=== PATIENT | female | born 1955 | race Caucasian/White ===

== ENCOUNTER → 2017-04-15 | Outpatient (CLI) | payer BC ==
--- NOTE | 2017-04-11 08:23 | MH ---
cc: CARLYLE MARTÍNEZ DATE OF ADMISSION 04/15/2017 ADMISSION DIAGNOSIS Cloudy posterior capsule right eye. HISTORY OF PRESENT ILLNESS This 61-year-old white female who is coming through [facility] for the purpose of a YAG laser posterior capsulotomy on the right eye. She had noticed decreasing visual acuity interfering with her daily activities and was found to have a cloudy posterior capsule in her right eye and a cataract in her left eye. She has elected to have a YAG laser posterior capsulotomy in her right eye at this time and then later will proceed with cataract surgery. PAST MEDICAL HISTORY The patient has a history of diabetes type 1. PAST SURGICAL HISTORY Includes finger surgery in 2016. MEDICATIONS Daily medications include: 1. Irbesartan 2. Raloxifene 3. Calcium 4. Insulin 5. 325 mg of aspirin at bedtime. ALLERGIES She has no known allergies. SOCIAL HISTORY Noncontributory FAMILY HISTORY Positive for parents with glaucoma. REVIEW OF SYSTEMS Noncontributory PHYSICAL EXAM On ocular exam, the patient's best corrected visual acuity in room light is 20/40 -1 in the right eye and 20/50 -1 in the left. Visual petersen are full to confrontation testing. Extraocular muscle exam reveals full versions with orthophoria in the distance and exophoria at near. Pupils are 3 mm equal, round, reactive to light without afferent defect. Anterior segment examination reveals a posterior chamber intraocular lens in place in the right eye with a cloudy posterior capsule. There is nuclear sclerotic and central anterior cortical cataract change in the left eye. Intraocular pressure is 17 in the right eye and 18 in the left by applanation tonometry. Dilated fundus exam revealed sharp disk with cup-to-disk ratio 0.2 bilaterally. There is one microaneurysm noted parafoveally in the right eye and the macula is clear in the left. A posterior vitreous detachment is present bilaterally. There is fine background drusen present around the ends of the vessel arcades. IMPRESSION 1. Cloudy posterior capsule right eye. 2. Pseudophakia right eye. 3. Cataract left eye. 4. Posterior vitreous detachment both eyes. 5. Minimal nonproliferative diabetic retinopathy right eye. PLAN YAG laser posterior capsulotomy of the right eye through [facility]. MD CHRIS Feliciano/SANJANA /10:44 AM /8:19 AM
[~2017-04-15] MED LIST: AMIT10TA6 PO; BALANCED SALT SOLN OPHT IRRIG 15 ML BTL ONE; ESTR42.5V VAGINAL; FLUOROMETHOLONE 0.25% OPHT SUSP 5 ML BTL ONE; FLUT50SP EACH NARE; HYPROMELLOSE 0.3 % OPTH GEL 10 GM (0.34 FL OZ) TUBE ONE; IRBE150T15 PO; MULT-65 PO; NOVOLOGP2 SQ; PHENYLEPHRINE HCL 2.5% OPTH SOLN 2 ML BTL ONE; PROPARACAINE HCL 0.5% OPHT SOLN 15 ML BTL ONE; RALO1TAB PO; TROPICAMIDE 1% OPHT SOLN 15 ML BTL ONE; [UNRECOGNIZED DRUG - CODE] TOP
--- NOTE | 2017-04-16 15:22 | MP ---
cc: CARLYLE SWEET DATE OF SURGERY: 04/15/2017 PREOPERATIVE DIAGNOSIS: Cloudy posterior capsule right eye. POSTOPERATIVE DIAGNOSIS: Cloudy posterior capsule right eye. OPERATION: YAG laser posterior capsulotomy, right eye. SURGEON: Carlyle Sweet MD ANESTHESIA: Topical. COMPLICATIONS: None. INDICATIONS: See history and physical previously dictated. PROCEDURE: The patient arrived at [facility]. Blood pressure was 95/57, pulse 84, respirations 16. A drop of Alphagan P and Mydriacyl were instilled in the right eye. The patient was seated at the YAG laser. A drop of Alcaine was instilled in the right eye and a YAG laser posterior capsulotomy lens was placed on the anterior surface of the right cornea. YAG laser posterior capsulotomy was carried out utilizing 22 exposures of 1.8 millijoules. An adequate opening was seen following the procedure. A drop of Alphagan P was instilled topically. The patient was given a prescription for a topical steroid to be used four times per day and has an appointment for follow up on the first postoperative day in my office. The patient left the [facility] in satisfactory condition. Carlyle Sweet MD DIRECTOR PERIOPERATIVE/ /12:09 PM /3:12 PM
== END ==
LOC: PHSDC 10:27
PROVIDERS: ATTEND Ophthalmology
DX: H26.40 Unspecified secondary cataract (principal)

== ENCOUNTER → 2017-05-06 | Outpatient (CLI) | payer BC ==
[~2017-05-06] MED LIST changes: -BALANCED SALT SOLN OPHT IRRIG 15 ML BTL ONE; -FLUOROMETHOLONE 0.25% OPHT SUSP 5 ML BTL ONE; -HYPROMELLOSE 0.3 % OPTH GEL 10 GM (0.34 FL OZ) TUBE ONE; -PHENYLEPHRINE HCL 2.5% OPTH SOLN 2 ML BTL ONE; -PROPARACAINE HCL 0.5% OPHT SOLN 15 ML BTL ONE; -TROPICAMIDE 1% OPHT SOLN 15 ML BTL ONE
[2017-05-06 11:08] LABS: AUTOMATED NEUTROPHIL # 2.5 TH/MM3 (1.8-7.7); BASOPHIL % 0.6 % (0.0-2.0); EOSINOPHIL # 0.1 TH/MM3 (0-0.4); EOSINOPHIL % 2.9 % (0.0-4.0); HEMATOCRIT 37.8 % (35.0-46.0); HEMO FLAGS DIFF FINAL; LYMPH % 33.2 % (9.0-44.0); LYMPHOCYTE # 1.6 TH/MM3 (1.0-4.8); MEAN CELL VOLUME 95.5 FL (80.0-100.0); MEAN CORPUSCULAR HEMOGLOBIN 32.6 PG (27.0-34.0); MEAN CORPUSCULAR HGB CONC 34.2 % (32.0-36.0); MONO % 14.6 % (0.0-8.0); NEUT % 48.7 % (16.0-70.0); PLATELET COUNT 272 TH/MM3 (150-450); RED BLOOD COUNT 3.95 MIL/MM3 (4.00-5.30); RED CELL DISTRIBUTION WIDTH 12.5 % (11.6-17.2); WHITE BLOOD COUNT 4.9 TH/MM3 (4.0-11.0)
--- NOTE | 2017-05-06 11:51 | EKG ---
Date Performed: 05/06/2017 Time Performed: 11:07:30 PTAGE: 61 years EKG: Sinus rhythm WITH SHORT MS INTERVAL BORDERLINE ECG PREVIOUS TRACING : 01/21/2015 14.44 No significant change from previous tracing noted DOCTOR: Pedrito Jimenes Interpretating Date/Time 05/06/2017 11:50:44
== END ==
LOC: PHPRE 08:45
PROVIDERS: ATTEND Ophthalmology
DX: Z01.810 Encounter for preprocedural cardiovascular examination (principal); Z01.812 Encounter for preprocedural laboratory examination; H26.9 Unspecified cataract; R94.31 Abnormal electrocardiogram [ECG] [EKG]
CPT/HCPCS: 36415; 85025; 93005

== ENCOUNTER → 2017-05-20 | Day surgery (SDC) | payer BC ==
--- NOTE | 2017-05-14 13:36 | MH ---
cc: [facility], CARLYLE MARTÍNEZ DATE OF ADMISSION: 05/20/2017 ADMISSION DIAGNOSIS Cataract, left eye. HISTORY OF PRESENT ILLNESS This 61-year-old white female is coming through [facility] for the purpose of a lens extraction of the left eye with intraocular lens implant under local anesthesia. The patient has a history of cataract surgery and YAG laser posterior capsulotomy in her right eye in the past and has done well postoperatively. She now has noticed decreased acuity in that her left eye and elected to have a cataract procedure in that eye at this time. Her best-corrected visual acuity is 20/25 -3 in the right eye and 20/60 in the left eye. PAST MEDICAL HISTORY The patient has a history of type 1 diabetes. PAST SURGICAL HISTORY 1. Finger surgery in 2016. 2. The above-mentioned cataract surgery and YAG laser posterior capsulotomy on the right eye in the past. MEDICATIONS Daily medications include: 1. Irbesartan. 2. Raloxifene. 3. Calcium. 4. Insulin. 5. One regular aspirin at bedtime. ALLERGIES The patient has no known allergies. SOCIAL HISTORY The patient smoked cigarettes in the past for 20 years, just a few cigarettes a day, but now no longer smokes. She also has a history of drinking two beers daily in the evening. FAMILY HISTORY The family history is positive for mother and father with cataracts. REVIEW OF SYSTEMS HEAD: Patient denies severe headaches, dizziness or recent head injury. EARS: Patient denies hearing loss, ear pain, discharge or ringing in the ears. NOSE: Patient denies nasal discharge, obstruction or frequent colds. MOUTH AND THROAT: Patient denies soreness of the mouth or tongue, bleeding gums, trouble swallowing, changes in voice or sore throat. NECK: Patient denies neck pain or swelling, limitation of neck movement or neck injury. CARDIOPULMONARY SYSTEM: Patient denies shortness of breath, orthopnea, chronic cough, sputum production, hemoptysis, chest pain, wheezing, palpitations or light-headedness. GI SYSTEM: Patient denies poor appetite, nausea, vomiting, abdominal pain, ulcers, hemorrhoids or change in bowel habits. SYSTEM: The patient denies urinary frequency, dysuria, change in urine color. NERVOUS SYSTEM: Patient denies convulsions, vertigo, stroke, numbness or weakness. PHYSICAL EXAMINATION VITAL SIGNS: Blood pressure 100/58, pulse 88, respirations 20. HEAD: Normocephalic, atraumatic. NOSE: Without rhinorrhea. THROAT: Clear. NECK: Supple. CHEST: Clear. HEART: Regular rhythm. ABDOMEN: Without tenderness. EXTREMITIES: Without edema. NEUROLOGIC: Within normal limits. MENTAL STATUS: Within normal limits. EYE EXAM: The patient's best-corrected visual acuity is 20/25 -3 in the right eye and 20/60 in the left. Visual petersen are full to confrontation testing. Extraocular muscle exam reveals full versions with orthophoria in the distance and exophoria at near. Pupils are 3 mm, equal, round, reactive to light without afferent defect. Anterior segment examination reveals a posterior chamber intraocular lens in place in the right eye with a YAG laser posterior capsulotomy. There are nuclear sclerotic and central anterior cortical cataract changes in the left eye. Intraocular pressure is 20 in the right eye and 17 in the left eye by applanation tonometry. Dilated fundus exam reveals sharp disks with cup-to-disk ratio of 0.2 bilaterally. The macula is clear bilaterally. A posterior vitreous detachment is present bilaterally and there are fine drusen in the background, particularly in the right eye. IMPRESSION 1. Cataract, left eye. 2. Pseudophakia, right eye. 3. Posterior vitreous detachment, both eyes. PLAN The plan is lens extraction of the left eye with intraocular lens implant under local anesthesia through [facility]. The patient has been cleared medically. She has been counseled as to the risks, benefits and alternatives and elected to proceed. I feel that cataract surgery will improve the quality of life and activities of daily living in this patient. MD CHRIS Feliciano/MAXIMILIAN /1:07 PM /1:25 PM
[~2017-05-20] VITALS: Ht 154.9 cm; Wt 47.5 kg
[~2017-05-20] MED LIST changes: +ACETYLCHOLINE CHL OPHT SOLN 1:100 2 ML VIAL ONE; +CHLORHEXIDINE GLUCONATE 2 % 1 PACK (2 CLOTHS) TOPICAL PRN; +EPINEPHrine HCL (1:1000) 1 MG/ML VIAL ONE; +HYALURONIDASE/LIDOCAINE/BUPIVACAINE 4.5 ML SYR LEFT EYE ONE; +HYALURONIDASE/LIDOCAINE/BUPIVACAINE 6 ML SYR LEFT EYE ONE; +INSULIN HUMAN REGULAR 1,000 UNITS/10 ML VIAL SQ PRN; +LACTATED RINGER'S 1000 ML IV PRN; +METOPROLOL TARTRATE 25 MG TAB PO PRN; +MIDAZOLAM HCL 2 MG/2 ML VIAL ONE; +PILOCARPINE HCL 2% OPHT SOLN 15 ML BTL ONE; +POVIDONE IODINE 5% (ANTISEPSIS KIT) 4 APPLICATIONS EACH NARE PRN; +PROPARACAINE HCL 0.5% OPHT SOLN 15 ML BTL LEFT EYE ONE; +PROPOFOL 200 MG/20 ML AMP ONE; +SODIUM CHLOR 0.9% 250 ML INJ 250 ML IV ONE; +SODIUM CHLORID 0.9% 500 ML IV PRN; +TOBRAMYCIN/DEXAMETHASONE OPTH OINT 3.5 GM TUBE ONE; +VISCOAT OPHT IRRIG SOLN 0.75 ML SYRINGE ONE; -[UNRECOGNIZED DRUG - CODE] TOP
[2017-05-20] MEDS: CYCLOPENTOLATE HCL 1% OPHT SOLN 2 ML BTL LEFT EYE SCH ×4 (08:29→08:38)
[2017-05-20] MEDS: PHENYLEPHRINE HCL 2.5% OPTH SOLN 2 ML BTL LEFT EYE SCH ×4 (08:29→08:38)
[2017-05-20] MEDS: TROPICAMIDE 1% OPHT SOLN 15 ML BTL LEFT EYE SCH ×4 (08:29→08:38)
[2017-05-20] MEDS: GATIFLOXACIN 0.5% OPHT SOLN 2.5 ML BTL LEFT EYE SCH ×4 (08:29→08:38)
[2017-05-20] MEDS: DICLOFENAC SOD 0.1% OPHT SOLN 2.5 ML BTL LEFT EYE SCH ×4 (08:29→08:38)
[2017-05-20 08:30] VITALS: PULSE 80
[2017-05-20 09:07] VITALS: PULSE 76
[2017-05-20 11:10] VITALS: TEMP 98.8
--- NOTE | 2017-05-20 11:19 | MP ---
cc: CARLYLE SWEET DATE OF SURGERY: 05/20/2017 PREOPERATIVE DIAGNOSIS Cataract, left eye. POSTOPERATIVE DIAGNOSIS Cataract left eye. OPERATION Extracapsular cataract extraction with posterior chamber intraocular lens implant by phacoemulsification, left eye. SURGEON Carlyle Sweet M.D. ANESTHESIA Local. COMPLICATIONS None. INDICATIONS See history and physical previously dictated. OPERATIVE PROCEDURE The patient had adequate retrobulbar and eyelid blocks administered in the holding area and was brought to the operating room. The left eye was prepped and draped in the usual sterile ophthalmic manner. A lid speculum was inserted in the left eye. A 4-0 silk bridle suture was placed through the conjunctiva near the superior rectus muscle and it was tacked to the drape. A fornix-based conjunctival flap was prepared spanning approximately 5 mm in width. Hemostasis was obtained with wet-field cautery. A 3.5 mm groove was made 1 mm from the limbus and dissected up to the limbus in the form of a scleral pocket incision. A stab incision was then made at the 2 o'clock position. Viscoelastic was injected into the anterior chamber. The anterior chamber was entered with a 2.75 mm keratome through the scleral pocket incision. A 360 degree continuous curvilinear capsulorrhexis was then performed. Hydrodissection was utilized to divide the nucleus into inner and outer components and to separate the cortex from the capsule. Phacoemulsification was then utilized to remove the nucleus. The outer nuclear layer was removed with irrigation and aspiration and short bursts of ultrasound as necessary. The cortex was removed with the irrigation-aspiration handpiece. The posterior capsule was polished with the capsule polisher. Viscoelastic was injected into the capsular bag. The intraocular lens was inspected and found to be in good condition. The lens utilized was a Jeff, model [id number] with a power of +23.5 diopters. The lens was inserted into the capsular bag. The viscoelastic in the anterior chamber was then removed with the irrigation-aspiration handpiece. Viscoelastic was also removed from beneath the intraocular lens. The anterior chamber was filled with Miochol-E through the stab incision and pressurized. The wound was checked for leaks at this pressure and normalized pressure, and there were none. The 4-0 bridle suture was removed. The conjunctival flap was brought down over the wound and secured with cautery. Pilocarpine 2% eye drops were instilled topically. The lid speculum was removed. TobraDex ophthalmic ointment was applied. The eye was double patched and shielded. The patient tolerated the procedure well and left the Operating Room in satisfactory condition. MD CHRIS Feliciano/MAXIMILIAN /11:09 AM /11:15 AM
[2017-05-20 11:45] VITALS: BP 111/59; PULSE 84; RESP 15; O2SAT 93
== END | disposition home or self-care (01) ==
LOC: PHSDC 07:40
PROVIDERS: ATTEND Ophthalmology
DX: H26.9 Unspecified cataract (principal); H43.813 Vitreous degeneration, bilateral; E10.9 Type 1 diabetes mellitus without complications; Z87.891 Personal history of nicotine dependence
CPT/HCPCS: 00142; 66984; 82948; J0171; J2250; J7040; J7050; V2632

== ENCOUNTER 2017-11-28 14:24 | Inpatient (IN) | payer BC ==
[~2017-11-28] VITALS: Ht 162.6 cm; Wt 45.7 kg
[2017-11-28] VITALS (30 sets, daily range): BP systolic 81–176; BP diastolic 46–132; PULSE 88–124; RESP 13–41; TEMP 98.4; O2SAT 88–100
[~2017-11-28 14:24] MED LIST changes: -ACETYLCHOLINE CHL OPHT SOLN 1:100 2 ML VIAL ONE; -CHLORHEXIDINE GLUCONATE 2 % 1 PACK (2 CLOTHS) TOPICAL PRN; -EPINEPHrine HCL (1:1000) 1 MG/ML VIAL ONE; -HYALURONIDASE/LIDOCAINE/BUPIVACAINE 4.5 ML SYR LEFT EYE ONE; -HYALURONIDASE/LIDOCAINE/BUPIVACAINE 6 ML SYR LEFT EYE ONE; -INSULIN HUMAN REGULAR 1,000 UNITS/10 ML VIAL SQ PRN; -LACTATED RINGER'S 1000 ML IV PRN; -METOPROLOL TARTRATE 25 MG TAB PO PRN; -MIDAZOLAM HCL 2 MG/2 ML VIAL ONE; -PILOCARPINE HCL 2% OPHT SOLN 15 ML BTL ONE; -POVIDONE IODINE 5% (ANTISEPSIS KIT) 4 APPLICATIONS EACH NARE PRN; -PROPARACAINE HCL 0.5% OPHT SOLN 15 ML BTL LEFT EYE ONE; -PROPOFOL 200 MG/20 ML AMP ONE; -SODIUM CHLOR 0.9% 250 ML INJ 250 ML IV ONE; -SODIUM CHLORID 0.9% 500 ML IV PRN; -TOBRAMYCIN/DEXAMETHASONE OPTH OINT 3.5 GM TUBE ONE; -VISCOAT OPHT IRRIG SOLN 0.75 ML SYRINGE ONE
[2017-11-28] MEDS ORDERED: DEXT 5%-NACL 0.9% 1000 ML INJ 1,000 ML IV SCH (14:28)
[2017-11-28] MEDS ORDERED: SODIUM CHLOR 0.9% 1000 ML INJ 1,000 ML IV ONE ×2 (14:28→14:58)
[2017-11-28] MEDS ORDERED: POTASSIUM CHLOR 40 MEQ PREMIX 100 ML IV PRN ×2 (14:30)
[2017-11-28] MEDS ORDERED: SODIUM PHOSPHATE INJ 15 MMOL in SODIUM CHLORIDE 0.9% INJ 100 ML IV PRN (14:30)
[2017-11-28] MEDS ORDERED: SODIUM BICARBONATE 8.4% SOLN 50 MEQ/50 ML VIAL IV PUSH PRN ×2 (14:30)
[2017-11-28] MEDS ORDERED: INSULIN HUMAN REGULAR 1,000 UNITS/10 ML VIAL IV PUSH ONE (14:30)
[2017-11-28] MEDS ORDERED: POTASSIUM CHLOR 20 MEQ PREMIX 100 ML IV PRN ×5 (14:30)
[2017-11-28] MEDS ORDERED: INSULIN REGULAR (IV INFUSION) 100 UNITS in SODIUM CHLORIDE 0.9% INJ 99 ML IV PRN ×2 (14:30→14:45)
[2017-11-28] MEDS ORDERED: SODIUM CHLORIDE 0.9% FLUSH 10 ML FLUSH IVF PRN (14:30)
[2017-11-28] MEDS: SODIUM CHLOR 0.9% 1000 ML INJ 1,000 ML IV SCH ×3 (14:52→19:18)
[2017-11-28 15:17] LABS: AUTOMATED NEUTROPHIL # 21.8 TH/MM3 (1.8-7.7); BASOPHIL # 0.2 TH/MM3 (0-0.2); BASOPHIL % 0.7 % (0.0-2.0); HEMATOCRIT 35.1 % (35.0-46.0); HEMOGLOBIN 11.1 GM/DL (11.6-15.3); LYMPH % 6.8 % (9.0-44.0); LYMPHOCYTE # 1.7 TH/MM3 (1.0-4.8); MEAN CELL VOLUME 101.4 FL (80.0-100.0); MEAN CORPUSCULAR HEMOGLOBIN 32.1 PG (27.0-34.0); MEAN CORPUSCULAR HGB CONC 31.6 % (32.0-36.0); MONO % 5.4 % (0.0-8.0); MONOCYTE # 1.4 TH/MM3 (0-0.9); NEUT % 87.1 % (16.0-70.0); PLATELET COUNT 309 TH/MM3 (150-450); RED BLOOD COUNT 3.46 MIL/MM3 (4.00-5.30); RED CELL DISTRIBUTION WIDTH 13.1 % (11.6-17.2); WHITE BLOOD COUNT 25.1 TH/MM3 (4.0-11.0)
--- NOTE | 2017-11-28 15:17 | RADRPT ---
EXAM DATE/TIME: 11/28/2017 14:48 [facility] COMPARISON: CHEST SINGLE AP, January 21, 2015, 11:45. INDICATIONS : Short of breath MEDICAL HISTORY : Diabetes mellitus type I. SURGICAL HISTORY : None. ENCOUNTER: Initial ACUITY: 1 day PAIN SCORE: Non-responsive. LOCATION: Bilateral chest FINDINGS: Mild motion degraded AP view of the chest demonstrates a normal-sized cardiac silhouette. No effusion , consolidation, or pneumothorax is identified. There is a nodular density overlying the right lower lung zone measuring approximately 8 mm. The bones and soft tissues demonstrate no acute finding. CONCLUSION: 1. No acute finding is identified to explain the shortness of breath. 2. There is an 8mm nodule overlying the right lower lung zone. Based on location I believe this most likely represents a nipple shadow. However, consider repeat frontal and lateral chest x-ray with nipp le markers or consider chest CT for further evaluation. Uziel Troy MD on November 28, 2017 at 15:13 Board Certified Radiologist. This report was verified electronically.
[2017-11-28 15:24] LABS: CHLORIDE 102 MEQ/L (98-107); SODIUM (NA) 135 MEQ/L (136-145)
[2017-11-28 15:28] LABS: ALBUMIN 3.3 GM/DL (3.4-5.0); BICARBONATE 5.4 MEQ/L (21.0-32.0); BLOOD UREA NITROGEN 49 MG/DL (7-18); CALCIUM 8.2 MG/DL (8.5-10.1); MAGNESIUM 2.4 MG/DL (1.5-2.5)
[2017-11-28 15:32] LABS: ALT (GPT) 15 U/L (10-53); AST (GOT) 15 U/L (15-37); GLOMERULAR FILTRATION RATE 24 ML/MIN (>89); TOTAL BILIRUBIN ADULT 0.5 MG/DL (0.2-1.0)
[2017-11-28 15:36] LABS: BILIRUBIN, URINE NEG (NEG); BLOOD, URINE TRACE (NEG); GLUCOSE,URINE 1000 OR GREATER mg/dL (NEG); KETONE, URINE 80 OR GREATER mg/dL (NEG); NITRITE,URINE NEG (NEG); URINE COLOR YELLOW (YELLW/STRAW); URINE LEUKOCYTE ESTERASE NEG (NEG)
[2017-11-28] MEDS ORDERED: SODIUM BICARBONATE 8.4% SOLN 50 MEQ/50 ML VIAL SLOW IVP ONE (15:45)
[2017-11-28] MEDS ORDERED: CALCIUM GLUCONATE 10% 1 GM/10 ML VIAL SLOW IVP ONE (15:45)
[2017-11-28 15:47] LABS: RBC, URINE 0-3 /hpf (0-3); SQUAMOUS EPITHELIAL CELL URINE 0-5 /hpf (0-5)
[2017-11-28 15:52] LABS: ALKALINE PHOSPHATASE 71 U/L (45-117); TROPONIN I 0.04 NG/ML (0.02-0.05)
[2017-11-28 15:55] LABS: GLUCOSE,RANDOM 808 MG/DL (74-106)
[2017-11-28] MEDS ORDERED: SENNOSIDES 8.6 MG TAB PO PRN (16:00)
[2017-11-28] MEDS ORDERED: ACETAMINOPHEN/HYDROcodone 325 MG/5 MG TAB PO PRN (16:00)
[2017-11-28] MEDS ORDERED: MAGNESIUM HYDROXIDE SUSP 30 ML CUP PO PRN (16:00)
[2017-11-28] MEDS ORDERED: ACETAMINOPHEN 325 MG TAB PO PRN (16:00)
[2017-11-28] MEDS ORDERED: LACTULOSE SYRUP 20 GM/30 ML CUP PO PRN (16:00)
[2017-11-28] MEDS ORDERED: NURSING INFORMATION XX SCH ×2 (16:00→16:15)
[2017-11-28] MEDS: RESP: ALBUTEROL 2.5 MG/IPRATROPIUM 0.5 MG NEB (SCH) INH ×2 (16:00→22:05)
[2017-11-28] MEDS ORDERED: CHLORHEXIDINE GLUCONATE 2 % 1 PACK (2 CLOTHS) TOP PRN ×2 (16:00→16:15)
[2017-11-28] MEDS ORDERED: BISACODYL 10 MG SUPP RECTAL PRN (16:00)
[2017-11-28] MEDS ORDERED: SODIUM CHLORIDE 0.9% FLUSH 10 ML FLUSH IV FLUSH PRN (16:00)
[2017-11-28] MEDS ORDERED: ONDANSETRON HCL 4 MG/2 ML VIAL IV PUSH PRN ×2 (16:00→16:15)
[2017-11-28] MEDS ORDERED: RESP: ALBUTEROL 2.5 MG/IPRATROPIUM 0.5 MG NEB (PRN) INH (16:15)
--- NOTE | 2017-11-28 16:19 | RADRPT ---
EXAM DATE/TIME: 11/28/2017 15:46 [facility] COMPARISON: No previous studies available for comparison. INDICATIONS : Altered mental status. RADIATION DOSE: 36.07 CTDIvol (mGy) MEDICAL HISTORY : Diabetes mellitus type 2. SURGICAL HISTORY : None. ENCOUNTER: Initial ACUITY: 1 day PAIN SCALE: Non-responsive LOCATION: cranial TECHNIQUE: Multiple contiguous axial images were obtained of the head. Using automated exposure control and adj ustment of the mA and/or kV according to patient size, radiation dose was kept as low as reasonably a chievable to obtain optimal diagnostic quality images. DICOM format image data is available electro nically for review and comparison. FINDINGS: CEREBRUM: The ventricles are prominent suggesting central cerebral atrophy versus hydrocephalus. Clinical corre lation is recommended. No evidence of midline shift, mass lesion, hemorrhage or acute infarction. No extra-axial fluid collections are seen. POSTERIOR FOSSA: The cerebellum and brainstem are intact. The 4th ventricle is midline. The cerebellopontine angle i s unremarkable. EXTRACRANIAL: The visualized portion of the orbits is intact. SKULL: The calvaria is intact. No evidence of skull fracture. CONCLUSION: 1. Ventriculomegaly suggesting central cerebral atrophy versus hydrocephalus. Clinical correlation is recommended. 2. No acute infarct, acute hemorrhage, midline shift or extra-axial fluid collections. Dev Christopher MD on November 28, 2017 at 16:14 Board Certified Radiologist. This report was verified electronically.
[2017-11-28] MEDS ORDERED: MIDAZOLAM HCL 2 MG/2 ML VIAL IV PUSH ONE ×2 (16:30)
[2017-11-28] MEDS ORDERED: TERBUTALINE INJ 1 MG/ML AMP SQ PRN ×2 (16:30→17:00)
[2017-11-28] MEDS ORDERED: DOPamine 800 MG/500 ML INJ 500 ML IV PRN (16:30)
--- NOTE | 2017-11-28 17:03 | PD ---
HPI Chief Complaint: Altered Mental Status Time Seen by Provider: 14:28 Travel History International Travel<30 days: No Contact w/Intl Traveler<30days: No Traveled to known affect area: No History of Present Illness HPI 61-year-old female came to the emergency room with history of being found unresponsive and altered mental status. She was last seen normal by her boyfriend who had dropped her home after date in the evening. She recently had an insulin pump put in which she had mentioned to her boyfriend that she does not think is working. He did not hear back from her today and sent well visit check when the people found her unresponsive. EMS brought her in emergently with a GCS of 13 and blood sugar reading high on the monitor. She was tachycardic. Patient continued to be altered mental status and not responding with a GCS of 12. [facility] Past Medical History Narrative Medical List of her past medical, surgical, social and family history is reviewed from the nursing note. Cancer: No Cardiovascular Problems: No Diabetes: Yes (TYPE 1 DIABETES (INSULIN PUMP)) Patient Takes Glucophage: No Diminished Hearing: No Endocrine: Yes (TYPE 1 DIABETES (INSULIN PUMP)) Genitourinary: No Hepatitis: No Hiatal Hernia: No Hypertension: Yes Immune Disorder: No Musculoskeletal: No Neurologic: No Psychiatric: Yes (ANXIETY) Reproductive: No Respiratory: No Thyroid Disease: No Menopausal: Yes Past Surgical History Abdominal Surgery: No AICD: No Body Medical Devices: INSULIN PUMP Cardiac Surgery: No Ear Surgery: No Endocrine Surgery: No Eye Surgery: Yes (RIGHT CATARACT SURGERY) Genitourinary Surgery: No Gynecologic Surgery: No Joint Replacement: No Oral Surgery: Yes (DENTAL IMPLANTS) Pacemaker: No Thoracic Surgery: No Other Surgery: Yes Social History Alcohol Use: No Tobacco Use: No Substance Use: No Allergies-Medications (Allergen,Severity, Reaction): Coded Allergies: No Known Allergies (Unverified Allergy, Unknown, 11/28/17) Comments No known drug allergies. Reported Meds & Prescriptions Reported Meds & Active Scripts Active Fluticasone Nasal [place] 50 Mcg/Act Naspr 50 Mcg EACH NARE BID 50 mcg/spray Estrace Vaginal (Estradiol) 0.01% Cream 42.5 Gm VAGINAL HS Irbesartan 150 Mg Tab 150 Mg PO DAILY Reported Multi-Vitamin Daily (Multiple Vitamin) 1 Tab Tab 1 Tab PO DAILY Novolog Inj (Insulin Aspart) 1,000 Unit/10 Ml Vial 0 SQ DIRECTED INSULIN PUMP; SLIDING SCALE Amitriptyline (Amitriptyline HCl) 10 Mg Tab 10 Mg PO HS Raloxifene (Raloxifene HCl) 60 Mg Tab 60 Mg PO DAILY Narrative Medication List of her home medications reviewed from the nursing note. Review of Systems ROS Limitations: Altered Mental Status Except as stated in HPI: all other systems reviewed are Neg Physical Exam Narrative GENERAL: Altered mental status, not following commands, moderate distress SKIN: Focused skin assessment warm/dry. HEAD: Atraumatic. Normocephalic. EYES: Pupils equal and round. No scleral icterus. No injection or drainage. ENT: No nasal bleeding or discharge. Dry mucous membrane. NECK: Trachea midline. No JVD. CARDIOVASCULAR: Regular rate and rhythm. No murmur appreciated. RESPIRATORY: No accessory muscle use. Clear to auscultation. Breath sounds equal bilaterally. GASTROINTESTINAL: Abdomen soft, non-tender, nondistended. Hepatic and splenic margins not palpable. MUSCULOSKELETAL: No obvious deformities. No clubbing. No cyanosis. No edema. NEUROLOGICAL: GCS of 12. No obvious cranial nerve deficits. Motor grossly within normal limits. Mumbling. PSYCHIATRIC: Unable to assess. Data Data Last Documented VS Vital Signs Date Time Temp Pulse Resp B/P (MAP) Pulse Ox O2 Delivery O2 Flow Rate FiO2 11/28/17 15:41 120 16 81/64 (70) 97 Nasal Cannula 4.00 Orders Orders Electrocardiogram (11/28/17 14:28) Complete Blood Count With Diff (11/28/17 14:28) Comprehensive Metabolic Panel (11/28/17 14:28) Magnesium (Mg) (11/28/17 14:28) Beta Hydroxybutyrate (Acetone) (11/28/17 14:28) Urinalysis - C+S If Indicated (11/28/17 14:28) Chest, Single Ap (11/28/17 14:28) Arterial Blood Gas (Abg) (11/28/17 14:28) Ecg Monitoring (11/28/17 14:28) Iv Access Insert/Monitor (11/28/17 14:28) Oximetry (11/28/17 14:28) NPO (11/28/17 14:28) Sodium Chlor 0.9% 1000 Ml Inj (Ns 1000 M (11/28/17 14:28) Sodium Chlor 0.9% 1000 Ml Inj (Ns 1000 M (11/28/17 14:58) Sodium Chloride 0.9% Flush (Ns Flush) (11/28/17 14:30) Troponin I (11/28/17 14:28) Ct Brain W/O Iv Contrast(Rout) (11/28/17 ) Deep Submergence Vehicle Crewmember / Telemetry SULMA.Q8H (11/28/17 14:28) ^ Insert Iv (11/28/17 14:28) Diet Npo (11/28/17 Dinner) Sodium Chlor 0.9% 1000 Ml Inj (Ns 1000 M (11/28/17 14:28) Dext 5%-Nacl 0.9% 1000 Ml Inj (D5w-Ns 10 (11/28/17 14:28) Insulin Human Regular Inj (Novolin R Inj (11/28/17 14:30) Insulin Regular (Iv Infusion) (Novolin R (11/28/17 14:30) Potassium Chlor 40 Meq Premix (Kcl 40 Me (11/28/17 14:30) Potassium Chlor 40 Meq Premix (Kcl 40 Me (11/28/17 14:30) Potassium Chlor 20 Meq Premix (Kcl 20 Me (11/28/17 14:30) Potassium Chlor 20 Meq Premix (Kcl 20 Me (11/28/17 14:30) Potassium Chlor 20 Meq Premix (Kcl 20 Me (11/28/17 14:30) Potassium Chlor 20 Meq Premix (Kcl 20 Me (11/28/17 14:30) Potassium Chlor 20 Meq Premix (Kcl 20 Me (11/28/17 14:30) Potassium Chlor 20 Meq Premix (Kcl 20 Me (11/28/17 14:30) Sodium Bicarbonate 8.4% Inj (Sodium Bica (11/28/17 14:30) Sodium Bicarbonate 8.4% Inj (Sodium Bica (11/28/17 14:30) Sodium Phosphate Inj (Sodium Phosphate I (11/28/17 14:30) Hemoglobin (Hgb) A1c (11/28/17 14:28) Basic Metabolic Panel (Bmp) (11/28/17 19:28) Basic Metabolic Panel (Bmp) (11/29/17 01:28) Basic Metabolic Panel (Bmp) (11/29/17 07:28) Magnesium (Mg) (11/28/17 19:28) Magnesium (Mg) (11/29/17 01:28) Magnesium (Mg) (11/29/17 07:28) Phosphorus (Po4) (11/28/17 19:28) Phosphorus (Po4) (11/29/17 01:28) Phosphorus (Po4) (11/29/17 07:28) Beta Hydroxybutyrate (Acetone) (11/29/17 01:28) Insulin Regular (Iv Infusion) (Novolin R (11/28/17 14:45) Urinary Catheter Insert/Apply (11/28/17 15:32) Calcium Gluconate Inj (Calcium Gluconate (11/28/17 15:45) Sodium Bicarbonate 8.4% Inj (Sodium Bica (11/28/17 15:45) Admit Order (Ed Use Only) (11/28/17 15:48) Tylenol (Acetaminophen) (11/28/17 19:28) Troponin I (11/28/17 19:28) Thyroid Stimulating Hormone (11/28/17 19:28) Labs Laboratory Tests Test 11/28/17 14:42 11/28/17 15:07 11/28/17 15:28 Blood Gas Puncture Site LT BRACHIAL Blood Gas Patient Temperature 98.6 Blood Gas HCO3 3 mmol/L Blood Gas Base Excess -25.5 mmol/L Blood Gas Oxygen Saturation 96 % Arterial Blood pH 7.07 Arterial Blood Partial Pressure CO2 12 mmHG Arterial Blood Partial Pressure O2 157 mmHG Arterial Blood Oxygen Content 15.0 Vol % Arterial Blood Carboxyhemoglobin 1.1 % Arterial Blood Methemoglobin 1.4 % Blood Gas Hemoglobin 11.0 G/DL Oxygen Delivery Device NASAL CANNULA Blood Gas Liter Flow 4 L/M White Blood Count 25.1 TH/MM3 Red Blood Count 3.46 MIL/MM3 Hemoglobin 11.1 GM/DL Hematocrit 35.1 % Mean Corpuscular Volume 101.4 FL Mean Corpuscular Hemoglobin 32.1 PG Mean Corpuscular Hemoglobin Concent 31.6 % Red Cell Distribution Width 13.1 % Platelet Count 309 TH/MM3 Mean Platelet Volume 8.0 FL Neutrophils (%) (Auto) 87.1 % Lymphocytes (%) (Auto) 6.8 % Monocytes (%) (Auto) 5.4 % Eosinophils (%) (Auto) 0.0 % Basophils (%) (Auto) 0.7 % Neutrophils # (Auto) 21.8 TH/MM3 Lymphocytes # (Auto) 1.7 TH/MM3 Monocytes # (Auto) 1.4 TH/MM3 Eosinophils # (Auto) 0.0 TH/MM3 Basophils # (Auto) 0.2 TH/MM3 CBC Comment DIFF FINAL Differential Comment Urine Random Creatinine 25.6 MG/DL Urine Random Sodium 48 MEQ/L Blood Urea Nitrogen 49 MG/DL Creatinine 2.10 MG/DL Random Glucose 808 MG/DL Total Protein 6.0 GM/DL Albumin 3.3 GM/DL Calcium Level 8.2 MG/DL Magnesium Level 2.4 MG/DL Alkaline Phosphatase 71 U/L Aspartate Amino Transf (AST/SGOT) 15 U/L Alanine Aminotransferase (ALT/SGPT) 15 U/L Total Bilirubin 0.5 MG/DL Sodium Level 135 MEQ/L Potassium Level 6.0 MEQ/L Chloride Level 102 MEQ/L Carbon Dioxide Level 5.4 MEQ/L Anion Gap 28 MEQ/L Estimat Glomerular Filtration Rate 24 ML/MIN Total Creatine Kinase 82 U/L Troponin I 0.04 NG/ML Amylase Level 13 U/L Lipase 63 U/L Salicylates Level 4.1 MG/DL Urine Opiates Screen NEG Urine Barbiturates Screen NEG Urine Amphetamines Screen NEG Urine Benzodiazepines Screen NEG Urine Cocaine Screen NEG Urine Cannabinoids Screen NEG Ethyl Alcohol Level LESS THAN 3 MG/DL B-Hydroxybutyrate 10.53 MMOL/L Urine Collection Type CATH Urine Color YELLOW Urine Turbidity CLEAR Urine pH 5.0 Urine Specific [place] 1.020 Urine Protein NEG mg/dL Urine Glucose (UA) 1000 OR GREATER mg/dL Urine Ketones 80 OR GREATER mg/dL Urine Occult Blood TRACE Urine Nitrite NEG Urine Bilirubin NEG Urine Urobilinogen 0.2 MG/DL Urine Leukocyte Esterase NEG Urine RBC 0-3 /hpf Urine Squamous Epithelial Cells 0-5 /hpf Microscopic Urinalysis Comment CULT NOT INDICATED Urine Eosinophils NONE SEEN /HPF Urine Collection Time 15:28 MDM Medical Decision Making Medical Screen Exam Complete: Yes Emergency Medical Condition: Yes Medical Record Reviewed: Yes Interpretation(s) Twelve-lead EKG was reviewed by me. Normal sinus rhythm, normal axis, tachycardia, motion artifact. Heart rate of 112 bpm. Differential Diagnosis DKA, intracranial bleed, metabolic encephalopathy Narrative Course 4:58 PM Since patient arrived till now she has received 3 L of IV fluid bolus. Her blood sugar upon arrival again read "high" on the ER glucometer. Patient was started on DKA protocol with 10 units of insulin bolus. Labs have returned and blood sugar is more than 800. Patient is in acute renal failure with hyperkalemia. I have ordered her 3 Amps of bicarb and IV calcium gluconate 1 amp although there seems to me to be a delay in the administration of these meds from nursing standpoint in the ER. I have made the nurse aware regarding the urgency and acuity of the situation. Patient has a Méndez catheter and is making urine. Her mental status has not improved. Blood pressure in spite of the fluid boluses has remained in the 80s-90s systolic. I just finished putting a central line. Please refer to my procedure note. A chest x-ray has been done. I discussed the case with the hydro mechanic Dr. Thrasher. In my opinion patient is in a critical condition and should be transferred at the ICU in the [facility]. He is down here to see the patient. As per him and Dr. Gardner patient can stay in this ICU. Awaiting for the chest x-ray report after the line placement. The CT scan of the head is read by the radiologist as ventriculomegaly but otherwise no acute findings. Patient has significant leukocytosis as well. Critical Care Narrative Aggregate critical care time was 75 minutes. Time to perform other separately billable procedures was not included in the critical care time. My time did not include minutes spent treating any other patients simultaneously or on activities that did not directly contribute to the patient's treatment. The services I provided to this patient were to treat and/or prevent clinically significant deterioration that could result in: DKA, severe metabolic acidosis, altered mental status, shock, acute renal failure, hyperkalemia I provided critical care services requiring my management, as noted below: Chart data review, documentation time, medication orders and management, vital sign assessments/reviewing monitor data, ordering and reviewing lab tests, ordering and interpreting/reviewing x-rays and diagnostic studies, care of the patient and discussion of the patient with the admitting physicians. Procedures Procedure Narrative Emergency department US guided Internal Jugular was performed with patient consent. Linear probe was used in the transverse and sagittal views of the Internal Jugular to assist with vascular access. The deep vein was cannulated using normal Seldinger technique. A triple lumen central line was placed in the right IJ site and secured with simple interrupted suture. The site was sterilely dressed. The patient tolerated the procedure well. EKG Prior to Arrival: Yes Physician Communication Physician Communication Dr. Thrasher Diagnosis Primary Impression: DKA (diabetic ketoacidoses) Qualified Codes: E10.11 - Type 1 diabetes mellitus with ketoacidosis with coma Additional Impressions: Altered mental status Qualified Codes: R40.1 - Stupor Metabolic acidosis Shock Acute renal failure Qualified Codes: N17.9 - Acute kidney failure, unspecified Hyperkalemia Admitting Information Admitting Physician Requests: it Tarun Javier MD Nov 28, 2017 17:03
--- NOTE | 2017-11-28 17:21 | HHI.HP ---
[facility] Service Critical Care Medicine Primary Care Physician Zunilda Dwyer M.D. Admission Diagnosis DKA, altered mental status, hyperkalemia, acute renal failure Diagnosis: (1) Macrocytic anemia Diagnosis: Secondary (2) Leukocytosis Diagnosis: Principal (3) Acute kidney injury Diagnosis: Principal (4) Hyponatremia Diagnosis: Secondary (5) Hypotension Diagnosis: Principal (6) DM type 1 (diabetes mellitus, type 1) Diagnosis: Principal (7) DKA (diabetic ketoacidoses) Diagnosis: Principal (8) Acute renal failure Diagnosis: Principal (9) Hyperkalemia Diagnosis: Principal (10) Shock Diagnosis: Principal (11) Tobacco abuse Diagnosis: Secondary Chief Complaint: Patient brought in with altered mental status Travel History International Travel<30 Days: No Contact w/Intl Traveler <30 Da: No Traveled to Known Affected Are: No History of Present Illness This is a 51-year-old female. Date of admission 11/28/2017. Past medical history includes diabetes mellitus type 1 uncontrolled insulin- dependent with retinopathy on home insulin pump, hypertension, allergic rhinitis and chronic benzodiazepine use. She also has history of breast cancer on raloxifene she originally presented to [facility] ED During the workup, patient was noted to have a blood sugar of 808. Elevated acetone. Sodium 135. Potassium 6.0. Ferritin 2.1. Leukocytosis 25,000. Macrocytic anemia. UA negative for infectious etiology. She was bolused with 3 L of 0.9% NaCl IV fluid bolus. She is received 3 ampules of sodium bicarbonate and 1 g calcium gluconate. Chest x-ray post procedure revealed the CT scan of the head is read by the radiologist as ventriculomegaly but otherwise no acute findings. Review of Systems ROS Limitations: Altered Mental Status Past Family Social History Allergies: Coded Allergies: No Known Allergies (Unverified Allergy, Unknown, 11/28/17) Past Medical History Breast cancer Insulin-dependent diabetes mellitus type 1 uncontrolled Osteoporosis/arthritis Allergic rhinitis Tobaccoism Chronic benzodiazepine use Past Surgical History YAG laser right posterior capsulotomy Reported Medications Irbesartan 150 mg p.o. daily Raloxifene 60 mg p.o. daily Insulin pump with insulin aspart Fluticasone 50 mg inhalation daily Amitriptyline 10 mg p.o. daily Estradiol cream 0.01% at night Multivitamin 1 tablet daily Active Ordered Medications Reviewed in EMR Family History Father from cancer unknown type. History of myocardial infarct age 51 Both parents with glaucoma. Mother with rheumatoid arthritis Social History 1-2 beers daily per report. Positive tobaccoism. No IV drug use Physical Exam Vital Signs Vital Signs Date Time Temp Pulse Resp B/P (MAP) Pulse Ox O2 Delivery O2 Flow Rate FiO2 11/28/17 15:41 120 16 81/64 (70) 97 Nasal Cannula 4.00 11/28/17 14:53 88 16 93/55 (68) 98 Room Air 11/28/17 14:36 90 11/28/17 14:30 124 22 176/132 (147) 88 Physical Exam GENERAL: 61-year-old female currently resting in bed with end-tidal CO2 on confused SKIN: Warm and dry. No rash HEAD: Atraumatic. Normocephalic. EYES: Pupils equal and round about 2 mm bilaterally reactive. No scleral icterus. No injection or drainage. ENT: No nasal bleeding or discharge. Mucous membranes pink and dry. NECK: Trachea midline. No JVD. CARDIOVASCULAR: Tachycardic, RR. S1, S3 no S4.. No murmur RESPIRATORY: Keep to be essentially clear. No wheezing GASTROINTESTINAL: Abdomen soft, non-tender, nondistended. Hyperactive bowel sounds appreciated MUSCULOSKELETAL: Extremities without lifting peripheral edema. No obvious deformities. NEUROLOGICAL: Arousable but falls asleep quickly. No obvious cranial nerve deficits. Motor grossly within normal limits. Five out of 5 muscle strength in the arms and legs. Normal speech. Laboratory Laboratory Tests Test 11/28/17 14:42 11/28/17 15:07 11/28/17 15:28 11/28/17 16:45 Blood Gas Puncture Site LT BRACHIAL CENTRAL LINE Blood Gas Patient Temperature 98.6 98.6 Blood Gas HCO3 3 Blood Gas Base Excess -25.5 Blood Gas Oxygen Saturation 96 Arterial Blood pH 7.07 Arterial Blood Partial Pressure CO2 12 Arterial Blood Partial Pressure O2 157 Arterial Blood Oxygen Content 15.0 Arterial Blood Carboxyhemoglobin 1.1 Arterial Blood Methemoglobin 1.4 Blood Gas Hemoglobin 11.0 Oxygen Delivery Device NASAL CANNULA ROOM AIR Blood Gas Liter Flow 4 White Blood Count 25.1 Red Blood Count 3.46 Hemoglobin 11.1 Hematocrit 35.1 Mean Corpuscular Volume 101.4 Mean Corpuscular Hemoglobin 32.1 Mean Corpuscular Hemoglobin Concent 31.6 Red Cell Distribution Width 13.1 Platelet Count 309 Mean Platelet Volume 8.0 Neutrophils (%) (Auto) 87.1 Lymphocytes (%) (Auto) 6.8 Monocytes (%) (Auto) 5.4 Eosinophils (%) (Auto) 0.0 Basophils (%) (Auto) 0.7 Neutrophils # (Auto) 21.8 Lymphocytes # (Auto) 1.7 Monocytes # (Auto) 1.4 Eosinophils # (Auto) 0.0 Basophils # (Auto) 0.2 CBC Comment DIFF FINAL Differential Comment Blood Urea Nitrogen 49 Creatinine 2.10 Random Glucose 808 Total Protein 6.0 Albumin 3.3 Calcium Level 8.2 Magnesium Level 2.4 Alkaline Phosphatase 71 Aspartate Amino Transf (AST/SGOT) 15 Alanine Aminotransferase (ALT/SGPT) 15 Total Bilirubin 0.5 Sodium Level 135 Potassium Level 6.0 Chloride Level 102 Carbon Dioxide Level 5.4 Anion Gap 28 Estimat Glomerular Filtration Rate 24 Total Creatine Kinase 82 Troponin I 0.04 Amylase Level 13 Lipase 63 Urine Opiates Screen NEG Urine Barbiturates Screen NEG Urine Amphetamines Screen NEG Urine Benzodiazepines Screen NEG Urine Cocaine Screen NEG Urine Cannabinoids Screen NEG Ethyl Alcohol Level LESS THAN 3 B-Hydroxybutyrate 10.53 Urine Collection Type CATH Urine Color YELLOW Urine Turbidity CLEAR Urine pH 5.0 Urine Specific [place] 1.020 Urine Protein NEG Urine Glucose (UA) 1000 OR GREATER Urine Ketones 80 OR GREATER Urine Occult Blood TRACE Urine Nitrite NEG Urine Bilirubin NEG Urine Urobilinogen 0.2 Urine Leukocyte Esterase NEG Urine RBC 0-3 Urine Squamous Epithelial Cells 0-5 Microscopic Urinalysis Comment CULT NOT INDICATED Urine Collection Time 15:28 Venous Blood pH 7.04 Venous Blood Partial Pressure CO2 19 Venous Blood Partial Pressure O2 56 Venous Blood HCO3 5 Venous Blood Oxygen Saturation 76 Venous Blood Oxygen Content 12.0 Venous Blood Base Excess -23.9 Blood Gas Inspired Oxygen 21 Date/Time Source Procedure Growth Status 11/28/17 15:28 Urine Catheterized Urine Urine Culture Pending Received Result Diagram: 11/28/17 1507 11/28/17 1507 Imaging Last Impressions Chest X-Ray 11/28/17 1428 Signed Impressions: Service Date/Time: November 14:48 - CONCLUSION: 1. No acute finding is identified to explain the shortness of breath. 2. There is an 8mm nodule overlying the right lower lung zone. Based on location I believe this most likely represents a nipple shadow. However, consider repeat frontal and lateral chest x-ray with nipple markers or consider chest CT for further evaluation. Uziel Troy MD Head CT 11/28/17 0000 Signed Impressions: Service Date/Time: November 15:46 - CONCLUSION: 1. Ventriculomegaly suggesting central cerebral atrophy versus hydrocephalus. Clinical correlation is recommended. 2. No acute infarct, acute hemorrhage, midline shift or extra-axial fluid collections. Dev Christopher MD Septic Shock Reassessment Septic shock perfusion: reassessment completed Caprini VTE Risk Assessment Caprini VTE Risk Assessment: Mod/High Risk (score >= 2) Caprini Risk Assessment Model Point Value = 1 Point Value = 2 Point Value = 3 Point Value = 5 Age 41-60 Minor surgery BMI > 25 kg/m2 Swollen legs Varicose veins or History of unexplained or recurrent spontaneous Oral contraceptives or hormone replacement Sepsis (< 1 month) Serious lung disease, including pneumonia (< 1 month) Abnormal pulmonary function Acute myocardial infarction Congestive heart failure (< 1 month) History of inflammatory bowel disease Medical patient at bed rest Age 61-74 Arthroscopic surgery Major open surgery (> 45 min) Laparoscopic surgery (> 45 min) Malignancy Confined to bed (> 72 hours) Immobilizing plaster cast Central venous access Age >= 75 History of VTE Family history of VTE Factor V Leiden Prothrombin [id number] Lupus anticoagulant Anticardiolipin antibodies Elevated serum homocysteine Heparin-induced thrombocytopenia Other congenital or acquired thrombophilia Stroke (< 1 month) Elective arthroplasty Hip, pelvis, or leg fracture Acute spinal cord injury (< 1 month) Prophylaxis Regimen Total Risk Factor Score Risk Level Prophylaxis Regimen 0-1 Low Early ambulation 2 Moderate Order ONE of the following: *Sequential Compression Device (SCD) *Heparin 5000 units SQ BID 3-4 Higher Order ONE of the following medications: *Heparin 5000 units SQ TID *Enoxaparin/Lovenox 40 mg SQ daily (WT < 150 kg, CrCl > 30 mL/min) *Enoxaparin/Lovenox 30 mg SQ daily (WT < 150 kg, CrCl > 10-29 mL/min) *Enoxaparin/Lovenox 30 mg SQ BID (WT < 150 kg, CrCl > 30 mL/min) AND/OR *Sequential Compression Device (SCD) 5 or more Highest Order ONE of the following medications: *Heparin 5000 units SQ TID (Preferred with Epidurals) *Enoxaparin/Lovenox 40 mg SQ daily (WT < 150 kg, CrCl > 30 mL/min) *Enoxaparin/Lovenox 30 mg SQ daily (WT < 150 kg, CrCl > 10-29 mL/min) *Enoxaparin/Lovenox 30 mg SQ BID (WT < 150 kg, CrCl > 30 mL/min) AND *Sequential Compression Device (SCD) Assessment and Plan Assessment and Plan Neuro/Psych: Acute metabolic encephalopathy secondary to diabetic ketoacidosis Anxiety disorder NOS Benzodiazepine use Ofirmev 1 g IV every 8 hours as needed fever/pain 1-10 Morphine sulfate 2 mg IV every 2 hours as needed breakthrough CT brain 11/28 revealed Ventriculomegaly suggesting central cerebral atrophy versus hydrocephalus. Clinical correlation is recommended. No acute infarct, acute hemorrhage, midline shift or extra-axial fluid collections. She is on amitriptyline 10 mg daily at home. This has been held UDS pending CV: Sinus tachycardia History of hypertension D5 normal saline at 250 cc an hour Phenylephrine drip to maintain mean arterial pressure greater than equal to 65 Lactate pending Patient is on irbesartan 150 mg daily Toprol and this is been held in light of acute hypotension secondary to volume depletion Resp: Tobacco abuse/ongoing Nasal cannula to maintain saturations greater than or equal to 92% Incentive spirometry while awake Albuterol/ipratropium aerosols every 6 hours with albuterol aerosols every 2 hours as needed dyspnea Follow-up chest x-ray 0 Noted initial chest x-ray revealed calcifications and will need CT follow-up. GI: Hypoalbuminemia Patient is currently n.p.o. Pantoprazole 40 mg IV daily for GI prophylaxis Docusate sodium/senna 1 tablet twice daily for bowel regimen : Méndez catheter has been placed for accurate I's and O's in a critically ill patient Endo: Insulin-dependent diabetes mellitus type 1 uncontrolled Diabetic ketoacidosis Patient is received 3 L normal saline in the ED along with 3 refills and bicarbonate, 1 ampule of calcium gluconate. Bolused with 10 U insulin and currently on drip at 4.5 units an hour BMP, magnesium phosphorus every 6 hours Beta hydroxybutyrate every 12 hours until cleared Insulin pump is currently been disconnected Renal: Acute kidney injury with history of normal renal function likely secondary to severe dehydration Urine sodium, creatinine and eosinophils pending Renal ultrasound ordered Serial BMP Heme: Leukocytosis Macrocytic anemia Monitor CBC daily. Follow trends ID: BC x2, UA (-) inf A/B pending MSK: PT eval and tx FEN: HypoNa+ Hyper K+ Replace electrolytes as clinically indicated per protocol Access Right IJ CVL day #1 placed 11/28 ED Prophylaxis -GI -pantoprazole -DVT -SCD/heparin subcu Critical Care: The total critical care time was 35 minutes. Time to perform other separately billable procedures was not included in the critical care time. Code Status Full code Discussed Condition With Dr. Javier/ED physician. Care plan discussed. All questions answered. Problem Qualifiers (1) Leukocytosis: Qualified Codes: D72.829 - Elevated white blood cell count, unspecified (2) Hypotension: Qualified Codes: I95.9 - Hypotension, unspecified (3) DM type 1 (diabetes mellitus, type 1): Qualified Codes: E10.69 - Type 1 diabetes mellitus with other specified complication; E10.65 - Type 1 diabetes mellitus with hyperglycemia (4) DKA (diabetic ketoacidoses): Qualified Codes: E10.11 - Type 1 diabetes mellitus with ketoacidosis with coma (5) Acute renal failure: Qualified Codes: N17.9 - Acute kidney failure, unspecified Austin Thrasher MD Nov 28, 2017 17:21
--- NOTE | 2017-11-28 17:26 | RADRPT ---
EXAM DATE/TIME: 11/28/2017 17:00 [facility] COMPARISON: CHEST SINGLE AP, November 28, 2017, 14:48. INDICATIONS : Evaluate post central line placement. MEDICAL HISTORY : Diabetes mellitus type I. SURGICAL HISTORY : None. ENCOUNTER: Initial ACUITY: 1 day PAIN SCORE: Non-responsive. LOCATION: Bilateral chest FINDINGS: Right IJ central line with tip projecting in the region of the proximal SVC. Lungs are hyperexpanded. No significant pneumothorax. Cardiomediastinal contours are stable. Remainder of the exam is unchang ed. CONCLUSION: 1. Right IJ central line projecting in the region of the proximal SVC without pneumothorax. Aly Leigh MD on November 28, 2017 at 17:23 Board Certified Radiologist. This report was verified electronically.
[2017-11-28] MEDS ORDERED: SODIUM BICARBONATE 8.4% INJ 50 MEQ/50 ML SYR ONE (17:49)
[2017-11-28] MEDS ORDERED: PHENYLEPHRINE HCL 10 MG/ML VIAL ONE (17:51)
[2017-11-28] MEDS ORDERED: THIAMINE INJ 100 MG in SODIUM CHLORIDE 0.9% INJ 100 ML IV ONE (18:00)
[2017-11-28] MEDS: HEPARIN SODIUM - SQ 10,000 UNITS/ML VIAL SQ SCH (18:00)
[2017-11-28] MEDS: PHENYLEPHRINE INJ 160 MG in DEXTROSE 5% IN WATE 500 ML INJ 484 ML IV PRN ×2 (18:07)
[2017-11-28 19:30] LABS: INTERNATIONAL NORMALIZED RATIO 1.1 RATIO
--- NOTE | 2017-11-28 19:41 | RADRPT ---
EXAM DATE/TIME: 11/28/2017 18:56 [facility] COMPARISON: CHEST SINGLE AP, November 28, 2017, 14:48. CHEST SINGLE AP, November 28, 2017, 17:00. INDICATIONS : Recent central line placement. Evaluate for pneumothorax. MEDICAL HISTORY : None. SURGICAL HISTORY : None. ENCOUNTER: Initial ACUITY: 1 day PAIN SCORE: 0/10 LOCATION: Bilateral chest there are no confluent infiltrates or effusions. Tracheal calcifications are present. The heart size remains within normal limits. FINDINGS: A single AP supine portable view of the chest was obtained and demonstrates the right internal jugula r central venous line with tip projected over the superior vena cava. There is a small right apical p neumothorax measuring up to approximately 7 mm. CONCLUSION: Small right apical pneumothorax measuring up to approximately 7 mm. Shaquille Haley MD on November 28, 2017 at 19:35 Board Certified Radiologist. This report was verified electronically.
[2017-11-28 19:43] LABS: BICARBONATE 14.4 MEQ/L (21.0-32.0); BLOOD UREA NITROGEN 41 MG/DL (7-18); CALCIUM 7.7 MG/DL (8.5-10.1); CHLORIDE 116 MEQ/L (98-107); GLOMERULAR FILTRATION RATE 33 ML/MIN (>89); MAGNESIUM 2.2 MG/DL (1.5-2.5); PHOSPHORUS 1.9 MG/DL (2.5-4.9); SODIUM (NA) 148 MEQ/L (136-145); TROPONIN I 0.15 NG/ML (0.02-0.05)
[2017-11-28 19:45] LABS: GLUCOSE,RANDOM 462 MG/DL (74-106)
[2017-11-28 20:00] LABS: ACETAMINOPHEN 4.9 MCG/ML (10.0-30.0)
[2017-11-28] MEDS: POTASSIUM CHLOR 20 MEQ PREMIX 100 ML IV PRN ×2 (20:11→21:20)
[2017-11-28 20:16] LABS: CREATININE, RANDOM URINE 25.6 MG/DL
[2017-11-28] MEDS: ARTIFICIAL TEARS OPTH SOLN 15 ML BTL EACH EYE SCH (20:34)
[2017-11-28] MEDS: D5 NS IV @ 200 MLS/HR - Start after Glucose less than 250 IV SCH (20:38)
[2017-11-28] MEDS ORDERED: DEXTROSE 50% IN WATER 50 ML VIAL(D50) IV PUSH PRN (20:45)
[2017-11-28] MEDS: NS IV @ 250 MLS/HR IV SCH (20:45)
[2017-11-28] MEDS ORDERED: POTASSIUM CL 20 MEQ IV PREMIX 100 ML - PERIPHERAL - SUBSEQUENT K+ < 3.5 IV PRN (20:45)
[2017-11-28] MEDS ORDERED: POTASSIUM CL 20 MEQ IV PREMIX 100 ML - PERIPHERAL - for K+ 4.5 to 5 IV PRN (20:45)
[2017-11-28] MEDS ORDERED: POTASSIUM CL 20 MEQ IV PREMIX 100 ML - PERIPHERAL - for K+ 3.5 to 4.4 IV PRN (20:45)
[2017-11-28] MEDS ORDERED: SODIUM BICARBONATE 8.4% 100 MEQ IV PUSH PRN (20:45)
[2017-11-28] MEDS ORDERED: POTASSIUM CL 20 MEQ IV PREMIX 100 ML - CENTRAL LINE - for K+ 4.5 to 5 IV PRN (20:45)
[2017-11-28] MEDS ORDERED: POTASSIUM CL 20 MEQ IV PREMIX 100 ML - PERIPHERAL LINE - for K+ < 3.5 IV PRN (20:45)
[2017-11-28] MEDS ORDERED: POTASSIUM CL 40 MEQ IV PREMIX 100 ML - CENTRAL LINE - SUBSEQUENT K+ < 3.5 IV PRN (20:45)
[2017-11-28] MEDS ORDERED: SODIUM PHOSPHATE 15 MMOL/NS 100 ML IV PRN ×2 (20:45)
[2017-11-28] MEDS ORDERED: POTASSIUM CL 40 MEQ IV PREMIX 100 ML - CENTRAL LINE - for K+ < 3.5 IV PRN (20:45)
[2017-11-28] MEDS ORDERED: POTASSIUM CL 20 MEQ IV PREMIX 100 ML - CENTRAL LINE - for K+ 3.5 to 4.4 IV PRN (20:45)
[2017-11-28] MEDS ORDERED: SODIUM BICARBONATE 8.4% 50 MEQ IV PUSH PRN (20:45)
[2017-11-28] MEDS ORDERED: INSULIN HUMAN (NovoLIN) REGULAR Bolus IV PUSH ONE (20:45)
[2017-11-28] MEDS: DOCUSATE SODIUM 50 MG/SENNA 8.6 MG TAB PO SCH (21:00)
[2017-11-28] MEDS: SODIUM CHLORIDE 0.9% FLUSH 10 ML FLUSH IV FLUSH SCH (21:00)
[2017-11-28] MEDS: FLUTICASONE PROPIONATE 50 MCG/ACT 16 GM NASAL SPRAY EACH NARE SCH (21:00)
[2017-11-28] MEDS: MORPHINE SULFATE 4 MG/ML INJ IV PUSH PRN (21:45)
[2017-11-28 22:16] LABS: HEMOGLOBIN A1C 7.6 % (4.3-6.0)
--- NOTE | 2017-11-28 22:49 | RADRPT ---
EXAM DATE/TIME: 11/28/2017 22:28 [facility] COMPARISON: CHEST SINGLE AP, November 28, 2017, 18:56. INDICATIONS : Followup right apical pneumothorax. MEDICAL HISTORY : Diabetes mellitus type I. SURGICAL HISTORY : None. ENCOUNTER: Initial ACUITY: 1 day PAIN SCORE: Non-responsive. LOCATION: Bilateral chest FINDINGS: 2 AP portable supine views of the chest were obtained and again demonstrate a small right apical pneu mothorax without significant change. The heart and mediastinal structures are within normal limits. L ungs remain clear. The bony thorax is intact. There is a right-internal jugular central venous line a gain noted. The catheter has been withdrawn and the tip now lies at the T1 level. CONCLUSION: 1. Stable appearance of the small right apical pneumothorax. 2. The right internal jugular central venous line has been pulled back several centimeters. Shaquille Haley MD on November 28, 2017 at 22:45 Board Certified Radiologist. This report was verified electronically.
[2017-11-29] VITALS (66 sets, daily range): BP systolic 79–156; BP diastolic 46–75; PULSE 78–128; RESP 6–29; TEMP 97.2–99.1; O2SAT 94–100
[2017-11-29 01:13] LABS: HEMOGLOBIN 10.6 GM/DL (11.6-15.3); MEAN CELL VOLUME 96.4 FL (80.0-100.0); MEAN CORPUSCULAR HEMOGLOBIN 32.1 PG (27.0-34.0); MEAN CORPUSCULAR HGB CONC 33.2 % (32.0-36.0); MEAN PLATELET VOLUME 6.9 FL (7.0-11.0); PLATELET COUNT 250 TH/MM3 (150-450); RED BLOOD COUNT 3.32 MIL/MM3 (4.00-5.30); RED CELL DISTRIBUTION WIDTH 12.6 % (11.6-17.2); WHITE BLOOD COUNT 21.8 TH/MM3 (4.0-11.0)
[2017-11-29 01:24] LABS: CALCIUM 7.7 MG/DL (8.5-10.1)
[2017-11-29] MEDS: NS IV @ 250 MLS/HR IV SCH ×2 (01:28→04:45)
[2017-11-29] MEDS: POTASSIUM CHLOR 20 MEQ PREMIX 100 ML IV PRN ×2 (01:28→02:31)
[2017-11-29] MEDS: HEPARIN SODIUM - SQ 10,000 UNITS/ML VIAL SQ SCH (01:31)
[2017-11-29 01:32] LABS: BICARBONATE 22.2 MEQ/L (21.0-32.0); CREATININE 1.3 MG/DL (0.50-1.00); MAGNESIUM 2.1 MG/DL (1.5-2.5); PHOSPHORUS 0.6 MG/DL (2.5-4.9)
[2017-11-29] MEDS: D5 NS IV @ 200 MLS/HR - Start after Glucose less than 250 IV SCH ×2 (01:35→04:06)
[2017-11-29 01:39] LABS: TROPONIN I 0.81 NG/ML (0.02-0.05)
--- NOTE | 2017-11-29 03:29 | RADRPT ---
EXAM DATE/TIME: 11/29/2017 03:03 [facility] COMPARISON: CHEST SINGLE AP, November 28, 2017, 22:28. INDICATIONS : Follow-up right pneumothorax MEDICAL HISTORY : Diabetes mellitus type I. SURGICAL HISTORY : None. ENCOUNTER: Subsequent ACUITY: 1 day PAIN SCORE: Non-responsive. LOCATION: Right chest FINDINGS: A small right apical pneumothorax persists with about 8 mm separation of apical pleural layers. It ap pears to be developing infiltrate in the left lung base. Accounting for rotation, cardiomediastinal c ontours are grossly stable. Right central line descends to the SVC. CONCLUSION: Tiny right apical pneumothorax. Developing infiltrate in the left base Uziel Valentino MD on November 29, 2017 at 3:25 Board Certified Radiologist. This report was verified electronically.
[2017-11-29] MEDS ORDERED: CHLORHEXIDINE GLUCONATE 2 % 1 PACK (2 CLOTHS) TOP SCH (04:00)
[2017-11-29] MEDS: CHLORHEXIDINE GLUCONATE 2 % 1 PACK (2 CLOTHS) TOP SCH (04:00)
[2017-11-29] MEDS: RESP: ALBUTEROL 2.5 MG/IPRATROPIUM 0.5 MG NEB (SCH) INH ×3 (04:09→21:11)
[2017-11-29] MEDS: MORPHINE SULFATE 4 MG/ML INJ IV PUSH PRN (04:36)
--- NOTE | 2017-11-29 06:33 | HHI.CCPN ---
Subjective Remarks/Hospital Course This is a 51-year-old female. Date of admission 11/28/2017. Past medical history includes diabetes mellitus type 1 uncontrolled insulin- dependent with retinopathy on home insulin pump, hypertension, allergic rhinitis and chronic benzodiazepine use. She also has history of breast cancer on raloxifene she originally presented to [facility] ED During the workup, patient was noted to have a blood sugar of 808. Elevated acetone. Sodium 135. Potassium 6.0. Ferritin 2.1. Leukocytosis 25,000. Macrocytic anemia. UA negative for infectious etiology. She was bolused with 3 L of 0.9% NaCl IV fluid bolus. She is received 3 ampules of sodium bicarbonate and 1 g calcium gluconate. Chest x-ray post procedure revealed the CT scan of the head is read by the radiologist as ventriculomegaly but otherwise no acute findings. SUBJECTIVE: 11/29: Patient had nonrebreather off all night. PTX now 8 mm. Yells "Help me " "I don't know" Gap has closed, will transition back to SQ insulin if able to pass swallow. Replacing lytes. Objective Vital Signs Date Time Temp Pulse Resp B/P (MAP) Pulse Ox O2 Delivery O2 Flow Rate FiO2 11/29/17 06:04 84 9 115/60 (78) 98 11/29/17 04:12 97.2 11/29/17 04:09 21 11/28/17 22:30 Nasal Cannula 2.00 Intake and Output 11/29/17 11/29/17 11/30/17 08:00 16:00 00:00 Intake Total 0 ml Output Total 1100 ml Balance -1100 ml Result Diagram: 11/29/17 0106 11/29/17 0106 Other Results Microbiology Date/Time Source Procedure Growth Status 11/28/17 18:55 Blood Peripheral Aerobic Blood Culture Pending Received 11/28/17 18:55 Blood Peripheral Anaerobic Blood Culture Pending Received 11/28/17 15:28 Urine Catheterized Urine Urine Culture Pending Received Imaging Last Impressions Chest X-Ray 11/29/17 0300 Signed Impressions: Service Date/Time: Wednesday, November 29, 2017 03:03 - CONCLUSION: Tiny right apical pneumothorax. Developing infiltrate in the left base Uziel Valentino MD Head CT 11/28/17 0000 Signed Impressions: Service Date/Time: November 15:46 - CONCLUSION: 1. Ventriculomegaly suggesting central cerebral atrophy versus hydrocephalus. Clinical correlation is recommended. 2. No acute infarct, acute hemorrhage, midline shift or extra-axial fluid collections. Dev Christopher MD Objective Remarks GENERAL: 61-year-old female currently resting in bed yelling in emotional lability SKIN: Warm and dry. No rash HEAD: Atraumatic. Normocephalic. EYES: Pupils equal and round about 2 mm bilaterally reactive. No scleral icterus. No injection or drainage. ENT: No nasal bleeding or discharge. Mucous membranes pink and dry. NECK: Trachea midline. No JVD. CARDIOVASCULAR: Tachycardic, RR. S1, S3 no S4.. No murmur RESPIRATORY: Keep to be essentially clear. No wheezing GASTROINTESTINAL: Abdomen soft, non-tender, nondistended. Hyperactive bowel sounds appreciated MUSCULOSKELETAL: Extremities without lifting peripheral edema. No obvious deformities. NEUROLOGICAL: Arousable but falls asleep quickly. No obvious cranial nerve deficits. Motor grossly within normal limits. Five out of 5 muscle strength in the arms and legs. Normal speech. Urinary Catheter: Yes Assessment to: Continue Méndez insert reason: Prolonged Immobilization Vascular Central Line Catheter: Yes Assessment to: Continue Date of Insertion: Nov 28, 2017 Line: Central Venous Catheter Side: Right Location: Internal, Jugular A/P Assessment and Plan Neuro/Psych: Acute metabolic encephalopathy secondary to diabetic ketoacidosis Anxiety disorder NOS Benzodiazepine use Patient is written for propofol/fentanyl drips for sedation/analgesia while intubated Goal of RASS 0 Daily sedation vacation Acetaminophen 650 mg by tube every 6 hours as needed fever CT brain 11/28 revealed Ventriculomegaly suggesting central cerebral atrophy versus hydrocephalus. Clinical correlation is recommended. No acute infarct, acute hemorrhage, midline shift or extra-axial fluid collections. She is on amitriptyline 10 mg daily at home. This has been held UDS negative MRI brain ordered for today EEG ordered CV: Sinus tachycardia History of hypertension Shock Elevated troponin D5 normal saline at 250 cc an hour -transition to 1/2 NS with KCL at 100 cc/hr Check CVP Phenylephrine drip and norepinephrine drip to maintain mean arterial pressure greater than equal to 65. Currently at 30 mcg/min and 5 mcg/min respectively. Attempt to wean down the phenylephrine drip off Lactate pending 2D echocardiogram ordered. EKG pending Repeat troponin at 1328 Patient is on irbesartan 150 mg daily and this is been held in light of acute hypotension secondary to volume depletion Resp: Tobacco abuse/ongoing Iatrogenic PTX status post chest tube placement [facility] 18/450/08/23/34 Ventilator bundle Albuterol/ipratropium aerosols every 6 hours with albuterol aerosols every 2 hours as needed dyspnea Follow-up chest x-ray 0300 8 mm ptx. Resolution of pneumothorax with chest tube placement 11/29 Status post chest tube placement see documentation GI: Hypoalbuminemia Patient is currently n.p.o. Start tube feeding with Glucerna 1.5 goal 50 cc an hour Pantoprazole 40 mg IV daily for GI prophylaxis Docusate sodium/senna 1 tablet twice daily for bowel regimen : Méndez catheter has been placed for accurate I's and O's in a critically ill patient Endo: Insulin-dependent diabetes mellitus type 1 uncontrolled Diabetic ketoacidosis - resolved Patient is received 3 L normal saline in the ED along with 3 refills and bicarbonate, 1 ampule of calcium gluconate. Bolused with 10 U insulin and currently on drip at 2.1 units an hour BMP, magnesium phosphorus every 6 hours Beta hydroxybutyrate every 12 hours until cleared Insulin pump is currently been disconnected. According to sister Evelyn Gramajo, patient had received a new insulin pump within the past 48 hours. She has no history of DKA TSH 0.38 Transition off insulin gtt with Levemir 8 U BID and SSI Novulog medium protocol with accucheck every 4 hours maintain euglycemia Renal: Acute kidney injury with history of normal renal function likely secondary to severe dehydration Urine sodium, creatinine and eosinophils negative Renal ultrasound ordered. Not yet completed Serial BMP Heme: Leukocytosis Macrocytic anemia Monitor CBC daily. Follow trends ID: BC x2, UA (-) inf A/B pending Started on vancomycin and piperacillin/tazobactam day #1 Status post bronchoscopy with sample sent from left lower lobe today 11/29 MSK: PT eval and tx FEN: HyperNa+ HypoPhos- Replace electrolytes as clinically indicated per protocol 30 mmol KPhos x1 now. Recheck AM Access Right IJ CVL day #2 placed 11/28 ED. Will replace with left IJ CVL today 11/29 and discontinue right IJ CVL Right femoral arterial line day #1 placed 11/29 Prophylaxis -GI -pantoprazole -DVT -SCD/heparin subcu Critical Care: The total critical care time was 35 minutes. Time to perform other separately billable procedures was not included in the critical care time. Discussed clinical events with Evelyn Obrien/sister on phone in detail. Patient started new insulin pump 2 days ago and likely was nonfunctional prior to admission. Blood sugar on admission was greater than 808. Per sister, no history of any recent DKA. Patient is critically ill with altered mental status with MRI to further workup ventriculomegaly. EEG will be ordered as well due to acute delirium possibly not fully explained by DKA. Patient has been pancultured and started on broad-spectrum antibiotics. Care plan discussed and all questions answered. Pending EEG MRI brain and echocardiogram today. Austin Thrasher MD Nov 29, 2017 06:33
[2017-11-29] MEDS ORDERED: POTASSIUM CHLOR 40 MEQ PREMIX 100 ML IV PRN ×2 (07:15)
[2017-11-29] MEDS ORDERED: Vancomycin Consult Pharmacy 1 EA OTHER SCH (07:15)
[2017-11-29] MEDS ORDERED: POTASSIUM PHOSPHATE MONOBASIC 500 MG TAB PO PRN (07:15)
[2017-11-29] MEDS ORDERED: POTASSIUM PHOSPHATE MONOBASIC 500 MG TAB PO/TUBE PRN (07:15)
[2017-11-29] MEDS ORDERED: SODIUM PHOSPHATE INJ 30 MMOL in SODIUM CHLOR 0.9% 250 ML INJ 240 ML IV PRN (07:15)
[2017-11-29] MEDS ORDERED: MAGNESIUM OXIDE 400 MG TAB PO PRN (07:15)
[2017-11-29] MEDS ORDERED: MAGNESIUM SULFATE INJ 4 GM in SODIUM CHLORIDE 0.9% INJ 92 ML IV PRN (07:15)
[2017-11-29] MEDS ORDERED: DC previous DKA orders (HMC 1917) ONE (07:15)
[2017-11-29] MEDS ORDERED: GLUCAGON 1 MG/ML VIAL OTHER PRN (07:15)
[2017-11-29] MEDS ORDERED: MAGNESIUM SULFATE INJ 2 GM in SODIUM CHLORIDE 0.9% INJ 96 ML IV PRN (07:15)
[2017-11-29] MEDS ORDERED: DC Insulin drip 2 hrs post basal insulin dose ONE (07:15)
[2017-11-29] MEDS ORDERED: POTASSIUM CHLOR 20 MEQ PREMIX 100 ML IV PRN ×2 (07:15)
[2017-11-29] MEDS ORDERED: POTASSIUM CHLORIDE 25 MEQ EFFERVESCENT TAB PO PRN (07:15)
[2017-11-29] MEDS ORDERED: ETOMIDATE 20 MG/10 ML VIAL ONE (07:33)
[2017-11-29] MEDS ORDERED: ROCURONIUM INJ 50 MG/5 ML VIAL ONE (07:33)
[2017-11-29] MEDS ORDERED: DEXMEDETOMIDINE INJ 200 MCG in SODIUM CHLORIDE 0.9% INJ 50 ML IV PRN (08:00)
[2017-11-29] MEDS ORDERED: fentaNYL DRIP 250 ML IV PRN (08:00)
[2017-11-29] MEDS ORDERED: ROCURONIUM INJ 50 MG/5 ML VIAL IV ONE ×2 (08:00→12:00)
[2017-11-29] MEDS ORDERED: PROPOFOL 1000 MG/100 ML INJ 100 ML IV PRN (08:00)
[2017-11-29] MEDS ORDERED: ETOMIDATE 20 MG/10 ML VIAL IV PUSH ONE (08:00)
[2017-11-29] MEDS ORDERED: INSULIN ASPART SUPPLEMENTAL SCALE SQ SCH (08:00)
[2017-11-29] MEDS ORDERED: POTASSIUM PHOSPHATE INJ 30 MMOL in SODIUM CHLOR 0.9% 250 ML INJ 250 ML IV ONE (08:00)
[2017-11-29] MEDS ORDERED: EPINEPHrine HCL (1:10,000) 1 MG/10 ML SYRINGE ONE (08:16)
[2017-11-29] MEDS ORDERED: NOREPINEPHRINE-DEXTROSE DRIP 250 ML IV ONE (08:20)
[2017-11-29] MEDS: PIPERACIL-TAZO 4.5 GM PREMIX 100 ML IV SCH ×3 (09:00→22:13)
[2017-11-29] MEDS: DOCUSATE SODIUM 50 MG/SENNA 8.6 MG TAB PO SCH ×2 (09:00→21:00)
[2017-11-29] MEDS: ARTIFICIAL TEARS OPTH SOLN 15 ML BTL EACH EYE SCH ×3 (09:00→18:00)
[2017-11-29] MEDS: FLUTICASONE PROPIONATE 50 MCG/ACT 16 GM NASAL SPRAY EACH NARE SCH ×2 (09:00→21:00)
[2017-11-29] MEDS ORDERED: VANCOMYCIN 1,000 MG/NS 250 ML IV ONE ×2 (09:00)
[2017-11-29] MEDS: SODIUM CHLORIDE 0.9% FLUSH 10 ML FLUSH IV FLUSH SCH ×2 (09:00→22:12)
[2017-11-29] MEDS: THIAMINE INJ 100 MG in SODIUM CHLORIDE 0.9% INJ 100 ML IV SCH (09:00)
[2017-11-29] MEDS: MULTIVITAMIN TAB PO SCH (09:00)
[2017-11-29] MEDS ORDERED: PANTOPRAZOLE SODIUM 40 MG VIAL IV PUSH SCH (09:00)
--- NOTE | 2017-11-29 09:58 | PD.PROCEDR ---
Procedure Note Procedure DATE: 11/29/2017 PROCEDURE: Orotracheal intubation INDICATION: Acute respiratory failure secondary to acute encephalopathy/airway protection DETAILS OF PROCEDURE The patient was placed in optimal position and preoxygenated with 100% FiO2 via bag valve mask. At the start oxygen saturation was 100%. The patient was administered 20 milligrams etomidate IV and 50 milligrams rocuronium IV. I entered the oropharynx with a size 3 laryngoscope blade and obtained a grade 2 view of the airway. On single attempt a size 8.0 cuffed endotracheal tube was passed through the vocal cords. Correct tube location was confirmed with end tidal CO2 detector and by auscultating over bilateral lung petersen. The endotracheal tube was secured with adhesive tape at a depth of 23 cm at the lips. The patient was connected to the ventilator. The patient tolerated the procedure well without any apparent complications. Oxygen saturations were maintained greater than 95% all times. STAT chest x-ray revealed adequate positioning of ET tube. Austin Thrasher MD Nov 29, 2017 09:58
[2017-11-29] MEDS ORDERED: TERBUTALINE INJ 1 MG/ML AMP SQ PRN (10:00)
--- NOTE | 2017-11-29 10:02 | PD.PROCEDR ---
Procedure Note Procedure Date of procedure: 11/29/2017 Procedure: Right chest tube placement Indication: Iatrogenic pneumothorax Details of procedure: Informed consent was obtained from the sister Evelyn Obrien. The patient was laid supine. The lateral chest wall was cleaned with ChloraPrep twice. Regional sterile drapes were applied. 1% lidocaine was used for local anesthesia and injected into the subcutaneous and deep muscle tissues. Initially, insertion needle was placed parallel to the midaxillary to level of the palpable rib at nipple level. Initial insertion of needle with blood return and unable to pass guidewire. Next a 2 cm incision was made parallel to the rib in the midaxillary line at the level of the rib at the nipple level. The subcutaneous tissue was palpated above the rib. Forceps were introduced with blunt dissection and the pleura was then bluntly entered. The description in the parietal pleura was extended bluntly and the finger was inserted and swept carefully in all directions. A size 28 Swazi chest tube was inserted with a Karen clamp into the pleural cavity and directed toward the apex to a depth of 16. 0-0 silk was used to close the wound and to secure the chest tube. A sterile Vaseline gauze dressing was applied. The chest tube was connected to a Pleur-evac drainage system. There was no air leak. There was 0 output from the chest tube. Estimated blood loss: Minimal Complications: During initial attempt for pigtail catheter placement, unsuccessful placement of guidewire. Converted to a #28 Swazi chest tube. During conversion, blood from ET tube noted. Patient became hypotensive requiring norepinephrine drip added to current phenylephrine drip. Patient was Ambu bag 100% FiO2 by respiratory therapy. Chest tube was introduced as above. Stat chest x-ray revealed #28 Swazi chest tube. Reinflation of lung right chest Austin Thrasher MD Nov 29, 2017 10:02
--- NOTE | 2017-11-29 10:09 | PD.PROCEDR ---
Procedure Note Procedure DATE: 11/29/2017 Bronchoscopy/diagnostic and therapeutic INDICATION: Hemoptysis CONSENT Informed consent for procedure was obtained from sister Evelyn Obrien. DESCRIPTION OF THE PROCEDURE The patient was placed in supine position. Patient was sedated on ventilator on propofol 10 mg/kg/min. Received 10 cc propofol and 50 mg rocuronium. [facility] 16 /450/1/5/100. I enter the 8.0 ET tube with flexible bronchoscopy. The kera was sharp. Blood was noted at the right mainstem and left mainstem bronchus. I evaluated the right upper, middle and lower lobes. These were suctioned with copious amounts of saline. Mucosa was normal. No signs of masses or active bleeding. I then entered the left main bronchus. The lingula/upper lobe and lower lobes were evaluated. These were suctioned with copious amounts saline for blood. No masses. Mucosa was normal. I did send samples from from [employer] [facility] trap from left lower lobe. I withdrew the flexible bronchoscopy. Saturations remained above 100% at all times ESTIMATED BLOOD LOSS: Minimal COMPLICATIONS: No apparent complications. STAT chest x-ray pending at time of dictation Austin Thrasher MD Nov 29, 2017 10:09
--- NOTE | 2017-11-29 10:14 | RADRPT ---
EXAM DATE/TIME: 11/29/2017 08:51 [facility] COMPARISON: CHEST SINGLE AP, November 29, 2017, 3:03. INDICATIONS : Post new central line, right chest tube. MEDICAL HISTORY : Diabetes mellitus type I. SURGICAL HISTORY : None. ENCOUNTER: Subsequent ACUITY: 2 days PAIN SCORE: Non-responsive. LOCATION: chest FINDINGS: ETT at the level of the clavicles. Right IJ central line with tip in the proximal SVC. Right chest tu be in the upper hemithorax. Less prominent trace right apical pneumothorax. Right upper lung zone par enchymal opacity likely reflects pulmonary contusion. Cardiomediastinal contours are within normal li mits remainder of the exam is unchanged. CONCLUSION: 1. ETT in good position. 2. Right IJ central line in good position. 3. Right chest tube in the upper hemithorax with less prominent trace right apical pneumothorax. Aly Leigh MD on November 29, 2017 at 9:28 Board Certified Radiologist. This report was verified electronically.
--- NOTE | 2017-11-29 10:16 | RADRPT ---
EXAM DATE/TIME: 11/29/2017 09:51 [facility] COMPARISON: CHEST SINGLE AP, November 29, 2017, 3:03. CHEST SINGLE AP, November 29, 2017, 8:51. INDICATIONS : Post bronchoscopy. MEDICAL HISTORY : Diabetes mellitus type II. SURGICAL HISTORY : None. ENCOUNTER: Subsequent ACUITY: 2 days PAIN SCORE: Non-responsive. LOCATION: chest FINDINGS: Sestamibi position the right. Mild peribronchial thickening. No pneumothorax. The heart and pulmona ry vascularity are normal. CONCLUSION: Chest tube on the right without pneumothorax. Ousmane Bird MD FACR on November 29, 2017 at 10:12 Board Certified Radiologist. This report was verified electronically.
[2017-11-29] MEDS: CHLORHEXIDINE 0.12% (ORAL KIT) 15 ML CUP MT SCH ×2 (11:00→20:00)
--- NOTE | 2017-11-29 11:04 | PD.PROCEDR ---
Central Line Procedure REASON FOR PROCEDURE Central venous access PROCEDURE PERFORMED Central line placement: Left IJ CVL CONSENT Informed consent for procedure was obtained sister Evelyn Obrien. The risks and benefits of the procedure were discussed to include but limited to bleeding , clot formation, infection, and even . ANESTHESIA Local injection of 1% Lidocaine DESCRIPTION OF THE PROCEDURE The patient was placed in supine, mild Trendelenburg position. The area was exposed and cleansed with ChloraPrep, times two. Large sterile drape was used to cover the patient, with the site exposed, under sterile conditions including cap, face mask, sterile gown, and sterile gloves. On single attempt, the introducer needle was inserted with negative pressure in syringe and venous flash was obtained. The guide wire was then advanced without any restriction and the needle was removed. The dilator was used without any complications. Using Seldinger technique the triple lumen antibiotic coated catheter was advanced over the guide wire to a depth of 20 centimeters. The guide wire was removed. All ports were aspirated with dark venous blood return and flushed easily with sterile saline. All ports were capped. Antibiotic disc was placed around central line at puncture site. The central line was secured to the skin with two interrupted 2.0 silk sutures. The area was bandaged with sterile see- through central line bandage. RADIOLOGICAL DATA Ultrasound guidance was used to locate left internal jugular vein. Doppler/ color flow was used to confirm venous flow. COMPLICATIONS: No apparent complications ESTIMATED BLOOD LOSS: Less than 1 cc. Austin Thrasher MD Nov 29, 2017 11:03
[2017-11-29] MEDS ORDERED: SODIUM CHLORIDE 0.9% FLUSH 10 ML FLUSH IV FLUSH PRN (11:15)
--- NOTE | 2017-11-29 11:21 | RADRPT ---
EXAM DATE/TIME: 11/29/2017 11:03 [facility] COMPARISON: CHEST SINGLE AP, November 29, 2017, 8:51. CHEST SINGLE AP, November 29, 2017, 3:03. CHEST SINGLE AP, Apri 2017, 22:28. CHEST SINGLE AP, November 28, 2017, 18:56. CHEST SINGLE AP, November 29, 2017, 9:51. INDICATIONS : Post left central line placement MEDICAL HISTORY : Diabetes mellitus type II. SURGICAL HISTORY : None. ENCOUNTER: Subsequent ACUITY: 1 day PAIN SCORE: Non-responsive. LOCATION: Left chest FINDINGS: Right chest tube remains. The heart and pulmonary vascularity are normal. Central line entering from the left IJ approach tip in the SVC. Osseous structures are intact. CONCLUSION: Line in good position.. Ousmane Bird MD FACR on November 29, 2017 at 11:16 Board Certified Radiologist. This report was verified electronically.
[2017-11-29] MEDS ORDERED: ASPIRIN 81 MG CHEW TAB CHEW ONE (12:00)
[2017-11-29] MEDS: INSULIN DETEMIR 100 UNITS/ML VIAL SQ SCH ×2 (12:30→22:11)
[2017-11-29 13:22] LABS: CALCIUM 7.2 MG/DL (8.5-10.1)
[2017-11-29 13:23] LABS: CREATININE 0.96 MG/DL (0.50-1.00)
[2017-11-29 13:35] LABS: CALCIUM-PROTEIN CORRECTED 8.4 MG/DL (8.5-10.1); TOTAL PROTEIN 4.9 GM/DL (6.4-8.2)
[2017-11-29 13:36] LABS: PHOSPHORUS 1.3 MG/DL (2.5-4.9)
[2017-11-29 13:38] LABS: TROPONIN I 4.1 NG/ML (0.02-0.05)
[2017-11-29] MEDS: INSULIN ASPART SUPPLEMENTAL SCALE SQ SCH ×3 (14:51→22:12)
--- NOTE | 2017-11-29 14:59 | RADRPT ---
EXAM DATE/TIME: 11/29/2017 13:27 [facility] COMPARISON: CT BRAIN W/O CONTRAST, November 28, 2017, 15:46. INDICATIONS : Altered mental status. MEDICAL HISTORY : Diabetes mellitus type 1. SURGICAL HISTORY : Cataract, insulin pump. ENCOUNTER: Initial ACUITY: 1 day PAIN SCORE: 0/10 LOCATION: cranial TECHNIQUE: Multiplanar, multisequence MRI of the brain was performed without contrast. FINDINGS: CEREBRUM: Mild cerebral atrophy. The ventricles are diffusely prominent given the degree of brain atrophy. No evidence of midline shift, mass lesion, hemorrhage or acute infarction. No extraaxial fluid collecti ons are seen. The pituitary gland and suprasellar cistern are normal in configuration. WHITE MATTER: Mild/moderate periventricular and deep white matter T2 prolongation. POSTERIOR FOSSA: The cerebellum and brainstem are intact. The 4th ventricle is midline. The cerebellopontine angle is unremarkable. The cerebellar tonsils are normal in position. DIFFUSION IMAGING: No focal areas of restricted diffusion are seen. No evidence of acute infarction. EXTRACRANIAL: The visualized portions of the orbits and paranasal sinuses are unremarkable. CONCLUSION: 1. Mild diffuse ventriculomegaly. Clinical correlation for normal pressure hydrocephalus is recommend ed. 2. [id number] periventricular small vessel ischemic white matter demyelination, out of proporti on for age. Aly Leigh MD on November 29, 2017 at 14:53 Board Certified Radiologist. This report was verified electronically.
--- NOTE | 2017-11-29 15:19 | RADRPT ---
EXAM DATE/TIME: 11/29/2017 13:16 [facility] COMPARISON: No previous studies available for comparison. INDICATIONS : Increased lab values. MEDICAL HISTORY : Diabetes. Anxiety. SURGICAL HISTORY : Cataract surgery. Bunionectomy. ENCOUNTER: Initial ACUITY: 1 day PAIN SCORE: 0/10 LOCATION: Bilateral flank MEASUREMENTS: RIGHT KIDNEY: 10.5 x 4.0 x 5.1 cm LEFT KIDNEY: 10.6 x 5.5 x 5.0 cm FINDINGS: RIGHT KIDNEY: Renal cortex is normal in thickness and echotexture. No hydronephrosis, stone, or mass. LEFT KIDNEY: Renal cortex is normal in thickness and echotexture. No hydronephrosis, stone, or mass. BLADDER: Decompressed with a Méndez catheter. MISCELLANEOUS: Also noted is marked gallbladder wall thickening measuring 1.1 cm in thickness with some pericholecys tic fluid. CONCLUSION: 1. Both kidneys are sonographically normal without hydronephrosis or nephrolithiasis. 2. Very abnormal appearance of the gallbladder with mural thickening and minimal pericholecystic flui d Dani Titus MD on November 29, 2017 at 14:53 Board Certified Radiologist. This report was verified electronically.
--- NOTE | 2017-11-29 16:19 | MB ---
cc: Karla Ham MD DATE: 11/29/2017 REASON FOR CONSULTATION: Elevated troponin. HISTORY OF PRESENT ILLNESS: Ms. Davis is a 61-year-old female who was admitted to the emergency room with DKA and altered mental status. She is currently intubated and the history is essentially per the records. ALLERGIES: NO KNOWN DRUG ALLERGIES. CURRENT MEDICATIONS: Per the record. PAST MEDICAL HISTORY: Includes type 1 diabetes uncontrolled, breast cancer, smoker, chronic benzodiazepine use. FAMILY HISTORY: Positive for CAD. SOCIAL HISTORY: The patient does smoke and drinks 1-2 beers a day. REVIEW OF SYSTEMS: Unable. PHYSICAL EXAMINATION: VITAL SIGNS: 110, 122/60, 98%. GENERAL: She is a well-appearing female, who is in no apparent distress. NECK: Free from JVD. LUNGS: Clear to auscultation. CARDIOVASCULAR: She has a normal S1 and S2. No murmurs, rubs or gallops were appreciated. ABDOMEN: Soft. EXTREMITIES: Free from edema. LABORATORY DATA: Significant for a white count of 21. Her potassium is 3.2 and creatinine is 0.96, down from 2.1. Her troponin today was 4.1. Telemetry shows sinus tachycardia. EKG shows sinus tachycardia with nonspecific ST-T wave changes. IMPRESSION: 1. Elevated troponin. The patient has had a significant elevation, most consistent with a non-ST elevation MT. I suspect it is secondary to her renal insufficiency with a creatinine of 2 on arrival. She did have transient hypertension into the 170s with a heart rate in the 120s. This was during the same time when she was quite hypoxic and was being intubated. She also had difficulties with a pneumothorax. In any case, she is not a revascularization candidate at this time. RECOMMENDATIONS: I would continue with conservative medical management. I do agree with echocardiogram. She is not a beta demetra candidate secondary to her hypotension as she is on multiple pressors. I do agree also with the aspirin. I will check fasting lipids for consideration of a statin. MD JARETT Chawla/SB , 03:34 PM , 04:19 PM
--- NOTE | 2017-11-29 17:05 | ECHRPT ---
Indication: CP CONCLUSIONS Left ventricular size is upper normal or mildly increased. Wall thickness is normal. There appears to be severe septal hypokinesis. Ejection fraction is difficult to estimated, possibly 40%. Mild mitral valve regurgitation. There is mild tricuspid valve regurgitation. The estimated pulmonary arterial pressure is 43.mmHg. BP: 115 / 60 HR: 99 Rhythm: Sinus MEASUREMENTS (Male / Female) Normal Values Technical Quality:Fair 2D ECHO LV Diastolic Diameter PLAX 4.0 cm 4.2 - 5.9 / 3.9 - 5.3 cm LV Systolic Diameter PLAX 3.6 cm IVS Diastolic Thickness 0.7 cm 0.6 - 1.0 / 0.6 - 0.9 cm LVPW Diastolic Thickness 0.7 cm 0.6 - 1.0 / 0.6 - 0.9 cm LV Relative Wall Thickness 0.4 RV Internal Dim ED PLAX 2.0 cm LVOT Diameter 1.7 cm Aortic Root Diameter 2.9 cm LA Systolic Diameter LX 2.5 cm 3.0 - 4.0 / 2.7 - 3.8 cm M-MODE AV Cusp Separation MM 1.6 cm DOPPLER AV Peak Velocity 110.0 cm/s AV Peak Gradient 4.8 mmHg AV Mean Gradient 2.0 mmHg AV Velocity Time Integral 17.8 cm LVOT Peak Velocity 87.2 cm/s LVOT Peak Gradient 3.0 mmHg LVOT Velocity Time Integral 14.9 cm AV Area Cont Eq vti 1.9 cm AV Area Cont Eq pk 1.8 cm Mitral E Point Velocity 87.6 cm/s Mitral A Point Velocity 58.8 cm/s Mitral E to A Ratio 1.5 TR Peak Velocity 288.0 cm/s TR Peak Gradient 33.2 mmHg Right Atrial Pressure 10.0 mmHg Pulmonary Artery Systolic Pressu 43.2 mmHg Right Ventricular Systolic Press 43.2 mmHg PV Peak Velocity 48.9 cm/s PV Peak Gradient 1.0 mmHg FINDINGS LEFT VENTRICLE Left ventricular size is upper normal or mildly increased. Wall thickness is normal. There appears to be severe septal hypokinesis. Ejection fraction is difficult to estimated, possibly 40%. RIGHT VENTRICLE Normal right ventricular size and systolic function. LEFT ATRIUM The left atrial size is upper limits of normal. RIGHT ATRIUM The right atrial size is normal. ATRIAL SEPTUM The interatrial septum not well visualized. AORTA The aortic root and proximal ascending aorta are not well visualized. MITRAL VALVE Mild mitral valve regurgitation. AORTIC VALVE Trileaflet aortic valve. No aortic valve stenosis or regurgitation. TRICUSPID VALVE There is mild tricuspid valve regurgitation. The estimated pulmonary arterial pressure is 43.mmHg. PULMONARY VALVE The pulmonary valve is not well visualized. VESSELS The inferior vena cava is normal in size. PERICARDIUM No pericardial effusion. Pedrito Jimenes MD (Electronically Signed) Final Date:29 November 2017 17:05
[2017-11-29 17:57] LABS: CHOLESTEROL/ HDL RATIO 1.25 RATIO; HDL CHOLESTEROL 82.3 MG/DL (40.0-60.0)
[2017-11-29 17:59] LABS: BICARBONATE 21.2 MEQ/L (21.0-32.0); CREATININE 0.91 MG/DL (0.50-1.00); MAGNESIUM 1.9 MG/DL (1.5-2.5); PHOSPHORUS 1.8 MG/DL (2.5-4.9)
[2017-11-29 18:16] LABS: CALCIUM-PROTEIN CORRECTED 8.2 MG/DL (8.5-10.1); TOTAL PROTEIN 4.8 GM/DL (6.4-8.2)
[2017-11-29 18:18] LABS: TROPONIN I 6.91 NG/ML (0.02-0.05)
--- NOTE | 2017-11-29 19:58 | EKG ---
Date Performed: 11/28/2017 Time Performed: 15:09:20 PTAGE: 61 years EKG: SINUS TACHYCARDIA WITH FIRST DEGREE AV BLOCK POSSIBLE LEFT ATRIAL ENLARGEMENT MARKED RIGHT AXIS DEVIATION ABNORMAL ECG PREVIOUS TRACING : 05/06/2017 11.07 DOCTOR: Juan M Sharma Interpretating Date/Time 11/29/2017 19:57:34
--- NOTE | 2017-11-29 20:02 | EKG ---
Date Performed: 11/28/2017 Time Performed: 18:49:20 PTAGE: 61 years EKG: SINUS TACHYCARDIA ABNORMAL RHYTHM ECG Since the PREVIOUS TRACING , no significant change noted PREVIOUS TRACIN11/28/2017 15.09 DOCTOR: Juan M Sharma Interpretating Date/Time 11/29/2017 20:00:44
[2017-11-29] MEDS: ATORVASTATIN 10 MG TAB PO SCH (21:00)
[2017-11-29] MEDS: PANTOPRAZOLE SODIUM 40 MG VIAL IV PUSH SCH (22:12)
[2017-11-29] MEDS: SODIUM CHLOR 0.45% 1000 ML INJ 1,000 ML IV SCH (22:15)
[2017-11-29] MEDS: PHENYLEPHRINE INJ 160 MG in DEXTROSE 5% IN WATE 500 ML INJ 484 ML IV PRN ×2 (22:55)
[2017-11-29] MEDS: NOREPINEPHRINE INJ 4 MG in SODIUM CHLOR 0.9% 250 ML INJ 246 ML IV PRN (23:52)
[2017-11-30] VITALS (48 sets, daily range): BP systolic 85–126; BP diastolic 50–82; PULSE 82–112; RESP 13–36; TEMP 98.6–100.7; O2SAT 91–100
[2017-11-30] MEDS: RESP: ALBUTEROL 2.5 MG/IPRATROPIUM 0.5 MG NEB (SCH) INH ×4 (03:14→21:05)
[2017-11-30] MEDS: PIPERACIL-TAZO 4.5 GM PREMIX 100 ML IV SCH ×4 (03:38→20:08)
[2017-11-30] MEDS: CHLORHEXIDINE GLUCONATE 2 % 1 PACK (2 CLOTHS) TOP SCH (03:46)
[2017-11-30] MEDS: INSULIN ASPART SUPPLEMENTAL SCALE SQ SCH ×6 (04:00→20:06)
[2017-11-30 05:15] LABS: AUTOMATED NEUTROPHIL # 13.8 TH/MM3 (1.8-7.7); BASOPHIL % 0.1 % (0.0-2.0); EOSINOPHIL % 0.1 % (0.0-4.0); HEMATOCRIT 28.4 % (35.0-46.0); HEMOGLOBIN 9.5 GM/DL (11.6-15.3); LYMPHOCYTE # 1.4 TH/MM3 (1.0-4.8); MEAN CELL VOLUME 95.5 FL (80.0-100.0); MEAN CORPUSCULAR HEMOGLOBIN 31.8 PG (27.0-34.0); MEAN CORPUSCULAR HGB CONC 33.3 % (32.0-36.0); MEAN PLATELET VOLUME 6.9 FL (7.0-11.0); MONO % 2.3 % (0.0-8.0); MONOCYTE # 0.4 TH/MM3 (0-0.9); NEUT % 88.5 % (16.0-70.0); PLATELET COUNT 177 TH/MM3 (150-450); RED BLOOD COUNT 2.97 MIL/MM3 (4.00-5.30); RED CELL DISTRIBUTION WIDTH 13.2 % (11.6-17.2); WHITE BLOOD COUNT 15.6 TH/MM3 (4.0-11.0)
[2017-11-30 05:22] LABS: CHLORIDE 119 MEQ/L (98-107); SODIUM (NA) 148 MEQ/L (136-145)
[2017-11-30 05:29] LABS: ALBUMIN 2.4 GM/DL (3.4-5.0); BICARBONATE 22.5 MEQ/L (21.0-32.0); BLOOD UREA NITROGEN 14 MG/DL (7-18); CALCIUM 6.7 MG/DL (8.5-10.1); GLUCOSE,RANDOM 80 MG/DL (74-106); MAGNESIUM 1.7 MG/DL (1.5-2.5)
[2017-11-30 05:32] LABS: ALT (GPT) 47 U/L (10-53); AST (GOT) 88 U/L (15-37); CALCIUM-PROTEIN CORRECTED 7.9 MG/DL (8.5-10.1); CREATININE 0.65 MG/DL (0.50-1.00); GLOMERULAR FILTRATION RATE 92 ML/MIN (>89); PHOSPHORUS 1.1 MG/DL (2.5-4.9); TOTAL BILIRUBIN ADULT 0.6 MG/DL (0.2-1.0); TOTAL PROTEIN 4.8 GM/DL (6.4-8.2)
[2017-11-30 05:35] LABS: ALKALINE PHOSPHATASE 51 U/L (45-117)
[2017-11-30] MEDS: NOREPINEPHRINE INJ 4 MG in SODIUM CHLOR 0.9% 250 ML INJ 246 ML IV PRN ×3 (05:35→21:56)
[2017-11-30] MEDS ORDERED: levETIRAcetam INJ 100 ML IV ONE (06:30)
[2017-11-30] MEDS: POTASSIUM PHOSPHATE INJ 30 MMOL in SODIUM CHLOR 0.9% 250 ML INJ 250 ML IV PRN (06:43)
--- NOTE | 2017-11-30 06:44 | HHI.CCPN ---
Subjective Remarks/Hospital Course This is a 51-year-old female. Date of admission 11/28/2017. Past medical history includes diabetes mellitus type 1 uncontrolled insulin- dependent with retinopathy on home insulin pump, hypertension, allergic rhinitis and chronic benzodiazepine use. She also has history of breast cancer on raloxifene she originally presented to [facility] ED During the workup, patient was noted to have a blood sugar of 808. Elevated acetone. Sodium 135. Potassium 6.0. Ferritin 2.1. Leukocytosis 25,000. Macrocytic anemia. UA negative for infectious etiology. She was bolused with 3 L of 0.9% NaCl IV fluid bolus. She is received 3 ampules of sodium bicarbonate and 1 g calcium gluconate. Chest x-ray post procedure revealed the CT scan of the head is read by the radiologist as ventriculomegaly but otherwise no acute findings. 11/29: Patient had nonrebreather off all night. PTX now 8 mm. Yells "Help me " "I don't know" Gap has closed, will transition back to SQ insulin if able to pass swallow. Replacing lytes. SUBJECTIVE: 11/30: Patient opens eyes to voice. Leftward gaze. Frequent blinking. Withdraws to stimulation bilateral lower extremities. T-max 99.5. Remains on norepinephrine and phenylephrine drips. MRI brain revealed ventriculomegaly. No acute signs of CVA. Echocardiogram EF 40%. Objective Vital Signs Date Time Temp Pulse Resp B/P (MAP) Pulse Ox O2 Delivery O2 Flow Rate FiO2 11/30/17 06:22 35 11/30/17 06:15 98 16 102/52 (69) 100 11/30/17 05:30 99.5 11/30/17 00:00 Mechanical Ventilator 11/29/17 07:00 2.00 Intake and Output 11/30/17 11/30/17 12/01/17 08:00 16:00 00:00 Intake Total 41 ml Output Total 850 ml Balance -809 ml Result Diagram: 11/30/17 0455 11/30/17 0455 Other Results Microbiology Date/Time Source Procedure Growth Status 11/28/17 18:55 Blood Peripheral Aerobic Blood Culture - Preliminary NO GROWTH IN 1 DAY Resulted 11/28/17 18:55 Blood Peripheral Anaerobic Blood Culture - Preliminary NO GROWTH IN 1 DAY Resulted 11/29/17 20:00 Nasal Aspirate Influenza Types A,B Antigen (KELY) - Final NEGATIVE FOR FLU A AND B ANTIGEN.... Complete 11/28/17 15:28 Urine Catheterized Urine Urine Culture - Preliminary NO GROWTH IN 24 HOURS. Resulted Imaging Last Impressions Renal Ultrasound 11/29/17 1656 Signed Impressions: Service Date/Time: Wednesday, November 29, 2017 13:16 - CONCLUSION: 1. Both kidneys are sonographically normal without hydronephrosis or nephrolithiasis. 2. Very abnormal appearance of the gallbladder with mural thickening and minimal pericholecystic fluid Dani Titus MD Chest X-Ray 11/29/17 1102 Signed Impressions: Service Date/Time: Wednesday, November 29, 2017 11:03 - CONCLUSION: Line in good position.. Ousmane Bird MD FACR Brain MRI 11/29/17 0000 Signed Impressions: Service Date/Time: Wednesday, November 29, 2017 13:27 - CONCLUSION: 1. Mild diffuse ventriculomegaly. Clinical correlation for normal pressure hydrocephalus is recommended. 2. [id number] periventricular small vessel ischemic white matter demyelination, out of proportion for age. Aly Leigh MD Head CT 11/28/17 0000 Signed Impressions: Service Date/Time: November 15:46 - CONCLUSION: 1. Ventriculomegaly suggesting central cerebral atrophy versus hydrocephalus. Clinical correlation is recommended. 2. No acute infarct, acute hemorrhage, midline shift or extra-axial fluid collections. Dev Christopher MD Objective Remarks GENERAL: 61-year-old female critically ill currently orotracheally intubated SKIN: Warm and dry. No rash HEAD: Atraumatic. Normocephalic. EYES: Pupils equal and round about 2 mm bilaterally reactive. No scleral icterus. No injection or drainage. ENT: No nasal bleeding or discharge. Mucous membranes pink and moist NECK: Trachea midline. No JVD. Left IJ CVL is clean dry and intact CARDIOVASCULAR: RRR. S1, S2 no S4.. No murmur RESPIRATORY: Essentially clear to auscultation bilaterally without wheezes rales or rhonchi. Right chest tube with minimal sanguinous output -20 cm H2O GASTROINTESTINAL: Abdomen soft, non-tender, nondistended. Hyperactive bowel sounds appreciated MUSCULOSKELETAL: Extremities with trace upper and lower extremity edema. NEUROLOGICAL: Positive cough and gag. Opens eyes and blinks. Leftward gaze. Upward toes. Withdraws bilateral lower extremities. Urinary Catheter: Yes Assessment to: Continue Méndez insert reason: Prolonged Immobilization Vascular Central Line Catheter: Yes Assessment to: Continue Date of Insertion: Nov 28, 2017 Line: Central Venous Catheter Side: Left Location: Internal, Jugular A/P Assessment and Plan Neuro/Psych: Acute encephalopathy secondary to diabetic ketoacidosis Anxiety disorder NOS Benzodiazepine use Patient is written for propofol/fentanyl drips for sedation/analgesia while intubated. Currently on 5 mcg/kg/min and 50 mcg/min respectively Goal of RASS 0 Daily sedation vacation Acetaminophen 650 mg by tube every 6 hours as needed fever CT brain 11/28 revealed Ventriculomegaly suggesting central cerebral atrophy versus hydrocephalus. Clinical correlation is recommended. No acute infarct, acute hemorrhage, midline shift or extra-axial fluid collections. She is on amitriptyline 10 mg daily at home. This has been held UDS negative MRI brain 11/29 revealed mild to moderate ventriculomegaly. EEG ordered 11/29. Currently undergoing currently Started on levetiracetam 500 mg IV every 12 hours after 1 g bolus Neurology consultation CV: History of hypertension Shock Elevated troponin Acute systolic heart failure ejection fraction 40% Currently on 1/2 NS at 100 cc/hr CVP - 9 Phenylephrine drip and norepinephrine drip to maintain mean arterial pressure greater than equal to 65. Currently at 100 mcg/min and 9 mcg/min respectively. Attempt to wean down the phenylephrine drip off Cardiology/Dr. Ham following Started on atorvastatin 10 mg by tube daily Continue aspirin 81 mg by tube daily 2D echocardiogram revealed EF around 40%. LV increased size. Septal hypokinesis. Repeat troponin the same decreased to 2.8 Patient is on irbesartan 150 mg daily at home and this is been held in light of acute hypotension Resp: Acute respiratory failure Hemoptysis Tobacco abuse/ongoing Iatrogenic PTX status post chest tube placement [facility] 16/450/08/23/34 Ventilator bundle Albuterol/ipratropium aerosols every 6 hours with albuterol aerosols every 2 hours as needed dyspnea Chest x-ray 11/30 reveals resolved pneumothorax. Chest tube in place. Status post chest tube placement see documentation Status post bronchoscopy 11/29. No active bleeding. Small residual hemoptysis still noted some ET tube GI: Hypoalbuminemia Glucerna 1.5 goal 50 cc an hour Pantoprazole 40 mg IV daily for GI prophylaxis Docusate sodium/senna 1 tablet twice daily for bowel regimen : Méndez catheter has been placed for accurate I's and O's in a critically ill patient Endo: Insulin-dependent diabetes mellitus type 1 uncontrolled Diabetic ketoacidosis - resolved Originally, patient received 3 L normal saline in the ED along with 3 refills and bicarbonate, 1 ampule of calcium gluconate. Beta hydroxybutyrate cleared Insulin pump was disconnected 11/28. According to sister Evelyn Obrien, patient had received a new insulin pump within the past 48 hours. She has no history of DKA in the past to her knowledge TSH 0.38 Holding insulin detemir 8 U BID DUE to hypoglycemia. Continue SSI Novulog medium protocol with accucheck every 4 hours maintain euglycemia Renal: Acute kidney injury with history of normal renal function likely secondary to severe dehydration Urine eosinophils negative Renal ultrasound revealed no medical renal disease. Serial BMP Heme: Leukocytosis Macrocytic anemia Monitor CBC daily. Follow trends ID: BC x2, UA (-) inf A/B negative Started on vancomycin and piperacillin/tazobactam day #2 Status post bronchoscopy with sample sent from left lower lobe today 11/29 reveals no growth today MSK: PT eval and tx FEN: HyperNa+ HypoPhos- Replace electrolytes as clinically indicated per protocol 30 mmol KPhos x1 now. Recheck 16 Access Right IJ CVL day #2 placed 4 ED. Discontinued 4 this patient partially pulled out with StatLock in place. Will replace with left IJ CVL today 11/29 to current day #2 Right femoral arterial line day #2 placed 11/29 Prophylaxis -GI -pantoprazole -DVT -SCD/heparin subcu Critical Care: The total critical care time was 35 minutes. Time to perform other separately billable procedures was not included in the critical care time. Updated sister Evelyn Obrien at [phone]. She was concerned about the blood sugars. Stated that they were actually a little bit low at 80s. Will discontinue insulin detemir and keep on sliding scale insulin in the interim. Updated her on new findings of seizure activity on EEG with consultation neurology and new medications introduced including levetiracetam and midazolam drip. Discussed with her elevated troponin and seen by Dr. Gilliam. Patient remains and is critically ill in the ICU. She stated will call this afternoon for an update. Patient does have a mother who was involved. Austin Thrasher MD Nov 30, 2017 06:44
--- NOTE | 2017-11-30 06:45 | RADRPT ---
EXAM DATE/TIME: 11/30/2017 06:07 [place] COMPARISON: CHEST SINGLE AP, November 29, 2017, 11:03. INDICATIONS : Shortness of breath. MEDICAL HISTORY : Diabetes mellitus type I. SURGICAL HISTORY : Cataract, insulin pump ENCOUNTER: Subsequent ACUITY: 2 days PAIN SCORE: Non-responsive. LOCATION: Bilateral chest FINDINGS: The cardiac silhouette is normal in transverse diameter. There is patchy alveolar disease bilaterally compatible with edema or pneumonia. The findings have worsened when compared with the prior examinat ion. Support lines and tubes are in satisfactory position. There is left lower lobe atelectasis versu s pneumonia. CONCLUSION: 1. Worsening bilateral edema versus pneumonia. 2. Lower lobe atelectasis. Patrick Hamm MD on November 30, 2017 at 6:43 Board Certified Radiologist. This report was verified electronically.
[2017-11-30] MEDS ORDERED: MIDAZOLAM HCL 5 MG/ML VIAL (1 ML) ONE (06:54)
[2017-11-30] MEDS ORDERED: MIDAZOLAM HCL 2 MG/2 ML VIAL IV PUSH ONE (07:00)
[2017-11-30] MEDS ORDERED: MIDAZOLAM 100 MG/100 ML INJ 100 ML IV PRN ×2 (07:00→17:15)
[2017-11-30] MEDS: DEXTROSE 50% IN WATER 50 ML VIAL(D50) IV PUSH PRN (07:11)
[2017-11-30] MEDS: MAGNESIUM SULFATE 1 GM PREMIX 100 ML IV SCH ×2 (07:30→07:56)
[2017-11-30] MEDS: FLUTICASONE PROPIONATE 50 MCG/ACT 16 GM NASAL SPRAY EACH NARE SCH ×2 (09:00→16:17)
[2017-11-30] MEDS ORDERED: VANCOMYCIN INJ 750 MG in SODIUM CHLOR 0.9% 250 ML INJ 250 ML IV SCH (09:00)
[2017-11-30] MEDS: SODIUM CHLOR 0.45% 1000 ML INJ 1,000 ML IV SCH ×2 (09:20→20:11)
--- NOTE | 2017-11-30 09:28 | PD.CONS ---
History of Present Illness Service Neurology Consult Requested By [facility] Reason for Consult seizures Primary Care Physician Zunilda Dwyer M.D. History of Present Illness 51 y/o f admitted for dka. in the icu, intubated. went into shock, requiring pressor support and resp distress. noted to have gaze deviation and possible sz activity. started on keppra. on propofol. given versed with cessation in sz activity. she has had hypocalcemia with low albumin. mri brain- mild ventriculomegaly. white mater changes in bisi, subcortical region. possibly in gyral regions. no acute infarct. pt unable to give any hx. taken from chart. Review of Systems ROS Limitations: Altered Mental Status Past Family Social History Allergies: Coded Allergies: No Known Allergies (Unverified Allergy, Unknown, 11/28/17) Past Medical History Breast cancer Insulin-dependent diabetes mellitus type 1 uncontrolled Osteoporosis/arthritis Allergic rhinitis Tobaccoism Chronic benzodiazepine use Past Surgical History YAG laser right posterior capsulotomy Reported Medications Irbesartan 150 mg p.o. daily Raloxifene 60 mg p.o. daily Insulin pump with insulin aspart Fluticasone 50 mg inhalation daily Amitriptyline 10 mg p.o. daily Estradiol cream 0.01% at night Multivitamin 1 tablet daily Active Ordered Medications Reviewed in EMR Family History n/c at present Social History hx of etoh/tob use Review of Systems All other ROS: Unable to obtain Past Family Social History Allergies: Coded Allergies: No Known Allergies (Unverified Allergy, Unknown, 11/28/17) Active Ordered Medications Current Medications Medications (Trade) Dose Ordered Sig/Kenna Route Start Time Stop Time Status Last Admin (NS Flush) 2 ml UNSCH PRN IV FLUSH 11/28/17 16:00 (NS Flush) 2 ml BID IV FLUSH 11/28/17 21:00 11/29/17 22:12 (Tears Naturale Opth Soln) 1 drop TID EACH EYE 11/28/17 18:00 11/28/17 20:34 (Duoneb Neb) 1 ampule Q6HR NEB INH 11/28/17 16:00 11/30/17 03:14 (Albuterol Neb) 2.5 mg Q2HR NEB PRN INH 11/28/17 16:00 (Chlorhexidine 2% Cloth) 3 pack UNSCH PRN TOP 11/28/17 16:00 Future Hold (Marcie-Colace) 1 tab BID PO 11/28/17 21:00 (Milk Of Magnesia Liq) 30 ml Q12H PRN PO 11/28/17 16:00 (Senokot) 17.2 mg Q12H PRN PO 11/28/17 16:00 (Dulcolax Supp) 10 mg DAILY PRN RECTAL 11/28/17 16:00 (Lactulose Liq) 30 ml DAILY PRN PO 11/28/17 16:00 (Zofran Inj) 4 mg Q6H PRN IV PUSH 11/28/17 16:15 (Heparin Inj) 5,000 units Q8H SQ 11/28/17 18:00 Future Hold 11/29/17 01:31 Miscellaneous Information 1 Q361D XX 11/28/17 16:15 11/28/17 16:15 (Chlorhexidine 2% Cloth) 3 pack Taper DAILY@04 TOP 11/29/17 04:00 11/25/18 03:59 11/30/17 03:46 (Chlorhexidine 2% Cloth) 3 pack UNSCH PRN TOP 11/28/17 16:15 Phenylephrine HCl 160 mg/Dextrose 500 ml @ 7.5 mls/hr TITRATE PRN IV 11/28/17 17:00 11/29/17 22:55 (Brethine Inj) 1 mg UNSCH PRN SQ 11/28/17 17:00 (Flonase Willem Spr) 1 spray BID EACH NARE 11/28/17 21:00 (Theragran) 1 tab DAILY PO 11/29/17 09:00 Thiamine HCl 100 mg/Sodium Chloride 101 ml @ 101 mls/hr DAILY IV 11/29/17 09:00 (D50w (Vial) Inj) 50 ml UNSCH PRN IV PUSH 11/29/17 07:15 11/30/17 07:11 (Glucagon Inj) 1 mg UNSCH PRN OTHER 11/29/17 07:15 (Levemir Inj) 8 units BID SQ 11/29/17 09:00 Future Hold 11/29/17 22:11 Pharmacy Profile Note 0 ml @ 0 mls/hr UNSCH OTHER 11/29/17 07:15 Piperacillin Sod/ Tazobactam Sod 100 ml @ 200 mls/hr Q6H IV 11/29/17 09:00 11/30/17 03:38 Potassium Chloride 100 ml @ 50 mls/hr Q2H PRN IV 11/29/17 07:15 Potassium Chloride 100 ml @ 50 mls/hr Q2H PRN IV 11/29/17 07:15 (K-Lyte Cl Eff) 50 meq UNSCH PRN PO 11/29/17 07:15 Potassium Chloride 100 ml @ 25 mls/hr UNSCH PRN IV 11/29/17 07:15 Potassium Chloride 100 ml @ 50 mls/hr Q2H PRN IV 11/29/17 07:15 Magnesium Sulfate 4 gm/Sodium Chloride 100 ml @ 50 mls/hr UNSCH PRN IV 11/29/17 07:15 (Mag-Ox) 800 mg UNSCH PRN PO 11/29/17 07:15 Magnesium Sulfate 2 gm/Sodium Chloride 100 ml @ 50 mls/hr UNSCH PRN IV 11/29/17 07:15 (K-Phos) 2,000 mg Q4H PRN PO 11/29/17 07:15 Sodium Phosphate 30 mmol/Sodium Chloride 250 ml @ 42 mls/hr UNSCH PRN IV 11/29/17 07:15 11/30/17 05:30 (K-Phos) 2,000 mg UNSCH PRN PO/TUBE 11/29/17 07:15 Potassium Phosphate 30 mmol/ Sodium Chloride 260 ml @ 42 mls/hr UNSCH PRN IV 11/29/17 07:15 11/30/17 06:43 (Peridex 0.12% Liq) 15 ml BID@08,20 MT 11/29/17 08:00 11/29/17 20:00 Propofol 100 ml @ 1.425 mls/ hr TITRATE PRN IV 11/29/17 08:00 Fentanyl Citrate 250 ml @ 5 mls/hr TITRATE PRN IV 11/29/17 08:00 11/29/17 22:34 Vancomycin HCl 750 mg/Sodium Chloride 257.5 ml @ 250 mls/hr Q24H IV 11/30/17 09:00 Miscellaneous Information SPECIFIC LAB TO BE DONAVON... ONCE ONCE .XX 12/02/17 08:45 12/02/17 08:46 (Tylenol 650 Mg/ 20 ml Liq) 650 mg Q6H PRN NG 11/29/17 10:00 Norepinephrine Bitartrate 4 mg/ Sodium Chloride 250 ml @ 7.5 mls/hr TITRATE PRN IV 11/29/17 11:00 11/30/17 05:35 (Brethine Inj) 1 mg UNSCH PRN SQ 11/29/17 10:00 (NovoLOG SUPPLEMENTAL SCALE) 1 Q4HR SQ 11/29/17 12:00 11/29/17 22:12 (NS Flush) DAILY IV FLUSH 11/30/17 09:00 (NS Flush) UNSCH PRN IV FLUSH 11/29/17 11:15 (Aspirin Chew) 81 mg DAILY CHEW 11/30/17 09:00 (Lipitor) 10 mg HS PO 11/29/17 21:00 (Protonix Inj) 40 mg DAILY@2100 IV PUSH 11/29/17 21:00 11/29/17 22:12 Sodium Chloride 1,000 ml @ 100 mls/hr Q10H IV 11/29/17 23:00 11/29/17 22:15 Levetriacetam 500 mg/Sodium Chloride 105 ml @ 420 mls/hr Q12HR IV 11/30/17 09:00 Midazolam HCl 100 ml @ 2 mls/hr TITRATE PRN IV 11/30/17 07:00 Vasopressin 40 units/Dextrose 100 ml @ 6 mls/hr [id number] IV 11/30/17 07:00 Exam I&O / VS 11/30/17 11/30/17 12/01/17 15:00 23:00 07:00 Intake Total 100 ml Balance 100 ml IV Total 100 ml Vital Signs Date Time Temp Pulse Resp B/P (MAP) Pulse Ox O2 Delivery O2 Flow Rate FiO2 11/30/17 08:10 98 100/54 11/30/17 08:00 99 35 11/30/17 07:00 92 114/56 11/30/17 06:22 35 11/30/17 06:15 98 16 102/52 (69) 100 11/30/17 06:15 98 11/30/17 06:00 94 11/30/17 06:00 94 15 100/52 (68) 100 11/30/17 05:35 97 94/49 11/30/17 05:30 99.5 98 15 100/50 (67) 100 11/30/17 05:15 102 15 108/54 (72) 100 11/30/17 04:45 100 15 100/52 (68) 100 11/30/17 04:30 100 16 100/52 (68) 100 11/30/17 04:15 98 16 116/60 (78) 100 11/30/17 04:03 40 11/30/17 04:00 100 11/30/17 04:00 100 40 11/30/17 04:00 100 15 110/58 (75) 100 11/30/17 03:46 94 118/60 11/30/17 03:45 94 15 118/60 (79) 100 11/30/17 03:38 96 15 93/55 (68) 100 116/60 (78) 11/30/17 03:30 98 15 120/62 (81) 100 11/30/17 03:15 98 16 116/60 (78) 100 11/30/17 03:00 98.6 98 16 116/60 (78) 100 11/30/17 02:45 98 15 116/60 (78) 100 11/30/17 02:30 96 15 116/60 (78) 100 11/30/17 02:15 98 16 116/60 (78) 100 11/30/17 02:00 98 11/30/17 02:00 98 13 112/60 (77) 100 11/30/17 01:45 106 36 104/54 (71) 97 11/30/17 01:30 112 15 106/56 (73) 99 11/30/17 01:15 100 50 11/30/17 01:15 50 11/30/17 01:15 104 15 102/52 (69) 100 11/30/17 01:00 106 15 104/52 (69) 100 11/30/17 00:15 106 15 104/54 (71) 100 11/30/17 00:07 106 15 88/55 (66) 100 104/54 (71) 11/30/17 00:00 100 Mechanical Ventilator 11/30/17 00:00 108 11/30/17 00:00 99.6 108 16 102/54 (70) 100 11/29/17 23:52 108 100/52 11/29/17 23:45 108 15 92/50 (64) 100 11/29/17 23:44 108 92/50 11/29/17 23:30 108 15 92/50 (64) 100 11/29/17 23:29 108 15 79/50 (60) 100 90/48 (62) 11/29/17 23:15 110 17 90/48 (62) 100 11/29/17 23:02 112 89/48 11/29/17 23:00 114 24 86/46 (59) 100 11/29/17 22:55 112 88/48 11/29/17 22:38 60 11/29/17 22:38 100 60 11/29/17 22:30 110 16 110/58 (75) 100 11/29/17 22:29 110 18 95/64 (74) 100 112/58 (76) 11/29/17 22:15 110 21 110/58 (75) 100 11/29/17 22:00 112 11/29/17 22:00 112 23 108/58 (75) 100 11/29/17 21:45 110 17 110/58 (75) 100 11/29/17 21:30 108 16 106/56 (73) 100 11/29/17 21:29 108 16 91/59 (70) 100 106/56 (73) 11/29/17 21:15 110 17 110/58 (75) 100 11/29/17 21:11 100 70 11/29/17 21:00 112 17 110/58 (75) 100 11/29/17 21:00 112 110/58 11/29/17 20:45 112 17 110/60 (77) 100 11/29/17 20:30 112 18 110/58 (75) 100 11/29/17 20:29 114 18 99/58 (72) 100 110/60 (77) 11/29/17 20:15 116 18 110/60 (77) 100 11/29/17 20:00 99.1 110 16 94/54 (67) 100 110/56 (74) 11/29/17 20:00 100 Mechanical Ventilator 11/29/17 20:00 110 11/29/17 19:45 108 16 104/54 (71) 100 11/29/17 19:30 110 16 94/60 (71) 100 108/56 (73) 11/29/17 19:15 116 29 110/58 (75) 100 11/29/17 19:15 70 11/29/17 19:12 100 70 11/29/17 19:00 116 22 101/57 (72) 100 112/60 (77) 11/29/17 18:00 116 25 100/51 (67) 100 114/60 (78) 11/29/17 18:00 116 11/29/17 17:34 99 80 11/29/17 17:30 118 21 109/72 (84) 100 116/62 (80) 11/29/17 17:00 120 24 93/57 (69) 100 92/50 (64) 11/29/17 16:00 98.1 118 18 119/64 (82) 100 126/66 (86) 11/29/17 16:00 118 11/29/17 15:00 120 11/29/17 15:00 120 20 104/58 (73) 98 122/62 (82) 11/29/17 14:58 122 122/60 11/29/17 14:00 116 11/29/17 14:00 116 19 103/61 (75) 100 116/58 (77) 11/29/17 13:45 95 80 11/29/17 13:45 100 100 11/29/17 13:00 118 110/58 (75) 97 11/29/17 13:00 118 11/29/17 12:00 128 26 108/56 (73) 97 11/29/17 12:00 128 11/29/17 11:48 99 25 11/29/17 11:00 120 9 112/54 (73) 100 11/29/17 10:00 126 11/29/17 10:00 126 15 128/60 (82) 100 Exam Comments intubated. on propofol, fentanyl gtts. arousable, partially opens eyes, not following, ou 3-2.5mm, no gaze deviation, face sym, minimal localization in ue, no jerking, no le movement Review/Management Diagnosis/Plan: (1) Seizure cerebral ICD Codes: I67.89 - Other cerebrovascular disease Status: Acute Plan: likely metabolic sz's recs iv cerebryx eeg iv keppra correct calcium follow exam (2) Encephalopathy, metabolic ICD Codes: G93.41 - Metabolic encephalopathy Status: Acute Plan: 2/2 dka, renal failure, post-sz activity (3) DKA (diabetic ketoacidoses) ICD Codes: E13.10 - Other specified diabetes mellitus with ketoacidosis without coma Status: Acute Plan: per ccm (4) Acute renal failure ICD Codes: N17.9 - Acute kidney failure, unspecified Status: Acute Plan: hydration/per ccm Problem Qualifiers (1) DKA (diabetic ketoacidoses): Qualified Codes: E10.11 - Type 1 diabetes mellitus with ketoacidosis with coma (2) Acute renal failure: Qualified Codes: N17.9 - Acute kidney failure, unspecified Brijesh Neville MD Nov 30, 2017 09:28
[2017-11-30] MEDS ORDERED: FOSPHENYTOIN SODIUM 100 MG PE/2 ML VIAL IV ONE (09:30)
[2017-11-30] MEDS ORDERED: FOSPHENYTOIN INJ 1,000 MGPE in SODIUM CHLORIDE 0.9% INJ 50 ML IV ONE (09:45)
[2017-11-30] MEDS: MULTIVITAMIN TAB PO SCH (11:01)
[2017-11-30] MEDS: DOCUSATE SODIUM 50 MG/SENNA 8.6 MG TAB PO SCH ×2 (11:01→20:09)
[2017-11-30] MEDS: ASPIRIN 81 MG CHEW TAB CHEW SCH (11:01)
[2017-11-30] MEDS: THIAMINE INJ 100 MG in SODIUM CHLORIDE 0.9% INJ 100 ML IV SCH (11:02)
[2017-11-30] MEDS: SODIUM CHLORIDE 0.9% FLUSH 10 ML FLUSH IV FLUSH SCH ×3 (11:03→20:11)
[2017-11-30] MEDS: levETIRAcetam INJ 500 MG in SODIUM CHLORIDE 0.9% INJ 100 ML IV SCH ×2 (11:04→20:07)
[2017-11-30] MEDS: VASOPRESSIN INJ 40 UNITS in DEXTROSE 5% IN WATER 100ML INJ 98 ML IV SCH ×2 (11:06)
[2017-11-30] MEDS: CHLORHEXIDINE 0.12% (ORAL KIT) 15 ML CUP MT SCH ×2 (11:37→20:11)
[2017-11-30 12:15] LABS: CHOLESTEROL 95 MG/DL (120-200); TRIGLYCERIDES 50 MG/DL (42-150)
[2017-11-30 12:17] LABS: CHOLESTEROL/ HDL RATIO 1.26 RATIO; HDL CHOLESTEROL 75.3 MG/DL (40.0-60.0); LDL CHOLESTEROL 10 MG/DL (0-99)
--- NOTE | 2017-11-30 14:21 | PD.CARD.PN ---
Subjective Subjective Remarks sedated on vent Objective Medications Current Medications Medications (Trade) Dose Ordered Sig/Kenna Route Start Time Stop Time Status Last Admin (NS Flush) 2 ml UNSCH PRN IV FLUSH 11/28/17 16:00 (NS Flush) 2 ml BID IV FLUSH 11/28/17 21:00 11/30/17 11:03 (Tears Naturale Opth Soln) 1 drop TID EACH EYE 11/28/17 18:00 11/28/17 20:34 (Duoneb Neb) 1 ampule Q6HR NEB INH 11/28/17 16:00 11/30/17 11:03 (Albuterol Neb) 2.5 mg Q2HR NEB PRN INH 11/28/17 16:00 (Chlorhexidine 2% Cloth) 3 pack UNSCH PRN TOP 11/28/17 16:00 Future Hold (Marcie-Colace) 1 tab BID PO 11/28/17 21:00 11/30/17 11:01 (Milk Of Magnesia Liq) 30 ml Q12H PRN PO 11/28/17 16:00 (Senokot) 17.2 mg Q12H PRN PO 11/28/17 16:00 (Dulcolax Supp) 10 mg DAILY PRN RECTAL 11/28/17 16:00 (Lactulose Liq) 30 ml DAILY PRN PO 11/28/17 16:00 (Zofran Inj) 4 mg Q6H PRN IV PUSH 11/28/17 16:15 (Heparin Inj) 5,000 units Q8H SQ 11/28/17 18:00 Future Hold 11/29/17 01:31 Miscellaneous Information 1 Q361D XX 11/28/17 16:15 11/28/17 16:15 (Chlorhexidine 2% Cloth) 3 pack Taper DAILY@04 TOP 11/29/17 04:00 11/25/18 03:59 11/30/17 03:46 (Chlorhexidine 2% Cloth) 3 pack UNSCH PRN TOP 11/28/17 16:15 Phenylephrine HCl 160 mg/Dextrose 500 ml @ 7.5 mls/hr TITRATE PRN IV 11/28/17 17:00 11/29/17 22:55 (Brethine Inj) 1 mg UNSCH PRN SQ 11/28/17 17:00 (Flonase Willem Spr) 1 spray BID EACH NARE 11/28/17 21:00 (Theragran) 1 tab DAILY PO 11/29/17 09:00 11/30/17 11:01 Thiamine HCl 100 mg/Sodium Chloride 101 ml @ 101 mls/hr DAILY IV 11/29/17 09:00 11/30/17 11:02 (D50w (Vial) Inj) 50 ml UNSCH PRN IV PUSH 11/29/17 07:15 11/30/17 07:11 (Glucagon Inj) 1 mg UNSCH PRN OTHER 11/29/17 07:15 (Levemir Inj) 8 units BID SQ 11/29/17 09:00 Future Hold 11/29/17 22:11 Pharmacy Profile Note 0 ml @ 0 mls/hr UNSCH OTHER 11/29/17 07:15 Piperacillin Sod/ Tazobactam Sod 100 ml @ 200 mls/hr Q6H IV 11/29/17 09:00 11/30/17 09:18 Potassium Chloride 100 ml @ 50 mls/hr Q2H PRN IV 11/29/17 07:15 Potassium Chloride 100 ml @ 50 mls/hr Q2H PRN IV 11/29/17 07:15 (K-Lyte Cl Eff) 50 meq UNSCH PRN PO 11/29/17 07:15 Potassium Chloride 100 ml @ 25 mls/hr UNSCH PRN IV 11/29/17 07:15 Potassium Chloride 100 ml @ 50 mls/hr Q2H PRN IV 11/29/17 07:15 Magnesium Sulfate 4 gm/Sodium Chloride 100 ml @ 50 mls/hr UNSCH PRN IV 11/29/17 07:15 (Mag-Ox) 800 mg UNSCH PRN PO 11/29/17 07:15 Magnesium Sulfate 2 gm/Sodium Chloride 100 ml @ 50 mls/hr UNSCH PRN IV 11/29/17 07:15 (K-Phos) 2,000 mg Q4H PRN PO 11/29/17 07:15 Sodium Phosphate 30 mmol/Sodium Chloride 250 ml @ 42 mls/hr UNSCH PRN IV 11/29/17 07:15 11/30/17 05:30 (K-Phos) 2,000 mg UNSCH PRN PO/TUBE 11/29/17 07:15 Potassium Phosphate 30 mmol/ Sodium Chloride 260 ml @ 42 mls/hr UNSCH PRN IV 11/29/17 07:15 11/30/17 06:43 (Peridex 0.12% Liq) 15 ml BID@08,20 MT 11/29/17 08:00 11/30/17 11:37 Propofol 100 ml @ 1.425 mls/ hr TITRATE PRN IV 11/29/17 08:00 Fentanyl Citrate 250 ml @ 5 mls/hr TITRATE PRN IV 11/29/17 08:00 11/29/17 22:34 Miscellaneous Information SPECIFIC LAB TO BE DONAVON... ONCE ONCE .XX 12/02/17 08:45 12/02/17 08:46 (Tylenol 650 Mg/ 20 ml Liq) 650 mg Q6H PRN NG 11/29/17 10:00 Norepinephrine Bitartrate 4 mg/ Sodium Chloride 250 ml @ 7.5 mls/hr TITRATE PRN IV 11/29/17 11:00 11/30/17 13:26 (Brethine Inj) 1 mg UNSCH PRN SQ 11/29/17 10:00 (NovoLOG SUPPLEMENTAL SCALE) 1 Q4HR SQ 11/29/17 12:00 11/30/17 12:54 (NS Flush) DAILY IV FLUSH 11/30/17 09:00 11/30/17 11:03 (NS Flush) UNSCH PRN IV FLUSH 11/29/17 11:15 (Aspirin Chew) 81 mg DAILY CHEW 11/30/17 09:00 11/30/17 11:01 (Lipitor) 10 mg HS PO 11/29/17 21:00 (Protonix Inj) 40 mg DAILY@2100 IV PUSH 11/29/17 21:00 11/29/17 22:12 Sodium Chloride 1,000 ml @ 100 mls/hr Q10H IV 11/29/17 23:00 11/30/17 09:20 Levetriacetam 500 mg/Sodium Chloride 105 ml @ 420 mls/hr Q12HR IV 11/30/17 09:00 11/30/17 11:04 Midazolam HCl 100 ml @ 2 mls/hr TITRATE PRN IV 11/30/17 07:00 Vasopressin 40 units/Dextrose 100 ml @ 6 mls/hr [id number] IV 11/30/17 07:00 11/30/17 11:06 (Cerebyx Inj) 200 mgpe Q12HR IV 11/30/17 21:00 Vancomycin HCl 600 mg/Sodium Chloride 256 ml @ 250 mls/hr Q12H IV 11/30/17 21:00 Vital Signs / I&O Vital Signs Date Time Temp Pulse Resp B/P (MAP) Pulse Ox O2 Delivery O2 Flow Rate FiO2 11/30/17 13:26 96 116/64 11/30/17 13:00 99.2 96 28 118/66 (83) 94 11/30/17 12:10 92 45 11/30/17 12:00 106 11/30/17 12:00 106 15 88/52 (64) 91 11/30/17 11:06 98 108/56 11/30/17 11:00 92 16 114/58 (76) 99 11/30/17 10:55 99 35 11/30/17 10:00 98 16 106/56 (73) 99 11/30/17 10:00 98 11/30/17 09:00 90 15 126/62 (83) 100 11/30/17 08:19 99.5 98 15 85/53 (64) 100 98/52 (67) 11/30/17 08:10 98 100/54 11/30/17 08:00 99 35 11/30/17 08:00 98 11/30/17 07:00 92 16 114/56 (75) 100 11/30/17 07:00 92 114/56 11/30/17 06:22 35 11/30/17 06:15 98 16 102/52 (69) 100 11/30/17 06:15 98 11/30/17 06:00 94 11/30/17 06:00 94 15 100/52 (68) 100 11/30/17 05:35 97 94/49 11/30/17 05:30 99.5 98 15 100/50 (67) 100 11/30/17 05:15 102 15 108/54 (72) 100 11/30/17 04:45 100 15 100/52 (68) 100 11/30/17 04:30 100 16 100/52 (68) 100 11/30/17 04:15 98 16 116/60 (78) 100 11/30/17 04:03 40 11/30/17 04:00 100 11/30/17 04:00 100 40 11/30/17 04:00 100 15 110/58 (75) 100 11/30/17 03:46 94 118/60 11/30/17 03:45 94 15 118/60 (79) 100 11/30/17 03:38 96 15 93/55 (68) 100 116/60 (78) 11/30/17 03:30 98 15 120/62 (81) 100 11/30/17 03:15 98 16 116/60 (78) 100 11/30/17 03:00 98.6 98 16 116/60 (78) 100 11/30/17 02:45 98 15 116/60 (78) 100 11/30/17 02:30 96 15 116/60 (78) 100 11/30/17 02:15 98 16 116/60 (78) 100 11/30/17 02:00 98 11/30/17 02:00 98 13 112/60 (77) 100 11/30/17 01:45 106 36 104/54 (71) 97 11/30/17 01:30 112 15 106/56 (73) 99 11/30/17 01:15 100 50 11/30/17 01:15 50 11/30/17 01:15 104 15 102/52 (69) 100 11/30/17 01:00 106 15 104/52 (69) 100 11/30/17 00:15 106 15 104/54 (71) 100 11/30/17 00:07 106 15 88/55 (66) 100 104/54 (71) 11/30/17 00:00 100 Mechanical Ventilator 11/30/17 00:00 108 11/30/17 00:00 99.6 108 16 102/54 (70) 100 11/29/17 23:52 108 100/52 11/29/17 23:45 108 15 92/50 (64) 100 11/29/17 23:44 108 92/50 11/29/17 23:30 108 15 92/50 (64) 100 11/29/17 23:29 108 15 79/50 (60) 100 90/48 (62) 11/29/17 23:15 110 17 90/48 (62) 100 11/29/17 23:02 112 89/48 11/29/17 23:00 114 24 86/46 (59) 100 11/29/17 22:55 112 88/48 11/29/17 22:38 60 11/29/17 22:38 100 60 11/29/17 22:30 110 16 110/58 (75) 100 11/29/17 22:29 110 18 95/64 (74) 100 112/58 (76) 11/29/17 22:15 110 21 110/58 (75) 100 11/29/17 22:00 112 11/29/17 22:00 112 23 108/58 (75) 100 11/29/17 21:45 110 17 110/58 (75) 100 11/29/17 21:30 108 16 106/56 (73) 100 11/29/17 21:29 108 16 91/59 (70) 100 106/56 (73) 11/29/17 21:15 110 17 110/58 (75) 100 11/29/17 21:11 100 70 11/29/17 21:00 112 17 110/58 (75) 100 11/29/17 21:00 112 110/58 11/29/17 20:45 112 17 110/60 (77) 100 11/29/17 20:30 112 18 110/58 (75) 100 11/29/17 20:29 114 18 99/58 (72) 100 110/60 (77) 11/29/17 20:15 116 18 110/60 (77) 100 11/29/17 20:00 99.1 110 16 94/54 (67) 100 110/56 (74) 11/29/17 20:00 100 Mechanical Ventilator 11/29/17 20:00 110 11/29/17 19:45 108 16 104/54 (71) 100 11/29/17 19:30 110 16 94/60 (71) 100 108/56 (73) 11/29/17 19:15 116 29 110/58 (75) 100 11/29/17 19:15 70 11/29/17 19:12 100 70 11/29/17 19:00 116 22 101/57 (72) 100 112/60 (77) 11/29/17 18:00 116 25 100/51 (67) 100 114/60 (78) 11/29/17 18:00 116 11/29/17 17:34 99 80 11/29/17 17:30 118 21 109/72 (84) 100 116/62 (80) 11/29/17 17:00 120 24 93/57 (69) 100 92/50 (64) 11/29/17 16:00 98.1 118 18 119/64 (82) 100 126/66 (86) 11/29/17 16:00 118 11/29/17 15:00 120 11/29/17 15:00 120 20 104/58 (73) 98 122/62 (82) 11/29/17 14:58 122 122/60 I/O 11/29/17 11/29/17 11/29/17 11/30/17 11/30/17 11/30/17 07:00 15:00 23:00 07:00 15:00 23:00 Intake Total 564 ml 867 ml 600 ml 41 ml 1520 ml Output Total 1100 ml 550 ml 850 ml Balance -536 ml 867 ml 50 ml -809 ml 1520 ml Intake Oral 0 ml 0 ml 0 ml IV Total 564 ml 867 ml 600 ml 41 ml 1520 ml Output Urine Total 1100 ml 550 ml 850 ml # Bowel Movements 0 0 Physical Exam GENERAL: Well developed, well nourished. No acute distress on vent HEENT: Jugular venous pressure is normal. CHEST: Lungs clear to auscultation bilaterally. Unlabored respiratory effort. CARDIAC: Regular rate and rhythm without S3, S4, or murmur. ABDOMEN: Soft, nontender, no hepatosplenomegaly. Bowel sounds present. EXTREMITIES: No clubbing, cyanosis, tr edema. Laboratory Laboratory Tests Test 11/29/17 14:38 11/29/17 17:00 11/29/17 20:00 11/29/17 23:45 Blood Gas Puncture Site RT FEMORAL Blood Gas Patient Temperature 37.0 Blood Gas HCO3 18 mmol/L Blood Gas Base Excess -6.1 mmol/L Blood Gas Oxygen Saturation 95 % Arterial Blood pH 7.36 Arterial Blood Partial Pressure CO2 34 mmHg Arterial Blood Partial Pressure O2 87 mmHg Arterial Blood Oxygen Content 14.3 Vol % Arterial Blood Carboxyhemoglobin 1.2 % Arterial Blood Methemoglobin 1.1 % Blood Gas Hemoglobin 10.6 G/DL Oxygen Delivery Device VENTILATOR Blood Gas Ventilator Setting PVRC/AC/16/450/1./5P Blood Gas Inspired Oxygen 80 % Blood Urea Nitrogen 21 MG/DL Creatinine 0.91 MG/DL Random Glucose 203 MG/DL Total Protein 4.8 GM/DL Calcium Level 7.0 MG/DL Phosphorus Level 1.8 MG/DL 1.0 MG/DL Magnesium Level 1.9 MG/DL Sodium Level 152 MEQ/L Potassium Level 3.9 MEQ/L 3.7 MEQ/L Chloride Level 122 MEQ/L Carbon Dioxide Level 21.2 MEQ/L Anion Gap 9 MEQ/L Estimat Glomerular Filtration Rate 62 ML/MIN Lactic Acid Level 2.6 mmol/L 3.2 mmol/L Protein Corrected Calcium 8.2 MG/DL Troponin I 6.91 NG/ML 5.71 NG/ML B-Hydroxybutyrate 0.23 MMOL/L Test 11/30/17 04:55 11/30/17 08:15 White Blood Count 15.6 TH/MM3 Red Blood Count 2.97 MIL/MM3 Hemoglobin 9.5 GM/DL Hematocrit 28.4 % Mean Corpuscular Volume 95.5 FL Mean Corpuscular Hemoglobin 31.8 PG Mean Corpuscular Hemoglobin Concent 33.3 % Red Cell Distribution Width 13.2 % Platelet Count 177 TH/MM3 Mean Platelet Volume 6.9 FL Neutrophils (%) (Auto) 88.5 % Lymphocytes (%) (Auto) 9.0 % Monocytes (%) (Auto) 2.3 % Eosinophils (%) (Auto) 0.1 % Basophils (%) (Auto) 0.1 % Neutrophils # (Auto) 13.8 TH/MM3 Lymphocytes # (Auto) 1.4 TH/MM3 Monocytes # (Auto) 0.4 TH/MM3 Eosinophils # (Auto) 0.0 TH/MM3 Basophils # (Auto) 0.0 TH/MM3 CBC Comment DIFF FINAL Differential Comment Blood Urea Nitrogen 14 MG/DL Creatinine 0.65 MG/DL Random Glucose 80 MG/DL Total Protein 4.8 GM/DL Albumin 2.4 GM/DL Calcium Level 6.7 MG/DL Phosphorus Level 1.1 MG/DL Magnesium Level 1.7 MG/DL Alkaline Phosphatase 51 U/L Aspartate Amino Transf (AST/SGOT) 88 U/L Alanine Aminotransferase (ALT/SGPT) 47 U/L Total Bilirubin 0.6 MG/DL Sodium Level 148 MEQ/L Potassium Level 3.7 MEQ/L Chloride Level 119 MEQ/L Carbon Dioxide Level 22.5 MEQ/L Anion Gap 7 MEQ/L Estimat Glomerular Filtration Rate 92 ML/MIN Lactic Acid Level 1.5 mmol/L Protein Corrected Calcium 7.9 MG/DL Troponin I 2.80 NG/ML Triglycerides Level 50 MG/DL Cholesterol Level 95 MG/DL LDL Cholesterol 10 MG/DL HDL Cholesterol 75.3 MG/DL Cholesterol/HDL Ratio 1.26 RATIO Blood Gas Puncture Site ART LINE Blood Gas Patient Temperature 37.0 Blood Gas HCO3 19 mmol/L Blood Gas Base Excess -4.8 mmol/L Blood Gas Oxygen Saturation 97 % Arterial Blood pH 7.41 Arterial Blood Partial Pressure CO2 31 mmHg Arterial Blood Partial Pressure O2 120 mmHg Arterial Blood Oxygen Content 12.6 Vol % Arterial Blood Carboxyhemoglobin 1.3 % Arterial Blood Methemoglobin 0.8 % Blood Gas Hemoglobin 9.0 G/DL Oxygen Delivery Device VENT PRVC/AC Blood Gas Ventilator Setting RR16/VT450/+5 PEEP Blood Gas Inspired Oxygen 35 % Imaging Last 24 hours Impressions Chest X-Ray 11/30/17 0600 Signed Impressions: Service Date/Time: Thursday, November 30, 2017 06:07 - CONCLUSION: 1. Worsening bilateral edema versus pneumonia. 2. Lower lobe atelectasis. Patrick Hamm MD Renal Ultrasound 11/29/17 1656 Signed Impressions: Service Date/Time: Wednesday, November 29, 2017 13:16 - CONCLUSION: 1. Both kidneys are sonographically normal without hydronephrosis or nephrolithiasis. 2. Very abnormal appearance of the gallbladder with mural thickening and minimal pericholecystic fluid Dani Titus MD Assessment and Plan Problem List: (1) NSTEMI (non-ST elevated myocardial infarction) ICD Codes: I21.4 - Non-ST elevation (NSTEMI) myocardial infarction Plan: continue with conservative management for now (2) Cardiomyopathy ICD Codes: I42.9 - Cardiomyopathy, unspecified Plan: EF 40%, on multiple pressors so BP too low for BB or CHUYITA/ARB (3) DKA (diabetic ketoacidoses) ICD Codes: E13.10 - Other specified diabetes mellitus with ketoacidosis without coma Status: Acute (4) Altered mental status ICD Codes: R41.82 - Altered mental status, unspecified Status: Acute (5) Shock ICD Codes: R57.9 - Shock, unspecified Status: Acute (6) DM type 1 (diabetes mellitus, type 1) ICD Codes: E10.9 - DM type 1 (diabetes mellitus, type 1) Status: Acute (7) Tobacco abuse ICD Codes: Z72.0 - Tobacco abuse Status: Acute (8) Respiratory failure ICD Codes: J96.90 - Respiratory failure, unspecified, unspecified whether with hypoxia or hypercapnia (9) Anemia ICD Codes: D64.9 - Anemia, unspecified Problem Qualifiers (1) DKA (diabetic ketoacidoses): Qualified Codes: E10.11 - Type 1 diabetes mellitus with ketoacidosis with coma (2) Altered mental status: Qualified Codes: R40.1 - Stupor (3) DM type 1 (diabetes mellitus, type 1): Qualified Codes: E10.69 - Type 1 diabetes mellitus with other specified complication; E10.65 - Type 1 diabetes mellitus with hyperglycemia Karla Ham MD Nov 30, 2017 14:21
[2017-11-30] MEDS: ARTIFICIAL TEARS OPTH SOLN 15 ML BTL EACH EYE SCH ×3 (16:19→18:17)
--- NOTE | 2017-11-30 16:42 | EKG ---
Date Performed: 11/29/2017 Time Performed: 14:20:07 PTAGE: 61 years EKG: SINUS TACHYCARDIA LOW QRS VOLTAGE IN EXTREMITY LEADS NONSPECIFIC ST & T-WAVE ABNORMALITY Si nce the previous tracing, no significant change noted ABNORMAL RHYTHM ECG PREVIOUS TRACING : 11/28/2017 18.49 DOCTOR: Karla Ham Interpretating Date/Time 11/30/2017 16:41:25
[2017-11-30] MEDS: ACETAMINOPHEN 650 MG/20.3 ML UDC NG PRN (16:47)
[2017-11-30] MEDS ORDERED: FUROSEMIDE 20 MG/2 ML VIAL IV PUSH ONE (17:15)
[2017-11-30] MEDS ORDERED: RESP: RACEPINEPHRINE 2.25% 0.5 ML NEB NEB ONE (17:15)
[2017-11-30] MEDS ORDERED: fentaNYL DRIP 250 ML IV PRN (17:15)
[2017-11-30] MEDS ORDERED: PROPOFOL 1000 MG/100 ML INJ 100 ML IV PRN (17:15)
[2017-11-30] MEDS ORDERED: SODIUM BICARBONATE 8.4% INJ 50 MEQ/50 ML SYR IV PUSH ONE (17:30)
[2017-11-30] MEDS ORDERED: EPINEPHrine HCL (1:10,000) 1 MG/10 ML SYRINGE IV ONE (17:30)
[2017-11-30] MEDS ORDERED: ROCURONIUM INJ 50 MG/5 ML VIAL IV ONE (17:30)
--- NOTE | 2017-11-30 17:53 | PD.PROCEDR ---
Procedure Note Procedure DATE: 11/30/2017 Bronchoscopy/diagnostic and therapeutic INDICATION: Hemoptysis CONSENT Informed consent for procedure was obtained from sister Evelyn Obrien. DESCRIPTION OF THE PROCEDURE The patient was placed in supine position. ACV 15/500/5/100. Patient was sedated on ventilator and received 10 cc propofol and 50 mg rocuronium. I enter the 8.0 ET tube with flexible bronchoscopy. The kera was sharp. Blood was noted at the right mainstem and left mainstem bronchus. I evaluated the right upper, middle and lower lobes. These were suctioned with copious amounts of cold saline. Mucosa was normal. No signs of masses. There was what appeared to be active bleeding in the right middle lobe lower lobe received approximately 30 cc of sodium bicarbonate each. No bleeding post infusion.. I then entered the left main bronchus. The lingula/upper lobe and lower lobes were evaluated. These were suctioned with copious amounts saline for bright red blood. No masses. Mucosa was normal. There was no active bleeding visualized in the left main bronchus/lingula/lower lobe.. I withdrew the flexible bronchoscopy. Saturations remained above 98% at all times ESTIMATED BLOOD LOSS: Minimal COMPLICATIONS: No apparent complications. STAT chest x-ray pending at time of dictation Austin Thrasher MD Nov 30, 2017 17:53
[2017-11-30] MEDS ORDERED: levETIRAcetam INJ 100 ML IV SCH (18:00)
--- NOTE | 2017-11-30 18:15 | RADRPT ---
EXAM DATE/TIME: 11/30/2017 17:56 [facility] COMPARISON: No previous studies available for comparison. INDICATIONS : Post bronchoscopy. MEDICAL HISTORY : Diabetes mellitus type I. SURGICAL HISTORY : Cataract, insulin pump ENCOUNTER: Initial ACUITY: 1 day PAIN SCORE: Non-responsive. LOCATION: Bilateral chest FINDINGS: Patchy consolidation throughout the right lung and at the left base unchanged. No large effusion seen . No pneumothorax. Right chest tube remains in place. Endotracheal tube tip is 1.8 cm above the kera. There is a nasog astric tube coiled in the stomach. Left internal jugular central venous catheter present with tip in the superior vena cava. CONCLUSION: 1. No pneumothorax or other acute complication demonstrated. 2. Bilateral airspace opacities unchanged. 3. Lines and tubes as above. Uziel Murry MD on November 30, 2017 at 18:12 Board Certified Radiologist. This report was verified electronically.
[2017-11-30 18:17] LABS: BICARBONATE 23.5 MEQ/L (21.0-32.0); CALCIUM 6.5 MG/DL (8.5-10.1); CREATININE 0.59 MG/DL (0.50-1.00); MAGNESIUM 2.1 MG/DL (1.5-2.5); PHENYTOIN (DILANTIN) 13.1 MCG/ML (10.0-20.0); PHOSPHORUS 1.5 MG/DL (2.5-4.9)
[2017-11-30 18:42] LABS: CALCIUM-PROTEIN CORRECTED 7.6 MG/DL (8.5-10.1); TOTAL PROTEIN 4.8 GM/DL (6.4-8.2)
[2017-11-30] MEDS: VANCOMYCIN INJ 600 MG in SODIUM CHLOR 0.9% 250 ML INJ 250 ML IV SCH (20:07)
[2017-11-30] MEDS: FOSPHENYTOIN SODIUM 100 MG PE/2 ML VIAL IV SCH (20:09)
[2017-11-30] MEDS: PANTOPRAZOLE SODIUM 40 MG VIAL IV PUSH SCH (20:10)
[2017-11-30] MEDS: ATORVASTATIN 10 MG TAB PO SCH (20:10)
[2017-12-01] VITALS (61 sets, daily range): BP systolic 64–140; BP diastolic 46–126; PULSE 72–96; RESP 15–20; TEMP 97.8–99.7; O2SAT 91–100
[2017-12-01] MEDS: INSULIN ASPART SUPPLEMENTAL SCALE SQ SCH ×6 (00:17→19:55)
[2017-12-01] MEDS: VASOPRESSIN INJ 40 UNITS in DEXTROSE 5% IN WATER 100ML INJ 98 ML IV SCH ×4 (02:18→16:36)
[2017-12-01] MEDS: PIPERACIL-TAZO 4.5 GM PREMIX 100 ML IV SCH ×4 (02:58→19:53)
[2017-12-01] MEDS: RESP: ALBUTEROL 2.5 MG/IPRATROPIUM 0.5 MG NEB (SCH) INH ×4 (03:26→20:58)
[2017-12-01] MEDS: CHLORHEXIDINE GLUCONATE 2 % 1 PACK (2 CLOTHS) TOP SCH (04:00)
--- NOTE | 2017-12-01 04:40 | RADRPT ---
EXAM DATE/TIME: 12/01/2017 03:56 [facility] COMPARISON: CHEST SINGLE AP, November 30, 2017, 17:56. INDICATIONS : Respiratory failure. MEDICAL HISTORY : Diabetes mellitus type I. SURGICAL HISTORY : Cataract, insulin pump ENCOUNTER: Subsequent ACUITY: 4 - 6 days PAIN SCORE: Non-responsive. LOCATION: Bilateral chest FINDINGS: The cardiac silhouette is normal in transverse diameter. There is patchy alveolar disease bilaterally compatible with edema or pneumonia. There is left lower lobe atelectasis versus pneumonia. Support l karlie and tubes are in satisfactory position. There is no evidence of pneumothorax. CONCLUSION: 1. Patchy alveolar disease characteristic of edema or pneumonia. There has been no significant coker e when compared to the prior exam. Patrick Hamm MD on December 01, 2017 at 4:37 Board Certified Radiologist. This report was verified electronically.
[2017-12-01 05:42] LABS: AUTOMATED NEUTROPHIL # 14.4 TH/MM3 (1.8-7.7); BASOPHIL % 0.2 % (0.0-2.0); EOSINOPHIL % 0.1 % (0.0-4.0); HEMATOCRIT 28.2 % (35.0-46.0); HEMOGLOBIN 9.6 GM/DL (11.6-15.3); LYMPH % 7.7 % (9.0-44.0); LYMPHOCYTE # 1.2 TH/MM3 (1.0-4.8); MEAN CELL VOLUME 95.4 FL (80.0-100.0); MEAN CORPUSCULAR HEMOGLOBIN 32.6 PG (27.0-34.0); MEAN CORPUSCULAR HGB CONC 34.2 % (32.0-36.0); MEAN PLATELET VOLUME 7.6 FL (7.0-11.0); MONO % 2.2 % (0.0-8.0); MONOCYTE # 0.4 TH/MM3 (0-0.9); NEUT % 89.8 % (16.0-70.0); PLATELET COUNT 141 TH/MM3 (150-450); RED BLOOD COUNT 2.96 MIL/MM3 (4.00-5.30)
[2017-12-01 05:57] LABS: BANDS 12 % (0-6); LYMPHOCYTES 8 % (9-44); MONOCYTES 1 % (0-8); NEUTROPHIL # MANUAL DIFF 14.6 TH/MM3 (1.8-7.7); POLYS (SEG NEUTROPHILS) 79 % (16-70)
[2017-12-01 06:25] LABS: ALBUMIN 2.1 GM/DL (3.4-5.0); BICARBONATE 25.3 MEQ/L (21.0-32.0); CALCIUM 6.3 MG/DL (8.5-10.1); CREATININE 0.6 MG/DL (0.50-1.00); PHENYTOIN (DILANTIN) 12.4 MCG/ML (10.0-20.0); TOTAL BILIRUBIN ADULT 0.7 MG/DL (0.2-1.0); TOTAL PROTEIN 4.9 GM/DL (6.4-8.2)
[2017-12-01 06:28] LABS: CALCIUM-PROTEIN CORRECTED 7.4 MG/DL (8.5-10.1)
--- NOTE | 2017-12-01 08:10 | HHI.CCPN ---
Subjective Remarks/Hospital Course This is a 51-year-old female. Date of admission 11/28/2017. Past medical history includes diabetes mellitus type 1 uncontrolled insulin- dependent with retinopathy on home insulin pump, hypertension, allergic rhinitis and chronic benzodiazepine use. She also has history of breast cancer on raloxifene she originally presented to [facility] ED During the workup, patient was noted to have a blood sugar of 808. Elevated acetone. Sodium 135. Potassium 6.0. Ferritin 2.1. Leukocytosis 25,000. Macrocytic anemia. UA negative for infectious etiology. She was bolused with 3 L of 0.9% NaCl IV fluid bolus. She is received 3 ampules of sodium bicarbonate and 1 g calcium gluconate. Chest x-ray post procedure revealed the CT scan of the head is read by the radiologist as ventriculomegaly but otherwise no acute findings. 11/29: Patient had nonrebreather off all night. PTX now 8 mm. Yells "Help me " "I don't know" Gap has closed, will transition back to SQ insulin if able to pass swallow. Replacing lytes. SUBJECTIVE: 11/30: Patient opens eyes to voice. Leftward gaze. Frequent blinking. Withdraws to stimulation bilateral lower extremities. T-max 99.5. Remains on norepinephrine and phenylephrine drips. MRI brain revealed ventriculomegaly. No acute signs of CVA. Echocardiogram EF 40%. 12/01: Afebrile. Patient remains off sedation approximately 24 hours nonresponsive. EEG in process. BAL revealed gram-negative rods the patient continues on Zosyn. The patient remains on vasopressors norepinephrine, vasopressin, and phenylephrine. Versed infusion restarted secondary to seizure activity noted on repeat EEG this a.m.. Objective Vital Signs Date Time Temp Pulse Resp B/P (MAP) Pulse Ox O2 Delivery O2 Flow Rate FiO2 12/01/17 07:34 95 40 12/01/17 06:06 86 126/58 12/01/17 06:01 16 12/01/17 04:00 99.5 11/30/17 20:00 Mechanical Ventilator 11/29/17 07:00 2.00 Intake and Output 12/01/17 12/01/17 12/02/17 08:00 16:00 00:00 Intake Total 0 ml Output Total 300 ml Balance -300 ml Result Diagram: 12/01/17 0517 12/01/17 0517 Other Results Microbiology Date/Time Source Procedure Growth Status 11/29/17 20:00 Nasal Aspirate Influenza Types A,B Antigen (KELY) - Final NEGATIVE FOR FLU A AND B ANTIGEN.... Complete 11/28/17 15:28 Urine Catheterized Urine Urine Culture - Final NO GROWTH IN 48 HOURS. Complete Laboratory Tests Test 11/30/17 08:15 Blood Gas Puncture Site ART LINE Blood Gas Patient Temperature 37.0 Blood Gas HCO3 19 mmol/L (22-26) Blood Gas Base Excess -4.8 mmol/L (-2-2) Blood Gas Oxygen Saturation 97 % (90-100) Arterial Blood pH 7.41 (7.380-7.420) Arterial Blood Partial Pressure CO2 31 mmHg (38-42) Arterial Blood Partial Pressure O2 120 mmHg (61-120) Arterial Blood Oxygen Content 12.6 Vol % (12.0-20.0) Arterial Blood Carboxyhemoglobin 1.3 % (0-4) Arterial Blood Methemoglobin 0.8 % (0-2) Blood Gas Hemoglobin 9.0 G/DL (12.0-16.0) Oxygen Delivery Device VENT PRVC/AC Blood Gas Ventilator Setting RR16/VT450/+5 PEEP Blood Gas Inspired Oxygen 35 % Imaging Last Impressions Chest X-Ray 12/01/17 0600 Signed Impressions: Service Date/Time: Friday, December 01, 2017 03:56 - CONCLUSION: 1. Patchy alveolar disease characteristic of edema or pneumonia. There has been no significant change when compared to the prior exam. Patrick Hamm MD Renal Ultrasound 11/29/17 1656 Signed Impressions: Service Date/Time: Wednesday, November 29, 2017 13:16 - CONCLUSION: 1. Both kidneys are sonographically normal without hydronephrosis or nephrolithiasis. 2. Very abnormal appearance of the gallbladder with mural thickening and minimal pericholecystic fluid Dani Titus MD Brain MRI 11/29/17 0000 Signed Impressions: Service Date/Time: Wednesday, November 29, 2017 13:27 - CONCLUSION: 1. Mild diffuse ventriculomegaly. Clinical correlation for normal pressure hydrocephalus is recommended. 2. Isgk-hf-enslrech periventricular small vessel ischemic white matter demyelination, out of proportion for age. Aly Leigh MD Head CT 11/28/17 0000 Signed Impressions: Service Date/Time: November 15:46 - CONCLUSION: 1. Ventriculomegaly suggesting central cerebral atrophy versus hydrocephalus. Clinical correlation is recommended. 2. No acute infarct, acute hemorrhage, midline shift or extra-axial fluid collections. Dev Christopher MD Last Impressions Renal Ultrasound 11/29/17 1656 Signed Impressions: Service Date/Time: Wednesday, November 29, 2017 13:16 - CONCLUSION: 1. Both kidneys are sonographically normal without hydronephrosis or nephrolithiasis. 2. Very abnormal appearance of the gallbladder with mural thickening and minimal pericholecystic fluid Dani Titus MD Chest X-Ray 11/29/17 1102 Signed Impressions: Service Date/Time: Wednesday, November 29, 2017 11:03 - CONCLUSION: Line in good position.. Ousmane Bird MD FACR Brain MRI 11/29/17 0000 Signed Impressions: Service Date/Time: Wednesday, November 29, 2017 13:27 - CONCLUSION: 1. Mild diffuse ventriculomegaly. Clinical correlation for normal pressure hydrocephalus is recommended. 2. Sbwq-ki-uejoyrlg periventricular small vessel ischemic white matter demyelination, out of proportion for age. Aly Leigh MD Head CT 11/28/17 0000 Signed Impressions: Service Date/Time: November 15:46 - CONCLUSION: 1. Ventriculomegaly suggesting central cerebral atrophy versus hydrocephalus. Clinical correlation is recommended. 2. No acute infarct, acute hemorrhage, midline shift or extra-axial fluid collections. Dev Christopher MD Objective Remarks GENERAL: 61-year-old female critically ill currently orotracheally intubated SKIN: Warm and dry. No rash HEAD: Atraumatic. Normocephalic. EYES: Pupils equal and round about 2 mm bilaterally reactive. No scleral icterus. No injection or drainage. ENT: No nasal bleeding or discharge. Mucous membranes pink and moist NECK: Trachea midline. No JVD. Left IJ CVL is clean dry and intact CARDIOVASCULAR: RRR. S1, S2 no S4.. No murmur RESPIRATORY: Essentially clear to auscultation bilaterally without wheezes rales or rhonchi. Right chest tube with minimal sanguinous output -20 cm H2O GASTROINTESTINAL: Abdomen soft, non-tender, nondistended. Hyperactive bowel sounds appreciated MUSCULOSKELETAL: Extremities with trace upper and lower extremity edema. NEUROLOGICAL: Positive cough and gag. Opens eyes and blinks. Leftward gaze. Upward toes. Withdraws bilateral lower extremities. Urinary Catheter: Yes Date of Insertion: Nov 28, 2017 Line: Central Venous Catheter Side: Left Location: Internal, Jugular A/P Assessment and Plan Neuro/Psych: Acute encephalopathy secondary to diabetic ketoacidosis Anxiety disorder NOS Benzodiazepine use Patient is written for propofol/fentanyl drips for sedation/analgesia while intubated. 12/01 placed temporarily on hold for assessment of neurological status Placed on Midazolam infusion Goal of RASS 0 Daily sedation vacation Acetaminophen 650 mg by tube every 6 hours as needed fever CT brain 11/28 revealed Ventriculomegaly suggesting central cerebral atrophy versus hydrocephalus. Clinical correlation is recommended. No acute infarct, acute hemorrhage, midline shift or extra-axial fluid collections. She is on amitriptyline 10 mg daily at home. This has been held UDS negative MRI brain 11/29 revealed mild to moderate ventriculomegaly. EEG ordered 11/29. Repeat EEG 12/01-pending Started on levetiracetam 500 mg IV every 12 hours after 1 g bolus Neurology consultation CV: History of hypertension Shock Elevated troponin Acute systolic heart failure ejection fraction 40% NSTEMI cardiomyopathy 12/01 Decreased 1/2 NS at 75 cc/hr CVP - 9 Phenylephrine drip and norepinephrine drip to maintain mean arterial pressure greater than equal to 65. Currently at 100 mcg/min and 9 mcg/min respectively. Attempt to wean down the phenylephrine drip off Cardiology/Dr. Ham following Started on atorvastatin 10 mg by tube daily Continue aspirin 81 mg by tube daily 2D echocardiogram revealed EF around 40%. LV increased size. Septal hypokinesis. Repeat troponin the same decreased to 2.8 Patient is on irbesartan 150 mg daily at home and this is been held in light of acute hypotension Resp: Acute hypoxemic respiratory failure Hemoptysis Tobacco abuse/ongoing Iatrogenic PTX status post chest tube placement [facility] 16/450/08/23/39, will increase FiO2 to 50% Obtain ABG Ventilator bundle Albuterol/ipratropium aerosols every 6 hours with albuterol aerosols every 2 hours as needed dyspnea Chest x-ray 12/01 worsening pneumonia/pulmonary edema. Chest tube in place at - 20cm Status post chest tube placement see documentation Status post bronchoscopy 11/29. No active bleeding. Small residual hemoptysis still noted some ET tube GI: Hypoalbuminemia Glucerna 1.5 goal 50 cc an hour Pantoprazole 40 mg IV daily for GI prophylaxis Docusate sodium/senna 1 tablet twice daily for bowel regimen : Méndez catheter has been placed for accurate I's and O's in a critically ill patient Patient is positive 3+ L, noted peripheral edema, possible pulmonary edema- Lasix 20 mg IV 1 dose today Endo: Insulin-dependent diabetes mellitus type 1 uncontrolled Diabetic ketoacidosis - resolved Originally, patient received 3 L normal saline in the ED along with 3 refills and bicarbonate, 1 ampule of calcium gluconate. Beta hydroxybutyrate cleared 4 Insulin pump was disconnected 11/28. According to sister Evelyn Obrien, patient had received a new insulin pump within the past 48 hours. She has no history of DKA in the past to her knowledge TSH 0.38 Holding insulin detemir 8 U BID DUE to hypoglycemia. Continue SSI Novulog medium protocol with accucheck every 4 hours maintain euglycemia Renal: Acute kidney injury with history of normal renal function likely secondary to severe dehydration Urine eosinophils negative Renal ultrasound revealed no medical renal disease. Serial BMP Heme: Leukocytosis Macrocytic anemia Monitor CBC daily. Follow trends ID: Pneumonia BC x2, UA (-) inf A/B negative Started on vancomycin and piperacillin/tazobactam day #3 4 S/P bronchoscopy with sample sent from left lower lobe 4 Sputum-gram negative rods MSK: PT eval and tx 1+ dependent edema FEN: Electrolyte abnormality Replace electrolytes as clinically indicated per protocol Monitor BMP Access Right IJ CVL day #2 placed 11/28 ED. Discontinued 4 this patient partially pulled out with StatLock in place. Will replace with left IJ CVL today 11/29 to current day #3 Right femoral arterial line day #3 placed 11/29 Prophylaxis -GI -pantoprazole -DVT -SCD/heparin subcu Critical Care: my billing statement This patient remains critically ill with one or more organ systems which are or may become a threat to life. I have spent in excess of my60 minutes discontinuously in the care and management of this patient. This time is exclusive of procedures, and includes, but is not limited to, evaluation of the patient, review of the medical record, discussions with family, consultants, nursing staff, or respiratory therapy, and documentation in the medical record. 11/30 Updated sister Evelyn Obrien at [phone]. She was concerned about the blood sugars. Stated that they were actually a little bit low at 80s. Will discontinue insulin detemir and keep on sliding scale insulin in the interim. Updated her on new findings of seizure activity on EEG with consultation neurology and new medications introduced including levetiracetam and midazolam drip. Discussed with her elevated troponin and seen by Dr. Ham. Patient remains and is critically ill in the ICU. She stated will call this afternoon for an update. Patient does have a mother who was involved. Physician Janice Alegria MD Dec 01, 2017 08:10
[2017-12-01] MEDS: SODIUM CHLOR 0.45% 1000 ML INJ 1,000 ML IV SCH (08:11)
[2017-12-01] MEDS ORDERED: FUROSEMIDE 20 MG/2 ML VIAL IV PUSH ONE (08:30)
--- NOTE | 2017-12-01 08:44 | MG ---
cc: Brijesh Neville MD EEG RECORD #[id number] Frontal sharp waves occurring. Facial twitching noted. Background theta and delta frequencies 20-50 microvolts. 0.5-2 Hz. The patient was given Versed followed by cessation of frontal dominant spike activity going into a burst suppression pattern. Some bursts of low-amplitude beta activity. Single lead EKG showing sinus rhythm. INTERPRETATION: Frontal dominant seizure activity, the first part of the recording with cessation after the administration of Versed. Clinical correlation. Brijesh Neville MD MG/TL , 08:32 AM , 08:43 AM
[2017-12-01] MEDS: ARTIFICIAL TEARS OPTH SOLN 15 ML BTL EACH EYE SCH ×3 (09:00→18:27)
[2017-12-01] MEDS: MULTIVITAMIN TAB PO SCH (09:22)
[2017-12-01] MEDS: ASPIRIN 81 MG CHEW TAB CHEW SCH (09:22)
[2017-12-01] MEDS: DOCUSATE SODIUM 50 MG/SENNA 8.6 MG TAB PO SCH ×2 (09:22→19:54)
[2017-12-01] MEDS: FOSPHENYTOIN SODIUM 100 MG PE/2 ML VIAL IV SCH ×2 (09:32→19:50)
[2017-12-01] MEDS: levETIRAcetam INJ 500 MG in SODIUM CHLORIDE 0.9% INJ 100 ML IV SCH ×2 (09:33→19:52)
[2017-12-01] MEDS: THIAMINE INJ 100 MG in SODIUM CHLORIDE 0.9% INJ 100 ML IV SCH (09:33)
[2017-12-01] MEDS: CHLORHEXIDINE 0.12% (ORAL KIT) 15 ML CUP MT SCH ×2 (09:33→19:55)
[2017-12-01] MEDS: SODIUM CHLORIDE 0.9% FLUSH 10 ML FLUSH IV FLUSH SCH ×3 (09:34→19:54)
[2017-12-01] MEDS: MIDAZOLAM 100 MG/100 ML INJ 100 ML IV PRN (09:44)
[2017-12-01] MEDS ORDERED: CALCIUM GLUCONATE INJ 2 GM in SODIUM CHLORIDE 0.9% INJ 100 ML IV ONE (10:00)
[2017-12-01] MEDS ORDERED: NOREPINEPHRINE INJ 8 MG in SODIUM CHLOR 0.9% 250 ML INJ 242 ML IV PRN (10:00)
[2017-12-01] MEDS: fentaNYL DRIP 250 ML IV PRN (10:12)
[2017-12-01] MEDS: POTASSIUM PHOSPHATE INJ 30 MMOL in SODIUM CHLOR 0.9% 250 ML INJ 250 ML IV PRN (12:05)
--- NOTE | 2017-12-01 12:30 | HHI.PR ---
Review/Management Diagnosis/Plan: (1) Seizure cerebral ICD Codes: I67.89 - Other cerebrovascular disease Status: Acute Plan: likely metabolic sz's eeg- frontal sharps recs iv cerebryx/keppra. phb added on pressors correct calcium f/u eeg check csf prognosis guarded (2) Encephalopathy, metabolic ICD Codes: G93.41 - Metabolic encephalopathy Status: Acute Plan: 2/2 dka, renal failure, post-sz activity (3) DKA (diabetic ketoacidoses) ICD Codes: E13.10 - Other specified diabetes mellitus with ketoacidosis without coma Status: Acute Plan: per ccm (4) Acute renal failure ICD Codes: N17.9 - Acute kidney failure, unspecified Status: Acute Plan: hydration/per ccm Subjective Subjective Comments No acute events reported Active Medications Current Medications Medications (Trade) Dose Ordered Sig/Kenna Route Start Time Stop Time Status Last Admin (NS Flush) 2 ml UNSCH PRN IV FLUSH 11/28/17 16:00 (NS Flush) 2 ml BID IV FLUSH 11/28/17 21:00 12/01/17 09:34 (Tears Naturale Opth Soln) 1 drop TID EACH EYE 11/28/17 18:00 12/01/17 09:00 (Duoneb Neb) 1 ampule Q6HR NEB INH 11/28/17 16:00 12/01/17 10:14 (Albuterol Neb) 2.5 mg Q2HR NEB PRN INH 11/28/17 16:00 (Chlorhexidine 2% Cloth) 3 pack UNSCH PRN TOP 11/28/17 16:00 Future Hold (Marcie-Colace) 1 tab BID PO 11/28/17 21:00 12/01/17 09:22 (Milk Of Magnesia Liq) 30 ml Q12H PRN PO 11/28/17 16:00 (Senokot) 17.2 mg Q12H PRN PO 11/28/17 16:00 (Dulcolax Supp) 10 mg DAILY PRN RECTAL 11/28/17 16:00 (Lactulose Liq) 30 ml DAILY PRN PO 11/28/17 16:00 (Zofran Inj) 4 mg Q6H PRN IV PUSH 11/28/17 16:15 (Heparin Inj) 5,000 units Q8H SQ 11/28/17 18:00 Future Hold 4/13/18 01:31 Miscellaneous Information 1 Q361D XX 11/28/17 16:15 11/28/17 16:15 (Chlorhexidine 2% Cloth) 3 pack Taper DAILY@04 TOP 11/29/17 04:00 11/25/18 03:59 12/01/17 04:00 (Chlorhexidine 2% Cloth) 3 pack UNSCH PRN TOP 11/28/17 16:15 Phenylephrine HCl 160 mg/Dextrose 500 ml @ 7.5 mls/hr TITRATE PRN IV 11/28/17 17:00 11/29/17 22:55 (Brethine Inj) 1 mg UNSCH PRN SQ 11/28/17 17:00 (Flonase Willem Spr) 1 spray BID EACH NARE 11/28/17 21:00 Future Hold (Theragran) 1 tab DAILY PO 11/29/17 09:00 12/01/17 09:22 Thiamine HCl 100 mg/Sodium Chloride 101 ml @ 101 mls/hr DAILY IV 11/29/17 09:00 12/01/17 09:33 (D50w (Vial) Inj) 50 ml UNSCH PRN IV PUSH 11/29/17 07:15 11/30/17 07:11 (Glucagon Inj) 1 mg UNSCH PRN OTHER 11/29/17 07:15 (Levemir Inj) 8 units BID SQ 11/29/17 09:00 Future Hold 11/29/17 22:11 Pharmacy Profile Note 0 ml @ 0 mls/hr UNSCH OTHER 11/29/17 07:15 Piperacillin Sod/ Tazobactam Sod 100 ml @ 200 mls/hr Q6H IV 11/29/17 09:00 12/01/17 11:00 Potassium Chloride 100 ml @ 50 mls/hr Q2H PRN IV 11/29/17 07:15 Potassium Chloride 100 ml @ 50 mls/hr Q2H PRN IV 11/29/17 07:15 (K-Lyte Cl Eff) 50 meq UNSCH PRN PO 11/29/17 07:15 Potassium Chloride 100 ml @ 25 mls/hr UNSCH PRN IV 11/29/17 07:15 Potassium Chloride 100 ml @ 50 mls/hr Q2H PRN IV 11/29/17 07:15 Magnesium Sulfate 4 gm/Sodium Chloride 100 ml @ 50 mls/hr UNSCH PRN IV 11/29/17 07:15 (Mag-Ox) 800 mg UNSCH PRN PO 11/29/17 07:15 Magnesium Sulfate 2 gm/Sodium Chloride 100 ml @ 50 mls/hr UNSCH PRN IV 11/29/17 07:15 (K-Phos) 2,000 mg Q4H PRN PO 11/29/17 07:15 Sodium Phosphate 30 mmol/Sodium Chloride 250 ml @ 42 mls/hr UNSCH PRN IV 11/29/17 07:15 11/30/17 05:30 (K-Phos) 2,000 mg UNSCH PRN PO/TUBE 11/29/17 07:15 Potassium Phosphate 30 mmol/ Sodium Chloride 260 ml @ 42 mls/hr UNSCH PRN IV 11/29/17 07:15 12/01/17 12:05 (Peridex 0.12% Liq) 15 ml BID@08,20 MT 11/29/17 08:00 12/01/17 09:33 Miscellaneous Information SPECIFIC LAB TO BE ... ONCE ONCE .XX 12/02/17 08:45 12/02/17 08:46 (Tylenol 650 Mg/ 20 ml Liq) 650 mg Q6H PRN NG 11/29/17 10:00 11/30/17 16:47 (Brethine Inj) 1 mg UNSCH PRN SQ 11/29/17 10:00 (NovoLOG SUPPLEMENTAL SCALE) 1 Q4HR SQ 11/29/17 12:00 12/01/17 12:04 (NS Flush) DAILY IV FLUSH 11/30/17 09:00 12/01/17 09:34 (NS Flush) UNSCH PRN IV FLUSH 11/29/17 11:15 (Aspirin Chew) 81 mg DAILY CHEW 11/30/17 09:00 12/01/17 09:22 (Lipitor) 10 mg HS PO 11/29/17 21:00 11/30/17 20:10 (Protonix Inj) 40 mg DAILY@2100 IV PUSH 11/29/17 21:00 11/30/17 20:10 Sodium Chloride 1,000 ml @ 30 mls/hr Q24H IV 11/29/17 23:00 Future Hold 12/01/17 08:11 Levetriacetam 500 mg/Sodium Chloride 105 ml @ 420 mls/hr Q12HR IV 11/30/17 09:00 12/01/17 09:33 Vasopressin 40 units/Dextrose 100 ml @ 6 mls/hr [id number] IV 11/30/17 07:00 12/01/17 02:18 (Cerebyx Inj) 200 mgpe Q12HR IV 11/30/17 21:00 12/01/17 09:32 Vancomycin HCl 600 mg/Sodium Chloride 256 ml @ 250 mls/hr Q12H IV 11/30/17 21:00 11/30/17 20:07 Fentanyl Citrate 250 ml @ 5 mls/hr TITRATE PRN IV 12/01/17 08:15 12/01/17 10:12 Midazolam HCl 100 ml @ 2 mls/hr TITRATE PRN IV 12/01/17 08:15 12/01/17 09:44 Norepinephrine Bitartrate 8 mg/ Sodium Chloride 250 ml @ 5.62 mls/hr TITRATE PRN IV 12/01/17 10:00 12/01/17 10:30 (Luminal Inj) 65 mg Q8HR IM 12/01/17 14:00 Allergies Allergies Coded Allergies No Known Allergies (Unverified Allergy, Unknown, 11/28/17) Review of Systems All other ROS: Unable to obtain Exam I&O / VS Vital Signs Date Time Temp Pulse Resp B/P (MAP) Pulse Ox O2 Delivery O2 Flow Rate FiO2 12/01/17 10:33 98 50 12/01/17 10:30 82 98/66 12/01/17 08:52 94 50 12/01/17 08:21 98.0 12/01/17 07:34 95 40 12/01/17 06:06 86 126/58 12/01/17 06:06 86 126/58 12/01/17 06:06 86 126/58 12/01/17 06:01 82 12/01/17 06:01 82 16 119/71 (87) 97 132/60 (84) 12/01/17 05:46 84 12/01/17 05:46 84 17 125/70 (88) 97 132/60 (84) 12/01/17 05:31 78 12/01/17 05:31 78 15 130/56 (80) 96 12/01/17 05:01 86 16 121/72 (88) 99 132/60 (84) 12/01/17 04:45 86 17 125/70 (88) 97 134/60 (84) 12/01/17 04:30 80 16 115/65 (82) 95 126/56 (79) 12/01/17 04:15 84 16 120/71 (87) 97 130/58 (82) 12/01/17 04:06 96 40 12/01/17 04:00 82 12/01/17 04:00 40 12/01/17 04:00 99.5 82 15 118/71 (87) 96 130/58 (82) 12/01/17 03:45 96 20 123/73 (90) 99 122/58 (79) 12/01/17 03:30 88 17 114/66 (82) 96 124/58 (80) 12/01/17 03:15 82 17 114/70 (85) 99 116/52 (73) 12/01/17 02:45 84 16 98/64 (75) 96 64/58 (60) 12/01/17 02:18 74 102/68 12/01/17 02:00 88 16 112/54 (73) 95 12/01/17 02:00 88 12/01/17 01:45 84 16 106/50 (68) 94 12/01/17 01:30 88 17 108/54 (72) 99 12/01/17 01:21 96 40 12/01/17 01:15 86 15 110/52 (71) 91 12/01/17 01:00 82 15 88/76 (80) 92 12/01/17 00:45 84 15 92/76 (81) 93 12/01/17 00:30 88 16 94/76 (82) 97 12/01/17 00:15 88 16 106/76 (86) 96 12/01/17 00:00 40 12/01/17 00:00 99.7 84 16 104/80 (88) 93 12/01/17 00:00 84 11/30/17 23:24 90 118/58 11/30/17 23:00 84 16 110/54 (72) 94 11/30/17 22:23 100 40 11/30/17 22:00 86 11/30/17 22:00 86 16 110/56 (74) 98 11/30/17 21:56 88 102/52 11/30/17 21:56 88 102/52 11/30/17 21:15 86 18 97/58 (71) 91 108/56 (73) 11/30/17 21:00 82 16 112/56 (74) 95 11/30/17 20:00 99.0 84 16 118/60 (79) 100 11/30/17 20:00 100 Mechanical Ventilator 11/30/17 20:00 40 11/30/17 20:00 100 40 11/30/17 20:00 84 11/30/17 19:00 84 17 120/58 (78) 97 11/30/17 18:00 102 11/30/17 18:00 99.8 102 16 116/56 (76) 99 11/30/17 17:30 99 100 11/30/17 17:00 86 16 112/62 (79) 95 11/30/17 16:45 96 40 11/30/17 16:00 88 11/30/17 16:00 40 11/30/17 16:00 100.7 88 16 116/82 (93) 100 11/30/17 15:00 92 16 108/66 (80) 100 11/30/17 14:00 99 40 11/30/17 14:00 92 15 106/58 (74) 99 11/30/17 14:00 40 11/30/17 14:00 92 11/30/17 13:26 96 116/64 11/30/17 13:00 99.2 96 28 118/66 (83) 94 Exam Comments intubated. on propofol, fentanyl, versed gtts. coma state, partially opens eyes , not following, ou 3-2.5mm, no gaze deviation, face sym, no jerking, no ext movements Objective Micro and Labs Laboratory Tests Test 11/30/17 16:25 11/30/17 19:30 12/01/17 05:17 12/01/17 10:15 Blood Urea Nitrogen 11 13 Creatinine 0.59 0.60 Random Glucose 236 219 Total Protein 4.8 4.9 Calcium Level 6.5 6.3 Phosphorus Level 1.5 1.0 Magnesium Level 2.1 2.0 Sodium Level 143 138 Potassium Level 4.0 3.5 Chloride Level 112 105 Carbon Dioxide Level 23.5 25.3 Anion Gap 8 8 Estimat Glomerular Filtration Rate 103 101 Protein Corrected Calcium 7.6 7.4 Phenytoin (Dilantin) Level 13.1 12.4 Lactic Acid Level 2.1 1.9 White Blood Count 16.0 Red Blood Count 2.96 Hemoglobin 9.6 Hematocrit 28.2 Mean Corpuscular Volume 95.4 Mean Corpuscular Hemoglobin 32.6 Mean Corpuscular Hemoglobin Concent 34.2 Red Cell Distribution Width 13.0 Platelet Count 141 Mean Platelet Volume 7.6 Neutrophils (%) (Auto) 89.8 Lymphocytes (%) (Auto) 7.7 Monocytes (%) (Auto) 2.2 Eosinophils (%) (Auto) 0.1 Basophils (%) (Auto) 0.2 Neutrophils # (Auto) 14.4 Lymphocytes # (Auto) 1.2 Monocytes # (Auto) 0.4 Eosinophils # (Auto) 0.0 Basophils # (Auto) 0.0 CBC Comment AUTO DIFF Differential Total Cells Counted 100 Neutrophils % (Manual) 79 Band Neutrophils % 12 Lymphocytes % 8 Monocytes % 1 Neutrophils # (Manual) 14.6 Differential Comment FINAL DIFF MANUAL Platelet Estimate LOW Platelet Morphology Comment NORMAL Red Cell Morphology Comment NORMAL Albumin 2.1 Alkaline Phosphatase 77 Aspartate Amino Transf (AST/SGOT) 74 Alanine Aminotransferase (ALT/SGPT) 48 Total Bilirubin 0.7 Blood Gas Puncture Site ART LINE Blood Gas Patient Temperature 37.0 Blood Gas HCO3 25 Blood Gas Base Excess 2.4 Blood Gas Oxygen Saturation 98 Arterial Blood pH 7.53 Arterial Blood Partial Pressure CO2 30 Arterial Blood Partial Pressure O2 162 Arterial Blood Oxygen Content 12.3 Arterial Blood Carboxyhemoglobin 1.2 Arterial Blood Methemoglobin 0.9 Blood Gas Hemoglobin 8.7 Oxygen Delivery Device VENT PRVC/AC Blood Gas Ventilator Setting RR16/VT450/PEEP5 Blood Gas Inspired Oxygen 50 Date/Time Source Procedure Growth Status 11/28/17 18:55 Blood Peripheral Aerobic Blood Culture - Preliminary NO GROWTH IN 3 DAYS Resulted 11/28/17 18:55 Blood Peripheral Anaerobic Blood Culture - Preliminary NO GROWTH IN 3 DAYS Resulted 11/29/17 20:00 Nasal Aspirate Influenza Types A,B Antigen (KELY) - Final NEGATIVE FOR FLU A AND B ANTIGEN.... Complete 11/28/17 15:28 Urine Catheterized Urine Urine Culture - Final NO GROWTH IN 48 HOURS. Complete Problem Qualifiers (1) DKA (diabetic ketoacidoses): Qualified Codes: E10.11 - Type 1 diabetes mellitus with ketoacidosis with coma (2) Acute renal failure: Qualified Codes: N17.9 - Acute kidney failure, unspecified Brijesh Neville MD Dec 01, 2017 12:30
[2017-12-01] MEDS: VANCOMYCIN INJ 600 MG in SODIUM CHLOR 0.9% 250 ML INJ 250 ML IV SCH ×2 (12:42→19:53)
[2017-12-01 13:45] LABS: HEMOGLOBIN A1C 7.9 % (4.3-6.0)
[2017-12-01] MEDS: SODIUM CHLORIDE 0.9% IV SCH ×2 (13:58→22:07)
[2017-12-01] MEDS: ACYCLOVIR IV SCH ×2 (13:58→22:07)
--- NOTE | 2017-12-01 19:36 | MG ---
cc: Brijesh Neville MD EEG RECORD NUMBER: [id number] Frontal sharp waves, more prominent on the left side compared to the right, pseudoperiodic, 27 microvolts with underlying theta and delta frequencies. drive with photic stimulation. INTERPRETATION: Bursts of pseudoperiodic frontal sharps, more prominent on the left side. Good electroencephalogram variability and reactivity. Clinical correlation. MD LIGIA Rueda/LILLIAN , 07:08 PM , 07:34 PM [facility]ITALJane
[2017-12-01] MEDS: ATORVASTATIN 10 MG TAB PO SCH (19:52)
[2017-12-01] MEDS: PANTOPRAZOLE SODIUM 40 MG VIAL IV PUSH SCH (19:54)
[2017-12-02] VITALS (70 sets, daily range): BP systolic 80–156; BP diastolic 45–90; PULSE 78–98; RESP 15–29; TEMP 97.9–99.5; O2SAT 89–100
[2017-12-02] MEDS: INSULIN ASPART SUPPLEMENTAL SCALE SQ SCH ×6 (00:16→20:00)
[2017-12-02] MEDS: PIPERACIL-TAZO 4.5 GM PREMIX 100 ML IV SCH ×2 (02:33→09:00)
[2017-12-02] MEDS: CHLORHEXIDINE GLUCONATE 2 % 1 PACK (2 CLOTHS) TOP SCH (03:28)
[2017-12-02] MEDS: RESP: ALBUTEROL 2.5 MG/IPRATROPIUM 0.5 MG NEB (SCH) INH ×2 (04:00→08:47)
--- NOTE | 2017-12-02 04:53 | RADRPT ---
EXAM DATE/TIME: 12/02/2017 04:17 [facility] COMPARISON: CHEST SINGLE AP, December 01, 2017, 3:56. INDICATIONS : Respiratory status. MEDICAL HISTORY : Diabetes mellitus type I. SURGICAL HISTORY : None. ENCOUNTER: Initial ACUITY: 1 day PAIN SCORE: Non-responsive. LOCATION: Bilateral upper chest FINDINGS: Basilar consolidation and small moderate pleural effusions again noted, not significantly changed. Ri ght chest tube remains in place. Endotracheal tube tip is approximately 3 cm above the kera. There is a nasogastric tube coiled in t he stomach. There is a left internal jugular central venous catheter with tip in the superior vena ca va. CONCLUSION: No significant change. Uziel Murry MD on December 02, 2017 at 4:51 Board Certified Radiologist. This report was verified electronically.
[2017-12-02 05:05] LABS: AUTOMATED NEUTROPHIL # 11.4 TH/MM3 (1.8-7.7); BASOPHIL # 0.3 TH/MM3 (0-0.2); BASOPHIL % 2.3 % (0.0-2.0); EOSINOPHIL # 0.1 TH/MM3 (0-0.4); EOSINOPHIL % 0.7 % (0.0-4.0); HEMATOCRIT 27.9 % (35.0-46.0); HEMOGLOBIN 9.2 GM/DL (11.6-15.3); LYMPH % 13.2 % (9.0-44.0); LYMPHOCYTE # 1.9 TH/MM3 (1.0-4.8); MEAN CORPUSCULAR HEMOGLOBIN 31.8 PG (27.0-34.0); MEAN CORPUSCULAR HGB CONC 33.1 % (32.0-36.0); MEAN PLATELET VOLUME 7.8 FL (7.0-11.0); MONO % 5.4 % (0.0-8.0); MONOCYTE # 0.8 TH/MM3 (0-0.9); NEUT % 78.4 % (16.0-70.0); PLATELET COUNT 143 TH/MM3 (150-450); RED CELL DISTRIBUTION WIDTH 13.1 % (11.6-17.2); WHITE BLOOD COUNT 14.5 TH/MM3 (4.0-11.0)
[2017-12-02 05:12] LABS: PROTHROMBIN TIME - PATIENT 9.8 SEC (9.8-11.6)
[2017-12-02] MEDS: ACYCLOVIR IV SCH ×3 (05:28→22:15)
[2017-12-02] MEDS: SODIUM CHLORIDE 0.9% IV SCH ×3 (05:28→22:15)
[2017-12-02 05:58] LABS: ALBUMIN 1.9 GM/DL (3.4-5.0); BICARBONATE 24.6 MEQ/L (21.0-32.0); CALCIUM 6.9 MG/DL (8.5-10.1); CREATININE 0.46 MG/DL (0.50-1.00); DIRECT BILIRUBIN ADULT 0.2 MG/DL (0.0-0.2); PHENYTOIN (DILANTIN) 15.7 MCG/ML (10.0-20.0); TOTAL BILIRUBIN ADULT 0.6 MG/DL (0.2-1.0)
[2017-12-02 06:10] LABS: BANDS 5 % (0-6); LYMPHOCYTES 13 % (9-44); MONOCYTES 3 % (0-8); POLYS (SEG NEUTROPHILS) 78 % (16-70)
--- NOTE | 2017-12-02 07:02 | HHI.CCPN ---
Subjective Remarks/Hospital Course This is a 51-year-old female. Date of admission 11/28/2017. Past medical history includes diabetes mellitus type 1 uncontrolled insulin- dependent with retinopathy on home insulin pump, hypertension, allergic rhinitis and chronic benzodiazepine use. She also has history of breast cancer on raloxifene she originally presented to [facility] ED During the workup, patient was noted to have a blood sugar of 808. Elevated acetone. Sodium 135. Potassium 6.0. Ferritin 2.1. Leukocytosis 25,000. Macrocytic anemia. UA negative for infectious etiology. She was bolused with 3 L of 0.9% NaCl IV fluid bolus. She is received 3 ampules of sodium bicarbonate and 1 g calcium gluconate. Chest x-ray post procedure revealed the CT scan of the head is read by the radiologist as ventriculomegaly but otherwise no acute findings. 11/29: Patient had nonrebreather off all night. PTX now 8 mm. Yells "Help me " "I don't know" Gap has closed, will transition back to SQ insulin if able to pass swallow. Replacing lytes. SUBJECTIVE: 11/30: Patient opens eyes to voice. Leftward gaze. Frequent blinking. Withdraws to stimulation bilateral lower extremities. T-max 99.5. Remains on norepinephrine and phenylephrine drips. MRI brain revealed ventriculomegaly. No acute signs of CVA. Echocardiogram EF 40%. 12/01: Afebrile. Patient remains off sedation approximately 24 hours nonresponsive. EEG in process. BAL revealed gram-negative rods the patient continues on Zosyn. The patient remains on vasopressors norepinephrine, vasopressin, and phenylephrine. Versed infusion restarted secondary to seizure activity noted on repeat EEG this a.m.. 12/02: Afebrile. The patient is scheduled for lumbar puncture this a.m., INR 1.0 patient has been off subcu heparin approximately 3 days. The patient continues on Versed and fentanyl infusions to maintain ventilator synchrony and avoidance of subclinical seizures which were noted on the EEG yesterday. The patient continues on multiple vasopressors to include norepinephrine and phenylephrine and vasopressin. Vasopressin currently being weaned off. The patient continues to have persistent leukocytosis though it is slightly downtrending plan for ID consult today appreciate recommendations. Bronchial washings resulted E. coli, currently patient continues on Zosyn. Patient was noted to have a positive fluid balance yesterday the patient received 20 mg of Lasix with adequate diuresis the patient noted to have a sodium level slightly decreased at 135 IV fluids mixed in 0.9 normal saline. Objective Vital Signs Date Time Temp Pulse Resp B/P (MAP) Pulse Ox O2 Delivery O2 Flow Rate FiO2 12/02/17 06:21 84 136/64 12/02/17 06:00 16 100 12/02/17 04:15 50 12/02/17 04:00 98.2 12/01/17 20:02 Mechanical Ventilator 11/29/17 07:00 2.00 Intake and Output 12/02/17 12/02/17 12/03/17 08:00 16:00 00:00 Intake Total 100 ml Balance 100 ml Result Diagram: 12/02/17 0410 12/02/17 0410 Other Results Microbiology Date/Time Source Procedure Growth Status 11/29/17 20:00 Nasal Aspirate Influenza Types A,B Antigen (KELY) - Final NEGATIVE FOR FLU A AND B ANTIGEN.... Complete 11/29/17 10:30 Bronchial Washings Left Lower Lobe Gram Stain - Final Complete 11/29/17 10:30 Bronchial Culture - Final Escherichia Coli Complete Laboratory Tests Test 12/01/17 10:15 Blood Gas Puncture Site ART LINE Blood Gas Patient Temperature 37.0 Blood Gas HCO3 25 mmol/L (22-26) Blood Gas Base Excess 2.4 mmol/L (-2-2) Blood Gas Oxygen Saturation 98 % (90-100) Arterial Blood pH 7.53 (7.380-7.420) Arterial Blood Partial Pressure CO2 30 mmHg (38-42) Arterial Blood Partial Pressure O2 162 mmHg (61-120) Arterial Blood Oxygen Content 12.3 Vol % (12.0-20.0) Arterial Blood Carboxyhemoglobin 1.2 % (0-4) Arterial Blood Methemoglobin 0.9 % (0-2) Blood Gas Hemoglobin 8.7 G/DL (12.0-16.0) Oxygen Delivery Device VENT PRVC/AC Blood Gas Ventilator Setting RR16/VT450/PEEP5 Blood Gas Inspired Oxygen 50 % Imaging Last Impressions Chest X-Ray 12/02/17 0400 Signed Impressions: Service Date/Time: Saturday, December 02, 2017 04:17 - CONCLUSION: No significant change. Uziel Murry MD Renal Ultrasound [id number] Signed Impressions: Service Date/Time: Wednesday, November 29, 2017 13:16 - CONCLUSION: 1. Both kidneys are sonographically normal without hydronephrosis or nephrolithiasis. 2. Very abnormal appearance of the gallbladder with mural thickening and minimal pericholecystic fluid Dani Titus MD Brain MRI 11/29/17 0000 Signed Impressions: Service Date/Time: Wednesday, November 29, 2017 13:27 - CONCLUSION: 1. Mild diffuse ventriculomegaly. Clinical correlation for normal pressure hydrocephalus is recommended. 2. Repa-pb-btjryrbf periventricular small vessel ischemic white matter demyelination, out of proportion for age. Aly Leigh MD Head CT 11/28/17 0000 Signed Impressions: Service Date/Time: November 15:46 - CONCLUSION: 1. Ventriculomegaly suggesting central cerebral atrophy versus hydrocephalus. Clinical correlation is recommended. 2. No acute infarct, acute hemorrhage, midline shift or extra-axial fluid collections. Dev Christpoher MD Last Impressions Chest X-Ray 12/01/17 0600 Signed Impressions: Service Date/Time: Friday, December 01, 2017 03:56 - CONCLUSION: 1. Patchy alveolar disease characteristic of edema or pneumonia. There has been no significant change when compared to the prior exam. Patrick Hamm MD Renal Ultrasound [id number] Signed Impressions: Service Date/Time: Wednesday, November 29, 2017 13:16 - CONCLUSION: 1. Both kidneys are sonographically normal without hydronephrosis or nephrolithiasis. 2. Very abnormal appearance of the gallbladder with mural thickening and minimal pericholecystic fluid Dani Titus MD Brain MRI 11/29/17 0000 Signed Impressions: Service Date/Time: Wednesday, November 29, 2017 13:27 - CONCLUSION: 1. Mild diffuse ventriculomegaly. Clinical correlation for normal pressure hydrocephalus is recommended. 2. Jvme-bk-didaimut periventricular small vessel ischemic white matter demyelination, out of proportion for age. Aly Leigh MD Head CT 11/28/17 0000 Signed Impressions: Service Date/Time: November 15:46 - CONCLUSION: 1. Ventriculomegaly suggesting central cerebral atrophy versus hydrocephalus. Clinical correlation is recommended. 2. No acute infarct, acute hemorrhage, midline shift or extra-axial fluid collections. Dev Christopher MD Last Impressions Renal Ultrasound 11/29/17 1656 Signed Impressions: Service Date/Time: Wednesday, November 29, 2017 13:16 - CONCLUSION: 1. Both kidneys are sonographically normal without hydronephrosis or nephrolithiasis. 2. Very abnormal appearance of the gallbladder with mural thickening and minimal pericholecystic fluid Dani Titus MD Chest X-Ray 11/29/17 1102 Signed Impressions: Service Date/Time: Wednesday, November 29, 2017 11:03 - CONCLUSION: Line in good position.. Ousmane Bird MD FACR Brain MRI 11/29/17 0000 Signed Impressions: Service Date/Time: Wednesday, November 29, 2017 13:27 - CONCLUSION: 1. Mild diffuse ventriculomegaly. Clinical correlation for normal pressure hydrocephalus is recommended. 2. Fvob-xu-oerijljv periventricular small vessel ischemic white matter demyelination, out of proportion for age. Aly Leigh MD Head CT 11/28/17 0000 Signed Impressions: Service Date/Time: November 15:46 - CONCLUSION: 1. Ventriculomegaly suggesting central cerebral atrophy versus hydrocephalus. Clinical correlation is recommended. 2. No acute infarct, acute hemorrhage, midline shift or extra-axial fluid collections. Dev Christopher MD Procedures 12/02-planned lumbar puncture Objective Remarks GENERAL: 61-year-old female critically ill currently orotracheally intubated SKIN: Warm and dry. No rash HEAD: Atraumatic. Normocephalic. EYES: Pupils equal and round about 2 mm bilaterally reactive. No scleral icterus. No injection, some yellowish drainage noted left eye. Bilateral scleral edema ENT: No nasal bleeding or discharge. Mucous membranes pink and moist NECK: Trachea midline. No JVD. Left IJ CVL is clean dry and intact CARDIOVASCULAR: RRR. S1, S2 no S4.. No murmur RESPIRATORY: Essentially clear to auscultation bilaterally without wheezes rales or rhonchi. Right chest tube with minimal sanguinous output -20 cm H2O GASTROINTESTINAL: Abdomen soft, non-tender, nondistended. Hyperactive bowel sounds appreciated MUSCULOSKELETAL: Extremities with trace upper and lower extremity edema. NEUROLOGICAL: On Versed and fentanyl infusion positive cough and gag. Upward toes. Withdraws bilateral lower extremities. Date of Insertion: Nov 28, 2017 Line: Central Venous Catheter Side: Left Location: Internal, Jugular A/P Assessment and Plan Neuro/Psych: Acute encephalopathy secondary to diabetic ketoacidosis Anxiety disorder NOS Benzodiazepine use Possible eye infection Patient is written for propofol/fentanyl drips for sedation/analgesia while intubated. Continued on Midazolam infusion Goal of RASS 0 Daily sedation vacation-when cleared by neurology Dr. Neville Acetaminophen 650 mg by tube every 6 hours as needed fever CT brain 11/28 revealed Ventriculomegaly suggesting central cerebral atrophy versus hydrocephalus. Clinical correlation is recommended. No acute infarct, acute hemorrhage, midline shift or extra-axial fluid collections. She is on amitriptyline 10 mg daily at home. This has been held UDS negative MRI brain 11/29 revealed mild to moderate ventriculomegaly. EEG ordered 11/29. Repeat EEG 12/01- active seizures 11/30 levetiracetam 500 mg IV every 12 hours after 1 g bolus Neurology following 12/02 Small amount yellowish serous drainage OU, right greater than left- ophthalmology consulted 12/02-plan for lumbar puncture today CV: History of hypertension Shock Elevated troponin Acute systolic heart failure ejection fraction 40% NSTEMI cardiomyopathy 12/01 Decreased 1/2 NS at 75 cc/hr CVP - 9 Phenylephrine drip and norepinephrine drip to maintain mean arterial pressure greater than equal to 65. Currently at 100 mcg/min and 9 mcg/min respectively. Attempt to wean down the phenylephrine drip off 12/02-vasopressin 0.04 units/hour weaned off Cardiology/Dr. Ham following Started on atorvastatin 10 mg by tube daily Continue aspirin 81 mg by tube daily 2D echocardiogram revealed EF around 40%. LV increased size. Septal hypokinesis. Repeat troponin the same decreased to 2.8 Patient is on irbesartan 150 mg daily at home and this is been held in light of acute hypotension Resp: Acute hypoxemic respiratory failure Hemoptysis-resolved Tobacco abuse/ongoing Iatrogenic PTX status post chest tube placement [facility] 16/450/08/23/39, will increase FiO2 to 50% 11/22 CXR-basilar consolidation small- moderate pleural effusion Ventilator bundle Albuterol/ipratropium aerosols every 6 hours with albuterol aerosols every 2 hours as needed dyspnea Right chest tube in place at -20cm, no air leak 11/29 Status post chest tube placement see documentation Status post bronchoscopy 11/29. GI: Hypoalbuminemia Glucerna 1.5 goal 50 cc an hour-minimal residual Pantoprazole 40 mg IV daily for GI prophylaxis Docusate sodium/senna 1 tablet twice daily for bowel regimen : Méndez catheter has been placed for accurate I's and O's in a critically ill patient 12/01 Lasix 20 mg IV 1 dose Endo: Insulin-dependent diabetes mellitus type 1 uncontrolled Diabetic ketoacidosis - resolved Originally, patient received 3 L normal saline in the ED along with 3 refills and bicarbonate, 1 ampule of calcium gluconate. Beta hydroxybutyrate cleared 11/29 Insulin pump was disconnected 11/28. According to sister Evelyn Obrien, patient had received a new insulin pump within the past 48 hours. She has no history of DKA in the past to her knowledge TSH 0.38 Holding insulin detemir 8 U BID DUE to hypoglycemia. Continue SSI Novulog medium protocol with accucheck every 4 hours maintain euglycemia Renal: Acute kidney injury with history of normal renal function likely secondary to severe dehydration Urine eosinophils negative Renal ultrasound revealed no medical renal disease. Serial BMP Heme: Leukocytosis Macrocytic anemia Monitor CBC daily. Follow trends ID: Pneumonia Persistent leukocytosis BC x2, UA (-) inf A/B negative Started on vancomycin and piperacillin/tazobactam day #4 11/29 S/P bronchoscopy with sample sent from left lower lobe 11/29 Sputum (BAL)-gram negative rods Noted yellowish drainage bilateral eyes right greater than left-ophthalmology consulted ID consulted [id number] lumbar puncture MSK: PT eval and tx 1+ dependent edema FEN: Electrolyte abnormality Replace electrolytes as clinically indicated per protocol Monitor BMP Sodium level 135-all IV fluids mixed with 0.9 NS Access Right IJ CVL day #2 placed 11/28 ED. Discontinued 11/29 this patient partially pulled out with StatLock in place. Will replace with left IJ CVL today 11/29 to current day #4 Right femoral arterial line day #3 placed 11/29 Prophylaxis -GI -pantoprazole -DVT -SCD/ ( heparin SQ Critical Care: my billing statement This patient remains critically ill with one or more organ systems which are or may become a threat to life. I have spent in excess of my 30 minutes discontinuously in the care and management of this patient. This time is exclusive of procedures, and includes, but is not limited to, evaluation of the patient, review of the medical record, discussions with family, consultants, nursing staff, or respiratory therapy, and documentation in the medical record. 11/30 Updated sister Evelyn Obrien at [phone]. She was concerned about the blood sugars. Stated that they were actually a little bit low at 80s. Will discontinue insulin detemir and keep on sliding scale insulin in the interim. Updated her on new findings of seizure activity on EEG with consultation neurology and new medications introduced including levetiracetam and midazolam drip. Discussed with her elevated troponin and seen by Dr. Ham. Patient remains and is critically ill in the ICU. She stated will call this afternoon for an update. Patient does have a mother who was involved. 12/02 Telephoned Ms. Obrien [phone] and provided an update. All questions answered. Discussed with TREE TRIMMER HELPER (Harjinder) at bedside Physician Janice Alegria MD Dec 02, 2017 07:02
--- NOTE | 2017-12-02 07:51 | PD.CARD.PN ---
Subjective Subjective Remarks Per CCM, pt w/ sub-clinical sz by EEG; still intubated, on pressors but off vaso ; Objective Medications Current Medications Medications (Trade) Dose Ordered Sig/Kenna Route Start Time Stop Time Status Last Admin (NS Flush) 2 ml UNSCH PRN IV FLUSH 11/28/17 16:00 (NS Flush) 2 ml BID IV FLUSH 11/28/17 21:00 12/01/17 19:54 (Tears Naturale Opth Soln) 1 drop TID EACH EYE 11/28/17 18:00 12/01/17 18:27 (Duoneb Neb) 1 ampule Q6HR NEB INH 11/28/17 16:00 12/02/17 04:00 (Albuterol Neb) 2.5 mg Q2HR NEB PRN INH 11/28/17 16:00 (Chlorhexidine 2% Cloth) 3 pack UNSCH PRN TOP 11/28/17 16:00 Future Hold (Marcie-Colace) 1 tab BID PO 11/28/17 21:00 12/01/17 19:54 (Milk Of Magnesia Liq) 30 ml Q12H PRN PO 11/28/17 16:00 (Senokot) 17.2 mg Q12H PRN PO 11/28/17 16:00 (Dulcolax Supp) 10 mg DAILY PRN RECTAL 11/28/17 16:00 (Lactulose Liq) 30 ml DAILY PRN PO 11/28/17 16:00 (Zofran Inj) 4 mg Q6H PRN IV PUSH 11/28/17 16:15 (Heparin Inj) 5,000 units Q8H SQ 11/28/17 18:00 Future Hold 11/29/17 01:31 Miscellaneous Information 1 Q361D XX 11/28/17 16:15 11/28/17 16:15 (Chlorhexidine 2% Cloth) 3 pack Taper DAILY@04 TOP 11/29/17 04:00 11/25/18 03:59 12/02/17 03:28 (Chlorhexidine 2% Cloth) 3 pack UNSCH PRN TOP 11/28/17 16:15 (Brethine Inj) 1 mg UNSCH PRN SQ 11/28/17 17:00 (Flonase Willem Spr) 1 spray BID EACH NARE 11/28/17 21:00 Future Hold (Theragran) 1 tab DAILY PO 11/29/17 09:00 12/01/17 09:22 Thiamine HCl 100 mg/Sodium Chloride 101 ml @ 101 mls/hr DAILY IV 11/29/17 09:00 12/01/17 09:33 (D50w (Vial) Inj) 50 ml UNSCH PRN IV PUSH 11/29/17 07:15 11/30/17 07:11 (Glucagon Inj) 1 mg UNSCH PRN OTHER 11/29/17 07:15 (Levemir Inj) 8 units BID SQ 11/29/17 09:00 Future Hold 11/29/17 22:11 Pharmacy Profile Note 0 ml @ 0 mls/hr UNSCH OTHER 11/29/17 07:15 Piperacillin Sod/ Tazobactam Sod 100 ml @ 200 mls/hr Q6H IV 11/29/17 09:00 12/02/17 02:33 Potassium Chloride 100 ml @ 50 mls/hr Q2H PRN IV 11/29/17 07:15 Potassium Chloride 100 ml @ 50 mls/hr Q2H PRN IV 11/29/17 07:15 (K-Lyte Cl Eff) 50 meq UNSCH PRN PO 11/29/17 07:15 Potassium Chloride 100 ml @ 25 mls/hr UNSCH PRN IV 11/29/17 07:15 Potassium Chloride 100 ml @ 50 mls/hr Q2H PRN IV 11/29/17 07:15 Magnesium Sulfate 4 gm/Sodium Chloride 100 ml @ 50 mls/hr UNSCH PRN IV 11/29/17 07:15 (Mag-Ox) 800 mg UNSCH PRN PO 11/29/17 07:15 Magnesium Sulfate 2 gm/Sodium Chloride 100 ml @ 50 mls/hr UNSCH PRN IV 11/29/17 07:15 (K-Phos) 2,000 mg Q4H PRN PO 11/29/17 07:15 Sodium Phosphate 30 mmol/Sodium Chloride 250 ml @ 42 mls/hr UNSCH PRN IV 11/29/17 07:15 11/30/17 05:30 (K-Phos) 2,000 mg UNSCH PRN PO/TUBE 11/29/17 07:15 Potassium Phosphate 30 mmol/ Sodium Chloride 260 ml @ 42 mls/hr UNSCH PRN IV 11/29/17 07:15 12/01/17 12:05 (Peridex 0.12% Liq) 15 ml BID@08,20 MT 11/29/17 08:00 12/01/17 19:55 Miscellaneous Information SPECIFIC LAB TO BE ... ONCE ONCE .XX 12/02/17 08:45 12/02/17 08:46 (Tylenol 650 Mg/ 20 ml Liq) 650 mg Q6H PRN NG 11/29/17 10:00 11/30/17 16:47 (Brethine Inj) 1 mg UNSCH PRN SQ 11/29/17 10:00 (NovoLOG SUPPLEMENTAL SCALE) 1 Q4HR SQ 11/29/17 12:00 12/02/17 05:30 (NS Flush) DAILY IV FLUSH 11/30/17 09:00 12/01/17 09:34 (NS Flush) UNSCH PRN IV FLUSH 11/29/17 11:15 (Aspirin Chew) 81 mg DAILY CHEW 11/30/17 09:00 12/01/17 09:22 (Lipitor) 10 mg HS PO 11/29/17 21:00 12/01/17 19:52 (Protonix Inj) 40 mg DAILY@2100 IV PUSH 11/29/17 21:00 12/01/17 19:54 Sodium Chloride 1,000 ml @ 30 mls/hr Q24H IV 11/29/17 23:00 Future Hold 12/01/17 08:11 Levetriacetam 500 mg/Sodium Chloride 105 ml @ 420 mls/hr Q12HR IV 11/30/17 09:00 12/01/17 19:52 Vasopressin 40 units/Dextrose 100 ml @ 6 mls/hr [id number] IV 11/30/17 07:00 12/01/17 16:36 (Cerebyx Inj) 200 mgpe Q12HR IV 11/30/17 21:00 12/01/17 19:50 Vancomycin HCl 600 mg/Sodium Chloride 256 ml @ 250 mls/hr Q12H IV 11/30/17 21:00 12/01/17 19:53 Fentanyl Citrate 250 ml @ 5 mls/hr TITRATE PRN IV 12/01/17 08:15 12/01/17 10:12 Midazolam HCl 100 ml @ 2 mls/hr TITRATE PRN IV 12/01/17 08:15 12/01/17 09:44 Norepinephrine Bitartrate 8 mg/ Sodium Chloride 250 ml @ 5.62 mls/hr TITRATE PRN IV 12/01/17 10:00 12/01/17 10:30 (Luminal Inj) 65 mg Q8HR IM 12/01/17 14:00 12/02/17 05:29 Acyclovir Sodium 475 mg/Sodium Chloride 100 ml @ 100 mls/hr Q8H IV 12/01/17 14:00 12/02/17 05:28 Phenylephrine HCl 160 mg/Sodium Chloride 500 ml @ 7.5 mls/hr TITRATE PRN IV 12/02/17 08:00 Vital Signs / I&O Vital Signs Date Time Temp Pulse Resp B/P (MAP) Pulse Ox O2 Delivery O2 Flow Rate FiO2 12/02/17 07:15 100 50 12/02/17 06:21 84 136/64 12/02/17 06:00 84 140/64 (89) 12/02/17 06:00 84 12/02/17 06:00 84 16 117/67 (84) 100 140/64 (89) 12/02/17 06:00 84 140/64 12/02/17 05:45 84 16 109/61 (77) 100 130/60 (83) 12/02/17 05:30 84 16 96/72 (80) 100 126/60 (82) 12/02/17 05:28 86 124/58 12/02/17 05:15 92 29 109/57 (74) 89 112/50 (70) 12/02/17 05:00 82 15 106/65 (79) 100 124/56 (78) 12/02/17 05:00 82 124/56 12/02/17 04:45 84 16 112/68 (83) 100 12/02/17 04:30 84 15 108/65 (79) 100 106/90 (95) 12/02/17 04:15 100 50 12/02/17 04:15 82 15 116/70 (85) 100 12/02/17 04:00 98.2 84 16 102/63 (76) 99 118/70 (86) 12/02/17 04:00 50 12/02/17 04:00 84 118/70 (86) 12/02/17 04:00 84 12/02/17 03:45 82 15 101/62 (75) 99 118/62 (80) 12/02/17 03:20 82 16 116/62 (80) 97 12/02/17 03:15 82 15 99/63 (75) 96 118/62 (80) 12/02/17 03:01 80 15 89/55 (66) 97 90/60 (70) 12/02/17 03:00 84 12/02/17 02:59 84 88/62 12/02/17 02:45 84 16 104/60 (75) 97 12/02/17 02:33 84 102/58 12/02/17 02:30 84 15 100/58 (72) 100 12/02/17 02:15 84 16 104/58 (73) 100 12/02/17 02:01 86 17 90/59 (69) 100 92/54 (67) 12/02/17 02:00 84 12/02/17 02:00 84 16 96/60 (72) 98 12/02/17 02:00 84 16 96/60 (72) 98 12/02/17 01:45 86 15 104/56 (72) 100 12/02/17 01:30 100 50 12/02/17 01:30 86 16 110/56 (74) 100 12/02/17 01:15 84 16 114/56 (75) 98 12/02/17 01:00 84 16 106/64 (78) 97 122/60 (80) 12/02/17 00:15 82 15 114/62 (79) 100 12/02/17 00:01 80 15 98/60 (73) 99 98/56 (70) 12/02/17 00:00 50 12/02/17 00:00 80 12/02/17 00:00 97.9 80 15 100/58 (72) 99 12/01/17 23:45 80 16 94/62 (73) 100 12/01/17 23:30 80 15 110/58 (75) 100 12/01/17 23:15 80 15 118/60 (79) 100 12/01/17 23:00 80 15 96/60 (72) 100 112/60 (77) 12/01/17 22:45 100 50 12/01/17 22:44 82 16 107/63 (78) 100 124/62 (82) 12/01/17 22:00 80 12/01/17 22:00 80 16 124/62 (82) 100 12/01/17 21:44 80 16 101/65 (77) 100 122/60 (80) 12/01/17 21:00 82 15 89/56 (67) 98 110/56 (74) 12/01/17 20:22 80 16 97/63 (74) 95 120/58 (78) 12/01/17 20:17 78 15 109/67 (81) 94 128/62 (84) 12/01/17 20:02 98 Mechanical Ventilator 12/01/17 20:02 98.0 78 16 109/70 (83) 98 132/64 (86) 12/01/17 20:00 78 12/01/17 20:00 78 132/64 (86) 12/01/17 20:00 50 12/01/17 20:00 78 130/64 12/01/17 20:00 78 130/64 12/01/17 20:00 78 130/64 12/01/17 19:47 78 15 107/68 (81) 97 130/68 (88) 12/01/17 19:32 80 15 110/70 (83) 96 112/70 (84) 12/01/17 19:30 97 50 12/01/17 19:17 82 15 111/69 (83) 95 98/84 (89) 12/01/17 19:00 82 15 140/126 (131) 98 12/01/17 18:00 80 12/01/17 18:00 80 16 96/62 (73) 100 108/72 (84) 12/01/17 17:00 80 15 93/62 (72) 100 106/68 (81) 12/01/17 16:36 80 106/66 12/01/17 16:30 100 50 12/01/17 16:00 98.9 82 16 96/63 (74) 100 118/78 (91) 12/01/17 16:00 82 12/01/17 16:00 50 12/01/17 15:01 82 15 91/62 (72) 100 114/68 (83) 12/01/17 14:01 80 16 100/66 (77) 100 100/60 (73) 12/01/17 14:00 80 12/01/17 13:30 100 50 12/01/17 13:01 74 15 109/73 (85) 100 116/68 (84) 12/01/17 12:16 72 16 115/74 (88) 100 98/78 (85) 12/01/17 12:00 74 12/01/17 12:00 97.8 74 15 111/69 (83) 99 104/74 (84) 12/01/17 12:00 50 12/01/17 11:00 78 15 101/64 (76) 99 92/66 (75) 12/01/17 10:33 98 50 12/01/17 10:30 82 98/66 12/01/17 10:00 92 19 91/58 (69) 96 92/50 (64) 12/01/17 10:00 92 12/01/17 09:00 88 19 98/62 (74) 99 106/60 (75) 12/01/17 08:52 94 50 12/01/17 08:21 98.0 12/01/17 08:00 82 15 95/60 (72) 91 110/58 (75) 12/01/17 08:00 50 12/01/17 08:00 82 I/O 12/01/17 12/01/17 12/01/17 12/02/17 12/02/17 12/02/17 07:00 15:00 23:00 07:00 15:00 23:00 Intake Total 0 ml 50 ml 812 ml Output Total 300 ml 2600 ml 525 ml Balance -300 ml -2550 ml 287 ml Intake Oral 0 ml 0 ml 0 ml IV Total 50 ml 200 ml Tube Feeding 562 ml Tube Irrigant 50 ml Output Urine Total 300 ml 2600 ml 525 ml # Bowel Movements 0 1 1 Physical Exam GENERAL: Intubated, sedated CARDIOVASCULAR: Regular rate and rhythm without murmurs, gallops, or rubs. RESPIRATORY: Clear to auscultation. Breath sounds equal bilaterally. No wheezes , rales, or rhonchi. GASTROINTESTINAL: Abdomen soft, non-tender, nondistended. Normal active bowel sounds MUSCULOSKELETAL: Extremities without clubbing, cyanosis, or edema. NEURO: Intubated, sedated. Laboratory Laboratory Tests Test 12/01/17 10:15 12/02/17 04:10 Blood Gas Puncture Site ART LINE Blood Gas Patient Temperature 37.0 Blood Gas HCO3 25 mmol/L Blood Gas Base Excess 2.4 mmol/L Blood Gas Oxygen Saturation 98 % Arterial Blood pH 7.53 Arterial Blood Partial Pressure CO2 30 mmHg Arterial Blood Partial Pressure O2 162 mmHg Arterial Blood Oxygen Content 12.3 Vol % Arterial Blood Carboxyhemoglobin 1.2 % Arterial Blood Methemoglobin 0.9 % Blood Gas Hemoglobin 8.7 G/DL Oxygen Delivery Device VENT PRVC/AC Blood Gas Ventilator Setting RR16/VT450/PEEP5 Blood Gas Inspired Oxygen 50 % White Blood Count 14.5 TH/MM3 Red Blood Count 2.90 MIL/MM3 Hemoglobin 9.2 GM/DL Hematocrit 27.9 % Mean Corpuscular Volume 96.0 FL Mean Corpuscular Hemoglobin 31.8 PG Mean Corpuscular Hemoglobin Concent 33.1 % Red Cell Distribution Width 13.1 % Platelet Count 143 TH/MM3 Mean Platelet Volume 7.8 FL Neutrophils (%) (Auto) 78.4 % Lymphocytes (%) (Auto) 13.2 % Monocytes (%) (Auto) 5.4 % Eosinophils (%) (Auto) 0.7 % Basophils (%) (Auto) 2.3 % Neutrophils # (Auto) 11.4 TH/MM3 Lymphocytes # (Auto) 1.9 TH/MM3 Monocytes # (Auto) 0.8 TH/MM3 Eosinophils # (Auto) 0.1 TH/MM3 Basophils # (Auto) 0.3 TH/MM3 CBC Comment AUTO DIFF Differential Total Cells Counted 100 Neutrophils % (Manual) 78 % Band Neutrophils % 5 % Lymphocytes % 13 % Monocytes % 3 % Eosinophils % 1 % Neutrophils # (Manual) 12.0 TH/MM3 Differential Comment FINAL DIFF MANUAL Platelet Estimate LOW Platelet Morphology Comment NORMAL Red Cell Morphology Comment NORMAL Prothrombin Time 9.8 SEC Prothromb Time International Ratio 1.0 RATIO Activated Partial Thromboplast Time 27.7 SEC Blood Urea Nitrogen 15 MG/DL Creatinine 0.46 MG/DL Random Glucose 188 MG/DL Total Protein 5.0 GM/DL Albumin 1.9 GM/DL Calcium Level 6.9 MG/DL Alkaline Phosphatase 87 U/L Aspartate Amino Transf (AST/SGOT) 54 U/L Alanine Aminotransferase (ALT/SGPT) 39 U/L Total Bilirubin 0.6 MG/DL Direct Bilirubin 0.2 MG/DL Sodium Level 135 MEQ/L Potassium Level 4.2 MEQ/L Chloride Level 103 MEQ/L Carbon Dioxide Level 24.6 MEQ/L Anion Gap 7 MEQ/L Estimat Glomerular Filtration Rate 137 ML/MIN Protein Corrected Calcium 8.0 MG/DL Phenytoin (Dilantin) Level 15.7 MCG/ML Imaging Last 24 hours Impressions Chest X-Ray 12/02/17 0400 Signed Impressions: Service Date/Time: Saturday, December 02, 2017 04:17 - CONCLUSION: No significant change. Uziel Murry MD Assessment and Plan Problem List: (1) NSTEMI (non-ST elevated myocardial infarction) ICD Codes: I21.4 - Non-ST elevation (NSTEMI) myocardial infarction Plan: continue with conservative management for now; ischemic w/u once metabolic issues resolved. (2) Cardiomyopathy ICD Codes: I42.9 - Cardiomyopathy, unspecified Plan: EF 40%, on multiple pressors so BP too low for BB or CHUYITA/ARB (3) DKA (diabetic ketoacidoses) ICD Codes: E13.10 - Other specified diabetes mellitus with ketoacidosis without coma Status: Acute (4) Altered mental status ICD Codes: R41.82 - Altered mental status, unspecified Status: Acute Plan: would be ok w/ gentle hydration while intubated in an attempt to get of pressors (at least cramine) (5) Shock ICD Codes: R57.9 - Shock, unspecified Status: Acute (6) DM type 1 (diabetes mellitus, type 1) ICD Codes: E10.9 - DM type 1 (diabetes mellitus, type 1) Status: Acute (7) Tobacco abuse ICD Codes: Z72.0 - Tobacco abuse Status: Acute (8) Respiratory failure ICD Codes: J96.90 - Respiratory failure, unspecified, unspecified whether with hypoxia or hypercapnia (9) Anemia ICD Codes: D64.9 - Anemia, unspecified Problem Qualifiers (1) DKA (diabetic ketoacidoses): Qualified Codes: E10.11 - Type 1 diabetes mellitus with ketoacidosis with coma (2) Altered mental status: Qualified Codes: R40.1 - Stupor (3) DM type 1 (diabetes mellitus, type 1): Qualified Codes: E10.69 - Type 1 diabetes mellitus with other specified complication; E10.65 - Type 1 diabetes mellitus with hyperglycemia Joshua Cornell MD Dec 02, 2017 07:51
[2017-12-02] MEDS ORDERED: PHENYLEPHRINE INJ 160 MG in SODIUM CHLORID 0.9% 500 ML INJ 484 ML IV PRN (08:00)
[2017-12-02] MEDS: CHLORHEXIDINE 0.12% (ORAL KIT) 15 ML CUP MT SCH ×2 (08:00→20:02)
[2017-12-02] MEDS: VANCOMYCIN INJ 600 MG in SODIUM CHLOR 0.9% 250 ML INJ 250 ML IV SCH (08:32)
[2017-12-02] MEDS: levETIRAcetam INJ 500 MG in SODIUM CHLORIDE 0.9% INJ 100 ML IV SCH ×2 (08:33→20:06)
[2017-12-02] MEDS: FOSPHENYTOIN SODIUM 100 MG PE/2 ML VIAL IV SCH ×2 (08:34→20:09)
[2017-12-02] MEDS: MULTIVITAMIN TAB PO SCH (08:34)
[2017-12-02] MEDS: ASPIRIN 81 MG CHEW TAB CHEW SCH (08:34)
[2017-12-02] MEDS: DOCUSATE SODIUM 50 MG/SENNA 8.6 MG TAB PO SCH ×2 (08:34→20:11)
[2017-12-02] MEDS ORDERED: PHARMACY ORDERED LAB ONE (08:45)
[2017-12-02] MEDS: ARTIFICIAL TEARS OPTH SOLN 15 ML BTL EACH EYE SCH ×3 (08:55→18:00)
[2017-12-02] MEDS: SODIUM CHLOR 0.9% 1000 ML INJ 1,000 ML IV SCH (08:55)
[2017-12-02] MEDS: VASOPRESSIN INJ 40 UNITS in DEXTROSE 5% IN WATER 100ML INJ 98 ML IV SCH ×2 (09:00)
[2017-12-02] MEDS: THIAMINE INJ 100 MG in SODIUM CHLORIDE 0.9% INJ 100 ML IV SCH (09:00)
[2017-12-02] MEDS: SODIUM CHLORIDE 0.9% FLUSH 10 ML FLUSH IV FLUSH SCH ×3 (09:00→20:10)
--- NOTE | 2017-12-02 12:54 | PD.ID.CON ---
History of Present Illness Service ID Consult Requested By Dr Marinelli Reason for Consult sepsis Primary Care Physician Zunilda Dwyer M.D. Diagnoses: History of Present Illness 61 o female with DM, on insuline pump, ? failed presented after found unresponsive on well check SHe presented in DKA with BS of 800 UA was unremarkable from ID [place] urine and blood clx x 2 negative CXR BAL with low numbers of WBC, BAL clx + for E.coli along with nl skin demario She is intubated, no secretions making urine tolerates tube feeds and having BMs On pressors, low doses of levaphed and neosynephrine Mild diffuse ventriculomegaly on CT head, nothing remarkable on CXR and abnormal gallbladder incidently seen on renal US Pt sustained R sided pneumothorax and now has CT placed On presentation BRIELLE, creatinine now back to normal Review of Systems ROS Limitations: Clinical Condition, Intubated, Altered Mental Status, Unresponsive Past Family Social History Allergies: Coded Allergies: No Known Allergies (Unverified Allergy, Unknown, 11/28/17) Past Medical History Breast cancer Insulin-dependent diabetes mellitus type 1 uncontrolled Osteoporosis/arthritis Allergic rhinitis Tobaccoism Chronic benzodiazepine use Past Surgical History YAG laser right posterior capsulotomy Active Ordered Medications Medications where reviewed in EMR Antibiotics Include: acyclovir zosyn vanco Family History Father from cancer unknown type. History of myocardial infarct age 51 Both parents with glaucoma. Mother with rheumatoid arthritis Social History 1-2 beers daily per report. Positive tobaccoism. No IV drug use Physical Exam Vital Signs Vital Signs Date Time Temp Pulse Resp B/P (MAP) Pulse Ox O2 Delivery O2 Flow Rate FiO2 12/02/17 11:15 100 50 12/02/17 09:00 90 16 85/51 (62) 100 100/48 (65) 12/02/17 08:58 93 100/49 12/02/17 08:30 90 15 92/54 (67) 100 104/52 (69) 12/02/17 08:00 92 16 80/47 (58) 100 92/46 (61) 12/02/17 07:30 98.3 92 15 84/48 (60) 100 96/50 (65) 12/02/17 07:15 100 50 12/02/17 06:21 84 136/64 12/02/17 06:00 84 140/64 (89) 12/02/17 06:00 84 12/02/17 06:00 84 16 117/67 (84) 100 140/64 (89) 12/02/17 06:00 84 140/64 12/02/17 05:45 84 16 109/61 (77) 100 130/60 (83) 12/02/17 05:30 84 16 96/72 (80) 100 126/60 (82) 12/02/17 05:28 86 124/58 12/02/17 05:15 92 29 109/57 (74) 89 112/50 (70) 12/02/17 05:00 82 15 106/65 (79) 100 124/56 (78) 12/02/17 05:00 82 124/56 12/02/17 04:45 84 16 112/68 (83) 100 12/02/17 04:30 84 15 108/65 (79) 100 106/90 (95) 12/02/17 04:15 100 50 12/02/17 04:15 82 15 116/70 (85) 100 12/02/17 04:00 98.2 84 16 102/63 (76) 99 118/70 (86) 12/02/17 04:00 50 12/02/17 04:00 84 118/70 (86) 12/02/17 04:00 84 12/02/17 03:45 82 15 101/62 (75) 99 118/62 (80) 12/02/17 03:20 82 16 116/62 (80) 97 12/02/17 03:15 82 15 99/63 (75) 96 118/62 (80) 12/02/17 03:01 80 15 89/55 (66) 97 90/60 (70) 12/02/17 03:00 84 12/02/17 02:59 84 88/62 12/02/17 02:45 84 16 104/60 (75) 97 12/02/17 02:33 84 102/58 12/02/17 02:30 84 15 100/58 (72) 100 12/02/17 02:15 84 16 104/58 (73) 100 12/02/17 02:01 86 17 90/59 (69) 100 92/54 (67) 12/02/17 02:00 84 12/02/17 02:00 84 16 96/60 (72) 98 12/02/17 02:00 84 16 96/60 (72) 98 12/02/17 01:45 86 15 104/56 (72) 100 12/02/17 01:30 100 50 12/02/17 01:30 86 16 110/56 (74) 100 12/02/17 01:15 84 16 114/56 (75) 98 12/02/17 01:00 84 16 106/64 (78) 97 122/60 (80) 12/02/17 00:15 82 15 114/62 (79) 100 12/02/17 00:01 80 15 98/60 (73) 99 98/56 (70) 12/02/17 00:00 50 12/02/17 00:00 80 12/02/17 00:00 97.9 80 15 100/58 (72) 99 12/01/17 23:45 80 16 94/62 (73) 100 12/01/17 23:30 80 15 110/58 (75) 100 12/01/17 23:15 80 15 118/60 (79) 100 12/01/17 23:00 80 15 96/60 (72) 100 112/60 (77) 12/01/17 22:45 100 50 12/01/17 22:44 82 16 107/63 (78) 100 124/62 (82) 12/01/17 22:00 80 12/01/17 22:00 80 16 124/62 (82) 100 12/01/17 21:44 80 16 101/65 (77) 100 122/60 (80) 12/01/17 21:00 82 15 89/56 (67) 98 110/56 (74) 12/01/17 20:22 80 16 97/63 (74) 95 120/58 (78) 12/01/17 20:17 78 15 109/67 (81) 94 128/62 (84) 12/01/17 20:02 98 Mechanical Ventilator 12/01/17 20:02 98.0 78 16 109/70 (83) 98 132/64 (86) 12/01/17 20:00 78 12/01/17 20:00 78 132/64 (86) 12/01/17 20:00 50 12/01/17 20:00 78 130/64 12/01/17 20:00 78 130/64 12/01/17 20:00 78 130/64 12/01/17 19:47 78 15 107/68 (81) 97 130/68 (88) 12/01/17 19:32 80 15 110/70 (83) 96 112/70 (84) 12/01/17 19:30 97 50 12/01/17 19:17 82 15 111/69 (83) 95 98/84 (89) 12/01/17 19:00 82 15 140/126 (131) 98 12/01/17 18:00 80 12/01/17 18:00 80 16 96/62 (73) 100 108/72 (84) 12/01/17 17:00 80 15 93/62 (72) 100 106/68 (81) 12/01/17 16:36 80 106/66 12/01/17 16:30 100 50 12/01/17 16:00 98.9 82 16 96/63 (74) 100 118/78 (91) 12/01/17 16:00 82 12/01/17 16:00 50 12/01/17 15:01 82 15 91/62 (72) 100 114/68 (83) 12/01/17 14:01 80 16 100/66 (77) 100 100/60 (73) 12/01/17 14:00 80 12/01/17 13:30 100 50 12/01/17 13:01 74 15 109/73 (85) 100 116/68 (84) Physical Exam CONSTITUTIONAL/GENERAL: This is an adequately nourished patient, in no apparent distress. TUBES/LINES/DRAINS: SKIN: No jaundice, rashes, or lesions. Ecchymoses on upper extremities. No wounds seen anteriorly. Skin temperature appropriate. Not diaphoretic. HEAD: Atraumatic. Normocephalic. EYES: Pupils small and sluggish. Extraocular motions intact. No scleral icterus. No injection or drainage. Fundi not examined. ENT: Hearing not tested. Nose without bleeding or purulent drainage. Throat without visible erythema, exudates, masses, or lesions. NECK: Trachea midline. Supple, nontender. No palpable thyroid enlargement or nodularity. CARDIOVASCULAR: Regular rate and rhythm without murmurs, gallops, or rubs. No JVD. Peripheral pulses symmetric. RESPIRATORY/CHEST: Symmetric, unlabored respirations. Clear to auscultation. Breath sounds equal bilaterally. No wheezes, rales, or rhonchi. R seded CT with serosang d/c GASTROINTESTINAL: Abdomen soft, moderartly distended, no reaction to palpation. No hepato-splenomegaly, or palpable masses. No guarding. Bowel sounds present. GENITOURINARY: Without palpable bladder distension. Méndez catheter in place with clear yellow urine MUSCULOSKELETAL: Extremities without clubbing, cyanosis, or edema. No joint tenderness or effusion noted. No calf tenderness. No mottling or clubbing. LYMPHATICS: No palpable cervical or supraclavicular adenopathy. NEUROLOGICAL: Unresponsive. No spontaneous or to commnads movements PSYCHIATRIC: unable to assess Laboratory Laboratory Tests Test 12/02/17 04:10 12/02/17 10:00 White Blood Count 14.5 Red Blood Count 2.90 Hemoglobin 9.2 Hematocrit 27.9 Mean Corpuscular Volume 96.0 Mean Corpuscular Hemoglobin 31.8 Mean Corpuscular Hemoglobin Concent 33.1 Red Cell Distribution Width 13.1 Platelet Count 143 Mean Platelet Volume 7.8 Neutrophils (%) (Auto) 78.4 Lymphocytes (%) (Auto) 13.2 Monocytes (%) (Auto) 5.4 Eosinophils (%) (Auto) 0.7 Basophils (%) (Auto) 2.3 Neutrophils # (Auto) 11.4 Lymphocytes # (Auto) 1.9 Monocytes # (Auto) 0.8 Eosinophils # (Auto) 0.1 Basophils # (Auto) 0.3 CBC Comment AUTO DIFF Differential Total Cells Counted 100 Neutrophils % (Manual) 78 Band Neutrophils % 5 Lymphocytes % 13 Monocytes % 3 Eosinophils % 1 Neutrophils # (Manual) 12.0 Differential Comment FINAL DIFF MANUAL Platelet Estimate LOW Platelet Morphology Comment NORMAL Red Cell Morphology Comment NORMAL Prothrombin Time 9.8 Prothromb Time International Ratio 1.0 Activated Partial Thromboplast Time 27.7 Blood Urea Nitrogen 15 Creatinine 0.46 Random Glucose 188 Total Protein 5.0 Albumin 1.9 Calcium Level 6.9 Alkaline Phosphatase 87 Aspartate Amino Transf (AST/SGOT) 54 Alanine Aminotransferase (ALT/SGPT) 39 Total Bilirubin 0.6 Direct Bilirubin 0.2 Sodium Level 135 Potassium Level 4.2 Chloride Level 103 Carbon Dioxide Level 24.6 Anion Gap 7 Estimat Glomerular Filtration Rate 137 Protein Corrected Calcium 8.0 Phenytoin (Dilantin) Level 15.7 Phenobarbital Level 2.7 Date/Time Source Procedure Growth Status 11/28/17 18:55 Blood Peripheral Aerobic Blood Culture - Preliminary NO GROWTH IN 4 DAYS Resulted 11/28/17 18:55 Blood Peripheral Anaerobic Blood Culture - Preliminary NO GROWTH IN 4 DAYS Resulted 11/29/17 20:00 Nasal Aspirate Influenza Types A,B Antigen (KELY) - Final NEGATIVE FOR FLU A AND B ANTIGEN.... Complete 11/28/17 15:28 Urine Catheterized Urine Urine Culture - Final NO GROWTH IN 48 HOURS. Complete Result Diagram: 12/02/17 0410 12/02/17 0410 Imaging Last Impressions Chest X-Ray 12/02/17 0400 Signed Impressions: Service Date/Time: Saturday, December 02, 2017 04:17 - CONCLUSION: No significant change. Uziel Murry MD Renal Ultrasound 11/29/17 1656 Signed Impressions: Service Date/Time: Wednesday, November 29, 2017 13:16 - CONCLUSION: 1. Both kidneys are sonographically normal without hydronephrosis or nephrolithiasis. 2. Very abnormal appearance of the gallbladder with mural thickening and minimal pericholecystic fluid Dani Titus MD Brain MRI 11/29/17 0000 Signed Impressions: Service Date/Time: Wednesday, November 29, 2017 13:27 - CONCLUSION: 1. Mild diffuse ventriculomegaly. Clinical correlation for normal pressure hydrocephalus is recommended. 2. [id number] periventricular small vessel ischemic white matter demyelination, out of proportion for age. Aly Leigh MD Head CT 11/28/17 0000 Signed Impressions: Service Date/Time: November 15:46 - CONCLUSION: 1. Ventriculomegaly suggesting central cerebral atrophy versus hydrocephalus. Clinical correlation is recommended. 2. No acute infarct, acute hemorrhage, midline shift or extra-axial fluid collections. Dev Christopher MD Assessment and Plan Assessment and Plan sepsis: on [resentation fever up to 100.7, leukocytopsis with WBC of 25 K and lactic acidosis DKA - probably 2/2 sepiss Acute VDRF, BAL, CXR not cw PNA ? Meningitis ? cholecytitis - UA findings were dw Dr Titus - further w/u with RUQ US was recom'd Crititical, unstable - agree with LP plan - RUQ U/S to exam - change abx to from zosyn to CFTX/Flagyl will add ampuicillin P LP resilts - cont vanco - cont acyclovir - further rec's to follow per w/u resuilts Discussed Condition With Anh Ramirez MD Dec 02, 2017 12:54
--- NOTE | 2017-12-02 15:35 | PD.RAD ---
Post Procedure Progress Note Pre Procedure Diagnosis: (1) Seizure cerebral (2) Encephalopathy, metabolic Post Procedure Diagnosis: (1) Seizure cerebral (2) Encephalopathy, metabolic Procedure Date: Dec 02, 2017 Supervising Radiologist: Aly Leigh Proceduralist/Assist: Leon Bernard, RT(R), Adelina Maloney RT(R) Anesthesia: Local Plan of Activity Patient to Unit: Critical Care Patient Condition: Good See PACS Report for procedural detail/treatment Aly Leigh MD Dec 02, 2017 15:35
--- NOTE | 2017-12-02 16:21 | RADRPT ---
EXAM DATE/TIME: 12/02/2017 15:28 [facility] COMPARISON: No previous studies available for comparison. INDICATIONS : Patient presents with altered mental status in need of lumbar puncture for further evaluation. MEDICAL HISTORY : Breast cancer Insulin-dependent diabetes mellitus type 1 uncontrolled Osteoporosis/arthritis Allergic rhinitis Tobaccoism Chronic benzodiazepine use SURGICAL HISTORY : YAG laser right posterior capsulotomy ENCOUNTER: Initial ACUITY: 4 -6 days PAIN SCORE: Nonresponsive. LOCATION: N/A LUMBAR PUNCTURE TIME: 15:29 hours FLUORO TIME: 0.3 minutes IMAGE SERIES: 0 ACCESS LEVEL: L3-4 FLUID: 11 cc of clear CSF was collected and sent to the laboratory for analysis. PROCEDURE : 1. Fluoroscopic guided lumbar puncture. The risks, benefits and alternatives to the procedure were explained and verbal and written consent w as obtained. The site was prepped in sterile fashion. Full sterile technique was used, including ca p, mask, sterile gloves and gown and a large sterile sheet. Hand hygiene and 2% chlorhexidine and/or betadine/alcohol prep was utilized per protocol for cutaneous antisepsis. The skin and subcutaneous tissues were infiltrated with local anesthetic solution. With fluoroscopic guidance the lumbar thecal sac was punctured at the level above. The fluid describ ed above was removed without difficulty. The patient tolerated the procedure well and there were no complications. CONCLUSION: Uncomplicated fluoroscopically guided lumbar puncture. Aly Leigh MD on December 02, 2017 at 16:18 Board Certified Radiologist. This report was verified electronically.
[2017-12-02] MEDS: AMPICILLIN INJ 2,000 MG in SODIUM CHLORIDE 0.9% INJ 100 ML IV SCH ×3 (16:46→22:15)
[2017-12-02] MEDS: cefTRIAXone INJ 2,000 MG in SODIUM CHLORIDE 0.9% INJ 100 ML IV SCH (16:47)
[2017-12-02] MEDS: metroNIDAZOLE 500 MG INJ 100 ML IV SCH (16:47)
[2017-12-02 16:54] LABS: SUPERNATE COLOR TUBE #1 CLEAR (CLEAR); VOLUME TUBE # 1 2.5 ML
[2017-12-02 16:55] LABS: CSF LYMPHOCYTES 96 %; CSF MONOCYTES 2 %; CSF NEUTROPHILS 2 %; RBC TUBE #4 28 /MM3; WBC TUBE #4 6 /MM3 (0-10)
[2017-12-02 17:39] LABS: TOTAL PROTEIN,CSF 32.1 MG/DL (15.0-45.0)
[2017-12-02] MEDS: VANCOMYCIN 1,000 MG/NS 250 ML IV SCH ×2 (20:07)
[2017-12-02] MEDS: PANTOPRAZOLE SODIUM 40 MG VIAL IV PUSH SCH (20:10)
[2017-12-02] MEDS: ATORVASTATIN 10 MG TAB PO SCH (20:11)
--- NOTE | 2017-12-02 20:45 | MG ---
cc: Chelly Moody MD REFERRING PHYSICIAN: Brijesh Neville MD An EEG was obtained on this 61-year-old patient, intubated, on Versed and Fentanyl. MEDICATIONS: Include Cerebyx, phenobarbital and Keppra. The EEG shows a generalized slowing and attenuation. There are a lot of theta and delta rhythms. The slowing, at times, appeared to be more prominent on the left than the right, but this may be a technical asymmetry. There are no paroxysmal or epileptiform discharges like what apparently was present on a previous EEG. The EEG eventually shows a lot of muscle artifact and that is when the patient was stimulated and withdrew the limbs. The patient "falls back to sleep quickly." Photic stimulation was unremarkable. INTERPRETATION: Abnormal electroencephalogram because of bihemispheric slowing, questionably left more than right, suggesting bilateral abnormalities. This could be a moderate to severe diffuse disturbance of cerebral function or bilateral structural abnormalities, left more than right. No epileptiform features present. Chelly Moody MD OFC/SB , 08:26 PM , 08:44 PM
[2017-12-02] MEDS: MIDAZOLAM 100 MG/100 ML INJ 100 ML IV PRN (22:40)
[2017-12-03] VITALS (66 sets, daily range): BP systolic 60–148; BP diastolic 43–106; PULSE 72–108; RESP 15–21; TEMP 97.5–99.1; O2SAT 100
[2017-12-03] MEDS: metroNIDAZOLE 500 MG INJ 100 ML IV SCH (00:09)
[2017-12-03] MEDS: INSULIN ASPART SUPPLEMENTAL SCALE SQ SCH ×6 (00:10→20:25)
[2017-12-03] MEDS: CHLORHEXIDINE GLUCONATE 2 % 1 PACK (2 CLOTHS) TOP SCH (00:17)
[2017-12-03] MEDS: SODIUM CHLOR 0.9% 1000 ML INJ 1,000 ML IV SCH ×3 (02:30→19:35)
[2017-12-03] MEDS: AMPICILLIN INJ 2,000 MG in SODIUM CHLORIDE 0.9% INJ 100 ML IV SCH ×2 (02:31→06:21)
[2017-12-03] MEDS: cefTRIAXone INJ 2,000 MG in SODIUM CHLORIDE 0.9% INJ 100 ML IV SCH (02:31)
[2017-12-03 05:30] LABS: BASOPHIL % 0.5 % (0.0-2.0); EOSINOPHIL # 0.3 TH/MM3 (0-0.4); EOSINOPHIL % 2.9 % (0.0-4.0); HEMATOCRIT 25.8 % (35.0-46.0); HEMOGLOBIN 8.6 GM/DL (11.6-15.3); LYMPH % 16.1 % (9.0-44.0); LYMPHOCYTE # 1.6 TH/MM3 (1.0-4.8); MEAN CELL VOLUME 96.6 FL (80.0-100.0); MEAN CORPUSCULAR HEMOGLOBIN 32.3 PG (27.0-34.0); MEAN CORPUSCULAR HGB CONC 33.4 % (32.0-36.0); MEAN PLATELET VOLUME 8.2 FL (7.0-11.0); NEUT % 70.5 % (16.0-70.0); PLATELET COUNT 162 TH/MM3 (150-450); RED BLOOD COUNT 2.67 MIL/MM3 (4.00-5.30); RED CELL DISTRIBUTION WIDTH 13.1 % (11.6-17.2); WHITE BLOOD COUNT 9.9 TH/MM3 (4.0-11.0)
--- NOTE | 2017-12-03 06:13 | RADRPT ---
EXAM DATE/TIME: 12/03/2017 05:33 [facility] COMPARISON: CHEST SINGLE AP, December 02, 2017, 4:17. INDICATIONS : Shortness of breath. MEDICAL HISTORY : Diabetes mellitus type I. SURGICAL HISTORY : None. ENCOUNTER: Subsequent ACUITY: 1 week PAIN SCORE: Non-responsive. LOCATION: Bilateral chest FINDINGS: Basilar consolidation and small moderate pleural effusions again noted, not significantly changed. Ri ght chest tube remains in place. Endotracheal tube tip is approximately 1.5 cm above the kera. There is a nasogastric tube coiled in the stomach. There is a left internal jugular central venous catheter with tip in the superior vena cava. CONCLUSION: Endotracheal tube tip close to the kera. No other significant change. Uziel Murry MD on December 03, 2017 at 6:11 Board Certified Radiologist. This report was verified electronically.
[2017-12-03 06:21] LABS: ALBUMIN 1.8 GM/DL (3.4-5.0); BICARBONATE 29.6 MEQ/L (21.0-32.0); CALCIUM 6.9 MG/DL (8.5-10.1); CALCIUM-PROTEIN CORRECTED 7.9 MG/DL (8.5-10.1); CREATININE 0.42 MG/DL (0.50-1.00); MAGNESIUM 2.3 MG/DL (1.5-2.5); PHENYTOIN (DILANTIN) 12.2 MCG/ML (10.0-20.0); TOTAL BILIRUBIN ADULT 0.3 MG/DL (0.2-1.0); TOTAL PROTEIN 5.1 GM/DL (6.4-8.2)
--- NOTE | 2017-12-03 06:26 | PD.CARD.PN ---
Subjective Subjective Remarks The chart was reviewed. The patient is intubated and sedated. She is on Levophed and Chetan-Synephrine. Telemetry reveals sinus rhythm. Echocardiogram reveals mild left ventricular dysfunction. Chest tube is in place. Objective Medications Current Medications Medications (Trade) Dose Ordered Sig/Kenna Route Start Time Stop Time Status Last Admin (NS Flush) 2 ml UNSCH PRN IV FLUSH 11/28/17 16:00 (NS Flush) 2 ml BID IV FLUSH 11/28/17 21:00 12/02/17 20:10 (Tears Naturale Opth Soln) 1 drop TID EACH EYE 11/28/17 18:00 12/02/17 18:00 (Albuterol Neb) 2.5 mg Q2HR NEB PRN INH 11/28/17 16:00 (Chlorhexidine 2% Cloth) 3 pack UNSCH PRN TOP 11/28/17 16:00 Future Hold (Marcie-Colace) 1 tab BID PO 11/28/17 21:00 12/02/17 08:34 (Milk Of Magnesia Liq) 30 ml Q12H PRN PO 11/28/17 16:00 (Senokot) 17.2 mg Q12H PRN PO 11/28/17 16:00 (Dulcolax Supp) 10 mg DAILY PRN RECTAL 11/28/17 16:00 (Lactulose Liq) 30 ml DAILY PRN PO 11/28/17 16:00 (Zofran Inj) 4 mg Q6H PRN IV PUSH 11/28/17 16:15 (Heparin Inj) 5,000 units Q8H SQ 11/28/17 18:00 Future Hold 11/29/17 01:31 Miscellaneous Information 1 Q361D XX 11/28/17 16:15 11/28/17 16:15 (Chlorhexidine 2% Cloth) 3 pack Taper DAILY@04 TOP 11/29/17 04:00 11/25/18 03:59 12/03/17 00:17 (Chlorhexidine 2% Cloth) 3 pack UNSCH PRN TOP 11/28/17 16:15 (Brethine Inj) 1 mg UNSCH PRN SQ 11/28/17 17:00 (Flonase Willem Spr) 1 spray BID EACH NARE 11/28/17 21:00 Future Hold (Theragran) 1 tab DAILY PO 11/29/17 09:00 12/02/17 08:34 Thiamine HCl 100 mg/Sodium Chloride 101 ml @ 101 mls/hr DAILY IV 11/29/17 09:00 12/02/17 09:00 (D50w (Vial) Inj) 50 ml UNSCH PRN IV PUSH 11/29/17 07:15 11/30/17 07:11 (Glucagon Inj) 1 mg UNSCH PRN OTHER 11/29/17 07:15 (Levemir Inj) 8 units BID SQ 11/29/17 09:00 Future Hold 11/29/17 22:11 Pharmacy Profile Note 0 ml @ 0 mls/hr UNSCH OTHER 11/29/17 07:15 Potassium Chloride 100 ml @ 50 mls/hr Q2H PRN IV 11/29/17 07:15 Potassium Chloride 100 ml @ 50 mls/hr Q2H PRN IV 11/29/17 07:15 (K-Lyte Cl Eff) 50 meq UNSCH PRN PO 11/29/17 07:15 Potassium Chloride 100 ml @ 25 mls/hr UNSCH PRN IV 11/29/17 07:15 Potassium Chloride 100 ml @ 50 mls/hr Q2H PRN IV 11/29/17 07:15 Magnesium Sulfate 4 gm/Sodium Chloride 100 ml @ 50 mls/hr UNSCH PRN IV 11/29/17 07:15 (Mag-Ox) 800 mg UNSCH PRN PO 11/29/17 07:15 Magnesium Sulfate 2 gm/Sodium Chloride 100 ml @ 50 mls/hr UNSCH PRN IV 11/29/17 07:15 (K-Phos) 2,000 mg Q4H PRN PO 11/29/17 07:15 Sodium Phosphate 30 mmol/Sodium Chloride 250 ml @ 42 mls/hr UNSCH PRN IV 11/29/17 07:15 11/30/17 05:30 (K-Phos) 2,000 mg UNSCH PRN PO/TUBE 11/29/17 07:15 Potassium Phosphate 30 mmol/ Sodium Chloride 260 ml @ 42 mls/hr UNSCH PRN IV 11/29/17 07:15 12/01/17 12:05 (Peridex 0.12% Liq) 15 ml BID@08,20 MT 11/29/17 08:00 12/02/17 20:02 (Tylenol 650 Mg/ 20 ml Liq) 650 mg Q6H PRN NG 11/29/17 10:00 11/30/17 16:47 (Brethine Inj) 1 mg UNSCH PRN SQ 11/29/17 10:00 (NovoLOG SUPPLEMENTAL SCALE) 1 Q4HR SQ 11/29/17 12:00 12/03/17 00:10 (NS Flush) DAILY IV FLUSH 11/30/17 09:00 12/01/17 09:34 (NS Flush) UNSCH PRN IV FLUSH 11/29/17 11:15 (Aspirin Chew) 81 mg DAILY CHEW 11/30/17 09:00 12/02/17 08:34 (Lipitor) 10 mg HS PO 11/29/17 21:00 12/02/17 20:11 (Protonix Inj) 40 mg DAILY@2100 IV PUSH 11/29/17 21:00 12/02/17 20:10 Levetriacetam 500 mg/Sodium Chloride 105 ml @ 420 mls/hr Q12HR IV 11/30/17 09:00 12/02/17 20:06 Vasopressin 40 units/Dextrose 100 ml @ 6 mls/hr [id number] IV 11/30/17 07:00 12/01/17 16:36 (Cerebyx Inj) 200 mgpe Q12HR IV 11/30/17 21:00 12/02/17 20:09 Fentanyl Citrate 250 ml @ 5 mls/hr TITRATE PRN IV 12/01/17 08:15 12/01/17 10:12 Midazolam HCl 100 ml @ 2 mls/hr TITRATE PRN IV 12/01/17 08:15 12/02/17 22:40 Norepinephrine Bitartrate 8 mg/ Sodium Chloride 250 ml @ 5.62 mls/hr TITRATE PRN IV 12/01/17 10:00 12/01/17 10:30 (Luminal Inj) 65 mg Q8HR IM 12/01/17 14:00 12/03/17 06:20 Acyclovir Sodium 475 mg/Sodium Chloride 100 ml @ 100 mls/hr Q8H IV 12/01/17 14:00 12/02/17 22:15 Phenylephrine HCl 160 mg/Sodium Chloride 500 ml @ 7.5 mls/hr TITRATE PRN IV 12/02/17 08:00 12/02/17 08:58 Sodium Chloride 1,000 ml @ 100 mls/hr Q10H IV 12/02/17 09:00 12/03/17 02:30 Ceftriaxone Sodium 2000 mg/ Sodium Chloride 100 ml @ 200 mls/hr Q12H IV 12/02/17 15:00 12/03/17 02:31 Metronidazole 100 ml @ 100 mls/hr Q8H IV 12/02/17 16:00 12/03/17 00:09 Ampicillin Sodium 2000 mg/Sodium Chloride 100 ml @ 400 mls/hr Q4H IV 12/02/17 14:00 12/03/17 06:21 Vancomycin HCl 1000 mg/Sodium Chloride 250 ml @ 250 mls/hr Q12H IV 12/02/17 21:00 12/02/17 20:07 Miscellaneous Information SPECIFIC LAB TO BE DRAWN:VANCOMY... ONCE ONCE .XX 12/04/17 08:45 12/04/17 08:46 Vital Signs / I&O Vital Signs Date Time Temp Pulse Resp B/P (MAP) Pulse Ox O2 Delivery O2 Flow Rate FiO2 12/03/17 05:45 94 17 98/92 (94) 100 12/03/17 05:00 84 15 103/55 (71) 100 118/68 (85) 12/03/17 04:45 84 15 114/64 (81) 100 12/03/17 04:30 84 16 108/62 (77) 100 12/03/17 04:15 84 16 108/62 (77) 100 12/03/17 04:00 100 50 12/03/17 04:00 84 15 91/53 (66) 100 106/60 (75) 12/03/17 04:00 50 12/03/17 04:00 84 12/03/17 03:45 86 15 106/60 (75) 100 12/03/17 03:30 86 15 110/62 (78) 100 12/03/17 03:15 86 15 108/60 (76) 100 12/03/17 03:00 88 16 93/54 (67) 100 98/62 (74) 12/03/17 02:45 88 16 92/58 (69) 100 12/03/17 02:30 88 16 104/60 (75) 100 12/03/17 02:15 88 15 106/62 (77) 100 12/03/17 02:00 90 15 89/52 (64) 100 94/62 (73) 12/03/17 02:00 90 12/03/17 01:45 90 16 106/62 (77) 100 12/03/17 01:30 88 16 112/64 (80) 100 12/03/17 01:19 100 50 12/03/17 01:15 88 16 92/58 (69) 100 12/03/17 01:00 90 15 96/50 (65) 100 98/60 (73) 12/03/17 00:45 88 15 124/66 (85) 100 12/03/17 00:30 90 15 130/68 (88) 100 12/03/17 00:15 90 15 122/66 (84) 100 12/03/17 00:00 50 12/03/17 00:00 99.1 92 15 107/55 (72) 100 116/62 (80) 12/03/17 00:00 92 12/02/17 23:45 92 15 110/58 (75) 100 12/02/17 23:30 92 16 112/60 (77) 100 12/02/17 23:15 92 15 106/56 (73) 100 12/02/17 23:00 92 16 102/55 (71) 100 112/60 (77) 12/02/17 22:45 92 16 112/60 (77) 100 12/02/17 22:30 92 16 114/62 (79) 100 12/02/17 22:15 92 15 118/60 (79) 97 12/02/17 22:00 90 16 98/54 (69) 100 106/60 (75) 12/02/17 22:00 100 50 12/02/17 22:00 90 12/02/17 21:45 92 16 110/60 (77) 100 12/02/17 21:30 90 15 106/60 (75) 100 12/02/17 21:15 94 15 88/54 (65) 100 12/02/17 21:15 94 88/54 12/02/17 21:00 96 16 81/45 (57) 100 90/54 (66) 12/02/17 20:45 92 16 114/60 (78) 100 12/02/17 20:41 92 15 138/71 (93) 100 156/84 (108) 18 20:30 92 15 96/60 (72) 100 18 20:15 92 15 102/60 (74) 100 18 20:10 100 50 1618 20:07 94 138/72 18 20:00 94 41618 20:00 50 18 20:00 100 Mechanical Ventilator 50 12/02/17 20:00 99.5 94 15 90/50 (63) 100 90/60 (70) 18 19:45 94 20 100/66 (77) 100 18 19:39 100 40 12/02/17 19:30 92 98/64 12/02/17 19:30 92 98/64 12/02/17 19:30 92 16 98/64 (75) 100 12/02/17 19:15 94 15 98/64 (75) 100 12/02/17 19:00 92 16 101/55 (70) 100 104/68 (80) 12/02/17 18:00 86 96/61 (73) 12/02/17 18:00 94 15 89/60 (70) 100 18 18:00 86 18 17:50 100 50 18 16:07 90 15 95/56 (69) 100 101/59 (73) 18 16:00 79 12/02/17 16:00 50 18 16:00 100 50 18 14:45 100 50 18 14:00 78 18 13:30 92 16 101/56 (71) 100 104/52 (69) 18 13:00 92 16 97/47 (64) 100 108/52 (70) 18 12:00 50 18 12:00 92 16 97/52 (67) 100 106/50 (68) 18 12:00 89 18 11:30 92 19 87/52 (64) 100 100/48 (65) 18 11:15 100 50 18 11:00 90 15 91/51 (64) 100 104/50 (68) 12/02/17 10:30 90 15 83/47 (59) 100 94/46 (62) 12/02/17 10:15 92 16 85/49 (61) 100 96/48 (64) 12/02/17 10:00 88 12/02/17 10:00 94 15 85/49 (61) 100 94/52 (66) 12/02/17 09:30 96 16 87/49 (62) 100 98/52 (67) 12/02/17 09:00 90 16 85/51 (62) 100 100/48 (65) 12/02/17 09:00 90 16 100/48 (65) 100 12/02/17 08:58 93 100/49 12/02/17 08:30 90 15 92/54 (67) 100 104/52 (69) 12/02/17 08:00 50 12/02/17 08:00 98 12/02/17 08:00 92 16 80/47 (58) 100 92/46 (61) 12/02/17 07:30 98.3 92 15 84/48 (60) 100 96/50 (65) 12/02/17 07:15 100 50 12/02/17 07:00 Mechanical Ventilator 50 I/O 12/02/17 12/02/17 12/02/17 12/03/17 12/03/17 12/03/17 07:00 15:00 23:00 07:00 15:00 23:00 Intake Total 812 ml 1780 ml 1000 ml Output Total 525 ml 875 ml Balance 287 ml 905 ml 1000 ml Intake Oral 0 ml IV Total 200 ml 1780 ml 1000 ml Tube Feeding 562 ml Tube Irrigant 50 ml Output Urine Total 525 ml 875 ml # Bowel Movements 1 Physical Exam GENERAL: Well-nourished, well-developed patient in no apparent distress. She is intubated and sedated. SKIN: Warm and dry. NECK: JVD normal - less than or equal to 5 cm H20. CARDIOVASCULAR: Regular rate and rhythm without murmurs, gallops, or rubs. RESPIRATORY: Normal breath sounds - equal bilaterally. No accessory muscle use. No wheezes, rales or rubs. PERIPHERY: No cyanosis. At most trace edema. Laboratory Laboratory Tests Test 12/02/17 10:00 12/02/17 15:29 12/03/17 05:15 Vancomycin Level Trough 3.7 MCG/ML CSF Volume (Tube 1) 2.5 ML CSF Supernatant Color (tube 1) CLEAR CSF Gross Blood (Tube 1) 0 CSF Volume (Tube 2) 2.8 ML CSF Supernatant Color (tube 2) CLEAR CSF Gross Blood (Tube 2) 0 CSF Volume (Tube 3) 3.0 ML CSF Supernatant Color (tube 3) CLEAR CSF Gross Blood (Tube 3) 0 CSF Volume (Tube 4) 2.5 ML CSF Supernatant Color (tube 4) CLEAR CSF Gross Blood (Tube 4) 0 CSF WBC (Tube 4) 6 /MM3 CSF RBC (Tube 4) 28 /MM3 CSF Neutrophils 2 % CSF Lymphocytes 96 % CSF Monocytes 2 % CSF Glucose 124 MG/DL CSF Total Protein 32.1 MG/DL White Blood Count 9.9 TH/MM3 Red Blood Count 2.67 MIL/MM3 Hemoglobin 8.6 GM/DL Hematocrit 25.8 % Mean Corpuscular Volume 96.6 FL Mean Corpuscular Hemoglobin 32.3 PG Mean Corpuscular Hemoglobin Concent 33.4 % Red Cell Distribution Width 13.1 % Platelet Count 162 TH/MM3 Mean Platelet Volume 8.2 FL Neutrophils (%) (Auto) 70.5 % Lymphocytes (%) (Auto) 16.1 % Monocytes (%) (Auto) 10.0 % Eosinophils (%) (Auto) 2.9 % Basophils (%) (Auto) 0.5 % Neutrophils # (Auto) 7.0 TH/MM3 Lymphocytes # (Auto) 1.6 TH/MM3 Monocytes # (Auto) 1.0 TH/MM3 Eosinophils # (Auto) 0.3 TH/MM3 Basophils # (Auto) 0.0 TH/MM3 CBC Comment DIFF FINAL Differential Comment Blood Urea Nitrogen 10 MG/DL Random Glucose 101 MG/DL Sodium Level 145 MEQ/L Potassium Level 3.9 MEQ/L Chloride Level 110 MEQ/L Imaging Last 24 hours Impressions Chest X-Ray 12/03/17 0400 Signed Impressions: Service Date/Time: Sunday, December 03, 2017 05:33 - CONCLUSION: Endotracheal tube tip close to the kera. No other significant change. Uziel Murry MD Assessment and Plan Assessment and Plan Problems: Probable non-ST elevation SD-unclear if type I or type II Mild left ventricular dysfunction DKA Shock with possible sepsis Change in mental status Seizures Iatrogenic pneumothorax with chest tube Worsening anemia Tobacco abuse Recommendations: DVT prophylaxis Continue supportive care with management dictated by critical care and infectious disease. At this point in time we have nothing more to add. We will sign off and be available should the patient stabilized and need further cardiac workup. The case was discussed with the nursing staff. Lee Taveras MD Dec 03, 2017 06:26
[2017-12-03] MEDS: SODIUM CHLORIDE 0.9% IV SCH ×3 (06:35→20:25)
[2017-12-03] MEDS: ACYCLOVIR IV SCH ×3 (06:35→20:25)
[2017-12-03] MEDS ORDERED: CALCIUM GLUCONATE INJ 2 GM in SODIUM CHLORIDE 0.9% INJ 100 ML IV ONE (08:00)
--- NOTE | 2017-12-03 08:18 | HHI.CCPN ---
Subjective Remarks/Hospital Course This is a 51-year-old female. Date of admission 11/28/2017. Past medical history includes diabetes mellitus type 1 uncontrolled insulin- dependent with retinopathy on home insulin pump, hypertension, allergic rhinitis and chronic benzodiazepine use. She also has history of breast cancer on raloxifene she originally presented to [facility] ED During the workup, patient was noted to have a blood sugar of 808. Elevated acetone. Sodium 135. Potassium 6.0. Ferritin 2.1. Leukocytosis 25,000. Macrocytic anemia. UA negative for infectious etiology. She was bolused with 3 L of 0.9% NaCl IV fluid bolus. She is received 3 ampules of sodium bicarbonate and 1 g calcium gluconate. Chest x-ray post procedure revealed the CT scan of the head is read by the radiologist as ventriculomegaly but otherwise no acute findings. 11/29: Patient had nonrebreather off all night. PTX now 8 mm. Yells "Help me " "I don't know" Gap has closed, will transition back to SQ insulin if able to pass swallow. Replacing lytes. SUBJECTIVE: 11/30: Patient opens eyes to voice. Leftward gaze. Frequent blinking. Withdraws to stimulation bilateral lower extremities. T-max 99.5. Remains on norepinephrine and phenylephrine drips. MRI brain revealed ventriculomegaly. No acute signs of CVA. Echocardiogram EF 40%. 12/01: Afebrile. Patient remains off sedation approximately 24 hours nonresponsive. EEG in process. BAL revealed gram-negative rods the patient continues on Zosyn. The patient remains on vasopressors norepinephrine, vasopressin, and phenylephrine. Versed infusion restarted secondary to seizure activity noted on repeat EEG this a.m.. 12/02: Afebrile. The patient is scheduled for lumbar puncture this a.m., INR 1.0 patient has been off subcu heparin approximately 3 days. The patient continues on Versed and fentanyl infusions to maintain ventilator synchrony and avoidance of subclinical seizures which were noted on the EEG yesterday. The patient continues on multiple vasopressors to include norepinephrine and phenylephrine and vasopressin. Vasopressin currently being weaned off. The patient continues to have persistent leukocytosis though it is slightly downtrending plan for ID consult today appreciate recommendations. Bronchial washings resulted E. coli, currently patient continues on Zosyn. Patient was noted to have a positive fluid balance yesterday the patient received 20 mg of Lasix with adequate diuresis the patient noted to have a sodium level slightly decreased at 135 IV fluids mixed in 0.9 normal saline. 12/03: No acute events overnight lumbar puncture performed yesterday results pending. Dilantin level therapeutic. Phenobarbital level pending. Patient off vasopressin 24 hours. Phenylephrine currently being weaned off. Patient noted to be anemic 1 unit packed cells will be transfused today no pneumothorax chest tube now placed to waterseal today. Objective Vital Signs Date Time Temp Pulse Resp B/P (MAP) Pulse Ox O2 Delivery O2 Flow Rate FiO2 12/03/17 07:50 100 50 12/03/17 06:00 94 107/58 (74) 112/70 (84) 12/03/17 06:00 16 12/03/17 00:01 99.1 12/02/17 20:00 Mechanical Ventilator 11/29/17 07:00 2.00 Intake and Output 12/03/17 12/03/17 12/04/17 08:00 16:00 00:00 Intake Total 1400 ml Output Total 950 ml Balance 450 ml Result Diagram: 12/03/17 0515 12/03/17 0515 Imaging Last Impressions Chest X-Ray 12/02/17 0400 Signed Impressions: Service Date/Time: Saturday, December 02, 2017 04:17 - CONCLUSION: No significant change. Uziel Murry MD Renal Ultrasound 11/29/17 1656 Signed Impressions: Service Date/Time: Wednesday, November 29, 2017 13:16 - CONCLUSION: 1. Both kidneys are sonographically normal without hydronephrosis or nephrolithiasis. 2. Very abnormal appearance of the gallbladder with mural thickening and minimal pericholecystic fluid Dani Titus MD Brain MRI 11/29/17 0000 Signed Impressions: Service Date/Time: Wednesday, November 29, 2017 13:27 - CONCLUSION: 1. Mild diffuse ventriculomegaly. Clinical correlation for normal pressure hydrocephalus is recommended. 2. [id number]-[id number] periventricular small vessel ischemic white matter demyelination, out of proportion for age. Aly Leigh MD Head CT 11/28/17 0000 Signed Impressions: Service Date/Time: November 15:46 - CONCLUSION: 1. Ventriculomegaly suggesting central cerebral atrophy versus hydrocephalus. Clinical correlation is recommended. 2. No acute infarct, acute hemorrhage, midline shift or extra-axial fluid collections. Dev Christopher MD Last Impressions Chest X-Ray 12/01/17 0600 Signed Impressions: Service Date/Time: Friday, December 01, 2017 03:56 - CONCLUSION: 1. Patchy alveolar disease characteristic of edema or pneumonia. There has been no significant change when compared to the prior exam. Patrick Hamm MD Renal Ultrasound 11/29/17 1656 Signed Impressions: Service Date/Time: Wednesday, November 29, 2017 13:16 - CONCLUSION: 1. Both kidneys are sonographically normal without hydronephrosis or nephrolithiasis. 2. Very abnormal appearance of the gallbladder with mural thickening and minimal pericholecystic fluid Dani Titus MD Brain MRI 11/29/17 0000 Signed Impressions: Service Date/Time: Wednesday, November 29, 2017 13:27 - CONCLUSION: 1. Mild diffuse ventriculomegaly. Clinical correlation for normal pressure hydrocephalus is recommended. 2. [id number] periventricular small vessel ischemic white matter demyelination, out of proportion for age. Aly Leigh MD Head CT 11/28/17 0000 Signed Impressions: Service Date/Time: November 15:46 - CONCLUSION: 1. Ventriculomegaly suggesting central cerebral atrophy versus hydrocephalus. Clinical correlation is recommended. 2. No acute infarct, acute hemorrhage, midline shift or extra-axial fluid collections. Dev Christopher MD Last Impressions Renal Ultrasound 11/29/17 1656 Signed Impressions: Service Date/Time: Wednesday, November 29, 2017 13:16 - CONCLUSION: 1. Both kidneys are sonographically normal without hydronephrosis or nephrolithiasis. 2. Very abnormal appearance of the gallbladder with mural thickening and minimal pericholecystic fluid Dani Titus MD Chest X-Ray 11/29/17 1102 Signed Impressions: Service Date/Time: Wednesday, November 29, 2017 11:03 - CONCLUSION: Line in good position.. Ousmane Bird MD FACR Brain MRI 11/29/17 0000 Signed Impressions: Service Date/Time: Wednesday, November 29, 2017 13:27 - CONCLUSION: 1. Mild diffuse ventriculomegaly. Clinical correlation for normal pressure hydrocephalus is recommended. 2. [id number]-ya-[id number] periventricular small vessel ischemic white matter demyelination, out of proportion for age. Aly Leigh MD Head CT 11/28/17 0000 Signed Impressions: Service Date/Time: November 15:46 - CONCLUSION: 1. Ventriculomegaly suggesting central cerebral atrophy versus hydrocephalus. Clinical correlation is recommended. 2. No acute infarct, acute hemorrhage, midline shift or extra-axial fluid collections. Dev Christopher MD Procedures 12/02-planned lumbar puncture Objective Remarks GENERAL: 61-year-old female critically ill currently orotracheally intubated SKIN: Warm and dry. No rash HEAD: Atraumatic. Normocephalic. EYES: Pupils equal and round about 2 mm bilaterally reactive. No scleral icterus. No injection, some yellowish drainage noted left eye. Bilateral scleral edema ENT: No nasal bleeding or discharge. Mucous membranes pink and moist NECK: Trachea midline. No JVD. Left IJ CVL is clean dry and intact CARDIOVASCULAR: RRR. S1, S2 no S4.. No murmur RESPIRATORY: Essentially clear to auscultation bilaterally without wheezes rales or rhonchi. Right chest tube with minimal sanguinous output -20 cm H2O GASTROINTESTINAL: Abdomen soft, non-tender, nondistended. Hyperactive bowel sounds appreciated MUSCULOSKELETAL: Extremities with trace upper and lower extremity edema. NEUROLOGICAL: On Versed and fentanyl infusion positive cough and gag. Upward toes. Withdraws bilateral lower extremities. Date of Insertion: Nov 28, 2017 Line: Central Venous Catheter Side: Left Location: Internal, Jugular A/P Assessment and Plan Neuro/Psych: Acute encephalopathy secondary to diabetic ketoacidosis Anxiety disorder NOS Benzodiazepine use Possible eye infection Patient is written for propofol/fentanyl drips for sedation/analgesia while intubated. Continued on Midazolam infusion Goal of RASS 0 Daily sedation vacation-when cleared by neurology Dr. Neville Acetaminophen 650 mg by tube every 6 hours as needed fever CT brain 11/28 revealed Ventriculomegaly suggesting central cerebral atrophy versus hydrocephalus. Clinical correlation is recommended. No acute infarct, acute hemorrhage, midline shift or extra-axial fluid collections. She is on amitriptyline 10 mg daily at home. This has been held UDS negative MRI brain 11/29 revealed mild to moderate ventriculomegaly. EEG ordered 11/29. Repeat EEG 12/01- active seizures 11/30 levetiracetam 500 mg IV every 12 hours after 1 g bolus Neurology -Dr. Neville 12/02 Small amount yellowish serous drainage OU, right greater than left- ophthalmology consulted 12/02-lumbar puncture-Follow up results CV: History of hypertension Shock Elevated troponin Acute systolic heart failure ejection fraction 40% NSTEMI cardiomyopathy 12/01 Decreased 1/2 NS at 75 cc/hr CVP - 9 Phenylephrine drip and norepinephrine drip to maintain mean arterial pressure greater than equal to 65. Currently at 100 mcg/min and 9 mcg/min respectively. Attempt to wean down the phenylephrine drip off 12/02-vasopressin 0.04 units/hour weaned off Cardiology/Dr. Ham following Started on atorvastatin 10 mg by tube daily Continue aspirin 81 mg by tube daily 2D echocardiogram revealed EF around 40%. LV increased size. Septal hypokinesis. Repeat troponin the same decreased to 2.8 Patient is on irbesartan 150 mg daily at home and this is been held in light of acute hypotension 12/03-Phenylephrine currently being weaned off the patient continues on norepinephrine. Cardiology has signed off 12/03 obtain cortisol level. Obtain ammonia level in a.m. Follow-up ophthalmology recommendation Resp: Acute hypoxemic respiratory failure Hemoptysis-resolved Tobacco abuse/ongoing Iatrogenic PTX status post chest tube placement PRVC 16/450/08/23/39, will increase FiO2 to 50% 11/22 CXR-basilar consolidation small- moderate pleural effusion Ventilator bundle Albuterol/ipratropium aerosols every 6 hours with albuterol aerosols every 2 hours as needed dyspnea 12/03 Right chest tube in placed to waterseal 11/29 Status post chest tube placement see documentation Status post bronchoscopy 11/29. GI: Hypoalbuminemia Glucerna 1.5 goal 50 cc an hour-minimal residual Pantoprazole 40 mg IV daily for GI prophylaxis Docusate sodium/senna 1 tablet twice daily for bowel regimen 12/03 gallbladder ultrasound follow-up results : Méndez catheter has been placed for accurate I's and O's in a critically ill patient 12/01 Lasix 20 mg IV 1 dose Endo: Insulin-dependent diabetes mellitus type 1 uncontrolled Diabetic ketoacidosis - resolved Originally, patient received 3 L normal saline in the ED along with 3 refills and bicarbonate, 1 ampule of calcium gluconate. Beta hydroxybutyrate cleared 11/29 Insulin pump was disconnected 11/28. According to sister Evelyn Obrien, patient had received a new insulin pump within the past 48 hours. She has no history of DKA in the past to her knowledge TSH 0.38 Holding insulin detemir 8 U BID DUE to hypoglycemia. Continue SSI Novulog medium protocol with accucheck every 4 hours maintain euglycemia Renal: Acute kidney injury with history of normal renal function likely secondary to severe dehydration Urine eosinophils negative Renal ultrasound revealed no medical renal disease. Serial BMP Heme: Leukocytosis Macrocytic anemia Monitor CBC daily. Follow trends 12/03transfuse 1 unit of packed red blood cells Obtain posttransfusion CBC ID: Pneumonia Persistent leukocytosis BC x2, UA (-) inf A/B negative Started on vancomycin and piperacillin/tazobactam day #4 11/29 S/P bronchoscopy with sample sent from left lower lobe 11/29 Sputum (BAL)-gram negative rods Noted yellowish drainage bilateral eyes right greater than left-ophthalmology consulted ID consulted [id number] lumbar puncture MSK: PT eval and tx 1+ dependent edema FEN: Electrolyte abnormality Replace electrolytes as clinically indicated per protocol Monitor BMP Sodium level 135-all IV fluids mixed with 0.9 NS Access Right IJ CVL day #2 placed 11/28 ED. Discontinued 11/29 this patient partially pulled out with StatLock in place. Will replace with left IJ CVL today 11/29 to current day #4 Right femoral arterial line day #3 placed 11/29 12/03 hypocalcemia -calcium gluconate 2 g IV now Prophylaxis -GI -pantoprazole -DVT -SCD/ ( heparin SQ Critical Care: my billing statement This patient remains critically ill with one or more organ systems which are or may become a threat to life. I have spent in excess of my 30 minutes discontinuously in the care and management of this patient. This time is exclusive of procedures, and includes, but is not limited to, evaluation of the patient, review of the medical record, discussions with family, consultants, nursing staff, or respiratory therapy, and documentation in the medical record. 12/03 Discussed with [employer]Y STARCH SUPERVISOR (Yu) at bedside Physician Janice Alegria MD Dec 03, 2017 08:18
[2017-12-03 08:58] LABS: HEMATOCRIT 25.1 % (35.0-46.0); HEMOGLOBIN 8.5 GM/DL (11.6-15.3); MEAN CELL VOLUME 96.2 FL (80.0-100.0); MEAN CORPUSCULAR HEMOGLOBIN 32.5 PG (27.0-34.0); MEAN CORPUSCULAR HGB CONC 33.8 % (32.0-36.0); MEAN PLATELET VOLUME 8.2 FL (7.0-11.0); PLATELET COUNT 157 TH/MM3 (150-450); RED BLOOD COUNT 2.61 MIL/MM3 (4.00-5.30); RED CELL DISTRIBUTION WIDTH 13.3 % (11.6-17.2); WHITE BLOOD COUNT 11.7 TH/MM3 (4.0-11.0)
--- NOTE | 2017-12-03 09:29 | RADRPT ---
EXAM DATE/TIME: 12/03/2017 07:59 [facility] COMPARISON: No previous studies available for comparison. INDICATIONS : Cholecystitis. MEDICAL HISTORY : Diabetes. Anxiety. SURGICAL HISTORY : Cataract surgery. Bunionectomy. ENCOUNTER: Initial ACUITY: 1 day PAIN SCORE: Nonresponsive. LOCATION: Right upper quadrant MEASUREMENTS: LIVER: 14.7 cm length COMMON DUCT: 7 mm RIGHT KIDNEY: 10.2 x 5.8 x 5.1 cm FINDINGS: LIVER: Normal echotexture without focal lesion or ductal dilatation. Free fluid is identified adjacent to li victorino consistent with a small to moderate amount of ascites. COMMON DUCT: No intraluminal mass or stone visualized. GALLBLADDER: Contains no stones, demonstrates no wall thickening or pericholecystic fluid. Gallbladder is mildly distended measuring 9.4 cm in length. PANCREAS: The visualized portions are within normal limits. RIGHT KIDNEY: No evidence of hydronephrosis, stone, or mass. Bilateral pleural effusions are noted. CONCLUSION: 1. Ascites and bilateral pleural effusions. 2. Mildly distended gallbladder without evidence of wall thickening or cholelithiasis. 3. Otherwise unremarkable exam. Boo Cartwright MD on December 03, 2017 at 9:10 Board Certified Radiologist. This report was verified electronically.
--- NOTE | 2017-12-03 10:07 | HHI.PR ---
Addendum to Inpatient Note Addendum Reason: Additional Documentation Additional Information CSF not cw bact meningitis - dc ampicillin - change flagyl, CFTX to zosyn -cont vanco - cont acyuclovir untill PCR is back, d/c negative Gall Bladder Ultrasound 12/03/17 0000 Signed Impressions: Service Date/Time: Sunday, December 03, 2017 07:59 - CONCLUSION: 1. Ascites and bilateral pleural effusions. 2. Mildly distended gallbladder without evidence of wall thickening or cholelithiasis. 3. Otherwise unremarkable exam. Dr Emilio Driscoll to follow starting today Anh Childs MD Dec 03, 2017 10:07
[2017-12-03] MEDS: levETIRAcetam INJ 500 MG in SODIUM CHLORIDE 0.9% INJ 100 ML IV SCH ×2 (10:57→20:26)
[2017-12-03] MEDS: FOSPHENYTOIN SODIUM 100 MG PE/2 ML VIAL IV SCH ×2 (10:59→20:24)
[2017-12-03] MEDS: MULTIVITAMIN TAB PO SCH (11:08)
[2017-12-03] MEDS: SODIUM CHLORIDE 0.9% FLUSH 10 ML FLUSH IV FLUSH SCH ×3 (11:08→20:34)
[2017-12-03] MEDS: VANCOMYCIN 1,000 MG/NS 250 ML IV SCH ×4 (11:08→20:26)
[2017-12-03] MEDS: ASPIRIN 81 MG CHEW TAB CHEW SCH (11:08)
[2017-12-03] MEDS: DOCUSATE SODIUM 50 MG/SENNA 8.6 MG TAB PO SCH ×2 (11:09→20:27)
[2017-12-03] MEDS: CHLORHEXIDINE 0.12% (ORAL KIT) 15 ML CUP MT SCH ×2 (11:29→19:36)
[2017-12-03] MEDS: ARTIFICIAL TEARS OPTH SOLN 15 ML BTL EACH EYE SCH ×2 (11:31→13:08)
[2017-12-03] MEDS: PIPERACIL-TAZO 4.5 GM PREMIX 100 ML IV SCH ×3 (11:41→21:04)
[2017-12-03] MEDS: THIAMINE INJ 100 MG in SODIUM CHLORIDE 0.9% INJ 100 ML IV SCH (13:08)
--- NOTE | 2017-12-03 13:20 | PD.CONS ---
History of Present Illness Service Ophthalmology Consult Requested By Reason for Consult eye drainage Primary Care Physician Zunilda Dwyer M.D. Diagnoses: History of Present Illness 61 yo F with h/o DM type 1 uncontrolled insulin-dependent with retinopathy, hypertension, breast cancer was found unresponsive with altered mental status. During the workup, patient was noted to have a blood sugar of 808. She is currently not responding to any questions. Ophthalmology consulted to rule out eye infection. Past Family Social History Allergies: Coded Allergies: No Known Allergies (Unverified Allergy, Unknown, 11/28/17) Physical Exam Vital Signs Vital Signs Date Time Temp Pulse Resp B/P (MAP) Pulse Ox O2 Delivery O2 Flow Rate FiO2 12/03/17 11:14 96 100/66 12/03/17 11:00 100 50 12/03/17 10:15 88 110/68 12/03/17 09:10 96 106/72 12/03/17 08:00 100 19 104/54 (71) 100 114/58 (76) 12/03/17 07:50 100 50 12/03/17 07:00 88 16 101/57 (72) 100 122/58 (79) 12/03/17 07:00 100 Mechanical Ventilator 50 12/03/17 07:00 88 122/58 12/03/17 06:00 94 107/58 (74) 112/70 (84) 12/03/17 06:00 94 16 107/58 (74) 100 112/70 (84) 12/03/17 06:00 94 12/03/17 05:45 94 17 98/92 (94) 100 12/03/17 05:00 84 15 103/55 (71) 100 118/68 (85) 12/03/17 04:45 84 15 114/64 (81) 100 12/03/17 04:30 84 16 108/62 (77) 100 12/03/17 04:15 84 16 108/62 (77) 100 12/03/17 04:00 100 50 12/03/17 04:00 84 15 91/53 (66) 100 106/60 (75) 12/03/17 04:00 50 12/03/17 04:00 84 12/03/17 03:45 86 15 106/60 (75) 100 12/03/17 03:30 86 15 110/62 (78) 100 12/03/17 03:15 86 15 108/60 (76) 100 12/03/17 03:00 88 16 93/54 (67) 100 98/62 (74) 12/03/17 02:45 88 16 92/58 (69) 100 12/03/17 02:30 88 16 104/60 (75) 100 12/03/17 02:15 88 15 106/62 (77) 100 12/03/17 02:00 90 15 89/52 (64) 100 94/62 (73) 12/03/17 02:00 90 12/03/17 01:45 90 16 106/62 (77) 100 12/03/17 01:30 88 16 112/64 (80) 100 12/03/17 01:19 100 50 12/03/17 01:15 88 16 92/58 (69) 100 12/03/17 01:00 90 15 96/50 (65) 100 98/60 (73) 12/03/17 00:45 88 15 124/66 (85) 100 12/03/17 00:30 90 15 130/68 (88) 100 12/03/17 00:15 90 15 122/66 (84) 100 12/03/17 00:01 99.1 12/03/17 00:00 50 12/03/17 00:00 99.1 92 15 107/55 (72) 100 116/62 (80) 12/03/17 00:00 92 12/02/17 23:45 92 15 110/58 (75) 100 12/02/17 23:30 92 16 112/60 (77) 100 12/02/17 23:15 92 15 106/56 (73) 100 12/02/17 23:00 92 16 102/55 (71) 100 112/60 (77) 12/02/17 22:45 92 16 112/60 (77) 100 12/02/17 22:30 92 16 114/62 (79) 100 18 22:15 92 15 118/60 (79) 97 18 22:00 90 16 98/54 (69) 100 106/60 (75) 12/02/17 22:00 100 50 12/02/17 22:00 90 12/02/17 21:45 92 16 110/60 (77) 100 4/16/18 21:30 90 15 106/60 (75) 100 1618 21:15 94 15 88/54 (65) 100 41618 21:15 94 88/54 1618 21:00 96 16 81/45 (57) 100 90/54 (66) 1618 20:45 92 16 114/60 (78) 100 18 20:41 92 15 138/71 (93) 100 156/84 (108) 18 20:30 92 15 96/60 (72) 100 18 20:15 92 15 102/60 (74) 100 12/02/17 20:10 100 50 18 20:07 94 138/72 12/02/17 20:00 94 12/02/17 20:00 50 12/02/17 20:00 100 Mechanical Ventilator 50 12/02/17 20:00 99.5 94 15 90/50 (63) 100 90/60 (70) 12/02/17 19:45 94 20 100/66 (77) 100 12/02/17 19:39 100 40 18 19:30 92 98/64 18 19:30 92 98/64 16/18 19:30 92 16 98/64 (75) 100 18 19:15 94 15 98/64 (75) 100 18 19:00 92 16 101/55 (70) 100 104/68 (80) 1618 18:00 86 96/61 (73) 18 18:00 94 15 89/60 (70) 100 18 18:00 86 18 17:50 100 50 18 16:07 90 15 95/56 (69) 100 101/59 (73) 1618 16:00 79 18 16:00 50 16/18 16:00 100 50 16/18 14:45 100 50 16/18 14:00 78 41618 13:30 92 16 101/56 (71) 100 104/52 (69) Physical Exam Va unable EOM unable CVF unable Pupils 2-1 no APD OU IOP normal to palpation OU Anterior exam OD - normal eyelid, conj chemosis, K clear, AC deep, pupil round, lens clear OS - normal eyelid, conj chemosis, K clear, AC deep, pupil round, lens clear Laboratory Laboratory Tests Test 12/02/17 15:29 12/03/17 05:15 12/03/17 08:30 CSF Volume (Tube 1) 2.5 CSF Supernatant Color (tube 1) CLEAR CSF Gross Blood (Tube 1) 0 CSF Volume (Tube 2) 2.8 CSF Supernatant Color (tube 2) CLEAR CSF Gross Blood (Tube 2) 0 CSF Volume (Tube 3) 3.0 CSF Supernatant Color (tube 3) CLEAR CSF Gross Blood (Tube 3) 0 CSF Volume (Tube 4) 2.5 CSF Supernatant Color (tube 4) CLEAR CSF Gross Blood (Tube 4) 0 CSF WBC (Tube 4) 6 CSF RBC (Tube 4) 28 CSF Neutrophils 2 CSF Lymphocytes 96 CSF Monocytes 2 CSF Glucose 124 CSF Total Protein 32.1 White Blood Count 9.9 11.7 Red Blood Count 2.67 2.61 Hemoglobin 8.6 8.5 Hematocrit 25.8 25.1 Mean Corpuscular Volume 96.6 96.2 Mean Corpuscular Hemoglobin 32.3 32.5 Mean Corpuscular Hemoglobin Concent 33.4 33.8 Red Cell Distribution Width 13.1 13.3 Platelet Count 162 157 Mean Platelet Volume 8.2 8.2 Neutrophils (%) (Auto) 70.5 Lymphocytes (%) (Auto) 16.1 Monocytes (%) (Auto) 10.0 Eosinophils (%) (Auto) 2.9 Basophils (%) (Auto) 0.5 Neutrophils # (Auto) 7.0 Lymphocytes # (Auto) 1.6 Monocytes # (Auto) 1.0 Eosinophils # (Auto) 0.3 Basophils # (Auto) 0.0 CBC Comment DIFF FINAL Differential Comment Blood Urea Nitrogen 10 Creatinine 0.42 Random Glucose 101 Total Protein 5.1 Albumin 1.8 Calcium Level 6.9 Magnesium Level 2.3 Alkaline Phosphatase 92 Aspartate Amino Transf (AST/SGOT) 38 Alanine Aminotransferase (ALT/SGPT) 31 Total Bilirubin 0.3 Sodium Level 145 Potassium Level 3.9 Chloride Level 110 Carbon Dioxide Level 29.6 Anion Gap 5 Estimat Glomerular Filtration Rate 152 Protein Corrected Calcium 7.9 Phenytoin (Dilantin) Level 12.2 Phenobarbital Level 6.9 Random Cortisol 17.5 Date/Time Source Procedure Growth Status 11/28/17 18:55 Blood Peripheral Aerobic Blood Culture - Final NO GROWTH IN 5 DAYS Complete 11/28/17 18:55 Blood Peripheral Anaerobic Blood Culture - Final NO GROWTH IN 5 DAYS Complete 12/02/17 15:29 Cerebral Spinal Fluid Lumbar Puncture Gram Stain - Final Resulted 12/02/17 15:29 Cerebral Spinal Fluid Lumbar Puncture CSF Culture - Preliminary NO GROWTH IN 24 HOURS. Resulted 11/29/17 20:00 Nasal Aspirate Influenza Types A,B Antigen (KELY) - Final NEGATIVE FOR FLU A AND B ANTIGEN.... Complete 11/28/17 15:28 Urine Catheterized Urine Urine Culture - Final NO GROWTH IN 48 HOURS. Complete Result Diagram: 12/03/17 0830 12/03/17 0515 Assessment and Plan Problem List: (1) Chemosis of conjunctiva of both eyes ICD Codes: H11.423 - Conjunctival edema, bilateral Plan: No infection present on exam. Swollen conjunctival tissue is from exposure of eyes to the air while the patient's eyes remain open and dry out. Generous Lacri-Lube ointment QID OU. Jennifer Hobson MD Dec 03, 2017 13:20
[2017-12-03] MEDS: fentaNYL DRIP 250 ML IV PRN (13:58)
[2017-12-03] MEDS: VASOPRESSIN INJ 40 UNITS in DEXTROSE 5% IN WATER 100ML INJ 98 ML IV SCH ×6 (16:36→19:29)
[2017-12-03] MEDS: ARTIFICIAL TEARS OPTH OINT 3.5 APPLIC/3.5 GM TUBO EACH EYE SCH ×2 (18:32→20:25)
[2017-12-03] MEDS: RESP: ALBUTEROL 2.5 MG/3 ML NEB (PRN) INH (19:51)
[2017-12-03] MEDS: PANTOPRAZOLE SODIUM 40 MG VIAL IV PUSH SCH (20:24)
[2017-12-03] MEDS: ATORVASTATIN 10 MG TAB PO SCH (20:27)
[2017-12-04] VITALS (61 sets, daily range): BP systolic 92–158; BP diastolic 47–92; PULSE 90–126; RESP 15–27; TEMP 98.3–99.4; O2SAT 98–100
[2017-12-04] MEDS: INSULIN ASPART SUPPLEMENTAL SCALE SQ SCH ×7 (00:51→23:39)
[2017-12-04] MEDS: CHLORHEXIDINE GLUCONATE 2 % 1 PACK (2 CLOTHS) TOP SCH (03:05)
[2017-12-04] MEDS: PIPERACIL-TAZO 4.5 GM PREMIX 100 ML IV SCH ×4 (04:57→23:07)
[2017-12-04] MEDS: SODIUM CHLOR 0.9% 1000 ML INJ 1,000 ML IV SCH (04:57)
[2017-12-04] MEDS: ACYCLOVIR IV SCH ×3 (05:03→22:15)
[2017-12-04] MEDS: SODIUM CHLORIDE 0.9% IV SCH ×3 (05:03→22:15)
[2017-12-04 05:23] LABS: AUTOMATED NEUTROPHIL # 7.7 TH/MM3 (1.8-7.7); BASOPHIL # 0.1 TH/MM3 (0-0.2); BASOPHIL % 0.6 % (0.0-2.0); EOSINOPHIL # 0.2 TH/MM3 (0-0.4); EOSINOPHIL % 2.2 % (0.0-4.0); HEMATOCRIT 30.8 % (35.0-46.0); HEMOGLOBIN 10.1 GM/DL (11.6-15.3); LYMPH % 9.2 % (9.0-44.0); LYMPHOCYTE # 0.9 TH/MM3 (1.0-4.8); MEAN CELL VOLUME 95.2 FL (80.0-100.0); MEAN CORPUSCULAR HEMOGLOBIN 31.1 PG (27.0-34.0); MEAN CORPUSCULAR HGB CONC 32.7 % (32.0-36.0); MEAN PLATELET VOLUME 8.9 FL (7.0-11.0); MONO % 13.1 % (0.0-8.0); MONOCYTE # 1.3 TH/MM3 (0-0.9); NEUT % 74.9 % (16.0-70.0); PLATELET COUNT 203 TH/MM3 (150-450); RED BLOOD COUNT 3.23 MIL/MM3 (4.00-5.30); RED CELL DISTRIBUTION WIDTH 14.1 % (11.6-17.2); WHITE BLOOD COUNT 10.2 TH/MM3 (4.0-11.0)
[2017-12-04 06:27] LABS: BICARBONATE 27.3 MEQ/L (21.0-32.0); CALCIUM 7.4 MG/DL (8.5-10.1); CREATININE 0.45 MG/DL (0.50-1.00); MAGNESIUM 2.2 MG/DL (1.5-2.5); PHENYTOIN (DILANTIN) 11.1 MCG/ML (10.0-20.0); PHOSPHORUS 2.6 MG/DL (2.5-4.9)
--- NOTE | 2017-12-04 07:02 | RADRPT ---
EXAM DATE/TIME: 12/04/2017 06:30 [facility] COMPARISON: CHEST SINGLE AP, December 03, 2017, 5:33. INDICATIONS : Respiratory distress. MEDICAL HISTORY : Diabetes mellitus type I. SURGICAL HISTORY : None. ENCOUNTER: Subsequent ACUITY: 1 week PAIN SCORE: Non-responsive. LOCATION: Bilateral chest FINDINGS: AP semi-erect portable view of the chest demonstrates interval retraction of the endotracheal tube wi th the tip now positioned at the level of the clavicles. Central line with the tip overlying the mid SVC. Stable appearance of bilateral hazy opacity of the lungs, right greater than left. Obscuration o f the left hemidiaphragm consistent with atelectasis/consolidation. There is a chest tube overlying t he right hemithorax. NG tube overlying the stomach. CONCLUSION: Interval retraction of the endotracheal tube with the tip now at the level of the clavicles. Stable l giovanna exam. Tatyana Zhang MD on December 04, 2017 at 6:57 Board Certified Radiologist. This report was verified electronically.
[2017-12-04 07:30] LABS: CALCIUM-PROTEIN CORRECTED 8.5 MG/DL (8.5-10.1); TOTAL PROTEIN 5.2 GM/DL (6.4-8.2)
[2017-12-04] MEDS: RESP: ALBUTEROL 2.5 MG/3 ML NEB (PRN) INH ×3 (07:30→21:54)
[2017-12-04] MEDS: levETIRAcetam INJ 500 MG in SODIUM CHLORIDE 0.9% INJ 100 ML IV SCH ×2 (08:30→20:34)
[2017-12-04] MEDS: DOCUSATE SODIUM 50 MG/SENNA 8.6 MG TAB PO SCH ×2 (08:30→20:36)
[2017-12-04] MEDS: THIAMINE INJ 100 MG in SODIUM CHLORIDE 0.9% INJ 100 ML IV SCH (08:30)
[2017-12-04] MEDS: MULTIVITAMIN TAB PO SCH (08:30)
[2017-12-04] MEDS: ARTIFICIAL TEARS OPTH OINT 3.5 APPLIC/3.5 GM TUBO EACH EYE SCH ×4 (08:31→20:33)
[2017-12-04] MEDS: ASPIRIN 81 MG CHEW TAB CHEW SCH (08:31)
[2017-12-04] MEDS: FOSPHENYTOIN SODIUM 100 MG PE/2 ML VIAL IV SCH ×2 (08:35→20:33)
[2017-12-04] MEDS: CHLORHEXIDINE 0.12% (ORAL KIT) 15 ML CUP MT SCH ×2 (08:36→20:33)
[2017-12-04] MEDS ORDERED: VANCOMYCIN TROUGH ONE (08:45)
[2017-12-04] MEDS: SODIUM CHLORIDE 0.9% FLUSH 10 ML FLUSH IV FLUSH SCH ×3 (10:08→20:34)
[2017-12-04 10:37] LABS: HSV 1,PCR Negative (Negative)
[2017-12-04] MEDS ORDERED: PHARMACY ORDERED LAB ONE (11:30)
[2017-12-04] MEDS: VANCOMYCIN 1,000 MG/NS 250 ML IV SCH ×2 (11:47)
[2017-12-04] MEDS ORDERED: ACETAMINOPHEN 1000 MG/100 ML 100 ML IV ONE (13:15)
--- NOTE | 2017-12-04 17:38 | HHI.IDPN ---
Subjective Subjective Remarks ID FU DR FERRELL LOW GRADE FEVER SEDATED ON VENT + EEG TODAY Antibiotics ACYCLOVIR VANCOMYCIN ZOSYN Lines LEFT IJ 11/29 CVL Allergies: Coded Allergies: No Known Allergies (Unverified Allergy, Unknown, 11/28/17) Objective . Vital Signs Date Time Temp Pulse Resp B/P (MAP) Pulse Ox O2 Delivery O2 Flow Rate FiO2 12/04/17 17:01 100 50 12/04/17 17:00 99.3 94 15 104/54 (71) 100 112/62 (79) 12/04/17 16:00 90 12/04/17 15:00 92 16 93/50 (64) 100 100/82 (88) 12/04/17 15:00 92 12/04/17 14:01 100 16 92/48 (63) 100 96/60 (72) 12/04/17 14:00 100 12/04/17 13:56 100 50 12/04/17 13:01 114 20 107/52 (70) 100 104/50 (68) 12/04/17 13:00 114 12/04/17 12:01 124 20 112/54 (73) 100 106/54 (71) 12/04/17 12:00 50 12/04/17 12:00 126 12/04/17 11:56 125 112/56 12/04/17 11:01 122 21 111/52 (71) 100 112/58 (76) 12/04/17 11:00 122 12/04/17 11:00 122 112/58 12/04/17 10:30 100 50 12/04/17 10:01 120 21 119/56 (77) 100 114/64 (81) 12/04/17 10:00 120 12/04/17 10:00 120 112/62 12/04/17 09:01 114 27 107/50 (69) 99 116/52 (73) 12/04/17 08:01 99.4 106 16 110/50 (70) 100 112/52 (72) 12/04/17 08:00 50 12/04/17 08:00 104 12/04/17 07:24 100 50 12/04/17 07:01 106 16 106/51 (69) 100 96/92 (93) 12/04/17 07:00 100 Mechanical Ventilator 50 12/04/17 06:40 108 108/52 12/04/17 06:30 50 12/04/17 06:30 114 23 158/74 (102) 99 12/04/17 06:25 98 50 12/04/17 06:16 106 15 106/50 (68) 100 108/50 (69) 18 06:01 104 16 109/51 (70) 100 112/52 (72) 12/04/17 06:01 104 109/51 (70) 112/52 (72) 12/04/17 06:00 104 12/04/17 05:46 102 15 107/50 (69) 100 112/52 (72) 12/04/17 05:31 102 15 105/49 (67) 100 112/52 (72) 12/04/17 05:16 100 15 107/51 (69) 100 118/54 (75) 12/04/17 05:01 92 16 114/55 (74) 100 126/56 (79) 12/04/17 04:46 96 16 114/55 (74) 100 126/56 (79) 12/04/17 04:31 96 15 112/52 (72) 100 120/54 (76) 12/04/17 04:16 94 15 112/53 (72) 100 124/56 (78) 12/04/17 04:01 98.3 92 16 112/53 (72) 100 128/56 (80) 12/04/17 04:00 100 50 12/04/17 04:00 92 12/04/17 04:00 50 12/04/17 03:46 92 16 105/53 (70) 100 120/54 (76) 12/04/17 03:31 98 16 126/54 (78) 100 18 03:16 102 15 100/47 (64) 100 100/48 (65) 12/04/17 03:01 102 15 101/50 (67) 100 102/48 (66) 12/04/17 02:46 100 16 102/53 (69) 100 102/50 (67) 18 02:31 102 15 102/53 (69) 100 106/52 (70) 12/04/17 02:16 98 16 100/52 (68) 100 100/50 (67) 12/04/17 02:01 100 16 96/48 (64) 100 96/48 (64) 12/04/17 02:00 100 12/04/17 01:46 102 15 99/47 (64) 100 96/48 (64) 12/04/17 01:31 100 16 102/48 (66) 100 102/50 (67) 12/04/17 01:18 100 50 12/04/17 01:16 96 15 106/47 (66) 100 110/54 (72) 12/04/17 01:01 94 15 112/50 (70) 100 116/56 (76) 12/04/17 00:46 94 15 106/51 (69) 100 110/54 (72) 12/04/17 00:31 100 15 100 106/52 (70) 12/04/17 00:16 98 15 106/48 (67) 100 104/52 (69) 12/04/17 00:01 98.8 102 15 107/48 (67) 100 104/52 (69) 12/04/17 00:00 50 12/04/17 00:00 102 12/03/17 23:46 100 15 102/49 (66) 100 104/52 (69) 12/03/17 23:31 102 15 103/52 (69) 100 106/54 (71) 12/03/17 23:16 102 16 104/48 (66) 100 104/54 (71) 12/03/17 23:01 100 15 98/46 (63) 100 96/52 (67) 12/03/17 22:46 98 15 95/44 (61) 100 60/52 (55) 12/03/17 22:31 96 15 88/64 (72) 100 18 22:22 98 82/56 18 22:16 100 15 91/44 (60) 100 88/72 (77) 18 22:08 100 50 12/03/17 22:01 102 15 94/44 (61) 100 62/54 (57) 18 22:00 102 18 21:54 102 16 90/45 (60) 100 76/56 (63) 18 21:46 106 17 98/52 (67) 100 104/58 (73) 12/03/17 21:31 108 16 98/46 (63) 100 100/50 (67) 12/03/17 21:16 106 16 98/43 (61) 100 98/48 (65) 18 21:04 104 110/54 18 21:01 104 16 102/45 (64) 100 104/52 (69) 18 20:46 100 15 102/46 (64) 100 106/52 (70) 18 20:31 98 16 105/48 (67) 100 112/54 (73) 18 20:26 98 112/54 18 20:16 98 16 103/50 (67) 100 110/52 (71) 12/03/17 20:01 97.5 96 21 100/48 (65) 100 116/54 (74) 18 20:00 50 12/03/17 20:00 96 12/03/17 19:48 100 50 12/03/17 19:46 88 16 101/45 (63) 100 116/56 (76) 12/03/17 19:35 86 112/54 12/03/17 19:31 88 15 101/47 (65) 100 120/56 (77) 12/03/17 19:16 84 15 99/53 (68) 100 126/58 (80) 12/03/17 19:01 84 15 122/58 (79) 100 12/03/17 19:00 100 Mechanical Ventilator 50 12/03/17 18:00 96 17 123/58 (79) 100 148/74 (98) 12/03/17 18:00 96 12/03/17 18:00 96 123/58 (79) 120/58 (78) 12/04/1718 12/05/17 15:00 23:00 07:00 Intake Total 801 ml Balance 801 ml IV Total 801 ml . Laboratory Tests Test 12/03/17 05:15 12/03/17 08:30 12/04/17 04:55 White Blood Count 9.9 TH/MM3 11.7 TH/MM3 10.2 TH/MM3 Red Blood Count 2.67 MIL/MM3 2.61 MIL/MM3 3.23 MIL/MM3 Hemoglobin 8.6 GM/DL 8.5 GM/DL 10.1 GM/DL Hematocrit 25.8 % 25.1 % 30.8 % Mean Corpuscular Volume 96.6 FL 96.2 FL 95.2 FL Mean Corpuscular Hemoglobin 32.3 PG 32.5 PG 31.1 PG Mean Corpuscular Hemoglobin Concent 33.4 % 33.8 % 32.7 % Red Cell Distribution Width 13.1 % 13.3 % 14.1 % Platelet Count 162 TH/MM3 157 TH/MM3 203 TH/MM3 Mean Platelet Volume 8.2 FL 8.2 FL 8.9 FL Neutrophils (%) (Auto) 70.5 % 74.9 % Lymphocytes (%) (Auto) 16.1 % 9.2 % Monocytes (%) (Auto) 10.0 % 13.1 % Eosinophils (%) (Auto) 2.9 % 2.2 % Basophils (%) (Auto) 0.5 % 0.6 % Neutrophils # (Auto) 7.0 TH/MM3 7.7 TH/MM3 Lymphocytes # (Auto) 1.6 TH/MM3 0.9 TH/MM3 Monocytes # (Auto) 1.0 TH/MM3 1.3 TH/MM3 Eosinophils # (Auto) 0.3 TH/MM3 0.2 TH/MM3 Basophils # (Auto) 0.0 TH/MM3 0.1 TH/MM3 CBC Comment DIFF FINAL DIFF FINAL Differential Comment Laboratory Tests Test 12/03/17 05:15 12/03/17 08:30 12/04/17 04:55 Blood Urea Nitrogen 10 MG/DL 14 MG/DL Creatinine 0.42 MG/DL 0.45 MG/DL Random Glucose 101 MG/DL 237 MG/DL Total Protein 5.1 GM/DL 5.2 GM/DL Albumin 1.8 GM/DL Calcium Level 6.9 MG/DL 7.4 MG/DL Magnesium Level 2.3 MG/DL 2.2 MG/DL Alkaline Phosphatase 92 U/L Aspartate Amino Transf (AST/SGOT) 38 U/L Alanine Aminotransferase (ALT/SGPT) 31 U/L Total Bilirubin 0.3 MG/DL Sodium Level 145 MEQ/L 145 MEQ/L Potassium Level 3.9 MEQ/L 3.9 MEQ/L Chloride Level 110 MEQ/L 112 MEQ/L Carbon Dioxide Level 29.6 MEQ/L 27.3 MEQ/L Anion Gap 5 MEQ/L 6 MEQ/L Estimat Glomerular Filtration Rate 152 ML/MIN 141 ML/MIN Protein Corrected Calcium 7.9 MG/DL 8.5 MG/DL Random Cortisol 17.5 MCG/DL Phosphorus Level 2.6 MG/DL Ammonia 22 MCMOL/L Microbiology Date/Time Source Procedure Growth Status 12/02/17 15:29 Cerebral Spinal Fluid Lumbar Puncture Gram Stain - Final Resulted 12/02/17 15:29 Cerebral Spinal Fluid Lumbar Puncture CSF Culture - Preliminary NO GROWTH IN 48 HOURS. Resulted Physical Exam SEDATED ON VENT ORALLY INTUBATED +LEFT IJ CHEST : LUNGS ARE COARSE EQUAL CARDIAC: RRR ABD: SOFT ACTIVE EXT + EDEMA Assessment & Plan Diagnosis: (1) DKA (diabetic ketoacidoses) ICD Codes: E13.10 - Other specified diabetes mellitus with ketoacidosis without coma Status: Acute (2) Type 1 diabetes ICD Codes: E10.9 - Type 1 diabetes mellitus without complications Status: Acute (3) UTI (urinary tract infection) ICD Codes: N39.0 - Urinary tract infection, site not specified Status: Acute (4) Respiratory failure ICD Codes: J96.90 - Respiratory failure, unspecified, unspecified whether with hypoxia or hypercapnia (5) Seizure cerebral ICD Codes: I67.89 - Other cerebrovascular disease Status: Acute (6) Encephalopathy, metabolic ICD Codes: G93.41 - Metabolic encephalopathy Status: Acute Plan: ON ACYCLOVIR/ ZOSYN / VANCOMYCIN CULTURES NEGATIVE CSF FAIRLY BENIGN MAY BE ABLE TO WEAN ABX SOON Problem Qualifiers (1) DKA (diabetic ketoacidoses): Qualified Codes: E10.11 - Type 1 diabetes mellitus with ketoacidosis with coma Sveta Duran Dec 04, 2017 17:38
--- NOTE | 2017-12-04 18:24 | HHI.CCPN ---
Subjective Remarks/Hospital Course This is a 51-year-old female. Date of admission 11/28/2017. Past medical history includes diabetes mellitus type 1 uncontrolled insulin- dependent with retinopathy on home insulin pump, hypertension, allergic rhinitis and chronic benzodiazepine use. She also has history of breast cancer on raloxifene she originally presented to [facility] ED During the workup, patient was noted to have a blood sugar of 808. Elevated acetone. Sodium 135. Potassium 6.0. Ferritin 2.1. Leukocytosis 25,000. Macrocytic anemia. UA negative for infectious etiology. She was bolused with 3 L of 0.9% NaCl IV fluid bolus. She is received 3 ampules of sodium bicarbonate and 1 g calcium gluconate. Chest x-ray post procedure revealed the CT scan of the head is read by the radiologist as ventriculomegaly but otherwise no acute findings. 11/29: Patient had nonrebreather off all night. PTX now 8 mm. Yells "Help me " "I don't know" Gap has closed, will transition back to SQ insulin if able to pass swallow. Replacing lytes. SUBJECTIVE: 11/30: Patient opens eyes to voice. Leftward gaze. Frequent blinking. Withdraws to stimulation bilateral lower extremities. T-max 99.5. Remains on norepinephrine and phenylephrine drips. MRI brain revealed ventriculomegaly. No acute signs of CVA. Echocardiogram EF 40%. 12/01: Afebrile. Patient remains off sedation approximately 24 hours nonresponsive. EEG in process. BAL revealed gram-negative rods the patient continues on Zosyn. The patient remains on vasopressors norepinephrine, vasopressin, and phenylephrine. Versed infusion restarted secondary to seizure activity noted on repeat EEG this a.m.. 12/02: Afebrile. The patient is scheduled for lumbar puncture this a.m., INR 1.0 patient has been off subcu heparin approximately 3 days. The patient continues on Versed and fentanyl infusions to maintain ventilator synchrony and avoidance of subclinical seizures which were noted on the EEG yesterday. The patient continues on multiple vasopressors to include norepinephrine and phenylephrine and vasopressin. Vasopressin currently being weaned off. The patient continues to have persistent leukocytosis though it is slightly downtrending plan for ID consult today appreciate recommendations. Bronchial washings resulted E. coli, currently patient continues on Zosyn. Patient was noted to have a positive fluid balance yesterday the patient received 20 mg of Lasix with adequate diuresis the patient noted to have a sodium level slightly decreased at 135 IV fluids mixed in 0.9 normal saline. 12/03: No acute events overnight lumbar puncture performed yesterday results pending. Dilantin level therapeutic. Phenobarbital level pending. Patient off vasopressin 24 hours. Phenylephrine currently being weaned off. Patient noted to be anemic 1 unit packed cells will be transfused today no pneumothorax chest tube now placed to waterseal today. 12/04: T-max 99.4. Repeat EEG performed today. Patient now withdrawing to pain 4 extremities, and open eyes to painful stimulus. Patient noted to move bilateral lower extremities 1 this shift. Patient tolerating tube feeds, overbreathing vent will begin CPAP trials in the a.m. if clinically stable. Phenylephrine completely discontinued overnight. Norepinephrine has been decreased to 3 mics/min. hemoglobin stable. Objective Vital Signs Date Time Temp Pulse Resp B/P (MAP) Pulse Ox O2 Delivery O2 Flow Rate FiO2 12/04/17 17:01 100 50 12/04/17 17:00 99.3 94 15 104/54 (71) 112/62 (79) 12/04/17 07:00 Mechanical Ventilator Intake and Output 12/04/17 12/04/17 12/05/17 08:00 16:00 00:00 Intake Total 1750 ml 551 ml 200 ml Output Total 500 ml Balance 1250 ml 551 ml 200 ml Result Diagram: 12/04/17 0455 12/04/17 0455 Imaging Last Impressions Chest X-Ray 12/02/17 0400 Signed Impressions: Service Date/Time: Saturday, December 02, 2017 04:17 - CONCLUSION: No significant change. Uziel Murry MD Renal Ultrasound 11/29/17 1656 Signed Impressions: Service Date/Time: Wednesday, November 29, 2017 13:16 - CONCLUSION: 1. Both kidneys are sonographically normal without hydronephrosis or nephrolithiasis. 2. Very abnormal appearance of the gallbladder with mural thickening and minimal pericholecystic fluid Dani Titus MD Brain MRI 11/29/17 0000 Signed Impressions: Service Date/Time: Wednesday, November 29, 2017 13:27 - CONCLUSION: 1. Mild diffuse ventriculomegaly. Clinical correlation for normal pressure hydrocephalus is recommended. 2. Qzlz-ah-weoqczwm periventricular small vessel ischemic white matter demyelination, out of proportion for age. Aly Leigh MD Head CT 11/28/17 0000 Signed Impressions: Service Date/Time: November 15:46 - CONCLUSION: 1. Ventriculomegaly suggesting central cerebral atrophy versus hydrocephalus. Clinical correlation is recommended. 2. No acute infarct, acute hemorrhage, midline shift or extra-axial fluid collections. Dev Christopher MD Last Impressions Chest X-Ray 12/01/17 0600 Signed Impressions: Service Date/Time: Friday, December 01, 2017 03:56 - CONCLUSION: 1. Patchy alveolar disease characteristic of edema or pneumonia. There has been no significant change when compared to the prior exam. Patrick Hamm MD Renal Ultrasound 11/29/17 1656 Signed Impressions: Service Date/Time: Wednesday, November 29, 2017 13:16 - CONCLUSION: 1. Both kidneys are sonographically normal without hydronephrosis or nephrolithiasis. 2. Very abnormal appearance of the gallbladder with mural thickening and minimal pericholecystic fluid Dani Titus MD Brain MRI 11/29/17 0000 Signed Impressions: Service Date/Time: Wednesday, November 29, 2017 13:27 - CONCLUSION: 1. Mild diffuse ventriculomegaly. Clinical correlation for normal pressure hydrocephalus is recommended. 2. Bsym-nh-uihupkpr periventricular small vessel ischemic white matter demyelination, out of proportion for age. Aly Leigh MD Head CT 11/28/17 0000 Signed Impressions: Service Date/Time: November 15:46 - CONCLUSION: 1. Ventriculomegaly suggesting central cerebral atrophy versus hydrocephalus. Clinical correlation is recommended. 2. No acute infarct, acute hemorrhage, midline shift or extra-axial fluid collections. Dev Christopher MD Last Impressions Renal Ultrasound 11/29/17 1656 Signed Impressions: Service Date/Time: Wednesday, November 29, 2017 13:16 - CONCLUSION: 1. Both kidneys are sonographically normal without hydronephrosis or nephrolithiasis. 2. Very abnormal appearance of the gallbladder with mural thickening and minimal pericholecystic fluid Dani Titus MD Chest X-Ray 11/29/17 1102 Signed Impressions: Service Date/Time: Wednesday, November 29, 2017 11:03 - CONCLUSION: Line in good position.. Ousmane Bird MD FACR Brain MRI 11/29/17 0000 Signed Impressions: Service Date/Time: Wednesday, November 29, 2017 13:27 - CONCLUSION: 1. Mild diffuse ventriculomegaly. Clinical correlation for normal pressure hydrocephalus is recommended. 2. Uxuf-gy-[id number] periventricular small vessel ischemic white matter demyelination, out of proportion for age. Aly Leigh MD Head CT 11/28/17 0000 Signed Impressions: Service Date/Time: November 15:46 - CONCLUSION: 1. Ventriculomegaly suggesting central cerebral atrophy versus hydrocephalus. Clinical correlation is recommended. 2. No acute infarct, acute hemorrhage, midline shift or extra-axial fluid collections. Dev Christopher MD Procedures 12/02-planned lumbar puncture Objective Remarks GENERAL: 61-year-old female critically ill currently orotracheally intubated SKIN: Warm and dry. No rash HEAD: Atraumatic. Normocephalic. EYES: Pupils equal and round about 2 mm bilaterally reactive. No scleral icterus. No injection, some yellowish drainage noted left eye. Bilateral scleral edema ENT: No nasal bleeding or discharge. Mucous membranes pink and moist NECK: Trachea midline. No JVD. Left IJ CVL is clean dry and intact CARDIOVASCULAR: RRR. S1, S2 no S4.. No murmur RESPIRATORY: Essentially clear to auscultation bilaterally without wheezes rales or rhonchi. Right chest tube to waterseal GASTROINTESTINAL: Abdomen soft, non-tender, nondistended. Hyperactive bowel sounds appreciated MUSCULOSKELETAL: Extremities with trace upper and lower extremity edema. NEUROLOGICAL: Low-dose fentanyl 30 mics/hour, patient overbreathing the vent positive cough and gag. Upward toes. Withdraws extremities 4 to painful stimuli, and eye opening to painful stimuli. Date of Insertion: Nov 28, 2017 Line: Central Venous Catheter Side: Left Location: Internal, Jugular A/P Assessment and Plan Neuro/Psych: Acute encephalopathy secondary to diabetic ketoacidosis Anxiety disorder NOS Benzodiazepine use Possible eye infection Low-dose fentanyl 30 mics/hour to maintain ventilator synchrony, pain control Goal of RASS 0 Daily sedation vacation-when cleared by neurology Dr. Neville Acetaminophen 650 mg by tube every 6 hours as needed fever CT brain 11/28 revealed Ventriculomegaly suggesting central cerebral atrophy versus hydrocephalus. Clinical correlation is recommended. No acute infarct, acute hemorrhage, midline shift or extra-axial fluid collections. She is on amitriptyline 10 mg daily at home. This has been held UDS negative MRI brain 11/29 revealed mild to moderate ventriculomegaly. EEG ordered 11/29. Repeat EEG 12/01- active seizures 11/30 levetiracetam 500 mg IV every 12 hours after 1 g bolus Neurology -Dr. Neville 12/02 Ophthalmology consulted 12/02-lumbar puncture 12/03-cortisol level 17 ammonia level 22 CV: History of hypertension Shock Elevated troponin Acute systolic heart failure ejection fraction 40% NSTEMI cardiomyopathy CVP - 9 Norepinephrine drip @ 3 mcg/min to maintain mean arterial pressure greater than equal to 65. 12/02-vasopressin 0.04 units/hour weaned off Cardiology/Dr. Ham following Started on atorvastatin 10 mg by tube daily Continue aspirin 81 mg by tube daily 2D echocardiogram revealed EF around 40%. LV increased size. Septal hypokinesis. Repeat troponin the same decreased to 2.8 Patient is on irbesartan 150 mg daily at home and this is been held in light of acute hypotension 12/03- Cardiology has signed off 12/03 IV fluids NS discontinued Resp: Acute hypoxemic respiratory failure Hemoptysis-resolved Tobacco abuse/ongoing Iatrogenic PTX status [facility], will increase FiO2 to 50% 11/22 CXR-basilar consolidation small- moderate pleural effusion Ventilator bundle Albuterol/ipratropium aerosols every 6 hours with albuterol aerosols every 2 hours as needed dyspnea 12/03 Right chest tube in placed to waterseal 11/29 Status post chest tube placement see documentation Status post bronchoscopy 11/29. GI: Hypoalbuminemia Glucerna 1.5 goal 50 cc an hour-minimal residual Pantoprazole 40 mg IV daily for GI prophylaxis Docusate sodium/senna 1 tablet twice daily for bowel regimen 12/03 gallbladder ultrasound follow-up results : Méndez catheter has been placed for accurate I's and O's in a critically ill patient 12/01 Lasix 20 mg IV 1 dose Endo: Insulin-dependent diabetes mellitus type 1 uncontrolled Diabetic ketoacidosis - resolved Originally, patient received 3 L normal saline in the ED along with 3 refills and bicarbonate, 1 ampule of calcium gluconate. Beta hydroxybutyrate cleared 11/29 Insulin pump was disconnected 11/28. According to sister Evelyn Obrien, patient had received a new insulin pump within the past 48 hours. She has no history of DKA in the past to her knowledge TSH 0.38 Holding insulin detemir 8 U BID DUE to hypoglycemia. Continue SSI Novulog medium protocol with accucheck every 4 hours maintain euglycemia Renal: Acute kidney injury with history of normal renal function likely secondary to severe dehydration Urine eosinophils negative Renal ultrasound revealed no medical renal disease. Serial BMP Heme: Leukocytosis Macrocytic anemia Monitor CBC daily. Follow trends 12/03 transfused 1 unit of packed red blood cells Obtain posttransfusion CBC ID: Pneumonia Persistent leukocytosis BC x2, UA (-) inf A/B negative Started on vancomycin and piperacillin/tazobactam day #4 11/29 S/P bronchoscopy with sample sent from left lower lobe 11/29 Sputum (BAL)-gram negative rods Noted yellowish drainage bilateral eyes right greater than left-ophthalmology consulted ID consulted [id number] lumbar puncture MSK: PT eval and tx 2+ dependent edema FEN: Electrolyte abnormality Replace electrolytes as clinically indicated per protocol Monitor BMP Sodium level 135-all IV fluids mixed with 0.9 NS Access Right IJ CVL day #2 placed 11/28 ED. Discontinued 11/29 this patient partially pulled out with StatLock in place. Will replace with left IJ CVL today 11/29 to current day #4 Right femoral arterial line day #4 placed 11/29 12/03 hypocalcemia -calcium gluconate 2 g IV now Prophylaxis -GI -pantoprazole -DVT -SCD/ heparin SQ Critical Care: my billing statement This patient remains critically ill with one or more organ systems which are or may become a threat to life. I have spent in excess of my 33 minutes discontinuously in the care and management of this patient. This time is exclusive of procedures, and includes, but is not limited to, evaluation of the patient, review of the medical record, discussions with family, consultants, nursing staff, or respiratory therapy, and documentation in the medical record. 12/03 Discussed with SAP ARCHITECT Grant) at bedside Janice Marinelli MD Dec 04, 2017 18:24
--- NOTE | 2017-12-04 18:51 | MG ---
cc: Chelly Moody MD DATE OF STUDY: 11/28/2017 REQUESTING PHYSICIAN: Dr. Marinelli. INDICATION FOR STUDY: A stat EEG was obtained on this patient who is intubated and unresponsive. No sedation apparently since last night. MEDICATIONS: Cerebyx, phenobarbital and levetiracetam. DESCRIPTION OF STUDY: This EEG shows a lot of muscle artifact. There are essentially no alpha rhythms. There are some theta and delta rhythms bilaterally. There is some sharp waves with some phase reversal left central head region. Photic stimulation disclosed no change. INTERPRETATION: Abnormal electroencephalogram because of bihemispheric slowing with some left frontocentral sharp waves and phase reversal suggesting an epileptiform abnormality and possible structural lesion in this region. No ictal pattern present. Chelly Moody MD OFC/KD , 06:28 PM , 06:49 PM
[2017-12-04] MEDS: PANTOPRAZOLE SODIUM 40 MG VIAL IV PUSH SCH (20:34)
[2017-12-04] MEDS: ATORVASTATIN 10 MG TAB PO SCH (20:36)
[2017-12-04] MEDS: VANCOMYCIN INJ 1,250 MG in SODIUM CHLOR 0.9% 250 ML INJ 250 ML IV SCH (20:36)
[2017-12-05] VITALS (36 sets, daily range): BP systolic 82–140; BP diastolic 41–72; PULSE 90–112; RESP 0–24; TEMP 98–99.2; O2SAT 97–100
[2017-12-05] MEDS: CHLORHEXIDINE GLUCONATE 2 % 1 PACK (2 CLOTHS) TOP SCH (04:00)
[2017-12-05] MEDS: INSULIN ASPART SUPPLEMENTAL SCALE SQ SCH ×5 (04:04→20:33)
[2017-12-05] MEDS: RESP: ALBUTEROL 2.5 MG/3 ML NEB (PRN) INH ×4 (04:18→22:30)
[2017-12-05] MEDS: PIPERACIL-TAZO 4.5 GM PREMIX 100 ML IV SCH ×4 (04:42→22:25)
[2017-12-05] MEDS: SODIUM CHLORIDE 0.9% IV SCH (05:38)
[2017-12-05] MEDS: ACYCLOVIR IV SCH (05:38)
--- NOTE | 2017-12-05 06:11 | RADRPT ---
EXAM DATE/TIME: 12/05/2017 05:42 [facility] COMPARISON: CHEST SINGLE AP, December 04, 2017, 6:30. INDICATIONS : Respiratory distress. MEDICAL HISTORY : Diabetes mellitus type I. SURGICAL HISTORY : None. ENCOUNTER: Subsequent ACUITY: 1 week PAIN SCORE: Non-responsive. LOCATION: Bilateral chest FINDINGS: Left greater than right basilar consolidation again noted and with a small left pleural effusion. No pneumothorax. Right chest tube remains in place. Heart size stable, normal. Endotracheal tube tip is approximately 3 cm above the kera. Nasogastric tube courses into the stoma ch. There is a left internal jugular central venous catheter with tip at the atriocaval junction. CONCLUSION: No significant change left greater than right basilar consolidation and small left pleural effusion. No pneumothorax. Right chest tube remains in place. Uziel Murry MD on December 05, 2017 at 6:09 Board Certified Radiologist. This report was verified electronically.
[2017-12-05 06:18] LABS: BASOPHIL % 0.3 % (0.0-2.0); EOSINOPHIL # 0.2 TH/MM3 (0-0.4); EOSINOPHIL % 2.2 % (0.0-4.0); HEMATOCRIT 28.1 % (35.0-46.0); HEMOGLOBIN 9.3 GM/DL (11.6-15.3); LYMPH % 13.7 % (9.0-44.0); LYMPHOCYTE # 1.2 TH/MM3 (1.0-4.8); MEAN CELL VOLUME 95.5 FL (80.0-100.0); MEAN CORPUSCULAR HEMOGLOBIN 31.7 PG (27.0-34.0); MEAN CORPUSCULAR HGB CONC 33.2 % (32.0-36.0); MEAN PLATELET VOLUME 8.2 FL (7.0-11.0); MONO % 15.4 % (0.0-8.0); MONOCYTE # 1.3 TH/MM3 (0-0.9); NEUT % 68.4 % (16.0-70.0); PLATELET COUNT 257 TH/MM3 (150-450); RED BLOOD COUNT 2.94 MIL/MM3 (4.00-5.30); RED CELL DISTRIBUTION WIDTH 13.9 % (11.6-17.2); WHITE BLOOD COUNT 8.7 TH/MM3 (4.0-11.0)
[2017-12-05 06:32] LABS: BICARBONATE 29.1 MEQ/L (21.0-32.0); CALCIUM 7.7 MG/DL (8.5-10.1); MAGNESIUM 2.4 MG/DL (1.5-2.5)
[2017-12-05 06:36] LABS: CREATININE 0.54 MG/DL (0.50-1.00); PHOSPHORUS 2.7 MG/DL (2.5-4.9)
[2017-12-05] MEDS: DOCUSATE SODIUM 50 MG/SENNA 8.6 MG TAB PO SCH ×2 (09:00→20:31)
[2017-12-05] MEDS: VANCOMYCIN INJ 1,250 MG in SODIUM CHLOR 0.9% 250 ML INJ 250 ML IV SCH ×2 (09:00→20:32)
--- NOTE | 2017-12-05 09:12 | HHI.PR ---
Review/Management Diagnosis/Plan: (1) Seizure cerebral ICD Codes: I67.89 - Other cerebrovascular disease Status: Acute Plan: likely metabolic sz's severe metabolic encephalopathy 12/04 eeg reviewed csf negative. hsv pcr negative wbc 6, protein 32 recs d/c acyclovir d/c keppra continue dilantin/phb hopefully will start waking up; was on versed for some time d/w rn prognosis guarded (2) Encephalopathy, metabolic ICD Codes: G93.41 - Metabolic encephalopathy Status: Acute Plan: 2/2 dka, renal failure, post-sz activity (3) DKA (diabetic ketoacidoses) ICD Codes: E13.10 - Other specified diabetes mellitus with ketoacidosis without coma Status: Acute Plan: per ccm (4) Acute renal failure ICD Codes: N17.9 - Acute kidney failure, unspecified Status: Acute Plan: hydration/per ccm Subjective Subjective Comments No acute events reported Active Medications Current Medications Medications (Trade) Dose Ordered Sig/Kenna Route Start Time Stop Time Status Last Admin (NS Flush) 2 ml UNSCH PRN IV FLUSH 11/28/17 16:00 (NS Flush) 2 ml BID IV FLUSH 11/28/17 21:00 12/04/17 20:34 (Albuterol Neb) 2.5 mg Q2HR NEB PRN INH 11/28/17 16:00 12/05/17 07:37 (Chlorhexidine 2% Cloth) 3 pack UNSCH PRN TOP 11/28/17 16:00 Future Hold (Marcie-Colace) 1 tab BID PO 11/28/17 21:00 12/04/17 08:30 (Milk Of Magnesia Liq) 30 ml Q12H PRN PO 11/28/17 16:00 (Senokot) 17.2 mg Q12H PRN PO 11/28/17 16:00 (Dulcolax Supp) 10 mg DAILY PRN RECTAL 11/28/17 16:00 (Lactulose Liq) 30 ml DAILY PRN PO 11/28/17 16:00 (Zofran Inj) 4 mg Q6H PRN IV PUSH 11/28/17 16:15 (Heparin Inj) 5,000 units Q8H SQ 11/28/17 18:00 Future Hold 11/29/17 01:31 Miscellaneous Information 1 Q361D XX 11/28/17 16:15 4/12/18 16:15 (Chlorhexidine 2% Cloth) Taper DAILY@04 TOP 11/29/17 04:00 11/25/18 03:59 12/05/17 04:00 (Chlorhexidine 2% Cloth) 3 pack UNSCH PRN TOP 11/28/17 16:15 (Brethine Inj) 1 mg UNSCH PRN SQ 11/28/17 17:00 (Flonase Willem Spr) 1 spray BID EACH NARE 11/28/17 21:00 Future Hold (Theragran) 1 tab DAILY PO 11/29/17 09:00 12/04/17 08:30 Thiamine HCl 100 mg/Sodium Chloride 101 ml @ 101 mls/hr DAILY IV 11/29/17 09:00 12/04/17 08:30 (D50w (Vial) Inj) 50 ml UNSCH PRN IV PUSH 11/29/17 07:15 11/30/17 07:11 (Glucagon Inj) 1 mg UNSCH PRN OTHER 11/29/17 07:15 (Levemir Inj) 8 units BID SQ 11/29/17 09:00 Future Hold 11/29/17 22:11 Pharmacy Profile Note 0 ml @ 0 mls/hr UNSCH OTHER 11/29/17 07:15 Potassium Chloride 100 ml @ 50 mls/hr Q2H PRN IV 11/29/17 07:15 Potassium Chloride 100 ml @ 50 mls/hr Q2H PRN IV 11/29/17 07:15 (K-Lyte Cl Eff) 50 meq UNSCH PRN PO 11/29/17 07:15 Potassium Chloride 100 ml @ 25 mls/hr UNSCH PRN IV 11/29/17 07:15 Potassium Chloride 100 ml @ 50 mls/hr Q2H PRN IV 11/29/17 07:15 Magnesium Sulfate 4 gm/Sodium Chloride 100 ml @ 50 mls/hr UNSCH PRN IV 11/29/17 07:15 (Mag-Ox) 800 mg UNSCH PRN PO 11/29/17 07:15 Magnesium Sulfate 2 gm/Sodium Chloride 100 ml @ 50 mls/hr UNSCH PRN IV 11/29/17 07:15 (K-Phos) 2,000 mg Q4H PRN PO 11/29/17 07:15 Sodium Phosphate 30 mmol/Sodium Chloride 250 ml @ 42 mls/hr UNSCH PRN IV 11/29/17 07:15 11/30/17 05:30 (K-Phos) 2,000 mg UNSCH PRN PO/TUBE 11/29/17 07:15 Potassium Phosphate 30 mmol/ Sodium Chloride 260 ml @ 42 mls/hr UNSCH PRN IV 11/29/17 07:15 12/01/17 12:05 (Peridex 0.12% Liq) 15 ml BID@08,20 MT 11/29/17 08:00 12/04/17 20:33 (Tylenol 650 Mg/ 20 ml Liq) 650 mg Q6H PRN NG 11/29/17 10:00 11/30/17 16:47 (Brethine Inj) 1 mg UNSCH PRN SQ 11/29/17 10:00 (NovoLOG SUPPLEMENTAL SCALE) 1 Q4HR SQ 11/29/17 12:00 12/05/17 04:04 (NS Flush) DAILY IV FLUSH 11/30/17 09:00 12/04/17 10:08 (NS Flush) UNSCH PRN IV FLUSH 11/29/17 11:15 (Aspirin Chew) 81 mg DAILY CHEW 11/30/17 09:00 12/04/17 08:31 (Lipitor) 10 mg HS PO 11/29/17 21:00 12/04/17 20:36 (Protonix Inj) 40 mg DAILY@2100 IV PUSH 11/29/17 21:00 12/04/17 20:34 Levetriacetam 500 mg/Sodium Chloride 105 ml @ 420 mls/hr Q12HR IV 11/30/17 09:00 12/04/17 20:34 Vasopressin 40 units/Dextrose 100 ml @ 6 mls/hr [id number] IV 11/30/17 07:00 Future Hold 12/01/17 16:36 (Cerebyx Inj) 200 mgpe Q12HR IV 11/30/17 21:00 12/04/17 20:33 Fentanyl Citrate 250 ml @ 5 mls/hr TITRATE PRN IV 12/01/17 08:15 12/03/17 13:58 Midazolam HCl 100 ml @ 2 mls/hr TITRATE PRN IV 12/01/17 08:15 12/02/17 22:40 Norepinephrine Bitartrate 8 mg/ Sodium Chloride 250 ml @ 5.62 mls/hr TITRATE PRN IV 12/01/17 10:00 12/01/17 10:30 (Luminal Inj) 65 mg Q8HR IM 12/01/17 14:00 12/05/17 05:38 Acyclovir Sodium 475 mg/Sodium Chloride 100 ml @ 100 mls/hr Q8H IV 12/01/17 14:00 12/05/17 05:38 Phenylephrine HCl 160 mg/Sodium Chloride 500 ml @ 7.5 mls/hr TITRATE PRN IV 12/02/17 08:00 12/02/17 08:58 Piperacillin Sod/ Tazobactam Sod 100 ml @ 200 mls/hr Q6H IV 12/03/17 11:00 12/05/17 04:42 (Lacrilube Opht Oint) 1 applic QID EACH EYE 12/03/17 18:00 12/04/17 20:33 Vancomycin HCl 1250 mg/Sodium Chloride 262.5 ml @ 250 mls/hr Q12H IV 12/04/17 21:00 12/04/17 20:36 Miscellaneous Information SPECIFIC LAB TO BE DONAVON... ONCE ONCE .XX 12/06/17 08:45 12/06/17 08:46 Allergies Allergies Coded Allergies No Known Allergies (Unverified Allergy, Unknown, 11/28/17) Review of Systems All other ROS: Unable to obtain Exam I&O / VS Vital Signs Date Time Temp Pulse Resp B/P (MAP) Pulse Ox O2 Delivery O2 Flow Rate FiO2 12/05/17 08:45 100 12/05/17 08:45 100 50 12/05/17 07:41 100 50 12/05/17 07:40 50 50 12/05/17 07:32 100 50 12/05/17 06:00 90 108/61 (77) 12/05/17 06:00 92 18 108/61 (77) 100 128/72 (90) 12/05/17 06:00 96 12/05/17 05:00 92 16 116/72 (87) 100 98/52 (67) 12/05/17 04:25 98 50 12/05/17 04:00 97 12/05/17 04:00 50 12/05/17 04:00 99.0 98 15 90/59 (69) 100 100/54 (69) 18 03:00 90 16 85/41 (56) 100 86/50 (62) 18 02:10 110 18 108/56 (73) 100 118/60 (79) 18 02:00 104 418 02:00 96 15 82/43 (56) 100 88/50 (63) 18 01:50 100 50 18 01:00 108 16 102/58 (73) 100 18 00:00 98.0 102 15 107/52 (70) 100 108/58 (75) 12/05/17 00:00 110 18 00:00 50 18 23:00 102 15 104/56 (72) 100 12/04/17 22:55 100 50 12/04/18 22:00 102 17 108/55 (72) 100 118/64 (82) 12/04/17 22:00 96 18 21:13 94 15 106/53 (70) 100 112/60 (77) 18 20:36 96 105/62 18 20:34 98 116/72 18/18 20:00 100 50 12/04/18 20:00 93 18 20:00 50 18 19:30 106 110/62 18/18 19:00 100 Mechanical Ventilator 50 18 19:00 98.8 96 16 105/57 (73) 100 112/60 (77) 18 18:00 104 109/51 (70) 112/52 (72) 1818 18:00 96 418/18 18:00 96 15 95/54 (68) 100 108/58 (75) 18/18 17:01 100 50 18/18 17:00 99.3 94 15 104/54 (71) 100 112/62 (79) 18 16:00 90 418/18 16:00 50 418/18 15:00 92 16 93/50 (64) 100 100/82 (88) 1818 15:00 92 41818 14:01 100 16 92/48 (63) 100 96/60 (72) 418 14:00 100 12/04/17 13:56 100 50 12/04/17 13:01 114 20 107/52 (70) 100 104/50 (68) 12/04/17 13:00 114 12/04/17 12:01 124 20 112/54 (73) 100 106/54 (71) 12/04/17 12:00 50 12/04/17 12:00 126 12/04/17 11:56 125 112/56 12/04/17 11:01 122 21 111/52 (71) 100 112/58 (76) 12/04/17 11:00 122 12/04/17 11:00 122 112/58 12/04/17 10:30 100 50 12/04/17 10:01 120 21 119/56 (77) 100 114/64 (81) 12/04/17 10:00 120 12/04/17 10:00 120 112/62 Exam Comments intubated. stupor, partially opens eyes to tactile, not following, ou 2.5mm sluggishly reactive, no gaze deviation, face sym, no jerking, no ext movements Objective Micro and Labs Laboratory Tests Test 12/05/17 06:00 White Blood Count 8.7 Red Blood Count 2.94 Hemoglobin 9.3 Hematocrit 28.1 Mean Corpuscular Volume 95.5 Mean Corpuscular Hemoglobin 31.7 Mean Corpuscular Hemoglobin Concent 33.2 Red Cell Distribution Width 13.9 Platelet Count 257 Mean Platelet Volume 8.2 Neutrophils (%) (Auto) 68.4 Lymphocytes (%) (Auto) 13.7 Monocytes (%) (Auto) 15.4 Eosinophils (%) (Auto) 2.2 Basophils (%) (Auto) 0.3 Neutrophils # (Auto) 6.0 Lymphocytes # (Auto) 1.2 Monocytes # (Auto) 1.3 Eosinophils # (Auto) 0.2 Basophils # (Auto) 0.0 CBC Comment DIFF FINAL Differential Comment Blood Urea Nitrogen 16 Creatinine 0.54 Random Glucose 181 Calcium Level 7.7 Phosphorus Level 2.7 Magnesium Level 2.4 Sodium Level 148 Potassium Level 3.6 Chloride Level 115 Carbon Dioxide Level 29.1 Anion Gap 4 Estimat Glomerular Filtration Rate 114 Date/Time Source Procedure Growth Status 11/28/17 18:55 Blood Peripheral Aerobic Blood Culture - Final NO GROWTH IN 5 DAYS Complete 11/28/17 18:55 Blood Peripheral Anaerobic Blood Culture - Final NO GROWTH IN 5 DAYS Complete 12/02/17 15:29 Cerebral Spinal Fluid Lumbar Puncture Gram Stain - Final Resulted 12/02/17 15:29 Cerebral Spinal Fluid Lumbar Puncture CSF Culture - Preliminary NO GROWTH IN 48 HOURS. Resulted 11/29/17 20:00 Nasal Aspirate Influenza Types A,B Antigen (KELY) - Final NEGATIVE FOR FLU A AND B ANTIGEN.... Complete 11/28/17 15:28 Urine Catheterized Urine Urine Culture - Final NO GROWTH IN 48 HOURS. Complete Problem Qualifiers (1) DKA (diabetic ketoacidoses): Qualified Codes: E10.11 - Type 1 diabetes mellitus with ketoacidosis with coma (2) Acute renal failure: Qualified Codes: N17.9 - Acute kidney failure, unspecified Brijesh Neville MD Dec 05, 2017 09:12
[2017-12-05] MEDS: CHLORHEXIDINE 0.12% (ORAL KIT) 15 ML CUP MT SCH ×2 (09:30→20:29)
[2017-12-05] MEDS: FOSPHENYTOIN SODIUM 100 MG PE/2 ML VIAL IV SCH ×2 (09:31→20:37)
[2017-12-05] MEDS: ARTIFICIAL TEARS OPTH OINT 3.5 APPLIC/3.5 GM TUBO EACH EYE SCH ×4 (09:31→20:29)
[2017-12-05] MEDS: ASPIRIN 81 MG CHEW TAB CHEW SCH (09:31)
[2017-12-05] MEDS: THIAMINE INJ 100 MG in SODIUM CHLORIDE 0.9% INJ 100 ML IV SCH (09:32)
[2017-12-05] MEDS: SODIUM CHLORIDE 0.9% FLUSH 10 ML FLUSH IV FLUSH SCH ×3 (09:36→20:32)
[2017-12-05] MEDS: MULTIVITAMIN TAB PO SCH (09:36)
[2017-12-05 15:55] LABS: CSF CRYPTOCOCCUS AG CONF ND (NOT DETECTD)
--- NOTE | 2017-12-05 18:47 | HHI.CCPN ---
Subjective Remarks/Hospital Course This is a 51-year-old female. Date of admission 11/28/2017. Past medical history includes diabetes mellitus type 1 uncontrolled insulin- dependent with retinopathy on home insulin pump, hypertension, allergic rhinitis and chronic benzodiazepine use. She also has history of breast cancer on raloxifene she originally presented to [facility] ED During the workup, patient was noted to have a blood sugar of 808. Elevated acetone. Sodium 135. Potassium 6.0. Ferritin 2.1. Leukocytosis 25,000. Macrocytic anemia. UA negative for infectious etiology. She was bolused with 3 L of 0.9% NaCl IV fluid bolus. She is received 3 ampules of sodium bicarbonate and 1 g calcium gluconate. Chest x-ray post procedure revealed the CT scan of the head is read by the radiologist as ventriculomegaly but otherwise no acute findings. 11/29: Patient had nonrebreather off all night. PTX now 8 mm. Yells "Help me " "I don't know" Gap has closed, will transition back to SQ insulin if able to pass swallow. Replacing lytes. SUBJECTIVE: 11/30: Patient opens eyes to voice. Leftward gaze. Frequent blinking. Withdraws to stimulation bilateral lower extremities. T-max 99.5. Remains on norepinephrine and phenylephrine drips. MRI brain revealed ventriculomegaly. No acute signs of CVA. Echocardiogram EF 40%. 12/01: Afebrile. Patient remains off sedation approximately 24 hours nonresponsive. EEG in process. BAL revealed gram-negative rods the patient continues on Zosyn. The patient remains on vasopressors norepinephrine, vasopressin, and phenylephrine. Versed infusion restarted secondary to seizure activity noted on repeat EEG this a.m.. 12/02: Afebrile. The patient is scheduled for lumbar puncture this a.m., INR 1.0 patient has been off subcu heparin approximately 3 days. The patient continues on Versed and fentanyl infusions to maintain ventilator synchrony and avoidance of subclinical seizures which were noted on the EEG yesterday. The patient continues on multiple vasopressors to include norepinephrine and phenylephrine and vasopressin. Vasopressin currently being weaned off. The patient continues to have persistent leukocytosis though it is slightly downtrending plan for ID consult today appreciate recommendations. Bronchial washings resulted E. coli, currently patient continues on Zosyn. Patient was noted to have a positive fluid balance yesterday the patient received 20 mg of Lasix with adequate diuresis the patient noted to have a sodium level slightly decreased at 135 IV fluids mixed in 0.9 normal saline. 12/03: No acute events overnight lumbar puncture performed yesterday results pending. Dilantin level therapeutic. Phenobarbital level pending. Patient off vasopressin 24 hours. Phenylephrine currently being weaned off. Patient noted to be anemic 1 unit packed cells will be transfused today no pneumothorax chest tube now placed to waterseal today. 12/04: T-max 99.4. Repeat EEG performed today. Patient now withdrawing to pain 4 extremities, and open eyes to painful stimulus. Patient noted to move bilateral lower extremities 1 this shift. Patient tolerating tube feeds, overbreathing vent will begin CPAP trials in the a.m. if clinically stable. Phenylephrine completely discontinued overnight. Norepinephrine has been decreased to 3 mics/min. hemoglobin stable. 12/05: Afebrile. Patient was weaned off of norepinephrine last p.m.. The patient has been off sedation for greater than 48 hours, no change in neurological status opens eyes to deep stimulation, moves extremities 4 withdrawing to painful stimuli. CPAP trials initiated this a.m. the patient tolerated CPAP for approximately 6.5 hours. Chest x-ray remains unchanged no pneumo thorax, plan for removal of chest tube this evening. Objective Vital Signs Date Time Temp Pulse Resp B/P (MAP) Pulse Ox O2 Delivery O2 Flow Rate FiO2 12/05/17 18:00 104 12/05/17 18:00 117/61 (79) 118/54 (75) 12/05/17 18:00 16 100 12/05/17 16:00 50 12/05/17 16:00 99.2 12/05/17 07:00 Mechanical Ventilator Intake and Output 12/05/17 12/05/17 12/06/17 08:00 16:00 00:00 Intake Total 428 ml 467 ml 548 ml Output Total 450 ml 700 ml Balance -22 ml 467 ml -152 ml Result Diagram: 12/05/17 0600 12/05/17 0600 Imaging Last Impressions Chest X-Ray 12/02/17 0400 Signed Impressions: Service Date/Time: Saturday, December 02, 2017 04:17 - CONCLUSION: No significant change. Uziel Murry MD Renal Ultrasound 4/13/18 1656 Signed Impressions: Service Date/Time: Wednesday, November 29, 2017 13:16 - CONCLUSION: 1. Both kidneys are sonographically normal without hydronephrosis or nephrolithiasis. 2. Very abnormal appearance of the gallbladder with mural thickening and minimal pericholecystic fluid Dani Titus MD Brain MRI 11/29/17 0000 Signed Impressions: Service Date/Time: Wednesday, November 29, 2017 13:27 - CONCLUSION: 1. Mild diffuse ventriculomegaly. Clinical correlation for normal pressure hydrocephalus is recommended. 2. Byfe-hn-vzlyeqin periventricular small vessel ischemic white matter demyelination, out of proportion for age. Ayl Leigh MD Head CT 11/28/17 0000 Signed Impressions: Service Date/Time: November 15:46 - CONCLUSION: 1. Ventriculomegaly suggesting central cerebral atrophy versus hydrocephalus. Clinical correlation is recommended. 2. No acute infarct, acute hemorrhage, midline shift or extra-axial fluid collections. Dev Christopher MD Last Impressions Chest X-Ray 12/01/17 0600 Signed Impressions: Service Date/Time: Friday, December 01, 2017 03:56 - CONCLUSION: 1. Patchy alveolar disease characteristic of edema or pneumonia. There has been no significant change when compared to the prior exam. Patrick Hamm MD Renal Ultrasound 11/29/171655 Signed Impressions: Service Date/Time: Wednesday, November 29, 2017 13:16 - CONCLUSION: 1. Both kidneys are sonographically normal without hydronephrosis or nephrolithiasis. 2. Very abnormal appearance of the gallbladder with mural thickening and minimal pericholecystic fluid Dani Titus MD Brain MRI 11/29/17 0000 Signed Impressions: Service Date/Time: Wednesday, November 29, 2017 13:27 - CONCLUSION: 1. Mild diffuse ventriculomegaly. Clinical correlation for normal pressure hydrocephalus is recommended. 2. Qmqm-cq-aciyjdnu periventricular small vessel ischemic white matter demyelination, out of proportion for age. Aly Leigh MD Head CT 11/28/17 0000 Signed Impressions: Service Date/Time: November 15:46 - CONCLUSION: 1. Ventriculomegaly suggesting central cerebral atrophy versus hydrocephalus. Clinical correlation is recommended. 2. No acute infarct, acute hemorrhage, midline shift or extra-axial fluid collections. Dev Christopher MD Last Impressions Renal Ultrasound 11/29/17 1656 Signed Impressions: Service Date/Time: Wednesday, November 29, 2017 13:16 - CONCLUSION: 1. Both kidneys are sonographically normal without hydronephrosis or nephrolithiasis. 2. Very abnormal appearance of the gallbladder with mural thickening and minimal pericholecystic fluid Dani Titus MD Chest X-Ray 11/29/17 1102 Signed Impressions: Service Date/Time: Wednesday, November 29, 2017 11:03 - CONCLUSION: Line in good position.. Ousmane Bird MD FACR Brain MRI 11/29/17 0000 Signed Impressions: Service Date/Time: Wednesday, November 29, 2017 13:27 - CONCLUSION: 1. Mild diffuse ventriculomegaly. Clinical correlation for normal pressure hydrocephalus is recommended. 2. Ktfe-hn-aadusjpi periventricular small vessel ischemic white matter demyelination, out of proportion for age. Aly Leigh MD Head CT 11/28/17 0000 Signed Impressions: Service Date/Time: November 15:46 - CONCLUSION: 1. Ventriculomegaly suggesting central cerebral atrophy versus hydrocephalus. Clinical correlation is recommended. 2. No acute infarct, acute hemorrhage, midline shift or extra-axial fluid collections. Dev Christopher MD Procedures 12/02-planned lumbar puncture Objective Remarks GENERAL: 61-year-old female critically ill currently orotracheally intubated SKIN: Warm and dry. No rash HEAD: Atraumatic. Normocephalic. EYES: Pupils equal and round about 2 mm bilaterally reactive. No scleral icterus. No injection, some yellowish drainage noted left eye. Bilateral scleral edema ENT: No nasal bleeding or discharge. Mucous membranes pink and moist NECK: Trachea midline. No JVD. Left IJ CVL is clean dry and intact CARDIOVASCULAR: RRR. S1, S2 no S4.. No murmur RESPIRATORY: Essentially clear to auscultation bilaterally without wheezes rales or rhonchi. Right chest tube to waterseal GASTROINTESTINAL: Abdomen soft, non-tender, nondistended. Hyperactive bowel sounds appreciated MUSCULOSKELETAL: Extremities with trace upper and lower extremity edema. NEUROLOGICAL: Low-dose fentanyl 30 mics/hour, patient overbreathing the vent positive cough and gag. Upward toes. Withdraws extremities 4 to painful stimuli, and eye opening to painful stimuli. Date of Insertion: Nov 28, 2017 Line: Central Venous Catheter Side: Left Location: Internal, Jugular A/P Assessment and Plan Neuro/Psych: Acute encephalopathy secondary to diabetic ketoacidosis Anxiety disorder NOS Benzodiazepine use Possible eye infection Low-dose fentanyl 30 mics/hour to maintain ventilator synchrony, pain control Goal of RASS 0 Daily sedation vacation-when cleared by neurology Dr. Neville Acetaminophen 650 mg by tube every 6 hours as needed fever CT brain 11/28 revealed Ventriculomegaly suggesting central cerebral atrophy versus hydrocephalus. Clinical correlation is recommended. No acute infarct, acute hemorrhage, midline shift or extra-axial fluid collections. She is on amitriptyline 10 mg daily at home. This has been held UDS negative MRI brain 11/29 revealed mild to moderate ventriculomegaly. EEG ordered 11/29. Repeat EEG 12/01- active seizures 11/30 levetiracetam 500 mg IV every 12 hours after 1 g bolus Neurology -Dr. Neville 12/02 Ophthalmology -no eye infection Lacri-Lube applied for scleral edema 12/02-lumbar puncture-negative 12/03-cortisol level 17 ammonia level 22 CV: History of hypertension Shock Elevated troponin Acute systolic heart failure ejection fraction 40% NSTEMI cardiomyopathy CVP - 9 Norepinephrine drip @ 3 mcg/min, discontinue 12/04 Maintain mean arterial pressure greater than equal to 65. 12/02-vasopressin 0.04 units/hour weaned off Started on atorvastatin 10 mg by tube daily Continue aspirin 81 mg by tube daily 2D echocardiogram revealed EF around 40%. LV increased size. Septal hypokinesis. Repeat troponin the same decreased to 2.8 Patient is on irbesartan 150 mg daily at home and this is been held in light of acute hypotension 12/03- Cardiology has signed off 12/03 IV fluids NS discontinued Resp: Acute hypoxemic respiratory failure Hemoptysis-resolved Tobacco abuse/ongoing Iatrogenic PTX status [facility], will increase FiO2 to 50% 11/22 CXR-basilar consolidation small- moderate pleural effusion Ventilator bundle Albuterol/ipratropium aerosols every 6 hours with albuterol aerosols every 2 hours as needed dyspnea 12/03 Right chest tube in placed to waterseal 11/29 Status post chest tube placement see documentation, removed 12/05 Status post bronchoscopy 11/29. GI: Hypoalbuminemia Glucerna 1.5 goal 50 cc an hour-minimal residual Pantoprazole 40 mg IV daily for GI prophylaxis Docusate sodium/senna 1 tablet twice daily for bowel regimen 12/03 gallbladder ultrasound : Méndez catheter has been placed for accurate I's and O's in a critically ill patient 12/01 Lasix 20 mg IV 1 dose Endo: Insulin-dependent diabetes mellitus type 1 uncontrolled Diabetic ketoacidosis - resolved Originally, patient received 3 L normal saline in the ED along with 3 refills and bicarbonate, 1 ampule of calcium gluconate. Beta hydroxybutyrate cleared 11/29 Insulin pump was disconnected 11/28. According to sister Evelyn Obrien, patient had received a new insulin pump within the past 48 hours. She has no history of DKA in the past to her knowledge TSH 0.38 Holding insulin detemir 8 U BID DUE to hypoglycemia. Continue SSI Novulog medium protocol with accucheck every 4 hours maintain euglycemia Renal: Acute kidney injury with history of normal renal function likely secondary to severe dehydration Urine eosinophils negative Renal ultrasound revealed no medical renal disease. Serial BMP Heme: Leukocytosis Macrocytic anemia Monitor CBC daily. Follow trends 12/03 transfused 1 unit of packed red blood cells Obtain posttransfusion CBC ID: Pneumonia Persistent leukocytosis BC x2, UA (-) inf A/B negative Started on vancomycin and piperacillin/tazobactam day #4 4 S/P bronchoscopy with sample sent from left lower lobe 11/29 Sputum (BAL)-gram negative rods Noted yellowish drainage bilateral eyes right greater than left-ophthalmology consulted ID consulted 12/02-lumbar puncture-negative MSK: PT eval and tx 2+ dependent edema FEN: Electrolyte abnormality Replace electrolytes as clinically indicated per protocol Monitor BMP Access Right IJ CVL day #2 placed 11/28 ED. Discontinued 11/29 this patient partially pulled out with StatLock in place. Will replace with left IJ CVL today 11/29 to current day #5 Right femoral arterial line day #4 placed 11/29 Prophylaxis -GI -pantoprazole -DVT -SCD/ heparin SQ Critical Care: my billing statement Level 3 follow-up 12/03 Discussed with [employer] Physician Janice Alegria MD Dec 05, 2017 18:47
[2017-12-05 19:52] LABS: CSF CRYPTOCOCCUS ANTIGEN NOT DETECTED (NEGATIVE)
[2017-12-05] MEDS: ATORVASTATIN 10 MG TAB PO SCH (20:31)
[2017-12-05] MEDS: PANTOPRAZOLE SODIUM 40 MG VIAL IV PUSH SCH (20:31)
[2017-12-06] VITALS (31 sets, daily range): BP systolic 95–135; BP diastolic 49–78; PULSE 82–104; RESP 14–25; TEMP 98.1–99.3; O2SAT 90–100
[2017-12-06] MEDS: CHLORHEXIDINE GLUCONATE 2 % 1 PACK (2 CLOTHS) TOP SCH (03:25)
[2017-12-06] MEDS: INSULIN ASPART SUPPLEMENTAL SCALE SQ SCH ×6 (03:25→20:00)
[2017-12-06] MEDS: RESP: ALBUTEROL 2.5 MG/3 ML NEB (PRN) INH (04:42)
[2017-12-06 04:55] LABS: HEMATOCRIT 28.8 % (35.0-46.0); HEMOGLOBIN 9.4 GM/DL (11.6-15.3); MEAN CELL VOLUME 95.6 FL (80.0-100.0); MEAN CORPUSCULAR HEMOGLOBIN 31.3 PG (27.0-34.0); MEAN CORPUSCULAR HGB CONC 32.7 % (32.0-36.0); MEAN PLATELET VOLUME 8.2 FL (7.0-11.0); PLATELET COUNT 294 TH/MM3 (150-450); RED BLOOD COUNT 3.02 MIL/MM3 (4.00-5.30); RED CELL DISTRIBUTION WIDTH 13.9 % (11.6-17.2); WHITE BLOOD COUNT 9.3 TH/MM3 (4.0-11.0)
[2017-12-06] MEDS: PIPERACIL-TAZO 4.5 GM PREMIX 100 ML IV SCH ×4 (05:03→23:05)
[2017-12-06 05:05] LABS: CALCIUM 7.9 MG/DL (8.5-10.1)
[2017-12-06 05:06] LABS: BICARBONATE 30.1 MEQ/L (21.0-32.0)
[2017-12-06 05:09] LABS: CREATININE 0.45 MG/DL (0.50-1.00)
[2017-12-06 05:21] LABS: PHENYTOIN (DILANTIN) 12.4 MCG/ML (10.0-20.0)
--- NOTE | 2017-12-06 05:43 | RADRPT ---
EXAM DATE/TIME: 12/06/2017 04:52 [facility] COMPARISON: CHEST SINGLE AP, December 05, 2017, 5:42. INDICATIONS : Respiratory failure MEDICAL HISTORY : Diabetes mellitus type I. SURGICAL HISTORY : None. ENCOUNTER: Subsequent ACUITY: 1 week PAIN SCORE: Non-responsive. LOCATION: Bilateral chest FINDINGS: Tip of endotracheal tube 3 cm from the kera. Nasogastric tube coiled in the fundus. Left-sided cent ral line. Improvement in right basilar consolidation. No change in left basilar consolidation and lef t effusion. Heart is normal in size. No pneumothorax. CONCLUSION: Improvement in the right consolidation. No change in left effusion and left consolidation. Charlie Gardner Jr., MD on December 06, 2017 at 5:40 Board Certified Radiologist. This report was verified electronically.
--- NOTE | 2017-12-06 06:36 | HHI.CCPN ---
Subjective Remarks/Hospital Course This is a 51-year-old female. Date of admission 11/28/2017. Past medical history includes diabetes mellitus type 1 uncontrolled insulin- dependent with retinopathy on home insulin pump, hypertension, allergic rhinitis and chronic benzodiazepine use. She also has history of breast cancer on raloxifene she originally presented to [facility] ED During the workup, patient was noted to have a blood sugar of 808. Elevated acetone. Sodium 135. Potassium 6.0. Ferritin 2.1. Leukocytosis 25,000. Macrocytic anemia. UA negative for infectious etiology. She was bolused with 3 L of 0.9% NaCl IV fluid bolus. She is received 3 ampules of sodium bicarbonate and 1 g calcium gluconate. Chest x-ray post procedure revealed the CT scan of the head is read by the radiologist as ventriculomegaly but otherwise no acute findings. 11/29: Patient had nonrebreather off all night. PTX now 8 mm. Yells "Help me " "I don't know" Gap has closed, will transition back to SQ insulin if able to pass swallow. Replacing lytes. SUBJECTIVE: 11/30: Patient opens eyes to voice. Leftward gaze. Frequent blinking. Withdraws to stimulation bilateral lower extremities. T-max 99.5. Remains on norepinephrine and phenylephrine drips. MRI brain revealed ventriculomegaly. No acute signs of CVA. Echocardiogram EF 40%. 12/01: Afebrile. Patient remains off sedation approximately 24 hours nonresponsive. EEG in process. BAL revealed gram-negative rods the patient continues on Zosyn. The patient remains on vasopressors norepinephrine, vasopressin, and phenylephrine. Versed infusion restarted secondary to seizure activity noted on repeat EEG this a.m.. 12/02: Afebrile. The patient is scheduled for lumbar puncture this a.m., INR 1.0 patient has been off subcu heparin approximately 3 days. The patient continues on Versed and fentanyl infusions to maintain ventilator synchrony and avoidance of subclinical seizures which were noted on the EEG yesterday. The patient continues on multiple vasopressors to include norepinephrine and phenylephrine and vasopressin. Vasopressin currently being weaned off. The patient continues to have persistent leukocytosis though it is slightly downtrending plan for ID consult today appreciate recommendations. Bronchial washings resulted E. coli, currently patient continues on Zosyn. Patient was noted to have a positive fluid balance yesterday the patient received 20 mg of Lasix with adequate diuresis the patient noted to have a sodium level slightly decreased at 135 IV fluids mixed in 0.9 normal saline. 12/03: No acute events overnight lumbar puncture performed yesterday results pending. Dilantin level therapeutic. Phenobarbital level pending. Patient off vasopressin 24 hours. Phenylephrine currently being weaned off. Patient noted to be anemic 1 unit packed cells will be transfused today no pneumothorax chest tube now placed to waterseal today. 12/04: T-max 99.4. Repeat EEG performed today. Patient now withdrawing to pain 4 extremities, and open eyes to painful stimulus. Patient noted to move bilateral lower extremities 1 this shift. Patient tolerating tube feeds, overbreathing vent will begin CPAP trials in the a.m. if clinically stable. Phenylephrine completely discontinued overnight. Norepinephrine has been decreased to 3 mics/min. hemoglobin stable. 12/05: Afebrile. Patient was weaned off of norepinephrine last p.m.. The patient has been off sedation for greater than 48 hours, no change in neurological status opens eyes to deep stimulation, moves extremities 4 withdrawing to painful stimuli. CPAP trials initiated this a.m. the patient tolerated CPAP for approximately 6.5 hours. Chest x-ray remains unchanged no pneumo thorax, plan for removal of chest tube this evening. 12/06 No events overnight. On no sedation. Afebrile. unresponsive s/p removal chest tube yesterday.. Objective Vital Signs Date Time Temp Pulse Resp B/P (MAP) Pulse Ox O2 Delivery O2 Flow Rate FiO2 12/06/17 06:00 96 16 109/59 (76) 100 12/06/17 04:40 50 12/06/17 04:00 98.4 12/05/17 19:00 Mechanical Ventilator Intake and Output 12/06/17 12/06/17 12/07/17 08:00 16:00 00:00 Intake Total 487 ml Output Total 750 ml Balance -263 ml Result Diagram: 12/06/17 0418 12/06/17 0418 Other Results Laboratory Tests Test 12/06/17 04:18 White Blood Count 9.3 TH/MM3 Red Blood Count 3.02 MIL/MM3 Hemoglobin 9.4 GM/DL Hematocrit 28.8 % Mean Corpuscular Volume 95.6 FL Mean Corpuscular Hemoglobin 31.3 PG Mean Corpuscular Hemoglobin Concent 32.7 % Red Cell Distribution Width 13.9 % Platelet Count 294 TH/MM3 Mean Platelet Volume 8.2 FL Blood Urea Nitrogen 14 MG/DL Creatinine 0.45 MG/DL Random Glucose 259 MG/DL Calcium Level 7.9 MG/DL Sodium Level 148 MEQ/L Potassium Level 4.2 MEQ/L Chloride Level 114 MEQ/L Carbon Dioxide Level 30.1 MEQ/L Anion Gap 4 MEQ/L Estimat Glomerular Filtration Rate 141 ML/MIN Phenytoin (Dilantin) Level 12.4 MCG/ML Imaging Last Impressions Chest X-Ray 12/06/17 0600 Signed Impressions: Service Date/Time: Wednesday, December 06, 2017 04:52 - CONCLUSION: Improvement in the right consolidation. No change in left effusion and left consolidation. Charlie Gardner Jr., MD Gall Bladder Ultrasound 12/03/17 0000 Signed Impressions: Service Date/Time: Sunday, December 03, 2017 07:59 - CONCLUSION: 1. Ascites and bilateral pleural effusions. 2. Mildly distended gallbladder without evidence of wall thickening or cholelithiasis. 3. Otherwise unremarkable exam. Boo Cartwright MD Lumbar Puncture Fluoroscopy 12/02/17 0000 Signed Impressions: Service Date/Time: Saturday, December 02, 2017 15:28 - CONCLUSION: Uncomplicated fluoroscopically guided lumbar puncture. Aly Leigh MD Renal Ultrasound 11/29/17 1656 Signed Impressions: Service Date/Time: Wednesday, November 29, 2017 13:16 - CONCLUSION: 1. Both kidneys are sonographically normal without hydronephrosis or nephrolithiasis. 2. Very abnormal appearance of the gallbladder with mural thickening and minimal pericholecystic fluid Dnai Titus MD Brain MRI 11/29/17 0000 Signed Impressions: Service Date/Time: Wednesday, November 29, 2017 13:27 - CONCLUSION: 1. Mild diffuse ventriculomegaly. Clinical correlation for normal pressure hydrocephalus is recommended. 2. [id number] periventricular small vessel ischemic white matter demyelination, out of proportion for age. Aly Leigh MD Head CT 11/28/17 0000 Signed Impressions: Service Date/Time: November 15:46 - CONCLUSION: 1. Ventriculomegaly suggesting central cerebral atrophy versus hydrocephalus. Clinical correlation is recommended. 2. No acute infarct, acute hemorrhage, midline shift or extra-axial fluid collections. Dev Christopher MD Procedures 12/02-planned lumbar puncture Objective Remarks GENERAL: 61-year-old female critically ill currently orotracheally intubated SKIN: Warm and dry. No rash HEAD: Atraumatic. Normocephalic. EYES: Pupils equal and round about 2 mm bilaterally reactive. No scleral icterus. No injection, some yellowish drainage noted left eye. Bilateral scleral edema ENT: No nasal bleeding or discharge. Mucous membranes pink and moist NECK: Trachea midline. No JVD. Left IJ CVL is clean dry and intact CARDIOVASCULAR: RRR. S1, S2 no S4.. No murmur RESPIRATORY: Essentially clear to auscultation bilaterally without wheezes rales or rhonchi. Right chest tube to waterseal GASTROINTESTINAL: Abdomen soft, non-tender, nondistended. Hyperactive bowel sounds appreciated MUSCULOSKELETAL: Extremities with trace upper and lower extremity edema. NEUROLOGICAL: Low-dose fentanyl 30 mics/hour, patient overbreathing the vent positive cough and gag. Upward toes. Withdraws extremities 4 to painful stimuli, and eye opening to painful stimuli. Date of Insertion: Nov 28, 2017 Line: Central Venous Catheter Side: Left Location: Internal, Jugular A/P Assessment and Plan Neuro/Psych: Acute encephalopathy secondary to diabetic ketoacidosis Anxiety disorder NOS Benzodiazepine use Possible eye infection Off sedation. Monitor neruo status. Neurology Dr. Neville Acetaminophen 650 mg by tube every 6 hours as needed fever CT brain 11/28 revealed Ventriculomegaly suggesting central cerebral atrophy versus hydrocephalus. Clinical correlation is recommended. No acute infarct, acute hemorrhage, midline shift or extra-axial fluid collections. She is on amitriptyline 10 mg daily at home. This has been held UDS negative MRI brain 11/29 revealed mild to moderate ventriculomegaly. EEG 11/28- bihemispheric slowing with some left frontocentral sharp waves and phase reversal suggesting an epileptiform abnormality and possible structural lesion in this region. No ictal pattern present. 11/30 levetiracetam 500 mg IV every 12 hours after 1 g bolus Neurology -Dr. Neville, on Phenobarb 65mg Q8, Cerebyx 200mg Q12 12/02 Ophthalmology -no eye infection Lacri-Lube applied for scleral edema 12/02-lumbar puncture-negative 12/03-cortisol level 17 ammonia level 22 Will repeat EEG today CV: History of hypertension s/p Shock Elevated troponin Acute systolic heart failure ejection fraction 40% NSTEMI cardiomyopathy Monitor HR and BP keep MAP>65mmHg on atorvastatin 10 mg by tube daily Continue aspirin 81 mg by tube daily 2D echocardiogram revealed EF around 40%. LV increased size. Septal hypokinesis. 12/03- Cardiology has signed off Resp: Acute hypoxemic respiratory failure Hemoptysis-resolved Tobacco abuse/ongoing Iatrogenic PTX status post chest tube placement PRVC 16/450/08/23/39, Ventilator bundle Albuterol/ipratropium aerosols every 6 hours with albuterol aerosols every 2 hours as needed dyspnea 12/03 Right chest tube in placed to waterseal 11/29 Status post chest tube placement see documentation, removed 12/05 Status post bronchoscopy 11/29. CXR today-Improvement in the right consolidation. No change in left effusion and left consolidation. GI: Hypoalbuminemia Glucerna 1.5 goal 50 cc an hour-minimal residual Pantoprazole 40 mg IV daily for GI prophylaxis Docusate sodium/senna 1 tablet twice daily for bowel regimen 12/03 gallbladder ultrasound : BRIELLE- resolved Hypernatremia Monitor renal function, I/O's, electrolytes replacement per protocol. Place on Free water 250ml Q12 Renal ultrasound revealed no medical renal disease. Endo: Insulin-dependent diabetes mellitus type 1 uncontrolled Diabetic ketoacidosis - resolved Originally, patient received 3 L normal saline in the ED along with 3 refills and bicarbonate, 1 ampule of calcium gluconate. Beta hydroxybutyrate cleared 11/29 Insulin pump was disconnected 11/28. According to sister Evelyn Obrien, patient had received a new insulin pump within the past 48 hours. She has no history of DKA in the past to her knowledge TSH 0.38 Continue SSI Novulog medium protocol with accucheck every 4 hours maintain euglycemia Add Levemir 5u Q12 Heme: Leukocytosis- Resolved Macrocytic anemia Monitor CBC daily. Follow trends 12/03 transfused 1 unit of packed red blood cells ID: Pneumonia Persistent leukocytosis BC x2, UA (-) inf A/B negative on vancomycin and piperacillin/tazobactam. Monitor for signs of infections ( Fever, WBC) 11/29 S/P bronchoscopy with sample sent from left lower lobe 11/29 Sputum (BAL)-E.coli ID is following 12/02-lumbar puncture-negative MSK: PT eval and tx 2+ dependent edema Access Left IJ CVL placed 11/29 Prophylaxis -GI -pantoprazole -DVT -SCD/ resume heparin SQ Critical Care: my billing statement Level 3 follow-up Edouard Mayo MD Dec 06, 2017 06:36
[2017-12-06] MEDS: RESP: ALBUTEROL 2.5 MG/IPRATROPIUM 0.5 MG NEB (SCH) NEB ×4 (07:00→22:19)
[2017-12-06] MEDS: CHLORHEXIDINE 0.12% (ORAL KIT) 15 ML CUP MT SCH ×2 (08:10→20:00)
[2017-12-06] MEDS: ASPIRIN 81 MG CHEW TAB CHEW SCH (08:13)
[2017-12-06] MEDS: MULTIVITAMIN TAB PO SCH (08:13)
[2017-12-06] MEDS: ARTIFICIAL TEARS OPTH OINT 3.5 APPLIC/3.5 GM TUBO EACH EYE SCH ×4 (08:14→21:00)
[2017-12-06] MEDS: INSULIN DETEMIR 100 UNITS/ML VIAL SQ SCH ×2 (08:15→21:00)
[2017-12-06] MEDS: FREE WATER G-TUBE SCH ×2 (08:15→21:00)
[2017-12-06] MEDS: THIAMINE INJ 100 MG in SODIUM CHLORIDE 0.9% INJ 100 ML IV SCH (08:16)
[2017-12-06] MEDS: SODIUM CHLORIDE 0.9% FLUSH 10 ML FLUSH IV FLUSH SCH ×3 (08:18→21:00)
[2017-12-06] MEDS ORDERED: PHARMACY ORDERED LAB ONE (08:45)
[2017-12-06] MEDS: VANCOMYCIN INJ 1,250 MG in SODIUM CHLOR 0.9% 250 ML INJ 250 ML IV SCH (09:04)
[2017-12-06] MEDS: FOSPHENYTOIN SODIUM 100 MG PE/2 ML VIAL IV SCH ×2 (12:47→21:00)
--- NOTE | 2017-12-06 16:20 | HHI.IDPN ---
Subjective Subjective Remarks Unresponsive on ventilator No fevers Antibiotics VANCOMYCIN ZOSYN Lines LEFT IJ 11/29 CVL Allergies: Coded Allergies: No Known Allergies (Unverified Allergy, Unknown, 11/28/17) Objective . Vital Signs Date Time Temp Pulse Resp B/P (MAP) Pulse Ox O2 Delivery O2 Flow Rate FiO2 12/06/17 15:00 96 16 117/62 (80) 100 12/06/17 15:00 96 12/06/17 14:00 94 16 105/75 (85) 100 12/06/17 14:00 94 12/06/17 13:00 98 16 117/72 (87) 100 12/06/17 13:00 98 12/06/17 12:40 40 12/06/17 12:00 92 12/06/17 12:00 40 12/06/17 12:00 98.4 92 25 109/55 (73) 99 12/06/17 11:00 94 14 104/59 (74) 100 12/06/17 11:00 94 12/06/17 10:59 100 40 12/06/17 10:00 94 12/06/17 10:00 94 19 100 12/06/17 09:00 96 14 109/65 (80) 100 12/06/17 09:00 96 14 100 12/06/17 09:00 96 12/06/17 08:10 100 40 12/06/17 08:00 82 12/06/17 08:00 82 15 95/49 (64) 100 12/06/17 08:00 98.4 12/06/17 08:00 40 12/06/17 07:00 100 Mechanical Ventilator 50 12/06/17 07:00 98 15 100 12/06/17 07:00 98 12/06/17 06:00 96 16 109/59 (76) 100 12/06/17 06:00 96 12/06/17 05:00 96 16 103/61 (75) 100 12/06/17 04:40 100 50 12/06/17 04:00 98.4 92 104/58 (73) 100 18 04:00 92 12/06/17 04:00 50 12/06/17 03:00 94 109/59 (76) 100 12/06/17 02:00 96 12/06/17 02:00 96 16 109/78 (88) 96 12/06/17 01:40 99 50 12/06/17 01:00 90 16 102/52 (69) 90 12/06/17 00:00 98.1 98 15 113/59 (77) 100 12/06/17 00:00 50 12/06/17 00:00 104 12/05/17 23:00 101 0 103/57 (72) 100 Arterial Line 12/05/17 22:30 100 50 12/05/17 22:00 106 16 109/57 (74) 100 12/05/17 22:00 104 12/05/17 21:00 96 15 109/61 (77) 100 12/05/17 20:00 50 12/05/17 20:00 96 12/05/17 20:00 99.1 94 16 104/53 (70) 100 12/05/17 19:30 108 24 140/72 (94) 12/05/17 19:20 99 50 12/05/17 19:00 102 16 122/56 (78) 97 12/05/17 19:00 Mechanical Ventilator 50 12/05/17 18:00 104 12/05/17 18:00 103 117/61 (79) 118/54 (75) 12/05/17 18:00 104 16 118/54 (75) 100 12/05/17 17:00 104 12/05/17 17:00 104 16 110/57 (74) 100 118/54 (75) 12/06/17 12/06/17 12/07/17 15:00 23:00 07:00 Intake Total 463.5 ml Balance 463.5 ml IV Total 463.5 ml . Laboratory Tests Test 12/05/17 06:00 12/06/17 04:18 White Blood Count 8.7 TH/MM3 9.3 TH/MM3 Red Blood Count 2.94 MIL/MM3 3.02 MIL/MM3 Hemoglobin 9.3 GM/DL 9.4 GM/DL Hematocrit 28.1 % 28.8 % Mean Corpuscular Volume 95.5 FL 95.6 FL Mean Corpuscular Hemoglobin 31.7 PG 31.3 PG Mean Corpuscular Hemoglobin Concent 33.2 % 32.7 % Red Cell Distribution Width 13.9 % 13.9 % Platelet Count 257 TH/MM3 294 TH/MM3 Mean Platelet Volume 8.2 FL 8.2 FL Neutrophils (%) (Auto) 68.4 % Lymphocytes (%) (Auto) 13.7 % Monocytes (%) (Auto) 15.4 % Eosinophils (%) (Auto) 2.2 % Basophils (%) (Auto) 0.3 % Neutrophils # (Auto) 6.0 TH/MM3 Lymphocytes # (Auto) 1.2 TH/MM3 Monocytes # (Auto) 1.3 TH/MM3 Eosinophils # (Auto) 0.2 TH/MM3 Basophils # (Auto) 0.0 TH/MM3 CBC Comment DIFF FINAL Differential Comment Laboratory Tests Test 12/05/17 06:00 12/06/17 04:18 Blood Urea Nitrogen 16 MG/DL 14 MG/DL Creatinine 0.54 MG/DL 0.45 MG/DL Random Glucose 181 MG/DL 259 MG/DL Calcium Level 7.7 MG/DL 7.9 MG/DL Phosphorus Level 2.7 MG/DL Magnesium Level 2.4 MG/DL Sodium Level 148 MEQ/L 148 MEQ/L Potassium Level 3.6 MEQ/L 4.2 MEQ/L Chloride Level 115 MEQ/L 114 MEQ/L Carbon Dioxide Level 29.1 MEQ/L 30.1 MEQ/L Anion Gap 4 MEQ/L 4 MEQ/L Estimat Glomerular Filtration Rate 114 ML/MIN 141 ML/MIN Physical Exam SEDATED ON VENT ORALLY INTUBATED +LEFT IJ. Orogastric tube CHEST : LUNGS ARE COARSE EQUAL CARDIAC: RRR ABD: SOFT ACTIVE, bowel sounds heard EXT + EDEMA Assessment & Plan Diagnosis: (1) Respiratory failure ICD Codes: J96.90 - Respiratory failure, unspecified, unspecified whether with hypoxia or hypercapnia Status: Acute (2) Encephalopathy, metabolic ICD Codes: G93.41 - Metabolic encephalopathy Status: Acute (3) Leukocytosis ICD Codes: D72.829 - Elevated white blood cell count, unspecified Status: Resolved Plan: CSF is normal Will continue IV Zosyn. CXR with a consolidation. Stop the IV Vancomycin Problem Qualifiers (1) Leukocytosis: Qualified Codes: D72.829 - Elevated white blood cell count, unspecified Stacey Ventura MD Dec 06, 2017 16:20
[2017-12-06] MEDS: HEPARIN SODIUM - SQ 10,000 UNITS/ML VIAL SQ SCH (18:00)
[2017-12-06] MEDS: PANTOPRAZOLE SODIUM 40 MG VIAL IV PUSH SCH (21:00)
[2017-12-06] MEDS: ATORVASTATIN 10 MG TAB PO SCH (21:00)
[2017-12-07] VITALS (35 sets, daily range): BP systolic 89–133; BP diastolic 47–71; PULSE 76–112; RESP 12–26; TEMP 98.7–100.3; O2SAT 98–100
--- NOTE | 2017-12-07 01:06 | RADRPT ---
EXAM DATE/TIME: 12/07/2017 00:48 [facility] COMPARISON: CHEST SINGLE AP, December 06, 2017, 4:52. INDICATIONS : Post NG tube placement. MEDICAL HISTORY : Diabetes mellitus type I. SURGICAL HISTORY : None. ENCOUNTER: Subsequent ACUITY: 1 day PAIN SCORE: Non-responsive. LOCATION: Bilateral chest FINDINGS: 2 portable frontal views of the chest show diffuse bilateral pulmonary infiltrates which have progres sed from the prior study. Small bilateral pleural effusions. Heart is normal in size. The endotrachea l tube 3 cm proximal to kera. Nasogastric tube tip in the region of the body of the stomach. Left c entral line. CONCLUSION: 1. 2 the NG tube in the region of the body the stomach. 2. Worsening pulmonary infiltrates with stable small effusions. Charlie Gardner Jr., MD on December 07, 2017 at 1:03 Board Certified Radiologist. This report was verified electronically.
[2017-12-07] MEDS: INSULIN ASPART SUPPLEMENTAL SCALE SQ SCH ×6 (01:13→20:35)
[2017-12-07] MEDS: HEPARIN SODIUM - SQ 10,000 UNITS/ML VIAL SQ SCH ×3 (02:35→18:11)
[2017-12-07] MEDS: CHLORHEXIDINE GLUCONATE 2 % 1 PACK (2 CLOTHS) TOP SCH (04:00)
[2017-12-07] MEDS: RESP: ALBUTEROL 2.5 MG/IPRATROPIUM 0.5 MG NEB (SCH) NEB ×4 (04:10→22:10)
[2017-12-07] MEDS: PIPERACIL-TAZO 4.5 GM PREMIX 100 ML IV SCH ×4 (04:50→22:52)
[2017-12-07 05:34] LABS: AUTOMATED NEUTROPHIL # 8.3 TH/MM3 (1.8-7.7); BASOPHIL % 0.4 % (0.0-2.0); EOSINOPHIL # 0.1 TH/MM3 (0-0.4); EOSINOPHIL % 1.2 % (0.0-4.0); HEMATOCRIT 31.2 % (35.0-46.0); HEMOGLOBIN 10.1 GM/DL (11.6-15.3); LYMPH % 13.4 % (9.0-44.0); LYMPHOCYTE # 1.5 TH/MM3 (1.0-4.8); MEAN CELL VOLUME 94.6 FL (80.0-100.0); MEAN CORPUSCULAR HEMOGLOBIN 30.8 PG (27.0-34.0); MEAN CORPUSCULAR HGB CONC 32.5 % (32.0-36.0); MEAN PLATELET VOLUME 7.3 FL (7.0-11.0); MONO % 11.9 % (0.0-8.0); MONOCYTE # 1.3 TH/MM3 (0-0.9); NEUT % 73.1 % (16.0-70.0); PLATELET COUNT 386 TH/MM3 (150-450); RED CELL DISTRIBUTION WIDTH 13.9 % (11.6-17.2); WHITE BLOOD COUNT 11.2 TH/MM3 (4.0-11.0)
[2017-12-07 05:42] LABS: CHLORIDE 114 MEQ/L (98-107); SODIUM (NA) 150 MEQ/L (136-145)
[2017-12-07 05:45] LABS: CALCIUM 7.9 MG/DL (8.5-10.1)
[2017-12-07 05:46] LABS: ALBUMIN 1.7 GM/DL (3.4-5.0); BLOOD UREA NITROGEN 16 MG/DL (7-18); GLUCOSE,RANDOM 164 MG/DL (74-106); MAGNESIUM 2.4 MG/DL (1.5-2.5)
[2017-12-07 05:49] LABS: ALT (GPT) 36 U/L (10-53); AST (GOT) 70 U/L (15-37); CREATININE 0.84 MG/DL (0.50-1.00); GLOMERULAR FILTRATION RATE 68 ML/MIN (>89); PHOSPHORUS 3.4 MG/DL (2.5-4.9)
[2017-12-07 05:50] LABS: TOTAL BILIRUBIN ADULT 0.1 MG/DL (0.2-1.0); TOTAL PROTEIN 5.2 GM/DL (6.4-8.2)
[2017-12-07 05:51] LABS: ALKALINE PHOSPHATASE 143 U/L (45-117)
[2017-12-07 06:00] LABS: PHENYTOIN (DILANTIN) 9.3 MCG/ML (10.0-20.0)
--- NOTE | 2017-12-07 08:20 | HHI.CCPN ---
Subjective Remarks/Hospital Course This is a 51-year-old female. Date of admission 11/28/2017. Past medical history includes diabetes mellitus type 1 uncontrolled insulin- dependent with retinopathy on home insulin pump, hypertension, allergic rhinitis and chronic benzodiazepine use. She also has history of breast cancer on raloxifene she originally presented to [facility] ED During the workup, patient was noted to have a blood sugar of 808. Elevated acetone. Sodium 135. Potassium 6.0. Ferritin 2.1. Leukocytosis 25,000. Macrocytic anemia. UA negative for infectious etiology. She was bolused with 3 L of 0.9% NaCl IV fluid bolus. She is received 3 ampules of sodium bicarbonate and 1 g calcium gluconate. Chest x-ray post procedure revealed the CT scan of the head is read by the radiologist as ventriculomegaly but otherwise no acute findings. 11/29: Patient had nonrebreather off all night. PTX now 8 mm. Yells "Help me " "I don't know" Gap has closed, will transition back to SQ insulin if able to pass swallow. Replacing lytes. SUBJECTIVE: 11/30: Patient opens eyes to voice. Leftward gaze. Frequent blinking. Withdraws to stimulation bilateral lower extremities. T-max 99.5. Remains on norepinephrine and phenylephrine drips. MRI brain revealed ventriculomegaly. No acute signs of CVA. Echocardiogram EF 40%. 12/01: Afebrile. Patient remains off sedation approximately 24 hours nonresponsive. EEG in process. BAL revealed gram-negative rods the patient continues on Zosyn. The patient remains on vasopressors norepinephrine, vasopressin, and phenylephrine. Versed infusion restarted secondary to seizure activity noted on repeat EEG this a.m.. 12/02: Afebrile. The patient is scheduled for lumbar puncture this a.m., INR 1.0 patient has been off subcu heparin approximately 3 days. The patient continues on Versed and fentanyl infusions to maintain ventilator synchrony and avoidance of subclinical seizures which were noted on the EEG yesterday. The patient continues on multiple vasopressors to include norepinephrine and phenylephrine and vasopressin. Vasopressin currently being weaned off. The patient continues to have persistent leukocytosis though it is slightly downtrending plan for ID consult today appreciate recommendations. Bronchial washings resulted E. coli, currently patient continues on Zosyn. Patient was noted to have a positive fluid balance yesterday the patient received 20 mg of Lasix with adequate diuresis the patient noted to have a sodium level slightly decreased at 135 IV fluids mixed in 0.9 normal saline. 12/03: No acute events overnight lumbar puncture performed yesterday results pending. Dilantin level therapeutic. Phenobarbital level pending. Patient off vasopressin 24 hours. Phenylephrine currently being weaned off. Patient noted to be anemic 1 unit packed cells will be transfused today no pneumothorax chest tube now placed to waterseal today. 12/04: T-max 99.4. Repeat EEG performed today. Patient now withdrawing to pain 4 extremities, and open eyes to painful stimulus. Patient noted to move bilateral lower extremities 1 this shift. Patient tolerating tube feeds, overbreathing vent will begin CPAP trials in the a.m. if clinically stable. Phenylephrine completely discontinued overnight. Norepinephrine has been decreased to 3 mics/min. hemoglobin stable. 12/05: Afebrile. Patient was weaned off of norepinephrine last p.m.. The patient has been off sedation for greater than 48 hours, no change in neurological status opens eyes to deep stimulation, moves extremities 4 withdrawing to painful stimuli. CPAP trials initiated this a.m. the patient tolerated CPAP for approximately 6.5 hours. Chest x-ray remains unchanged no pneumo thorax, plan for removal of chest tube this evening. 12/06 No events overnight. On no sedation. Afebrile. unresponsive s/p removal chest tube yesterday.. Subjective: 12/07 versed drip off since 12/04.. Eyes open to noxious stimuli, spontaneously moved R hand, withdraws x4. Temp max 99.3. WBC 11.2 today. Remains off pressors. On CPAP 05/23 and tolerating Objective Vital Signs Date Time Temp Pulse Resp B/P (MAP) Pulse Ox O2 Delivery O2 Flow Rate FiO2 12/07/17 08:00 82 12/07/17 08:00 16 119/66 (83) 100 12/07/17 08:00 40 12/07/17 07:00 Mechanical Ventilator 12/07/17 04:00 99.2 12/06/17 19:12 2.00 Intake and Output 12/07/17 12/07/17 12/08/17 08:00 16:00 00:00 Output Total 1600 ml Balance -1600 ml Result Diagram: 12/07/17 0515 12/07/17 0515 Imaging Last Impressions Chest X-Ray 12/06/17 0600 Signed Impressions: Service Date/Time: Wednesday, December 06, 2017 04:52 - CONCLUSION: Improvement in the right consolidation. No change in left effusion and left consolidation. Charlie Gardner Jr., MD Gall Bladder Ultrasound 12/03/17 0000 Signed Impressions: Service Date/Time: Sunday, December 03, 2017 07:59 - CONCLUSION: 1. Ascites and bilateral pleural effusions. 2. Mildly distended gallbladder without evidence of wall thickening or cholelithiasis. 3. Otherwise unremarkable exam. Boo Cartwright MD Lumbar Puncture Fluoroscopy 12/02/17 0000 Signed Impressions: Service Date/Time: Saturday, December 02, 2017 15:28 - CONCLUSION: Uncomplicated fluoroscopically guided lumbar puncture. Aly Leigh MD Renal Ultrasound 11/29/17 1656 Signed Impressions: Service Date/Time: Wednesday, November 29, 2017 13:16 - CONCLUSION: 1. Both kidneys are sonographically normal without hydronephrosis or nephrolithiasis. 2. Very abnormal appearance of the gallbladder with mural thickening and minimal pericholecystic fluid Dani Titus MD Brain MRI 11/29/17 0000 Signed Impressions: Service Date/Time: Wednesday, November 29, 2017 13:27 - CONCLUSION: 1. Mild diffuse ventriculomegaly. Clinical correlation for normal pressure hydrocephalus is recommended. 2. Laix-vu-[id number] periventricular small vessel ischemic white matter demyelination, out of proportion for age. Aly Leigh MD Head CT 11/28/17 0000 Signed Impressions: Service Date/Time: November 15:46 - CONCLUSION: 1. Ventriculomegaly suggesting central cerebral atrophy versus hydrocephalus. Clinical correlation is recommended. 2. No acute infarct, acute hemorrhage, midline shift or extra-axial fluid collections. Dev Christopher MD Procedures 12/02-planned lumbar puncture Objective Remarks GENERAL: 61-year-old female critically ill currently orotracheally intubated SKIN: Warm and dry. No rash HEAD: Atraumatic. Normocephalic. EYES: Pupils equal and round about 4 mm and reactive to 2 mm bilaterally. No scleral icterus. No injection. Bilateral scleral edema ENT: No nasal bleeding or discharge. Mucous membranes pink and moist NECK: Trachea midline. No JVD. Left IJ CVL is clean dry and intact CARDIOVASCULAR: RRR. . No murmur RESPIRATORY: 8.[address] On CPAP 05/23. CTAB GASTROINTESTINAL: NGT L nare with tube feeds running. Abdomen soft, non-tender, nondistended. Hyperactive bowel sounds appreciated MUSCULOSKELETAL: Extremities with 1+ edema bilateral hands and of bilateral lower extremities NEUROLOGICAL: Pupils reactive as per above + cough + gag. Eyes open to deep central noxious stimuli. Withdraws with all extremities. Some spontaneous movement was noted of her right hand. Date of Insertion: Nov 28, 2017 Line: Central Venous Catheter Side: Left Location: Internal, Jugular A/P Assessment and Plan Neuro/Psych: Acute encephalopathy secondary to diabetic ketoacidosis Anxiety disorder NOS Benzodiazepine use Off sedation. Monitor neruo status. Neurology Dr. Neville Acetaminophen 650 mg by tube every 6 hours as needed fever CT brain 11/28 revealed Ventriculomegaly suggesting central cerebral atrophy versus hydrocephalus. Clinical correlation is recommended. No acute infarct, acute hemorrhage, midline shift or extra-axial fluid collections. She is on amitriptyline 10 mg daily at home. This has been held UDS negative MRI brain 11/29 revealed mild to moderate ventriculomegaly. EEG 11/28- bihemispheric slowing with some left frontocentral sharp waves and phase reversal suggesting an epileptiform abnormality and possible structural lesion in this region. No ictal pattern present. 11/30 levetiracetam 500 mg IV every 12 hours after 1 g bolus, Keppra discontinued 12/05 per neurology Neurology -Dr. Neville, on Phenobarb 65mg Q8, Cerebyx 200mg/PE Q12 12/02 Ophthalmology -no eye infection Lacri-Lube applied for scleral edema 12/02-lumbar puncture-negative 12/03-cortisol level 17 ammonia level 22 Will repeat EEG today Continue to hold sedation. CV: History of hypertension Shock, resolved Elevated troponin Acute systolic heart failure ejection fraction 40% NSTEMI cardiomyopathy Monitor HR and BP keep MAP>65mmHg on atorvastatin 10 mg by tube daily Continue aspirin 81 mg by tube daily 2D echocardiogram revealed EF around 40%. LV increased size. Septal hypokinesis. 12/03- Cardiology has signed off Resp: Acute hypoxemic respiratory failure Hemoptysis-resolved Tobacco abuse/ongoing Iatrogenic PTX status post chest tube placement [facility] 16/450/08/23/39, Daily SBT. Tolerating CPAP, mental status prevents extubation at this time. Continue daily CPAP and neuro assessments off sedation. Intubated 11/29 Mechanical ventilation day #9. Hold off on trach at this time; may improve for trial extubation. Ventilator bundle Albuterol/ipratropium aerosols every 6 hours with albuterol aerosols every 2 hours as needed dyspnea 12/03 Right chest tube in placed to waterseal 11/29 Status post chest tube placement see documentation, removed 12/05. Status post bronchoscopy 11/29. CXR today-bilateral pleural effusion, RLL opacity may be worse. GI: Hypoalbuminemia Glucerna 1.5, change goal rate to 40 mL/h per nutrition recommendations. Change to famotidine for GI prophylaxis Docusate sodium/senna 1 tablet twice daily for bowel regimen 12/03 gallbladder ultrasound -gallbladder mildly distended without evidence of wall thickening or cholelithiasis. There is ascites and pleural effusions. Continue multivitamin/thiamine. FEN/RENAL: BRIELLE- resolved Hypernatremia Monitor renal function, I/O's, electrolytes replacement per protocol. Increase Free water 250ml Qq6 hours. Lasix 40 mg IV q12H x2 . KCL 540 MEQ per tube x2 doses. Renal ultrasound revealed no medical renal disease. Endo: Insulin-dependent diabetes mellitus type 1 uncontrolled Diabetic ketoacidosis - resolved Originally, patient received 3 L normal saline in the ED along with 3 refills and bicarbonate, 1 ampule of calcium gluconate. Beta hydroxybutyrate cleared 11/29 Insulin pump was disconnected 11/28. According to sister Evelyn Obrien, patient had received a new insulin pump within the past 48 hours. She has no history of DKA in the past to her knowledge TSH 0.38 Continue SSI Novulog medium protocol with accucheck every 4 hours maintain euglycemia Glucose now at target, continue Levemir 5 q12 Heme: Leukocytosis- Resolved Macrocytic anemia Monitor CBC daily. Follow trends 12/03 transfused 1 unit of packed red blood cells ID: Community-acquired versus aspiration Persistent leukocytosis BC x2, UA (-) inf A/B negative 11/29 S/P bronchoscopy with sample sent from left lower lobe 11/29 Sputum (BAL)-E.coli, pansensitive ID is following, Dr. Mukesh On zosyn 12/03 #5. Vancomycin has been discontinued 12/06 per ID 12/02-lumbar puncture-negative Access Left IJ CVL placed 11/29 #9. No longer indicated. Will placement peripheral IV and discontinue central venous line Prophylaxis -GI -famotidine for stress ulcer prophylaxis ( shortage pantoprazole)nursing -DVT -SCD/continue heparin SQ Critical Care: Level 3 follow-up Nayeli Munoz MD Dec 07, 2017 08:20
[2017-12-07] MEDS: SODIUM CHLORIDE 0.9% FLUSH 10 ML FLUSH IV FLUSH SCH ×3 (09:00→20:36)
[2017-12-07] MEDS: FREE WATER G-TUBE SCH ×3 (09:00→20:35)
[2017-12-07] MEDS: FUROSEMIDE 40 MG/4 ML VIAL IV PUSH SCH ×2 (10:31→20:37)
[2017-12-07] MEDS: MULTIVITAMIN TAB PO SCH (10:32)
[2017-12-07] MEDS: FAMOTIDINE 20 MG TAB NG SCH ×2 (10:32→20:37)
[2017-12-07] MEDS: FOSPHENYTOIN SODIUM 100 MG PE/2 ML VIAL IV SCH ×2 (10:32→20:36)
[2017-12-07] MEDS: ASPIRIN 81 MG CHEW TAB CHEW SCH (10:32)
[2017-12-07] MEDS: INSULIN DETEMIR 100 UNITS/ML VIAL SQ SCH ×2 (10:33→20:37)
[2017-12-07] MEDS: ARTIFICIAL TEARS OPTH OINT 3.5 APPLIC/3.5 GM TUBO EACH EYE SCH ×4 (10:33→20:35)
[2017-12-07] MEDS: CHLORHEXIDINE 0.12% (ORAL KIT) 15 ML CUP MT SCH ×2 (10:34→20:00)
[2017-12-07] MEDS: THIAMINE INJ 100 MG in SODIUM CHLORIDE 0.9% INJ 100 ML IV SCH (10:37)
[2017-12-07] MEDS: POTASSIUM CHLORIDE 25 MEQ EFFERVESCENT TAB PO SCH ×2 (10:42→20:37)
--- NOTE | 2017-12-07 13:31 | MG ---
cc: Chelly Moody MD DATE OF STUDY: 12/07/2017 REQUESTING PHYSICIAN: Dr. Munoz. INDICATION: An EEG was obtained on this 61-year-old patient with a history of decreased responsiveness. DESCRIPTION: This EEG shows bilateral slowing. The slowing appears to be probably more severe on the left. There is a higher amplitude on the left, but this might be the more significant abnormality. There are no paroxysmal/ictal/epileptiform discharges. There is some generalized muscle activity as the patient apparently had some head movement. Background seems to be reactive. INTERPRETATION: Abnormal electroencephalogram because of bilateral slowing. There is apparent slower rhythms on the left and more attenuation on the right. The findings suggest bihemispheric abnormalities and it is difficult to differentiate the worst hemisphere on the base of the EEG. No epileptiform features present on this study. Chelly Moody MD OFC/KD , 01:05 PM , 01:30 PM
--- NOTE | 2017-12-07 15:55 | HHI.IDPN ---
Subjective Subjective Remarks ID FU DR FERRELL Unresponsive on ventilator No fevers Antibiotics ZOSYN Lines cvl discontinued piv in each arm Allergies: Coded Allergies: No Known Allergies (Unverified Allergy, Unknown, 11/28/17) Review of Systems Constitutional Constitutional Remarks NO FEVERS SEDATED ON VENT SUPPORT Objective . Vital Signs Date Time Temp Pulse Resp B/P (MAP) Pulse Ox O2 Delivery O2 Flow Rate FiO2 12/07/17 15:00 100 18 115/65 (82) 100 12/07/17 14:52 92 16 98/53 (68) 100 12/07/17 14:00 94 12 89/50 (63) 100 12/07/17 14:00 93 12/07/17 13:00 106 22 110/59 (76) 100 12/07/17 12:00 101 12/07/17 12:00 100 22 104/57 (73) 100 12/07/17 12:00 40 12/07/17 11:00 112 26 110/62 (78) 100 12/07/17 10:55 100 40 12/07/17 10:00 98 16 115/63 (80) 100 12/07/17 10:00 101 12/07/17 09:00 98 18 126/67 (86) 100 12/07/17 08:05 40 12/07/17 08:05 100 40 12/07/17 08:00 82 12/07/17 08:00 96 16 119/66 (83) 100 12/07/17 08:00 40 12/07/17 08:00 98.9 96 16 119/66 (83) 100 12/07/17 07:00 Mechanical Ventilator 40 12/07/17 07:00 94 16 124/66 (85) 100 12/07/17 07:00 94 16 124/66 (85) 100 12/07/17 06:14 12/07/17 06:11 90 12/07/17 06:00 92 15 115/65 (82) 100 12/07/17 05:00 90 17 131/71 (91) 100 12/07/17 04:35 99 40 12/07/17 04:00 40 12/07/17 04:00 99.2 88 16 121/64 (83) 100 12/07/17 04:00 93 12/07/17 03:00 92 15 118/64 (82) 100 12/07/17 02:08 77 12/07/17 02:00 76 16 97/50 (66) 100 12/07/17 01:00 84 15 117/59 (78) 100 12/07/17 00:47 100 40 12/07/17 00:00 99.1 86 15 114/56 (75) 100 12/07/17 00:00 40 12/07/17 00:00 88 12/06/17 23:00 84 15 109/57 (74) 100 12/06/17 22:18 100 40 12/06/17 22:00 91 12/06/17 22:00 90 16 119/61 (80) 100 12/06/17 21:00 99.1 94 16 131/76 (94) 100 12/06/17 20:00 90 12/06/17 20:00 40 12/06/17 19:25 100 40 12/06/17 19:12 100 Mechanical Ventilator 2.00 40 12/06/17 19:00 96 15 132/69 (90) 100 12/06/17 18:00 95 135/69 (91) 12/06/17 18:00 94 16 135/69 (91) 98 12/06/17 18:00 94 12/06/17 17:00 99.3 12/06/17 17:00 88 12/06/17 17:00 88 23 129/74 (92) 100 12/06/17 16:55 100 40 12/06/17 16:00 84 12/06/17 16:00 84 15 99/57 (71) 100 12/06/17 16:00 40 12/07/17 12/07/17 12/08/17 15:00 23:00 07:00 Output Total 1 ml Balance -1 ml Stool Total 1 ml . Laboratory Tests Test 12/06/17 04:18 12/07/17 05:15 White Blood Count 9.3 TH/MM3 11.2 TH/MM3 Red Blood Count 3.02 MIL/MM3 3.30 MIL/MM3 Hemoglobin 9.4 GM/DL 10.1 GM/DL Hematocrit 28.8 % 31.2 % Mean Corpuscular Volume 95.6 FL 94.6 FL Mean Corpuscular Hemoglobin 31.3 PG 30.8 PG Mean Corpuscular Hemoglobin Concent 32.7 % 32.5 % Red Cell Distribution Width 13.9 % 13.9 % Platelet Count 294 TH/MM3 386 TH/MM3 Mean Platelet Volume 8.2 FL 7.3 FL Neutrophils (%) (Auto) 73.1 % Lymphocytes (%) (Auto) 13.4 % Monocytes (%) (Auto) 11.9 % Eosinophils (%) (Auto) 1.2 % Basophils (%) (Auto) 0.4 % Neutrophils # (Auto) 8.3 TH/MM3 Lymphocytes # (Auto) 1.5 TH/MM3 Monocytes # (Auto) 1.3 TH/MM3 Eosinophils # (Auto) 0.1 TH/MM3 Basophils # (Auto) 0.0 TH/MM3 CBC Comment DIFF FINAL Differential Comment Laboratory Tests Test 12/06/17 04:18 12/07/17 05:15 Blood Urea Nitrogen 14 MG/DL 16 MG/DL Creatinine 0.45 MG/DL 0.84 MG/DL Random Glucose 259 MG/DL 164 MG/DL Calcium Level 7.9 MG/DL 7.9 MG/DL Sodium Level 148 MEQ/L 150 MEQ/L Potassium Level 4.2 MEQ/L 3.6 MEQ/L Chloride Level 114 MEQ/L 114 MEQ/L Carbon Dioxide Level 30.1 MEQ/L 31.0 MEQ/L Anion Gap 4 MEQ/L 5 MEQ/L Estimat Glomerular Filtration Rate 141 ML/MIN 68 ML/MIN Total Protein 5.2 GM/DL Albumin 1.7 GM/DL Phosphorus Level 3.4 MG/DL Magnesium Level 2.4 MG/DL Alkaline Phosphatase 143 U/L Aspartate Amino Transf (AST/SGOT) 70 U/L Alanine Aminotransferase (ALT/SGPT) 36 U/L Total Bilirubin 0.1 MG/DL Physical Exam SEDATED ON VENT ORALLY INTUBATED +LEFT IJ removed. Orogastric tube CHEST : LUNGS ARE COARSE DIMINISHED IN BASES CARDIAC: RRR ABD: SOFT ACTIVE, bowel sounds heard EXT + EDEMA Assessment & Plan Diagnosis: (1) DKA (diabetic ketoacidoses) ICD Codes: E13.10 - Other specified diabetes mellitus with ketoacidosis without coma Status: Acute (2) Type 1 diabetes ICD Codes: E10.9 - Type 1 diabetes mellitus without complications Status: Acute (3) UTI (urinary tract infection) ICD Codes: N39.0 - Urinary tract infection, site not specified Status: Acute (4) Respiratory failure ICD Codes: J96.90 - Respiratory failure, unspecified, unspecified whether with hypoxia or hypercapnia Status: Acute (5) Seizure cerebral ICD Codes: I67.89 - Other cerebrovascular disease Status: Acute (6) Encephalopathy, metabolic ICD Codes: G93.41 - Metabolic encephalopathy Status: Acute Plan: ON / ZOSYN CULTURES NEGATIVE WILL FU Problem Qualifiers (1) DKA (diabetic ketoacidoses): Qualified Codes: E10.11 - Type 1 diabetes mellitus with ketoacidosis with coma Sveta Duran [facility] Dec 07, 2017 15:55
[2017-12-07] MEDS: ATORVASTATIN 10 MG TAB PO SCH (20:42)
[2017-12-08] VITALS (41 sets, daily range): BP systolic 84–123; BP diastolic 46–66; PULSE 89–110; RESP 8–20; TEMP 99.3–101; O2SAT 98–100
[2017-12-08] MEDS: INSULIN ASPART SUPPLEMENTAL SCALE SQ SCH ×7 (00:17→23:55)
[2017-12-08] MEDS: HEPARIN SODIUM - SQ 10,000 UNITS/ML VIAL SQ SCH ×3 (02:24→18:13)
[2017-12-08] MEDS: FREE WATER G-TUBE SCH ×4 (03:00→20:46)
[2017-12-08] MEDS: RESP: ALBUTEROL 2.5 MG/IPRATROPIUM 0.5 MG NEB (SCH) NEB ×4 (03:30→21:35)
[2017-12-08] MEDS: CHLORHEXIDINE GLUCONATE 2 % 1 PACK (2 CLOTHS) TOP SCH (04:00)
[2017-12-08] MEDS: PIPERACIL-TAZO 4.5 GM PREMIX 100 ML IV SCH (05:00)
[2017-12-08 06:47] LABS: AUTOMATED NEUTROPHIL # 9.5 TH/MM3 (1.8-7.7); BASOPHIL # 0.1 TH/MM3 (0-0.2); BASOPHIL % 0.7 % (0.0-2.0); EOSINOPHIL # 0.2 TH/MM3 (0-0.4); EOSINOPHIL % 1.3 % (0.0-4.0); HEMATOCRIT 27.8 % (35.0-46.0); HEMOGLOBIN 9.1 GM/DL (11.6-15.3); LYMPH % 17.2 % (9.0-44.0); LYMPHOCYTE # 2.2 TH/MM3 (1.0-4.8); MEAN CELL VOLUME 96.2 FL (80.0-100.0); MEAN CORPUSCULAR HEMOGLOBIN 31.4 PG (27.0-34.0); MEAN CORPUSCULAR HGB CONC 32.6 % (32.0-36.0); MEAN PLATELET VOLUME 8.2 FL (7.0-11.0); NEUT % 72.8 % (16.0-70.0); PLATELET COUNT 446 TH/MM3 (150-450); RED BLOOD COUNT 2.88 MIL/MM3 (4.00-5.30); RED CELL DISTRIBUTION WIDTH 13.9 % (11.6-17.2)
[2017-12-08 06:57] LABS: CHLORIDE 114 MEQ/L (98-107); SODIUM (NA) 150 MEQ/L (136-145)
[2017-12-08 07:01] LABS: ALBUMIN 1.7 GM/DL (3.4-5.0); BICARBONATE 30.4 MEQ/L (21.0-32.0); BLOOD UREA NITROGEN 21 MG/DL (7-18); GLUCOSE,RANDOM 158 MG/DL (74-106)
[2017-12-08 07:04] LABS: ALT (GPT) 44 U/L (10-53); AST (GOT) 73 U/L (15-37)
[2017-12-08 07:05] LABS: GLOMERULAR FILTRATION RATE 45 ML/MIN (>89)
[2017-12-08 07:06] LABS: TOTAL BILIRUBIN ADULT 0.1 MG/DL (0.2-1.0); TOTAL PROTEIN 5.2 GM/DL (6.4-8.2)
[2017-12-08 07:07] LABS: ALKALINE PHOSPHATASE 161 U/L (45-117)
[2017-12-08 07:16] LABS: PHENYTOIN (DILANTIN) 9.7 MCG/ML (10.0-20.0)
--- NOTE | 2017-12-08 08:05 | HHI.CCPN ---
Subjective Remarks/Hospital Course This is a 51-year-old female. Date of admission 11/28/2017. Past medical history includes diabetes mellitus type 1 uncontrolled insulin- dependent with retinopathy on home insulin pump, hypertension, allergic rhinitis and chronic benzodiazepine use. She also has history of breast cancer on raloxifene she originally presented to [facility] ED During the workup, patient was noted to have a blood sugar of 808. Elevated acetone. Sodium 135. Potassium 6.0. Ferritin 2.1. Leukocytosis 25,000. Macrocytic anemia. UA negative for infectious etiology. She was bolused with 3 L of 0.9% NaCl IV fluid bolus. She is received 3 ampules of sodium bicarbonate and 1 g calcium gluconate. Chest x-ray post procedure revealed the CT scan of the head is read by the radiologist as ventriculomegaly but otherwise no acute findings. 11/29: Patient had nonrebreather off all night. PTX now 8 mm. Yells "Help me " "I don't know" Gap has closed, will transition back to SQ insulin if able to pass swallow. Replacing lytes. 11/30: Patient opens eyes to voice. Leftward gaze. Frequent blinking. Withdraws to stimulation bilateral lower extremities. T-max 99.5. Remains on norepinephrine and phenylephrine drips. MRI brain revealed ventriculomegaly. No acute signs of CVA. Echocardiogram EF 40%. 12/01: Afebrile. Patient remains off sedation approximately 24 hours nonresponsive. EEG in process. BAL revealed gram-negative rods the patient continues on Zosyn. The patient remains on vasopressors norepinephrine, vasopressin, and phenylephrine. Versed infusion restarted secondary to seizure activity noted on repeat EEG this a.m.. 12/02: Afebrile. The patient is scheduled for lumbar puncture this a.m., INR 1.0 patient has been off subcu heparin approximately 3 days. The patient continues on Versed and fentanyl infusions to maintain ventilator synchrony and avoidance of subclinical seizures which were noted on the EEG yesterday. The patient continues on multiple vasopressors to include norepinephrine and phenylephrine and vasopressin. Vasopressin currently being weaned off. The patient continues to have persistent leukocytosis though it is slightly downtrending plan for ID consult today appreciate recommendations. Bronchial washings resulted E. coli, currently patient continues on Zosyn. Patient was noted to have a positive fluid balance yesterday the patient received 20 mg of Lasix with adequate diuresis the patient noted to have a sodium level slightly decreased at 135 IV fluids mixed in 0.9 normal saline. 12/03: No acute events overnight lumbar puncture performed yesterday results pending. Dilantin level therapeutic. Phenobarbital level pending. Patient off vasopressin 24 hours. Phenylephrine currently being weaned off. Patient noted to be anemic 1 unit packed cells will be transfused today no pneumothorax chest tube now placed to waterseal today. 12/04: T-max 99.4. Repeat EEG performed today. Patient now withdrawing to pain 4 extremities, and open eyes to painful stimulus. Patient noted to move bilateral lower extremities 1 this shift. Patient tolerating tube feeds, overbreathing vent will begin CPAP trials in the a.m. if clinically stable. Phenylephrine completely discontinued overnight. Norepinephrine has been decreased to 3 mics/min. hemoglobin stable. 12/05: Afebrile. Patient was weaned off of norepinephrine last p.m.. The patient has been off sedation for greater than 48 hours, no change in neurological status opens eyes to deep stimulation, moves extremities 4 withdrawing to painful stimuli. CPAP trials initiated this a.m. the patient tolerated CPAP for approximately 6.5 hours. Chest x-ray remains unchanged no pneumo thorax, plan for removal of chest tube this evening. 12/06 No events overnight. On no sedation. Afebrile. unresponsive s/p removal chest tube yesterday.. 12/07 versed drip off since 12/04.. Eyes open to noxious stimuli, spontaneously moved R hand, withdraws x4. Temp max 99.3. WBC 11.2 today. Remains off pressors. On CPAP 05/23 and tolerating Subjective: 12/08. Temp max 100.4 overnight. Blood, urine, sputum cultures were sent. White blood cell count 13 this morning. Blood pressure was down to 84/46 with map of 56 this morning. Diuresed nearly 4 L yesterday with Lasix 40 IV q12, creatinine increased today. Tolerating tube feeds. Liquid stool x3 overnight. Apneic during multiple attempts at CPAP this morning. No neuro change. EEG bilateral slowing. Bihemispheric abnormalities. No epileptiform features Objective Vital Signs Date Time Temp Pulse Resp B/P (MAP) Pulse Ox O2 Delivery O2 Flow Rate FiO2 12/08/17 07:16 100 40 12/08/17 06:06 98 12/08/17 06:00 15 103/57 (72) 12/08/17 04:00 100.4 12/07/17 19:10 Mechanical Ventilator 12/06/17 19:12 2.00 Intake and Output 12/08/17 12/08/17 12/09/17 08:00 16:00 00:00 Output Total 2000 ml Balance -2000 ml Result Diagram: 12/08/1713 12/08/17612 Imaging Last Impressions Chest X-Ray 12/06/17 0600 Signed Impressions: Service Date/Time: Wednesday, December 06, 2017 04:52 - CONCLUSION: Improvement in the right consolidation. No change in left effusion and left consolidation. Charlie Gardner Jr., MD Gall Bladder Ultrasound 12/03/17 0000 Signed Impressions: Service Date/Time: Sunday, December 03, 2017 07:59 - CONCLUSION: 1. Ascites and bilateral pleural effusions. 2. Mildly distended gallbladder without evidence of wall thickening or cholelithiasis. 3. Otherwise unremarkable exam. Boo Cartwright MD Lumbar Puncture Fluoroscopy 12/02/17 0000 Signed Impressions: Service Date/Time: Saturday, December 02, 2017 15:28 - CONCLUSION: Uncomplicated fluoroscopically guided lumbar puncture. Aly Leigh MD Renal Ultrasound 11/29/17 1656 Signed Impressions: Service Date/Time: Wednesday, November 29, 2017 13:16 - CONCLUSION: 1. Both kidneys are sonographically normal without hydronephrosis or nephrolithiasis. 2. Very abnormal appearance of the gallbladder with mural thickening and minimal pericholecystic fluid Dani Titus MD Brain MRI 11/29/17 0000 Signed Impressions: Service Date/Time: Wednesday, November 29, 2017 13:27 - CONCLUSION: 1. Mild diffuse ventriculomegaly. Clinical correlation for normal pressure hydrocephalus is recommended. 2. [id number] periventricular small vessel ischemic white matter demyelination, out of proportion for age. Aly Leigh MD Head CT 11/28/17 0000 Signed Impressions: Service Date/Time: November 15:46 - CONCLUSION: 1. Ventriculomegaly suggesting central cerebral atrophy versus hydrocephalus. Clinical correlation is recommended. 2. No acute infarct, acute hemorrhage, midline shift or extra-axial fluid collections. Dev Christopher MD Procedures 12/02-planned lumbar puncture Objective Remarks GENERAL: 61-year-old female critically ill currently orotracheally intubated SKIN: Warm and dry. No rash HEAD: Atraumatic. Normocephalic. EYES: Gaze conjugate. Pupils equal and round about 4 mm and reactive to 2 mm bilaterally. No scleral icterus. No injection. Scleral edema improved. ENT: No nasal bleeding or discharge. Mucous membranes pink and moist NECK: Trachea midline. No JVD. CARDIOVASCULAR: RRR. . No murmur RESPIRATORY: 8.[address] CTAB Apneic when placed on CPAP 5. GASTROINTESTINAL: NGT L nare with tube feeds running. Abdomen soft, non-tender, nondistended. Bowel sounds present. MUSCULOSKELETAL: Edema improved, ~ 1+ of hands and ble. NEUROLOGICAL: Pupils reactive as per above + cough + gag. Eyes open to deep central noxious stimuli. Withdraws with all extremities. Some spontaneous movement was noted of her right hand 12/07 but none this morning. Date of Insertion: Nov 28, 2017 Line: Central Venous Catheter Side: Left Location: Internal, Jugular A/P Assessment and Plan Neuro/Psych: Acute encephalopathy secondary to diabetic ketoacidosis Anxiety disorder NOS Benzodiazepine use Off sedation since 12/04. Neurology Dr. Neville Acetaminophen 650 mg by tube every 6 hours as needed fever CT brain 11/28 revealed Ventriculomegaly suggesting central cerebral atrophy versus hydrocephalus. Clinical correlation is recommended. No acute infarct, acute hemorrhage, midline shift or extra-axial fluid collections. She is on amitriptyline 10 mg daily at home. This has been held UDS negative MRI brain 11/29 revealed mild to moderate ventriculomegaly. EEG - 12/07 bihemispheric slowing. No epileptiform features. EEG 11/28- bihemispheric slowing with some left frontocentral sharp waves and phase reversal suggesting an epileptiform abnormality and possible structural lesion in this region. No ictal pattern present. 11/30 levetiracetam 500 mg IV every 12 hours after 1 g bolus, Keppra discontinued 12/05 per neurology Neurology -Dr. Neville, on Phenobarb 65mg Q8 (level was 15 on 12/06), Cerebyx 200mg/PE Q12. Phenytoin level 9.7, Albumin corrected 22. Check phenobarb level 12/02 Ophthalmology -no eye infection Lacri-Lube applied for scleral edema 12/02-lumbar puncture-negative. CSF HSV negative 12/03-cortisol level 17 ammonia level 22 Continue to hold sedation. Consider repeat MRI. CV: History of hypertension Shock, resolved Elevated troponin Acute systolic heart failure ejection fraction 40% NSTEMI cardiomyopathy Monitor HR and BP keep MAP>65mmHg on atorvastatin 10 mg by tube daily Continue aspirin 81 mg by tube daily 2D echocardiogram revealed EF around 40%. LV increased size. Septal hypokinesis. 12/03- Cardiology has signed off Resp: Acute hypoxemic respiratory failure Hemoptysis-resolved Tobacco abuse/ongoing Iatrogenic PTX status post chest tube placement [facility] 16--> //08/23/39, Daily SBT. Tolerating CPAP 12/07, mental status prevents extubation at this time. Today, apneic during CPAP trials. Decreased resp rate to 12. Intubated 11/29 Mechanical ventilation day #10. Hold off a couple more days to see if she awakes off sedation, may need trach later this week. Called patients sister, Evelyn, to update her about this but there was no answer. Ventilator bundle Albuterol/ipratropium aerosols every 6 hours with albuterol aerosols every 2 hours as needed dyspnea 12/03 Right chest tube in placed to waterseal 11/29 Status post chest tube placement see documentation, removed 12/05. Status post bronchoscopy 11/29. CXR 12/07-bilateral pleural effusion, RLL opacity may be worse. F/u CXR GI: Moderate protein energy malnutrition Glucerna 1.5, change goal rate to 40 mL/h per nutrition recommendations. Change to famotidine for GI prophylaxis Docusate sodium/senna 1 tablet twice daily for bowel regimen 12/03 gallbladder ultrasound -gallbladder mildly distended without evidence of wall thickening or cholelithiasis. There is ascites and pleural effusions. Continue multivitamin/thiamine. change thiamine to via og FEN/RENAL: BRIELLE- resolved Hypernatremia Monitor renal function, I/O's, electrolytes replacement per protocol. Increase Free water 250ml Qq6 hours. Creatinine increased, edema down, hold lasix. Renal ultrasound revealed no medical renal disease. Endo: Insulin-dependent diabetes mellitus type 1 uncontrolled Diabetic ketoacidosis - resolved Originally, patient received 3 L normal saline in the ED along with 3 refills and bicarbonate, 1 ampule of calcium gluconate. Beta hydroxybutyrate cleared 11/29 Insulin pump was disconnected 11/28. According to sister Evelyn Obrien, patient had received a new insulin pump within the past 48 hours. She has no history of DKA in the past to her knowledge TSH 0.38 Continue SSI Novulog medium protocol with accucheck every 4 hours maintain euglycemia Glucose above, increase Levemir 7 q12 Heme: Leukocytosis- Resolved Macrocytic anemia Monitor CBC daily. Follow trends 12/03 transfused 1 unit of packed red blood cells ID: Community-acquired versus aspiration Persistent leukocytosis BC x2, UA (-) inf A/B negative 11/29 S/P bronchoscopy with sample sent from left lower lobe 11/29 Sputum (BAL)-E.coli, pansensitive ID is following, Dr. Mayorga On zosyn 12/03 #6. Vancomycin has been discontinued 12/06 per ID 12/02-lumbar puncture-negative Access PIV in place Left IJ CVL placed 11/29-12/07. Prophylaxis -GI -famotidine for stress ulcer prophylaxis ( shortage pantoprazole)nursing -DVT -SCD/continue heparin SQ Called patient's sister, Evelyn Gramajo, to update 12/08. No answer. RN states she hasn't visited in several days. Critical Care: Level 3 follow-up Nayeli Munoz MD Dec 08, 2017 08:05
[2017-12-08] MEDS: FAMOTIDINE 20 MG TAB NG SCH ×2 (08:37→20:46)
[2017-12-08] MEDS: FOSPHENYTOIN SODIUM 100 MG PE/2 ML VIAL IV SCH ×2 (08:37→21:37)
[2017-12-08] MEDS: ASPIRIN 81 MG CHEW TAB CHEW SCH (08:37)
[2017-12-08] MEDS: MULTIVITAMIN TAB PO SCH (08:38)
[2017-12-08] MEDS: CHLORHEXIDINE 0.12% (ORAL KIT) 15 ML CUP MT SCH ×2 (08:38→20:46)
[2017-12-08] MEDS: ARTIFICIAL TEARS OPTH OINT 3.5 APPLIC/3.5 GM TUBO EACH EYE SCH ×4 (08:38→20:46)
--- NOTE | 2017-12-08 08:38 | RADRPT ---
EXAM DATE/TIME: 12/08/2017 08:09 [place] COMPARISON: CHEST SINGLE AP, December 07, 2017, 0:48. INDICATIONS : Pneumonia, DKA. altered mental status MEDICAL HISTORY : Diabetes mellitus type I. SURGICAL HISTORY : None. ENCOUNTER: Subsequent ACUITY: 1 week PAIN SCORE: Non-responsive. LOCATION: Bilateral chest FINDINGS: A single AP erect portable view of the chest was obtained and again demonstrates endotracheal tube in place with tip approximately 3 cm above the kera. The nasogastric tube remains in place with the t ip in the stomach. hazy opacity remains in greatest both lung bases left greater than right. This is improved from the prior study. The left costophrenic angle appears blunted. The heart size remains wi thin normal notes. Tracheal calcifications are present. The bony thorax remains intact. Multiple over lying retrocardiac leads are present. The previous noted left internal jugular central venous line eduardo s been removed. CONCLUSION: 1. Interval removal of left internal jugular central venous line. 2. Mild improvement in pulmonary opacities. Shaquille Haley MD on December 08, 2017 at 8:33 Board Certified Radiologist. This report was verified electronically.
[2017-12-08] MEDS: INSULIN DETEMIR 100 UNITS/ML VIAL SQ SCH ×2 (08:45→20:47)
[2017-12-08] MEDS: THIAMINE HCL 100 MG TAB OG-TUBE SCH (08:47)
[2017-12-08] MEDS: SODIUM CHLORIDE 0.9% FLUSH 10 ML FLUSH IV FLUSH SCH ×3 (08:48→20:46)
[2017-12-08] MEDS: PIPERACIL-TAZO 3.375 GM PREMIX 50 ML IV SCH ×3 (11:36→23:52)
--- NOTE | 2017-12-08 14:24 | HHI.IDPN ---
Subjective Subjective Remarks ID FU DR FERRELL Unresponsive on ventilator Low grade fevers cxr clear +diarrhea stool sent Antibiotics ZOSYN Lines cvl discontinued piv in each arm Allergies: Coded Allergies: No Known Allergies (Unverified Allergy, Unknown, 11/28/17) Review of Systems Constitutional Constitutional Remarks NO FEVERS SEDATED ON VENT SUPPORT Objective . Vital Signs Date Time Temp Pulse Resp B/P (MAP) Pulse Ox O2 Delivery O2 Flow Rate FiO2 12/08/17 13:42 100 40 12/08/17 13:01 98 11 91/47 (62) 100 12/08/17 12:00 40 12/08/17 12:00 106 8 113/54 (73) 100 12/08/17 12:00 110 12/08/17 11:05 100 40 12/08/17 11:00 100 9 118/66 (83) 100 12/08/17 10:24 108 13 117/54 (75) 100 12/08/17 10:00 89 12/08/17 09:00 98 12 105/49 (67) 98 12/08/17 08:00 100.2 99 12 99/51 (67) 99 12/08/17 08:00 40 12/08/17 08:00 99 12/08/17 07:45 100 40 12/08/17 07:31 92 15 93/46 (62) 100 12/08/17 07:16 100 40 12/08/17 07:00 Mechanical Ventilator 40 12/08/17 06:06 98 12/08/17 06:00 98 15 103/57 (72) 100 12/08/17 06:00 98 15 103/57 (72) 100 12/08/17 05:00 98 15 84/46 (59) 100 12/08/17 04:22 100 40 12/08/17 04:06 40 12/08/17 04:04 98 12/08/17 04:00 100.4 104 16 102/52 (69) 100 12/08/17 03:31 96 16 94/46 (62) 100 12/08/17 02:19 101 12/08/17 02:00 102 16 95/51 (66) 100 12/08/17 01:31 100 40 12/08/17 01:00 108 15 100/48 (65) 100 12/08/17 00:32 106 12/08/17 00:00 40 12/08/17 00:00 110 15 96/52 (67) 100 12/07/17 23:00 99.6 106 15 97/52 (67) 100 12/07/17 22:08 99 40 12/07/17 22:02 102 12/07/17 22:00 102 15 89/47 (61) 98 12/07/17 21:00 106 23 133/64 (87) 100 12/07/17 20:00 112 12/07/17 20:00 100 16 106/51 (69) 100 12/07/17 20:00 40 12/07/17 19:15 99 40 12/07/17 19:10 100 Mechanical Ventilator 40 12/07/17 19:00 100.3 108 16 109/55 (73) 99 12/07/17 18:00 98 12/07/17 18:00 102 15 111/54 (73) 100 12/07/17 17:00 92 16 97/48 (64) 100 12/07/17 17:00 92 16 97/48 (64) 100 12/07/17 16:00 98.7 100 15 108/53 (71) 100 12/07/17 16:00 40 12/07/17 16:00 100 15 108/53 (71) 100 12/07/17 16:00 99 12/07/17 15:05 100 40 12/07/17 15:00 100 18 115/65 (82) 100 12/07/17 14:52 92 16 98/53 (68) 100 12/08/17 12/08/17 12/09/17 14:59 22:59 06:59 Output Total 500 ml Balance -500 ml Output Urine Total 500 ml . Laboratory Tests Test 12/07/17 05:15 12/08/17 06:13 White Blood Count 11.2 TH/MM3 13.0 TH/MM3 Red Blood Count 3.30 MIL/MM3 2.88 MIL/MM3 Hemoglobin 10.1 GM/DL 9.1 GM/DL Hematocrit 31.2 % 27.8 % Mean Corpuscular Volume 94.6 FL 96.2 FL Mean Corpuscular Hemoglobin 30.8 PG 31.4 PG Mean Corpuscular Hemoglobin Concent 32.5 % 32.6 % Red Cell Distribution Width 13.9 % 13.9 % Platelet Count 386 TH/MM3 446 TH/MM3 Mean Platelet Volume 7.3 FL 8.2 FL Neutrophils (%) (Auto) 73.1 % 72.8 % Lymphocytes (%) (Auto) 13.4 % 17.2 % Monocytes (%) (Auto) 11.9 % 8.0 % Eosinophils (%) (Auto) 1.2 % 1.3 % Basophils (%) (Auto) 0.4 % 0.7 % Neutrophils # (Auto) 8.3 TH/MM3 9.5 TH/MM3 Lymphocytes # (Auto) 1.5 TH/MM3 2.2 TH/MM3 Monocytes # (Auto) 1.3 TH/MM3 1.0 TH/MM3 Eosinophils # (Auto) 0.1 TH/MM3 0.2 TH/MM3 Basophils # (Auto) 0.0 TH/MM3 0.1 TH/MM3 CBC Comment DIFF FINAL DIFF FINAL Differential Comment Laboratory Tests Test 12/07/17 05:15 12/08/17 06:13 Blood Urea Nitrogen 16 MG/DL 21 MG/DL Creatinine 0.84 MG/DL 1.20 MG/DL Random Glucose 164 MG/DL 158 MG/DL Total Protein 5.2 GM/DL 5.2 GM/DL Albumin 1.7 GM/DL 1.7 GM/DL Calcium Level 7.9 MG/DL 8.0 MG/DL Phosphorus Level 3.4 MG/DL Magnesium Level 2.4 MG/DL Alkaline Phosphatase 143 U/L 161 U/L Aspartate Amino Transf (AST/SGOT) 70 U/L 73 U/L Alanine Aminotransferase (ALT/SGPT) 36 U/L 44 U/L Total Bilirubin 0.1 MG/DL 0.1 MG/DL Sodium Level 150 MEQ/L 150 MEQ/L Potassium Level 3.6 MEQ/L 4.1 MEQ/L Chloride Level 114 MEQ/L 114 MEQ/L Carbon Dioxide Level 31.0 MEQ/L 30.4 MEQ/L Anion Gap 5 MEQ/L 6 MEQ/L Estimat Glomerular Filtration Rate 68 ML/MIN 45 ML/MIN Microbiology Date/Time Source Procedure Growth Status 12/08/17 06:13 Blood Peripheral Aerobic Blood Culture Pending Received 12/08/17 06:13 Blood Peripheral Anaerobic Blood Culture Pending Received 12/08/17 06:05 Blood Peripheral Aerobic Blood Culture Pending Received 12/08/17 06:05 Blood Peripheral Anaerobic Blood Culture Pending Received 12/08/17 06:00 Sputum Nasal Tracheal Aspirate Gram Stain Pending Received 12/08/17 06:00 Sputum Nasal Tracheal Aspirate Sputum Culture Pending Received 12/08/17 06:09 Urine Catheterized Urine Urine Culture Pending Received Physical Exam SEDATED ON VENT ORALLY INTUBATED +LEFT IJ.Orogastric tube CHEST : LUNGS ARE COARSE DIMINISHED IN BASES CARDIAC: RRR ABD: SOFT ACTIVE, bowel sounds heard EXT + EDEMA Assessment & Plan Diagnosis: (1) DKA (diabetic ketoacidoses) ICD Codes: E13.10 - Other specified diabetes mellitus with ketoacidosis without coma Status: Acute (2) Type 1 diabetes ICD Codes: E10.9 - Type 1 diabetes mellitus without complications Status: Acute (3) Respiratory failure ICD Codes: J96.90 - Respiratory failure, unspecified, unspecified whether with hypoxia or hypercapnia Status: Acute (4) Seizure cerebral ICD Codes: I67.89 - Other cerebrovascular disease Status: Acute (5) Encephalopathy, metabolic ICD Codes: G93.41 - Metabolic encephalopathy Status: Acute Plan: ON / ZOSYN add flagyl with florsastor CULTURES NEGATIVE WILL FU Problem Qualifiers (1) DKA (diabetic ketoacidoses): Qualified Codes: E10.11 - Type 1 diabetes mellitus with ketoacidosis with coma Sveta Duran Dec 08, 2017 14:24
[2017-12-08] MEDS: ATORVASTATIN 10 MG TAB PO SCH (20:47)
[2017-12-08] MEDS: ACETAMINOPHEN 650 MG/20.3 ML UDC NG PRN (23:52)
[2017-12-09] VITALS (38 sets, daily range): BP systolic 91–120; BP diastolic 47–66; PULSE 82–106; RESP 11–23; TEMP 98.4–100.8; O2SAT 98–100
[2017-12-09] MEDS: HEPARIN SODIUM - SQ 10,000 UNITS/ML VIAL SQ SCH ×3 (02:11→18:32)
[2017-12-09] MEDS: FREE WATER G-TUBE SCH ×4 (03:00→21:00)
[2017-12-09] MEDS: RESP: ALBUTEROL 2.5 MG/IPRATROPIUM 0.5 MG NEB (SCH) NEB ×4 (03:08→21:13)
[2017-12-09] MEDS: CHLORHEXIDINE GLUCONATE 2 % 1 PACK (2 CLOTHS) TOP SCH (04:00)
[2017-12-09] MEDS: INSULIN ASPART SUPPLEMENTAL SCALE SQ SCH ×5 (04:30→21:03)
[2017-12-09] MEDS: PIPERACIL-TAZO 3.375 GM PREMIX 50 ML IV SCH ×4 (04:32→22:41)
[2017-12-09 05:01] LABS: BICARBONATE 30.8 MEQ/L (21.0-32.0)
[2017-12-09 05:05] LABS: CREATININE 1.2 MG/DL (0.50-1.00)
[2017-12-09 05:07] LABS: AUTOMATED NEUTROPHIL # 7.6 TH/MM3 (1.8-7.7); BASOPHIL # 0.1 TH/MM3 (0-0.2); BASOPHIL % 0.6 % (0.0-2.0); EOSINOPHIL # 0.2 TH/MM3 (0-0.4); EOSINOPHIL % 2.1 % (0.0-4.0); HEMATOCRIT 27.9 % (35.0-46.0); HEMOGLOBIN 8.9 GM/DL (11.6-15.3); LYMPH % 17.5 % (9.0-44.0); LYMPHOCYTE # 1.9 TH/MM3 (1.0-4.8); MEAN CELL VOLUME 97.2 FL (80.0-100.0); MEAN CORPUSCULAR HGB CONC 31.9 % (32.0-36.0); MEAN PLATELET VOLUME 8.3 FL (7.0-11.0); MONO % 7.5 % (0.0-8.0); MONOCYTE # 0.8 TH/MM3 (0-0.9); NEUT % 72.3 % (16.0-70.0); PLATELET COUNT 448 TH/MM3 (150-450); RED BLOOD COUNT 2.87 MIL/MM3 (4.00-5.30); RED CELL DISTRIBUTION WIDTH 14.1 % (11.6-17.2); WHITE BLOOD COUNT 10.6 TH/MM3 (4.0-11.0)
[2017-12-09 05:09] LABS: PHENYTOIN (DILANTIN) 8.7 MCG/ML (10.0-20.0)
[2017-12-09] MEDS: SODIUM CHLORIDE 0.9% FLUSH 10 ML FLUSH IV FLUSH SCH ×3 (09:00→21:07)
[2017-12-09] MEDS: THIAMINE HCL 100 MG TAB OG-TUBE SCH (09:00)
[2017-12-09] MEDS: CHLORHEXIDINE 0.12% (ORAL KIT) 15 ML CUP MT SCH ×2 (09:23→20:00)
[2017-12-09] MEDS: INSULIN DETEMIR 100 UNITS/ML VIAL SQ SCH ×2 (09:23→21:06)
[2017-12-09] MEDS: FAMOTIDINE 20 MG TAB NG SCH ×2 (09:24→21:06)
[2017-12-09] MEDS: MULTIVITAMIN TAB PO SCH (09:24)
[2017-12-09] MEDS: ACETAMINOPHEN 650 MG/20.3 ML UDC NG PRN (09:24)
[2017-12-09] MEDS: ASPIRIN 81 MG CHEW TAB CHEW SCH (09:25)
[2017-12-09] MEDS: ARTIFICIAL TEARS OPTH OINT 3.5 APPLIC/3.5 GM TUBO EACH EYE SCH ×4 (09:26→21:03)
[2017-12-09] MEDS: FOSPHENYTOIN SODIUM 100 MG PE/2 ML VIAL IV SCH ×2 (09:28→21:05)
--- NOTE | 2017-12-09 09:57 | HHI.CCPN ---
Subjective Remarks/Hospital Course This is a 51-year-old female. Date of admission 11/28/2017. Past medical history includes diabetes mellitus type 1 uncontrolled insulin- dependent with retinopathy on home insulin pump, hypertension, allergic rhinitis and chronic benzodiazepine use. She also has history of breast cancer on raloxifene she originally presented to [facility] ED During the workup, patient was noted to have a blood sugar of 808. Elevated acetone. Sodium 135. Potassium 6.0. Ferritin 2.1. Leukocytosis 25,000. Macrocytic anemia. UA negative for infectious etiology. She was bolused with 3 L of 0.9% NaCl IV fluid bolus. She is received 3 ampules of sodium bicarbonate and 1 g calcium gluconate. Chest x-ray post procedure revealed the CT scan of the head is read by the radiologist as ventriculomegaly but otherwise no acute findings. 11/29: Patient had nonrebreather off all night. PTX now 8 mm. Yells "Help me " "I don't know" Gap has closed, will transition back to SQ insulin if able to pass swallow. Replacing lytes. 11/30: Patient opens eyes to voice. Leftward gaze. Frequent blinking. Withdraws to stimulation bilateral lower extremities. T-max 99.5. Remains on norepinephrine and phenylephrine drips. MRI brain revealed ventriculomegaly. No acute signs of CVA. Echocardiogram EF 40%. 12/01: Afebrile. Patient remains off sedation approximately 24 hours nonresponsive. EEG in process. BAL revealed gram-negative rods the patient continues on Zosyn. The patient remains on vasopressors norepinephrine, vasopressin, and phenylephrine. Versed infusion restarted secondary to seizure activity noted on repeat EEG this a.m.. 12/02: Afebrile. The patient is scheduled for lumbar puncture this a.m., INR 1.0 patient has been off subcu heparin approximately 3 days. The patient continues on Versed and fentanyl infusions to maintain ventilator synchrony and avoidance of subclinical seizures which were noted on the EEG yesterday. The patient continues on multiple vasopressors to include norepinephrine and phenylephrine and vasopressin. Vasopressin currently being weaned off. The patient continues to have persistent leukocytosis though it is slightly downtrending plan for ID consult today appreciate recommendations. Bronchial washings resulted E. coli, currently patient continues on Zosyn. Patient was noted to have a positive fluid balance yesterday the patient received 20 mg of Lasix with adequate diuresis the patient noted to have a sodium level slightly decreased at 135 IV fluids mixed in 0.9 normal saline. 12/03: No acute events overnight lumbar puncture performed yesterday results pending. Dilantin level therapeutic. Phenobarbital level pending. Patient off vasopressin 24 hours. Phenylephrine currently being weaned off. Patient noted to be anemic 1 unit packed cells will be transfused today no pneumothorax chest tube now placed to waterseal today. 12/04: T-max 99.4. Repeat EEG performed today. Patient now withdrawing to pain 4 extremities, and open eyes to painful stimulus. Patient noted to move bilateral lower extremities 1 this shift. Patient tolerating tube feeds, overbreathing vent will begin CPAP trials in the a.m. if clinically stable. Phenylephrine completely discontinued overnight. Norepinephrine has been decreased to 3 mics/min. hemoglobin stable. 12/05: Afebrile. Patient was weaned off of norepinephrine last p.m.. The patient has been off sedation for greater than 48 hours, no change in neurological status opens eyes to deep stimulation, moves extremities 4 withdrawing to painful stimuli. CPAP trials initiated this a.m. the patient tolerated CPAP for approximately 6.5 hours. Chest x-ray remains unchanged no pneumo thorax, plan for removal of chest tube this evening. 12/06 No events overnight. On no sedation. Afebrile. unresponsive s/p removal chest tube yesterday.. 12/07 versed drip off since 12/04.. Eyes open to noxious stimuli, spontaneously moved R hand, withdraws x4. Temp max 99.3. WBC 11.2 today. Remains off pressors. On CPAP 05/23 and tolerating Subjective: 12/08. Temp max 100.4 overnight. Blood, urine, sputum cultures were sent. White blood cell count 13 this morning. Blood pressure was down to 84/46 with map of 56 this morning. Diuresed nearly 4 L yesterday with Lasix 40 IV q12, creatinine increased today. Tolerating tube feeds. Liquid stool x3 overnight. Apneic during multiple attempts at CPAP this morning. No neuro change. EEG bilateral slowing. Bihemispheric abnormalities. No epileptiform features 12/09: Remains encephalopathic, orally intubated on mechanical ventilation. Tolerating tube feeds. Not on any sedation. Objective Vital Signs Date Time Temp Pulse Resp B/P (MAP) Pulse Ox O2 Delivery O2 Flow Rate FiO2 12/09/17 07:54 100 40 12/09/17 06:14 96 12/09/17 06:01 14 107/58 (74) 12/09/17 04:01 98.4 12/08/17 19:12 Mechanical Ventilator 2.00 Intake and Output 12/09/17 12/09/17 12/10/17 08:00 16:00 00:00 Output Total 800 ml Balance -800 ml Result Diagram: 12/09/17 0420 12/09/17 0420 Imaging Last Impressions Chest X-Ray 12/06/17 0600 Signed Impressions: Service Date/Time: Wednesday, December 06, 2017 04:52 - CONCLUSION: Improvement in the right consolidation. No change in left effusion and left consolidation. Charlie Gardner Jr., MD Gall Bladder Ultrasound 12/03/17 0000 Signed Impressions: Service Date/Time: Sunday, December 03, 2017 07:59 - CONCLUSION: 1. Ascites and bilateral pleural effusions. 2. Mildly distended gallbladder without evidence of wall thickening or cholelithiasis. 3. Otherwise unremarkable exam. Boo Cartwright MD Lumbar Puncture Fluoroscopy 12/02/17 0000 Signed Impressions: Service Date/Time: Saturday, December 02, 2017 15:28 - CONCLUSION: Uncomplicated fluoroscopically guided lumbar puncture. Aly Leigh MD Renal Ultrasound 11/29/17 1656 Signed Impressions: Service Date/Time: Wednesday, November 29, 2017 13:16 - CONCLUSION: 1. Both kidneys are sonographically normal without hydronephrosis or nephrolithiasis. 2. Very abnormal appearance of the gallbladder with mural thickening and minimal pericholecystic fluid Dani Titus MD Brain MRI 11/29/17 0000 Signed Impressions: Service Date/Time: Wednesday, November 29, 2017 13:27 - CONCLUSION: 1. Mild diffuse ventriculomegaly. Clinical correlation for normal pressure hydrocephalus is recommended. 2. [id number] periventricular small vessel ischemic white matter demyelination, out of proportion for age. Aly Leigh MD Head CT 11/28/17 0000 Signed Impressions: Service Date/Time: November 15:46 - CONCLUSION: 1. Ventriculomegaly suggesting central cerebral atrophy versus hydrocephalus. Clinical correlation is recommended. 2. No acute infarct, acute hemorrhage, midline shift or extra-axial fluid collections. Dev Christopher MD Procedures 12/02-planned lumbar puncture Objective Remarks GENERAL: 61-year-old female critically ill currently orotracheally intubated SKIN: Warm and dry. No rash HEAD: Atraumatic. Normocephalic. EYES: Gaze conjugate. Pupils equal and round about 4 mm and reactive to 2 mm bilaterally. No scleral icterus. No injection. Scleral edema improved. ENT: No nasal bleeding or discharge. Mucous membranes pink and moist NECK: Trachea midline. No JVD. CARDIOVASCULAR: RRR. . No murmur RESPIRATORY: Orally intubated on mechanical ventilation, good air entry bilaterally, no wheezing or crackles GASTROINTESTINAL: NGT L nare with tube feeds running. Abdomen soft, non-tender, nondistended. Bowel sounds present. MUSCULOSKELETAL: Edema improved, ~ 1+ of hands and ble. NEUROLOGICAL: Pupils reactive as per above + cough + gag. Eyes open to deep central noxious stimuli. Withdraws with all extremities. Date of Insertion: Nov 28, 2017 Line: Central Venous Catheter Side: Left Location: Internal, Jugular A/P Assessment and Plan Neuro/Psych: Acute encephalopathy secondary to diabetic ketoacidosis Anxiety disorder NOS Benzodiazepine use Off sedation since 12/04. Neurology Dr. Neville Acetaminophen 650 mg by tube every 6 hours as needed fever CT brain 11/28 revealed Ventriculomegaly suggesting central cerebral atrophy versus hydrocephalus. Clinical correlation is recommended. No acute infarct, acute hemorrhage, midline shift or extra-axial fluid collections. She is on amitriptyline 10 mg daily at home. This has been held UDS negative MRI brain 11/29 revealed mild to moderate ventriculomegaly. EEG - 12/07 bihemispheric slowing. No epileptiform features. EEG 11/28- bihemispheric slowing with some left frontocentral sharp waves and phase reversal suggesting an epileptiform abnormality and possible structural lesion in this region. No ictal pattern present. 11/30 levetiracetam 500 mg IV every 12 hours after 1 g bolus, Keppra discontinued 12/05 per neurology Neurology -Dr. Neville, on Phenobarb 65mg Q8 (level was 15 on 12/06), Cerebyx 200mg/PE Q12. Phenytoin level 9.7, Albumin corrected 22. Check phenobarb level 12/02 Ophthalmology -no eye infection Lacri-Lube applied for scleral edema 12/02-lumbar puncture-negative. CSF HSV negative 12/03-cortisol level 17 ammonia level 22 Continue to hold sedation. Consider repeat MRI. CV: History of hypertension Shock, resolved Elevated troponin Acute systolic heart failure ejection fraction 40% NSTEMI cardiomyopathy Monitor HR and BP keep MAP>65mmHg on atorvastatin 10 mg by tube daily Continue aspirin 81 mg by tube daily 2D echocardiogram revealed EF around 40%. LV increased size. Septal hypokinesis. 12/03- Cardiology has signed off Resp: Acute hypoxemic respiratory failure Hemoptysis-resolved Tobacco abuse/ongoing Iatrogenic PTX status post chest tube placement [facility] 16--> //08/23/39, Daily SBT. Tolerating CPAP 12/07, mental status prevents extubation at this time. Today, apneic during CPAP trials. Decreased resp rate to 12. Intubated 11/29 Mechanical ventilation day #11. Hold off a couple more days to see if she awakes off sedation, may need trach later this week. Dr. Munoz called patients sister, Evelyn, to update her about this but there was no answer. Ventilator bundle Albuterol/ipratropium aerosols every 6 hours with albuterol aerosols every 2 hours as needed dyspnea 12/03 Right chest tube in placed to waterseal 11/29 Status post chest tube placement see documentation, removed 12/05. Status post bronchoscopy 11/29. CXR 12/07-bilateral pleural effusion, RLL opacity may be worse. F/u CXR GI: Moderate protein energy malnutrition Glucerna 1.5, change goal rate to 40 mL/h per nutrition recommendations. Change to famotidine for GI prophylaxis Docusate sodium/senna 1 tablet twice daily for bowel regimen 12/03 gallbladder ultrasound -gallbladder mildly distended without evidence of wall thickening or cholelithiasis. There is ascites and pleural effusions. Continue multivitamin/thiamine. change thiamine to via og FEN/RENAL: BRIELLE- resolved Hypernatremia Monitor renal function, I/O's, electrolytes replacement per protocol. Free water 250ml Qq6 hours. Creatinine increased, edema down, hold lasix. Renal ultrasound revealed no medical renal disease. Endo: Insulin-dependent diabetes mellitus type 1 uncontrolled Diabetic ketoacidosis - resolved Originally, patient received 3 L normal saline in the ED along with 3 refills and bicarbonate, 1 ampule of calcium gluconate. Beta hydroxybutyrate cleared 11/29 Insulin pump was disconnected 11/28. According to sister Evelyn Obrien, patient had received a new insulin pump within the past 48 hours. She has no history of DKA in the past to her knowledge TSH 0.38 Continue SSI Novulog medium protocol with accucheck every 4 hours maintain euglycemia Levemir 7 q12 Heme: Leukocytosis- Resolved Macrocytic anemia Monitor CBC daily. Follow trends 12/03 transfused 1 unit of packed red blood cells ID: Community-acquired versus aspiration Persistent leukocytosis BC x2, UA (-) inf A/B negative 11/29 S/P bronchoscopy with sample sent from left lower lobe 11/29 Sputum (BAL)-E.coli, pansensitive ID is following, Dr. Mayorga On zosyn 12/03. Vancomycin has been discontinued 12/06 per ID 12/02-lumbar puncture-negative Access PIV in place Left IJ CVL placed 11/29-12/07. Prophylaxis -GI -famotidine for stress ulcer prophylaxis ( shortage pantoprazole)nursing -DVT -SCD/continue heparin SQ Dr. Munoz called patient's sister, Evelyn Gramajo, to update 12/08. No answer. RN states she hasn't visited in several days. We will consult palliative care to assist with deciding goals of therapy as patient appears to have significant encephalopathy, possibly anoxic brain injury. Condition remains critical. Time spent on critical care excluding procedures 30 minutes. Reji Rosenberg MD Dec 09, 2017 09:57
--- NOTE | 2017-12-09 11:17 | PD.CONS ---
Consult Service Palliative Care Consult Requested By Dr Viviana Rosenberg Primary Care Physician Zunilda Dwyer M.D. Reason for Consultation a. To assist with evaluation and management of symptoms including: dyspnea, encephalopathy. b. To assist medical decision maker(s) with: better understanding of current medical conditions; weighing benefits/burdens of medical treatment options; making medical treatment decisions. (KalliKaren) HPI History of Present Illness This 61-year-old patient presented to the ED on 11/28/17, reported to be found unresponsive with altered mental status. She was last seen normal by her boyfriend after he dropped her off in the evening. She did mention to her boyfriend and insulin pump put in recently but did not think was working. He did not hear back from her that day so sent someone to check on her and she was found unresponsive. She was brought in via EMS. * ED course:+ "Leukocytosis WBC 25, blood sugar greater than 800, she was started on DKA protocol with 10 units of insulin bolus. She also received IV fluids. Noted to be in acute renal failure: Potassium 6.0, BUN 49/creatinine 2.10. GFR 24. She was treated with bicarb, calcium gluconate. Troponin 0 0.04. Urine drug screen negative. Potenza of systolic BP 80s-90s. Central line placed in the ED. CT brain with ventriculomegaly but otherwise no acute findings. CXR= no acute process, 8 mm nodule overlying right base and location is most likely represents nipple shadow however consider repeat. She is admitted to the ICU for further evaluation and management. * Patient on and off of BiPAP. Was intubated 11/29/17 emergently for acute respiratory failure. Chest tube also placed for iatrogenic pneumothorax. Therapeutic and diagnostic bronchoscopy also completed for hemoptysis. No masses identified mucosa appeared normal. Specimens sent for microscopy. Central line placed left IJ. * 11/29 2D echo left ventricular size upper normal to mildly increased. Wall thickness normal. Appears to be severe septal hypokinesis. EF difficult to estimate possibly 40%. Estimated PA pressure 43 * Cardiology consulted 11/29: Elevation of troponin most consistent with non-ST elevation WA. Suspected secondary to renal insufficiency with creatinine of 2 on arrival. She also had some transient hypertension and tachycardia and during the same time she was hypoxic being intubated. Not a revascularization candidate. Continue conservative management. Not a beta-demetra candidate. She is on multiple pressors. Check lipids, possible statin. * Neurology consulted 11/30: She was noted to have gaze deviation and possible seizure activity. She had been started on Keppra, also on propofol for sedation. MRI brain= mild ventriculomegaly, white matter changes in the bisi subcortical region. Possibly in gyral regions, no acute infarct. Neurology started patient on IV Cerebyx, EEG pending, continue Keppra. Will follow. * 11/30 patient again with hemoptysis, repeat bronchoscopy; patient noted with active bleeding right middle lower lobe treated with sodium bicarbonate per critical care during bronchoscopy. * 12/01 patient also sedation approximately 24 hours, nonresponsive. BAL= gram- negative rods, continued on Zosyn. On multiple pressors norepinephrine, vasopressin, phenylephrine per Versed was started for seizure activity noted on repeat EEG. Critical care notes ongoing updates to Sister Evelyn Obrien. * 12/02 neurology continues to follow, EEG with frontal sharps likely metabolic seizures. Requests LP to check CSF. Persistent leukocytosis though downtrending some. ID consulted. Some drainage from eyes right greater than left, ophthalmology consulted. * Ophthalmology evaluated patient 12/03--patient with conjunctival edema bilaterally however no infection present on exam. Orders generous Lacri-Lube ointm * 12/03 gallbladder ultrasound -gallbladder mildly distended without evidence of wall thickening or cholelithiasis. There is ascites and pleural effusions * ID following; patient on acyclovir, vancomycin, Zosyn. remains sedated on mechanical vent. Remains on pressors. CSF negative. Cultures negative. HSV PCR negative * Neurology recommends DC acyclovir, DC Keppra, continue Dilantin, phenobarbital. prognosis guarded. * Weaning pressors. Off of sedation greater than 48 hours, opens eyes to deep stimuli moves extremities x4 withdrawing to painful stimuli. CPAP trials. Chest tube to be removed. * 12/06 continued on Zosyn, IV vancomycin stopped per ID. * 12/06 1 repeat EEG abnormal bilateral slowing. Findings suggest bihemispheric abnormalities difficult to differentiate worse hemisphere on base of EEG. No epileptiform features. * Febrile, repeat cultures pending. Hypotensive 80s systolic. Creatinine increasing. Having loose stools. Tolerating tube feeding. Apneic during CPAP trials. * 12/09. Remains encephalopathic. Concern for possible anoxic brain injury. Remains on mechanical vent. Palliative care consulted to assist with clarification of goals of treatment. Discussed with nurse, critical care. Patient seen in room, significant other León at bedside. Patient is not on sedation. She is minimally responsive to my exam. Brief discussion with significant other regarding purpose of my consultation, additional psychosocial , medical history. Discussed with like to arrange a family meeting with patient 's sister, and whomever else may be participating in her care and decisions. He indicates her son Jamin lives in [place] however is planning possibly in coming down this week. He is not certain if the patient has advanced directives or living will or healthcare surrogate designation. Briefly review with him [place] statutes regarding decision-makers. Significant other indicates patient had been feeling well and her usual self up until acute event when she was found altered. He had dropped her off at home the evening before after spending the evening with her, and the next morning when he tried calling her which was usual for them she did not answer. By midday noon he became concerned about this as this was not usual for her, and when he arrived to her residence she was on the ground inside and altered. He reports no shortness of breath no GI complaints, no other complaints other than apparently had insulin pump implanted 2 days before presentation and he tells me that they believe this actually was not functioning and did not provide her any insulin. Following my exam attempted to reach sister Evelyn Busby, voicemail left. I also left significant other with my contact information, requested they contact me when they can be available for family meeting to discuss treatment options and decisions going forward. 1500 UPDATE--received call back from his sister. She is very hoarse difficult to hear her over the phone. She indicates she has been staying away due to illness which she is improving from. Briefly review with her palliative consultation, purpose of visit, patient general condition and possible decisions to be made going forward given patient still critically ill. Review [place] statutes and appropriate legal decision makers. She does not believe patient has advanced directives in which case legal decision making would fall to her son Prince. She indicates he will be coming in town from [place] he is currently working on travel arrangements so she is not certain of exactly when he will be here. She has been unable to come in person secondary to her current illness. Advised we will need to make plans going forward for treatment decisions as patient unable to wean off ventilator. She will be in touch with son and advise palliative when they are all able to meet. Advised if son is not able to travel here by the end of the week then we can certainly meet with her in person when she is able, and perhaps get him on the phone. She is amenable to this. Further goals to be addressed once family is able to discuss further either in person or via conference call. Function/Cognitive Trajectory Previously lived at home in an apartment independent with all ADLs no cognitive or functional deficits. (Karen Mahan) Review of Systems ROS Limitations: Clinical Condition, Altered Mental Status (On mechanical vent , nonresponsive limited history per significant other and ED presentation) Psychiatric: COMPLAINS OF: Anxiety, Confusion (Karen Mahan) Past Family Social History Coded Allergies: No Known Allergies (Unverified Allergy, Unknown, 11/28/17) Past Medical History Type 1 diabetes -recent insulin pump Breast cancer-on raloxifene Hypertension Anxiety Retinopathy Past Surgical History Insulin pump placement a few days prior to admission Right cataract surgery Dental implants Finger surgery 2016 . Reported Medications Fluticasone Nasal [place] 50 Mcg/Act Naspr 50 Mcg EACH NARE BID 50 mcg/spray Estrace Vaginal (Estradiol) 0.01% Cream 42.5 Gm VAGINAL HS Irbesartan 150 Mg Tab 150 Mg PO DAILY Multi-Vitamin Daily (Multiple Vitamin) 1 Tab Tab 1 Tab PO DAILY Novolog Inj (Insulin Aspart) 1,000 Unit/10 Ml Vial 0 SQ DIRECTED INSULIN PUMP; SLIDING SCALE Amitriptyline (Amitriptyline HCl) 10 Mg Tab 10 Mg PO HS Raloxifene (Raloxifene HCl) 60 Mg Tab 60 Mg PO DAILY . Current Medications Medications (Trade) Dose Ordered Sig/Kenna Route Start Time Stop Time Status Last Admin (NS Flush) 2 ml UNSCH PRN IV FLUSH 11/28/17 16:00 (NS Flush) 2 ml BID IV FLUSH 11/28/17 21:00 12/09/17 09:26 (Albuterol Neb) 2.5 mg Q2HR NEB PRN INH 11/28/17 16:00 12/06/17 04:42 (Chlorhexidine 2% Cloth) 3 pack UNSCH PRN TOP 11/28/17 16:00 Future Hold (Milk Of Magnesia Liq) 30 ml Q12H PRN PO 11/28/17 16:00 (Senokot) 17.2 mg Q12H PRN PO 11/28/17 16:00 (Dulcolax Supp) 10 mg DAILY PRN RECTAL 11/28/17 16:00 (Lactulose Liq) 30 ml DAILY PRN PO 11/28/17 16:00 (Zofran Inj) 4 mg Q6H PRN IV PUSH 11/28/17 16:15 (Heparin Inj) 5,000 units Q8H SQ 11/28/17 18:00 Future hold 12/09/17 09:25 Miscellaneous Information 1 Q361D XX 11/28/17 16:15 11/28/17 16:15 (Chlorhexidine 2% Cloth) Taper DAILY@04 TOP 11/29/17 04:00 11/25/18 03:59 12/09/17 04:00 (Chlorhexidine 2% Cloth) 3 pack UNSCH PRN TOP 11/28/17 16:15 (Flonase Willem Spr) 1 spray BID EACH NARE 11/28/17 21:00 Future Hold (Theragran) 1 tab DAILY PO 11/29/17 09:00 12/09/17 09:24 (D50w (Vial) Inj) 50 ml UNSCH PRN IV PUSH 11/29/17 07:15 11/30/17 07:11 (Glucagon Inj) 1 mg UNSCH PRN OTHER 11/29/17 07:15 (Levemir Inj) 8 units BID SQ 11/29/17 09:00 Future Hold 11/29/17 22:11 Potassium Chloride 100 ml @ 50 mls/hr Q2H PRN IV 11/29/17 07:15 Potassium Chloride 100 ml @ 50 mls/hr Q2H PRN IV 11/29/17 07:15 (K-Lyte Cl Eff) 50 meq UNSCH PRN PO 11/29/17 07:15 Potassium Chloride 100 ml @ 25 mls/hr UNSCH PRN IV 11/29/17 07:15 Potassium Chloride 100 ml @ 50 mls/hr Q2H PRN IV 11/29/17 07:15 Magnesium Sulfate 4 gm/Sodium Chloride 100 ml @ 50 mls/hr UNSCH PRN IV 11/29/17 07:15 (Mag-Ox) 800 mg UNSCH PRN PO 11/29/17 07:15 Magnesium Sulfate 2 gm/Sodium Chloride 100 ml @ 50 mls/hr UNSCH PRN IV 11/29/17 07:15 (K-Phos) 2,000 mg Q4H PRN PO 11/29/17 07:15 Sodium Phosphate 30 mmol/Sodium Chloride 250 ml @ 42 mls/hr UNSCH PRN IV 11/29/17 07:15 11/30/17 05:30 (K-Phos) 2,000 mg UNSCH PRN PO/TUBE 11/29/17 07:15 Potassium Phosphate 30 mmol/ Sodium Chloride 260 ml @ 42 mls/hr UNSCH PRN IV 11/29/17 07:15 12/01/17 12:05 (Peridex 0.12% Liq) 15 ml BID@08,20 MT 11/29/17 08:00 12/09/17 09:23 (Tylenol 650 Mg/ 20 ml Liq) 650 mg Q6H PRN NG 11/29/17 10:00 12/09/17 09:24 (Brethine Inj) 1 mg UNSCH PRN SQ 11/29/17 10:00 (NovoLOG SUPPLEMENTAL SCALE) 1 Q4HR SQ 11/29/17 12:00 12/09/17 09:23 (NS Flush) DAILY IV FLUSH 11/30/17 09:00 12/07/17 09:00 (NS Flush) UNSCH PRN IV FLUSH 11/29/17 11:15 (Aspirin Chew) 81 mg DAILY CHEW 11/30/17 09:00 12/09/17 09:25 (Lipitor) 10 mg HS PO 11/29/17 21:00 12/08/17 20:47 (Cerebyx Inj) 200 mgpe Q12HR IV 11/30/17 21:00 12/09/17 09:28 (Lacrilube Opht Oint) 1 applic QID EACH EYE 12/03/17 18:00 12/09/17 09:26 (Duoneb Neb) 1 ampule Q6HR NEB NEB 12/06/17 07:00 12/09/17 03:08 (Free Water) 250 ml Q6H G-TUBE 12/07/17 09:00 12/09/17 09:00 (Pepcid) 10 mg BID NG 12/08/17 09:00 12/09/17 09:24 Piperacillin Sod/ Tazobactam Sod 50 ml @ 100 mls/hr Q6H IV 12/08/17 11:00 12/09/17 04:32 (Vitamin B1) 100 mg DAILY OG-TUBE 12/08/17 09:00 12/09/17 09:00 (Levemir Inj) 7 units Q12HR SQ 12/08/17 09:00 12/09/17 09:23 (Luminal Inj) 65 mg Q8HR IV 12/08/17 22:00 12/09/17 05:57 Family History Per EMR: Mother rheumatoid arthritis otherwise living and healthy in her 90s 3 sisters, one at age 40 alcohol abuse mother at age 15 childhood scleroderma, 1 brother s/p spinal cord injury. 1 son healthy. Father from cancer unknown type. History of myocardial infarct age 51 Both parents with glaucoma. . Substance Use Tobacco: Former smoker a few days cigarettes a day x 20 years Alcohol: 1-2 beers a day Prescription med abuse: None reported Illicits: None reported . Psychosocial History Originally from [facility], moved here to [place] about 3 years ago to be closer to her sister and mother. Her son Jamin lives in [place]. 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 Patient and her sister Evelyn take turns helping to care for their mother who is in her 90s. Spiritual/Cultural Factors Anabaptism adonay, attended [facility] [employer]. Would appreciate lift operator visits per significant other. (Karen Mahan) Ethical and Legal Issues Pt unable to participate due to encephalopathy, not clear she will regain ability to participate. Her sister has been involved in her care and decisions. She also is reported to have one son who lives in [place]. Not known at this time if she has advanced directives or health care surrogate designation. If she does not have advanced directives, then her son or any additional children would be appropriate legal proxy per [place] statutes ( if they wish to serve as such). . (Karen Mahan) Physical Exam Vital Signs Date Time Temp Pulse Resp B/P (MAP) Pulse Ox O2 Delivery O2 Flow Rate FiO2 12/09/17 09:35 40 12/09/17 09:35 40 12/09/17 09:35 100 40 12/09/17 09:00 100 13 116/62 (80) 100 12/09/17 08:00 98 12 113/65 (81) 100 12/09/17 08:00 40 12/09/17 07:54 100 40 12/09/17 07:00 100 Mechanical Ventilator 40 12/09/17 07:00 100.8 94 12 101/58 (72) 100 12/09/17 06:14 96 12/09/17 06:01 98 14 107/58 (74) 100 12/09/17 05:02 100 40 12/09/17 05:01 96 12 108/61 (77) 100 12/09/17 04:01 98.4 90 12 97/51 (66) 100 12/09/17 04:00 40 12/09/17 04:00 98 12/09/17 03:01 92 12 91/48 (62) 100 12/09/17 02:01 98 11 103/56 (72) 100 12/09/17 02:00 94 12/09/17 01:09 100 40 12/09/17 01:01 99.2 96 12 98/47 (64) 100 12/09/17 00:52 18 12/09/17 00:01 100 12 108/54 (72) 100 12/09/17 00:00 101 12/09/17 00:00 40 12/08/17 23:01 101.0 102 13 111/56 (74) 100 12/08/17 22:01 106 13 110/58 (75) 100 12/08/17 22:00 100 40 12/08/17 22:00 108 12/08/17 21:15 106 12/08/17 21:15 40 12/08/17 21:01 106 12 110/57 (74) 100 12/08/17 20:01 102 12 105/54 (71) 100 12/08/17 19:40 100 40 12/08/17 19:12 100 Mechanical Ventilator 2.00 40 12/08/17 19:01 100.2 96 11 103/51 (68) 100 12/08/17 18:01 106 13 123/54 (77) 100 12/08/17 18:00 96 12/08/17 17:02 100 40 12/08/17 17:01 94 12 110/49 (69) 100 12/08/17 16:00 40 12/08/17 16:00 40 12/08/17 16:00 96 12/08/17 16:00 99.6 110 12 117/60 (79) 100 12/08/17 15:58 100 40 12/08/17 15:01 104 12 107/54 (71) 100 12/08/17 14:00 96 12/08/17 14:00 99.3 99 12 104/52 (69) 100 12/08/17 13:42 100 40 12/08/17 13:01 98 11 91/47 (62) 100 12/08/17 12:00 40 12/08/17 12:00 106 8 113/54 (73) 100 12/08/17 12:00 110 12/08/17 11:05 100 40 12/08/17 11:00 100 9 118/66 (83) 100 Exam CONSTITUTIONAL/GENERAL: This is an adequately nourished patient, nonresponsive on mech vent TUBES/LINES/DRAINS: PIV BUE. Méndez catheter . ETT. NGT SKIN: No jaundice, rashes, or lesions. No wounds seen anteriorly. Skin warm/ dry HEAD: Atraumatic. Normocephalic. EYES: Pupils equal and round and reactive. No scleral icterus. No injection or drainage. Fundi not examined. ENT: Nose without bleeding or purulent drainage. Throat without visible erythema, exudates, masses, or lesions. NECK: Trachea midline. Supple, nontender. No palpable thyroid enlargement or nodularity. CARDIOVASCULAR: Regular rate and rhythm without murmur. No JVD. Peripheral pulses symmetric.2+ edema BUE, 1+ edema bilat feet RESPIRATORY/CHEST: Symmetric, unlabored respirations via ETT to mech vent, on CPAP RR 14-16. Clear to auscultation. Breath sounds equal bilaterally. GASTROINTESTINAL: Abdomen soft, round, nondistended. No palpable masses. Bowel sounds normoactive. +ngt left nare, TF infusing. GENITOURINARY: Without palpable bladder distension. Méndez catheter in place clear dark yellow urine. MUSCULOSKELETAL: Extremities without clubbing, cyanosis. 2+ edema BUE. 1+ bilat feet. No mottling or clubbing. LYMPHATICS: No palpable cervical or supraclavicular adenopathy. NEUROLOGICAL: on no sedation. minimally responsive to my exam. No eye opening to pain stimuli. No withdraw to pain BUE. No response to pain RLE. Slight leg flexion with pain stimuli LLE. PSYCHIATRIC: No obvious anxiety/depression-- limited assess due to clinical condition. . (Karen Mahan) Diagnostic Tests Laboratory Laboratory Tests Test 12/07/17 05:15 12/08/17 06:13 12/08/17 11:50 12/09/17 04:20 White Blood Count 11.2 TH/MM3 (4.0-11.0) 13.0 TH/MM3 (4.0-11.0) 10.6 TH/MM3 (4.0-11.0) Red Blood Count 3.30 MIL/MM3 (4.00-5.30) 2.88 MIL/MM3 (4.00-5.30) 2.87 MIL/MM3 (4.00-5.30) Hemoglobin 10.1 GM/DL (11.6-15.3) 9.1 GM/DL (11.6-15.3) 8.9 GM/DL (11.6-15.3) Hematocrit 31.2 % (35.0-46.0) 27.8 % (35.0-46.0) 27.9 % (35.0-46.0) Mean Corpuscular Volume 94.6 FL (80.0-100.0) 96.2 FL (80.0-100.0) 97.2 FL (80.0-100.0) Mean Corpuscular Hemoglobin 30.8 PG (27.0-34.0) 31.4 PG (27.0-34.0) 31.0 PG (27.0-34.0) Mean Corpuscular Hemoglobin Concent 32.5 % (32.0-36.0) 32.6 % (32.0-36.0) 31.9 % (32.0-36.0) Red Cell Distribution Width 13.9 % (11.6-17.2) 13.9 % (11.6-17.2) 14.1 % (11.6-17.2) Platelet Count 386 TH/MM3 (150-450) 446 TH/MM3 (150-450) 448 TH/MM3 (150-450) Mean Platelet Volume 7.3 FL (7.0-11.0) 8.2 FL (7.0-11.0) 8.3 FL (7.0-11.0) Neutrophils (%) (Auto) 73.1 % (16.0-70.0) 72.8 % (16.0-70.0) 72.3 % (16.0-70.0) Lymphocytes (%) (Auto) 13.4 % (9.0-44.0) 17.2 % (9.0-44.0) 17.5 % (9.0-44.0) Monocytes (%) (Auto) 11.9 % (0.0-8.0) 8.0 % (0.0-8.0) 7.5 % (0.0-8.0) Eosinophils (%) (Auto) 1.2 % (0.0-4.0) 1.3 % (0.0-4.0) 2.1 % (0.0-4.0) Basophils (%) (Auto) 0.4 % (0.0-2.0) 0.7 % (0.0-2.0) 0.6 % (0.0-2.0) Neutrophils # (Auto) 8.3 TH/MM3 (1.8-7.7) 9.5 TH/MM3 (1.8-7.7) 7.6 TH/MM3 (1.8-7.7) Lymphocytes # (Auto) 1.5 TH/MM3 (1.0-4.8) 2.2 TH/MM3 (1.0-4.8) 1.9 TH/MM3 (1.0-4.8) Monocytes # (Auto) 1.3 TH/MM3 (0-0.9) 1.0 TH/MM3 (0-0.9) 0.8 TH/MM3 (0-0.9) Eosinophils # (Auto) 0.1 TH/MM3 (0-0.4) 0.2 TH/MM3 (0-0.4) 0.2 TH/MM3 (0-0.4) Basophils # (Auto) 0.0 TH/MM3 (0-0.2) 0.1 TH/MM3 (0-0.2) 0.1 TH/MM3 (0-0.2) CBC Comment DIFF FINAL DIFF FINAL DIFF FINAL Differential Comment Blood Urea Nitrogen 16 MG/DL (7-18) 21 MG/DL (7-18) 21 MG/DL (7-18) Creatinine 0.84 MG/DL (0.50-1.00) 1.20 MG/DL (0.50-1.00) 1.20 MG/DL (0.50-1.00) Random Glucose 164 MG/DL (74-106) 158 MG/DL (74-106) 182 MG/DL (74-106) Total Protein 5.2 GM/DL (6.4-8.2) 5.2 GM/DL (6.4-8.2) Albumin 1.7 GM/DL (3.4-5.0) 1.7 GM/DL (3.4-5.0) Calcium Level 7.9 MG/DL (8.5-10.1) 8.0 MG/DL (8.5-10.1) 8.0 MG/DL (8.5-10.1) Phosphorus Level 3.4 MG/DL (2.5-4.9) Magnesium Level 2.4 MG/DL (1.5-2.5) Alkaline Phosphatase 143 U/L (45-117) 161 U/L (45-117) Aspartate Amino Transf (AST/SGOT) 70 U/L (15-37) 73 U/L (15-37) Alanine Aminotransferase (ALT/SGPT) 36 U/L (10-53) 44 U/L (10-53) Total Bilirubin 0.1 MG/DL (0.2-1.0) 0.1 MG/DL (0.2-1.0) Sodium Level 150 MEQ/L (136-145) 150 MEQ/L (136-145) 150 MEQ/L (136-145) Potassium Level 3.6 MEQ/L (3.5-5.1) 4.1 MEQ/L (3.5-5.1) 4.1 MEQ/L (3.5-5.1) Chloride Level 114 MEQ/L (98-107) 114 MEQ/L (98-107) 115 MEQ/L (98-107) Carbon Dioxide Level 31.0 MEQ/L (21.0-32.0) 30.4 MEQ/L (21.0-32.0) 30.8 MEQ/L (21.0-32.0) Anion Gap 5 MEQ/L (5-15) 6 MEQ/L (5-15) 4 MEQ/L (5-15) Estimat Glomerular Filtration Rate 68 ML/MIN (>89) 45 ML/MIN (>89) 45 ML/MIN (>89) Phenytoin (Dilantin) Level 9.3 MCG/ML (10.0-20.0) 9.7 MCG/ML (10.0-20.0) 8.7 MCG/ML (10.0-20.0) Stool C. difficile Toxin (PCR) NEGATIVE (NEGATIVE) Stl C. difficile Toxin Epiderm 027 PRESUMPTIVE NEGATIVE (Karen Mahan) Result Diagram: 12/09/17 04212/09/17 0420 Microbiology Microbiology Date/Time Source Procedure Growth Status 12/08/17 06:13 Blood Peripheral Aerobic Blood Culture Pending Received 12/08/17 06:13 Blood Peripheral Anaerobic Blood Culture Pending Received 12/08/17 06:05 Blood Peripheral Aerobic Blood Culture Pending Received 12/08/17 06:05 Blood Peripheral Anaerobic Blood Culture Pending Received 12/08/17 06:00 Sputum Nasal Tracheal Aspirate Gram Stain - Final Resulted 12/08/17 06:00 Sputum Nasal Tracheal Aspirate Sputum Culture Pending Resulted 12/08/17 06:09 Urine Catheterized Urine Urine Culture Pending Received Imaging Last Impressions Chest X-Ray 12/08/17 0000 Signed Impressions: Service Date/Time: Friday, December 08, 2017 08:09 - CONCLUSION: 1. Interval removal of left internal jugular central venous line. 2. Mild improvement in pulmonary opacities. Shaquille Haley MD Gall Bladder Ultrasound 12/03/17 0000 Signed Impressions: Service Date/Time: Sunday, December 03, 2017 07:59 - CONCLUSION: 1. Ascites and bilateral pleural effusions. 2. Mildly distended gallbladder without evidence of wall thickening or cholelithiasis. 3. Otherwise unremarkable exam. Boo Cartwright MD Lumbar Puncture Fluoroscopy 12/02/17 0000 Signed Impressions: Service Date/Time: Saturday, December 02, 2017 15:28 - CONCLUSION: Uncomplicated fluoroscopically guided lumbar puncture. Aly Leigh MD Renal Ultrasound 11/29/17 1656 Signed Impressions: Service Date/Time: Wednesday, November 29, 2017 13:16 - CONCLUSION: 1. Both kidneys are sonographically normal without hydronephrosis or nephrolithiasis. 2. Very abnormal appearance of the gallbladder with mural thickening and minimal pericholecystic fluid Dani Titus MD Brain MRI 11/29/17 0000 Signed Impressions: Service Date/Time: Wednesday, November 29, 2017 13:27 - CONCLUSION: 1. Mild diffuse ventriculomegaly. Clinical correlation for normal pressure hydrocephalus is recommended. 2. [id number] periventricular small vessel ischemic white matter demyelination, out of proportion for age. Aly Leigh MD Head CT 11/28/17 0000 Signed Impressions: Service Date/Time: November 15:46 - CONCLUSION: 1. Ventriculomegaly suggesting central cerebral atrophy versus hydrocephalus. Clinical correlation is recommended. 2. No acute infarct, acute hemorrhage, midline shift or extra-axial fluid collections. Dev Christopher MD (Karen Mahan) Patient/Family Conference Issues Discussed: . (Karen Mahan) Assessment and Plan Disease Oriented Problem List: (1) Hyperkalemia (2) Acute renal failure (3) DKA (diabetic ketoacidoses) (4) Altered mental status (5) Metabolic acidosis (6) Hypotension (7) Seizure cerebral (8) Encephalopathy, metabolic (9) NSTEMI (non-ST elevated myocardial infarction) (10) UTI (urinary tract infection) (11) Type 1 diabetes (12) Leukocytosis (13) Respiratory failure (14) Hypertension Symptom Scale: (1) Encephalopathy 0-10 Scale: Unable to quantify (2) Dyspnea 0-10 Scale: Unable to quantify Pertinent Non-Medical Issues Psychosocial:Originally from [facility], moved here to [place] about 3 years ago to be closer to her sister and mother. Her son Jamin lives in [place]. 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 Patient and her sister Evelyn take turns helping to care for their mother who is in her 90s. Spiritual:Anabaptism adonay, attended [facility] [employer]. Would appreciate lift operator visits per significant other. Legal:Pt unable to participate due to encephalopathy, not clear she will regain ability to participate. Her sister has been involved in her care and decisions. She also is reported to have one son who lives in [place]. Not known at this time if she has advanced directives or health care surrogate designation. If she does not have advanced directives, then her son or any additional children would be appropriate legal proxy per [place] statutes ( if they wish to serve as such). Ethical issues impacting care: No ethical issues identified. Important Contacts sister Evelyn Obrien at [phone] Son Jamin (in [place]) Significant other León De León [phone]/ [phone] . Prognosis This patient was initially admitted for altered mental status, findings of DKA. She also suffered acute renal failure, respiratory failure. She were now remains profoundly encephalopathic on mechanical vent at this time unable to medically wean. 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 It is likely she will require tracheostomy and PEG tube to continue aggressive treatment course. . Code Status: Full Code Plan * Legal decision maker:Pt unable to participate due to encephalopathy, not clear she will regain ability to participate. Her sister has been involved in her care and decisions. She also is reported to have one son who lives in [place]. Not known at this time if she has advanced directives or health care surrogate designation. If she does not have advanced directives, then her son or any additional children would be appropriate legal proxy per [place] statutes ( if they wish to serve as such). * Goals: TBD, pending arrangement of family meeting with appropriate decision maker(s). Palliative contact information left with significant other at bedside , and on voicemail with sister. Awaiting callback. 1500 UPDATE--received call back from his sister. She is very hoarse difficult to hear her over the phone. She indicates she has been staying away due to illness which she is improving from. Briefly review with her palliative consultation, purpose of visit, patient general condition and possible decisions to be made going forward given patient still critically ill. Review [place] statutes and appropriate legal decision makers. She does not believe patient has advanced directives in which case legal decision making would fall to her son Prince. She indicates he will be coming in town from [place] he is currently working on travel arrangements so she is not certain of exactly when he will be here. She has been unable to come in person secondary to her current illness. Advised we will need to make plans going forward for treatment decisions as patient unable to wean off ventilator. She will be in touch with son and advise palliative when they are all able to meet. Advised if son is not able to travel here by the end of the week then we can certainly meet with her in person when she is able, and perhaps get him on the phone. She is amenable to this. Further goals to be addressed once family is able to discuss further either in person or via conference call. * CODE STATUS: Full code by default * SYMPTOMS: --Encephalopathy-admitted with DKA, altered mental status. MRI, CSF etc. negative. Concern for underlying anoxic encephalopathy. Initially was some seizure activity on EEG. Neurology following. Minimal improvement in neurological assessment off of sedation. --Dyspnea-emergently intubated for acute respiratory failure, inability to protect airway. Remains on mechanical vent. Ongoing CPAP trials however due to encephalopathy will likely not protect airway and may be unable to medically extubate, may require tracheostomy for ongoing aggressive treatment and ventilator weaning. -- nonresponsive, no apparent pain * Palliative care will continue to follow during hospital course as condition evolves, to assist patient/decision-maker with understanding of medical conditions, weighing benefits/burdens of treatment options, for clarification of goals of treatment. Additionally will assist with any symptoms of palliative concern . (Karen Mahan) Time Spent Total Floor Time (mins): 50 (Physical exam, discussion with significant other, discussion with sister, discussion with nursing) (Karen Mahan) Thank you for the opportunity to participate in the care of Ms. Davis. (Karen Mahan) Attestation To help prompt me to consider important information that might be impacting today's encounter and assessment, information from prior notes written by myself or my colleagues may have been "brought forward" into today's note. My signature on this note, however, is an attestation that I personally performed the exam, history, and/or decision-making noted today, and, unless otherwise indicated, the interactions with patient, family, and staff as well as the review of records all occurred today. I also attest that the listed assessment and stated plan reflect my best clinical judgment today based on the combination of historical information, prior notes, and today's exam/ interactions. When time spent is documented, it refers only to time spent today by the signer, or if indicated, combined time spent today by collaborating physician/nurse practitioner. (Karen Mahan) Collaborating MD Comments Chart reviewed. Case discussed with palliative care LIFE CONSULTANT. Above note reviewed and I concur. . (Oren Gan MD) Karen Mahan Dec 09, 2017 11:16 Oren Gan MD Jan 17, 2018 16:57
--- NOTE | 2017-12-09 12:25 | HHI.IDPN ---
Subjective Subjective Remarks ID FU DR VENTURA Unresponsive on ventilator Low grade fevers sputum +gnr cxr clear +diarrhea stool sent Negative stool cdt Antibiotics ZOSYN Lines cvl discontinued piv in each arm (Sveta Duran) Remarks Fevers again (Stacey Ventura MD) Allergies: Coded Allergies: No Known Allergies (Unverified Allergy, Unknown, 11/28/17) Review of Systems Constitutional Constitutional: Fever Constitutional Remarks + FEVERS SEDATED ON VENT SUPPORT (Sveta Duran) Objective . Vital Signs Date Time Temp Pulse Resp B/P (MAP) Pulse Ox O2 Delivery O2 Flow Rate FiO2 12/09/17 09:35 40 12/09/17 09:35 40 12/09/17 09:35 100 40 12/09/17 09:00 100 13 116/62 (80) 100 12/09/17 08:00 98 12 113/65 (81) 100 12/09/17 08:00 40 12/09/17 07:54 100 40 12/09/17 07:00 100 Mechanical Ventilator 40 12/09/17 07:00 100.8 94 12 101/58 (72) 100 12/09/17 06:14 96 12/09/17 06:01 98 14 107/58 (74) 100 12/09/17 05:02 100 40 12/09/17 05:01 96 12 108/61 (77) 100 12/09/17 04:01 98.4 90 12 97/51 (66) 100 12/09/17 04:00 40 12/09/17 04:00 98 12/09/17 03:01 92 12 91/48 (62) 100 12/09/17 02:01 98 11 103/56 (72) 100 12/09/17 02:00 94 12/09/17 01:09 100 40 12/09/17 01:01 99.2 96 12 98/47 (64) 100 12/09/17 00:52 18 12/09/17 00:01 100 12 108/54 (72) 100 12/09/17 00:00 101 12/09/17 00:00 40 12/08/17 23:01 101.0 102 13 111/56 (74) 100 12/08/17 22:01 106 13 110/58 (75) 100 12/08/17 22:00 100 40 12/08/17 22:00 108 12/08/17 21:15 106 12/08/17 21:15 40 12/08/17 21:01 106 12 110/57 (74) 100 12/08/17 20:01 102 12 105/54 (71) 100 12/08/17 19:40 100 40 12/08/17 19:12 100 Mechanical Ventilator 2.00 40 12/08/17 19:01 100.2 96 11 103/51 (68) 100 12/08/17 18:01 106 13 123/54 (77) 100 12/08/17 18:00 96 12/08/17 17:02 100 40 12/08/17 17:01 94 12 110/49 (69) 100 12/08/17 16:00 40 12/08/17 16:00 40 12/08/17 16:00 96 12/08/17 16:00 99.6 110 12 117/60 (79) 100 12/08/17 15:58 100 40 12/08/17 15:01 104 12 107/54 (71) 100 12/08/17 14:00 96 12/08/17 14:00 99.3 99 12 104/52 (69) 100 12/08/17 13:42 100 40 12/08/17 13:01 98 11 91/47 (62) 100 . Laboratory Tests Test 12/08/17 06:13 12/09/17 04:20 White Blood Count 13.0 TH/MM3 10.6 TH/MM3 Red Blood Count 2.88 MIL/MM3 2.87 MIL/MM3 Hemoglobin 9.1 GM/DL 8.9 GM/DL Hematocrit 27.8 % 27.9 % Mean Corpuscular Volume 96.2 FL 97.2 FL Mean Corpuscular Hemoglobin 31.4 PG 31.0 PG Mean Corpuscular Hemoglobin Concent 32.6 % 31.9 % Red Cell Distribution Width 13.9 % 14.1 % Platelet Count 446 TH/MM3 448 TH/MM3 Mean Platelet Volume 8.2 FL 8.3 FL Neutrophils (%) (Auto) 72.8 % 72.3 % Lymphocytes (%) (Auto) 17.2 % 17.5 % Monocytes (%) (Auto) 8.0 % 7.5 % Eosinophils (%) (Auto) 1.3 % 2.1 % Basophils (%) (Auto) 0.7 % 0.6 % Neutrophils # (Auto) 9.5 TH/MM3 7.6 TH/MM3 Lymphocytes # (Auto) 2.2 TH/MM3 1.9 TH/MM3 Monocytes # (Auto) 1.0 TH/MM3 0.8 TH/MM3 Eosinophils # (Auto) 0.2 TH/MM3 0.2 TH/MM3 Basophils # (Auto) 0.1 TH/MM3 0.1 TH/MM3 CBC Comment DIFF FINAL DIFF FINAL Differential Comment Laboratory Tests Test 12/08/17 06:13 12/09/17 04:20 Blood Urea Nitrogen 21 MG/DL 21 MG/DL Creatinine 1.20 MG/DL 1.20 MG/DL Random Glucose 158 MG/DL 182 MG/DL Total Protein 5.2 GM/DL Albumin 1.7 GM/DL Calcium Level 8.0 MG/DL 8.0 MG/DL Alkaline Phosphatase 161 U/L Aspartate Amino Transf (AST/SGOT) 73 U/L Alanine Aminotransferase (ALT/SGPT) 44 U/L Total Bilirubin 0.1 MG/DL Sodium Level 150 MEQ/L 150 MEQ/L Potassium Level 4.1 MEQ/L 4.1 MEQ/L Chloride Level 114 MEQ/L 115 MEQ/L Carbon Dioxide Level 30.4 MEQ/L 30.8 MEQ/L Anion Gap 6 MEQ/L 4 MEQ/L Estimat Glomerular Filtration Rate 45 ML/MIN 45 ML/MIN Microbiology Date/Time Source Procedure Growth Status 12/08/17 06:13 Blood Peripheral Aerobic Blood Culture - Preliminary NO GROWTH IN 1 DAY Resulted 12/08/17 06:13 Blood Peripheral Anaerobic Blood Culture - Preliminary NO GROWTH IN 1 DAY Resulted 12/08/17 06:05 Blood Peripheral Aerobic Blood Culture - Preliminary NO GROWTH IN 1 DAY Resulted 12/08/17 06:05 Blood Peripheral Anaerobic Blood Culture - Preliminary NO GROWTH IN 1 DAY Resulted 12/08/17 06:00 Sputum Nasal Tracheal Aspirate Gram Stain - Final Resulted 12/08/17 06:00 Sputum Culture - Preliminary Gram Negative Isaiah Resulted 12/08/17 06:09 Urine Catheterized Urine Urine Culture Pending Worksheet Physical Exam SEDATED ON VENT ORALLY INTUBATED +LEFT IJ.Orogastric tube CHEST : LUNGS ARE COARSE DIMINISHED IN BASES CARDIAC: RRR ABD: SOFT ACTIVE, bowel sounds heard EXT + EDEMA (Duran,Sveta [facility]) Assessment & Plan Diagnosis: (1) DKA (diabetic ketoacidoses) ICD Codes: E13.10 - Other specified diabetes mellitus with ketoacidosis without coma Status: Acute (2) Type 1 diabetes ICD Codes: E10.9 - Type 1 diabetes mellitus without complications Status: Acute (3) Respiratory failure ICD Codes: J96.90 - Respiratory failure, unspecified, unspecified whether with hypoxia or hypercapnia Status: Acute (4) Seizure cerebral ICD Codes: I67.89 - Other cerebrovascular disease Status: Acute (5) Encephalopathy, metabolic ICD Codes: G93.41 - Metabolic encephalopathy Status: Acute Plan: ON / ZOSYN ADD LEVAQUIN PENDING SENSITIVITY WILL MONITOR AND FU ON FLAGYL WILL CONTINUE WITH FLORASTOR (Sveta Duran) Diagnosis: (1) DKA (diabetic ketoacidoses) ICD Codes: E13.10 - Other specified diabetes mellitus with ketoacidosis without coma Status: Acute (2) Type 1 diabetes ICD Codes: E10.9 - Type 1 diabetes mellitus without complications Status: Acute (3) Respiratory failure ICD Codes: J96.90 - Respiratory failure, unspecified, unspecified whether with hypoxia or hypercapnia Status: Acute (4) Seizure cerebral ICD Codes: I67.89 - Other cerebrovascular disease Status: Acute (5) Encephalopathy, metabolic ICD Codes: G93.41 - Metabolic encephalopathy Status: Acute Plan: ON / ZOSYN WILL MONITOR AND FU Follow repeat cultures Lines removed Stool C diff negative Sputum culture with GNR Continue IV Zosyn (Stacey Ventura MD) Problem Qualifiers (1) DKA (diabetic ketoacidoses): Qualified Codes: E10.11 - Type 1 diabetes mellitus with ketoacidosis with coma Sveta Duran Dec 09, 2017 12:25 Stacey Ventura MD Dec 09, 2017 16:50
[2017-12-09] MEDS: ATORVASTATIN 10 MG TAB PO SCH (21:06)
[2017-12-10] VITALS (47 sets, daily range): BP systolic 83–146; BP diastolic 47–84; PULSE 77–104; RESP 6–33; TEMP 98–99.6; O2SAT 85–100
[2017-12-10] MEDS: INSULIN ASPART SUPPLEMENTAL SCALE SQ SCH ×6 (01:01→20:57)
[2017-12-10] MEDS: FREE WATER G-TUBE SCH ×4 (02:15→21:00)
[2017-12-10] MEDS: HEPARIN SODIUM - SQ 10,000 UNITS/ML VIAL SQ SCH ×3 (02:15→18:23)
[2017-12-10] MEDS: CHLORHEXIDINE GLUCONATE 2 % 1 PACK (2 CLOTHS) TOP SCH (04:00)
[2017-12-10] MEDS: RESP: ALBUTEROL 2.5 MG/IPRATROPIUM 0.5 MG NEB (SCH) NEB (04:16)
[2017-12-10] MEDS: PIPERACIL-TAZO 3.375 GM PREMIX 50 ML IV SCH ×2 (05:24→11:38)
[2017-12-10] MEDS: INSULIN DETEMIR 100 UNITS/ML VIAL SQ SCH ×2 (09:48→21:04)
[2017-12-10] MEDS: MULTIVITAMIN TAB PO SCH (09:50)
[2017-12-10] MEDS: FOSPHENYTOIN SODIUM 100 MG PE/2 ML VIAL IV SCH ×2 (09:50→21:46)
[2017-12-10] MEDS: FAMOTIDINE 20 MG TAB NG SCH ×2 (09:50→21:04)
[2017-12-10] MEDS: CHLORHEXIDINE 0.12% (ORAL KIT) 15 ML CUP MT SCH ×2 (09:51→20:56)
[2017-12-10] MEDS: ARTIFICIAL TEARS OPTH OINT 3.5 APPLIC/3.5 GM TUBO EACH EYE SCH ×4 (09:51→21:04)
[2017-12-10] MEDS: ASPIRIN 81 MG CHEW TAB CHEW SCH (09:51)
[2017-12-10] MEDS: SODIUM CHLORIDE 0.9% FLUSH 10 ML FLUSH IV FLUSH SCH ×3 (09:52→21:03)
[2017-12-10] MEDS: THIAMINE HCL 100 MG TAB OG-TUBE SCH (10:04)
--- NOTE | 2017-12-10 12:07 | HHI.IDPN ---
Subjective Subjective Remarks chart reviewewd d/w RN pt is severely encephalopathic, not waking up off sedation remains on vent afebrile labile BP Antibiotics ZOSYN Lines cvl discontinued piv in each arm Allergies: Coded Allergies: No Known Allergies (Unverified Allergy, Unknown, 11/28/17) Objective . Vital Signs Date Time Temp Pulse Resp B/P (MAP) Pulse Ox O2 Delivery O2 Flow Rate FiO2 12/10/17 08:12 100 40 12/10/17 08:01 92 23 146/73 (97) 100 12/10/17 08:00 93 12/10/17 07:06 80 12 92/54 (67) 100 12/10/17 07:01 78 11 83/48 (60) 100 12/10/17 06:01 78 12 91/49 (63) 100 12/10/17 06:00 77 12/10/17 05:03 80 11 98/51 (67) 100 12/10/17 04:16 40 12/10/17 04:15 100 40 12/10/17 04:01 99.2 92 6 135/77 (96) 100 12/10/17 04:00 94 12/10/17 03:01 86 12 130/76 (94) 100 12/10/17 02:01 86 12 122/77 (92) 100 12/10/17 02:01 86 12 122/77 (92) 100 12/10/17 02:00 91 12/10/17 02:00 86 14 100 12/10/17 01:25 100 40 12/10/17 01:01 86 11 119/74 (89) 100 12/10/17 01:01 86 11 119/74 (89) 100 12/10/17 01:00 86 12 100 12/10/17 00:01 98.6 88 29 122/75 (91) 99 12/10/17 00:01 88 29 122/75 (91) 99 12/10/17 00:00 40 12/10/17 00:00 86 33 85 12/10/17 00:00 88 12/09/17 23:13 92 12 114/65 (81) 98 12/09/17 22:50 100 40 12/09/17 22:27 89 12/09/17 22:01 86 11 106/61 (76) 100 12/09/17 21:01 92 12 120/66 (84) 100 12/09/17 20:01 99.2 96 12 116/59 (78) 100 12/09/17 20:00 40 12/09/17 20:00 82 12/09/17 19:40 100 40 12/09/17 19:30 97 Mechanical Ventilator 2.00 40 12/09/17 19:01 86 11 109/56 (73) 100 12/09/17 19:00 84 12/09/17 18:12 100 40 12/09/17 18:00 88 12/09/17 18:00 86 12 100/57 (71) 100 12/09/17 17:00 98.5 88 11 92/49 (63) 100 12/09/17 17:00 90 12/09/17 16:00 40 12/09/17 16:00 92 12 106/56 (73) 100 12/09/17 16:00 94 12/09/17 15:40 40 12/09/17 15:00 94 12/09/17 15:00 94 20 100/48 (65) 100 12/09/17 14:00 100 40 12/09/17 14:00 96 19 95/48 (64) 100 12/09/17 14:00 96 12/09/17 13:00 104 12/09/17 13:00 104 23 104/51 (68) 100 12/09/17 12:23 16 12/09/17 12:00 100.2 102 16 112/59 (76) 100 12/09/17 12:00 40 12/09/17 12:00 102 . Laboratory Tests Test 12/09/17 04:20 White Blood Count 10.6 TH/MM3 Red Blood Count 2.87 MIL/MM3 Hemoglobin 8.9 GM/DL Hematocrit 27.9 % Mean Corpuscular Volume 97.2 FL Mean Corpuscular Hemoglobin 31.0 PG Mean Corpuscular Hemoglobin Concent 31.9 % Red Cell Distribution Width 14.1 % Platelet Count 448 TH/MM3 Mean Platelet Volume 8.3 FL Neutrophils (%) (Auto) 72.3 % Lymphocytes (%) (Auto) 17.5 % Monocytes (%) (Auto) 7.5 % Eosinophils (%) (Auto) 2.1 % Basophils (%) (Auto) 0.6 % Neutrophils # (Auto) 7.6 TH/MM3 Lymphocytes # (Auto) 1.9 TH/MM3 Monocytes # (Auto) 0.8 TH/MM3 Eosinophils # (Auto) 0.2 TH/MM3 Basophils # (Auto) 0.1 TH/MM3 CBC Comment DIFF FINAL Differential Comment Laboratory Tests Test 12/09/17 04:20 Blood Urea Nitrogen 21 MG/DL Creatinine 1.20 MG/DL Random Glucose 182 MG/DL Calcium Level 8.0 MG/DL Sodium Level 150 MEQ/L Potassium Level 4.1 MEQ/L Chloride Level 115 MEQ/L Carbon Dioxide Level 30.8 MEQ/L Anion Gap 4 MEQ/L Estimat Glomerular Filtration Rate 45 ML/MIN Microbiology Date/Time Source Procedure Growth Status 12/08/17 06:13 Blood Peripheral Aerobic Blood Culture - Preliminary NO GROWTH IN 2 DAYS Resulted 12/08/17 06:13 Blood Peripheral Anaerobic Blood Culture - Preliminary NO GROWTH IN 2 DAYS Resulted 12/08/17 06:05 Blood Peripheral Aerobic Blood Culture - Preliminary NO GROWTH IN 2 DAYS Resulted 12/08/17 06:05 Blood Peripheral Anaerobic Blood Culture - Preliminary NO GROWTH IN 2 DAYS Resulted 12/08/17 06:00 Sputum Nasal Tracheal Aspirate Gram Stain - Final Resulted 12/08/17 06:00 Sputum Culture - Preliminary Gram Negative Isaiah Resulted 12/08/17 06:09 Urine Catheterized Urine Urine Culture - Preliminary Yeast-Id To Follow Resulted Imaging Last Impressions Chest X-Ray 12/08/17 0000 Signed Impressions: Service Date/Time: Friday, December 08, 2017 08:09 - CONCLUSION: 1. Interval removal of left internal jugular central venous line. 2. Mild improvement in pulmonary opacities. Shaquille Haley MD Gall Bladder Ultrasound 12/03/17 0000 Signed Impressions: Service Date/Time: Sunday, December 03, 2017 07:59 - CONCLUSION: 1. Ascites and bilateral pleural effusions. 2. Mildly distended gallbladder without evidence of wall thickening or cholelithiasis. 3. Otherwise unremarkable exam. Boo Cartwright MD Lumbar Puncture Fluoroscopy 12/02/17 0000 Signed Impressions: Service Date/Time: Saturday, December 02, 2017 15:28 - CONCLUSION: Uncomplicated fluoroscopically guided lumbar puncture. Aly Leigh MD Renal Ultrasound 11/29/17 1656 Signed Impressions: Service Date/Time: Wednesday, November 29, 2017 13:16 - CONCLUSION: 1. Both kidneys are sonographically normal without hydronephrosis or nephrolithiasis. 2. Very abnormal appearance of the gallbladder with mural thickening and minimal pericholecystic fluid Dani Titus MD Brain MRI 11/29/17 0000 Signed Impressions: Service Date/Time: Wednesday, November 29, 2017 13:27 - CONCLUSION: 1. Mild diffuse ventriculomegaly. Clinical correlation for normal pressure hydrocephalus is recommended. 2. [id number] periventricular small vessel ischemic white matter demyelination, out of proportion for age. Aly Leigh MD Head CT 11/28/17 0000 Signed Impressions: Service Date/Time: November 15:46 - CONCLUSION: 1. Ventriculomegaly suggesting central cerebral atrophy versus hydrocephalus. Clinical correlation is recommended. 2. No acute infarct, acute hemorrhage, midline shift or extra-axial fluid collections. Dev Christopher MD Physical Exam CONSTITUTIONAL/GENERAL: This is an adequately nourished patient, in no apparent distress. TUBES/LINES/DRAINS: SKIN: No jaundice, rashes, or lesions. Ecchymoses on upper extremities. No wounds seen anteriorly. Skin temperature appropriate. Not diaphoretic. CARDIOVASCULAR: Regular rate and rhythm without murmurs, gallops, or rubs. No JVD. Peripheral pulses symmetric. RESPIRATORY/CHEST: Symmetric, unlabored respirations. Clear to auscultation. Breath sounds equal bilaterally. No wheezes, rales, or rhonchi. R sided CT with serosang d/c GASTROINTESTINAL: Abdomen soft, moderately distended, no reaction to palpation. No hepato-splenomegaly, or palpable masses. No guarding. Bowel sounds present. PEG in placee GENITOURINARY: Without palpable bladder distension. Méndez catheter in place with clear yellow urine MUSCULOSKELETAL: Extremities without clubbing, cyanosis, or edema. No joint tenderness or effusion noted. No calf tenderness. No mottling or clubbing. LYMPHATICS: No palpable cervical or supraclavicular adenopathy. NEUROLOGICAL: Unresponsive. + spontaneous movements RUE, nothing to commands; no eye opening to command Gag and cough present PSYCHIATRIC: unable to assess Assessment & Plan Remarks sepsis: on [resentation fever up to 100.7, leukocytopsis with WBC of 25 K and lactic acidosis DKA - probably 2/2 sepiss: resoplved Acute VDRF, BAL, PNA, now growing GNB No e/o Meningitis on CSF Probably anoxic encephalopathy - neurology ff No e/o cholecytitis - US findings were dw Dr Titus - further w/u with RUQ US was recom'd Crititical, stable Worseing renal fnx Funguria ? clin significance - dc zosyn - start cefepime - add fluconzole monitor renal fnx Anh Childs MD Dec 10, 2017 12:07
[2017-12-10] MEDS: CEFEPIME INJ 2,000 MG in SODIUM CHLORIDE 0.9% INJ 100 ML IV SCH ×2 (14:01→21:03)
--- NOTE | 2017-12-10 17:35 | HHI.HCPN ---
Reason for visit a. To assist with evaluation and management of symptoms including: dyspnea, encephalopathy, seizures. b. To assist medical decision maker(s) with: better understanding of current medical conditions; weighing benefits/burdens of medical treatment options; making medical treatment decisions. (Marii Horowitz) Subjective/Interval History Patient seen to follow-up on symptoms of dyspnea, encephalopathy, seizures. Patient is currently intubated, not sedated since 12/03. She was intubated for airway protection 11/29. She is tolerating intermittent CPAP trials up to 6 hours. Trials have been terminated for tachypnea and apnea. She is on 40% FiO2. She is intermittently tachypneic with respiratory rates up to 33. Patient is unresponsive to noxious stimuli and did not withdraw to either local or central pain triggers. She does not blink to threat or responding to command. She is seen to spontaneously move her hand from time to time or open her eyes but does not focus or track. She shows no recognition of family or surroundings. She is on multiple antiepileptics. EEGs have been consistently abnormal, the most recent showing no epileptiform features. She is currently receiving phenobarbital 65 mg every 8 hours and Cerebyx 200 mg PEG every 12 hours. She was previously on Keppra but that was discontinued 12/05. She remains on seizure precautions. . Family/friend interactions Met with patient's son Jamin Serrano, sister Evelyn Obrien and significant other León De León at bedside and reviewed clinical course, diagnostic testing, wine consultant's opinion and current options for treatment. We discussed patient's presentation at home and her history of diabetes with frequent episodes of hypoglycemia which had previously resulted in seizures per the son' s report. He denied that she had ever previously been on an antiseizure medication as all of her seizures were related to hypoglycemia in the past. We discussed the upcoming decisions that the family will be considering to include tracheostomy and PEG placement with the benefits and burdens that accompany those decisions. I also explained compassionate withdrawal as an alternative to tracheostomy and PEG placement if it is the family's decision the patient had reached her maximum level of improvement and had a quality of life that the patient would not find acceptable. We discussed CODE STATUS and the options available to include CPR, shock, ACLS drugs versus comfort care and symptom control with medications. Dr. Rosenberg also entered this meeting and presented his findings and opinions on prognosis. Family had several questions regarding EEGs, imaging studies and testing that would allow for a clearer picture of her neurological prognosis. Dr. Rosenberg will order an EEG for the morning and discuss prognosis and options with Dr. Neville for neurology, to include possible MRI if deemed appropriate by neurology. Based on the findings of the EEG the family would like to consider reduction or holding of the phenobarbital to ascertain the effect on the patient's inability to wake up if no seizure activity is found and if deemed appropriate by Dr. Neville. Contact information was provided for further questions or concerns. Follow-up tomorrow was discussed for further questions and assessment. . (Marii Horowitz) Advance Directives Advance Directive Specifics Health Care Surrogate(s): None available. Per [place] statutes, her son Jamin would be the healthcare proxy and is willing to serve. . Documented care wishes: No documented care wishes available. . Significant change in goals: No significant changes in goals at this time. . (Marii Horowitz) Objective Vital Signs Date Time Temp Pulse Resp B/P (MAP) Pulse Ox O2 Delivery O2 Flow Rate FiO2 12/10/17 14:00 100 40 12/10/17 08:12 100 40 12/10/17 08:01 92 23 146/73 (97) 100 12/10/17 08:00 40 12/10/17 08:00 93 12/10/17 08:00 97 Mechanical Ventilator 40 Bi-Pap 12/10/17 07:06 80 12 92/54 (67) 100 12/10/17 07:01 78 11 83/48 (60) 100 12/10/17 06:01 78 12 91/49 (63) 100 12/10/17 06:00 77 12/10/17 05:03 80 11 98/51 (67) 100 12/10/17 04:16 40 12/10/17 04:15 100 40 12/10/17 04:01 99.2 92 6 135/77 (96) 100 12/10/17 04:00 94 12/10/17 03:01 86 12 130/76 (94) 100 12/10/17 02:01 86 12 122/77 (92) 100 12/10/17 02:01 86 12 122/77 (92) 100 12/10/17 02:00 91 12/10/17 02:00 86 14 100 12/10/17 01:25 100 40 12/10/17 01:01 86 11 119/74 (89) 100 12/10/17 01:01 86 11 119/74 (89) 100 12/10/17 01:00 86 12 100 12/10/17 00:01 98.6 88 29 122/75 (91) 99 12/10/17 00:01 88 29 122/75 (91) 99 12/10/17 00:00 40 12/10/17 00:00 86 33 85 12/10/17 00:00 88 12/09/17 23:13 92 12 114/65 (81) 98 12/09/17 22:50 100 40 12/09/17 22:27 89 12/09/17 22:01 86 11 106/61 (76) 100 12/09/17 21:01 92 12 120/66 (84) 100 12/09/17 20:01 99.2 96 12 116/59 (78) 100 12/09/17 20:00 40 12/09/17 20:00 82 12/09/17 19:40 100 40 12/09/17 19:30 97 Mechanical Ventilator 2.00 40 12/09/17 19:01 86 11 109/56 (73) 100 12/09/17 19:00 84 12/09/17 18:12 100 40 12/09/17 18:00 88 12/09/17 18:00 86 12 100/57 (71) 100 Intake & Output 12/10/17 12/10/17 07:00 19:00 Intake Total 150 ml Output Total 1100 ml Balance -1100 ml 150 ml IV Total 150 ml Output Urine Total 1100 ml # Bowel Movements 3 Physical Exam CONSTITUTIONAL/GENERAL: This is an adequately nourished patient, nonresponsive on mech vent TUBES/LINES/DRAINS: PIV BUE. Méndez catheter . ETT. NGT SKIN: No jaundice, rashes, or lesions. No wounds seen anteriorly. Skin warm/ dry HEAD: Atraumatic. Normocephalic. EYES: Pupils equal and round and reactive. No scleral icterus. No injection or drainage. Fundi not examined. ENT: Nose without bleeding or purulent drainage. Throat without visible erythema, exudates, masses, or lesions. NECK: Trachea midline. Supple, nontender. No palpable thyroid enlargement or nodularity. CARDIOVASCULAR: Regular rate and rhythm without murmur. No JVD. Peripheral pulses symmetric.2+ edema BUE, 1+ edema bilat feet RESPIRATORY/CHEST: Symmetric, unlabored respirations via ETT to mech vent. Clear to auscultation. Breath sounds equal bilaterally. GASTROINTESTINAL: Abdomen soft, round, nondistended. No palpable masses. Bowel sounds normoactive. +ngt left nare, TF infusing. GENITOURINARY: Without palpable bladder distension. Méndez catheter in place clear dark yellow urine. MUSCULOSKELETAL: Extremities without clubbing, cyanosis. 2+ edema BUE. 1+ bilat feet. No mottling or clubbing. LYMPHATICS: No palpable cervical or supraclavicular adenopathy. NEUROLOGICAL: on no sedation. Not responsive to my exam. No eye opening to pain stimuli. No withdrawal to pain in all 4 extremities. PSYCHIATRIC: Not responsive. . (Marii Horowitz) Diagnostic Tests Laboratory Laboratory Tests Test 12/08/17 06:13 12/08/17 11:50 12/09/17 04:20 White Blood Count 13.0 TH/MM3 (4.0-11.0) 10.6 TH/MM3 (4.0-11.0) Red Blood Count 2.88 MIL/MM3 (4.00-5.30) 2.87 MIL/MM3 (4.00-5.30) Hemoglobin 9.1 GM/DL (11.6-15.3) 8.9 GM/DL (11.6-15.3) Hematocrit 27.8 % (35.0-46.0) 27.9 % (35.0-46.0) Mean Corpuscular Volume 96.2 FL (80.0-100.0) 97.2 FL (80.0-100.0) Mean Corpuscular Hemoglobin 31.4 PG (27.0-34.0) 31.0 PG (27.0-34.0) Mean Corpuscular Hemoglobin Concent 32.6 % (32.0-36.0) 31.9 % (32.0-36.0) Red Cell Distribution Width 13.9 % (11.6-17.2) 14.1 % (11.6-17.2) Platelet Count 446 TH/MM3 (150-450) 448 TH/MM3 (150-450) Mean Platelet Volume 8.2 FL (7.0-11.0) 8.3 FL (7.0-11.0) Neutrophils (%) (Auto) 72.8 % (16.0-70.0) 72.3 % (16.0-70.0) Lymphocytes (%) (Auto) 17.2 % (9.0-44.0) 17.5 % (9.0-44.0) Monocytes (%) (Auto) 8.0 % (0.0-8.0) 7.5 % (0.0-8.0) Eosinophils (%) (Auto) 1.3 % (0.0-4.0) 2.1 % (0.0-4.0) Basophils (%) (Auto) 0.7 % (0.0-2.0) 0.6 % (0.0-2.0) Neutrophils # (Auto) 9.5 TH/MM3 (1.8-7.7) 7.6 TH/MM3 (1.8-7.7) Lymphocytes # (Auto) 2.2 TH/MM3 (1.0-4.8) 1.9 TH/MM3 (1.0-4.8) Monocytes # (Auto) 1.0 TH/MM3 (0-0.9) 0.8 TH/MM3 (0-0.9) Eosinophils # (Auto) 0.2 TH/MM3 (0-0.4) 0.2 TH/MM3 (0-0.4) Basophils # (Auto) 0.1 TH/MM3 (0-0.2) 0.1 TH/MM3 (0-0.2) CBC Comment DIFF FINAL DIFF FINAL Differential Comment Blood Urea Nitrogen 21 MG/DL (7-18) 21 MG/DL (7-18) Creatinine 1.20 MG/DL (0.50-1.00) 1.20 MG/DL (0.50-1.00) Random Glucose 158 MG/DL (74-106) 182 MG/DL (74-106) Total Protein 5.2 GM/DL (6.4-8.2) Albumin 1.7 GM/DL (3.4-5.0) Calcium Level 8.0 MG/DL (8.5-10.1) 8.0 MG/DL (8.5-10.1) Alkaline Phosphatase 161 U/L (45-117) Aspartate Amino Transf (AST/SGOT) 73 U/L (15-37) Alanine Aminotransferase (ALT/SGPT) 44 U/L (10-53) Total Bilirubin 0.1 MG/DL (0.2-1.0) Sodium Level 150 MEQ/L (136-145) 150 MEQ/L (136-145) Potassium Level 4.1 MEQ/L (3.5-5.1) 4.1 MEQ/L (3.5-5.1) Chloride Level 114 MEQ/L (98-107) 115 MEQ/L (98-107) Carbon Dioxide Level 30.4 MEQ/L (21.0-32.0) 30.8 MEQ/L (21.0-32.0) Anion Gap 6 MEQ/L (5-15) 4 MEQ/L (5-15) Estimat Glomerular Filtration Rate 45 ML/MIN (>89) 45 ML/MIN (>89) Phenytoin (Dilantin) Level 9.7 MCG/ML (10.0-20.0) 8.7 MCG/ML (10.0-20.0) Stool C. difficile Toxin (PCR) NEGATIVE (NEGATIVE) Stl C. difficile Toxin Epiderm 027 PRESUMPTIVE NEGATIVE Phenobarbital Level 24.1 MCG/ML (15.0-40.0) (Marii Horowitz) Result Diagram: 12/09/17 0420 12/09/17 0420 Microbiology Microbiology Date/Time Source Procedure Growth Status 12/08/17 06:13 Blood Peripheral Aerobic Blood Culture - Preliminary NO GROWTH IN 2 DAYS Resulted 12/08/17 06:13 Blood Peripheral Anaerobic Blood Culture - Preliminary NO GROWTH IN 2 DAYS Resulted 12/08/17 06:05 Blood Peripheral Aerobic Blood Culture - Preliminary NO GROWTH IN 2 DAYS Resulted 12/08/17 06:05 Blood Peripheral Anaerobic Blood Culture - Preliminary NO GROWTH IN 2 DAYS Resulted 12/08/17 06:00 Sputum Nasal Tracheal Aspirate Gram Stain - Final Complete 12/08/17 06:00 Sputum Culture - Final Escherichia Coli Complete 12/08/17 06:09 Urine Catheterized Urine Urine Culture - Final Anna Glabrata Complete Imaging Last Impressions Chest X-Ray 12/08/17 0000 Signed Impressions: Service Date/Time: Friday, December 08, 2017 08:09 - CONCLUSION: 1. Interval removal of left internal jugular central venous line. 2. Mild improvement in pulmonary opacities. Shaquille Haley MD Gall Bladder Ultrasound 12/03/17 0000 Signed Impressions: Service Date/Time: Sunday, December 03, 2017 07:59 - CONCLUSION: 1. Ascites and bilateral pleural effusions. 2. Mildly distended gallbladder without evidence of wall thickening or cholelithiasis. 3. Otherwise unremarkable exam. Boo Cartwright MD Lumbar Puncture Fluoroscopy 12/02/17 0000 Signed Impressions: Service Date/Time: Saturday, December 02, 2017 15:28 - CONCLUSION: Uncomplicated fluoroscopically guided lumbar puncture. Aly Leigh MD Renal Ultrasound [id number] Signed Impressions: Service Date/Time: Wednesday, November 29, 2017 13:16 - CONCLUSION: 1. Both kidneys are sonographically normal without hydronephrosis or nephrolithiasis. 2. Very abnormal appearance of the gallbladder with mural thickening and minimal pericholecystic fluid Dani Titus MD Brain MRI 11/29/17 0000 Signed Impressions: Service Date/Time: Wednesday, November 29, 2017 13:27 - CONCLUSION: 1. Mild diffuse ventriculomegaly. Clinical correlation for normal pressure hydrocephalus is recommended. 2. [id number] periventricular small vessel ischemic white matter demyelination, out of proportion for age. Aly Leigh MD Head CT 11/28/17 0000 Signed Impressions: Service Date/Time: November 15:46 - CONCLUSION: 1. Ventriculomegaly suggesting central cerebral atrophy versus hydrocephalus. Clinical correlation is recommended. 2. No acute infarct, acute hemorrhage, midline shift or extra-axial fluid collections. Dev Christopher MD Procedures 11/29: Orotracheal intubation 11/29: Right chest tube placement secondary to iatrogenic pneumothorax. 11/29: Bronchoscopy 11/29: Left IJ central line placement 11/30: Bronchoscopy . (Marii Horowitz) Assessment and Plan Disease Oriented Problem List: (1) Hyperkalemia (2) Acute renal failure (3) DKA (diabetic ketoacidoses) (4) Altered mental status (5) Metabolic acidosis (6) Hypotension (7) Seizure cerebral (8) Encephalopathy, metabolic (9) NSTEMI (non-ST elevated myocardial infarction) (10) UTI (urinary tract infection) (11) Type 1 diabetes (12) Leukocytosis (13) Respiratory failure (14) Hypertension Symptom Scale: (1) Encephalopathy 0-10 Scale: Unable to quantify (2) Dyspnea 0-10 Scale: Unable to quantify Pertinent Non-Medical Issues Psychosocial:Originally from [facility], moved here to [place] about 3 years ago to be closer to her sister and mother. Her son Jamin lives in [place]. 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 Supported locally by her sister , and significant other León De León. Patient and her sister Evelny take turns helping to care for their mother who is in her 90s. Spiritual:Sikh adonay, attended [employer]. Would appreciate embossing tool setter visits per significant other. Legal:Pt unable to participate due to encephalopathy, not clear she will regain ability to participate. Her sister has been involved in her care and decisions. She also is reported to have one son who lives in [place]. Not known at this time if she has advanced directives or health care surrogate designation. If she does not have advanced directives, then her son or any additional children would be appropriate legal proxy per [place] statutes ( if they wish to serve as such). Ethical issues impacting care: No ethical issues identified. Important Contacts sister Evelyn Obrien at [phone] Son Jamin (in [place]) Significant other León Genet [phone]/ [phone] . Prognosis This patient was initially admitted for altered mental status, findings of DKA. She also suffered acute renal failure, respiratory failure. She were now remains profoundly encephalopathic on mechanical vent at this time unable to medically wean. 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 It is likely she will require tracheostomy and PEG tube to continue aggressive treatment course. . Code Status: Full Code Plan * Legal decision maker:Pt unable to participate due to encephalopathy, not clear she will regain ability to participate. Her sister has been involved in her care and decisions. She also is reported to have one son who lives in [place]. Not known at this time if she has advanced directives or health care surrogate designation. If she does not have advanced directives, then her son or any additional children would be appropriate legal proxy per [place] statutes ( if they wish to serve as such). * Goals: TBD, at this time the family is considering information received and family meeting and are awaiting input from the neurologist and imaging study to make further decisions. * CODE STATUS: Full code by default * SYMPTOMS: --Encephalopathy-admitted with DKA, altered mental status. MRI, CSF etc. negative. Concern for underlying anoxic encephalopathy. Initially was some seizure activity on EEG. Neurology following. Minimal improvement in neurological assessment off of sedation since 12/03. Not withdrawing to noxious stimuli. --Dyspnea-emergently intubated for acute respiratory failure, inability to protect airway. Remains on mechanical vent. Ongoing CPAP trials however due to encephalopathy will likely not protect airway and may be unable to medically extubate, may require tracheostomy for ongoing aggressive treatment and ventilator weaning. --Seizures-she is currently on Cerebyx and phenobarbital. She remains on seizure precautions. Last EEG on 12/07 showed no epileptiform activity. Repeat EEG planned for a.m. * Palliative care will continue to follow during hospital course as condition evolves, to assist patient/decision-maker with understanding of medical conditions, weighing benefits/burdens of treatment options, for clarification of goals of treatment. Additionally will assist with any symptoms of palliative concern . (Marii Horowitz) Attestation To help prompt me to consider important information that might be impacting today's encounter and assessment, information from prior notes written by myself or my colleagues may have been "brought forward" into today's note. My signature on this note, however, is an attestation that I personally performed the exam, history, and/or decision-making noted today, and, unless otherwise indicated, the interactions with patient, family, and staff as well as the review of records all occurred today. I also attest that the listed assessment and stated plan reflect my best clinical judgment today based on the combination of historical information, prior notes, and today's exam/ interactions. When time spent is documented, it refers only to time spent today by the signer, or if indicated, combined time spent today by collaborating physician/nurse practitioner. . (Marii Horowitz) Collaborating MD Comments Chart reviewed. Case discussed with palliative care RN TRANSITIONAL. Above note reviewed and I concur. . (Oren Gan MD) Marii Horowitz Dec 10, 2017 17:35 Oren Gan MD Jan 18, 2018 07:27
--- NOTE | 2017-12-10 17:37 | HHI.CCPN ---
Subjective Remarks/Hospital Course This is a 51-year-old female. Date of admission 11/28/2017. Past medical history includes diabetes mellitus type 1 uncontrolled insulin- dependent with retinopathy on home insulin pump, hypertension, allergic rhinitis and chronic benzodiazepine use. She also has history of breast cancer on raloxifene she originally presented to [facility] ED During the workup, patient was noted to have a blood sugar of 808. Elevated acetone. Sodium 135. Potassium 6.0. Ferritin 2.1. Leukocytosis 25,000. Macrocytic anemia. UA negative for infectious etiology. She was bolused with 3 L of 0.9% NaCl IV fluid bolus. She is received 3 ampules of sodium bicarbonate and 1 g calcium gluconate. Chest x-ray post procedure revealed the CT scan of the head is read by the radiologist as ventriculomegaly but otherwise no acute findings. 11/29: Patient had nonrebreather off all night. PTX now 8 mm. Yells "Help me " "I don't know" Gap has closed, will transition back to SQ insulin if able to pass swallow. Replacing lytes. 11/30: Patient opens eyes to voice. Leftward gaze. Frequent blinking. Withdraws to stimulation bilateral lower extremities. T-max 99.5. Remains on norepinephrine and phenylephrine drips. MRI brain revealed ventriculomegaly. No acute signs of CVA. Echocardiogram EF 40%. 12/01: Afebrile. Patient remains off sedation approximately 24 hours nonresponsive. EEG in process. BAL revealed gram-negative rods the patient continues on Zosyn. The patient remains on vasopressors norepinephrine, vasopressin, and phenylephrine. Versed infusion restarted secondary to seizure activity noted on repeat EEG this a.m.. 12/02: Afebrile. The patient is scheduled for lumbar puncture this a.m., INR 1.0 patient has been off subcu heparin approximately 3 days. The patient continues on Versed and fentanyl infusions to maintain ventilator synchrony and avoidance of subclinical seizures which were noted on the EEG yesterday. The patient continues on multiple vasopressors to include norepinephrine and phenylephrine and vasopressin. Vasopressin currently being weaned off. The patient continues to have persistent leukocytosis though it is slightly downtrending plan for ID consult today appreciate recommendations. Bronchial washings resulted E. coli, currently patient continues on Zosyn. Patient was noted to have a positive fluid balance yesterday the patient received 20 mg of Lasix with adequate diuresis the patient noted to have a sodium level slightly decreased at 135 IV fluids mixed in 0.9 normal saline. 12/03: No acute events overnight lumbar puncture performed yesterday results pending. Dilantin level therapeutic. Phenobarbital level pending. Patient off vasopressin 24 hours. Phenylephrine currently being weaned off. Patient noted to be anemic 1 unit packed cells will be transfused today no pneumothorax chest tube now placed to waterseal today. 12/04: T-max 99.4. Repeat EEG performed today. Patient now withdrawing to pain 4 extremities, and open eyes to painful stimulus. Patient noted to move bilateral lower extremities 1 this shift. Patient tolerating tube feeds, overbreathing vent will begin CPAP trials in the a.m. if clinically stable. Phenylephrine completely discontinued overnight. Norepinephrine has been decreased to 3 mics/min. hemoglobin stable. 12/05: Afebrile. Patient was weaned off of norepinephrine last p.m.. The patient has been off sedation for greater than 48 hours, no change in neurological status opens eyes to deep stimulation, moves extremities 4 withdrawing to painful stimuli. CPAP trials initiated this a.m. the patient tolerated CPAP for approximately 6.5 hours. Chest x-ray remains unchanged no pneumo thorax, plan for removal of chest tube this evening. 12/06 No events overnight. On no sedation. Afebrile. unresponsive s/p removal chest tube yesterday.. 12/07 versed drip off since 12/04.. Eyes open to noxious stimuli, spontaneously moved R hand, withdraws x4. Temp max 99.3. WBC 11.2 today. Remains off pressors. On CPAP 05/23 and tolerating Subjective: 12/08. Temp max 100.4 overnight. Blood, urine, sputum cultures were sent. White blood cell count 13 this morning. Blood pressure was down to 84/46 with map of 56 this morning. Diuresed nearly 4 L yesterday with Lasix 40 IV q12, creatinine increased today. Tolerating tube feeds. Liquid stool x3 overnight. Apneic during multiple attempts at CPAP this morning. No neuro change. EEG bilateral slowing. Bihemispheric abnormalities. No epileptiform features 12/09: Remains encephalopathic, orally intubated on mechanical ventilation. Tolerating tube feeds. Not on any sedation. 12/10: Remains encephalopathic, orally intubated on mechanical ventilation. Tolerating tube feeds. Minimal eye opening with painful stimuli however extremely poor gag response. Objective Vital Signs Date Time Temp Pulse Resp B/P (MAP) Pulse Ox O2 Delivery O2 Flow Rate FiO2 12/10/17 14:00 100 40 12/10/17 08:01 92 23 146/73 (97) 12/10/17 08:00 Mechanical Ventilator Bi-Pap 12/10/17 04:01 99.2 12/09/17 19:30 2.00 Intake and Output 12/10/17 12/10/17 12/11/17 08:00 16:00 00:00 Intake Total 150 ml Output Total 1100 ml Balance -1100 ml 150 ml Result Diagram: 12/09/17 0420 12/09/17 0420 Other Results Microbiology Date/Time Source Procedure Growth Status 12/08/17 06:00 Sputum Nasal Tracheal Aspirate Gram Stain - Final Complete 12/08/17 06:00 Sputum Culture - Final Escherichia Coli Complete 12/08/17 06:09 Urine Catheterized Urine Urine Culture - Final Anna Glabrata Complete Imaging Last Impressions Chest X-Ray 12/06/17 0600 Signed Impressions: Service Date/Time: Wednesday, December 06, 2017 04:52 - CONCLUSION: Improvement in the right consolidation. No change in left effusion and left consolidation. Charlie Gardner Jr., MD Gall Bladder Ultrasound 12/03/17 0000 Signed Impressions: Service Date/Time: Sunday, December 03, 2017 07:59 - CONCLUSION: 1. Ascites and bilateral pleural effusions. 2. Mildly distended gallbladder without evidence of wall thickening or cholelithiasis. 3. Otherwise unremarkable exam. Boo Cartwright MD Lumbar Puncture Fluoroscopy 12/02/17 0000 Signed Impressions: Service Date/Time: Saturday, December 02, 2017 15:28 - CONCLUSION: Uncomplicated fluoroscopically guided lumbar puncture. Aly Leigh MD Renal Ultrasound 11/29/17 1656 Signed Impressions: Service Date/Time: Wednesday, November 29, 2017 13:16 - CONCLUSION: 1. Both kidneys are sonographically normal without hydronephrosis or nephrolithiasis. 2. Very abnormal appearance of the gallbladder with mural thickening and minimal pericholecystic fluid Dani Titus MD Brain MRI 11/29/17 0000 Signed Impressions: Service Date/Time: Wednesday, November 29, 2017 13:27 - CONCLUSION: 1. Mild diffuse ventriculomegaly. Clinical correlation for normal pressure hydrocephalus is recommended. 2. [id number] periventricular small vessel ischemic white matter demyelination, out of proportion for age. Aly Leigh MD Head CT 11/28/17 0000 Signed Impressions: Service Date/Time: November 15:46 - CONCLUSION: 1. Ventriculomegaly suggesting central cerebral atrophy versus hydrocephalus. Clinical correlation is recommended. 2. No acute infarct, acute hemorrhage, midline shift or extra-axial fluid collections. Dev Christopher MD Procedures 12/02-planned lumbar puncture Objective Remarks GENERAL: 61-year-old female critically ill currently orotracheally intubated SKIN: Warm and dry. No rash HEAD: Atraumatic. Normocephalic. EYES: Gaze conjugate. Pupils equal and round about 4 mm and reactive to 2 mm bilaterally. No scleral icterus. No injection. Scleral edema improved. ENT: No nasal bleeding or discharge. Mucous membranes pink and moist NECK: Trachea midline. No JVD. CARDIOVASCULAR: RRR. . No murmur RESPIRATORY: Orally intubated on mechanical ventilation, good air entry bilaterally, no wheezing or crackles GASTROINTESTINAL: NGT L nare with tube feeds running. Abdomen soft, non-tender, nondistended. Bowel sounds present. MUSCULOSKELETAL: Edema improved, ~ 1+ of hands and ble. NEUROLOGICAL: Pupils reactive as per above + cough + gag. Eyes open to deep central noxious stimuli. Withdraws with all extremities. Date of Insertion: Nov 28, 2017 Line: Central Venous Catheter Side: Left Location: Internal, Jugular A/P Assessment and Plan Neuro/Psych: Acute encephalopathy secondary to diabetic ketoacidosis Anxiety disorder NOS Benzodiazepine use Off sedation since 12/04. Neurology Dr. Neville Acetaminophen 650 mg by tube every 6 hours as needed fever CT brain 11/28 revealed Ventriculomegaly suggesting central cerebral atrophy versus hydrocephalus. Clinical correlation is recommended. No acute infarct, acute hemorrhage, midline shift or extra-axial fluid collections. She is on amitriptyline 10 mg daily at home. This has been held UDS negative MRI brain 11/29 revealed mild to moderate ventriculomegaly. EEG - 12/07 bihemispheric slowing. No epileptiform features. EEG 11/28- bihemispheric slowing with some left frontocentral sharp waves and phase reversal suggesting an epileptiform abnormality and possible structural lesion in this region. No ictal pattern present. 11/30 levetiracetam 500 mg IV every 12 hours after 1 g bolus, Keppra discontinued 12/05 per neurology Neurology -Dr. Neville, on Phenobarb 65mg Q8 (level was 15 on 12/06), Cerebyx 200mg/PE Q12. Phenytoin level 9.7, Albumin corrected 22. Discussed with Dr. Neville -stopping phenobarbital on 12/10. 12/02 Ophthalmology -no eye infection Lacri-Lube applied for scleral edema 12/02-lumbar puncture-negative. CSF HSV negative 12/03-cortisol level 17 ammonia level 22 Continue to hold sedation. We will repeat MRI brain and EEG in view of extremely poor neurologic status. CV: History of hypertension Shock, resolved Elevated troponin Acute systolic heart failure ejection fraction 40% NSTEMI cardiomyopathy Monitor HR and BP keep MAP>65mmHg on atorvastatin 10 mg by tube daily Continue aspirin 81 mg by tube daily 2D echocardiogram revealed EF around 40%. LV increased size. Septal hypokinesis. 12/03- Cardiology has signed off Resp: Acute hypoxemic respiratory failure Hemoptysis-resolved Tobacco abuse/ongoing Iatrogenic PTX status post chest tube placement [facility] 16-->12 //08/23/39, Daily SBT. Tolerating CPAP 12/07, mental status prevents extubation at this time. Today, apneic during CPAP trials. Decreased resp rate to 12. Intubated 11/29 Mechanical ventilation day #11. Hold off a couple more days to see if she awakes off sedation, may need trach later this week. Dr. Munoz called patients sister, Evelyn, to update her about this but there was no answer. Ventilator bundle Albuterol/ipratropium aerosols every 6 hours with albuterol aerosols every 2 hours as needed dyspnea 12/03 Right chest tube in placed to waterseal 11/29 Status post chest tube placement see documentation, removed 12/05. Status post bronchoscopy 11/29. CXR 12/07-bilateral pleural effusion, RLL opacity may be worse. F/u CXR GI: Moderate protein energy malnutrition Glucerna 1.5, change goal rate to 40 mL/h per nutrition recommendations. Change to famotidine for GI prophylaxis Docusate sodium/senna 1 tablet twice daily for bowel regimen 12/03 gallbladder ultrasound -gallbladder mildly distended without evidence of wall thickening or cholelithiasis. There is ascites and pleural effusions. Continue multivitamin/thiamine. change thiamine to via og FEN/RENAL: BRIELLE- resolved Hypernatremia Monitor renal function, I/O's, electrolytes replacement per protocol. Free water 250ml Qq6 hours. Creatinine increased, edema down, hold lasix. Renal ultrasound revealed no medical renal disease. Endo: Insulin-dependent diabetes mellitus type 1 uncontrolled Diabetic ketoacidosis - resolved Originally, patient received 3 L normal saline in the ED along with 3 refills and bicarbonate, 1 ampule of calcium gluconate. Beta hydroxybutyrate cleared 11/29 Insulin pump was disconnected 11/28. According to sister Evelyn Obrien, patient had received a new insulin pump within the past 48 hours. She has no history of DKA in the past to her knowledge TSH 0.38 Continue SSI Novulog medium protocol with accucheck every 4 hours maintain euglycemia Levemir 7 q12 Heme: Leukocytosis- Resolved Macrocytic anemia Monitor CBC daily. Follow trends 12/03 transfused 1 unit of packed red blood cells ID: Community-acquired versus aspiration Persistent leukocytosis BC x2, UA (-) inf A/B negative 11/29 S/P bronchoscopy with sample sent from left lower lobe 11/29 Sputum (BAL)-E.coli, pansensitive ID is following, Dr. Mayorga On zosyn 12/03. Vancomycin has been discontinued 12/06 per ID 12/02-lumbar puncture-negative Access PIV in place Left IJ CVL placed 11/29-12/07. Prophylaxis -GI -famotidine for stress ulcer prophylaxis ( shortage pantoprazole)nursing -DVT -SCD/continue heparin SQ Dr. Munoz called patient's sister, Evelyn Gramajo, to update 12/08. No answer. RN states she hasn't visited in several days. We will consult palliative care to assist with deciding goals of therapy as patient appears to have significant encephalopathy, possibly anoxic brain injury. Discussed with patient's family at bedside in length on 12/10 including patient' s son who arrived from [place] as well as sister. Explained encephalopathy and possible contributing factors. Discussed possible need for tracheostomy and PEG tube placement. Family voiced understanding and were agreeable with plan of care. Discussed with Dr. Neville who agrees with obtaining EEG and repeating MRI brain and will be discussing neurologic prognosis with patient's son tomorrow following review of those results. Condition remains critical. Time spent on critical care excluding procedures 30 minutes. Reji Rosenberg MD Dec 10, 2017 17:37
[2017-12-10] MEDS: ATORVASTATIN 10 MG TAB PO SCH (21:04)
[2017-12-10] MEDS: RESP: ALBUTEROL 2.5 MG/3 ML NEB (PRN) INH (21:33)
[2017-12-11] VITALS (40 sets, daily range): BP systolic 90–140; BP diastolic 54–86; PULSE 74–96; RESP 11–30; TEMP 98–98.9; O2SAT 97–100
[2017-12-11] MEDS: INSULIN ASPART SUPPLEMENTAL SCALE SQ SCH ×6 (00:18→20:16)
[2017-12-11] MEDS: HEPARIN SODIUM - SQ 10,000 UNITS/ML VIAL SQ SCH ×3 (01:40→17:45)
[2017-12-11] MEDS: FREE WATER G-TUBE SCH ×4 (03:00→21:00)
[2017-12-11] MEDS: RESP: ALBUTEROL 2.5 MG/3 ML NEB (PRN) INH ×3 (03:21→20:31)
[2017-12-11] MEDS: CHLORHEXIDINE GLUCONATE 2 % 1 PACK (2 CLOTHS) TOP SCH (03:54)
[2017-12-11 05:19] LABS: CHLORIDE 109 MEQ/L (98-107); SODIUM (NA) 142 MEQ/L (136-145)
[2017-12-11 05:20] LABS: AUTOMATED NEUTROPHIL # 10.6 TH/MM3 (1.8-7.7); BASOPHIL # 0.1 TH/MM3 (0-0.2); BASOPHIL % 0.4 % (0.0-2.0); EOSINOPHIL # 0.2 TH/MM3 (0-0.4); EOSINOPHIL % 1.8 % (0.0-4.0); HEMATOCRIT 28.9 % (35.0-46.0); HEMOGLOBIN 9.7 GM/DL (11.6-15.3); LYMPH % 10.7 % (9.0-44.0); LYMPHOCYTE # 1.4 TH/MM3 (1.0-4.8); MEAN CELL VOLUME 96.7 FL (80.0-100.0); MEAN CORPUSCULAR HEMOGLOBIN 32.3 PG (27.0-34.0); MEAN CORPUSCULAR HGB CONC 33.5 % (32.0-36.0); MEAN PLATELET VOLUME 8.6 FL (7.0-11.0); MONO % 5.6 % (0.0-8.0); MONOCYTE # 0.7 TH/MM3 (0-0.9); NEUT % 81.5 % (16.0-70.0); PLATELET COUNT 468 TH/MM3 (150-450); RED BLOOD COUNT 2.99 MIL/MM3 (4.00-5.30); RED CELL DISTRIBUTION WIDTH 14.6 % (11.6-17.2)
[2017-12-11 05:22] LABS: CALCIUM 8.1 MG/DL (8.5-10.1)
[2017-12-11 05:23] LABS: ALBUMIN 1.7 GM/DL (3.4-5.0); BICARBONATE 28.7 MEQ/L (21.0-32.0); BLOOD UREA NITROGEN 21 MG/DL (7-18); GLUCOSE,RANDOM 216 MG/DL (74-106)
[2017-12-11 05:42] LABS: ALKALINE PHOSPHATASE 558 U/L (45-117); ALT (GPT) 194 U/L (10-53); AST (GOT) 390 U/L (15-37); CREATININE 0.75 MG/DL (0.50-1.00); GLOMERULAR FILTRATION RATE 78 ML/MIN (>89); TOTAL BILIRUBIN ADULT 0.2 MG/DL (0.2-1.0); TOTAL PROTEIN 5.6 GM/DL (6.4-8.2)
[2017-12-11] MEDS: FOSPHENYTOIN SODIUM 100 MG PE/2 ML VIAL IV SCH ×2 (08:26→22:20)
[2017-12-11] MEDS: CHLORHEXIDINE 0.12% (ORAL KIT) 15 ML CUP MT SCH ×2 (08:27→20:17)
[2017-12-11] MEDS: INSULIN DETEMIR 100 UNITS/ML VIAL SQ SCH ×2 (08:28→20:16)
[2017-12-11] MEDS: CEFEPIME INJ 2,000 MG in SODIUM CHLORIDE 0.9% INJ 100 ML IV SCH (08:32)
--- NOTE | 2017-12-11 08:37 | HHI.CCPN ---
Subjective Remarks/Hospital Course This is a 51-year-old female. Date of admission 11/28/2017. Past medical history includes diabetes mellitus type 1 uncontrolled insulin- dependent with retinopathy on home insulin pump, hypertension, allergic rhinitis and chronic benzodiazepine use. She also has history of breast cancer on raloxifene she originally presented to [facility] ED During the workup, patient was noted to have a blood sugar of 808. Elevated acetone. Sodium 135. Potassium 6.0. Ferritin 2.1. Leukocytosis 25,000. Macrocytic anemia. UA negative for infectious etiology. She was bolused with 3 L of 0.9% NaCl IV fluid bolus. She is received 3 ampules of sodium bicarbonate and 1 g calcium gluconate. Chest x-ray post procedure revealed the CT scan of the head is read by the radiologist as ventriculomegaly but otherwise no acute findings. 11/29: Patient had nonrebreather off all night. PTX now 8 mm. Yells "Help me " "I don't know" Gap has closed, will transition back to SQ insulin if able to pass swallow. Replacing lytes. 11/30: Patient opens eyes to voice. Leftward gaze. Frequent blinking. Withdraws to stimulation bilateral lower extremities. T-max 99.5. Remains on norepinephrine and phenylephrine drips. MRI brain revealed ventriculomegaly. No acute signs of CVA. Echocardiogram EF 40%. 12/01: Afebrile. Patient remains off sedation approximately 24 hours nonresponsive. EEG in process. BAL revealed gram-negative rods the patient continues on Zosyn. The patient remains on vasopressors norepinephrine, vasopressin, and phenylephrine. Versed infusion restarted secondary to seizure activity noted on repeat EEG this a.m.. 12/02: Afebrile. The patient is scheduled for lumbar puncture this a.m., INR 1.0 patient has been off subcu heparin approximately 3 days. The patient continues on Versed and fentanyl infusions to maintain ventilator synchrony and avoidance of subclinical seizures which were noted on the EEG yesterday. The patient continues on multiple vasopressors to include norepinephrine and phenylephrine and vasopressin. Vasopressin currently being weaned off. The patient continues to have persistent leukocytosis though it is slightly downtrending plan for ID consult today appreciate recommendations. Bronchial washings resulted E. coli, currently patient continues on Zosyn. Patient was noted to have a positive fluid balance yesterday the patient received 20 mg of Lasix with adequate diuresis the patient noted to have a sodium level slightly decreased at 135 IV fluids mixed in 0.9 normal saline. 12/03: No acute events overnight lumbar puncture performed yesterday results pending. Dilantin level therapeutic. Phenobarbital level pending. Patient off vasopressin 24 hours. Phenylephrine currently being weaned off. Patient noted to be anemic 1 unit packed cells will be transfused today no pneumothorax chest tube now placed to waterseal today. 12/04: T-max 99.4. Repeat EEG performed today. Patient now withdrawing to pain 4 extremities, and open eyes to painful stimulus. Patient noted to move bilateral lower extremities 1 this shift. Patient tolerating tube feeds, overbreathing vent will begin CPAP trials in the a.m. if clinically stable. Phenylephrine completely discontinued overnight. Norepinephrine has been decreased to 3 mics/min. hemoglobin stable. 12/05: Afebrile. Patient was weaned off of norepinephrine last p.m.. The patient has been off sedation for greater than 48 hours, no change in neurological status opens eyes to deep stimulation, moves extremities 4 withdrawing to painful stimuli. CPAP trials initiated this a.m. the patient tolerated CPAP for approximately 6.5 hours. Chest x-ray remains unchanged no pneumo thorax, plan for removal of chest tube this evening. 12/06 No events overnight. On no sedation. Afebrile. unresponsive s/p removal chest tube yesterday.. 12/07 versed drip off since 12/04.. Eyes open to noxious stimuli, spontaneously moved R hand, withdraws x4. Temp max 99.3. WBC 11.2 today. Remains off pressors. On CPAP 05/23 and tolerating Subjective: 12/08. Temp max 100.4 overnight. Blood, urine, sputum cultures were sent. White blood cell count 13 this morning. Blood pressure was down to 84/46 with map of 56 this morning. Diuresed nearly 4 L yesterday with Lasix 40 IV q12, creatinine increased today. Tolerating tube feeds. Liquid stool x3 overnight. Apneic during multiple attempts at CPAP this morning. No neuro change. EEG bilateral slowing. Bihemispheric abnormalities. No epileptiform features 12/09: Remains encephalopathic, orally intubated on mechanical ventilation. Tolerating tube feeds. Not on any sedation. 12/10: Remains encephalopathic, orally intubated on mechanical ventilation. Tolerating tube feeds. Minimal eye opening with painful stimuli however extremely poor gag response. 12/11: Remains encephalopathic, orally intubated on mechanical ventilation. Tolerating tube feeds. Awaiting MRI/ EEG. Objective Vital Signs Date Time Temp Pulse Resp B/P (MAP) Pulse Ox O2 Delivery O2 Flow Rate FiO2 12/11/17 07:10 98 40 12/11/17 06:01 88 19 103/70 (81) 12/11/17 04:01 98.9 12/10/17 20:00 Mechanical Ventilator Bi-Pap 12/09/17 19:30 2.00 Intake and Output 12/11/17 12/11/17 12/12/17 08:00 16:00 00:00 Intake Total 980 ml Output Total 550 ml Balance 430 ml Result Diagram: 12/11/17 0415 12/11/17 0415 Imaging Last Impressions Chest X-Ray 12/06/17 0600 Signed Impressions: Service Date/Time: Wednesday, December 06, 2017 04:52 - CONCLUSION: Improvement in the right consolidation. No change in left effusion and left consolidation. Charlie Gardner Jr., MD Gall Bladder Ultrasound 12/03/17 0000 Signed Impressions: Service Date/Time: Sunday, December 03, 2017 07:59 - CONCLUSION: 1. Ascites and bilateral pleural effusions. 2. Mildly distended gallbladder without evidence of wall thickening or cholelithiasis. 3. Otherwise unremarkable exam. Boo Cartwright MD Lumbar Puncture Fluoroscopy 12/02/17 0000 Signed Impressions: Service Date/Time: Saturday, December 02, 2017 15:28 - CONCLUSION: Uncomplicated fluoroscopically guided lumbar puncture. Aly Leigh MD Renal Ultrasound 11/29/17 1656 Signed Impressions: Service Date/Time: Wednesday, November 29, 2017 13:16 - CONCLUSION: 1. Both kidneys are sonographically normal without hydronephrosis or nephrolithiasis. 2. Very abnormal appearance of the gallbladder with mural thickening and minimal pericholecystic fluid Dani Titus MD Brain MRI 11/29/17 0000 Signed Impressions: Service Date/Time: Wednesday, November 29, 2017 13:27 - CONCLUSION: 1. Mild diffuse ventriculomegaly. Clinical correlation for normal pressure hydrocephalus is recommended. 2. [id number] periventricular small vessel ischemic white matter demyelination, out of proportion for age. Aly Leigh MD Head CT 11/28/17 0000 Signed Impressions: Service Date/Time: November 15:46 - CONCLUSION: 1. Ventriculomegaly suggesting central cerebral atrophy versus hydrocephalus. Clinical correlation is recommended. 2. No acute infarct, acute hemorrhage, midline shift or extra-axial fluid collections. Dev Christopher MD Procedures 12/02-planned lumbar puncture Objective Remarks GENERAL: 61-year-old female critically ill currently orotracheally intubated SKIN: Warm and dry. No rash HEAD: Atraumatic. Normocephalic. EYES: Gaze conjugate. Pupils equal and round about 4 mm and reactive to 2 mm bilaterally. No scleral icterus. No injection. Scleral edema improved. ENT: No nasal bleeding or discharge. Mucous membranes pink and moist NECK: Trachea midline. No JVD. CARDIOVASCULAR: RRR. . No murmur RESPIRATORY: Orally intubated on mechanical ventilation, good air entry bilaterally, no wheezing or crackles GASTROINTESTINAL: NGT L nare with tube feeds running. Abdomen soft, non-tender, nondistended. Bowel sounds present. MUSCULOSKELETAL: Edema improved, ~ 1+ of hands and ble. NEUROLOGICAL: Pupils reactive as per above + cough + gag. Eyes open to deep central noxious stimuli. Withdraws with all extremities. Date of Insertion: Nov 28, 2017 Line: Central Venous Catheter Side: Left Location: Internal, Jugular A/P Assessment and Plan Neuro/Psych: Acute encephalopathy secondary to diabetic ketoacidosis Anxiety disorder NOS Benzodiazepine use Off sedation since 12/04. Neurology Dr. Neville Acetaminophen 650 mg by tube every 6 hours as needed fever CT brain 11/28 revealed Ventriculomegaly suggesting central cerebral atrophy versus hydrocephalus. Clinical correlation is recommended. No acute infarct, acute hemorrhage, midline shift or extra-axial fluid collections. She is on amitriptyline 10 mg daily at home. This has been held UDS negative MRI brain 11/29 revealed mild to moderate ventriculomegaly. EEG - 12/07 bihemispheric slowing. No epileptiform features. EEG 11/28- bihemispheric slowing with some left frontocentral sharp waves and phase reversal suggesting an epileptiform abnormality and possible structural lesion in this region. No ictal pattern present. 11/30 levetiracetam 500 mg IV every 12 hours after 1 g bolus, Keppra discontinued 12/05 per neurology Neurology -Dr. Neville, on Phenobarb 65mg Q8 (level was 15 on 12/06), Cerebyx 200mg/PE Q12. Phenytoin level 9.7, Albumin corrected 22. Discussed with Dr. Neville -stopping phenobarbital on 12/10. 12/02 Ophthalmology -no eye infection Lacri-Lube applied for scleral edema 12/02-lumbar puncture-negative. CSF HSV negative 12/03-cortisol level 17 ammonia level 22 Continue to hold sedation. Awaiting repeat MRI brain and EEG in view of extremely poor neurologic status. CV: History of hypertension Shock, resolved Elevated troponin Acute systolic heart failure ejection fraction 40% NSTEMI cardiomyopathy Monitor HR and BP keep MAP>65mmHg on atorvastatin 10 mg by tube daily Continue aspirin 81 mg by tube daily 2D echocardiogram revealed EF around 40%. LV increased size. Septal hypokinesis. 12/03- Cardiology has signed off Resp: Acute hypoxemic respiratory failure Hemoptysis-resolved Tobacco abuse/ongoing Iatrogenic PTX status post chest tube placement [facility] 16-->12 /450/08/23/39, Daily SBT. Tolerating CPAP 12/07, mental status prevents extubation at this time. Today, apneic during CPAP trials. Decreased resp rate to 12. Intubated 11/29 Mechanical ventilation day #11. Hold off a couple more days to see if she awakes off sedation, may need trach later this week. Dr. Munoz called patients sister, Evelyn, to update her about this but there was no answer. Ventilator bundle Albuterol/ipratropium aerosols every 6 hours with albuterol aerosols every 2 hours as needed dyspnea 12/03 Right chest tube in placed to waterseal 11/29 Status post chest tube placement see documentation, removed 12/05. Status post bronchoscopy 11/29. CXR 12/07-bilateral pleural effusion, RLL opacity may be worse. F/u CXR GI: Moderate protein energy malnutrition Glucerna 1.5, change goal rate to 40 mL/h per nutrition recommendations. Change to famotidine for GI prophylaxis Docusate sodium/senna 1 tablet twice daily for bowel regimen 12/03 gallbladder ultrasound -gallbladder mildly distended without evidence of wall thickening or cholelithiasis. There is ascites and pleural effusions. Continue multivitamin/thiamine. change thiamine to via og FEN/RENAL: BRIELLE- resolved Hypernatremia Monitor renal function, I/O's, electrolytes replacement per protocol. Free water 250ml Qq6 hours. Creatinine increased, edema down, hold lasix. Renal ultrasound revealed no medical renal disease. Endo: Insulin-dependent diabetes mellitus type 1 uncontrolled Diabetic ketoacidosis - resolved Originally, patient received 3 L normal saline in the ED along with 3 refills and bicarbonate, 1 ampule of calcium gluconate. Beta hydroxybutyrate cleared 11/29 Insulin pump was disconnected 11/28. According to sister Evelyn Obrien, patient had received a new insulin pump within the past 48 hours. She has no history of DKA in the past to her knowledge TSH 0.38 Continue SSI Novulog medium protocol with accucheck every 4 hours maintain euglycemia Levemir 7 q12 Heme: Leukocytosis- Resolved Macrocytic anemia Monitor CBC daily. Follow trends 12/03 transfused 1 unit of packed red blood cells ID: Community-acquired versus aspiration Persistent leukocytosis BC x2, UA (-) inf A/B negative 11/29 S/P bronchoscopy with sample sent from left lower lobe 11/29 Sputum (BAL)-E.coli, pansensitive ID is following, Dr. Childs On cefepime/ oral fluconazole Vancomycin has been discontinued 12/06 per ID 12/02-lumbar puncture-negative Access PIV in place Left IJ CVL placed 11/29-12/07. Prophylaxis -GI -famotidine for stress ulcer prophylaxis ( shortage pantoprazole)nursing -DVT -SCD/continue heparin SQ Dr. Munoz called patient's sister, Evelyn Gramajo, to update 12/08. No answer. RN states she hasn't visited in several days. We will consult palliative care to assist with deciding goals of therapy as patient appears to have significant encephalopathy, possibly anoxic brain injury. Discussed with patient's family at bedside in length on 12/10 including patient' s son who arrived from [place] as well as sister. Explained encephalopathy and possible contributing factors. Discussed possible need for tracheostomy and PEG tube placement. Family voiced understanding and were agreeable with plan of care. Discussed with Dr. Neville on 12/10 who agrees with obtaining EEG and repeating MRI brain and will be discussing neurologic prognosis with patient's son tomorrow following review of those results. Condition remains critical. Time spent on critical care excluding procedures 30 minutes. Reji Rosenberg MD Dec 11, 2017 08:37
[2017-12-11] MEDS: SODIUM CHLORIDE 0.9% FLUSH 10 ML FLUSH IV FLUSH SCH ×3 (08:39→22:20)
[2017-12-11] MEDS: ASPIRIN 81 MG CHEW TAB CHEW SCH (08:41)
[2017-12-11] MEDS: FAMOTIDINE 20 MG TAB NG SCH ×2 (08:41→22:20)
[2017-12-11] MEDS: MULTIVITAMIN TAB PO SCH (08:41)
[2017-12-11] MEDS: THIAMINE HCL 100 MG TAB OG-TUBE SCH (08:41)
[2017-12-11] MEDS: ARTIFICIAL TEARS OPTH OINT 3.5 APPLIC/3.5 GM TUBO EACH EYE SCH ×4 (08:42→22:14)
[2017-12-11] MEDS ORDERED: FLUCONAZOLE 200 MG TAB PO SCH (09:00)
[2017-12-11] MEDS ORDERED: FLUCONAZOLE 200 MG TAB PO ONE (11:30)
--- NOTE | 2017-12-11 13:20 | RADRPT ---
EXAM DATE/TIME: 12/11/2017 11:12 [facility] COMPARISON: MRI BRAIN W/O CONTRAST, November 29, 2017, 13:27. INDICATIONS : Seizures. Non responsive. Anoxia. MEDICAL HISTORY : Diabetes mellitus type 1. SURGICAL HISTORY : Cataracts. Insulin pump. ENCOUNTER: Subsequent ACUITY: 2 weeks PAIN SCORE: Nonresponsive. LOCATION: head. TECHNIQUE: Multiplanar, multisequence MRI of the brain was performed without contrast. FINDINGS: CEREBRUM: Mild, symmetric ventricular prominence. Some faint effusion restriction along the high parietal conve xity to the right. No mass lesions. No extraaxial fluid collections are seen. The pituitary gland a nd suprasellar cistern are normal in configuration. WHITE MATTER: Mild periventricular and scattered deep white matter tracts small vessel ischemic demyelination. POSTERIOR FOSSA: The cerebellum and brainstem are intact. The 4th ventricle is midline. The cerebellopontine angle is unremarkable. The cerebellar tonsils are normal in position. DIFFUSION IMAGING: Some diffusion restriction predominately around the high right parietal convexity. Minimal diffusion restriction in the left high parietal convexity. EXTRACRANIAL: The visualized portions of the orbits are unremarkable. There is some chronic sinus disease in the sp henoids bilaterally. Fluid in the mastoid air cells as well. CONCLUSION: 1. Faint diffusion restriction predominately along the high right parietal convexity with minimal dif fusion restriction on the left. Pattern is somewhat unusual for anoxia with the asymmetry. Possible e mbolic event. CTA of the cervical and intracranial vessels to be performed for further characterizati on. 2. Chronic changes with some periventricular small vessel ischemic demyelination. 3. Mild ventricular prominence. In the appropriate clinical setting, findings could represent normal pressure hydrocephalus. 4. Bilateral mastoiditis. Mild chronic sinus disease in the sphenoid bilaterally. Dani Titus MD on December 11, 2017 at 12:44 Board Certified Radiologist. This report was verified electronically.
--- NOTE | 2017-12-11 14:55 | MG ---
cc: Bacilio Louise MD, PhD TEST NUMBER: [id number] TECHNIQUE: A 17-channel EEG. DESCRIPTION: The background rhythm reveals generalized slowing in theta and delta frequencies ranging from 3-5 Hz. Amplitude is 10-20 microvolts. There appears to be more pronounced slowing over the right hemisphere than over the left hemisphere. Occasional muscle artifact seen. There are no epileptiform discharges. INTERPRETATION: Abnormal study consistent with a severe encephalopathy. There is more prominent slowing over the right hemisphere. Therefore, recommend correlation with imaging study to rule out a structural lesion in that area. Bacilio Louise MD, PhD WAGNER/LILLIAN , 02:39 PM , 02:54 PM
--- NOTE | 2017-12-11 16:16 | HHI.HCPN ---
Reason for visit a. To assist with evaluation and management of symptoms including: dyspnea, encephalopathy, seizures. b. To assist medical decision maker(s) with: better understanding of current medical conditions; weighing benefits/burdens of medical treatment options; making medical treatment decisions. (Marii Horowitz) Subjective/Interval History Patient seen to follow-up on symptoms of dyspnea, encephalopathy, seizures. Patient is currently intubated, not sedated since 12/03. She was intubated for airway protection 11/29. She did not tolerate CPAP trials well today, having 6 episodes of apnea in an hour, which exceeded the ventilator limit of 30 seconds , after which she was placed back on ventilator support with rate. She is coughing with the respiratory treatment but she is not overbreathing the vent at this evaluation. Patient is unresponsive to noxious stimuli and did not withdraw to either local or central pain triggers. She does not blink to threat or responding to command , but today resisted removing the eyelid for pupil exam. She is seen to spontaneously move her hand from time to time or open her eyes but does not focus or track. She shows no recognition of family or surroundings. MRI shows faint diffusion restriction predominantly along the high parietal right convexity with minimal diffusion restriction on the left, pattern somewhat unusual for him not see with the asymmetry, possible embolic event. Radiology recommending CTA of cervical and intracranial vessels to be performed for further characterization. To be determined by Dr. Neville's evaluation of the MRI films and clinical evaluation. EEGs have been consistently abnormal, the most recent showing no epileptiform features. She is on Cerebyx, but phenobarbital was stopped today to evaluate response. She was previously on Keppra but that was discontinued 12/05. She remains on seizure precautions. EEG was repeated this morning showing an abnormal study consistent with severe encephalopathy, more prominent slowing over the right hemisphere. Correlation with an imaging study to rule out a structural lesion in that area has been recommended. There has been a newly seen increase in transaminases today of uncertain significance. . Family/friend interactions Spoke with patient's sister at bedside. Patient's son has gone to his grandmother's home to rest but will plan to be in later. Updated sister as to the MRI opinion and that further interpretation would require evaluation by the neurologist to clarify findings. EEG has now been read and indicates an abnormal study consistent with severe encephalopathy with more prominent slowing over the right hemisphere and correlation with an imaging study has been recommended by the reading neurologist. Dr. Neville's office has been notified that the imaging study is available for review. . (Marii Horowitz) Advance Directives Advance Directive Specifics Health Care Surrogate(s): None available. Per [place] statutes, her son Jamin would be the healthcare proxy and is willing to serve. . Documented care wishes: No documented care wishes available. . (Marii Horowitz) Objective Vital Signs Date Time Temp Pulse Resp B/P (MAP) Pulse Ox O2 Delivery O2 Flow Rate FiO2 12/11/17 14:04 100 40 12/11/17 12:30 99 40 12/11/17 12:00 80 12/11/17 12:00 40 12/11/17 11:40 40 12/11/17 11:29 98 40 12/11/17 11:29 99 100 12/11/17 11:27 88 24 116/65 (82) 99 12/11/17 10:00 94 12/11/17 10:00 94 14 117/64 (81) 97 12/11/17 09:00 92 12 117/65 (82) 97 12/11/17 09:00 90 12/11/17 08:00 94 12/11/17 08:00 98.4 94 12 119/68 (85) 97 12/11/17 08:00 40 12/11/17 07:10 98 40 12/11/17 07:00 98 Mechanical Ventilator 40 12/11/17 07:00 86 12/11/17 07:00 88 11 103/64 (77) 97 12/11/17 06:01 88 19 103/70 (81) 98 12/11/17 06:00 84 12/11/17 05:01 92 18 116/61 (79) 98 12/11/17 04:15 98 40 12/11/17 04:01 98.9 92 12 128/75 (92) 99 12/11/17 04:00 40 12/11/17 04:00 90 12/11/17 03:01 78 12 94/56 (69) 100 12/11/17 02:01 82 12 90/55 (67) 99 12/11/17 02:00 82 12/11/17 01:20 99 40 12/11/17 01:01 88 12 106/60 (75) 99 12/11/17 00:01 92 12 113/65 (81) 100 12/11/17 00:00 94 12/11/17 00:00 40 12/10/17 23:01 98.9 88 13 112/63 (79) 100 12/10/17 22:10 100 40 12/10/17 22:01 96 12 116/64 (81) 100 12/10/17 22:00 96 12/10/17 21:01 92 12 113/66 (82) 100 12/10/17 20:15 94 13 111/62 (78) 100 12/10/17 20:00 40 12/10/17 20:00 99 Mechanical Ventilator 40 Bi-Pap 12/10/17 20:00 96 12/10/17 19:35 100 40 12/10/17 19:01 99.0 104 21 112/60 (77) 100 12/10/17 18:01 100 13 111/64 (80) 100 12/10/17 18:00 100 12/10/17 17:22 100 40 12/10/17 17:01 100 13 112/60 (77) 99 12/10/17 16:01 99.6 94 12 109/61 (77) 100 12/10/17 16:00 40 12/10/17 16:00 94 Intake & Output 12/11/17 12/11/17 07:00 19:00 Intake Total 980 ml 100 ml Output Total 550 ml Balance 430 ml 100 ml IV Total 100 ml Tube Feeding 480 ml Other 500 ml Output Urine Total 550 ml # Bowel Movements 0 Physical Exam CONSTITUTIONAL/GENERAL: This is an adequately nourished patient, nonresponsive on mech vent TUBES/LINES/DRAINS: PIV LUE x 2. Méndez catheter . ETT. NGT SKIN: No jaundice, rashes, or lesions. No wounds seen anteriorly. Skin warm/ dry HEAD: Atraumatic. Normocephalic. EYES: Pupils equal and round and reactive. No scleral icterus. No injection or drainage. Fundi not examined. ENT: Nose without bleeding or purulent drainage. No something CARDIOVASCULAR: Regular rate and rhythm without murmur. No JVD. Peripheral pulses symmetric. 2+ edema BUE, 1+ edema bilat feet RESPIRATORY/CHEST: Symmetric, unlabored respirations via ETT to mech vent. Clear to auscultation. Breath sounds equal bilaterally. GASTROINTESTINAL: Abdomen soft, round, nondistended. No palpable masses. Bowel sounds normoactive. +ngt left nare, TF infusing. GENITOURINARY: Without palpable bladder distension. Méndez catheter in place clear, yellow urine. MUSCULOSKELETAL: Extremities without clubbing, cyanosis. 2+ edema BUE. 1+ bilat feet. No mottling or clubbing. LYMPHATICS: No palpable cervical or supraclavicular adenopathy. NEUROLOGICAL: on no sedation. Not responsive to my exam. No eye opening to pain stimuli resists eyelid retraction . No withdrawal to pain in all 4 extremities. PSYCHIATRIC: Not responsive. . (Marii Horowitz) Diagnostic Tests Laboratory Laboratory Tests Test 12/09/17 04:20 12/11/17 04:15 White Blood Count 10.6 TH/MM3 (4.0-11.0) 13.0 TH/MM3 (4.0-11.0) Red Blood Count 2.87 MIL/MM3 (4.00-5.30) 2.99 MIL/MM3 (4.00-5.30) Hemoglobin 8.9 GM/DL (11.6-15.3) 9.7 GM/DL (11.6-15.3) Hematocrit 27.9 % (35.0-46.0) 28.9 % (35.0-46.0) Mean Corpuscular Volume 97.2 FL (80.0-100.0) 96.7 FL (80.0-100.0) Mean Corpuscular Hemoglobin 31.0 PG (27.0-34.0) 32.3 PG (27.0-34.0) Mean Corpuscular Hemoglobin Concent 31.9 % (32.0-36.0) 33.5 % (32.0-36.0) Red Cell Distribution Width 14.1 % (11.6-17.2) 14.6 % (11.6-17.2) Platelet Count 448 TH/MM3 (150-450) 468 TH/MM3 (150-450) Mean Platelet Volume 8.3 FL (7.0-11.0) 8.6 FL (7.0-11.0) Neutrophils (%) (Auto) 72.3 % (16.0-70.0) 81.5 % (16.0-70.0) Lymphocytes (%) (Auto) 17.5 % (9.0-44.0) 10.7 % (9.0-44.0) Monocytes (%) (Auto) 7.5 % (0.0-8.0) 5.6 % (0.0-8.0) Eosinophils (%) (Auto) 2.1 % (0.0-4.0) 1.8 % (0.0-4.0) Basophils (%) (Auto) 0.6 % (0.0-2.0) 0.4 % (0.0-2.0) Neutrophils # (Auto) 7.6 TH/MM3 (1.8-7.7) 10.6 TH/MM3 (1.8-7.7) Lymphocytes # (Auto) 1.9 TH/MM3 (1.0-4.8) 1.4 TH/MM3 (1.0-4.8) Monocytes # (Auto) 0.8 TH/MM3 (0-0.9) 0.7 TH/MM3 (0-0.9) Eosinophils # (Auto) 0.2 TH/MM3 (0-0.4) 0.2 TH/MM3 (0-0.4) Basophils # (Auto) 0.1 TH/MM3 (0-0.2) 0.1 TH/MM3 (0-0.2) CBC Comment DIFF FINAL AUTO DIFF Differential Comment AUTO DIFF CONFIRMED Blood Urea Nitrogen 21 MG/DL (7-18) 21 MG/DL (7-18) Creatinine 1.20 MG/DL (0.50-1.00) 0.75 MG/DL (0.50-1.00) Random Glucose 182 MG/DL (74-106) 216 MG/DL (74-106) Calcium Level 8.0 MG/DL (8.5-10.1) 8.1 MG/DL (8.5-10.1) Sodium Level 150 MEQ/L (136-145) 142 MEQ/L (136-145) Potassium Level 4.1 MEQ/L (3.5-5.1) 4.1 MEQ/L (3.5-5.1) Chloride Level 115 MEQ/L (98-107) 109 MEQ/L (98-107) Carbon Dioxide Level 30.8 MEQ/L (21.0-32.0) 28.7 MEQ/L (21.0-32.0) Anion Gap 4 MEQ/L (5-15) 4 MEQ/L (5-15) Estimat Glomerular Filtration Rate 45 ML/MIN (>89) 78 ML/MIN (>89) Phenytoin (Dilantin) Level 8.7 MCG/ML (10.0-20.0) Phenobarbital Level 24.1 MCG/ML (15.0-40.0) Total Protein 5.6 GM/DL (6.4-8.2) Albumin 1.7 GM/DL (3.4-5.0) Alkaline Phosphatase 558 U/L (45-117) Aspartate Amino Transf (AST/SGOT) 390 U/L (15-37) Alanine Aminotransferase (ALT/SGPT) 194 U/L (10-53) Total Bilirubin 0.2 MG/DL (0.2-1.0) (Marii Horowitz) Result Diagram: 12/11/17 0415 12/11/17 0415 Microbiology Microbiology Date/Time Source Procedure Growth Status 12/08/17 06:13 Blood Peripheral Aerobic Blood Culture - Preliminary NO GROWTH IN 3 DAYS Resulted 12/08/17 06:13 Blood Peripheral Anaerobic Blood Culture - Preliminary NO GROWTH IN 3 DAYS Resulted 12/02/17 15:29 Cerebral Spinal Fluid Lumbar Puncture Gram Stain - Final Complete 12/02/17 15:29 Cerebral Spinal Fluid Lumbar Puncture CSF Culture - Final NO GROWTH IN 72 HOURS Complete 12/08/17 06:00 Sputum Nasal Tracheal Aspirate Gram Stain - Final Complete 12/08/17 06:00 Sputum Culture - Final Escherichia Coli Complete 12/08/17 06:09 Urine Catheterized Urine Urine Culture - Final Anna Glabrata Complete Imaging Last Impressions Brain MRI 12/11/17 0000 Signed Impressions: Service Date/Time: Monday, December 11, 2017 11:12 - CONCLUSION: 1. Faint diffusion restriction predominately along the high right parietal convexity with minimal diffusion restriction on the left. Pattern is somewhat unusual for anoxia with the asymmetry. Possible embolic event. CTA of the cervical and intracranial vessels to be performed for further characterization. 2. Chronic changes with some periventricular small vessel ischemic demyelination. 3. Mild ventricular prominence. In the appropriate clinical setting, findings could represent normal pressure hydrocephalus. 4. Bilateral mastoiditis. Mild chronic sinus disease in the sphenoid bilaterally. Dani Titus MD Chest X-Ray 12/08/17 0000 Signed Impressions: Service Date/Time: Friday, December 08, 2017 08:09 - CONCLUSION: 1. Interval removal of left internal jugular central venous line. 2. Mild improvement in pulmonary opacities. Shaquille Haley MD Gall Bladder Ultrasound 12/03/17 0000 Signed Impressions: Service Date/Time: Sunday, December 03, 2017 07:59 - CONCLUSION: 1. Ascites and bilateral pleural effusions. 2. Mildly distended gallbladder without evidence of wall thickening or cholelithiasis. 3. Otherwise unremarkable exam. Boo Cartwright MD Lumbar Puncture Fluoroscopy 12/02/17 0000 Signed Impressions: Service Date/Time: Saturday, December 02, 2017 15:28 - CONCLUSION: Uncomplicated fluoroscopically guided lumbar puncture. Aly Leigh MD Renal Ultrasound 11/29/176 Signed Impressions: Service Date/Time: Wednesday, November 29, 2017 13:16 - CONCLUSION: 1. Both kidneys are sonographically normal without hydronephrosis or nephrolithiasis. 2. Very abnormal appearance of the gallbladder with mural thickening and minimal pericholecystic fluid Dani Titus MD Head CT 11/28/17 0000 Signed Impressions: Service Date/Time: November 15:46 - CONCLUSION: 1. Ventriculomegaly suggesting central cerebral atrophy versus hydrocephalus. Clinical correlation is recommended. 2. No acute infarct, acute hemorrhage, midline shift or extra-axial fluid collections. Dev Christopher MD Procedures 11/29: Orotracheal intubation 11/29: Right chest tube placement secondary to iatrogenic pneumothorax. 11/29: Bronchoscopy 11/29: Left IJ central line placement 11/30: Bronchoscopy . (Marii Horowitz) Assessment and Plan Disease Oriented Problem List: (1) Hyperkalemia (2) Acute renal failure (3) DKA (diabetic ketoacidoses) (4) Altered mental status (5) Metabolic acidosis (6) Hypotension (7) Seizure cerebral (8) Encephalopathy, metabolic (9) NSTEMI (non-ST elevated myocardial infarction) (10) UTI (urinary tract infection) (11) Type 1 diabetes (12) Leukocytosis (13) Respiratory failure (14) Hypertension Symptom Scale: (1) Encephalopathy 0-10 Scale: Unable to quantify (2) Dyspnea 0-10 Scale: Unable to quantify Pertinent Non-Medical Issues Psychosocial:Originally from [facility], moved here to [place] about 3 years ago to be closer to her sister and mother. Her son Jamin lives in [place]. 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 Supported locally by her sister , and significant other León Robertsалександр. Patient and her sister Evelyn take turns helping to care for their mother who is in her 90s. Spiritual:[employer], attended [facility] [employer]. 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 Legal:Pt unable to participate due to encephalopathy, not clear she will regain ability to participate. Her sister has been involved in her care and decisions. She also is reported to have one son who lives in [place]. Not known at this time if she has advanced directives or health care surrogate designation. If she does not have advanced directives, then her son or any additional children would be appropriate legal proxy per [place] statutes ( if they wish to serve as such). Ethical issues impacting care: No ethical issues identified. Important Contacts sister Evelyn Obrien at [phone] Son Jamin (in [place]) Significant other León De León [phone]/ [phone] . Prognosis This patient was initially admitted for altered mental status, findings of DKA. She also suffered acute renal failure, respiratory failure. She were now remains profoundly encephalopathic on mechanical vent at this time unable to medically wean. 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 It is likely she will require tracheostomy and PEG tube to continue aggressive treatment course. . Code Status: Full Code Plan * Legal decision maker:Pt unable to participate due to encephalopathy, not clear she will regain ability to participate. Her sister has been involved in her care and decisions. She also is reported to have one son who lives in [place]. Not known at this time if she has advanced directives or health care surrogate designation. If she does not have advanced directives, then her son or any additional children would be appropriate legal proxy per [place] statutes ( if they wish to serve as such). * Goals: TBD, at this time the family is considering information received and family meeting and are awaiting input from the neurologist and imaging study to make further decisions. * CODE STATUS: Full code by default * SYMPTOMS: --Encephalopathy-admitted with DKA, altered mental status. Initial MRI, CSF etc. negative. Repeat MRI findings area of diffusion restriction on right parietal convexity with less diffusion restriction on the left. Consistent with 12/11 EEG showing severe encephalopathy with more prominent slowing over the right hemisphere. Pending neurology's review of MRI for further plans/ Imaging studies. Not withdrawing to noxious stimuli. --Dyspnea-emergently intubated for acute respiratory failure, inability to protect airway. Remains on mechanical vent. Now having apnea on CPAP trials when she had previously been tolerating for 4-6 hours. Family aware of upcoming trach/PEG decision and are contemplating their goal of care options, which may change based on neurology input after reviewing imaging studies. --Seizures-she is currently on Cerebyx. Phenobarbital has been held since yesterday to determine effect on level of consciousness. She remains on seizure precautions. 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 * Palliative care will continue to follow during hospital course as condition evolves, to assist patient/decision-maker with understanding of medical conditions, weighing benefits/burdens of treatment options, for clarification of goals of treatment. Additionally will assist with any symptoms of palliative concern . (Marii Horowitz) Attestation To help prompt me to consider important information that might be impacting today's encounter and assessment, information from prior notes written by myself or my colleagues may have been "brought forward" into today's note. My signature on this note, however, is an attestation that I personally performed the exam, history, and/or decision-making noted today, and, unless otherwise indicated, the interactions with patient, family, and staff as well as the review of records all occurred today. I also attest that the listed assessment and stated plan reflect my best clinical judgment today based on the combination of historical information, prior notes, and today's exam/ interactions. When time spent is documented, it refers only to time spent today by the signer, or if indicated, combined time spent today by collaborating physician/nurse practitioner. . (Marii Horowitz) Collaborating MD Comments Chart reviewed. Case discussed with palliative care RADIO EQUIPMENT INSTALLER. Above note reviewed and I concur. . (Oren Gan MD) Marii Horowitz Dec 11, 2017 16:16 Oren Gan MD Jan 18, 2018 07:32
--- NOTE | 2017-12-11 16:22 | HHI.IDPN ---
Subjective Subjective Remarks pt remains severely encephalopathic, not waking up off sedation remains on vent afebrile BP stable now LFTs are elevated Antibiotics fluconazol cefepime Lines cvl discontinued piv in each arm Allergies: Coded Allergies: No Known Allergies (Unverified Allergy, Unknown, 11/28/17) Objective . Vital Signs Date Time Temp Pulse Resp B/P (MAP) Pulse Ox O2 Delivery O2 Flow Rate FiO2 12/11/17 15:00 78 12/11/17 14:04 100 40 12/11/17 14:00 84 12/11/17 13:00 74 12/11/17 12:30 99 40 12/11/17 12:00 80 12/11/17 12:00 40 12/11/17 11:40 40 12/11/17 11:29 98 40 12/11/17 11:29 99 100 12/11/17 11:27 88 24 116/65 (82) 99 12/11/17 10:00 94 12/11/17 10:00 94 14 117/64 (81) 97 12/11/17 09:00 92 12 117/65 (82) 97 12/11/17 09:00 90 12/11/17 08:00 94 12/11/17 08:00 98.4 94 12 119/68 (85) 97 12/11/17 08:00 40 12/11/17 07:10 98 40 12/11/17 07:00 98 Mechanical Ventilator 40 12/11/17 07:00 86 12/11/17 07:00 88 11 103/64 (77) 97 12/11/17 06:01 88 19 103/70 (81) 98 12/11/17 06:00 84 12/11/17 05:01 92 18 116/61 (79) 98 12/11/17 04:15 98 40 12/11/17 04:01 98.9 92 12 128/75 (92) 99 12/11/17 04:00 40 12/11/17 04:00 90 12/11/17 03:01 78 12 94/56 (69) 100 12/11/17 02:01 82 12 90/55 (67) 99 12/11/17 02:00 82 12/11/17 01:20 99 40 12/11/17 01:01 88 12 106/60 (75) 99 12/11/17 00:01 92 12 113/65 (81) 100 12/11/17 00:00 94 12/11/17 00:00 40 12/10/17 23:01 98.9 88 13 112/63 (79) 100 12/10/17 22:10 100 40 12/10/17 22:01 96 12 116/64 (81) 100 12/10/17 22:00 96 12/10/17 21:01 92 12 113/66 (82) 100 12/10/17 20:15 94 13 111/62 (78) 100 12/10/17 20:00 40 12/10/17 20:00 99 Mechanical Ventilator 40 Bi-Pap 12/10/17 20:00 96 12/10/17 19:35 100 40 12/10/17 19:01 99.0 104 21 112/60 (77) 100 12/10/17 18:01 100 13 111/64 (80) 100 12/10/17 18:00 100 12/10/17 17:22 100 40 12/10/17 17:01 100 13 112/60 (77) 99 12/11/17 12/11/17 12/12/17 15:00 23:00 07:00 Intake Total 100 ml Balance 100 ml IV Total 100 ml . Laboratory Tests Test 12/11/17 04:15 White Blood Count 13.0 TH/MM3 Red Blood Count 2.99 MIL/MM3 Hemoglobin 9.7 GM/DL Hematocrit 28.9 % Mean Corpuscular Volume 96.7 FL Mean Corpuscular Hemoglobin 32.3 PG Mean Corpuscular Hemoglobin Concent 33.5 % Red Cell Distribution Width 14.6 % Platelet Count 468 TH/MM3 Mean Platelet Volume 8.6 FL Neutrophils (%) (Auto) 81.5 % Lymphocytes (%) (Auto) 10.7 % Monocytes (%) (Auto) 5.6 % Eosinophils (%) (Auto) 1.8 % Basophils (%) (Auto) 0.4 % Neutrophils # (Auto) 10.6 TH/MM3 Lymphocytes # (Auto) 1.4 TH/MM3 Monocytes # (Auto) 0.7 TH/MM3 Eosinophils # (Auto) 0.2 TH/MM3 Basophils # (Auto) 0.1 TH/MM3 CBC Comment AUTO DIFF Differential Comment AUTO DIFF CONFIRMED Laboratory Tests Test 12/11/17 04:15 Blood Urea Nitrogen 21 MG/DL Creatinine 0.75 MG/DL Random Glucose 216 MG/DL Total Protein 5.6 GM/DL Albumin 1.7 GM/DL Calcium Level 8.1 MG/DL Alkaline Phosphatase 558 U/L Aspartate Amino Transf (AST/SGOT) 390 U/L Alanine Aminotransferase (ALT/SGPT) 194 U/L Total Bilirubin 0.2 MG/DL Sodium Level 142 MEQ/L Potassium Level 4.1 MEQ/L Chloride Level 109 MEQ/L Carbon Dioxide Level 28.7 MEQ/L Anion Gap 4 MEQ/L Estimat Glomerular Filtration Rate 78 ML/MIN Imaging Last Impressions Brain MRI 12/11/17 0000 Signed Impressions: Service Date/Time: Monday, December 11, 2017 11:12 - CONCLUSION: 1. Faint diffusion restriction predominately along the high right parietal convexity with minimal diffusion restriction on the left. Pattern is somewhat unusual for anoxia with the asymmetry. Possible embolic event. CTA of the cervical and intracranial vessels to be performed for further characterization. 2. Chronic changes with some periventricular small vessel ischemic demyelination. 3. Mild ventricular prominence. In the appropriate clinical setting, findings could represent normal pressure hydrocephalus. 4. Bilateral mastoiditis. Mild chronic sinus disease in the sphenoid bilaterally. Dani Titus MD Chest X-Ray 12/08/17 0000 Signed Impressions: Service Date/Time: Friday, December 08, 2017 08:09 - CONCLUSION: 1. Interval removal of left internal jugular central venous line. 2. Mild improvement in pulmonary opacities. Shaquille Haley MD Gall Bladder Ultrasound 12/03/17 0000 Signed Impressions: Service Date/Time: Sunday, December 03, 2017 07:59 - CONCLUSION: 1. Ascites and bilateral pleural effusions. 2. Mildly distended gallbladder without evidence of wall thickening or cholelithiasis. 3. Otherwise unremarkable exam. Boo Cartwright MD Lumbar Puncture Fluoroscopy 12/02/17 0000 Signed Impressions: Service Date/Time: Saturday, December 02, 2017 15:28 - CONCLUSION: Uncomplicated fluoroscopically guided lumbar puncture. Aly Leigh MD Renal Ultrasound 11/29/17 8216 Signed Impressions: Service Date/Time: Wednesday, November 29, 2017 13:16 - CONCLUSION: 1. Both kidneys are sonographically normal without hydronephrosis or nephrolithiasis. 2. Very abnormal appearance of the gallbladder with mural thickening and minimal pericholecystic fluid Dani Titus MD Head CT 11/28/17 0000 Signed Impressions: Service Date/Time: November 15:46 - CONCLUSION: 1. Ventriculomegaly suggesting central cerebral atrophy versus hydrocephalus. Clinical correlation is recommended. 2. No acute infarct, acute hemorrhage, midline shift or extra-axial fluid collections. Dev Christopher MD Physical Exam CONSTITUTIONAL/GENERAL: This is an adequately nourished patient, in no apparent distress. TUBES/LINES/DRAINS: SKIN: No jaundice, rashes, or lesions. Skin temperature appropriate. Not diaphoretic. CARDIOVASCULAR: Regular rate and rhythm without murmurs, gallops, or rubs. No JVD. Peripheral pulses symmetric. RESPIRATORY/CHEST: Symmetric, unlabored respirations. Clear to auscultation. Breath sounds equal bilaterally. No wheezes, rales, or rhonchi. GASTROINTESTINAL: Abdomen soft, moderately distended, no reaction to palpation. No hepato-splenomegaly, or palpable masses. No guarding. Bowel sounds present. PEG in placee GENITOURINARY: Without palpable bladder distension. Méndez catheter in place with clear yellow urine MUSCULOSKELETAL: Extremities without clubbing, cyanosis, or edema. No joint tenderness or effusion noted. No calf tenderness. No mottling or clubbing. LYMPHATICS: No palpable cervical or supraclavicular adenopathy. NEUROLOGICAL: Unresponsive. + spontaneous movements RUE, nothing to commands; no eye opening to command Gag and cough present PSYCHIATRIC: unable to assess Assessment & Plan Remarks sepsis: on [resentation fever up to 100.7, leukocytopsis with WBC of 25 K and lactic acidosis DKA - probably 2/2 sepiss: resoplved Acute VDRF, BAL, PNA, now growing hoskins S E.coli No e/o Meningitis on CSF Probably anoxic encephalopathy - neurology ff No e/o cholecytitis - US findings were dw Dr Titus - further w/u with RUQ US was recom'd Crititical, stable Worseing renal fnx: resolved Funguria ? clin significance New issue : elevated LFTs - dc cefepime - start CFTX - cont fluconzole for now - fu LFTs - repeat US gallbladder monitor renal fnx dw palliative care Anh Childs MD Dec 11, 2017 16:22
[2017-12-11] MEDS ORDERED: CEFEPIME INJ 2,000 MG in SODIUM CHLORIDE 0.9% INJ 100 ML IV SCH (17:00)
[2017-12-11] MEDS: cefTRIAXone INJ 2,000 MG in SODIUM CHLORIDE 0.9% INJ 100 ML IV SCH (17:45)
[2017-12-11 19:27] LABS: ALBUMIN 1.7 GM/DL (3.4-5.0)
[2017-12-11 19:30] LABS: ALT (GPT) 274 U/L (10-53); DIRECT BILIRUBIN ADULT 0.1 MG/DL (0.0-0.2)
[2017-12-11 19:31] LABS: AST (GOT) 468 U/L (15-37)
[2017-12-11 19:32] LABS: TOTAL BILIRUBIN ADULT LESS THAN 0.1 MG/DL (0.2-1.0)
[2017-12-11 19:33] LABS: ALKALINE PHOSPHATASE 711 U/L (45-117); TOTAL PROTEIN 5.5 GM/DL (6.4-8.2)
[2017-12-11] MEDS: ATORVASTATIN 10 MG TAB PO SCH (22:21)
[2017-12-11] MEDS ORDERED: IOHEXOL 350 MG/ML 10 ML VIAL (for RAD DIAG) IVCONTRAST ONE (23:56)
[2017-12-12] VITALS (40 sets, daily range): BP systolic 97–123; BP diastolic 55–71; PULSE 76–102; RESP 10–25; TEMP 98–99.3; O2SAT 96–100
--- NOTE | 2017-12-12 00:23 | RADRPT ---
EXAM DATE/TIME: 12/11/2017 23:08 [facility] COMPARISON: No previous studies available for comparison. INDICATIONS : Abnormal MRI Brain. IV CONTRAST: 85 cc Omnipaque 350 (iohexol) IV ; Cumulative dose for multiple exams. RADIATION DOSE: 42.26 CTDIvol (mGy) ; Combined studies MEDICAL HISTORY : Diabetes. SURGICAL HISTORY : Insulin pump ENCOUNTER: Initial ACUITY: 1 day PAIN SCALE: Non-responsive LOCATION: cranial TECHNIQUE: Volumetric scanning was performed using a multi-row detector CT scanner. The data was post processed with a variety of visualization algorithms including full volume maximum intensity projection, multi -planar sliding thin slab reformation, curved planar reformation, and surface rendering techniques. Using automated exposure control and adjustment of the mA and/or kV according to patient size, radiat ion dose was kept as low as reasonably achievable to obtain optimal diagnostic quality images. DICO M format image data is available electronically for review and comparison. FINDINGS: There is excellent visualization of the major intracranial arteries out to the second-order branch ve ssels. There is no evidence for aneurysm, vessel truncation or stenosis, and no evidence for vascula r malformation. Anterior communicating artery not seen. Small left-sided posterior communicating brook[place] ry. CONCLUSION: 1. No large vessel stenosis or aneurysm. Ac Davis MD on December 12, 2017 at 0:20 Board Certified Radiologist. This report was verified electronically.
--- NOTE | 2017-12-12 00:24 | RADRPT ---
EXAM DATE/TIME: 12/11/2017 23:08 [facility] COMPARISON: No previous studies available for comparison. INDICATIONS : Abnormal MRI Brain. IV CONTRAST: 85 cc Omnipaque 350 (iohexol) IV ; Cumulative dose for multiple exams. RADIATION DOSE: 42.26 CTDIvol (mGy) ; Combined studies MEDICAL HISTORY : Diabetes. SURGICAL HISTORY : Insulin pump. ENCOUNTER: Initial ACUITY: 1 day PAIN SCALE: Non-responsive LOCATION: neck Elevated flow velocities and ICA/CCA ratios have been found to correlate with increased degrees of vessel stenosis, calculated as percentage of diameter relative to a normal segment of distal ICA/CCA. TECHNIQUE: Volumetric scanning was performed using a multirow detector CT scanner. The data was post processed with a variety of visualization algorithms including full-volume maximum intensity projection, multip lanar sliding thin-slab reformation, curved-planar reformation, and surface-rendering techniques. Us ing automated exposure control and adjustment of the mA and/or kV according to patient size, radiatio n dose was kept as low as reasonably achievable to obtain optimal diagnostic quality images. DICOM f ormat image data is available electronically for review and comparison. FINDINGS: AORTIC ARCH: There is a three-vessel origin of the great vessels from the aorta. No evidence of ostial narrowing. RIGHT CAROTID: The common carotid artery is intact. The carotid bulb has a normal configuration without ulceration o r narrowing. The internal carotid artery lumen is smooth without stenosis. The external carotid brook[place] ry is intact. LEFT CAROTID: The common carotid artery is intact. The carotid bulb has a normal configuration without ulceration or narrowing. The internal carotid artery lumen is smooth without stenosis. The external carotid ar rebecca is intact. VERTEBRALS: The vertebral arteries have a symmetric diameter. No stenotic lesions are seen. CONCLUSION: No carotid stenosis. Ac Davis MD on December 12, 2017 at 0:22 Board Certified Radiologist. This report was verified electronically.
[2017-12-12] MEDS: RESP: ALBUTEROL 2.5 MG/3 ML NEB (PRN) INH (01:25)
[2017-12-12] MEDS: FREE WATER G-TUBE SCH ×4 (03:00→21:00)
[2017-12-12] MEDS: HEPARIN SODIUM - SQ 10,000 UNITS/ML VIAL SQ SCH ×3 (03:46→19:00)
[2017-12-12] MEDS: CHLORHEXIDINE GLUCONATE 2 % 1 PACK (2 CLOTHS) TOP SCH (04:00)
[2017-12-12] MEDS: INSULIN ASPART SUPPLEMENTAL SCALE SQ SCH ×7 (05:58→22:14)
--- NOTE | 2017-12-12 07:12 | HHI.CCPN ---
Subjective Remarks/Hospital Course This is a 51-year-old female. Date of admission 11/28/2017. Past medical history includes diabetes mellitus type 1 uncontrolled insulin- dependent with retinopathy on home insulin pump, hypertension, allergic rhinitis and chronic benzodiazepine use. She also has history of breast cancer on raloxifene she originally presented to [facility] ED During the workup, patient was noted to have a blood sugar of 808. Elevated acetone. Sodium 135. Potassium 6.0. Ferritin 2.1. Leukocytosis 25,000. Macrocytic anemia. UA negative for infectious etiology. She was bolused with 3 L of 0.9% NaCl IV fluid bolus. She is received 3 ampules of sodium bicarbonate and 1 g calcium gluconate. Chest x-ray post procedure revealed the CT scan of the head is read by the radiologist as ventriculomegaly but otherwise no acute findings. 11/29: Patient had nonrebreather off all night. PTX now 8 mm. Yells "Help me " "I don't know" Gap has closed, will transition back to SQ insulin if able to pass swallow. Replacing lytes. 11/30: Patient opens eyes to voice. Leftward gaze. Frequent blinking. Withdraws to stimulation bilateral lower extremities. T-max 99.5. Remains on norepinephrine and phenylephrine drips. MRI brain revealed ventriculomegaly. No acute signs of CVA. Echocardiogram EF 40%. 12/01: Afebrile. Patient remains off sedation approximately 24 hours nonresponsive. EEG in process. BAL revealed gram-negative rods the patient continues on Zosyn. The patient remains on vasopressors norepinephrine, vasopressin, and phenylephrine. Versed infusion restarted secondary to seizure activity noted on repeat EEG this a.m.. 12/02: Afebrile. The patient is scheduled for lumbar puncture this a.m., INR 1.0 patient has been off subcu heparin approximately 3 days. The patient continues on Versed and fentanyl infusions to maintain ventilator synchrony and avoidance of subclinical seizures which were noted on the EEG yesterday. The patient continues on multiple vasopressors to include norepinephrine and phenylephrine and vasopressin. Vasopressin currently being weaned off. The patient continues to have persistent leukocytosis though it is slightly downtrending plan for ID consult today appreciate recommendations. Bronchial washings resulted E. coli, currently patient continues on Zosyn. Patient was noted to have a positive fluid balance yesterday the patient received 20 mg of Lasix with adequate diuresis the patient noted to have a sodium level slightly decreased at 135 IV fluids mixed in 0.9 normal saline. 12/03: No acute events overnight lumbar puncture performed yesterday results pending. Dilantin level therapeutic. Phenobarbital level pending. Patient off vasopressin 24 hours. Phenylephrine currently being weaned off. Patient noted to be anemic 1 unit packed cells will be transfused today no pneumothorax chest tube now placed to waterseal today. 12/04: T-max 99.4. Repeat EEG performed today. Patient now withdrawing to pain 4 extremities, and open eyes to painful stimulus. Patient noted to move bilateral lower extremities 1 this shift. Patient tolerating tube feeds, overbreathing vent will begin CPAP trials in the a.m. if clinically stable. Phenylephrine completely discontinued overnight. Norepinephrine has been decreased to 3 mics/min. hemoglobin stable. 12/05: Afebrile. Patient was weaned off of norepinephrine last p.m.. The patient has been off sedation for greater than 48 hours, no change in neurological status opens eyes to deep stimulation, moves extremities 4 withdrawing to painful stimuli. CPAP trials initiated this a.m. the patient tolerated CPAP for approximately 6.5 hours. Chest x-ray remains unchanged no pneumo thorax, plan for removal of chest tube this evening. 12/06 No events overnight. On no sedation. Afebrile. unresponsive s/p removal chest tube yesterday.. 12/07 versed drip off since 12/04.. Eyes open to noxious stimuli, spontaneously moved R hand, withdraws x4. Temp max 99.3. WBC 11.2 today. Remains off pressors. On CPAP 05/23 and tolerating Subjective: 12/08. Temp max 100.4 overnight. Blood, urine, sputum cultures were sent. White blood cell count 13 this morning. Blood pressure was down to 84/46 with map of 56 this morning. Diuresed nearly 4 L yesterday with Lasix 40 IV q12, creatinine increased today. Tolerating tube feeds. Liquid stool x3 overnight. Apneic during multiple attempts at CPAP this morning. No neuro change. EEG bilateral slowing. Bihemispheric abnormalities. No epileptiform features 12/09: Remains encephalopathic, orally intubated on mechanical ventilation. Tolerating tube feeds. Not on any sedation. 12/10: Remains encephalopathic, orally intubated on mechanical ventilation. Tolerating tube feeds. Minimal eye opening with painful stimuli however extremely poor gag response. 12/11: Remains encephalopathic, orally intubated on mechanical ventilation. Tolerating tube feeds. Awaiting MRI/ EEG. 12/12: Remains encephalopathic, orally intubated on mechanical ventilation. No significant improvement in neurologic status noted. Tolerating tube feeds. EEG very abnormal more on the right. MRI brain done yesterday with high parietal lobe ischemic changes however CTA with no major vessel stenosis or aneurysm. Objective Vital Signs Date Time Temp Pulse Resp B/P (MAP) Pulse Ox O2 Delivery O2 Flow Rate FiO2 12/12/17 06:09 92 12/12/17 06:03 15 117/64 (81) 99 12/12/17 04:20 40 12/12/17 04:03 98.6 12/11/17 20:00 Mechanical Ventilator Bi-Pap 12/09/17 19:30 2.00 Intake and Output 12/12/17 12/12/17 12/13/17 08:00 16:00 00:00 Intake Total 930 ml Output Total 600 ml Balance 330 ml Result Diagram: 12/11/17 0415 12/11/17 0415 Imaging Last Impressions Chest X-Ray 12/06/17 0600 Signed Impressions: Service Date/Time: Wednesday, December 06, 2017 04:52 - CONCLUSION: Improvement in the right consolidation. No change in left effusion and left consolidation. Charlie Gardner Jr., MD Gall Bladder Ultrasound 12/03/17 0000 Signed Impressions: Service Date/Time: Sunday, December 03, 2017 07:59 - CONCLUSION: 1. Ascites and bilateral pleural effusions. 2. Mildly distended gallbladder without evidence of wall thickening or cholelithiasis. 3. Otherwise unremarkable exam. Boo Cartwright MD Lumbar Puncture Fluoroscopy 12/02/17 0000 Signed Impressions: Service Date/Time: Saturday, December 02, 2017 15:28 - CONCLUSION: Uncomplicated fluoroscopically guided lumbar puncture. Aly Leigh MD Renal Ultrasound 11/29/17 [id number] Signed Impressions: Service Date/Time: Wednesday, November 29, 2017 13:16 - CONCLUSION: 1. Both kidneys are sonographically normal without hydronephrosis or nephrolithiasis. 2. Very abnormal appearance of the gallbladder with mural thickening and minimal pericholecystic fluid Dani Titus MD Brain MRI 11/29/17 0000 Signed Impressions: Service Date/Time: Wednesday, November 29, 2017 13:27 - CONCLUSION: 1. Mild diffuse ventriculomegaly. Clinical correlation for normal pressure hydrocephalus is recommended. 2. Amro-np-xtouxfyh periventricular small vessel ischemic white matter demyelination, out of proportion for age. Aly Leigh MD Head CT 11/28/17 0000 Signed Impressions: Service Date/Time: November 15:46 - CONCLUSION: 1. Ventriculomegaly suggesting central cerebral atrophy versus hydrocephalus. Clinical correlation is recommended. 2. No acute infarct, acute hemorrhage, midline shift or extra-axial fluid collections. Dev Christopher MD Procedures 12/02-planned lumbar puncture Objective Remarks GENERAL: 61-year-old female critically ill currently orotracheally intubated SKIN: Warm and dry. No rash HEAD: Atraumatic. Normocephalic. EYES: Gaze conjugate. Pupils equal and round about 4 mm and reactive to 2 mm bilaterally. No scleral icterus. No injection. Scleral edema improved. ENT: No nasal bleeding or discharge. Mucous membranes pink and moist NECK: Trachea midline. No JVD. CARDIOVASCULAR: RRR. . No murmur RESPIRATORY: Orally intubated on mechanical ventilation, good air entry bilaterally, no wheezing or crackles GASTROINTESTINAL: NGT L nare with tube feeds running. Abdomen soft, non-tender, nondistended. Bowel sounds present. MUSCULOSKELETAL: Edema improved, ~ 1+ of hands and ble. NEUROLOGICAL: Pupils reactive as per above + cough + gag. Eyes open to deep central noxious stimuli. Withdraws with all extremities. Date of Insertion: Nov 28, 2017 Line: Central Venous Catheter Side: Left Location: Internal, Jugular A/P Assessment and Plan Neuro/Psych: Acute encephalopathy secondary to diabetic ketoacidosis Anxiety disorder NOS Benzodiazepine use Off sedation since 12/04. Neurology Dr. Neville Acetaminophen 650 mg by tube every 6 hours as needed fever CT brain 11/28 revealed Ventriculomegaly suggesting central cerebral atrophy versus hydrocephalus. Clinical correlation is recommended. No acute infarct, acute hemorrhage, midline shift or extra-axial fluid collections. She is on amitriptyline 10 mg daily at home. This has been held UDS negative MRI brain 11/29 revealed mild to moderate ventriculomegaly. EEG - 12/07 bihemispheric slowing. No epileptiform features. EEG 11/28- bihemispheric slowing with some left frontocentral sharp waves and phase reversal suggesting an epileptiform abnormality and possible structural lesion in this region. No ictal pattern present. 11/30 levetiracetam 500 mg IV every 12 hours after 1 g bolus, Keppra discontinued 12/05 per neurology Neurology -Dr. Neville, on Phenobarb 65mg Q8 (level was 15 on 12/06), Cerebyx 200mg/PE Q12. Phenytoin level 9.7, Albumin corrected 22. Discussed with Dr. Neville -stopping phenobarbital on 12/10. 12/02 Ophthalmology -no eye infection Lacri-Lube applied for scleral edema 12/02-lumbar puncture-negative. CSF HSV negative 12/03-cortisol level 17 ammonia level 22 Continue to hold sedation. EEG is severely abnormal on the right. MRI brain done on 12/11 with ischemic changes high left parietal lobe however CTA brain with no major vessel stenosis or aneurysm. Dr. Neville following from neurology and to discuss with patient's son regarding neurologic prognosis. CV: History of hypertension Shock, resolved Elevated troponin Acute systolic heart failure ejection fraction 40% NSTEMI cardiomyopathy Monitor HR and BP keep MAP>65mmHg on atorvastatin 10 mg by tube daily Continue aspirin 81 mg by tube daily 2D echocardiogram revealed EF around 40%. LV increased size. Septal hypokinesis. 12/03- Cardiology has signed off Resp: Acute hypoxemic respiratory failure Hemoptysis-resolved Tobacco abuse/ongoing Iatrogenic PTX status post chest tube placement [facility] 16-->/08/23/39, Daily SBT. Tolerating CPAP 12/07, mental status prevents extubation at this time. Today, apneic during CPAP trials. Decreased resp rate to 12. Intubated 11/29 Mechanical ventilation day #12. Hold off a couple more days to see if she awakes off sedation, may need trach later this week. Ventilator bundle Albuterol/ipratropium aerosols every 6 hours with albuterol aerosols every 2 hours as needed dyspnea 12/03 Right chest tube in placed to waterseal 11/29 Status post chest tube placement see documentation, removed 12/05. Status post bronchoscopy 11/29. CXR 12/07-bilateral pleural effusion, RLL opacity may be worse. F/u CXR GI: Moderate protein energy malnutrition Glucerna 1.5, change goal rate to 40 mL/h per nutrition recommendations. famotidine for GI prophylaxis Docusate sodium/senna 1 tablet twice daily for bowel regimen 12/03 gallbladder ultrasound -gallbladder mildly distended without evidence of wall thickening or cholelithiasis. There is ascites and pleural effusions. Continue multivitamin/thiamine. thiamine via og FEN/RENAL: BRIELLE- resolved Hypernatremia Monitor renal function, I/O's, electrolytes replacement per protocol. Free water 250ml Qq6 hours. Creatinine increased, edema down, hold lasix. Renal ultrasound revealed no medical renal disease. Endo: Insulin-dependent diabetes mellitus type 1 uncontrolled Diabetic ketoacidosis - resolved Originally, patient received 3 L normal saline in the ED along with 3 refills and bicarbonate, 1 ampule of calcium gluconate. Beta hydroxybutyrate cleared 11/29 Insulin pump was disconnected 11/28. According to sister Evelyn Obrien, patient had received a new insulin pump within the past 48 hours. She has no history of DKA in the past to her knowledge TSH 0.38 Continue SSI Novulog medium protocol with accucheck every 4 hours maintain euglycemia Levemir 7 q12 Heme: Leukocytosis- Resolved Macrocytic anemia Monitor CBC daily. Follow trends 12/03 transfused 1 unit of packed red blood cells ID: Community-acquired versus aspiration Persistent leukocytosis BC x2, UA (-) inf A/B negative 11/29 S/P bronchoscopy with sample sent from left lower lobe 11/29 Sputum (BAL)-E.coli, pansensitive ID is following, Dr. Childs On cefepime/ oral fluconazole Vancomycin has been discontinued 12/06 per ID 12/02-lumbar puncture-negative Access PIV in place Left IJ CVL placed 11/29-12/07. Prophylaxis -GI -famotidine for stress ulcer prophylaxis ( shortage pantoprazole)nursing -DVT -SCD/continue heparin SQ Dr. Munoz called patient's sister, Evelyn Gramajo, to update 12/08. No answer. RN states she hasn't visited in several days. Consulted palliative care to assist with deciding goals of therapy as patient appears to have significant encephalopathy Discussed with patient's family at bedside in length on 12/10 including patient' s son who arrived from [place] as well as sister. Explained encephalopathy and possible contributing factors. Discussed possible need for tracheostomy and PEG tube placement. Family voiced understanding and were agreeable with plan of care. Discussed with Dr. Neville on 12/10 who agrees with obtaining EEG and repeating MRI brain and will be discussing neurologic prognosis with patient's son following review of those results. Condition remains critical. Time spent on critical care excluding procedures 30 minutes. Reji Rosenberg MD Dec 12, 2017 07:12
[2017-12-12] MEDS: CHLORHEXIDINE 0.12% (ORAL KIT) 15 ML CUP MT SCH ×2 (08:00→20:00)
[2017-12-12] MEDS: INSULIN DETEMIR 100 UNITS/ML VIAL SQ SCH ×2 (09:00→22:13)
[2017-12-12] MEDS: SODIUM CHLORIDE 0.9% FLUSH 10 ML FLUSH IV FLUSH SCH ×3 (09:00→22:13)
[2017-12-12] MEDS: ARTIFICIAL TEARS OPTH OINT 3.5 APPLIC/3.5 GM TUBO EACH EYE SCH ×4 (09:00→21:00)
[2017-12-12] MEDS: FLUCONAZOLE 200 MG TAB PO SCH (09:05)
[2017-12-12] MEDS: FAMOTIDINE 20 MG TAB NG SCH ×2 (09:05→22:13)
[2017-12-12] MEDS: FOSPHENYTOIN SODIUM 100 MG PE/2 ML VIAL IV SCH ×2 (09:06→22:14)
[2017-12-12] MEDS: MULTIVITAMIN TAB PO SCH (09:07)
[2017-12-12] MEDS: THIAMINE HCL 100 MG TAB OG-TUBE SCH (09:07)
[2017-12-12] MEDS: ASPIRIN 81 MG CHEW TAB CHEW SCH (09:07)
--- NOTE | 2017-12-12 13:23 | HHI.PR ---
Addendum to Inpatient Note Additional Information pt see around 1300 dw RN full note to follow Anh Childs MD Dec 12, 2017 13:23
--- NOTE | 2017-12-12 16:04 | RADRPT ---
EXAM DATE/TIME: 12/12/2017 13:20 [facility] COMPARISON: No previous studies available for comparison. INDICATIONS : Increased lab values. MEDICAL HISTORY : Diabetes mellitus type 1. Anxiety. SURGICAL HISTORY : Bilateral cataract surgery. Dental implants. Bunionectomy. ENCOUNTER: Initial ACUITY: 1 day PAIN SCORE: Nonresponsive. LOCATION: Abdomen. MEASUREMENTS: LIVER: 16.5 cm length COMMON DUCT: 4 mm RIGHT KIDNEY: 10.0 x 4.6 x 5.5 cm SPLEEN: 7.7 cm length FINDINGS: LIVER: Normal echotexture without focal lesion or ductal dilatation. COMMON DUCT: No intraluminal mass or stone visualized. GALLBLADDER: Gallbladder shows marked mural thickening of 1.3 cm. Small amount of pericholecystic fluid and trace fluid adjacent to liver. PANCREAS: The visualized portions are within normal limits. RIGHT KIDNEY: No hydronephrosis, stone or mass. SPLEEN: No focal lesion. MISCELLANEOUS: Bilateral pleural effusions. CONCLUSION: 1. Marked gallbladder wall thickening with minimal pericholecystic fluid. No stones or sludge. 2. Small bilateral pleural effusions. Dani Titus MD on December 12, 2017 at 15:54 Board Certified Radiologist. This report was verified electronically.
--- NOTE | 2017-12-12 17:32 | HHI.HCPN ---
Reason for visit a. To assist with evaluation and management of symptoms including: dyspnea, encephalopathy, seizures. b. To assist medical decision maker(s) with: better understanding of current medical conditions; weighing benefits/burdens of medical treatment options; making medical treatment decisions. (Marii Horowitz) Subjective/Interval History Patient seen to follow-up on symptoms of dyspnea, encephalopathy, seizures. Patient is currently intubated, not sedated since 12/03. She was intubated for airway protection 11/29. She is tolerating CPAP trials lasting from 8: 45 -15:00 , with some intermittent periods of 20-30 seconds of apnea. Spontaneous breathing trial stopped due to increasing apnea. Less cough today. No secretions noted. Saturating well on 40% FI02. Patient is unresponsive to noxious stimuli and otero not withdraw to either local or central pain triggers. She does not blink to threat or respond to command, today did not resist moving the eyelid for pupil exam. She is seen to spontaneously move her right hand from time to time or open her eyes but does not focus or track. She shows no recognition of family or surroundings. MRI shows faint diffusion restriction predominantly along the high parietal right convexity with minimal diffusion restriction on the left, pattern somewhat unusual for him not see with the asymmetry, possible embolic event. Followup CTA of neck showed no carotid stenosis. Head CTA showed no large vessel stenosis or aneurysm. EEGs have been consistently abnormal, the most recent showing no epileptiform features. She is on Cerebyx, but phenobarbital was stopped 12/11 to evaluate response. She was previously on Keppra but that was discontinued 12/05. She remains on seizure precautions. Mosts recent EEG on 12/11 showed an abnormal study consistent with severe encephalopathy, more prominent slowing over the right hemisphere. There has been a newly seen increase in transaminases today of uncertain significance. Liver US done today showed marked gallbladder wall thickening with minimal pericholecystic fluid. No stones or sludge and small bilateral pleural effusions. . Family/friend interactions Spoke with son at bedside. Dr. Neville had called him, but he had missed the call and was awaiting a call back from him to clarify to significance of recent studies and opine on a prognosis for meaningful recovery. He states that he is prepared for the worst and feels as though what is being done so far is more than his mother would have wanted. He inquired as to the time logistics of withdrawal procedures and anticipatory guidance was given. He also inquired as to the timeline for trach/PEG decision and when the decision had to be made. She has been intubated since 11/29, 13 days ago and the time for that decision is approaching. He wishes to obtain the opinion of neurology prior to making that decision, which seems reasonable. He states that if his mother could not live a life with reasonable quality, she would not want heroic measures. . (Marii Horowitz) Advance Directives Advance Directive Specifics Health Care Surrogate(s): None available. Per [place] statutes, her son Jamin would be the healthcare proxy and is willing to serve. . Documented care wishes: No documented care wishes available. . (Marii Horowitz) Objective Vital Signs Date Time Temp Pulse Resp B/P (MAP) Pulse Ox O2 Delivery O2 Flow Rate FiO2 12/12/17 16:00 40 12/12/17 16:00 92 12/12/17 16:00 98.4 92 12 117/65 (82) 100 12/12/17 15:00 90 11 106/60 (75) 99 12/12/17 15:00 40 12/12/17 14:00 94 15 119/69 (86) 100 12/12/17 14:00 90 12/12/17 14:00 100 40 12/12/17 13:00 88 21 101/64 (76) 99 12/12/17 12:00 96 12/12/17 12:00 40 12/12/17 12:00 99.3 96 19 111/55 (73) 99 12/12/17 11:00 90 10 109/60 (76) 99 12/12/17 10:30 98 40 12/12/17 10:00 98.6 102 22 111/58 (75) 96 12/12/17 10:00 96 12/12/17 09:03 98 16 111/59 (76) 99 12/12/17 09:03 99 12/12/17 09:00 99 12/12/17 09:00 100 25 99 12/12/17 08:45 98 40 12/12/17 08:03 88 11 97/56 (70) 99 12/12/17 08:03 99 12/12/17 08:00 86 12 99 12/12/17 08:00 99 12/12/17 08:00 96 12/12/17 08:00 40 12/12/17 07:03 100 12/12/17 07:03 86 11 108/58 (75) 100 12/12/17 07:00 100 12/12/17 07:00 84 11 100 12/12/17 06:09 92 12/12/17 06:03 94 15 117/64 (81) 99 12/12/17 05:03 98 12 117/64 (81) 98 12/12/17 04:20 98 40 12/12/17 04:03 98.6 98 14 117/65 (82) 98 12/12/17 04:00 98 12/12/17 04:00 40 12/12/17 03:03 98 18 114/63 (80) 96 12/12/17 02:03 92 15 114/71 (85) 98 12/12/17 02:00 92 12/12/17 01:20 98 40 12/12/17 01:03 76 12 97/56 (70) 100 12/12/17 00:34 79 12/12/17 00:03 98.0 78 12 107/65 (79) 99 12/12/17 00:00 40 12/11/17 23:10 99 40 12/11/17 23:02 86 12 116/64 (81) 100 12/11/17 22:30 100 40 12/11/17 22:02 90 13 118/63 (81) 100 12/11/17 22:00 90 12/11/17 21:02 88 12 114/67 (83) 100 12/11/17 20:02 98.0 84 12 119/74 (89) 100 12/11/17 20:00 97 Mechanical Ventilator 40 Bi-Pap 12/11/17 20:00 86 12/11/17 20:00 40 12/11/17 19:20 100 40 12/11/17 19:11 86 11 118/69 (85) 100 12/11/17 18:00 86 12/11/17 18:00 86 14 122/71 (88) 100 Intake & Output 12/12/17 12/12/17 07:00 19:00 Intake Total 1030 ml Output Total 600 ml Balance 430 ml IV Total 100 ml Tube Feeding 430 ml Other 500 ml Output Urine Total 600 ml # Bowel Movements 0 Physical Exam CONSTITUTIONAL/GENERAL: This is an adequately nourished patient, nonresponsive on mech vent TUBES/LINES/DRAINS: PIV LUE x 2. Méndez catheter . ETT. NGT SKIN: No jaundice, rashes, or lesions. No wounds seen anteriorly. Skin warm/ dry HEAD: Atraumatic. Normocephalic. EYES: Pupils equal and round and reactive. No scleral icterus. No injection or drainage. Fundi not examined. ENT: Nose without bleeding or purulent drainage. No something CARDIOVASCULAR: Regular rate and rhythm without murmur. No JVD. Peripheral pulses symmetric. 2+ edema BUE, 1+ edema bilat feet RESPIRATORY/CHEST: Symmetric, unlabored respirations via ETT to mech vent. Clear to auscultation. Breath sounds equal bilaterally. GASTROINTESTINAL: Abdomen soft, round, nondistended. No palpable masses. Bowel sounds normoactive. +ngt left nare, TF infusing. GENITOURINARY: Without palpable bladder distension. Méndez catheter in place clear, yellow urine. MUSCULOSKELETAL: Extremities without clubbing, cyanosis. 2+ edema BUE. 1+ bilat feet. No mottling or clubbing. LYMPHATICS: No palpable cervical or supraclavicular adenopathy. NEUROLOGICAL: on no sedation. Not responsive to my exam. No eye opening to pain stimuli, no resistance to eyelid retraction . No withdrawal to pain in all 4 extremities. PSYCHIATRIC: Not responsive. . (Marii Horowitz) Diagnostic Tests Laboratory Laboratory Tests Test 12/11/17 04:15 12/11/17 18:46 White Blood Count 13.0 TH/MM3 (4.0-11.0) Red Blood Count 2.99 MIL/MM3 (4.00-5.30) Hemoglobin 9.7 GM/DL (11.6-15.3) Hematocrit 28.9 % (35.0-46.0) Mean Corpuscular Volume 96.7 FL (80.0-100.0) Mean Corpuscular Hemoglobin 32.3 PG (27.0-34.0) Mean Corpuscular Hemoglobin Concent 33.5 % (32.0-36.0) Red Cell Distribution Width 14.6 % (11.6-17.2) Platelet Count 468 TH/MM3 (150-450) Mean Platelet Volume 8.6 FL (7.0-11.0) Neutrophils (%) (Auto) 81.5 % (16.0-70.0) Lymphocytes (%) (Auto) 10.7 % (9.0-44.0) Monocytes (%) (Auto) 5.6 % (0.0-8.0) Eosinophils (%) (Auto) 1.8 % (0.0-4.0) Basophils (%) (Auto) 0.4 % (0.0-2.0) Neutrophils # (Auto) 10.6 TH/MM3 (1.8-7.7) Lymphocytes # (Auto) 1.4 TH/MM3 (1.0-4.8) Monocytes # (Auto) 0.7 TH/MM3 (0-0.9) Eosinophils # (Auto) 0.2 TH/MM3 (0-0.4) Basophils # (Auto) 0.1 TH/MM3 (0-0.2) CBC Comment AUTO DIFF Differential Comment AUTO DIFF CONFIRMED Blood Urea Nitrogen 21 MG/DL (7-18) Creatinine 0.75 MG/DL (0.50-1.00) Random Glucose 216 MG/DL (74-106) Total Protein 5.6 GM/DL (6.4-8.2) 5.5 GM/DL (6.4-8.2) Albumin 1.7 GM/DL (3.4-5.0) 1.7 GM/DL (3.4-5.0) Calcium Level 8.1 MG/DL (8.5-10.1) Alkaline Phosphatase 558 U/L (45-117) 711 U/L (45-117) Aspartate Amino Transf (AST/SGOT) 390 U/L (15-37) 468 U/L (15-37) Alanine Aminotransferase (ALT/SGPT) 194 U/L (10-53) 274 U/L (10-53) Total Bilirubin 0.2 MG/DL (0.2-1.0) LESS THAN 0.1 MG/DL Sodium Level 142 MEQ/L (136-145) Potassium Level 4.1 MEQ/L (3.5-5.1) Chloride Level 109 MEQ/L (98-107) Carbon Dioxide Level 28.7 MEQ/L (21.0-32.0) Anion Gap 4 MEQ/L (5-15) Estimat Glomerular Filtration Rate 78 ML/MIN (>89) Direct Bilirubin 0.1 MG/DL (0.0-0.2) Indirect Bilirubin 0.0 MG/DL (0.0-0.8) (Marii Horowitz) Result Diagram: 12/11/17 0415 12/11/17 0415 Microbiology Microbiology Date/Time Source Procedure Growth Status 12/08/17 06:13 Blood Peripheral Aerobic Blood Culture - Preliminary NO GROWTH IN 4 DAYS Resulted 12/08/17 06:13 Blood Peripheral Anaerobic Blood Culture - Preliminary NO GROWTH IN 4 DAYS Resulted 12/02/17 15:29 Cerebral Spinal Fluid Lumbar Puncture Gram Stain - Final Complete 12/02/17 15:29 Cerebral Spinal Fluid Lumbar Puncture CSF Culture - Final NO GROWTH IN 72 HOURS Complete 12/08/17 06:00 Sputum Nasal Tracheal Aspirate Gram Stain - Final Complete 12/08/17 06:00 Sputum Culture - Final Escherichia Coli Complete 12/08/17 06:09 Urine Catheterized Urine Urine Culture - Final Anna Glabrata Complete . Imaging Last Impressions Neck CTA 12/11/17 0000 Signed Impressions: Service Date/Time: Monday, December 11, 2017 23:08 - CONCLUSION: No carotid stenosis. Ac Davis MD Head CTA 12/11/17 0000 Signed Impressions: Service Date/Time: Monday, December 11, 2017 23:08 - CONCLUSION: 1. No large vessel stenosis or aneurysm. Ac Davis MD Brain MRI 12/11/17 0000 Signed Impressions: Service Date/Time: Monday, December 11, 2017 11:12 - CONCLUSION: 1. Faint diffusion restriction predominately along the high right parietal convexity with minimal diffusion restriction on the left. Pattern is somewhat unusual for anoxia with the asymmetry. Possible embolic event. CTA of the cervical and intracranial vessels to be performed for further characterization. 2. Chronic changes with some periventricular small vessel ischemic demyelination. 3. Mild ventricular prominence. In the appropriate clinical setting, findings could represent normal pressure hydrocephalus. 4. Bilateral mastoiditis. Mild chronic sinus disease in the sphenoid bilaterally. Dani Titus MD Chest X-Ray 12/08/17 0000 Signed Impressions: Service Date/Time: Friday, December 08, 2017 08:09 - CONCLUSION: 1. Interval removal of left internal jugular central venous line. 2. Mild improvement in pulmonary opacities. Shaquille Haley MD Gall Bladder Ultrasound 12/03/17 0000 Signed Impressions: Service Date/Time: Sunday, December 03, 2017 07:59 - CONCLUSION: 1. Ascites and bilateral pleural effusions. 2. Mildly distended gallbladder without evidence of wall thickening or cholelithiasis. 3. Otherwise unremarkable exam. Boo Cartwright MD Lumbar Puncture Fluoroscopy 12/02/17 0000 Signed Impressions: Service Date/Time: Saturday, December 02, 2017 15:28 - CONCLUSION: Uncomplicated fluoroscopically guided lumbar puncture. Aly Leigh MD Renal Ultrasound 11/29/17 1656 Signed Impressions: Service Date/Time: Wednesday, November 29, 2017 13:16 - CONCLUSION: 1. Both kidneys are sonographically normal without hydronephrosis or nephrolithiasis. 2. Very abnormal appearance of the gallbladder with mural thickening and minimal pericholecystic fluid Dani Titus MD Head CT 11/28/17 0000 Signed Impressions: Service Date/Time: November 15:46 - CONCLUSION: 1. Ventriculomegaly suggesting central cerebral atrophy versus hydrocephalus. Clinical correlation is recommended. 2. No acute infarct, acute hemorrhage, midline shift or extra-axial fluid collections. Dev Christopher MD Procedures 11/29: Orotracheal intubation 11/29: Right chest tube placement secondary to iatrogenic pneumothorax. 11/29: Bronchoscopy 11/29: Left IJ central line placement 11/30: Bronchoscopy . (Marii Horowitz) Assessment and Plan Disease Oriented Problem List: (1) Hyperkalemia (2) Acute renal failure (3) DKA (diabetic ketoacidoses) (4) Altered mental status (5) Metabolic acidosis (6) Hypotension (7) Seizure cerebral (8) Encephalopathy, metabolic (9) NSTEMI (non-ST elevated myocardial infarction) (10) UTI (urinary tract infection) (11) Type 1 diabetes (12) Leukocytosis (13) Respiratory failure (14) Hypertension Symptom Scale: (1) Encephalopathy 0-10 Scale: Unable to quantify (2) Dyspnea 0-10 Scale: Unable to quantify Pertinent Non-Medical Issues Psychosocial:Originally from [facility], moved here to [place] about 3 years ago to be closer to her sister and mother. Her son Jamin lives in [place]. 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 Supported locally by her sister , and significant other León Robertsалександр. Patient and her sister Evelyn take turns helping to care for their mother who is in her 90s. Spiritual:Yarsani adonay, attended [facility] [employer]. 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 Legal:Pt unable to participate due to encephalopathy, not clear she will regain ability to participate. Her sister has been involved in her care and decisions. She also is reported to have one son who lives in [place]. Not known at this time if she has advanced directives or health care surrogate designation. If she does not have advanced directives, then her son or any additional children would be appropriate legal proxy per [place] statutes ( if they wish to serve as such). Ethical issues impacting care: No ethical issues identified. Important Contacts sister Evelyn Obrien at [phone] Son Jamin (in [place]) Significant other León De León [phone]/ [phone] . Prognosis This patient was initially admitted for altered mental status, findings of DKA. She also suffered acute renal failure, respiratory failure. She were now remains profoundly encephalopathic on mechanical vent at this time unable to medically wean. 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 It is likely she will require tracheostomy and PEG tube to continue aggressive treatment course. . Code Status: Full Code Plan * Legal decision maker:Pt unable to participate due to encephalopathy, not clear she will regain ability to participate. Her son, Jamin, has traveled from [place] to assist in decision making and per [place] Statutes, in the absence of Advanced Directives, he would be the legal proxy decision maker. * Goals: TBD, at this time the family is considering information received and family meeting and are awaiting input from the neurologist and imaging study to make further decisions. * CODE STATUS: Full code by default * SYMPTOMS: --Encephalopathy-admitted with DKA, altered mental status. Initial MRI, CSF etc. negative. Repeat MRI findings area of diffusion restriction on right parietal convexity with less diffusion restriction on the left. Consistent with 12/11 EEG showing severe encephalopathy with more prominent slowing over the right hemisphere. CTA of neck and brain showed no acute findings. Not withdrawing to noxious stimuli. --Dyspnea-emergently intubated for acute respiratory failure, inability to protect airway. Remains on mechanical vent. Now having apnea on CPAP trials when she had previously been tolerating for 4-6 hours. Family aware of upcoming trach/PEG decision and are contemplating their goal of care options, which may change based on neurology input after reviewing imaging studies. --Seizures-she is currently on Cerebyx. Phenobarbital has been held since yesterday to determine effect on level of consciousness. She remains on seizure precautions. Last EEG's on 12/07 and 12/11 showed no epileptiform activity. * Palliative care will continue to follow during hospital course as condition evolves, to assist patient/decision-maker with understanding of medical conditions, weighing benefits/burdens of treatment options, for clarification of goals of treatment. Additionally will assist with any symptoms of palliative concern . (Marii Horowitz) Attestation To help prompt me to consider important information that might be impacting today's encounter and assessment, information from prior notes written by myself or my colleagues may have been "brought forward" into today's note. My signature on this note, however, is an attestation that I personally performed the exam, history, and/or decision-making noted today, and, unless otherwise indicated, the interactions with patient, family, and staff as well as the review of records all occurred today. I also attest that the listed assessment and stated plan reflect my best clinical judgment today based on the combination of historical information, prior notes, and today's exam/ interactions. When time spent is documented, it refers only to time spent today by the signer, or if indicated, combined time spent today by collaborating physician/nurse practitioner. . (Marii Horowitz) Collaborating MD Comments Chart reviewed. Case discussed with palliative care nurse practitioner. Above LISBET note reviewed and I concur. . (Oren Gan MD) Marii Horowitz Dec 12, 2017 17:32 Oren Gan MD Jan 25, 2018 12:15
[2017-12-12] MEDS: cefTRIAXone INJ 2,000 MG in SODIUM CHLORIDE 0.9% INJ 100 ML IV SCH (19:00)
--- NOTE | 2017-12-12 19:06 | HHI.IDPN ---
Subjective Subjective Remarks pt remains severely encephalopathic, not waking up off sedation remains on vent afebrile BP stable now LFTs are elevated US is abnormal with gallbladeer thickining Antibiotics fluconazol cefepime Lines cvl discontinued piv in each arm Allergies: Coded Allergies: No Known Allergies (Unverified Allergy, Unknown, 11/28/17) Objective . Vital Signs Date Time Temp Pulse Resp B/P (MAP) Pulse Ox O2 Delivery O2 Flow Rate FiO2 12/12/17 18:44 98 40 12/12/17 18:00 86 12/12/17 18:00 92 16 119/68 (85) 99 12/12/17 17:00 90 16 120/65 (83) 100 12/12/17 16:00 40 12/12/17 16:00 92 12/12/17 16:00 98.4 92 12 117/65 (82) 100 12/12/17 15:00 90 11 106/60 (75) 99 12/12/17 15:00 40 12/12/17 14:00 94 15 119/69 (86) 100 12/12/17 14:00 90 12/12/17 14:00 100 40 12/12/17 13:00 88 21 101/64 (76) 99 12/12/17 12:00 96 12/12/17 12:00 40 12/12/17 12:00 99.3 96 19 111/55 (73) 99 12/12/17 11:00 90 10 109/60 (76) 99 12/12/17 10:30 98 40 12/12/17 10:00 98.6 102 22 111/58 (75) 96 12/12/17 10:00 96 12/12/17 09:03 98 16 111/59 (76) 99 12/12/17 09:03 99 12/12/17 09:00 99 12/12/17 09:00 100 25 99 12/12/17 08:45 98 40 12/12/17 08:03 88 11 97/56 (70) 99 12/12/17 08:03 99 12/12/17 08:00 86 12 99 12/12/17 08:00 99 12/12/17 08:00 96 12/12/17 08:00 40 12/12/17 07:03 100 12/12/17 07:03 86 11 108/58 (75) 100 12/12/17 07:00 100 12/12/17 07:00 84 11 100 12/12/17 06:09 92 12/12/17 06:03 94 15 117/64 (81) 99 12/12/17 05:03 98 12 117/64 (81) 98 12/12/17 04:20 98 40 12/12/17 04:03 98.6 98 14 117/65 (82) 98 12/12/17 04:00 98 12/12/17 04:00 40 12/12/17 03:03 98 18 114/63 (80) 96 12/12/17 02:03 92 15 114/71 (85) 98 12/12/17 02:00 92 12/12/17 01:20 98 40 12/12/17 01:03 76 12 97/56 (70) 100 12/12/17 00:34 79 12/12/17 00:03 98.0 78 12 107/65 (79) 99 12/12/17 00:00 40 12/11/17 23:10 99 40 12/11/17 23:02 86 12 116/64 (81) 100 12/11/17 22:30 100 40 12/11/17 22:02 90 13 118/63 (81) 100 12/11/17 22:00 90 12/11/17 21:02 88 12 114/67 (83) 100 12/11/17 20:02 98.0 84 12 119/74 (89) 100 12/11/17 20:00 97 Mechanical Ventilator 40 Bi-Pap 12/11/17 20:00 86 12/11/17 20:00 40 12/11/17 19:20 100 40 12/11/17 19:11 86 11 118/69 (85) 100 12/12/17 12/12/17 12/13/17 15:00 23:00 07:00 Intake Total 500 ml Output Total 500 ml Balance 0 ml Other 500 ml Output Urine Total 500 ml Gastric Drainage Total 0 ml # Bowel Movements 0 . Laboratory Tests Test 12/11/17 04:15 White Blood Count 13.0 TH/MM3 Red Blood Count 2.99 MIL/MM3 Hemoglobin 9.7 GM/DL Hematocrit 28.9 % Mean Corpuscular Volume 96.7 FL Mean Corpuscular Hemoglobin 32.3 PG Mean Corpuscular Hemoglobin Concent 33.5 % Red Cell Distribution Width 14.6 % Platelet Count 468 TH/MM3 Mean Platelet Volume 8.6 FL Neutrophils (%) (Auto) 81.5 % Lymphocytes (%) (Auto) 10.7 % Monocytes (%) (Auto) 5.6 % Eosinophils (%) (Auto) 1.8 % Basophils (%) (Auto) 0.4 % Neutrophils # (Auto) 10.6 TH/MM3 Lymphocytes # (Auto) 1.4 TH/MM3 Monocytes # (Auto) 0.7 TH/MM3 Eosinophils # (Auto) 0.2 TH/MM3 Basophils # (Auto) 0.1 TH/MM3 CBC Comment AUTO DIFF Differential Comment AUTO DIFF CONFIRMED Laboratory Tests Test 12/11/17 04:15 12/11/17 18:46 Blood Urea Nitrogen 21 MG/DL Creatinine 0.75 MG/DL Random Glucose 216 MG/DL Total Protein 5.6 GM/DL 5.5 GM/DL Albumin 1.7 GM/DL 1.7 GM/DL Calcium Level 8.1 MG/DL Alkaline Phosphatase 558 U/L 711 U/L Aspartate Amino Transf (AST/SGOT) 390 U/L 468 U/L Alanine Aminotransferase (ALT/SGPT) 194 U/L 274 U/L Total Bilirubin 0.2 MG/DL LESS THAN 0.1 MG/DL Sodium Level 142 MEQ/L Potassium Level 4.1 MEQ/L Chloride Level 109 MEQ/L Carbon Dioxide Level 28.7 MEQ/L Anion Gap 4 MEQ/L Estimat Glomerular Filtration Rate 78 ML/MIN Direct Bilirubin 0.1 MG/DL Indirect Bilirubin 0.0 MG/DL Imaging Last Impressions Neck CTA 12/11/17 0000 Signed Impressions: Service Date/Time: Monday, December 11, 2017 23:08 - CONCLUSION: No carotid stenosis. Ac Davis MD Head CTA 12/11/17 0000 Signed Impressions: Service Date/Time: Monday, December 11, 2017 23:08 - CONCLUSION: 1. No large vessel stenosis or aneurysm. Ac Davis MD Brain MRI 12/11/17 0000 Signed Impressions: Service Date/Time: Monday, December 11, 2017 11:12 - CONCLUSION: 1. Faint diffusion restriction predominately along the high right parietal convexity with minimal diffusion restriction on the left. Pattern is somewhat unusual for anoxia with the asymmetry. Possible embolic event. CTA of the cervical and intracranial vessels to be performed for further characterization. 2. Chronic changes with some periventricular small vessel ischemic demyelination. 3. Mild ventricular prominence. In the appropriate clinical setting, findings could represent normal pressure hydrocephalus. 4. Bilateral mastoiditis. Mild chronic sinus disease in the sphenoid bilaterally. Dani Titus MD Chest X-Ray 12/08/17 0000 Signed Impressions: Service Date/Time: Friday, December 08, 2017 08:09 - CONCLUSION: 1. Interval removal of left internal jugular central venous line. 2. Mild improvement in pulmonary opacities. Shaquille Haley MD Gall Bladder Ultrasound 12/03/17 0000 Signed Impressions: Service Date/Time: Sunday, December 03, 2017 07:59 - CONCLUSION: 1. Ascites and bilateral pleural effusions. 2. Mildly distended gallbladder without evidence of wall thickening or cholelithiasis. 3. Otherwise unremarkable exam. Boo Cartwright MD Lumbar Puncture Fluoroscopy 12/02/17 0000 Signed Impressions: Service Date/Time: Saturday, December 02, 2017 15:28 - CONCLUSION: Uncomplicated fluoroscopically guided lumbar puncture. Aly Leigh MD Renal Ultrasound 11/29/17 1656 Signed Impressions: Service Date/Time: Wednesday, November 29, 2017 13:16 - CONCLUSION: 1. Both kidneys are sonographically normal without hydronephrosis or nephrolithiasis. 2. Very abnormal appearance of the gallbladder with mural thickening and minimal pericholecystic fluid Dani Titus MD Head CT 11/28/17 0000 Signed Impressions: Service Date/Time: November 15:46 - CONCLUSION: 1. Ventriculomegaly suggesting central cerebral atrophy versus hydrocephalus. Clinical correlation is recommended. 2. No acute infarct, acute hemorrhage, midline shift or extra-axial fluid collections. Dev Christopher MD Physical Exam CONSTITUTIONAL/GENERAL: This is an adequately nourished patient, in no apparent distress. TUBES/LINES/DRAINS: SKIN: No jaundice, rashes, or lesions. Skin temperature appropriate. Not diaphoretic. CARDIOVASCULAR: Regular rate and rhythm without murmurs, gallops, or rubs. No JVD. Peripheral pulses symmetric. RESPIRATORY/CHEST: Symmetric, unlabored respirations. Clear to auscultation. Breath sounds equal bilaterally. No wheezes, rales, or rhonchi. GASTROINTESTINAL: Abdomen soft, moderately distended, no reaction to palpation. No hepato-splenomegaly, or palpable masses. No guarding. Bowel sounds present. PEG in place GENITOURINARY: Without palpable bladder distension. Méndez catheter in place with clear yellow urine MUSCULOSKELETAL: Extremities without clubbing, cyanosis, or edema. No joint tenderness or effusion noted. No calf tenderness. No mottling or clubbing. LYMPHATICS: No palpable cervical or supraclavicular adenopathy. NEUROLOGICAL: Unresponsive. + spontaneous movements RUE, nothing to commands; no eye opening to command Gag and cough present PSYCHIATRIC: unable to assess Assessment & Plan Remarks sepsis: on [resentation fever up to 100.7, leukocytopsis with WBC of 25 K and lactic acidosis DKA - probably 2/2 sepiss: resoplved Acute VDRF, BAL, PNA, now growing hoskins S E.coli No e/o Meningitis on CSF Probably anoxic encephalopathy - neurology ff No e/o cholecytitis - US findings were dw Dr Titus - further w/u with RUQ US was recom'd Crititical, stable Worseing renal fnx: resolved Funguria ? clin significance New issue : elevated LFTs - cont CFTX - cont fluconzole for now - fu LFTs - repeat US gallbladder monitor renal fnx awaiting neurologist evalution of the brain lesions elder palliative care Anh Childs MD Dec 12, 2017 19:06
[2017-12-12 20:24] LABS: ALBUMIN 1.8 GM/DL (3.4-5.0)
[2017-12-12 20:27] LABS: ALT (GPT) 259 U/L (10-53); AST (GOT) 271 U/L (15-37); DIRECT BILIRUBIN ADULT 0.1 MG/DL (0.0-0.2)
[2017-12-12 20:29] LABS: TOTAL BILIRUBIN ADULT LESS THAN 0.1 MG/DL (0.2-1.0); TOTAL PROTEIN 5.7 GM/DL (6.4-8.2)
[2017-12-12 20:30] LABS: ALKALINE PHOSPHATASE 776 U/L (45-117)
[2017-12-12] MEDS: ATORVASTATIN 10 MG TAB PO SCH (22:13)
[2017-12-13] VITALS (40 sets, daily range): BP systolic 96–130; BP diastolic 52–76; PULSE 76–96; RESP 4–17; TEMP 97.8–99.4; O2SAT 93–100
[2017-12-13] MEDS: HEPARIN SODIUM - SQ 10,000 UNITS/ML VIAL SQ SCH ×3 (02:23→18:00)
[2017-12-13] MEDS: RESP: ALBUTEROL 2.5 MG/3 ML NEB (PRN) INH (02:48)
[2017-12-13] MEDS: FREE WATER G-TUBE SCH ×4 (03:00→20:19)
[2017-12-13] MEDS: INSULIN ASPART SUPPLEMENTAL SCALE SQ SCH ×6 (03:12→23:30)
[2017-12-13] MEDS: CHLORHEXIDINE GLUCONATE 2 % 1 PACK (2 CLOTHS) TOP SCH (03:12)
[2017-12-13 04:26] LABS: AUTOMATED NEUTROPHIL # 7.1 TH/MM3 (1.8-7.7); BASOPHIL # 0.1 TH/MM3 (0-0.2); BASOPHIL % 0.7 % (0.0-2.0); EOSINOPHIL # 0.2 TH/MM3 (0-0.4); EOSINOPHIL % 1.6 % (0.0-4.0); HEMATOCRIT 28.7 % (35.0-46.0); HEMOGLOBIN 9.2 GM/DL (11.6-15.3); LYMPH % 16.7 % (9.0-44.0); LYMPHOCYTE # 1.7 TH/MM3 (1.0-4.8); MEAN CELL VOLUME 96.3 FL (80.0-100.0); MEAN CORPUSCULAR HEMOGLOBIN 30.8 PG (27.0-34.0); MEAN PLATELET VOLUME 8.6 FL (7.0-11.0); MONO % 9.5 % (0.0-8.0); NEUT % 71.5 % (16.0-70.0); PLATELET COUNT 506 TH/MM3 (150-450); RED BLOOD COUNT 2.98 MIL/MM3 (4.00-5.30); RED CELL DISTRIBUTION WIDTH 14.3 % (11.6-17.2); WHITE BLOOD COUNT 10.1 TH/MM3 (4.0-11.0)
[2017-12-13 04:36] LABS: CHLORIDE 110 MEQ/L (98-107); SODIUM (NA) 144 MEQ/L (136-145)
[2017-12-13 04:41] LABS: ALBUMIN 1.8 GM/DL (3.4-5.0); BICARBONATE 27.9 MEQ/L (21.0-32.0); BLOOD UREA NITROGEN 17 MG/DL (7-18); GLUCOSE,RANDOM 142 MG/DL (74-106)
[2017-12-13 04:44] LABS: ALT (GPT) 238 U/L (10-53); AST (GOT) 220 U/L (15-37); CREATININE 0.55 MG/DL (0.50-1.00); GLOMERULAR FILTRATION RATE 112 ML/MIN (>89)
[2017-12-13 04:45] LABS: TOTAL BILIRUBIN ADULT 0.3 MG/DL (0.2-1.0); TOTAL PROTEIN 5.6 GM/DL (6.4-8.2)
[2017-12-13 04:47] LABS: ALKALINE PHOSPHATASE 753 U/L (45-117)
--- NOTE | 2017-12-13 06:38 | HHI.CCPN ---
Subjective Remarks/Hospital Course This is a 51-year-old female. Date of admission 11/28/2017. Past medical history includes diabetes mellitus type 1 uncontrolled insulin- dependent with retinopathy on home insulin pump, hypertension, allergic rhinitis and chronic benzodiazepine use. She also has history of breast cancer on raloxifene she originally presented to [facility] ED During the workup, patient was noted to have a blood sugar of 808. Elevated acetone. Sodium 135. Potassium 6.0. Ferritin 2.1. Leukocytosis 25,000. Macrocytic anemia. UA negative for infectious etiology. She was bolused with 3 L of 0.9% NaCl IV fluid bolus. She is received 3 ampules of sodium bicarbonate and 1 g calcium gluconate. Chest x-ray post procedure revealed the CT scan of the head is read by the radiologist as ventriculomegaly but otherwise no acute findings. 11/29: Patient had nonrebreather off all night. PTX now 8 mm. Yells "Help me " "I don't know" Gap has closed, will transition back to SQ insulin if able to pass swallow. Replacing lytes. 11/30: Patient opens eyes to voice. Leftward gaze. Frequent blinking. Withdraws to stimulation bilateral lower extremities. T-max 99.5. Remains on norepinephrine and phenylephrine drips. MRI brain revealed ventriculomegaly. No acute signs of CVA. Echocardiogram EF 40%. 12/01: Afebrile. Patient remains off sedation approximately 24 hours nonresponsive. EEG in process. BAL revealed gram-negative rods the patient continues on Zosyn. The patient remains on vasopressors norepinephrine, vasopressin, and phenylephrine. Versed infusion restarted secondary to seizure activity noted on repeat EEG this a.m.. 12/02: Afebrile. The patient is scheduled for lumbar puncture this a.m., INR 1.0 patient has been off subcu heparin approximately 3 days. The patient continues on Versed and fentanyl infusions to maintain ventilator synchrony and avoidance of subclinical seizures which were noted on the EEG yesterday. The patient continues on multiple vasopressors to include norepinephrine and phenylephrine and vasopressin. Vasopressin currently being weaned off. The patient continues to have persistent leukocytosis though it is slightly downtrending plan for ID consult today appreciate recommendations. Bronchial washings resulted E. coli, currently patient continues on Zosyn. Patient was noted to have a positive fluid balance yesterday the patient received 20 mg of Lasix with adequate diuresis the patient noted to have a sodium level slightly decreased at 135 IV fluids mixed in 0.9 normal saline. 12/03: No acute events overnight lumbar puncture performed yesterday results pending. Dilantin level therapeutic. Phenobarbital level pending. Patient off vasopressin 24 hours. Phenylephrine currently being weaned off. Patient noted to be anemic 1 unit packed cells will be transfused today no pneumothorax chest tube now placed to waterseal today. 12/04: T-max 99.4. Repeat EEG performed today. Patient now withdrawing to pain 4 extremities, and open eyes to painful stimulus. Patient noted to move bilateral lower extremities 1 this shift. Patient tolerating tube feeds, overbreathing vent will begin CPAP trials in the a.m. if clinically stable. Phenylephrine completely discontinued overnight. Norepinephrine has been decreased to 3 mics/min. hemoglobin stable. 12/05: Afebrile. Patient was weaned off of norepinephrine last p.m.. The patient has been off sedation for greater than 48 hours, no change in neurological status opens eyes to deep stimulation, moves extremities 4 withdrawing to painful stimuli. CPAP trials initiated this a.m. the patient tolerated CPAP for approximately 6.5 hours. Chest x-ray remains unchanged no pneumo thorax, plan for removal of chest tube this evening. 12/06 No events overnight. On no sedation. Afebrile. unresponsive s/p removal chest tube yesterday.. 12/07 versed drip off since 12/04.. Eyes open to noxious stimuli, spontaneously moved R hand, withdraws x4. Temp max 99.3. WBC 11.2 today. Remains off pressors. On CPAP 05/23 and tolerating Subjective: 12/08. Temp max 100.4 overnight. Blood, urine, sputum cultures were sent. White blood cell count 13 this morning. Blood pressure was down to 84/46 with map of 56 this morning. Diuresed nearly 4 L yesterday with Lasix 40 IV q12, creatinine increased today. Tolerating tube feeds. Liquid stool x3 overnight. Apneic during multiple attempts at CPAP this morning. No neuro change. EEG bilateral slowing. Bihemispheric abnormalities. No epileptiform features 12/09: Remains encephalopathic, orally intubated on mechanical ventilation. Tolerating tube feeds. Not on any sedation. 12/10: Remains encephalopathic, orally intubated on mechanical ventilation. Tolerating tube feeds. Minimal eye opening with painful stimuli however extremely poor gag response. 12/11: Remains encephalopathic, orally intubated on mechanical ventilation. Tolerating tube feeds. Awaiting MRI/ EEG. 12/12: Remains encephalopathic, orally intubated on mechanical ventilation. No significant improvement in neurologic status noted. Tolerating tube feeds. EEG very abnormal more on the right. MRI brain done yesterday with high parietal lobe ischemic changes however CTA with no major vessel stenosis or aneurysm. 12/13 No events overnight. Remains intubated unresponsive. Afebrile. On no drips. Objective Vital Signs Date Time Temp Pulse Resp B/P (MAP) Pulse Ox O2 Delivery O2 Flow Rate FiO2 12/13/17 06:08 95 12/13/17 06:03 13 128/65 (86) 96 12/13/17 04:11 40 12/13/17 03:03 97.8 12/12/17 19:00 Mechanical Ventilator 12/09/17 19:30 2.00 Intake and Output 12/13/17 12/13/17 12/14/17 08:00 16:00 00:00 Output Total 800 ml Balance -800 ml Result Diagram: 12/13/17 0413 12/13/17 0413 Other Results Laboratory Tests Test 12/12/17 20:00 12/13/17 04:13 Total Bilirubin LESS THAN 0.1 MG/DL 0.3 MG/DL Direct Bilirubin 0.1 MG/DL Indirect Bilirubin 0.0 MG/DL Aspartate Amino Transf (AST/SGOT) 271 U/L 220 U/L Alanine Aminotransferase (ALT/SGPT) 259 U/L 238 U/L Alkaline Phosphatase 776 U/L 753 U/L Total Protein 5.7 GM/DL 5.6 GM/DL Albumin 1.8 GM/DL 1.8 GM/DL White Blood Count 10.1 TH/MM3 Red Blood Count 2.98 MIL/MM3 Hemoglobin 9.2 GM/DL Hematocrit 28.7 % Mean Corpuscular Volume 96.3 FL Mean Corpuscular Hemoglobin 30.8 PG Mean Corpuscular Hemoglobin Concent 32.0 % Red Cell Distribution Width 14.3 % Platelet Count 506 TH/MM3 Mean Platelet Volume 8.6 FL Neutrophils (%) (Auto) 71.5 % Lymphocytes (%) (Auto) 16.7 % Monocytes (%) (Auto) 9.5 % Eosinophils (%) (Auto) 1.6 % Basophils (%) (Auto) 0.7 % Neutrophils # (Auto) 7.1 TH/MM3 Lymphocytes # (Auto) 1.7 TH/MM3 Monocytes # (Auto) 1.0 TH/MM3 Eosinophils # (Auto) 0.2 TH/MM3 Basophils # (Auto) 0.1 TH/MM3 CBC Comment DIFF FINAL Differential Comment Blood Urea Nitrogen 17 MG/DL Creatinine 0.55 MG/DL Random Glucose 142 MG/DL Calcium Level 8.0 MG/DL Sodium Level 144 MEQ/L Potassium Level 4.3 MEQ/L Chloride Level 110 MEQ/L Carbon Dioxide Level 27.9 MEQ/L Anion Gap 6 MEQ/L Estimat Glomerular Filtration Rate 112 ML/MIN Imaging Last Impressions Liver Ultrasound 12/12/17 0000 Signed Impressions: Service Date/Time: November 13:20 - CONCLUSION: 1. Marked gallbladder wall thickening with minimal pericholecystic fluid. No stones or sludge. 2. Small bilateral pleural effusions. Dani Titus MD Neck CTA 12/11/17 0000 Signed Impressions: Service Date/Time: Monday, December 11, 2017 23:08 - CONCLUSION: No carotid stenosis. Ac Davis MD Head CTA 12/11/17 0000 Signed Impressions: Service Date/Time: Monday, December 11, 2017 23:08 - CONCLUSION: 1. No large vessel stenosis or aneurysm. Ac Davis MD Brain MRI 12/11/17 0000 Signed Impressions: Service Date/Time: Monday, December 11, 2017 11:12 - CONCLUSION: 1. Faint diffusion restriction predominately along the high right parietal convexity with minimal diffusion restriction on the left. Pattern is somewhat unusual for anoxia with the asymmetry. Possible embolic event. CTA of the cervical and intracranial vessels to be performed for further characterization. 2. Chronic changes with some periventricular small vessel ischemic demyelination. 3. Mild ventricular prominence. In the appropriate clinical setting, findings could represent normal pressure hydrocephalus. 4. Bilateral mastoiditis. Mild chronic sinus disease in the sphenoid bilaterally. Dani Titus MD Chest X-Ray 12/08/17 0000 Signed Impressions: Service Date/Time: Friday, December 08, 2017 08:09 - CONCLUSION: 1. Interval removal of left internal jugular central venous line. 2. Mild improvement in pulmonary opacities. Shaquille Haley MD Gall Bladder Ultrasound 12/03/17 0000 Signed Impressions: Service Date/Time: Sunday, December 03, 2017 07:59 - CONCLUSION: 1. Ascites and bilateral pleural effusions. 2. Mildly distended gallbladder without evidence of wall thickening or cholelithiasis. 3. Otherwise unremarkable exam. Boo Cartwright MD Lumbar Puncture Fluoroscopy 12/02/17 0000 Signed Impressions: Service Date/Time: Saturday, December 02, 2017 15:28 - CONCLUSION: Uncomplicated fluoroscopically guided lumbar puncture. Aly Leigh MD Renal Ultrasound 11/29/17 1656 Signed Impressions: Service Date/Time: Wednesday, November 29, 2017 13:16 - CONCLUSION: 1. Both kidneys are sonographically normal without hydronephrosis or nephrolithiasis. 2. Very abnormal appearance of the gallbladder with mural thickening and minimal pericholecystic fluid Dani Titus MD Head CT 11/28/17 0000 Signed Impressions: Service Date/Time: November 15:46 - CONCLUSION: 1. Ventriculomegaly suggesting central cerebral atrophy versus hydrocephalus. Clinical correlation is recommended. 2. No acute infarct, acute hemorrhage, midline shift or extra-axial fluid collections. Dev Christopher MD Procedures 12/02-planned lumbar puncture Objective Remarks GENERAL: 61-year-old female critically ill currently orotracheally intubated SKIN: Warm and dry. No rash HEAD: Atraumatic. Normocephalic. EYES: Gaze conjugate. Pupils equal and round about 4 mm and reactive to 2 mm bilaterally. No scleral icterus. No injection. Scleral edema improved. ENT: No nasal bleeding or discharge. Mucous membranes pink and moist NECK: Trachea midline. No JVD. CARDIOVASCULAR: RRR. . No murmur RESPIRATORY: Orally intubated on mechanical ventilation, good air entry bilaterally, no wheezing or crackles GASTROINTESTINAL: NGT L nare with tube feeds running. Abdomen soft, non-tender, nondistended. Bowel sounds present. MUSCULOSKELETAL: Edema improved, ~ 1+ of hands and ble. NEUROLOGICAL: Pupils reactive as per above + cough + gag. Eyes open to deep central noxious stimuli. Withdraws with all extremities. Date of Insertion: Nov 28, 2017 Line: Central Venous Catheter Side: Left Location: Internal, Jugular A/P Assessment and Plan Neuro/Psych: Acute encephalopathy secondary to diabetic ketoacidosis Anxiety disorder NOS Benzodiazepine use Off sedation since 12/04. Neurology Dr. Neville Acetaminophen 650 mg by tube every 6 hours as needed fever CT brain 11/28 revealed Ventriculomegaly suggesting central cerebral atrophy versus hydrocephalus. Clinical correlation is recommended. No acute infarct, acute hemorrhage, midline shift or extra-axial fluid collections. She is on amitriptyline 10 mg daily at home. This has been held UDS negative MRI brain 11/29 revealed mild to moderate ventriculomegaly. EEG - 12/07 bihemispheric slowing. No epileptiform features. EEG 11/28- bihemispheric slowing with some left frontocentral sharp waves and phase reversal suggesting an epileptiform abnormality and possible structural lesion in this region. No ictal pattern present. 11/30 levetiracetam 500 mg IV every 12 hours after 1 g bolus, Keppra discontinued 12/05 per neurology Neurology -Dr. Neville, on Phenobarb 65mg Q8 (level was 15 on 12/06), Cerebyx 200mg/PE Q12. Phenytoin level 9.7, Albumin corrected 22. Discussed with Dr. Neville -stopping phenobarbital on 12/10. 12/02 Ophthalmology -no eye infection Lacri-Lube applied for scleral edema 12/02-lumbar puncture-negative. CSF HSV negative 12/03-cortisol level 17 ammonia level 22 12/11 EEG consistent with a severe encephalopathy. There is more prominent slowing over the right hemisphere. MRI brain done on 12/11 with ischemic changes high left parietal lobe however CTA brain with no major vessel stenosis or aneurysm. . CV: History of hypertension Shock, resolved Elevated troponin Acute systolic heart failure ejection fraction 40% NSTEMI cardiomyopathy Monitor HR and BP keep MAP>65mmHg on atorvastatin 10 mg by tube daily, will hold for elevated LFT's Continue aspirin 81 mg by tube daily 2D echocardiogram revealed EF around 40%. LV increased size. Septal hypokinesis. 12/03- Cardiology has signed off Resp: Acute hypoxemic respiratory failure Hemoptysis-resolved Tobacco abuse/ongoing Iatrogenic PTX status post chest tube placement ACV /08/23/39, Daily SBT. mental status prevents extubation at this time. Patient will need trach if family wants aggressive care Intubated 11/29 . Ventilator bundle Albuterol/ipratropium aerosols every 6 hours with albuterol aerosols every 2 hours as needed dyspnea 12/03 Right chest tube in placed to waterseal 11/29 Status post chest tube placement see documentation, removed 12/05. Status post bronchoscopy 11/29. GI: Moderate protein energy malnutrition Glucerna 1.5, change goal rate to 40 mL/h per nutrition recommendations. famotidine for GI prophylaxis Docusate sodium/senna 1 tablet twice daily for bowel regimen 12/03 gallbladder ultrasound -gallbladder mildly distended without evidence of wall thickening or cholelithiasis. There is ascites and pleural effusions. Continue multivitamin/thiamine. thiamine via og FEN/RENAL: BRIELLE- resolved Hypernatremia Monitor renal function, I/O's, electrolytes replacement per protocol. Free water 250ml Qq6 hours. Creatinine increased, edema down, hold lasix. Renal ultrasound revealed no medical renal disease. Endo: Insulin-dependent diabetes mellitus type 1 uncontrolled Diabetic ketoacidosis - resolved Originally, patient received 3 L normal saline in the ED along with 3 refills and bicarbonate, 1 ampule of calcium gluconate. Beta hydroxybutyrate cleared 11/29 Insulin pump was disconnected 11/28. According to sister Evelyn Obrien, patient had received a new insulin pump within the past 48 hours. She has no history of DKA in the past to her knowledge TSH 0.38 Continue SSI Novulog medium protocol with accucheck every 4 hours maintain euglycemia Levemir 7 q12 Heme: Leukocytosis- Resolved Macrocytic anemia Monitor CBC daily. Follow trends 12/03 transfused 1 unit of packed red blood cells ID: Community-acquired versus aspiration BC x2, UA (-) inf A/B negative 11/29 S/P bronchoscopy with sample sent from left lower lobe 11/29 Sputum (BAL)-E.coli, pansensitive ID is following, Dr. Childs On Rocephin/ oral fluconazole Vancomycin has been discontinued 12/06 per ID 12/02-lumbar puncture-negative Access PIV in place Left IJ CVL placed 11/29-12/07. Prophylaxis -GI -famotidine for stress ulcer prophylaxis -DVT -SCD/continue heparin SQ Dr. Munoz called patient's sister, Evelyn Gramajo, to update 12/08. No answer. RN states she hasn't visited in several days. Consulted palliative care to assist with deciding goals of therapy as patient appears to have significant encephalopathy Discussed with patient's family at bedside in length on 12/10 including patient' s son who arrived from [place] as well as sister. Explained encephalopathy and possible contributing factors. Discussed possible need for tracheostomy and PEG tube placement. Family voiced understanding and were agreeable with plan of care. Discussed with Dr. Neville on 12/10 who agrees with obtaining EEG and repeating MRI brain and will be discussing neurologic prognosis with patient's son following review of those results. Level 3 Edouard Mayo MD Dec 13, 2017 06:37
[2017-12-13] MEDS: CHLORHEXIDINE 0.12% (ORAL KIT) 15 ML CUP MT SCH ×2 (08:00→20:20)
[2017-12-13] MEDS: ARTIFICIAL TEARS OPTH OINT 3.5 APPLIC/3.5 GM TUBO EACH EYE SCH ×4 (09:00→20:20)
[2017-12-13] MEDS: INSULIN DETEMIR 100 UNITS/ML VIAL SQ SCH ×2 (09:00→20:20)
[2017-12-13] MEDS: SODIUM CHLORIDE 0.9% FLUSH 10 ML FLUSH IV FLUSH SCH ×3 (09:00→20:18)
[2017-12-13] MEDS: ASPIRIN 81 MG CHEW TAB CHEW SCH (10:54)
[2017-12-13] MEDS: MULTIVITAMIN TAB PO SCH (10:54)
[2017-12-13] MEDS: FAMOTIDINE 20 MG TAB NG SCH ×2 (10:54→20:18)
[2017-12-13] MEDS: FLUCONAZOLE 200 MG TAB PO SCH (10:54)
[2017-12-13] MEDS: THIAMINE HCL 100 MG TAB OG-TUBE SCH (10:54)
[2017-12-13] MEDS: FOSPHENYTOIN SODIUM 100 MG PE/2 ML VIAL IV SCH ×2 (10:55→20:19)
--- NOTE | 2017-12-13 11:06 | HHI.IDPN ---
Subjective Subjective Remarks pt remains severely encephalopathic, not waking up off sedation remains on vent afebrile BP stable now LFTs are elevated, though today they are better US is abnormal with gallbladeer thickining, GI was consulted Family is unsure on further level of care Antibiotics fluconazol cefepime Lines cvl discontinued piv in each arm Allergies: Coded Allergies: No Known Allergies (Unverified Allergy, Unknown, 11/28/17) Objective . Vital Signs Date Time Temp Pulse Resp B/P (MAP) Pulse Ox O2 Delivery O2 Flow Rate FiO2 12/13/17 06:08 95 12/13/17 06:03 92 13 128/65 (86) 96 12/13/17 05:29 94 12 119/68 (85) 93 12/13/17 05:12 94 12/13/17 04:11 98 40 12/13/17 04:03 92 12 113/61 (78) 99 12/13/17 04:00 40 12/13/17 03:03 97.8 80 12 96/54 (68) 99 12/13/17 02:17 81 12/13/17 02:03 80 12 97/52 (67) 97 12/13/17 01:04 99 40 12/13/17 01:03 96 13 115/61 (79) 99 12/13/17 00:03 92 14 122/75 (91) 99 12/13/17 00:00 40 12/13/17 00:00 90 12/12/17 23:03 78 12 107/62 (77) 100 12/12/17 22:48 82 12/12/17 22:28 100 40 12/12/17 22:03 88 12 111/59 (76) 100 12/12/17 21:03 90 12 120/66 (84) 100 12/12/17 20:03 98.8 84 11 104/61 (75) 100 12/12/17 20:00 82 12/12/17 20:00 40 12/12/17 19:39 99 40 12/12/17 19:03 92 12 123/62 (82) 100 12/12/17 19:00 99 Mechanical Ventilator 40 12/12/17 18:44 98 40 12/12/17 18:00 86 12/12/17 18:00 92 16 119/68 (85) 99 12/12/17 17:00 90 16 120/65 (83) 100 12/12/17 16:00 40 12/12/17 16:00 92 12/12/17 16:00 98.4 92 12 117/65 (82) 100 12/12/17 15:00 90 11 106/60 (75) 99 12/12/17 15:00 40 12/12/17 14:00 94 15 119/69 (86) 100 12/12/17 14:00 90 12/12/17 14:00 100 40 12/12/17 13:00 88 21 101/64 (76) 99 12/12/17 12:00 96 12/12/17 12:00 40 12/12/17 12:00 99.3 96 19 111/55 (73) 99 . Laboratory Tests Test 12/13/17 04:13 White Blood Count 10.1 TH/MM3 Red Blood Count 2.98 MIL/MM3 Hemoglobin 9.2 GM/DL Hematocrit 28.7 % Mean Corpuscular Volume 96.3 FL Mean Corpuscular Hemoglobin 30.8 PG Mean Corpuscular Hemoglobin Concent 32.0 % Red Cell Distribution Width 14.3 % Platelet Count 506 TH/MM3 Mean Platelet Volume 8.6 FL Neutrophils (%) (Auto) 71.5 % Lymphocytes (%) (Auto) 16.7 % Monocytes (%) (Auto) 9.5 % Eosinophils (%) (Auto) 1.6 % Basophils (%) (Auto) 0.7 % Neutrophils # (Auto) 7.1 TH/MM3 Lymphocytes # (Auto) 1.7 TH/MM3 Monocytes # (Auto) 1.0 TH/MM3 Eosinophils # (Auto) 0.2 TH/MM3 Basophils # (Auto) 0.1 TH/MM3 CBC Comment DIFF FINAL Differential Comment Laboratory Tests Test 12/11/17 18:46 12/12/17 20:00 12/13/17 04:13 Total Bilirubin LESS THAN 0.1 MG/DL LESS THAN 0.1 MG/DL 0.3 MG/DL Direct Bilirubin 0.1 MG/DL 0.1 MG/DL Indirect Bilirubin 0.0 MG/DL 0.0 MG/DL Aspartate Amino Transf (AST/SGOT) 468 U/L 271 U/L 220 U/L Alanine Aminotransferase (ALT/SGPT) 274 U/L 259 U/L 238 U/L Alkaline Phosphatase 711 U/L 776 U/L 753 U/L Total Protein 5.5 GM/DL 5.7 GM/DL 5.6 GM/DL Albumin 1.7 GM/DL 1.8 GM/DL 1.8 GM/DL Blood Urea Nitrogen 17 MG/DL Creatinine 0.55 MG/DL Random Glucose 142 MG/DL Calcium Level 8.0 MG/DL Sodium Level 144 MEQ/L Potassium Level 4.3 MEQ/L Chloride Level 110 MEQ/L Carbon Dioxide Level 27.9 MEQ/L Anion Gap 6 MEQ/L Estimat Glomerular Filtration Rate 112 ML/MIN Imaging Last Impressions Neck CTA 12/11/17 0000 Signed Impressions: Service Date/Time: Monday, December 11, 2017 23:08 - CONCLUSION: No carotid stenosis. Ac Davis MD Head CTA 12/11/17 0000 Signed Impressions: Service Date/Time: Monday, December 11, 2017 23:08 - CONCLUSION: 1. No large vessel stenosis or aneurysm. Ac Davis MD Brain MRI 12/11/17 0000 Signed Impressions: Service Date/Time: Monday, December 11, 2017 11:12 - CONCLUSION: 1. Faint diffusion restriction predominately along the high right parietal convexity with minimal diffusion restriction on the left. Pattern is somewhat unusual for anoxia with the asymmetry. Possible embolic event. CTA of the cervical and intracranial vessels to be performed for further characterization. 2. Chronic changes with some periventricular small vessel ischemic demyelination. 3. Mild ventricular prominence. In the appropriate clinical setting, findings could represent normal pressure hydrocephalus. 4. Bilateral mastoiditis. Mild chronic sinus disease in the sphenoid bilaterally. Dani Titus MD Chest X-Ray 12/08/17 0000 Signed Impressions: Service Date/Time: Friday, December 08, 2017 08:09 - CONCLUSION: 1. Interval removal of left internal jugular central venous line. 2. Mild improvement in pulmonary opacities. Shaquille Haley MD Gall Bladder Ultrasound 12/03/17 0000 Signed Impressions: Service Date/Time: Sunday, December 03, 2017 07:59 - CONCLUSION: 1. Ascites and bilateral pleural effusions. 2. Mildly distended gallbladder without evidence of wall thickening or cholelithiasis. 3. Otherwise unremarkable exam. Boo Cartwright MD Lumbar Puncture Fluoroscopy 12/02/17 0000 Signed Impressions: Service Date/Time: Saturday, December 02, 2017 15:28 - CONCLUSION: Uncomplicated fluoroscopically guided lumbar puncture. Aly Leigh MD Renal Ultrasound 11/29/17 [id number] Signed Impressions: Service Date/Time: Wednesday, November 29, 2017 13:16 - CONCLUSION: 1. Both kidneys are sonographically normal without hydronephrosis or nephrolithiasis. 2. Very abnormal appearance of the gallbladder with mural thickening and minimal pericholecystic fluid Dani Titus MD Head CT 11/28/17 0000 Signed Impressions: Service Date/Time: November 15:46 - CONCLUSION: 1. Ventriculomegaly suggesting central cerebral atrophy versus hydrocephalus. Clinical correlation is recommended. 2. No acute infarct, acute hemorrhage, midline shift or extra-axial fluid collections. Dev Christopher MD Physical Exam CONSTITUTIONAL/GENERAL: This is an adequately nourished patient, in no apparent distress. TUBES/LINES/DRAINS: SKIN: No jaundice, rashes, or lesions. Skin temperature appropriate. Not diaphoretic. CARDIOVASCULAR: Regular rate and rhythm without murmurs, gallops, or rubs. No JVD. Peripheral pulses symmetric. RESPIRATORY/CHEST: Symmetric, unlabored respirations. Clear to auscultation. Breath sounds equal bilaterally. No wheezes, rales, or rhonchi. GASTROINTESTINAL: Abdomen soft, moderately distended, no reaction to palpation. No hepato-splenomegaly, or palpable masses. No guarding. Bowel sounds present. PEG in place GENITOURINARY: Without palpable bladder distension. Méndez catheter in place with clear yellow urine MUSCULOSKELETAL: Extremities without clubbing, cyanosis, or edema. No joint tenderness or effusion noted. No calf tenderness. No mottling or clubbing. LYMPHATICS: No palpable cervical or supraclavicular adenopathy. NEUROLOGICAL: Unresponsive. + spontaneous movements RUE, nothing to commands; no eye opening to command Gag and cough present PSYCHIATRIC: unable to assess Assessment & Plan Remarks sepsis: on [resentation fever up to 100.7, leukocytopsis with WBC of 25 K and lactic acidosis DKA - probably 2/2 sepiss: resoplved Acute VDRF, BAL, PNA, now growing hoskins S E.coli No e/o Meningitis on CSF Probably anoxic encephalopathy - neurology ff No e/o cholecytitis - US findings were dw Dr Titus - further w/u with RUQ US was recom'd Crititical, stable Worseing renal fnx: resolved Funguria ? clin significance New issue : elevated LFTs - cont CFTX - cont fluconzole for now - fu LFTs - cholecystostomy placement ? awaiting neurologist evalution of the brain lesions dw palliative care Anh Childs MD Dec 13, 2017 11:06
--- NOTE | 2017-12-13 14:03 | HHI.HCPN ---
Reason for visit a. To assist with evaluation and management of symptoms including: dyspnea, encephalopathy, seizures. b. To assist medical decision maker(s) with: better understanding of current medical conditions; weighing benefits/burdens of medical treatment options; making medical treatment decisions. (Marii Horowitz) Subjective/Interval History Patient seen to follow-up on symptoms of dyspnea, encephalopathy, seizures. She remains on the ventilator and is undergoing a spontaneous breathing trial, which started at 8: 20 and ended at 10: 40. She was evaluated during SBT, respirations were shallow with coarse breath sounds and symmetric chest rise. Her rate was eupneic with apneic pauses. Her apneic pauses of greater than 30 seconds became more frequent and so was placed back on AC vent support. She remains on 40% FiO2/5/10 vent settings. She remains encephalopathic and does not respond to verbal commands or withdraw to painful stimuli. She did resist eyelid retraction today during pupil assessment. She has intermittent spontaneous movement of the right hand, nothing to command. She does not open her eyes or turn her head to sound. She is seen to have some spontaneous mouth movement and is seen to be biting on the ET tube suspicious for seizures. She remains on Cerebyx. Last phenytoin level checked on 12/09 was 8.7 (10.0-20.0). She had previously been on phenobarbital for seizure control, however this was held 12/10 to assess possible sedation to better evaluate neurological status. Keppra had been stopped 12/05. This was discussed with Dr. Alba who recommended an EEG be ordered and will discuss with Dr. Chen, the covering casino cashier manager today. . Family/friend interactions Advanced care planning discussion was voluntarily requested by son and I spoke with patient's son, Jamin, for 20 minutes, who related a conversation he had with Dr. Neville the previous day and stated that he recommended proceeding with tracheostomy and PEG placement and allowing a month of recovery prior to making further decisions. Jamin related his confusion regarding the neurologist opinion which appeared to be in contrast with the opinion of the casino cashier manager. We discussed 3 possible scenarios. First, of proceeding with trach and PEG and if no improvement in a month could go forward with withdrawal , secondly, if she were to show minimal improvement and have a life of dependency after trach and PEG, which would be unacceptable to the patient per previous conversations. He could still proceed with withdrawal of artificial feeding and ventilator if she remained vent dependent and transition to a hospice care center for end-of-life care. Finally he could proceed with withdrawal prior to trach and PEG. He wished to get the EEG results prior to making a decision and requested to wait through the weekend to give him time to determine which of those 3 scenarios he would be most comfortable with. As she has been intubated for 14 days today, that option could be reasonably considered. . (Marii Horowitz) Advance Directives Living Will: Never completed Health Care Surrogate: Never completed Durable Power of Milking Machine Mechanic: Never completed (Marii Horowitz) Advance Directive Specifics Date completed: None completed. . Health Care Surrogate(s): None available. Per [place] statutes, her son Jamin would be the healthcare proxy and is willing to serve. . Documented care wishes: No documented care wishes available. . Significant change in goals: No significant change in goals. . (Marii Horowitz) Objective Vital Signs Date Time Temp Pulse Resp B/P (MAP) Pulse Ox O2 Delivery O2 Flow Rate FiO2 12/13/17 10:40 99 40 12/13/17 10:40 40 12/13/17 08:20 99 40 12/13/17 06:08 95 12/13/17 06:03 92 13 128/65 (86) 96 12/13/17 05:29 94 12 119/68 (85) 93 12/13/17 05:12 94 12/13/17 04:11 98 40 12/13/17 04:03 92 12 113/61 (78) 99 12/13/17 04:00 40 12/13/17 03:03 97.8 80 12 96/54 (68) 99 12/13/17 02:17 81 12/13/17 02:03 80 12 97/52 (67) 97 12/13/17 01:04 99 40 12/13/17 01:03 96 13 115/61 (79) 99 12/13/17 00:03 92 14 122/75 (91) 99 12/13/17 00:00 40 12/13/17 00:00 90 12/12/17 23:03 78 12 107/62 (77) 100 4/26/18 22:48 82 12/12/17 22:28 100 40 12/12/17 22:03 88 12 111/59 (76) 100 12/12/17 21:03 90 12 120/66 (84) 100 12/12/17 20:03 98.8 84 11 104/61 (75) 100 12/12/17 20:00 82 12/12/17 20:00 40 12/12/17 19:39 99 40 12/12/17 19:03 92 12 123/62 (82) 100 12/12/17 19:00 99 Mechanical Ventilator 40 12/12/17 18:44 98 40 12/12/17 18:00 86 12/12/17 18:00 92 16 119/68 (85) 99 12/12/17 17:00 90 16 120/65 (83) 100 12/12/17 16:00 40 12/12/17 16:00 92 12/12/17 16:00 98.4 92 12 117/65 (82) 100 12/12/17 15:00 90 11 106/60 (75) 99 12/12/17 15:00 40 12/12/17 14:00 94 15 119/69 (86) 100 12/12/17 14:00 90 12/12/17 14:00 100 40 Intake & Output 12/13/17 12/13/17 07:00 19:00 Output Total 800 ml Balance -800 ml Output Urine Total 800 ml Physical Exam CONSTITUTIONAL/GENERAL: This is an adequately nourished patient, nonresponsive on mech vent TUBES/LINES/DRAINS: PIV LUE x 2. Méndez catheter . ETT. NGT left nare SKIN: No jaundice, rashes, or lesions. No wounds seen anteriorly. Skin warm/ dry HEAD: Atraumatic. Normocephalic. EYES: Pupils equal and round and reactive. No scleral icterus. No injection or drainage. Fundi not examined. ENT: Nose without bleeding or purulent drainage. No something CARDIOVASCULAR: Regular rate and rhythm without murmur. No JVD. Peripheral pulses symmetric. 1+ edema BUE, 1+ edema bilat feet RESPIRATORY/CHEST: Symmetric, unlabored respirations via ETT, on SBT, frequent apneic episodes. Coarse breath sounds. Breath sounds equal bilaterally. GASTROINTESTINAL: Abdomen soft, round, nondistended. No palpable masses. Bowel sounds normoactive. TF infusing. GENITOURINARY: Without palpable bladder distension. Méndez catheter in place clear, yellow urine. MUSCULOSKELETAL: Extremities without clubbing, cyanosis. 2+ edema BUE. 1+ bilat feet. No mottling or clubbing. LYMPHATICS: No palpable cervical or supraclavicular adenopathy. NEUROLOGICAL: on no sedation. Not responsive to my exam. No eye opening or grimacing to pain stimuli, + resistance to eyelid retraction . No withdrawal to pain in all 4 extremities. PSYCHIATRIC: Not responsive. . (Marii Horowitz) Diagnostic Tests Laboratory Laboratory Tests Test 12/11/17 04:15 12/11/17 18:46 12/12/17 20:00 12/13/17 04:13 White Blood Count 13.0 TH/MM3 (4.0-11.0) 10.1 TH/MM3 (4.0-11.0) Red Blood Count 2.99 MIL/MM3 (4.00-5.30) 2.98 MIL/MM3 (4.00-5.30) Hemoglobin 9.7 GM/DL (11.6-15.3) 9.2 GM/DL (11.6-15.3) Hematocrit 28.9 % (35.0-46.0) 28.7 % (35.0-46.0) Mean Corpuscular Volume 96.7 FL (80.0-100.0) 96.3 FL (80.0-100.0) Mean Corpuscular Hemoglobin 32.3 PG (27.0-34.0) 30.8 PG (27.0-34.0) Mean Corpuscular Hemoglobin Concent 33.5 % (32.0-36.0) 32.0 % (32.0-36.0) Red Cell Distribution Width 14.6 % (11.6-17.2) 14.3 % (11.6-17.2) Platelet Count 468 TH/MM3 (150-450) 506 TH/MM3 (150-450) Mean Platelet Volume 8.6 FL (7.0-11.0) 8.6 FL (7.0-11.0) Neutrophils (%) (Auto) 81.5 % (16.0-70.0) 71.5 % (16.0-70.0) Lymphocytes (%) (Auto) 10.7 % (9.0-44.0) 16.7 % (9.0-44.0) Monocytes (%) (Auto) 5.6 % (0.0-8.0) 9.5 % (0.0-8.0) Eosinophils (%) (Auto) 1.8 % (0.0-4.0) 1.6 % (0.0-4.0) Basophils (%) (Auto) 0.4 % (0.0-2.0) 0.7 % (0.0-2.0) Neutrophils # (Auto) 10.6 TH/MM3 (1.8-7.7) 7.1 TH/MM3 (1.8-7.7) Lymphocytes # (Auto) 1.4 TH/MM3 (1.0-4.8) 1.7 TH/MM3 (1.0-4.8) Monocytes # (Auto) 0.7 TH/MM3 (0-0.9) 1.0 TH/MM3 (0-0.9) Eosinophils # (Auto) 0.2 TH/MM3 (0-0.4) 0.2 TH/MM3 (0-0.4) Basophils # (Auto) 0.1 TH/MM3 (0-0.2) 0.1 TH/MM3 (0-0.2) CBC Comment AUTO DIFF DIFF FINAL Differential Comment AUTO DIFF CONFIRMED Blood Urea Nitrogen 21 MG/DL (7-18) 17 MG/DL (7-18) Creatinine 0.75 MG/DL (0.50-1.00) 0.55 MG/DL (0.50-1.00) Random Glucose 216 MG/DL (74-106) 142 MG/DL (74-106) Total Protein 5.6 GM/DL (6.4-8.2) 5.5 GM/DL (6.4-8.2) 5.7 GM/DL (6.4-8.2) 5.6 GM/DL (6.4-8.2) Albumin 1.7 GM/DL (3.4-5.0) 1.7 GM/DL (3.4-5.0) 1.8 GM/DL (3.4-5.0) 1.8 GM/DL (3.4-5.0) Calcium Level 8.1 MG/DL (8.5-10.1) 8.0 MG/DL (8.5-10.1) Alkaline Phosphatase 558 U/L (45-117) 711 U/L (45-117) 776 U/L (45-117) 753 U/L (45-117) Aspartate Amino Transf (AST/SGOT) 390 U/L (15-37) 468 U/L (15-37) 271 U/L (15-37) 220 U/L (15-37) Alanine Aminotransferase (ALT/SGPT) 194 U/L (10-53) 274 U/L (10-53) 259 U/L (10-53) 238 U/L (10-53) Total Bilirubin 0.2 MG/DL (0.2-1.0) LESS THAN 0.1 MG/DL LESS THAN 0.1 MG/DL 0.3 MG/DL (0.2-1.0) Sodium Level 142 MEQ/L (136-145) 144 MEQ/L (136-145) Potassium Level 4.1 MEQ/L (3.5-5.1) 4.3 MEQ/L (3.5-5.1) Chloride Level 109 MEQ/L (98-107) 110 MEQ/L (98-107) Carbon Dioxide Level 28.7 MEQ/L (21.0-32.0) 27.9 MEQ/L (21.0-32.0) Anion Gap 4 MEQ/L (5-15) 6 MEQ/L (5-15) Estimat Glomerular Filtration Rate 78 ML/MIN (>89) 112 ML/MIN (>89) Direct Bilirubin 0.1 MG/DL (0.0-0.2) 0.1 MG/DL (0.0-0.2) Indirect Bilirubin 0.0 MG/DL (0.0-0.8) 0.0 MG/DL (0.0-0.8) Test 12/13/17 07:55 Blood Gas Puncture Site RT RADIAL Blood Gas Patient Temperature 37.0 Blood Gas HCO3 27 mmol/L (22-26) Blood Gas Base Excess 3.5 mmol/L (-2-2) Blood Gas Oxygen Saturation 97 % (90-100) Arterial Blood pH 7.46 (7.380-7.420) Arterial Blood Partial Pressure CO2 38 mmHg (38-42) Arterial Blood Partial Pressure O2 139 mmHg (61-120) Arterial Blood Oxygen Content 17.5 Vol % (12.0-20.0) Arterial Blood Carboxyhemoglobin 1.1 % (0-4) Arterial Blood Methemoglobin 1.1 % (0-2) Blood Gas Hemoglobin 12.7 G/DL (12.0-16.0) Oxygen Delivery Device VENTILATOR Blood Gas Ventilator Setting 12/450/PEEP 5 Blood Gas Inspired Oxygen 40 % (Marii Horowitz) Result Diagram: 12/13/17 0413 12/13/17 0413 Microbiology Microbiology Date/Time Source Procedure Growth Status 12/08/17 06:13 Blood Peripheral Aerobic Blood Culture - Final NO GROWTH IN 5 DAYS Complete 12/08/17 06:13 Blood Peripheral Anaerobic Blood Culture - Final NO GROWTH IN 5 DAYS Complete 12/02/17 15:29 Cerebral Spinal Fluid Lumbar Puncture Gram Stain - Final Complete 12/02/17 15:29 Cerebral Spinal Fluid Lumbar Puncture CSF Culture - Final NO GROWTH IN 72 HOURS Complete 12/08/17 06:00 Sputum Nasal Tracheal Aspirate Gram Stain - Final Complete 12/08/17 06:00 Sputum Culture - Final Escherichia Coli Complete 12/08/17 06:09 Urine Catheterized Urine Urine Culture - Final Anna Glabrata Complete Imaging Last Impressions Liver Ultrasound 12/12/17 0000 Signed Impressions: Service Date/Time: November 13:20 - CONCLUSION: 1. Marked gallbladder wall thickening with minimal pericholecystic fluid. No stones or sludge. 2. Small bilateral pleural effusions. Dani Titus MD Neck CTA 12/11/17 0000 Signed Impressions: Service Date/Time: Monday, December 11, 2017 23:08 - CONCLUSION: No carotid stenosis. Ac Davis MD Head CTA 12/11/17 0000 Signed Impressions: Service Date/Time: Monday, December 11, 2017 23:08 - CONCLUSION: 1. No large vessel stenosis or aneurysm. Ac Davis MD Brain MRI 12/11/17 0000 Signed Impressions: Service Date/Time: Monday, December 11, 2017 11:12 - CONCLUSION: 1. Faint diffusion restriction predominately along the high right parietal convexity with minimal diffusion restriction on the left. Pattern is somewhat unusual for anoxia with the asymmetry. Possible embolic event. CTA of the cervical and intracranial vessels to be performed for further characterization. 2. Chronic changes with some periventricular small vessel ischemic demyelination. 3. Mild ventricular prominence. In the appropriate clinical setting, findings could represent normal pressure hydrocephalus. 4. Bilateral mastoiditis. Mild chronic sinus disease in the sphenoid bilaterally. Dani Titus MD Chest X-Ray 12/08/17 0000 Signed Impressions: Service Date/Time: Friday, December 08, 2017 08:09 - CONCLUSION: 1. Interval removal of left internal jugular central venous line. 2. Mild improvement in pulmonary opacities. Shaquille Haley MD Gall Bladder Ultrasound 12/03/17 0000 Signed Impressions: Service Date/Time: Sunday, December 03, 2017 07:59 - CONCLUSION: 1. Ascites and bilateral pleural effusions. 2. Mildly distended gallbladder without evidence of wall thickening or cholelithiasis. 3. Otherwise unremarkable exam. Boo Cartwright MD Lumbar Puncture Fluoroscopy 12/02/17 0000 Signed Impressions: Service Date/Time: Saturday, December 02, 2017 15:28 - CONCLUSION: Uncomplicated fluoroscopically guided lumbar puncture. Aly Leigh MD Renal Ultrasound 11/29/17 1656 Signed Impressions: Service Date/Time: Wednesday, November 29, 2017 13:16 - CONCLUSION: 1. Both kidneys are sonographically normal without hydronephrosis or nephrolithiasis. 2. Very abnormal appearance of the gallbladder with mural thickening and minimal pericholecystic fluid Dani Titus MD Head CT 11/28/17 0000 Signed Impressions: Service Date/Time: November 15:46 - CONCLUSION: 1. Ventriculomegaly suggesting central cerebral atrophy versus hydrocephalus. Clinical correlation is recommended. 2. No acute infarct, acute hemorrhage, midline shift or extra-axial fluid collections. Dev Christopher MD Procedures 11/29: Orotracheal intubation 11/29: Right chest tube placement secondary to iatrogenic pneumothorax. 11/29: Bronchoscopy 11/29: Left IJ central line placement 11/30: Bronchoscopy . (Marii Horowitz) Assessment and Plan Disease Oriented Problem List: (1) Hyperkalemia (2) Acute renal failure (3) DKA (diabetic ketoacidoses) (4) Altered mental status (5) Metabolic acidosis (6) Hypotension (7) Seizure cerebral (8) Encephalopathy, metabolic (9) NSTEMI (non-ST elevated myocardial infarction) (10) UTI (urinary tract infection) (11) Type 1 diabetes (12) Leukocytosis (13) Respiratory failure (14) Hypertension Symptom Scale: (1) Encephalopathy 0-10 Scale: Unable to quantify (2) Dyspnea 0-10 Scale: Unable to quantify Pertinent Non-Medical Issues Psychosocial:Originally from [facility], moved here to [place] about 3 years ago to be closer to her sister and mother. Her son Jamin lives in [place]. 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 Supported locally by her sister , and significant other León jose. Patient and her sister Evelyn take turns helping to care for their mother who is in her 90s. Spiritual:Restorationism adonay, attended [employer]. Would appreciate construction project assistant visits per significant other. Legal:Pt unable to participate due to encephalopathy, not clear she will regain ability to participate. Her sister has been involved in her care and decisions. She also is reported to have one son who lives in [place]. Not known at this time if she has advanced directives or health care surrogate designation. If she does not have advanced directives, then her son or any additional children would be appropriate legal proxy per [place] statutes ( if they wish to serve as such). Ethical issues impacting care: No ethical issues identified. Important Contacts sister Evelyn Obrien at [phone] Son Jamin (in [place]) Significant other León De León [phone]/ [phone] . Prognosis This patient was initially admitted for altered mental status, findings of DKA. She also suffered acute renal failure, respiratory failure. She were now remains profoundly encephalopathic on mechanical vent at this time unable to medically wean. 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 It is likely she will require tracheostomy and PEG tube to continue aggressive treatment course. . Code Status: Full Code Plan * Legal decision maker:Pt unable to participate due to encephalopathy, not clear she will regain ability to participate. Her son, Jamin, has traveled from [place] to assist in decision making and per [place] Statutes, in the absence of Advanced Directives, he would be the legal proxy decision maker. * Goals: TBD, at this time the family is considering information received and family meeting and are awaiting input from the neurologist and imaging study to make further decisions. * CODE STATUS: Full code by default * SYMPTOMS: --Encephalopathy-admitted with DKA, altered mental status. Initial MRI, CSF etc. negative. Repeat MRI findings area of diffusion restriction on right parietal convexity with less diffusion restriction on the left. Consistent with 12/11 EEG showing severe encephalopathy with more prominent slowing over the right hemisphere. CTA of neck and brain showed no acute findings. Not withdrawing to noxious stimuli or following commands. --Dyspnea-emergently intubated for acute respiratory failure, inability to protect airway. Remains on mechanical vent. Now having apnea on CPAP trials which she had previously been tolerating for 4-6 hours. Family aware of upcoming trach/PEG decision and are contemplating their goal of care options. Neurology opinion was to allow more time and son is struggling with the decisions. He has requested to wait through the weekend to allow him to process. --Seizures-she is currently on Cerebyx. Phenobarbital has been held since yesterday to determine effect on level of consciousness. She remains on seizure precautions. Last EEG's on 12/07 and 12/11 showed no epileptiform activity. She is seen to be biting the ET tube and movements suspicious for recurrent seizures. Pending repeat EEG. * Palliative care will continue to follow during hospital course as condition evolves, to assist patient/decision-maker with understanding of medical conditions, weighing benefits/burdens of treatment options, for clarification of goals of treatment. Additionally will assist with any symptoms of palliative concern . (Marii Horowitz) Attestation To help prompt me to consider important information that might be impacting today's encounter and assessment, information from prior notes written by myself or my colleagues may have been "brought forward" into today's note. My signature on this note, however, is an attestation that I personally performed the exam, history, and/or decision-making noted today, and, unless otherwise indicated, the interactions with patient, family, and staff as well as the review of records all occurred today. I also attest that the listed assessment and stated plan reflect my best clinical judgment today based on the combination of historical information, prior notes, and today's exam/ interactions. When time spent is documented, it refers only to time spent today by the signer, or if indicated, combined time spent today by collaborating physician/nurse practitioner. . (Marii Horowitz) Collaborating MD Comments Chart reviewed. Case discussed with palliative care nurse practitioner. Above LISBET note reviewed and I concur. . (Oren Gan MD) Marii Horowitz Dec 13, 2017 14:03 Oren Gan MD Jan 25, 2018 12:17
[2017-12-13] MEDS: cefTRIAXone INJ 2,000 MG in SODIUM CHLORIDE 0.9% INJ 100 ML IV SCH (17:00)
--- NOTE | 2017-12-13 18:53 | MB ---
cc: Verenice Love MD, Ammar MD DATE: 12/13/2017 REFERRING PHYSICIAN: Dr. Childs REASON FOR REFERRAL: Elevated liver function tests. HISTORY OF PRESENT ILLNESS Thank you for the consultation. An unfortunate 61-year-old lady who has been in the hospital for at least 2 weeks. The patient came with altered mental status and DKA, hyperkalemia and acute renal failure. The patient is a 61-year-old lady who is known to have diabetes, hypertension and a history of breast cancer came who with DKA. Her blood sugar initially was 808. A CT scan initially showed ventriculomegaly, frequent MRIs and CT scan with questionable embolic event. The patient had normal liver function tests on admission, but then a few days ago the liver function tests suddenly went up. The patient has been intubated and sedated. We were asked to see her because of the elevation of the liver function tests. REVIEW OF SYSTEMS: Unobtainable because the patient is intubated and sedated. ALLERGIES: FROM THE CHART NO KNOWN DRUG ALLERGIES. PAST MEDICAL HISTORY: Significant for osteoporosis, insulin-dependent diabetes, breast cancer,YAG laser posterior capsulotomy. MEDICATIONS: Reviewed in the chart. FAMILY HISTORY: Coronary artery disease, glaucoma, rheumatoid arthritis, unknown type of cancer. SOCIAL HISTORY: Apparently positive for tobacco, no drugs. Positive for daily alcohol. PHYSICAL EXAMINATION: GENERAL: At this time, the patient seems to be well nourished. The patient is intubated, sedated, unable to respond. HEENT: Atraumatic head. Pupil equal. The patient is intubated. Clear mucosa of the mouth. NECK: Supple with trachea in the midline. HEART: Regular rate and rhythm at this time. ABDOMEN: Soft, nondistended, positive bowel sounds. The patient has NG tube. No hepatosplenomegaly. MUSCULOSKELETAL: +1 edema. NEUROLOGIC: Neurologically unable to evaluate that because of sedation. She has withdrawal with all extremities. PSYCHIATRIC: Unable to evaluate. LABORATORY DATA: INR 1.1. White count 10.1, two days ago was 13.0, hemoglobin stable at 9.2 throughout the admission, platelets 506. Total bilirubin was always low, today is 0.3. ALT on admission until the 12/08 was normal, then started going up on 12/11 and the highest was 274 and now is trending down to 238, AST again was normal on admission. The highest was on 12/11 at 468 and today is 220. Albumin 1.8. BUN and creatinine are normal. Clostridium difficile was negative. The patient had a spinal tap which was negative. IMAGING STUDIES: Ultrasound of the liver was unremarkable, except some thickening of the gallbladder wall. ASSESSMENT AND PLAN: A 61-year-old lady with multiple medical problems, mental status changes who started having increase in liver function tests 3-4 days ago. Questionable etiology. Try to see if there are any new medication that was started during that period of time and the only thing was ceftriaxone 12/11 but she had elevation before that. It could be that she has cholecystitis with the thickening of the wall and she is getting treatment for that. Her liver enzymes are improving. The ultrasound does not show any obstruction. She does not have total bili elevation so it could be infectious process or medication related. I do not think this is a shock liver because reviewing her vital signs I do not see a significant drop of her blood pressure. Her blood pressure on 12/11 was in the 90s/50s. It never went down below that, so I doubt there is shock liver. If this is infection and it is responding to ceftriaxone from cholecystitis, we will continue to see improvement of the liver function tests. I would continue with that. We will check liver function test tomorrow and we will see how the patient is doing. MD STEPHANIE Soler/ , 06:20 PM , 06:52 PM
[2017-12-14] VITALS (39 sets, daily range): BP systolic 103–131; BP diastolic 58–73; PULSE 77–96; RESP 11–23; TEMP 98.7–99.6; O2SAT 97–99
[2017-12-14] MEDS: HEPARIN SODIUM - SQ 10,000 UNITS/ML VIAL SQ SCH ×3 (02:20→18:09)
[2017-12-14] MEDS: FREE WATER G-TUBE SCH ×4 (03:00→21:00)
[2017-12-14] MEDS: CHLORHEXIDINE GLUCONATE 2 % 1 PACK (2 CLOTHS) TOP SCH (04:00)
[2017-12-14] MEDS: INSULIN ASPART SUPPLEMENTAL SCALE SQ SCH ×5 (04:28→21:01)
--- NOTE | 2017-12-14 06:22 | RADRPT ---
EXAM DATE/TIME: 12/14/2017 06:04 [facility] COMPARISON: CHEST SINGLE AP, December 08, 2017, 8:09. INDICATIONS : Shortness of breath. MEDICAL HISTORY : Diabetes mellitus type 1. Anxiety SURGICAL HISTORY : Bilateral cataract surgery. Dental implants. Bunionectomy ENCOUNTER: Subsequent ACUITY: 2 weeks PAIN SCORE: Non-responsive. LOCATION: Bilateral chest FINDINGS: There is cardiomegaly, dense left lower lobe consolidation endotracheal tube just above the kera. N G tube side-port at the expected location of the esophagogastric junction. There is increased density overlying the right lung base related to skin fold and overlying soft tissue however developing righ t basilar consolidation is not excluded. CONCLUSION: Probable skinfold with overlying soft tissue density at the right base. Left lower lobe consolidation again seen. Neville Daniel MD on December 14, 2017 at 6:19 Board Certified Radiologist. This report was verified electronically.
[2017-12-14 06:36] LABS: AUTOMATED NEUTROPHIL # 8.3 TH/MM3 (1.8-7.7); BASOPHIL # 0.1 TH/MM3 (0-0.2); BASOPHIL % 0.7 % (0.0-2.0); EOSINOPHIL # 0.1 TH/MM3 (0-0.4); EOSINOPHIL % 1.3 % (0.0-4.0); HEMATOCRIT 27.9 % (35.0-46.0); HEMOGLOBIN 9.1 GM/DL (11.6-15.3); LYMPH % 9.2 % (9.0-44.0); MEAN CELL VOLUME 96.5 FL (80.0-100.0); MEAN CORPUSCULAR HEMOGLOBIN 31.4 PG (27.0-34.0); MEAN CORPUSCULAR HGB CONC 32.6 % (32.0-36.0); MEAN PLATELET VOLUME 8.8 FL (7.0-11.0); MONO % 9.4 % (0.0-8.0); NEUT % 79.4 % (16.0-70.0); PLATELET COUNT 539 TH/MM3 (150-450); RED BLOOD COUNT 2.89 MIL/MM3 (4.00-5.30); RED CELL DISTRIBUTION WIDTH 14.6 % (11.6-17.2); WHITE BLOOD COUNT 10.5 TH/MM3 (4.0-11.0)
[2017-12-14 06:58] LABS: CHLORIDE 104 MEQ/L (98-107); SODIUM (NA) 136 MEQ/L (136-145)
[2017-12-14 07:02] LABS: ALBUMIN 1.8 GM/DL (3.4-5.0); BICARBONATE 26.8 MEQ/L (21.0-32.0); BLOOD UREA NITROGEN 17 MG/DL (7-18); GLUCOSE,RANDOM 222 MG/DL (74-106); MAGNESIUM 2.3 MG/DL (1.5-2.5)
[2017-12-14 07:05] LABS: ALT (GPT) 211 U/L (10-53); AST (GOT) 189 U/L (15-37); CREATININE 0.63 MG/DL (0.50-1.00); GLOMERULAR FILTRATION RATE 95 ML/MIN (>89); PHOSPHORUS 2.7 MG/DL (2.5-4.9)
[2017-12-14 07:06] LABS: TOTAL BILIRUBIN ADULT 0.1 MG/DL (0.2-1.0); TOTAL PROTEIN 5.9 GM/DL (6.4-8.2)
[2017-12-14 07:08] LABS: ALKALINE PHOSPHATASE 931 U/L (45-117)
--- NOTE | 2017-12-14 08:11 | HHI.CCPN ---
Subjective Remarks/Hospital Course This is a 51-year-old female. Date of admission 11/28/2017. Past medical history includes diabetes mellitus type 1 uncontrolled insulin- dependent with retinopathy on home insulin pump, hypertension, allergic rhinitis and chronic benzodiazepine use. She also has history of breast cancer on raloxifene she originally presented to [facility] ED During the workup, patient was noted to have a blood sugar of 808. Elevated acetone. Sodium 135. Potassium 6.0. Ferritin 2.1. Leukocytosis 25,000. Macrocytic anemia. UA negative for infectious etiology. She was bolused with 3 L of 0.9% NaCl IV fluid bolus. She is received 3 ampules of sodium bicarbonate and 1 g calcium gluconate. Chest x-ray post procedure revealed the CT scan of the head is read by the radiologist as ventriculomegaly but otherwise no acute findings. 11/29: Patient had nonrebreather off all night. PTX now 8 mm. Yells "Help me " "I don't know" Gap has closed, will transition back to SQ insulin if able to pass swallow. Replacing lytes. 11/30: Patient opens eyes to voice. Leftward gaze. Frequent blinking. Withdraws to stimulation bilateral lower extremities. T-max 99.5. Remains on norepinephrine and phenylephrine drips. MRI brain revealed ventriculomegaly. No acute signs of CVA. Echocardiogram EF 40%. 12/01: Afebrile. Patient remains off sedation approximately 24 hours nonresponsive. EEG in process. BAL revealed gram-negative rods the patient continues on Zosyn. The patient remains on vasopressors norepinephrine, vasopressin, and phenylephrine. Versed infusion restarted secondary to seizure activity noted on repeat EEG this a.m.. 12/02: Afebrile. The patient is scheduled for lumbar puncture this a.m., INR 1.0 patient has been off subcu heparin approximately 3 days. The patient continues on Versed and fentanyl infusions to maintain ventilator synchrony and avoidance of subclinical seizures which were noted on the EEG yesterday. The patient continues on multiple vasopressors to include norepinephrine and phenylephrine and vasopressin. Vasopressin currently being weaned off. The patient continues to have persistent leukocytosis though it is slightly downtrending plan for ID consult today appreciate recommendations. Bronchial washings resulted E. coli, currently patient continues on Zosyn. Patient was noted to have a positive fluid balance yesterday the patient received 20 mg of Lasix with adequate diuresis the patient noted to have a sodium level slightly decreased at 135 IV fluids mixed in 0.9 normal saline. 12/03: No acute events overnight lumbar puncture performed yesterday results pending. Dilantin level therapeutic. Phenobarbital level pending. Patient off vasopressin 24 hours. Phenylephrine currently being weaned off. Patient noted to be anemic 1 unit packed cells will be transfused today no pneumothorax chest tube now placed to waterseal today. 12/04: T-max 99.4. Repeat EEG performed today. Patient now withdrawing to pain 4 extremities, and open eyes to painful stimulus. Patient noted to move bilateral lower extremities 1 this shift. Patient tolerating tube feeds, overbreathing vent will begin CPAP trials in the a.m. if clinically stable. Phenylephrine completely discontinued overnight. Norepinephrine has been decreased to 3 mics/min. hemoglobin stable. 12/05: Afebrile. Patient was weaned off of norepinephrine last p.m.. The patient has been off sedation for greater than 48 hours, no change in neurological status opens eyes to deep stimulation, moves extremities 4 withdrawing to painful stimuli. CPAP trials initiated this a.m. the patient tolerated CPAP for approximately 6.5 hours. Chest x-ray remains unchanged no pneumo thorax, plan for removal of chest tube this evening. 12/06 No events overnight. On no sedation. Afebrile. unresponsive s/p removal chest tube yesterday.. 12/07 versed drip off since 12/04.. Eyes open to noxious stimuli, spontaneously moved R hand, withdraws x4. Temp max 99.3. WBC 11.2 today. Remains off pressors. On CPAP 05/23 and tolerating Subjective: 12/08. Temp max 100.4 overnight. Blood, urine, sputum cultures were sent. White blood cell count 13 this morning. Blood pressure was down to 84/46 with map of 56 this morning. Diuresed nearly 4 L yesterday with Lasix 40 IV q12, creatinine increased today. Tolerating tube feeds. Liquid stool x3 overnight. Apneic during multiple attempts at CPAP this morning. No neuro change. EEG bilateral slowing. Bihemispheric abnormalities. No epileptiform features 12/09: Remains encephalopathic, orally intubated on mechanical ventilation. Tolerating tube feeds. Not on any sedation. 12/10: Remains encephalopathic, orally intubated on mechanical ventilation. Tolerating tube feeds. Minimal eye opening with painful stimuli however extremely poor gag response. 12/11: Remains encephalopathic, orally intubated on mechanical ventilation. Tolerating tube feeds. Awaiting MRI/ EEG. 12/12: Remains encephalopathic, orally intubated on mechanical ventilation. No significant improvement in neurologic status noted. Tolerating tube feeds. EEG very abnormal more on the right. MRI brain done yesterday with high parietal lobe ischemic changes however CTA with no major vessel stenosis or aneurysm. 12/13 No events overnight. Remains intubated unresponsive. Afebrile. On no drips. 12/14: Remains encephalopathic, orally intubated on mechanical ventilation. Objective Vital Signs Date Time Temp Pulse Resp B/P (MAP) Pulse Ox O2 Delivery O2 Flow Rate FiO2 12/14/17 06:03 90 14 119/64 (82) 97 12/14/17 04:23 40 12/14/17 04:03 99.6 12/13/17 19:00 Mechanical Ventilator Intake and Output 12/14/17 12/14/17 12/15/17 08:00 16:00 00:00 Intake Total 978 ml Output Total 500 ml Balance 478 ml Result Diagram: 12/14/17 0629 12/14/17 0629 Imaging Last Impressions Liver Ultrasound 12/12/17 0000 Signed Impressions: Service Date/Time: November 13:20 - CONCLUSION: 1. Marked gallbladder wall thickening with minimal pericholecystic fluid. No stones or sludge. 2. Small bilateral pleural effusions. Dani Titus MD Neck CTA 12/11/17 0000 Signed Impressions: Service Date/Time: Monday, December 11, 2017 23:08 - CONCLUSION: No carotid stenosis. Ac Davis MD Head CTA 12/11/17 0000 Signed Impressions: Service Date/Time: Monday, December 11, 2017 23:08 - CONCLUSION: 1. No large vessel stenosis or aneurysm. Ac Davis MD Brain MRI 12/11/17 0000 Signed Impressions: Service Date/Time: Monday, December 11, 2017 11:12 - CONCLUSION: 1. Faint diffusion restriction predominately along the high right parietal convexity with minimal diffusion restriction on the left. Pattern is somewhat unusual for anoxia with the asymmetry. Possible embolic event. CTA of the cervical and intracranial vessels to be performed for further characterization. 2. Chronic changes with some periventricular small vessel ischemic demyelination. 3. Mild ventricular prominence. In the appropriate clinical setting, findings could represent normal pressure hydrocephalus. 4. Bilateral mastoiditis. Mild chronic sinus disease in the sphenoid bilaterally. Dani Titus MD Chest X-Ray 12/08/17 0000 Signed Impressions: Service Date/Time: Friday, December 08, 2017 08:09 - CONCLUSION: 1. Interval removal of left internal jugular central venous line. 2. Mild improvement in pulmonary opacities. Shaquille Haely MD Gall Bladder Ultrasound 12/03/17 0000 Signed Impressions: Service Date/Time: Sunday, December 03, 2017 07:59 - CONCLUSION: 1. Ascites and bilateral pleural effusions. 2. Mildly distended gallbladder without evidence of wall thickening or cholelithiasis. 3. Otherwise unremarkable exam. Boo Cartwright MD Lumbar Puncture Fluoroscopy 12/02/17 0000 Signed Impressions: Service Date/Time: Saturday, December 02, 2017 15:28 - CONCLUSION: Uncomplicated fluoroscopically guided lumbar puncture. Aly Leigh MD Renal Ultrasound 11/29/17 1656 Signed Impressions: Service Date/Time: Wednesday, November 29, 2017 13:16 - CONCLUSION: 1. Both kidneys are sonographically normal without hydronephrosis or nephrolithiasis. 2. Very abnormal appearance of the gallbladder with mural thickening and minimal pericholecystic fluid Dani Titus MD Head CT 11/28/17 0000 Signed Impressions: Service Date/Time: November 15:46 - CONCLUSION: 1. Ventriculomegaly suggesting central cerebral atrophy versus hydrocephalus. Clinical correlation is recommended. 2. No acute infarct, acute hemorrhage, midline shift or extra-axial fluid collections. Dev Christopher MD Procedures 12/02-planned lumbar puncture Objective Remarks GENERAL: 61-year-old female critically ill currently orotracheally intubated SKIN: Warm and dry. No rash HEAD: Atraumatic. Normocephalic. EYES: Gaze conjugate. Pupils equal and round about 4 mm and reactive to 2 mm bilaterally. No scleral icterus. No injection. Scleral edema improved. ENT: No nasal bleeding or discharge. Mucous membranes pink and moist NECK: Trachea midline. No JVD. CARDIOVASCULAR: RRR. . No murmur RESPIRATORY: Orally intubated on mechanical ventilation, good air entry bilaterally, no wheezing or crackles GASTROINTESTINAL: NGT L nare with tube feeds running. Abdomen soft, non-tender, nondistended. Bowel sounds present. MUSCULOSKELETAL: Edema improved, ~ 1+ of hands and ble. NEUROLOGICAL: Pupils reactive as per above + cough + gag. Eyes open to deep central noxious stimuli. Withdraws with all extremities. Date of Insertion: Nov 28, 2017 Line: Central Venous Catheter Side: Left Location: Internal, Jugular A/P Assessment and Plan Neuro/Psych: Acute encephalopathy secondary to diabetic ketoacidosis Anxiety disorder NOS Benzodiazepine use Off sedation since 12/04. Neurology Dr. Neville Acetaminophen 650 mg by tube every 6 hours as needed fever CT brain 11/28 revealed Ventriculomegaly suggesting central cerebral atrophy versus hydrocephalus. Clinical correlation is recommended. No acute infarct, acute hemorrhage, midline shift or extra-axial fluid collections. She is on amitriptyline 10 mg daily at home. This has been held UDS negative MRI brain 11/29 revealed mild to moderate ventriculomegaly. EEG - 12/07 bihemispheric slowing. No epileptiform features. EEG 11/28- bihemispheric slowing with some left frontocentral sharp waves and phase reversal suggesting an epileptiform abnormality and possible structural lesion in this region. No ictal pattern present. 11/30 levetiracetam 500 mg IV every 12 hours after 1 g bolus, Keppra discontinued 12/05 per neurology Neurology -Dr. Neville, on Phenobarb 65mg Q8 (level was 15 on 12/06), Cerebyx 200mg/PE Q12. Phenytoin level 9.7, Albumin corrected 22. Discussed with Dr. Neville -stopping phenobarbital on 12/10. 12/02 Ophthalmology -no eye infection Lacri-Lube applied for scleral edema 12/02-lumbar puncture-negative. CSF HSV negative 12/03-cortisol level 17 ammonia level 22 12/11 EEG consistent with a severe encephalopathy. There is more prominent slowing over the right hemisphere. MRI brain done on 12/11 with ischemic changes high left parietal lobe however CTA brain with no major vessel stenosis or aneurysm. . CV: History of hypertension Shock, resolved Elevated troponin Acute systolic heart failure ejection fraction 40% NSTEMI cardiomyopathy Monitor HR and BP keep MAP>65mmHg on atorvastatin 10 mg by tube daily, will hold for elevated LFT's Continue aspirin 81 mg by tube daily 2D echocardiogram revealed EF around 40%. LV increased size. Septal hypokinesis. 12/03- Cardiology has signed off Resp: Acute hypoxemic respiratory failure Hemoptysis-resolved Tobacco abuse/ongoing Iatrogenic PTX status post chest tube placement ACV 12 /450/40, Daily SBT. mental status prevents extubation at this time. Patient will need trach if family wants aggressive care Intubated 11/29 . Ventilator bundle Albuterol/ipratropium aerosols every 6 hours with albuterol aerosols every 2 hours as needed dyspnea 12/03 Right chest tube in placed to waterseal 11/29 Status post chest tube placement see documentation, removed 12/05. Status post bronchoscopy 11/29. GI: Moderate protein energy malnutrition Glucerna 1.5, change goal rate to 40 mL/h per nutrition recommendations. famotidine for GI prophylaxis Docusate sodium/senna 1 tablet twice daily for bowel regimen 12/03 gallbladder ultrasound -gallbladder mildly distended without evidence of wall thickening or cholelithiasis. There is ascites and pleural effusions. GI eval noted. Continue multivitamin/thiamine. thiamine via og FEN/RENAL: BRIELLE- resolved Hypernatremia Monitor renal function, I/O's, electrolytes replacement per protocol. Free water 250ml Qq6 hours. Creatinine increased, edema down, hold lasix. Renal ultrasound revealed no medical renal disease. Endo: Insulin-dependent diabetes mellitus type 1 uncontrolled Diabetic ketoacidosis - resolved Originally, patient received 3 L normal saline in the ED along with 3 refills and bicarbonate, 1 ampule of calcium gluconate. Beta hydroxybutyrate cleared 11/29 Insulin pump was disconnected 11/28. 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 She has no history of DKA in the past to her knowledge TSH 0.38 Continue SSI Novulog medium protocol with accucheck every 4 hours maintain euglycemia Levemir 7 q12 Heme: Leukocytosis- Resolved Macrocytic anemia Monitor CBC daily. Follow trends 12/03 transfused 1 unit of packed red blood cells ID: Community-acquired versus aspiration BC x2, UA (-) inf A/B negative 11/29 S/P bronchoscopy with sample sent from left lower lobe 11/29 Sputum (BAL)-E.coli, pansensitive ID is following, Dr. Childs On Rocephin/ oral fluconazole Vancomycin has been discontinued 12/06 per ID 12/02-lumbar puncture-negative Access PIV in place Left IJ CVL placed 11/29-12/07. Prophylaxis -GI -famotidine for stress ulcer prophylaxis -DVT -SCD/continue heparin SQ Dr. Munoz called patient's sister, Evelyn Gramajo, to update 12/08. No answer. RN states she hasn't visited in several days. Consulted palliative care to assist with deciding goals of therapy as patient appears to have significant encephalopathy Discussed with patient's family at bedside in length on 12/10 including patient' s son who arrived from [place] as well as sister. Explained encephalopathy and possible contributing factors. Discussed possible need for tracheostomy and PEG tube placement. Family voiced understanding and were agreeable with plan of care. Discussed with Dr. Neville on 12/10 who agrees with obtaining EEG and repeating MRI brain. Dr. Neville discussing neurologic prognosis with patient's son following review of those results. Family in discussions with palliative care regarding decision for trach/ PEG vs de-escalation of therapy. Level 3 Reji Rosenberg MD Dec 14, 2017 08:11
[2017-12-14] MEDS: SODIUM CHLORIDE 0.9% FLUSH 10 ML FLUSH IV FLUSH SCH ×3 (09:00→21:03)
[2017-12-14] MEDS: CHLORHEXIDINE 0.12% (ORAL KIT) 15 ML CUP MT SCH ×2 (09:07→20:00)
[2017-12-14] MEDS: THIAMINE HCL 100 MG TAB OG-TUBE SCH (09:08)
[2017-12-14] MEDS: INSULIN DETEMIR 100 UNITS/ML VIAL SQ SCH ×2 (09:08→21:00)
[2017-12-14] MEDS: MULTIVITAMIN TAB PO SCH (09:09)
[2017-12-14] MEDS: ARTIFICIAL TEARS OPTH OINT 3.5 APPLIC/3.5 GM TUBO EACH EYE SCH ×4 (09:09→21:00)
[2017-12-14] MEDS: FAMOTIDINE 20 MG TAB NG SCH ×2 (09:09→21:00)
[2017-12-14] MEDS: ASPIRIN 81 MG CHEW TAB CHEW SCH (09:09)
[2017-12-14] MEDS: FOSPHENYTOIN SODIUM 100 MG PE/2 ML VIAL IV SCH ×2 (09:10→21:02)
[2017-12-14] MEDS: FLUCONAZOLE 200 MG TAB PO SCH (09:27)
[2017-12-14] MEDS: cefTRIAXone INJ 2,000 MG in SODIUM CHLORIDE 0.9% INJ 100 ML IV SCH (18:08)
--- NOTE | 2017-12-14 20:03 | HHI.GIFU ---
Subjective Remarks Leg in bed, still not responsive, intubated and sedated Objective Vitals I&O Vital Signs Date Time Temp Pulse Resp B/P (MAP) Pulse Ox O2 Delivery O2 Flow Rate FiO2 12/14/17 19:03 94 12/14/17 19:03 94 16 129/71 (90) 98 12/14/17 18:03 78 12/14/17 18:03 78 12 113/58 (76) 99 12/14/17 17:03 90 12 116/62 (80) 98 12/14/17 16:42 97 40 12/14/17 16:03 98.7 90 13 111/64 (80) 97 12/14/17 16:03 90 12/14/17 16:00 40 12/14/17 15:03 82 12 111/60 (77) 98 12/14/17 14:03 84 13 113/65 (81) 98 12/14/17 14:03 84 12/14/17 13:56 40 12/14/17 13:40 40 12/14/17 13:40 98 40 12/14/17 13:03 82 23 111/64 (80) 98 12/14/17 12:03 88 12/14/17 12:03 98.7 88 20 110/62 (78) 98 12/14/17 12:00 40 12/14/17 11:03 88 14 114/64 (81) 98 12/14/17 10:48 98 40 12/14/17 10:03 88 12/14/17 10:00 80 17 113/64 (80) 97 12/14/17 09:03 94 20 131/70 (90) 97 12/14/17 08:03 98.7 90 21 126/63 (84) 97 12/14/17 08:03 90 12/14/17 08:00 40 12/14/17 07:40 98 40 12/14/17 07:30 40 12/14/17 07:03 90 14 127/69 (88) 98 12/14/17 07:00 98 Mechanical Ventilator 40 12/14/17 06:03 90 14 119/64 (82) 97 12/14/17 06:00 88 12/14/17 05:03 96 13 129/71 (90) 99 12/14/17 04:23 99 40 12/14/17 04:03 99.6 94 12 127/70 (89) 99 12/14/17 04:00 40 12/14/17 04:00 94 12/14/17 03:03 96 14 117/73 (88) 97 12/14/17 02:03 92 13 115/62 (79) 98 12/14/17 02:00 90 12/14/17 01:37 98 40 12/14/17 01:03 94 15 119/67 (84) 97 12/14/17 00:03 99.3 92 12 118/62 (80) 98 12/14/17 00:00 94 12/14/17 00:00 40 12/13/17 23:03 94 14 118/64 (82) 98 12/13/17 22:07 98 40 12/13/17 22:03 92 12 124/65 (84) 97 12/13/17 22:00 94 12/13/17 21:03 92 12 124/72 (89) 100 12/13/17 20:08 100 40 12/13/17 20:03 99.4 92 12 121/63 (82) 100 I/O 12/13/17 12/13/17 12/13/17 12/14/17 12/14/17 12/14/17 07:00 15:00 23:00 07:00 15:00 23:00 Intake Total 1057 ml 978 ml 1047 ml Output Total 800 ml 400 ml 500 ml 560 ml Balance -800 ml 657 ml 478 ml 487 ml IV Total 100 ml Tube Feeding 617 ml 478 ml 447 ml Other 440 ml 500 ml 500 ml Output Urine Total 800 ml 400 ml 500 ml 560 ml # Bowel Movements 0 1 0 Laboratory Laboratory Tests Test 12/14/17 06:29 White Blood Count 10.5 Red Blood Count 2.89 Hemoglobin 9.1 Hematocrit 27.9 Mean Corpuscular Volume 96.5 Mean Corpuscular Hemoglobin 31.4 Mean Corpuscular Hemoglobin Concent 32.6 Red Cell Distribution Width 14.6 Platelet Count 539 Mean Platelet Volume 8.8 Neutrophils (%) (Auto) 79.4 Lymphocytes (%) (Auto) 9.2 Monocytes (%) (Auto) 9.4 Eosinophils (%) (Auto) 1.3 Basophils (%) (Auto) 0.7 Neutrophils # (Auto) 8.3 Lymphocytes # (Auto) 1.0 Monocytes # (Auto) 1.0 Eosinophils # (Auto) 0.1 Basophils # (Auto) 0.1 CBC Comment DIFF FINAL Differential Comment Blood Urea Nitrogen 17 Creatinine 0.63 Random Glucose 222 Total Protein 5.9 Albumin 1.8 Calcium Level 8.0 Phosphorus Level 2.7 Magnesium Level 2.3 Alkaline Phosphatase 931 Aspartate Amino Transf (AST/SGOT) 189 Alanine Aminotransferase (ALT/SGPT) 211 Total Bilirubin 0.1 Sodium Level 136 Potassium Level 4.3 Chloride Level 104 Carbon Dioxide Level 26.8 Anion Gap 5 Estimat Glomerular Filtration Rate 95 Date/Time Source Procedure Growth Status 12/08/17 06:13 Blood Peripheral Aerobic Blood Culture - Final NO GROWTH IN 5 DAYS Complete 12/08/17 06:13 Blood Peripheral Anaerobic Blood Culture - Final NO GROWTH IN 5 DAYS Complete 12/02/17 15:29 Cerebral Spinal Fluid Lumbar Puncture Gram Stain - Final Complete 12/02/17 15:29 Cerebral Spinal Fluid Lumbar Puncture CSF Culture - Final NO GROWTH IN 72 HOURS Complete 12/08/17 06:00 Sputum Nasal Tracheal Aspirate Gram Stain - Final Complete 12/08/17 06:00 Sputum Culture - Final Escherichia Coli Complete 12/08/17 06:09 Urine Catheterized Urine Urine Culture - Final Anna Glabrata Complete Physical Exam HEENT: Pupils round; normocephalic; atraumatic; no jaundice. Throat is clear. Patient is intubated NECK: Neck is supple, no JVD, no lymphadenopathy. CHEST few crackles bilateral CARDIAC: Regular rate and rhythm with no murmur gallop or rubs. ABDOMEN: Soft, nondistended, nontender; no hepatosplenomegaly; bowel sounds are present in all four quadrants. EXTREMITIES: No clubbing, cyanosis, trace edema. SKIN: Normal; no rash; no jaundice. 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 Assessment and Plan Plan Elevated liver function tests, improving slowly, most likely cholecystitis antibiotic, or it could be medication related, Overall guarded prognosis Continue monitoring LFTs Verenice Love MD Dec 14, 2017 20:03
[2017-12-15] VITALS (35 sets, daily range): BP systolic 104–124; BP diastolic 59–79; PULSE 74–96; RESP 12–19; TEMP 97.8–99; O2SAT 95–100
[2017-12-15] MEDS: INSULIN ASPART SUPPLEMENTAL SCALE SQ SCH ×6 (00:21→20:00)
[2017-12-15] MEDS: FREE WATER G-TUBE SCH ×4 (03:00→20:40)
[2017-12-15] MEDS: HEPARIN SODIUM - SQ 10,000 UNITS/ML VIAL SQ SCH ×3 (03:32→17:19)
[2017-12-15] MEDS: CHLORHEXIDINE GLUCONATE 2 % 1 PACK (2 CLOTHS) TOP SCH (04:00)
[2017-12-15 06:07] LABS: AUTOMATED NEUTROPHIL # 6.7 TH/MM3 (1.8-7.7); BASOPHIL % 0.5 % (0.0-2.0); EOSINOPHIL # 0.2 TH/MM3 (0-0.4); EOSINOPHIL % 1.9 % (0.0-4.0); HEMATOCRIT 28.6 % (35.0-46.0); HEMOGLOBIN 9.2 GM/DL (11.6-15.3); LYMPH % 10.9 % (9.0-44.0); MEAN CELL VOLUME 97.1 FL (80.0-100.0); MEAN CORPUSCULAR HEMOGLOBIN 31.2 PG (27.0-34.0); MEAN CORPUSCULAR HGB CONC 32.2 % (32.0-36.0); MEAN PLATELET VOLUME 9.2 FL (7.0-11.0); MONO % 10.9 % (0.0-8.0); NEUT % 75.8 % (16.0-70.0); PLATELET COUNT 555 TH/MM3 (150-450); RED BLOOD COUNT 2.95 MIL/MM3 (4.00-5.30); WHITE BLOOD COUNT 8.9 TH/MM3 (4.0-11.0)
[2017-12-15 06:14] LABS: CHLORIDE 104 MEQ/L (98-107); SODIUM (NA) 137 MEQ/L (136-145)
[2017-12-15 06:21] LABS: ALBUMIN 1.9 GM/DL (3.4-5.0); BICARBONATE 28.4 MEQ/L (21.0-32.0); BLOOD UREA NITROGEN 15 MG/DL (7-18); CALCIUM 8.1 MG/DL (8.5-10.1); GLUCOSE,RANDOM 155 MG/DL (74-106)
[2017-12-15 06:24] LABS: ALT (GPT) 240 U/L (10-53); AST (GOT) 269 U/L (15-37); CREATININE 0.46 MG/DL (0.50-1.00); GLOMERULAR FILTRATION RATE 137 ML/MIN (>89)
[2017-12-15 06:26] LABS: TOTAL BILIRUBIN ADULT 0.3 MG/DL (0.2-1.0); TOTAL PROTEIN 5.9 GM/DL (6.4-8.2)
[2017-12-15 06:38] LABS: ALKALINE PHOSPHATASE 1050 U/L (45-117)
[2017-12-15] MEDS: CHLORHEXIDINE 0.12% (ORAL KIT) 15 ML CUP MT SCH ×2 (08:00→20:00)
[2017-12-15] MEDS: SODIUM CHLORIDE 0.9% FLUSH 10 ML FLUSH IV FLUSH SCH ×3 (09:00→20:39)
[2017-12-15] MEDS: INSULIN DETEMIR 100 UNITS/ML VIAL SQ SCH ×2 (09:00→20:41)
[2017-12-15] MEDS: ARTIFICIAL TEARS OPTH OINT 3.5 APPLIC/3.5 GM TUBO EACH EYE SCH ×4 (09:00→20:41)
[2017-12-15] MEDS: MULTIVITAMIN TAB PO SCH (09:15)
[2017-12-15] MEDS: FOSPHENYTOIN SODIUM 100 MG PE/2 ML VIAL IV SCH ×2 (09:15→20:39)
[2017-12-15] MEDS: THIAMINE HCL 100 MG TAB OG-TUBE SCH (09:15)
[2017-12-15] MEDS: ASPIRIN 81 MG CHEW TAB CHEW SCH (09:15)
[2017-12-15] MEDS: FLUCONAZOLE 200 MG TAB PO SCH (09:15)
[2017-12-15] MEDS: FAMOTIDINE 20 MG TAB NG SCH ×2 (09:15→20:39)
--- NOTE | 2017-12-15 09:54 | HHI.GIFU ---
Subjective Remarks Patient laying in bed, states still intubated and sedated, not responsive, family wants the patient to have a PEG tube and trach Objective Vitals I&O Vital Signs Date Time Temp Pulse Resp B/P (MAP) Pulse Ox O2 Delivery O2 Flow Rate FiO2 12/15/17 07:35 99 40 12/15/17 06:03 74 12 110/59 (76) 99 12/15/17 06:00 91 12/15/17 05:03 88 12 118/62 (80) 98 12/15/17 04:20 98 40 12/15/17 04:03 98.9 92 14 124/69 (87) 98 12/15/17 04:00 92 12/15/17 04:00 40 12/15/17 03:03 90 14 121/64 (83) 98 12/15/17 02:03 88 14 121/66 (84) 99 12/15/17 02:00 94 12/15/17 01:50 98 40 12/15/17 01:03 90 13 124/67 (86) 98 12/15/17 00:03 99.0 80 12 114/62 (79) 99 12/15/17 00:00 40 12/15/17 00:00 90 12/14/17 23:03 96 16 124/70 (88) 98 12/14/17 22:44 99 40 12/14/17 22:03 86 12 110/63 (79) 99 12/14/17 22:00 77 12/14/17 21:03 92 13 123/69 (87) 99 12/14/17 20:15 99 40 12/14/17 20:00 78 12/14/17 20:00 40 12/14/17 20:00 99.3 78 11 103/60 (74) 99 12/14/17 19:03 94 16 129/71 (90) 98 12/14/17 19:03 94 12/14/17 19:03 94 16 129/71 (90) 98 12/14/17 19:00 94 18 99 12/14/17 19:00 99 Mechanical Ventilator 40 12/14/17 18:03 78 12/14/17 18:03 78 12 113/58 (76) 99 12/14/17 17:03 90 12 116/62 (80) 98 12/14/17 16:42 97 40 12/14/17 16:03 98.7 90 13 111/64 (80) 97 12/14/17 16:03 90 12/14/17 16:00 40 12/14/17 15:03 82 12 111/60 (77) 98 12/14/17 14:03 84 13 113/65 (81) 98 12/14/17 14:03 84 12/14/17 13:56 40 12/14/17 13:40 40 12/14/17 13:40 98 40 12/14/17 13:03 82 23 111/64 (80) 98 12/14/17 12:03 88 12/14/17 12:03 98.7 88 20 110/62 (78) 98 12/14/17 12:00 40 12/14/17 11:03 88 14 114/64 (81) 98 12/14/17 10:48 98 40 12/14/17 10:03 88 12/14/17 10:00 80 17 113/64 (80) 97 I/O 12/14/17 12/14/17 12/14/17 12/15/17 12/15/17 12/15/17 07:00 15:00 23:00 07:00 15:00 23:00 Intake Total 978 ml 1047 ml 713 ml Output Total 500 ml 560 ml 750 ml Balance 478 ml 487 ml -37 ml IV Total 100 ml Tube Feeding 478 ml 447 ml 463 ml Other 500 ml 500 ml 250 ml Output Urine Total 500 ml 560 ml 750 ml # Bowel Movements 1 0 0 Laboratory Laboratory Tests Test 12/15/17 05:43 White Blood Count 8.9 Red Blood Count 2.95 Hemoglobin 9.2 Hematocrit 28.6 Mean Corpuscular Volume 97.1 Mean Corpuscular Hemoglobin 31.2 Mean Corpuscular Hemoglobin Concent 32.2 Red Cell Distribution Width 15.0 Platelet Count 555 Mean Platelet Volume 9.2 Neutrophils (%) (Auto) 75.8 Lymphocytes (%) (Auto) 10.9 Monocytes (%) (Auto) 10.9 Eosinophils (%) (Auto) 1.9 Basophils (%) (Auto) 0.5 Neutrophils # (Auto) 6.7 Lymphocytes # (Auto) 1.0 Monocytes # (Auto) 1.0 Eosinophils # (Auto) 0.2 Basophils # (Auto) 0.0 CBC Comment DIFF FINAL Differential Comment Blood Urea Nitrogen 15 Creatinine 0.46 Random Glucose 155 Total Protein 5.9 Albumin 1.9 Calcium Level 8.1 Alkaline Phosphatase 1050 Aspartate Amino Transf (AST/SGOT) 269 Alanine Aminotransferase (ALT/SGPT) 240 Total Bilirubin 0.3 Sodium Level 137 Potassium Level 4.3 Chloride Level 104 Carbon Dioxide Level 28.4 Anion Gap 5 Estimat Glomerular Filtration Rate 137 Date/Time Source Procedure Growth Status 12/08/17 06:13 Blood Peripheral Aerobic Blood Culture - Final NO GROWTH IN 5 DAYS Complete 12/08/17 06:13 Blood Peripheral Anaerobic Blood Culture - Final NO GROWTH IN 5 DAYS Complete 12/02/17 15:29 Cerebral Spinal Fluid Lumbar Puncture Gram Stain - Final Complete 12/02/17 15:29 Cerebral Spinal Fluid Lumbar Puncture CSF Culture - Final NO GROWTH IN 72 HOURS Complete 12/08/17 06:00 Sputum Nasal Tracheal Aspirate Gram Stain - Final Complete 12/08/17 06:00 Sputum Culture - Final Escherichia Coli Complete 12/08/17 06:09 Urine Catheterized Urine Urine Culture - Final Anna Glabrata Complete Physical Exam HEENT: Pupils round; normocephalic; atraumatic; no jaundice. Throat is clear. Patient is intubated NECK: Neck is supple, no JVD, no lymphadenopathy. CHEST few crackles bilateral CARDIAC: Regular rate and rhythm with no murmur gallop or rubs. ABDOMEN: Soft, nondistended, nontender; no hepatosplenomegaly; bowel sounds are present in all four quadrants. EXTREMITIES: No clubbing, cyanosis, trace edema. SKIN: Normal; no rash; no jaundice. 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 Assessment and Plan Plan Elevated liver function tests, improving slowly, most likely cholecystitis antibiotic, or it could be medication related, Overall guarded prognosis Continue monitoring LFTs 12/15/2017 no significant change, liver function tests are more elevated, most likely cholecystitis or medication related, will continue monitoring If family decided to have PEG tube this can be done tomorrow Verenice Love MD Dec 15, 2017 09:54
--- NOTE | 2017-12-15 10:28 | HHI.CCPN ---
Subjective Remarks/Hospital Course This is a 51-year-old female. Date of admission 11/28/2017. Past medical history includes diabetes mellitus type 1 uncontrolled insulin- dependent with retinopathy on home insulin pump, hypertension, allergic rhinitis and chronic benzodiazepine use. She also has history of breast cancer on raloxifene she originally presented to [facility] ED During the workup, patient was noted to have a blood sugar of 808. Elevated acetone. Sodium 135. Potassium 6.0. Ferritin 2.1. Leukocytosis 25,000. Macrocytic anemia. UA negative for infectious etiology. She was bolused with 3 L of 0.9% NaCl IV fluid bolus. She is received 3 ampules of sodium bicarbonate and 1 g calcium gluconate. Chest x-ray post procedure revealed the CT scan of the head is read by the radiologist as ventriculomegaly but otherwise no acute findings. 11/29: Patient had nonrebreather off all night. PTX now 8 mm. Yells "Help me " "I don't know" Gap has closed, will transition back to SQ insulin if able to pass swallow. Replacing lytes. 11/30: Patient opens eyes to voice. Leftward gaze. Frequent blinking. Withdraws to stimulation bilateral lower extremities. T-max 99.5. Remains on norepinephrine and phenylephrine drips. MRI brain revealed ventriculomegaly. No acute signs of CVA. Echocardiogram EF 40%. 12/01: Afebrile. Patient remains off sedation approximately 24 hours nonresponsive. EEG in process. BAL revealed gram-negative rods the patient continues on Zosyn. The patient remains on vasopressors norepinephrine, vasopressin, and phenylephrine. Versed infusion restarted secondary to seizure activity noted on repeat EEG this a.m.. 12/02: Afebrile. The patient is scheduled for lumbar puncture this a.m., INR 1.0 patient has been off subcu heparin approximately 3 days. The patient continues on Versed and fentanyl infusions to maintain ventilator synchrony and avoidance of subclinical seizures which were noted on the EEG yesterday. The patient continues on multiple vasopressors to include norepinephrine and phenylephrine and vasopressin. Vasopressin currently being weaned off. The patient continues to have persistent leukocytosis though it is slightly downtrending plan for ID consult today appreciate recommendations. Bronchial washings resulted E. coli, currently patient continues on Zosyn. Patient was noted to have a positive fluid balance yesterday the patient received 20 mg of Lasix with adequate diuresis the patient noted to have a sodium level slightly decreased at 135 IV fluids mixed in 0.9 normal saline. 12/03: No acute events overnight lumbar puncture performed yesterday results pending. Dilantin level therapeutic. Phenobarbital level pending. Patient off vasopressin 24 hours. Phenylephrine currently being weaned off. Patient noted to be anemic 1 unit packed cells will be transfused today no pneumothorax chest tube now placed to waterseal today. 12/04: T-max 99.4. Repeat EEG performed today. Patient now withdrawing to pain 4 extremities, and open eyes to painful stimulus. Patient noted to move bilateral lower extremities 1 this shift. Patient tolerating tube feeds, overbreathing vent will begin CPAP trials in the a.m. if clinically stable. Phenylephrine completely discontinued overnight. Norepinephrine has been decreased to 3 mics/min. hemoglobin stable. 12/05: Afebrile. Patient was weaned off of norepinephrine last p.m.. The patient has been off sedation for greater than 48 hours, no change in neurological status opens eyes to deep stimulation, moves extremities 4 withdrawing to painful stimuli. CPAP trials initiated this a.m. the patient tolerated CPAP for approximately 6.5 hours. Chest x-ray remains unchanged no pneumo thorax, plan for removal of chest tube this evening. 12/06 No events overnight. On no sedation. Afebrile. unresponsive s/p removal chest tube yesterday.. 12/07 versed drip off since 12/04.. Eyes open to noxious stimuli, spontaneously moved R hand, withdraws x4. Temp max 99.3. WBC 11.2 today. Remains off pressors. On CPAP 05/23 and tolerating Subjective: 12/08. Temp max 100.4 overnight. Blood, urine, sputum cultures were sent. White blood cell count 13 this morning. Blood pressure was down to 84/46 with map of 56 this morning. Diuresed nearly 4 L yesterday with Lasix 40 IV q12, creatinine increased today. Tolerating tube feeds. Liquid stool x3 overnight. Apneic during multiple attempts at CPAP this morning. No neuro change. EEG bilateral slowing. Bihemispheric abnormalities. No epileptiform features 12/09: Remains encephalopathic, orally intubated on mechanical ventilation. Tolerating tube feeds. Not on any sedation. 12/10: Remains encephalopathic, orally intubated on mechanical ventilation. Tolerating tube feeds. Minimal eye opening with painful stimuli however extremely poor gag response. 12/11: Remains encephalopathic, orally intubated on mechanical ventilation. Tolerating tube feeds. Awaiting MRI/ EEG. 12/12: Remains encephalopathic, orally intubated on mechanical ventilation. No significant improvement in neurologic status noted. Tolerating tube feeds. EEG very abnormal more on the right. MRI brain done yesterday with high parietal lobe ischemic changes however CTA with no major vessel stenosis or aneurysm. 12/13 No events overnight. Remains intubated unresponsive. Afebrile. On no drips. 12/14: Remains encephalopathic, orally intubated on mechanical ventilation. 12/15:The patient tolerated CPAP trials for approximately 6 hours yesterday. The patient still remains encephalopathic. Tentative plan for possible PEG placement and tracheostomy, pending family decision. Objective Vital Signs Date Time Temp Pulse Resp B/P (MAP) Pulse Ox O2 Delivery O2 Flow Rate FiO2 12/15/17 07:35 99 40 12/15/17 06:03 74 12 110/59 (76) 12/15/17 04:03 98.9 12/14/17 19:00 Mechanical Ventilator Intake and Output 12/15/17 12/15/17 12/16/17 08:00 16:00 00:00 Intake Total 713 ml Output Total 750 ml Balance -37 ml Result Diagram: 12/15/17 0543 12/15/17 0543 Imaging Last Impressions Liver Ultrasound 12/12/17 0000 Signed Impressions: Service Date/Time: November 13:20 - CONCLUSION: 1. Marked gallbladder wall thickening with minimal pericholecystic fluid. No stones or sludge. 2. Small bilateral pleural effusions. Dani Titus MD Neck CTA 12/11/17 0000 Signed Impressions: Service Date/Time: Monday, December 11, 2017 23:08 - CONCLUSION: No carotid stenosis. Ac Davis MD Head CTA 12/11/17 0000 Signed Impressions: Service Date/Time: Monday, December 11, 2017 23:08 - CONCLUSION: 1. No large vessel stenosis or aneurysm. Ac Davis MD Brain MRI 12/11/17 0000 Signed Impressions: Service Date/Time: Monday, December 11, 2017 11:12 - CONCLUSION: 1. Faint diffusion restriction predominately along the high right parietal convexity with minimal diffusion restriction on the left. Pattern is somewhat unusual for anoxia with the asymmetry. Possible embolic event. CTA of the cervical and intracranial vessels to be performed for further characterization. 2. Chronic changes with some periventricular small vessel ischemic demyelination. 3. Mild ventricular prominence. In the appropriate clinical setting, findings could represent normal pressure hydrocephalus. 4. Bilateral mastoiditis. Mild chronic sinus disease in the sphenoid bilaterally. Dani Titus MD Chest X-Ray 12/08/17 0000 Signed Impressions: Service Date/Time: Friday, December 08, 2017 08:09 - CONCLUSION: 1. Interval removal of left internal jugular central venous line. 2. Mild improvement in pulmonary opacities. Shaquille Haley MD Gall Bladder Ultrasound 12/03/17 0000 Signed Impressions: Service Date/Time: Sunday, December 03, 2017 07:59 - CONCLUSION: 1. Ascites and bilateral pleural effusions. 2. Mildly distended gallbladder without evidence of wall thickening or cholelithiasis. 3. Otherwise unremarkable exam. Boo Cartwright MD Lumbar Puncture Fluoroscopy 12/02/17 0000 Signed Impressions: Service Date/Time: Saturday, December 02, 2017 15:28 - CONCLUSION: Uncomplicated fluoroscopically guided lumbar puncture. Aly Leigh MD Renal Ultrasound 11/29/17 1656 Signed Impressions: Service Date/Time: Wednesday, November 29, 2017 13:16 - CONCLUSION: 1. Both kidneys are sonographically normal without hydronephrosis or nephrolithiasis. 2. Very abnormal appearance of the gallbladder with mural thickening and minimal pericholecystic fluid Dani Titus MD Head CT 11/28/17 0000 Signed Impressions: Service Date/Time: November 15:46 - CONCLUSION: 1. Ventriculomegaly suggesting central cerebral atrophy versus hydrocephalus. Clinical correlation is recommended. 2. No acute infarct, acute hemorrhage, midline shift or extra-axial fluid collections. Dev Christopher MD Procedures 12/02- lumbar puncture Objective Remarks GENERAL: 61-year-old female critically ill currently orotracheally intubated SKIN: Warm and dry. No rash HEAD: Atraumatic. Normocephalic. EYES: Gaze conjugate. Pupils equal and round about 4 mm and reactive to 2 mm bilaterally. No scleral icterus. No injection. Scleral edema improved. ENT: No nasal bleeding or discharge. Mucous membranes pink and moist NECK: Trachea midline. No JVD. CARDIOVASCULAR: RRR. . No murmur RESPIRATORY: Orally intubated on mechanical ventilation, good air entry bilaterally, no wheezing or crackles GASTROINTESTINAL: NGT L nare with tube feeds running. Abdomen soft, non-tender, nondistended. Bowel sounds present. MUSCULOSKELETAL: Edema improved, ~ 1+ of hands and ble. NEUROLOGICAL: Pupils reactive as per above + cough + gag. Eyes open to deep central noxious stimuli. Withdraws with all extremities. Date of Insertion: Nov 28, 2017 Line: Central Venous Catheter Side: Left Location: Internal, Jugular A/P Assessment and Plan Neuro/Psych: Acute encephalopathy secondary to diabetic ketoacidosis Anxiety disorder NOS Benzodiazepine use Off sedation since 12/04. Neurology Dr. Neville Acetaminophen 650 mg by tube every 6 hours as needed fever CT brain 11/28 revealed Ventriculomegaly suggesting central cerebral atrophy versus hydrocephalus. Clinical correlation is recommended. No acute infarct, acute hemorrhage, midline shift or extra-axial fluid collections. She is on amitriptyline 10 mg daily at home. This has been held UDS negative MRI brain 11/29 revealed mild to moderate ventriculomegaly. EEG - 12/07 bihemispheric slowing. No epileptiform features. EEG 11/28- bihemispheric slowing with some left frontocentral sharp waves and phase reversal suggesting an epileptiform abnormality and possible structural lesion in this region. No ictal pattern present. 11/30 levetiracetam 500 mg IV every 12 hours after 1 g bolus, Keppra discontinued 12/05 per neurology Neurology -Dr. Neville, on Phenobarb 65mg Q8 (level was 15 on 12/06), Cerebyx 200mg/PE Q12. Phenytoin level 9.7, Albumin corrected 22. Discussed with Dr. Neville -stopping phenobarbital on 12/10. 12/02 Ophthalmology -no eye infection Lacri-Lube applied for scleral edema 12/02-lumbar puncture-negative. CSF HSV negative 12/03-cortisol level 17 ammonia level 22 12/11 EEG consistent with a severe encephalopathy. There is more prominent slowing over the right hemisphere. MRI brain done on 12/11 with ischemic changes high left parietal lobe however CTA brain with no major vessel stenosis or aneurysm. F/U repeat EEG . CV: History of hypertension Shock, resolved Elevated troponin Acute systolic heart failure ejection fraction 40% NSTEMI cardiomyopathy Monitor HR and BP keep MAP>65mmHg on atorvastatin 10 mg by tube daily, will hold for elevated LFT's Continue aspirin 81 mg by tube daily 2D echocardiogram revealed EF around 40%. LV increased size. Septal hypokinesis. 12/03- Cardiology has signed off Resp: Acute hypoxemic respiratory failure Hemoptysis-resolved Tobacco abuse/ongoing Iatrogenic PTX status post chest tube placement ACV //, Daily SBT. mental status prevents extubation at this time. Patient will need trach if family wants aggressive care Intubated 11/29 . Ventilator bundle Albuterol/ipratropium aerosols every 6 hours with albuterol aerosols every 2 hours as needed dyspnea 12/03 Right chest tube in placed to waterseal 11/29 Status post chest tube placement see documentation, removed 12/05. Status post bronchoscopy 11/29. GI: Moderate protein energy malnutrition Glucerna 1.5, change goal rate to 40 mL/h per nutrition recommendations. famotidine for GI prophylaxis Docusate sodium/senna 1 tablet twice daily for bowel regimen 12/03 gallbladder ultrasound -gallbladder mildly distended without evidence of wall thickening or cholelithiasis. There is ascites and pleural effusions. GI eval noted. Continue multivitamin/thiamine. thiamine via og FEN/RENAL: BRIELLE- resolved Hypernatremia Monitor renal function, I/O's, electrolytes replacement per protocol. Free water 250ml Qq6 hours. Creatinine increased, edema down, hold lasix. Renal ultrasound revealed no medical renal disease. Endo: Insulin-dependent diabetes mellitus type 1 uncontrolled Diabetic ketoacidosis - resolved Originally, patient received 3 L normal saline in the ED along with 3 refills and bicarbonate, 1 ampule of calcium gluconate. Beta hydroxybutyrate cleared 11/29 Insulin pump was disconnected 11/28. According to sister Evelyn Obrien, patient had received a new insulin pump within the past 48 hours [employer]. She has no history of DKA in the past to her knowledge TSH 0.38 Continue SSI Novulog medium protocol with accucheck every 4 hours maintain euglycemia Levemir 7 q12 Heme: Leukocytosis- Resolved Macrocytic anemia Monitor CBC daily. Follow trends 12/03 transfused 1 unit of packed red blood cells ID: Community-acquired versus aspiration BC x2, UA (-) inf A/B negative 11/29 S/P bronchoscopy with sample sent from left lower lobe 11/29 Sputum (BAL)-E.coli, pansensitive ID is following, Dr. Childs On Rocephin/ oral fluconazole Vancomycin has been discontinued 12/06 per ID 12/02-lumbar puncture-negative Access PIV in place Left IJ CVL placed 11/29-12/07. Prophylaxis -GI -famotidine for stress ulcer prophylaxis -DVT -SCD/continue heparin SQ Dr. Munoz called patient's sister, Evelyn Gramajo, to update 12/08. No answer. RN states she hasn't visited in several days. Consulted palliative care to assist with deciding goals of therapy as patient appears to have significant encephalopathy Discussed with patient's family at bedside in length on 12/10 including patient' s son who arrived from [place] as well as sister. Explained encephalopathy and possible contributing factors. Discussed possible need for tracheostomy and PEG tube placement. Family voiced understanding and were agreeable with plan of care. Discussed with Dr. Neville on 12/10 who agrees with obtaining EEG and repeating MRI brain. Dr. Neville discussing neurologic prognosis with patient's son following review of those results. Family in discussions with palliative care regarding decision for trach/ PEG vs de-escalation of therapy. Level 3 Physician Janice Alegria MD Dec 15, 2017 10:28
--- NOTE | 2017-12-15 15:07 | RADRPT ---
EXAM DATE/TIME: 12/15/2017 13:57 [facility] COMPARISON: No previous studies available for comparison. INDICATIONS : Left arm swelling. MEDICAL HISTORY : Diabetes mellitus type 1. Anxiety. SURGICAL HISTORY : Bilateral cataract surgery. Dental implants. Bunionectomy. ENCOUNTER: Initial ACUITY: 3 weeks PAIN SCORE: Non-responsive LOCATION: Left arm. FINDINGS: There is nonocclusive thrombus within the left internal jugular vein. There is spontaneous flow documented in the brachial, basilic, cephalic, axillary, and subclavian vei ns. The vessels are compressible and augmentation response is documented. No filling defects are se en. The flow is phasic with respiration. CONCLUSION: Nonocclusive thrombus within left internal jugular vein. The remaining venous structures in the left upper extremity appear patent. Uziel Thomas MD on December 15, 2017 at 15:03 Board Certified Radiologist. This report was verified electronically.
[2017-12-15] MEDS: cefTRIAXone INJ 2,000 MG in SODIUM CHLORIDE 0.9% INJ 100 ML IV SCH (17:19)
[2017-12-16] VITALS (24 sets, daily range): BP systolic 100–163; BP diastolic 58–77; PULSE 67–97; RESP 12–36; TEMP 97.5–99; O2SAT 93–100
[2017-12-16] MEDS: HEPARIN SODIUM - SQ 10,000 UNITS/ML VIAL SQ SCH ×3 (02:00→17:40)
[2017-12-16] MEDS: FREE WATER G-TUBE SCH (03:00)
[2017-12-16] MEDS: INSULIN ASPART SUPPLEMENTAL SCALE SQ SCH ×6 (04:00→20:00)
[2017-12-16] MEDS: CHLORHEXIDINE GLUCONATE 2 % 1 PACK (2 CLOTHS) TOP SCH (04:00)
--- NOTE | 2017-12-16 04:41 | RADRPT ---
EXAM DATE/TIME: 12/16/2017 04:05 [facility] COMPARISON: CHEST SINGLE AP, December 14, 2017, 6:04. INDICATIONS : Shortness of breath, possible pulmonary disease. MEDICAL HISTORY : Diabetes mellitus type I. SURGICAL HISTORY : None. ENCOUNTER: Subsequent ACUITY: 2 weeks PAIN SCORE: Non-responsive. LOCATION: Bilateral chest FINDINGS: A single view of the chest demonstrates persistent left basilar consolidation with possible associate d effusion. There is some increased density in the right base which could represent a posterior layer ing effusion, unchanged. Right lung is otherwise clear. Heart size is normal. Nasogastric and endotra cheal tubes are stable in position. Osseous structures are intact. CONCLUSION: 1. Stable left basilar consolidation/effusion. Possible posterior layering effusion on the right, unc hanged. 2. Stable position of life support tubes Dani Titus MD on December 16, 2017 at 4:37 Board Certified Radiologist. This report was verified electronically.
--- NOTE | 2017-12-16 07:57 | HHI.CCPN ---
Subjective Remarks/Hospital Course This is a 51-year-old female. Date of admission 11/28/2017. Past medical history includes diabetes mellitus type 1 uncontrolled insulin- dependent with retinopathy on home insulin pump, hypertension, allergic rhinitis and chronic benzodiazepine use. She also has history of breast cancer on raloxifene she originally presented to [facility] ED During the workup, patient was noted to have a blood sugar of 808. Elevated acetone. Sodium 135. Potassium 6.0. Ferritin 2.1. Leukocytosis 25,000. Macrocytic anemia. UA negative for infectious etiology. She was bolused with 3 L of 0.9% NaCl IV fluid bolus. She is received 3 ampules of sodium bicarbonate and 1 g calcium gluconate. Chest x-ray post procedure revealed the CT scan of the head is read by the radiologist as ventriculomegaly but otherwise no acute findings. 11/29: Patient had nonrebreather off all night. PTX now 8 mm. Yells "Help me " "I don't know" Gap has closed, will transition back to SQ insulin if able to pass swallow. Replacing lytes. 11/30: Patient opens eyes to voice. Leftward gaze. Frequent blinking. Withdraws to stimulation bilateral lower extremities. T-max 99.5. Remains on norepinephrine and phenylephrine drips. MRI brain revealed ventriculomegaly. No acute signs of CVA. Echocardiogram EF 40%. 12/01: Afebrile. Patient remains off sedation approximately 24 hours nonresponsive. EEG in process. BAL revealed gram-negative rods the patient continues on Zosyn. The patient remains on vasopressors norepinephrine, vasopressin, and phenylephrine. Versed infusion restarted secondary to seizure activity noted on repeat EEG this a.m.. 12/02: Afebrile. The patient is scheduled for lumbar puncture this a.m., INR 1.0 patient has been off subcu heparin approximately 3 days. The patient continues on Versed and fentanyl infusions to maintain ventilator synchrony and avoidance of subclinical seizures which were noted on the EEG yesterday. The patient continues on multiple vasopressors to include norepinephrine and phenylephrine and vasopressin. Vasopressin currently being weaned off. The patient continues to have persistent leukocytosis though it is slightly downtrending plan for ID consult today appreciate recommendations. Bronchial washings resulted E. coli, currently patient continues on Zosyn. Patient was noted to have a positive fluid balance yesterday the patient received 20 mg of Lasix with adequate diuresis the patient noted to have a sodium level slightly decreased at 135 IV fluids mixed in 0.9 normal saline. 12/03: No acute events overnight lumbar puncture performed yesterday results pending. Dilantin level therapeutic. Phenobarbital level pending. Patient off vasopressin 24 hours. Phenylephrine currently being weaned off. Patient noted to be anemic 1 unit packed cells will be transfused today no pneumothorax chest tube now placed to waterseal today. 12/04: T-max 99.4. Repeat EEG performed today. Patient now withdrawing to pain 4 extremities, and open eyes to painful stimulus. Patient noted to move bilateral lower extremities 1 this shift. Patient tolerating tube feeds, overbreathing vent will begin CPAP trials in the a.m. if clinically stable. Phenylephrine completely discontinued overnight. Norepinephrine has been decreased to 3 mics/min. hemoglobin stable. 12/05: Afebrile. Patient was weaned off of norepinephrine last p.m.. The patient has been off sedation for greater than 48 hours, no change in neurological status opens eyes to deep stimulation, moves extremities 4 withdrawing to painful stimuli. CPAP trials initiated this a.m. the patient tolerated CPAP for approximately 6.5 hours. Chest x-ray remains unchanged no pneumo thorax, plan for removal of chest tube this evening. 12/06 No events overnight. On no sedation. Afebrile. unresponsive s/p removal chest tube yesterday.. 12/07 versed drip off since 12/04.. Eyes open to noxious stimuli, spontaneously moved R hand, withdraws x4. Temp max 99.3. WBC 11.2 today. Remains off pressors. On CPAP 05/23 and tolerating Subjective: 12/08. Temp max 100.4 overnight. Blood, urine, sputum cultures were sent. White blood cell count 13 this morning. Blood pressure was down to 84/46 with map of 56 this morning. Diuresed nearly 4 L yesterday with Lasix 40 IV q12, creatinine increased today. Tolerating tube feeds. Liquid stool x3 overnight. Apneic during multiple attempts at CPAP this morning. No neuro change. EEG bilateral slowing. Bihemispheric abnormalities. No epileptiform features 12/09: Remains encephalopathic, orally intubated on mechanical ventilation. Tolerating tube feeds. Not on any sedation. 12/10: Remains encephalopathic, orally intubated on mechanical ventilation. Tolerating tube feeds. Minimal eye opening with painful stimuli however extremely poor gag response. 12/11: Remains encephalopathic, orally intubated on mechanical ventilation. Tolerating tube feeds. Awaiting MRI/ EEG. 12/12: Remains encephalopathic, orally intubated on mechanical ventilation. No significant improvement in neurologic status noted. Tolerating tube feeds. EEG very abnormal more on the right. MRI brain done yesterday with high parietal lobe ischemic changes however CTA with no major vessel stenosis or aneurysm. 12/13 No events overnight. Remains intubated unresponsive. Afebrile. On no drips. 12/14: Remains encephalopathic, orally intubated on mechanical ventilation. 12/15:The patient tolerated CPAP trials for approximately 6 hours yesterday. The patient still remains encephalopathic. Tentative plan for possible PEG placement and tracheostomy, pending family decision. 12/16 Patient was transferred from PO yesterday for trach and PEG tube placement today. Afebrile. Objective Vital Signs Date Time Temp Pulse Resp B/P (MAP) Pulse Ox O2 Delivery O2 Flow Rate FiO2 12/16/17 06:00 90 12/16/17 04:31 97 35 12/16/17 04:00 98.8 15 131/64 (86) 12/15/17 19:00 Mechanical Ventilator Intake and Output 12/16/17 12/16/17 12/16/17 07:59 15:59 23:59 Intake Total 456 ml Output Total 1000 ml Balance -544 ml Result Diagram: 12/15/17 0543 12/15/17 0543 Other Results Laboratory Tests Test 12/16/17 06:24 12/16/17 06:34 Imaging Last Impressions Chest X-Ray 12/16/17 0600 Signed Impressions: Service Date/Time: Saturday, December 16, 2017 04:05 - CONCLUSION: 1. Stable left basilar consolidation/effusion. Possible posterior layering effusion on the right, unchanged. 2. Stable position of life support tubes Dani Titus MD Upper Extremity Ultrasound 12/15/17 0000 Signed Impressions: Service Date/Time: Friday, December 15, 2017 13:57 - CONCLUSION: Nonocclusive thrombus within left internal jugular vein. The remaining venous structures in the left upper extremity appear patent. Uziel Thomas MD Liver Ultrasound 12/12/17 0000 Signed Impressions: Service Date/Time: November 13:20 - CONCLUSION: 1. Marked gallbladder wall thickening with minimal pericholecystic fluid. No stones or sludge. 2. Small bilateral pleural effusions. Dani Titus MD Neck CTA 12/11/17 0000 Signed Impressions: Service Date/Time: Monday, December 11, 2017 23:08 - CONCLUSION: No carotid stenosis. Ac Davis MD Head CTA 12/11/17 0000 Signed Impressions: Service Date/Time: Monday, December 11, 2017 23:08 - CONCLUSION: 1. No large vessel stenosis or aneurysm. Ac Davis MD Brain MRI 12/11/17 Signed Impressions: Service Date/Time: Monday, December 11, 2017 11:12 - CONCLUSION: 1. Faint diffusion restriction predominately along the high right parietal convexity with minimal diffusion restriction on the left. Pattern is somewhat unusual for anoxia with the asymmetry. Possible embolic event. CTA of the cervical and intracranial vessels to be performed for further characterization. 2. Chronic changes with some periventricular small vessel ischemic demyelination. 3. Mild ventricular prominence. In the appropriate clinical setting, findings could represent normal pressure hydrocephalus. 4. Bilateral mastoiditis. Mild chronic sinus disease in the sphenoid bilaterally. Dani Titus MD Gall Bladder Ultrasound 12/03/17 0000 Signed Impressions: Service Date/Time: Sunday, December 03, 2017 07:59 - CONCLUSION: 1. Ascites and bilateral pleural effusions. 2. Mildly distended gallbladder without evidence of wall thickening or cholelithiasis. 3. Otherwise unremarkable exam. Boo Cartwright MD Lumbar Puncture Fluoroscopy 12/02/17 0000 Signed Impressions: Service Date/Time: Saturday, December 02, 2017 15:28 - CONCLUSION: Uncomplicated fluoroscopically guided lumbar puncture. Aly Leigh MD Renal Ultrasound 11/29/17 1656 Signed Impressions: Service Date/Time: Wednesday, November 29, 2017 13:16 - CONCLUSION: 1. Both kidneys are sonographically normal without hydronephrosis or nephrolithiasis. 2. Very abnormal appearance of the gallbladder with mural thickening and minimal pericholecystic fluid Dani Titus MD Head CT 11/28/17 0000 Signed Impressions: Service Date/Time: November 15:46 - CONCLUSION: 1. Ventriculomegaly suggesting central cerebral atrophy versus hydrocephalus. Clinical correlation is recommended. 2. No acute infarct, acute hemorrhage, midline shift or extra-axial fluid collections. Dev Christopher MD Procedures 12/02- lumbar puncture Objective Remarks GENERAL: 61-year-old female critically ill currently orotracheally intubated SKIN: Warm and dry. No rash HEAD: Atraumatic. Normocephalic. EYES: Gaze conjugate. Pupils equal and round about 4 mm and reactive to 2 mm bilaterally. No scleral icterus. No injection. Scleral edema improved. ENT: No nasal bleeding or discharge. Mucous membranes pink and moist NECK: Trachea midline. No JVD. CARDIOVASCULAR: RRR. . No murmur RESPIRATORY: Orally intubated on mechanical ventilation, good air entry bilaterally, no wheezing or crackles GASTROINTESTINAL: NGT L nare with tube feeds running. Abdomen soft, non-tender, nondistended. Bowel sounds present. MUSCULOSKELETAL: Edema improved, ~ 1+ of hands and ble. NEUROLOGICAL: Pupils reactive as per above + cough + gag. Eyes open to deep central noxious stimuli. Withdraws with all extremities. Date of Insertion: Nov 28, 2017 Line: Central Venous Catheter Side: Left Location: Internal, Jugular A/P Assessment and Plan Neuro/Psych: Acute encephalopathy secondary to diabetic ketoacidosis Anxiety disorder NOS Benzodiazepine use Off sedation since 12/04. Neurology Dr. Neville Acetaminophen 650 mg by tube every 6 hours as needed fever CT brain 11/28 revealed Ventriculomegaly suggesting central cerebral atrophy versus hydrocephalus. Clinical correlation is recommended. No acute infarct, acute hemorrhage, midline shift or extra-axial fluid collections. She is on amitriptyline 10 mg daily at home. This has been held UDS negative MRI brain 11/29 revealed mild to moderate ventriculomegaly. EEG - 12/07 bihemispheric slowing. No epileptiform features. EEG 11/28- bihemispheric slowing with some left frontocentral sharp waves and phase reversal suggesting an epileptiform abnormality and possible structural lesion in this region. No ictal pattern present. 11/30 levetiracetam 500 mg IV every 12 hours after 1 g bolus, Keppra discontinued 12/05 per neurology Neurology -Dr. Neville, on Phenobarb 65mg Q8 (level was 15 on 12/06), Cerebyx 200mg/PE Q12. Phenytoin level 9.7, Albumin corrected 22. Discussed with Dr. Neville -stopping phenobarbital on 12/10. 12/02 Ophthalmology -no eye infection Lacri-Lube applied for scleral edema 12/02-lumbar puncture-negative. CSF HSV negative 12/03-cortisol level 17 ammonia level 22 12/11 EEG consistent with a severe encephalopathy. There is more prominent slowing over the right hemisphere. MRI brain done on 12/11 with ischemic changes high left parietal lobe however CTA brain with no major vessel stenosis or aneurysm. . CV: History of hypertension Shock, resolved Elevated troponin Acute systolic heart failure ejection fraction 40% NSTEMI cardiomyopathy Monitor HR and BP keep MAP>65mmHg Atorvastatin 10 mg by tube daily on hold for elevated LFT's Continue aspirin 81 mg by tube daily 2D echocardiogram revealed EF around 40%. LV increased size. Septal hypokinesis. 12/03- Cardiology has signed off Resp: Acute hypoxemic respiratory failure Hemoptysis-resolved Tobacco abuse/ongoing Iatrogenic PTX status post chest tube placement ACV 12 //08/23/39, Daily SBT. mental status prevents extubation at this time. Patient will need trach if family wants aggressive care Intubated 11/29 . Ventilator bundle Albuterol/ipratropium aerosols every 6 hours with albuterol aerosols every 2 hours as needed dyspnea 12/03 Right chest tube in placed to waterseal 11/29 Status post chest tube placement see documentation, removed 12/05. Status post bronchoscopy 11/29. Will proceed for trach today GI: Moderate protein energy malnutrition Elevated LFT's Glucerna 1.5, change goal rate to 40 mL/h per nutrition recommendations on hold for PEG tube placement today famotidine for GI prophylaxis Docusate sodium/senna 1 tablet twice daily for bowel regimen 12/12 US Liver: Marked gallbladder wall thickening with minimal pericholecystic fluid. No stones or sludge. Small bilateral pleural effusions. 12/03 gallbladder ultrasound -gallbladder mildly distended without evidence of wall thickening or cholelithiasis. There is ascites and pleural effusions. GI eval noted. Continue multivitamin/thiamine. thiamine via og FEN/RENAL: BRIELLE- resolved Hyponatremia Monitor renal function, I/O's, electrolytes replacement per protocol. d/c free water, place on NS@84ml/hr Renal ultrasound revealed no medical renal disease. Endo: Insulin-dependent diabetes mellitus type 1 uncontrolled Diabetic ketoacidosis - resolved Originally, patient received 3 L normal saline in the ED along with 3 refills and bicarbonate, 1 ampule of calcium gluconate. Beta hydroxybutyrate cleared 11/29 Insulin pump was disconnected 11/28. 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 She has no history of DKA in the past to her knowledge TSH 0.38 Continue SSI Novulog medium protocol with accucheck every 4 hours maintain euglycemia Levemir 7 q12 Heme: Leukocytosis- Resolved Macrocytic anemia Monitor CBC daily. Follow trends 12/03 transfused 1 unit of packed red blood cells ID: Community-acquired versus aspiration BC x2, UA (-) inf A/B negative 11/29 S/P bronchoscopy with sample sent from left lower lobe 11/29 Sputum (BAL)-E.coli, pansensitive ID is following, Dr. Childs On Rocephin/ oral fluconazole Vancomycin has been discontinued 12/06 per ID 12/02-lumbar puncture-negative Access PIV in place Left IJ CVL placed 11/29-12/07. Prophylaxis -GI -famotidine for stress ulcer prophylaxis -DVT -SCD/continue heparin SQ Palliative care is following Level 3 Edouard Mayo MD Dec 16, 2017 07:57
[2017-12-16 08:11] LABS: ALBUMIN 2.1 GM/DL (3.4-5.0); BICARBONATE 27.1 MEQ/L (21.0-32.0); CALCIUM 8.5 MG/DL (8.5-10.1); CREATININE 0.61 MG/DL (0.50-1.00)
[2017-12-16 08:13] LABS: HEMATOCRIT 27.6 % (35.0-46.0); HEMOGLOBIN 9.5 GM/DL (11.6-15.3); MEAN CELL VOLUME 97.7 FL (80.0-100.0); MEAN CORPUSCULAR HEMOGLOBIN 33.7 PG (27.0-34.0); MEAN CORPUSCULAR HGB CONC 34.5 % (32.0-36.0); MEAN PLATELET VOLUME 9.3 FL (7.0-11.0); PLATELET COUNT 559 TH/MM3 (150-450); RED BLOOD COUNT 2.83 MIL/MM3 (4.00-5.30); RED CELL DISTRIBUTION WIDTH 15.1 % (11.6-17.2); WHITE BLOOD COUNT 9.5 TH/MM3 (4.0-11.0)
[2017-12-16 08:27] LABS: DIRECT BILIRUBIN ADULT 0.1 MG/DL (0.0-0.2); INDIRECT BILIRUBIN 0.2 MG/DL (0.0-0.8); TOTAL BILIRUBIN ADULT 0.3 MG/DL (0.2-1.0); TOTAL PROTEIN 6.3 GM/DL (6.4-8.2)
[2017-12-16] MEDS: INSULIN DETEMIR 100 UNITS/ML VIAL SQ SCH ×2 (09:00→22:08)
[2017-12-16] MEDS: FLUCONAZOLE 200 MG TAB PO SCH (10:00)
[2017-12-16] MEDS: FAMOTIDINE 20 MG TAB NG SCH ×2 (10:00→21:49)
[2017-12-16] MEDS: ASPIRIN 81 MG CHEW TAB CHEW SCH (10:00)
[2017-12-16] MEDS: THIAMINE HCL 100 MG TAB OG-TUBE SCH (10:00)
[2017-12-16] MEDS: MULTIVITAMIN TAB PO SCH (10:00)
[2017-12-16] MEDS: SODIUM CHLOR 0.9% 1000 ML INJ 1,000 ML IV SCH ×2 (10:00→22:11)
[2017-12-16] MEDS: FOSPHENYTOIN SODIUM 100 MG PE/2 ML VIAL IV SCH ×2 (10:01→21:50)
[2017-12-16] MEDS: ARTIFICIAL TEARS OPTH OINT 3.5 APPLIC/3.5 GM TUBO EACH EYE SCH ×4 (10:02→21:00)
[2017-12-16] MEDS: SODIUM CHLORIDE 0.9% FLUSH 10 ML FLUSH IV FLUSH SCH ×3 (10:03→22:08)
[2017-12-16] MEDS: CHLORHEXIDINE 0.12% (ORAL KIT) 15 ML CUP MT SCH ×2 (10:08→22:09)
[2017-12-16] MEDS ORDERED: ceFAZolin INJ 1,000 MG VIAL IV ONE (12:00)
[2017-12-16] MEDS ORDERED: PROPOFOL 200 MG/20 ML AMP IV ONE (12:00)
--- NOTE | 2017-12-16 12:21 | PD.PROCEDR ---
GI Procedure PROCEDURE PERFORMED Upper endoscopy with PEG tube placement INDICATION FOR PROCEDURE Dysphagia, patient intubated she needed long-term route for feeding PROCEDURE: The procedure, risks and benefits were discussed with family of Ms. Davis and informed consent was obtained. Anesthesia sedated her with Diprivan. She was placed in the left lateral decubitus position. EGD: The Pentax videoscope was introduced through the oropharynx and advanced to the second portion of the duodenum under direct visualization. The scope was brought back to the stomach retroflexion was performed in the stomach the area for the PEG tube was identified by illumination and indentation, sterilized with Betadine, injected with lidocaine, and the Angiocath needle was passed through the abdominal wall with a wire retrieved by snare and a small incision was done at the site with 20 Polish Microvasive PEG tube was placed in the left upper quadrant without any difficulty, verification of the PEG tube placement was done endoscopically at the end of the case. ESTIMATED BLOOD LOSS: None SPECIMENS REMOVED: None COMPLICATIONS: None IMPRESSION: Mild to moderate duodenitis otherwise normal upper endoscopy PEG tube was placed in the left upper quadrant, 20 Polish 1 g of Ancef was given during the procedure PLAN: N.p.o. for 6 hours if site okay may start using the PEG tube after that Nutritional consult for PEG tube feeding recommendation Verenice Love MD Dec 16, 2017 12:21
--- NOTE | 2017-12-16 12:22 | HHI.GIFU ---
Subjective Remarks Patient laying in bed, intubated, nonresponsive Objective Vitals I&O Vital Signs Date Time Temp Pulse Resp B/P (MAP) Pulse Ox O2 Delivery O2 Flow Rate FiO2 12/16/17 12:10 93 35 12/16/17 10:00 88 12/16/17 10:00 88 13 128/61 (83) 96 12/16/17 09:00 85 14 120/69 (86) 97 12/16/17 09:00 85 12/16/17 08:13 96 35 12/16/17 08:00 99.0 90 16 132/72 (92) 96 12/16/17 08:00 90 12/16/17 08:00 35 12/16/17 07:00 87 12/16/17 07:00 87 15 127/60 (82) 97 12/16/17 06:00 90 12/16/17 04:31 97 35 12/16/17 04:00 35 12/16/17 04:00 98.8 97 15 131/64 (86) 99 12/16/17 04:00 91 12/16/17 02:00 89 12/16/17 00:00 35 12/16/17 00:00 99.0 91 14 120/66 (84) 99 12/16/17 00:00 94 12/15/17 22:55 97 35 12/15/17 22:00 92 12/15/17 20:09 98 35 12/15/17 20:00 85 12/15/17 20:00 98.5 85 14 120/63 (82) 99 12/15/17 20:00 35 12/15/17 19:00 99 Mechanical Ventilator 40 12/15/17 18:00 86 12/15/17 18:00 86 15 122/68 (86) 99 12/15/17 17:00 78 18 123/66 (85) 99 12/15/17 16:48 99 35 12/15/17 16:00 35 12/15/17 16:00 81 12/15/17 16:00 98.6 81 18 106/63 (77) 99 12/15/17 14:50 90 19 100 12/15/17 14:47 90 16 119/68 (85) 100 12/15/17 14:13 95 40 12/15/17 14:13 40 12/15/17 14:03 92 16 117/67 (84) 99 12/15/17 14:00 96 12/15/17 14:00 96 19 99 12/15/17 13:03 90 19 112/62 (79) 100 12/15/17 13:00 84 13 98 I/O 12/15/17 12/15/17 12/15/17 12/16/17 12/16/17 12/16/17 07:00 15:00 23:00 07:00 15:00 23:00 Intake Total 713 ml 250 ml 456 ml Output Total 750 ml 350 ml 1000 ml Balance -37 ml -100 ml -544 ml IV Total 100 ml Tube Feeding 463 ml 206 ml Other 250 ml 150 ml 250 ml Output Urine Total 750 ml 350 ml 1000 ml # Bowel Movements 0 1 1 Laboratory Laboratory Tests Test 12/16/17 06:24 12/16/17 06:34 White Blood Count 9.5 Red Blood Count 2.83 Hemoglobin 9.5 Hematocrit 27.6 Mean Corpuscular Volume 97.7 Mean Corpuscular Hemoglobin 33.7 Mean Corpuscular Hemoglobin Concent 34.5 Red Cell Distribution Width 15.1 Platelet Count 559 Mean Platelet Volume 9.3 Blood Urea Nitrogen 17 Creatinine 0.61 Random Glucose 246 Total Protein 6.3 Albumin 2.1 Calcium Level 8.5 Alkaline Phosphatase 1195 Aspartate Amino Transf (AST/SGOT) 200 Alanine Aminotransferase (ALT/SGPT) 243 Total Bilirubin 0.3 Direct Bilirubin 0.1 Sodium Level 135 Potassium Level 4.6 Chloride Level 99 Carbon Dioxide Level 27.1 Anion Gap 9 Estimat Glomerular Filtration Rate 99 Indirect Bilirubin 0.2 Date/Time Source Procedure Growth Status 12/08/17 06:13 Blood Peripheral Aerobic Blood Culture - Final NO GROWTH IN 5 DAYS Complete 12/08/17 06:13 Blood Peripheral Anaerobic Blood Culture - Final NO GROWTH IN 5 DAYS Complete 12/02/17 15:29 Cerebral Spinal Fluid Lumbar Puncture Gram Stain - Final Complete 12/02/17 15:29 Cerebral Spinal Fluid Lumbar Puncture CSF Culture - Final NO GROWTH IN 72 HOURS Complete 12/08/17 06:00 Sputum Nasal Tracheal Aspirate Gram Stain - Final Complete 12/08/17 06:00 Sputum Culture - Final Escherichia Coli Complete 12/08/17 06:09 Urine Catheterized Urine Urine Culture - Final Anna Glabrata Complete Physical Exam HEENT: Pupils round; . Throat is clear. Patient is intubated NECK: Neck is supple, no JVD, no lymphadenopathy. CHEST few crackles bilateral CARDIAC: Regular rate and rhythm with no murmur gallop or rubs. ABDOMEN: Soft, nondistended, nontender; no hepatosplenomegaly; bowel sounds are present in all four quadrants. EXTREMITIES: No clubbing, cyanosis, trace edema. SKIN: Normal; no rash; no jaundice. 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 Assessment and Plan Plan Elevated liver function tests, improving slowly, most likely cholecystitis antibiotic, or it could be medication related, Overall guarded prognosis Continue monitoring LFTs 12/15/2017 no significant change, liver function tests are more elevated, most likely cholecystitis or medication related, will continue monitoring If family decided to have PEG tube this can be done tomorrow 12/16/2017 liver function tests slightly improved today, PEG tube was placed IMPRESSION: Mild to moderate duodenitis otherwise normal upper endoscopy PEG tube was placed in the left upper quadrant, 20 Mongolian 1 g of Ancef was given during the procedure PLAN: N.p.o. for 6 hours if site okay may start using the PEG tube after that Nutritional consult for PEG tube feeding recommendation Verenice Love MD Dec 16, 2017 12:22
[2017-12-16] MEDS ORDERED: VECURONIUM BROMIDE 10 MG VIAL IV PUSH ONE (12:30)
[2017-12-16] MEDS ORDERED: MIDAZOLAM HCL 2 MG/2 ML VIAL IV PUSH ONE (12:30)
[2017-12-16] MEDS ORDERED: fentaNYL DRIP 250 ML IV PRN (13:00)
--- NOTE | 2017-12-16 14:20 | PD.PROCEDR ---
Procedure Note Procedure Procedure: Diagnostic Fiberoptic Bronchoscopy Diagnosis: Chronic respiratory failure Indications: Need for placement of percutaneous dilation tracheostomy Consent: Written consent was obtained Anesthesia: see percutaneous tracheostomy note Description of the Procedure: The patient was sedated and mechanically ventilated. The patient was placed on 100% FIO2 and a volume control mode of ventilation. The fiberoptic bronchoscopy was inserted via oral endotracheal tube. The trachea, right and left mainstem bronchi were evaluated. The endobronchial anatomy was normal. At this point, the percutaneous dilation tracheostomy procedure was performed. The needle, guidewire, dilator, and tracheostomy were all performed under direct bronchoscopic guidance and visualization. Once the tracheostomy was in place, the bronchoscope was inserted through the tracheostomy, and the lumen of the tracheostomy was confirmed in the lumen of the trachea prior to any positive pressure ventilation. The patient tolerated the procedure well with no hemodynamic instability or hypoxia. There were no immediate complications noted. At the conclusion of the procedure, the patient was placed back on their pre-procedure ventilatory settings. There was minimal EBL. A chest x-ray has been ordered. Jorge Thornton MD Dec 16, 2017 14:20
--- NOTE | 2017-12-16 14:21 | RADRPT ---
EXAM DATE/TIME: 12/16/2017 14:01 [facility] COMPARISON: CHEST SINGLE AP, December 16, 2017, 4:05. INDICATIONS : Post ET tube placement MEDICAL HISTORY : diabetic SURGICAL HISTORY : None. ENCOUNTER: Subsequent ACUITY: 2 weeks PAIN SCORE: Non-responsive. LOCATION: Bilateral chest FINDINGS: Portable AP view of the chest and demonstrates a normal-sized cardiac silhouette. Tracheostomy is in the midline overlying the tracheal air shadow. There are stable moderate bibasilar pleural-parenchyma l opacities. No pneumothorax is visualized. Bones demonstrate no acute finding. CONCLUSION: 1. No pneumothorax following tracheostomy placement. Tracheostomy appears in appropriate position. 2. Stable bibasilar opacities characteristic of pleural effusions with associated volume loss and/or consolidation. Uziel Troy MD on December 16, 2017 at 14:18 Board Certified Radiologist. This report was verified electronically.
[2017-12-16 14:46] LABS: PROTHROMBIN TIME - PATIENT 10.1 SEC (9.8-11.6)
[2017-12-16] MEDS: cefTRIAXone INJ 2,000 MG in SODIUM CHLORIDE 0.9% INJ 100 ML IV SCH (17:40)
--- NOTE | 2017-12-16 19:19 | MG ---
cc: Patrick Rodríguez MD EEG NUMBER: [id number] NOTE: Hyperventilation not performed. Intubated, unresponsive. Diabetes, breast cancer. MEDICATIONS: Cerebyx. FINDINGS: Some diffuse 5 Hz slowing is seen. There is some not quite sharply contoured theta waves seen over the left mid-temporal head region, which I do not see as much on the right, but no spikes or sharp waves are noted. I would put this as a mild asymmetry which is not always constituted throughout the recording. No spikes are noted. No other hemisphere asymmetries are noted. Photic stimulation is performed without significant posterior driving. Right at the end of photic stimulation it picks up into more beta rhythms and there is an asymmetry there, a little bit more prominent over the left hemisphere than the right. IMPRESSION: Some slight asymmetries with some focal waves on the left side and then, as the rhythm picks up right at the end of the recording, that is a little bit better seen on the left than the right. Some beta rhythms. A left hemisphere lesion could be ruled out. No definite seizure activity was seen. MD LANIE Funes/LILLIAN , 07:06 PM , 07:17 PM
[2017-12-17] VITALS (35 sets, daily range): BP systolic 111–140; BP diastolic 61–80; PULSE 74–87; RESP 12–23; TEMP 98.1–99.2; O2SAT 95–99
[2017-12-17] MEDS: HEPARIN SODIUM - SQ 10,000 UNITS/ML VIAL SQ SCH ×3 (01:13→17:30)
[2017-12-17] MEDS: CHLORHEXIDINE GLUCONATE 2 % 1 PACK (2 CLOTHS) TOP SCH (04:00)
[2017-12-17] MEDS: INSULIN ASPART SUPPLEMENTAL SCALE SQ SCH ×6 (04:00→20:00)
[2017-12-17 06:19] LABS: AUTOMATED NEUTROPHIL # 6.9 TH/MM3 (1.8-7.7); BASOPHIL # 0.1 TH/MM3 (0-0.2); BASOPHIL % 0.9 % (0.0-2.0); EOSINOPHIL # 0.1 TH/MM3 (0-0.4); EOSINOPHIL % 1.5 % (0.0-4.0); HEMATOCRIT 28.7 % (35.0-46.0); HEMOGLOBIN 9.8 GM/DL (11.6-15.3); LYMPH % 11.9 % (9.0-44.0); LYMPHOCYTE # 1.1 TH/MM3 (1.0-4.8); MEAN CELL VOLUME 98.1 FL (80.0-100.0); MEAN CORPUSCULAR HEMOGLOBIN 33.5 PG (27.0-34.0); MEAN CORPUSCULAR HGB CONC 34.1 % (32.0-36.0); MEAN PLATELET VOLUME 9.3 FL (7.0-11.0); MONOCYTE # 0.9 TH/MM3 (0-0.9); NEUT % 75.7 % (16.0-70.0); PLATELET COUNT 530 TH/MM3 (150-450); RED BLOOD COUNT 2.93 MIL/MM3 (4.00-5.30); RED CELL DISTRIBUTION WIDTH 15.4 % (11.6-17.2); WHITE BLOOD COUNT 9.1 TH/MM3 (4.0-11.0)
[2017-12-17 06:20] LABS: PROTHROMBIN TIME - PATIENT 10.5 SEC (9.8-11.6)
[2017-12-17 07:06] LABS: ALBUMIN 2.1 GM/DL (3.4-5.0); AST (GOT) 114 U/L (15-37); BICARBONATE 24.3 MEQ/L (21.0-32.0); BLOOD UREA NITROGEN 15 MG/DL (7-18); CALCIUM 8.2 MG/DL (8.5-10.1); CHLORIDE 103 MEQ/L (98-107); CREATININE 0.59 MG/DL (0.50-1.00); GLOMERULAR FILTRATION RATE 103 ML/MIN (>89); GLUCOSE,RANDOM 137 MG/DL (74-106); SODIUM (NA) 138 MEQ/L (136-145)
[2017-12-17 07:29] LABS: ALKALINE PHOSPHATASE 1025 U/L (45-117); ALT (GPT) 206 U/L (10-53); TOTAL BILIRUBIN ADULT 0.2 MG/DL (0.2-1.0); TOTAL PROTEIN 6.4 GM/DL (6.4-8.2)
--- NOTE | 2017-12-17 08:16 | HHI.CCPN ---
Subjective Remarks/Hospital Course This is a 51-year-old female. Date of admission 11/28/2017. Past medical history includes diabetes mellitus type 1 uncontrolled insulin- dependent with retinopathy on home insulin pump, hypertension, allergic rhinitis and chronic benzodiazepine use. She also has history of breast cancer on raloxifene she originally presented to [facility] ED During the workup, patient was noted to have a blood sugar of 808. Elevated acetone. Sodium 135. Potassium 6.0. Ferritin 2.1. Leukocytosis 25,000. Macrocytic anemia. UA negative for infectious etiology. She was bolused with 3 L of 0.9% NaCl IV fluid bolus. She is received 3 ampules of sodium bicarbonate and 1 g calcium gluconate. Chest x-ray post procedure revealed the CT scan of the head is read by the radiologist as ventriculomegaly but otherwise no acute findings. 11/29: Patient had nonrebreather off all night. PTX now 8 mm. Yells "Help me " "I don't know" Gap has closed, will transition back to SQ insulin if able to pass swallow. Replacing lytes. 11/30: Patient opens eyes to voice. Leftward gaze. Frequent blinking. Withdraws to stimulation bilateral lower extremities. T-max 99.5. Remains on norepinephrine and phenylephrine drips. MRI brain revealed ventriculomegaly. No acute signs of CVA. Echocardiogram EF 40%. 12/01: Afebrile. Patient remains off sedation approximately 24 hours nonresponsive. EEG in process. BAL revealed gram-negative rods the patient continues on Zosyn. The patient remains on vasopressors norepinephrine, vasopressin, and phenylephrine. Versed infusion restarted secondary to seizure activity noted on repeat EEG this a.m.. 12/02: Afebrile. The patient is scheduled for lumbar puncture this a.m., INR 1.0 patient has been off subcu heparin approximately 3 days. The patient continues on Versed and fentanyl infusions to maintain ventilator synchrony and avoidance of subclinical seizures which were noted on the EEG yesterday. The patient continues on multiple vasopressors to include norepinephrine and phenylephrine and vasopressin. Vasopressin currently being weaned off. The patient continues to have persistent leukocytosis though it is slightly downtrending plan for ID consult today appreciate recommendations. Bronchial washings resulted E. coli, currently patient continues on Zosyn. Patient was noted to have a positive fluid balance yesterday the patient received 20 mg of Lasix with adequate diuresis the patient noted to have a sodium level slightly decreased at 135 IV fluids mixed in 0.9 normal saline. 12/03: No acute events overnight lumbar puncture performed yesterday results pending. Dilantin level therapeutic. Phenobarbital level pending. Patient off vasopressin 24 hours. Phenylephrine currently being weaned off. Patient noted to be anemic 1 unit packed cells will be transfused today no pneumothorax chest tube now placed to waterseal today. 12/04: T-max 99.4. Repeat EEG performed today. Patient now withdrawing to pain 4 extremities, and open eyes to painful stimulus. Patient noted to move bilateral lower extremities 1 this shift. Patient tolerating tube feeds, overbreathing vent will begin CPAP trials in the a.m. if clinically stable. Phenylephrine completely discontinued overnight. Norepinephrine has been decreased to 3 mics/min. hemoglobin stable. 12/05: Afebrile. Patient was weaned off of norepinephrine last p.m.. The patient has been off sedation for greater than 48 hours, no change in neurological status opens eyes to deep stimulation, moves extremities 4 withdrawing to painful stimuli. CPAP trials initiated this a.m. the patient tolerated CPAP for approximately 6.5 hours. Chest x-ray remains unchanged no pneumo thorax, plan for removal of chest tube this evening. 12/06 No events overnight. On no sedation. Afebrile. unresponsive s/p removal chest tube yesterday.. 12/07 versed drip off since 12/04.. Eyes open to noxious stimuli, spontaneously moved R hand, withdraws x4. Temp max 99.3. WBC 11.2 today. Remains off pressors. On CPAP 05/23 and tolerating Subjective: 12/08. Temp max 100.4 overnight. Blood, urine, sputum cultures were sent. White blood cell count 13 this morning. Blood pressure was down to 84/46 with map of 56 this morning. Diuresed nearly 4 L yesterday with Lasix 40 IV q12, creatinine increased today. Tolerating tube feeds. Liquid stool x3 overnight. Apneic during multiple attempts at CPAP this morning. No neuro change. EEG bilateral slowing. Bihemispheric abnormalities. No epileptiform features 12/09: Remains encephalopathic, orally intubated on mechanical ventilation. Tolerating tube feeds. Not on any sedation. 12/10: Remains encephalopathic, orally intubated on mechanical ventilation. Tolerating tube feeds. Minimal eye opening with painful stimuli however extremely poor gag response. 12/11: Remains encephalopathic, orally intubated on mechanical ventilation. Tolerating tube feeds. Awaiting MRI/ EEG. 12/12: Remains encephalopathic, orally intubated on mechanical ventilation. No significant improvement in neurologic status noted. Tolerating tube feeds. EEG very abnormal more on the right. MRI brain done yesterday with high parietal lobe ischemic changes however CTA with no major vessel stenosis or aneurysm. 12/13 No events overnight. Remains intubated unresponsive. Afebrile. On no drips. 12/14: Remains encephalopathic, orally intubated on mechanical ventilation. 12/15:The patient tolerated CPAP trials for approximately 6 hours yesterday. The patient still remains encephalopathic. Tentative plan for possible PEG placement and tracheostomy, pending family decision. 12/16 Patient was transferred from PO yesterday for trach and PEG tube placement today. Afebrile. 12/17 Patient s/p trach and PEG tube placement yesterday. Afebrile. On no sedation. Objective Vital Signs Date Time Temp Pulse Resp B/P (MAP) Pulse Ox O2 Delivery O2 Flow Rate FiO2 12/17/17 07:56 99 35 12/17/17 06:00 80 12/17/17 04:00 98.9 13 130/67 (88) 12/15/17 19:00 Mechanical Ventilator Intake and Output 12/17/17 12/17/17 12/18/17 08:00 16:00 00:00 Intake Total 188 ml Output Total 575 ml Balance -387 ml Result Diagram: 12/17/17 0522 12/17/17 0522 Other Results Laboratory Tests Test 12/16/17 14:18 12/17/17 05:22 Prothrombin Time 10.1 SEC 10.5 SEC Prothromb Time International Ratio 1.0 RATIO 1.0 RATIO White Blood Count 9.1 TH/MM3 Red Blood Count 2.93 MIL/MM3 Hemoglobin 9.8 GM/DL Hematocrit 28.7 % Mean Corpuscular Volume 98.1 FL Mean Corpuscular Hemoglobin 33.5 PG Mean Corpuscular Hemoglobin Concent 34.1 % Red Cell Distribution Width 15.4 % Platelet Count 530 TH/MM3 Mean Platelet Volume 9.3 FL Neutrophils (%) (Auto) 75.7 % Lymphocytes (%) (Auto) 11.9 % Monocytes (%) (Auto) 10.0 % Eosinophils (%) (Auto) 1.5 % Basophils (%) (Auto) 0.9 % Neutrophils # (Auto) 6.9 TH/MM3 Lymphocytes # (Auto) 1.1 TH/MM3 Monocytes # (Auto) 0.9 TH/MM3 Eosinophils # (Auto) 0.1 TH/MM3 Basophils # (Auto) 0.1 TH/MM3 CBC Comment DIFF FINAL Differential Comment Blood Urea Nitrogen 15 MG/DL Creatinine 0.59 MG/DL Random Glucose 137 MG/DL Total Protein 6.4 GM/DL Albumin 2.1 GM/DL Calcium Level 8.2 MG/DL Phosphorus Level 3.0 MG/DL Magnesium Level 2.0 MG/DL Alkaline Phosphatase 1025 U/L Aspartate Amino Transf (AST/SGOT) 114 U/L Alanine Aminotransferase (ALT/SGPT) 206 U/L Total Bilirubin 0.2 MG/DL Sodium Level 138 MEQ/L Potassium Level 4.7 MEQ/L Chloride Level 103 MEQ/L Carbon Dioxide Level 24.3 MEQ/L Anion Gap 11 MEQ/L Estimat Glomerular Filtration Rate 103 ML/MIN Imaging Last Impressions Abdomen/Pelvis CT 12/17/17 0000 Signed Impressions: Service Date/Time: Sunday, December 17, 2017 15:44 - CONCLUSION: 1. There is a trace amount of free air in the upper abdomen anterior to left lobe of the liver and adjacent to the stomach. While nonspecific, this could be related to the G-tube. Suggest correlating with the clinical examination for signs of acute abdomen which would indicate a more concerning cause. 2. Moderately distended ascending and transverse colon. However, no anatomic obstruction is visualized. 3. Signs of fluid overload including bilateral pleural effusions, anasarca, periportal edema, and small volume of free fluid in the abdomen and pelvis. Uziel Troy MD Chest X-Ray 12/16/17 0600 Signed Impressions: Service Date/Time: Saturday, December 16, 2017 04:05 - CONCLUSION: 1. Stable left basilar consolidation/effusion. Possible posterior layering effusion on the right, unchanged. 2. Stable position of life support tubes Dani Titus MD Upper Extremity Ultrasound 12/15/17 0000 Signed Impressions: Service Date/Time: Friday, December 15, 2017 13:57 - CONCLUSION: Nonocclusive thrombus within left internal jugular vein. The remaining venous structures in the left upper extremity appear patent. Uziel Thomas MD Liver Ultrasound 12/12/17 0000 Signed Impressions: Service Date/Time: November 13:20 - CONCLUSION: 1. Marked gallbladder wall thickening with minimal pericholecystic fluid. No stones or sludge. 2. Small bilateral pleural effusions. Dani Titus MD Neck CTA 12/11/17 0000 Signed Impressions: Service Date/Time: Monday, December 11, 2017 23:08 - CONCLUSION: No carotid stenosis. Ac Davis MD Head CTA 12/11/17 0000 Signed Impressions: Service Date/Time: Monday, December 11, 2017 23:08 - CONCLUSION: 1. No large vessel stenosis or aneurysm. Ac Davis MD Brain MRI 12/11/17 0000 Signed Impressions: Service Date/Time: Monday, December 11, 2017 11:12 - CONCLUSION: 1. Faint diffusion restriction predominately along the high right parietal convexity with minimal diffusion restriction on the left. Pattern is somewhat unusual for anoxia with the asymmetry. Possible embolic event. CTA of the cervical and intracranial vessels to be performed for further characterization. 2. Chronic changes with some periventricular small vessel ischemic demyelination. 3. Mild ventricular prominence. In the appropriate clinical setting, findings could represent normal pressure hydrocephalus. 4. Bilateral mastoiditis. Mild chronic sinus disease in the sphenoid bilaterally. Dani Titus MD Gall Bladder Ultrasound 12/03/17 0000 Signed Impressions: Service Date/Time: Sunday, December 03, 2017 07:59 - CONCLUSION: 1. Ascites and bilateral pleural effusions. 2. Mildly distended gallbladder without evidence of wall thickening or cholelithiasis. 3. Otherwise unremarkable exam. Boo Cartwright MD Lumbar Puncture Fluoroscopy 12/02/17 0000 Signed Impressions: Service Date/Time: Saturday, December 02, 2017 15:28 - CONCLUSION: Uncomplicated fluoroscopically guided lumbar puncture. Aly Leigh MD Renal Ultrasound 11/29/17 2366 Signed Impressions: Service Date/Time: Wednesday, November 29, 2017 13:16 - CONCLUSION: 1. Both kidneys are sonographically normal without hydronephrosis or nephrolithiasis. 2. Very abnormal appearance of the gallbladder with mural thickening and minimal pericholecystic fluid Dani Titus MD Head CT 11/28/17 0000 Signed Impressions: Service Date/Time: , November 28, 2017 15:46 - CONCLUSION: 1. Ventriculomegaly suggesting central cerebral atrophy versus hydrocephalus. Clinical correlation is recommended. 2. No acute infarct, acute hemorrhage, midline shift or extra-axial fluid collections. Dev Christopher MD Procedures 12/02- lumbar puncture Objective Remarks GENERAL: 61-year-old female critically ill currently orotracheally intubated SKIN: Warm and dry. No rash HEAD: Atraumatic. Normocephalic. EYES: Gaze conjugate. Pupils equal and round about 4 mm and reactive to 2 mm bilaterally. No scleral icterus. No injection. Scleral edema improved. ENT: No nasal bleeding or discharge. Mucous membranes pink and moist NECK: Trachea midline. No JVD. CARDIOVASCULAR: RRR. . No murmur RESPIRATORY: Orally intubated on mechanical ventilation, good air entry bilaterally, no wheezing or crackles GASTROINTESTINAL: NGT L nare with tube feeds running. Abdomen soft, non-tender, nondistended. Bowel sounds present. MUSCULOSKELETAL: Edema improved, ~ 1+ of hands and ble. NEUROLOGICAL: Pupils reactive as per above + cough + gag. Eyes open to deep central noxious stimuli. Withdraws with all extremities. Date of Insertion: Nov 28, 2017 Line: Central Venous Catheter Side: Left Location: Internal, Jugular A/P Assessment and Plan Neuro/Psych: Acute encephalopathy secondary to diabetic ketoacidosis Anxiety disorder NOS Benzodiazepine use Off sedation since 12/04. Neurology Dr. Neville Acetaminophen 650 mg by tube every 6 hours as needed fever CT brain 11/28 revealed Ventriculomegaly suggesting central cerebral atrophy versus hydrocephalus. Clinical correlation is recommended. No acute infarct, acute hemorrhage, midline shift or extra-axial fluid collections. UDS negative MRI brain 11/29 revealed mild to moderate ventriculomegaly. EEG - 12/07 bihemispheric slowing. No epileptiform features. EEG 11/28- bihemispheric slowing with some left frontocentral sharp waves and phase reversal suggesting an epileptiform abnormality and possible structural lesion in this region. No ictal pattern present. Neurology -Dr. Garewal, on Cerebyx 200mg Q12. 12/02 Ophthalmology -no eye infection Lacri-Lube applied for scleral edema 12/02-lumbar puncture-negative. CSF HSV negative 12/03-cortisol level 17 ammonia level 22 12/11 EEG consistent with a severe encephalopathy. There is more prominent slowing over the right hemisphere. MRI brain done on 12/11 with ischemic changes high left parietal lobe however CTA brain with no major vessel stenosis or aneurysm. . CV: History of hypertension Shock, resolved Elevated troponin Acute systolic heart failure ejection fraction 40% NSTEMI cardiomyopathy Monitor HR and BP keep MAP>65mmHg Atorvastatin 10 mg by tube daily on hold for elevated LFT's Continue aspirin 81 mg by tube daily 2D echocardiogram revealed EF around 40%. LV increased size. Septal hypokinesis. 12/03- Cardiology has signed off Resp: Acute hypoxemic respiratory failure Hemoptysis-resolved Tobacco abuse/ongoing Iatrogenic PTX status post chest tube placement PRVC12 /450/1//40, Ventilator bundle. s/p trach on 12/16 Albuterol/ipratropium aerosols every 6 hours with albuterol aerosols every 2 hours as needed dyspnea 12/03 Right chest tube in placed to waterseal 11/29 Status post chest tube placement see documentation, removed 12/05. Status post bronchoscopy 11/29. GI: Moderate protein energy malnutrition Elevated LFT's Resume tube feeds- Glucerna 1.5 with goal rate to 40 mL/h per nutrition recommendations famotidine for GI prophylaxis s/p PEG tube placement 12/16 Docusate sodium/senna 1 tablet twice daily for bowel regimen 12/17 CT abdomen/pelvis from today showed trace amount of free air in the upper abdomen anterior to left lobe of the liver and adjacent to the stomach. this could be related to the G-tube. Moderately distended ascending and transverse colon. No obstruction. 12/12 US Liver: Marked gallbladder wall thickening with minimal pericholecystic fluid. No stones or sludge. Small bilateral pleural effusions. 12/03 gallbladder ultrasound -gallbladder mildly distended without evidence of wall thickening or cholelithiasis. There is ascites and pleural effusions. GI eval noted. Continue multivitamin/thiamine. thiamine via og FEN/RENAL: BRIELLE- resolved Hyponatremia Monitor renal function, I/O's, electrolytes replacement per protocol. on NS@84ml/hr Renal ultrasound revealed no medical renal disease. Endo: Insulin-dependent diabetes mellitus type 1 uncontrolled Diabetic ketoacidosis - resolved Originally, patient received 3 L normal saline in the ED along with 3 refills and bicarbonate, 1 ampule of calcium gluconate. Beta hydroxybutyrate cleared 11/29 Insulin pump was disconnected 11/28. According to sister Evelyn Obrien, patient had received a new insulin pump within the past 48 hours [employer]. She has no history of DKA in the past to her knowledge TSH 0.38 Continue SSI Novulog medium protocol with accucheck every 4 hours maintain euglycemia Levemir 7 q12 Heme: Leukocytosis- Resolved Macrocytic anemia Monitor CBC daily. 12/03 transfused 1 unit of packed red blood cells ID: Community-acquired versus aspiration BC x2, UA (-) inf A/B negative 11/29 S/P bronchoscopy with sample sent from left lower lobe 11/29 Sputum (BAL)-E.coli, pansensitive ID is following, Dr. Childs On Rocephin/ oral fluconazole Vancomycin has been discontinued 12/06 per ID 12/02-lumbar puncture-negative Access PIV in place Prophylaxis -GI -famotidine for stress ulcer prophylaxis -DVT -SCD/continue heparin SQ Doppler US UE: Non-occlusive thrombus left IJ vein Palliative care is following Level 3 Edouard Mayo MD December 17, 2017 08:16
[2017-12-17] MEDS: FOSPHENYTOIN SODIUM 100 MG PE/2 ML VIAL IV SCH ×2 (09:00→22:37)
[2017-12-17] MEDS: ARTIFICIAL TEARS OPTH OINT 3.5 APPLIC/3.5 GM TUBO EACH EYE SCH ×4 (09:12→21:00)
[2017-12-17] MEDS: ASPIRIN 81 MG CHEW TAB CHEW SCH (09:13)
[2017-12-17] MEDS: MULTIVITAMIN TAB PO SCH (09:13)
[2017-12-17] MEDS: FLUCONAZOLE 200 MG TAB PO SCH (09:13)
[2017-12-17] MEDS: THIAMINE HCL 100 MG TAB OG-TUBE SCH (09:13)
[2017-12-17] MEDS: FAMOTIDINE 20 MG TAB NG SCH ×2 (09:13→22:37)
[2017-12-17] MEDS: SODIUM CHLORIDE 0.9% FLUSH 10 ML FLUSH IV FLUSH SCH ×3 (09:13→22:37)
[2017-12-17] MEDS: CHLORHEXIDINE 0.12% (ORAL KIT) 15 ML CUP MT SCH ×2 (09:14→22:39)
[2017-12-17] MEDS: INSULIN DETEMIR 100 UNITS/ML VIAL SQ SCH ×2 (09:14→22:37)
[2017-12-17] MEDS: SODIUM CHLOR 0.9% 1000 ML INJ 1,000 ML IV SCH ×2 (09:38→22:40)
--- NOTE | 2017-12-17 11:18 | HHI.GIFU ---
Subjective Remarks Pt resting in bed. s/p trach. s/p peg. (Lanette Spears [employer]) Objective Vitals I&O Vital Signs Date Time Temp Pulse Resp B/P (MAP) Pulse Ox O2 Delivery O2 Flow Rate FiO2 12/17/17 10:17 97 35 12/17/17 09:30 80 13 121/68 (85) 97 12/17/17 09:15 74 13 124/65 (84) 98 12/17/17 09:15 35 12/17/17 09:00 77 12/17/17 09:00 77 12 133/69 (90) 98 12/17/17 08:55 98 35 12/17/17 08:55 35 12/17/17 08:45 81 12 128/67 (87) 97 12/17/17 08:30 84 13 132/67 (88) 97 12/17/17 08:15 80 12 122/65 (84) 97 12/17/17 08:00 82 12/17/17 08:00 99.2 82 14 122/67 (85) 98 12/17/17 07:56 99 35 12/17/17 07:45 76 12 123/65 (84) 98 12/17/17 07:30 83 12 125/63 (83) 97 12/17/17 07:15 75 12 128/65 (86) 98 12/17/17 07:00 84 12/17/17 07:00 84 13 129/67 (87) 98 12/17/17 06:53 98 35 12/17/17 06:00 80 12/17/17 04:00 35 12/17/17 04:00 98.9 85 13 130/67 (88) 96 12/17/17 04:00 85 12/17/17 02:04 97 35 12/17/17 02:00 82 12/17/17 00:00 98.7 74 12 137/66 (89) 99 12/17/17 00:00 74 12/17/17 00:00 35 12/16/17 22:00 91 12/16/17 20:00 74 12/16/17 20:00 98.7 74 12 144/73 (96) 98 12/16/17 20:00 35 12/16/17 19:25 97 35 12/16/17 18:00 75 12/16/17 17:00 79 12/16/17 17:00 79 13 143/71 (95) 98 12/16/17 16:30 81 13 135/73 (93) 96 12/16/17 16:07 98 35 12/16/17 16:00 35 12/16/17 16:00 97.5 75 18 151/77 (101) 98 12/16/17 16:00 75 12/16/17 15:00 67 18 163/73 (103) 100 12/16/17 15:00 67 12/16/17 14:00 68 12/16/17 14:00 68 36 131/70 (90) 97 12/16/17 13:00 96 100 12/16/17 13:00 76 24 100/74 (83) 98 12/16/17 13:00 74 12/16/17 12:10 93 35 12/16/17 12:00 98.5 79 19 135/67 (89) 96 12/16/17 12:00 35 12/16/17 12:00 79 I/O 12/16/17 12/16/17 12/16/17 12/17/17 12/17/17 12/17/17 07:00 15:00 23:00 07:00 15:00 23:00 Intake Total 456 ml 200 ml 1220 ml 188 ml Output Total 1000 ml 600 ml 575 ml Balance -544 ml 200 ml 620 ml -387 ml IV Total 1100 ml 68 ml Tube Feeding 206 ml 0 ml Other 250 ml 200 ml 120 ml 120 ml Output Urine Total 1000 ml 600 ml 575 ml # Bowel Movements 1 1 1 Laboratory Laboratory Tests Test 12/16/17 14:18 12/17/17 05:22 Prothrombin Time 10.1 10.5 Prothromb Time International Ratio 1.0 1.0 White Blood Count 9.1 Red Blood Count 2.93 Hemoglobin 9.8 Hematocrit 28.7 Mean Corpuscular Volume 98.1 Mean Corpuscular Hemoglobin 33.5 Mean Corpuscular Hemoglobin Concent 34.1 Red Cell Distribution Width 15.4 Platelet Count 530 Mean Platelet Volume 9.3 Neutrophils (%) (Auto) 75.7 Lymphocytes (%) (Auto) 11.9 Monocytes (%) (Auto) 10.0 Eosinophils (%) (Auto) 1.5 Basophils (%) (Auto) 0.9 Neutrophils # (Auto) 6.9 Lymphocytes # (Auto) 1.1 Monocytes # (Auto) 0.9 Eosinophils # (Auto) 0.1 Basophils # (Auto) 0.1 CBC Comment DIFF FINAL Differential Comment Blood Urea Nitrogen 15 Creatinine 0.59 Random Glucose 137 Total Protein 6.4 Albumin 2.1 Calcium Level 8.2 Phosphorus Level 3.0 Magnesium Level 2.0 Alkaline Phosphatase 1025 Aspartate Amino Transf (AST/SGOT) 114 Alanine Aminotransferase (ALT/SGPT) 206 Total Bilirubin 0.2 Sodium Level 138 Potassium Level 4.7 Chloride Level 103 Carbon Dioxide Level 24.3 Anion Gap 11 Estimat Glomerular Filtration Rate 103 Date/Time Source Procedure Growth Status 12/08/17 06:13 Blood Peripheral Aerobic Blood Culture - Final NO GROWTH IN 5 DAYS Complete 12/08/17 06:13 Blood Peripheral Anaerobic Blood Culture - Final NO GROWTH IN 5 DAYS Complete 12/02/17 15:29 Cerebral Spinal Fluid Lumbar Puncture Gram Stain - Final Complete 12/02/17 15:29 Cerebral Spinal Fluid Lumbar Puncture CSF Culture - Final NO GROWTH IN 72 HOURS Complete 12/08/17 06:00 Sputum Nasal Tracheal Aspirate Gram Stain - Final Complete 12/08/17 06:00 Sputum Culture - Final Escherichia Coli Complete 12/08/17 06:09 Urine Catheterized Urine Urine Culture - Final Anna Glabrata Complete Imaging Last Impressions Chest X-Ray 12/16/17 0600 Signed Impressions: Service Date/Time: Saturday, December 16, 2017 04:05 - CONCLUSION: 1. Stable left basilar consolidation/effusion. Possible posterior layering effusion on the right, unchanged. 2. Stable position of life support tubes aDni Titus MD Upper Extremity Ultrasound 12/15/17 0000 Signed Impressions: Service Date/Time: Friday, December 15, 2017 13:57 - CONCLUSION: Nonocclusive thrombus within left internal jugular vein. The remaining venous structures in the left upper extremity appear patent. Uziel Thomas MD Liver Ultrasound 12/12/17 0000 Signed Impressions: Service Date/Time: November 13:20 - CONCLUSION: 1. Marked gallbladder wall thickening with minimal pericholecystic fluid. No stones or sludge. 2. Small bilateral pleural effusions. Dani Titus MD Neck CTA 12/11/17 0000 Signed Impressions: Service Date/Time: Monday, December 11, 2017 23:08 - CONCLUSION: No carotid stenosis. Ac Davis MD Head CTA 12/11/17 0000 Signed Impressions: Service Date/Time: Monday, December 11, 2017 23:08 - CONCLUSION: 1. No large vessel stenosis or aneurysm. Ac Davis MD Brain MRI 12/11/17 0000 Signed Impressions: Service Date/Time: Monday, December 11, 2017 11:12 - CONCLUSION: 1. Faint diffusion restriction predominately along the high right parietal convexity with minimal diffusion restriction on the left. Pattern is somewhat unusual for anoxia with the asymmetry. Possible embolic event. CTA of the cervical and intracranial vessels to be performed for further characterization. 2. Chronic changes with some periventricular small vessel ischemic demyelination. 3. Mild ventricular prominence. In the appropriate clinical setting, findings could represent normal pressure hydrocephalus. 4. Bilateral mastoiditis. Mild chronic sinus disease in the sphenoid bilaterally. Dani Titus MD Gall Bladder Ultrasound 12/03/17 0000 Signed Impressions: Service Date/Time: Sunday, December 03, 2017 07:59 - CONCLUSION: 1. Ascites and bilateral pleural effusions. 2. Mildly distended gallbladder without evidence of wall thickening or cholelithiasis. 3. Otherwise unremarkable exam. Boo Cartwright MD Lumbar Puncture Fluoroscopy 12/02/17 0000 Signed Impressions: Service Date/Time: Saturday, December 02, 2017 15:28 - CONCLUSION: Uncomplicated fluoroscopically guided lumbar puncture. Aly Leigh MD Renal Ultrasound 11/29/17 1656 Signed Impressions: Service Date/Time: Wednesday, November 29, 2017 13:16 - CONCLUSION: 1. Both kidneys are sonographically normal without hydronephrosis or nephrolithiasis. 2. Very abnormal appearance of the gallbladder with mural thickening and minimal pericholecystic fluid Dani Titus MD Head CT 11/28/17 0000 Signed Impressions: Service Date/Time: November 15:46 - CONCLUSION: 1. Ventriculomegaly suggesting central cerebral atrophy versus hydrocephalus. Clinical correlation is recommended. 2. No acute infarct, acute hemorrhage, midline shift or extra-axial fluid collections. Dev Christopher MD Physical Exam HEENT:PERRL . intubated CHEST : coarse CARDIAC: RRR ABDOMEN: Soft, nondistended, nontender; no hepatosplenomegaly; bowel sounds are present in all four quadrants. PEG site clean EXTREMITIES: No clubbing, cyanosis, trace edema. SKIN: Normal; no rash; no jaundice. 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 (Lanette Spears) Assessment and Plan Plan Elevated liver function tests, improving slowly, most likely cholecystitis antibiotic, or it could be medication related, Overall guarded prognosis Continue monitoring LFTs 12/15/2017 no significant change, liver function tests are more elevated, most likely cholecystitis or medication related, will continue monitoring If family decided to have PEG tube this can be done tomorrow 12/16/2017 liver function tests slightly improved today, PEG tube was placed IMPRESSION: Mild to moderate duodenitis otherwise normal upper endoscopy PEG tube was placed in the left upper quadrant, 20 Italian 1 g of Ancef was given during the procedure PLAN: - ok to restart TF - TF per nutrition - supportive care GI will sign off, please reconsult if needed pt seen by myself and Dr Love and this note is on his behalf (Lanette Spears) Plan Patient was seen and examined, PEG tube in good position, still have elevated liver function tests, we will monitor tomorrow to make sure that it is coming down, patient starting to move extremities which is new development for her (Verenice Love MD) Lanette Spears December 17, 2017 11:18 Verenice Love MD December 17, 2017 19:56
--- NOTE | 2017-12-17 11:52 | HHI.PR ---
Review/Management Diagnosis/Plan: (1) Seizure cerebral ICD Codes: I67.89 - Other cerebrovascular disease Status: Acute Plan: likely metabolic sz's severe metabolic encephalopathy 12/04 eeg reviewed csf negative. hsv pcr negative wbc 6, protein 32 recs d/c acyclovir d/c keppra continue dilantin/phb EEG 12/11 did not show seizure activity (2) Encephalopathy, metabolic ICD Codes: G93.41 - Metabolic encephalopathy Status: Acute Plan: 2/2 dka, renal failure, post-sz activity (3) DKA (diabetic ketoacidoses) ICD Codes: E13.10 - Other specified diabetes mellitus with ketoacidosis without coma Status: Acute Plan: per ccm (4) Acute renal failure ICD Codes: N17.9 - Acute kidney failure, unspecified Status: Acute Plan: hydration/per ccm (Shae Manzanares) Diagnosis/Plan: (1) Seizure cerebral ICD Codes: I67.89 - Other cerebrovascular disease Status: Acute Plan: likely metabolic sz's severe metabolic encephalopathy 12/04 eeg reviewed csf negative. hsv pcr negative wbc 6, protein 32 recs f/u eeg 12/16 no sz activity mri brain with rt high cortical lesions>left. suggestive of hypoxic/hypotensive event d/w pt's son on phone last will need LTC and family will re-eval pt over next 1-2 months and make decision regarding hospice; as per my last discussion with him (Brijesh Neville MD) Subjective Subjective Comments Pt s/p trach and peg. On CPAP. Per nurse pt will occasionally open eyes to command. Will also squeeze hand on the right. No seizure activity. Active Medications Current Medications Medications (Trade) Dose Ordered Sig/Kenna Route Start Time Stop Time Status Last Admin (NS Flush) 2 ml UNSCH PRN IV FLUSH 11/28/17 16:00 (NS Flush) 2 ml BID IV FLUSH 11/28/17 21:00 12/17/17 09:13 (Albuterol Neb) 2.5 mg Q2HR NEB PRN INH 11/28/17 16:00 12/13/17 02:48 (Milk Of Magnesia Liq) 30 ml Q12H PRN PO 11/28/17 16:00 (Senokot) 17.2 mg Q12H PRN PO 11/28/17 16:00 (Dulcolax Supp) 10 mg DAILY PRN RECTAL 11/28/17 16:00 (Lactulose Liq) 30 ml DAILY PRN PO 11/28/17 16:00 (Zofran Inj) 4 mg Q6H PRN IV PUSH 11/28/17 16:15 (Heparin Inj) 5,000 units Q8H SQ 11/28/17 18:00 Future hold 12/17/17 09:38 Miscellaneous Information 1 Q361D XX 11/28/17 16:15 11/28/17 16:15 (Chlorhexidine 2% Cloth) Taper DAILY@04 TOP 11/29/17 04:00 11/25/18 03:59 12/17/17 04:00 (Chlorhexidine 2% Cloth) 3 pack UNSCH PRN TOP 11/28/17 16:15 (Flonase Willem Spr) 1 spray BID EACH NARE 11/28/17 21:00 Future Hold (Theragran) 1 tab DAILY PO 11/29/17 09:00 12/17/17 09:13 (D50w (Vial) Inj) 50 ml UNSCH PRN IV PUSH 11/29/17 07:15 11/30/17 07:11 (Glucagon Inj) 1 mg UNSCH PRN OTHER 11/29/17 07:15 (Levemir Inj) 8 units BID SQ 11/29/17 09:00 Future Hold 11/29/17 22:11 Potassium Chloride 100 ml @ 50 mls/hr Q2H PRN IV 11/29/17 07:15 Potassium Chloride 100 ml @ 50 mls/hr Q2H PRN IV 11/29/17 07:15 (K-Lyte Cl Eff) 50 meq UNSCH PRN PO 11/29/17 07:15 Potassium Chloride 100 ml @ 25 mls/hr UNSCH PRN IV 11/29/17 07:15 Potassium Chloride 100 ml @ 50 mls/hr Q2H PRN IV 11/29/17 07:15 Magnesium Sulfate 4 gm/Sodium Chloride 100 ml @ 50 mls/hr UNSCH PRN IV 11/29/17 07:15 (Mag-Ox) 800 mg UNSCH PRN PO 11/29/17 07:15 Magnesium Sulfate 2 gm/Sodium Chloride 100 ml @ 50 mls/hr UNSCH PRN IV 11/29/17 07:15 (K-Phos) 2,000 mg Q4H PRN PO 11/29/17 07:15 Sodium Phosphate 30 mmol/Sodium Chloride 250 ml @ 42 mls/hr UNSCH PRN IV 11/29/17 07:15 11/30/17 05:30 (K-Phos) 2,000 mg UNSCH PRN PO/TUBE 11/29/17 07:15 Potassium Phosphate 30 mmol/ Sodium Chloride 260 ml @ 42 mls/hr UNSCH PRN IV 11/29/17 07:15 12/01/17 12:05 (Peridex 0.12% Liq) 15 ml BID@08,20 MT 11/29/17 08:00 12/17/17 09:14 (Tylenol 650 Mg/ 20 ml Liq) 650 mg Q6H PRN NG 11/29/17 10:00 12/09/17 09:24 (Brethine Inj) 1 mg UNSCH PRN SQ 11/29/17 10:00 (NovoLOG SUPPLEMENTAL SCALE) 1 Q4HR SQ 11/29/17 12:00 12/16/17 10:02 (NS Flush) DAILY IV FLUSH 11/30/17 09:00 12/17/17 09:13 (NS Flush) UNSCH PRN IV FLUSH 11/29/17 11:15 (Aspirin Chew) 81 mg DAILY CHEW 11/30/17 09:00 12/17/17 09:13 (Lipitor) 10 mg HS PO 11/29/17 21:00 Future Hold 12/12/17 22:13 (Cerebyx Inj) 200 mgpe Q12HR IV 11/30/17 21:00 12/17/17 09:00 (Lacrilube Opht Oint) 1 applic QID EACH EYE 12/03/17 18:00 12/17/17 09:12 (Vitamin B1) 100 mg DAILY OG-TUBE 12/08/17 09:00 12/17/17 09:13 (Levemir Inj) 7 units Q12HR SQ 12/08/17 09:00 12/17/17 09:14 (Diflucan) 400 mg DAILY PO 12/12/17 09:00 12/17/17 09:13 (Pepcid) 20 mg BID NG 12/11/17 21:00 12/17/17 09:13 Ceftriaxone Sodium 2000 mg/ Sodium Chloride 100 ml @ 200 mls/hr Q24H IV 12/11/17 17:00 12/16/17 17:40 Sodium Chloride 1,000 ml @ 84 mls/hr [id number] IV 12/16/17 10:00 12/17/17 09:38 Allergies Allergies Coded Allergies No Known Allergies (Unverified Allergy, Unknown, 11/28/17) (Shae Manzanares) Review of Systems All other ROS: Unable to obtain (Shae Manzanares) Exam I&O / VS Vital Signs Date Time Temp Pulse Resp B/P (MAP) Pulse Ox O2 Delivery O2 Flow Rate FiO2 12/17/17 10:17 97 35 12/17/17 09:30 80 13 121/68 (85) 97 12/17/17 09:15 74 13 124/65 (84) 98 12/17/17 09:15 35 12/17/17 09:00 77 12/17/17 09:00 77 12 133/69 (90) 98 12/17/17 08:55 98 35 12/17/17 08:55 35 12/17/17 08:45 81 12 128/67 (87) 97 12/17/17 08:30 84 13 132/67 (88) 97 12/17/17 08:15 80 12 122/65 (84) 97 12/17/17 08:00 82 12/17/17 08:00 99.2 82 14 122/67 (85) 98 12/17/17 07:56 99 35 12/17/17 07:45 76 12 123/65 (84) 98 12/17/17 07:30 83 12 125/63 (83) 97 12/17/17 07:15 75 12 128/65 (86) 98 12/17/17 07:00 84 12/17/17 07:00 84 13 129/67 (87) 98 12/17/17 06:53 98 35 12/17/17 06:00 80 12/17/17 04:00 35 12/17/17 04:00 98.9 85 13 130/67 (88) 96 12/17/17 04:00 85 12/17/17 02:04 97 35 12/17/17 02:00 82 12/17/17 00:00 98.7 74 12 137/66 (89) 99 12/17/17 00:00 74 12/17/17 00:00 35 12/16/17 22:00 91 12/16/17 20:00 74 12/16/17 20:00 98.7 74 12 144/73 (96) 98 12/16/17 20:00 35 12/16/17 19:25 97 35 12/16/17 18:00 75 12/16/17 17:00 79 12/16/17 17:00 79 13 143/71 (95) 98 12/16/17 16:30 81 13 135/73 (93) 96 12/16/17 16:07 98 35 12/16/17 16:00 35 12/16/17 16:00 97.5 75 18 151/77 (101) 98 12/16/17 16:00 75 12/16/17 15:00 67 18 163/73 (103) 100 12/16/17 15:00 67 12/16/17 14:00 68 12/16/17 14:00 68 36 131/70 (90) 97 12/16/17 13:00 96 100 12/16/17 13:00 76 24 100/74 (83) 98 12/16/17 13:00 74 12/16/17 12:10 93 35 12/16/17 12:00 98.5 79 19 135/67 (89) 96 12/16/17 12:00 35 12/16/17 12:00 79 Exam Comments Pt nonverbal, has trach, on CPAP, PERRL, will squeeze right hand on command. does not squeeze on the left, withdraws from noxious stimuli in all extremities , does not open eyes to command, will open left eye to sternal rub (Shae Manzanares) Objective Micro and Labs Laboratory Tests Test 12/16/17 14:18 12/17/17 05:22 Prothrombin Time 10.1 10.5 Prothromb Time International Ratio 1.0 1.0 White Blood Count 9.1 Red Blood Count 2.93 Hemoglobin 9.8 Hematocrit 28.7 Mean Corpuscular Volume 98.1 Mean Corpuscular Hemoglobin 33.5 Mean Corpuscular Hemoglobin Concent 34.1 Red Cell Distribution Width 15.4 Platelet Count 530 Mean Platelet Volume 9.3 Neutrophils (%) (Auto) 75.7 Lymphocytes (%) (Auto) 11.9 Monocytes (%) (Auto) 10.0 Eosinophils (%) (Auto) 1.5 Basophils (%) (Auto) 0.9 Neutrophils # (Auto) 6.9 Lymphocytes # (Auto) 1.1 Monocytes # (Auto) 0.9 Eosinophils # (Auto) 0.1 Basophils # (Auto) 0.1 CBC Comment DIFF FINAL Differential Comment Blood Urea Nitrogen 15 Creatinine 0.59 Random Glucose 137 Total Protein 6.4 Albumin 2.1 Calcium Level 8.2 Phosphorus Level 3.0 Magnesium Level 2.0 Alkaline Phosphatase 1025 Aspartate Amino Transf (AST/SGOT) 114 Alanine Aminotransferase (ALT/SGPT) 206 Total Bilirubin 0.2 Sodium Level 138 Potassium Level 4.7 Chloride Level 103 Carbon Dioxide Level 24.3 Anion Gap 11 Estimat Glomerular Filtration Rate 103 Date/Time Source Procedure Growth Status 12/08/17 06:13 Blood Peripheral Aerobic Blood Culture - Final NO GROWTH IN 5 DAYS Complete 12/08/17 06:13 Blood Peripheral Anaerobic Blood Culture - Final NO GROWTH IN 5 DAYS Complete 12/02/17 15:29 Cerebral Spinal Fluid Lumbar Puncture Gram Stain - Final Complete 12/02/17 15:29 Cerebral Spinal Fluid Lumbar Puncture CSF Culture - Final NO GROWTH IN 72 HOURS Complete 12/08/17 06:00 Sputum Nasal Tracheal Aspirate Gram Stain - Final Complete 12/08/17 06:00 Sputum Culture - Final Escherichia Coli Complete 12/08/17 06:09 Urine Catheterized Urine Urine Culture - Final Anna Glabrata Complete (Shae Manzanares) Problem Qualifiers (1) DKA (diabetic ketoacidoses): Qualified Codes: E10.11 - Type 1 diabetes mellitus with ketoacidosis with coma (2) Acute renal failure: Qualified Codes: N17.9 - Acute kidney failure, unspecified Shae Manzanares December 17, 2017 11:52 Brijesh Neville MD December 17, 2017 17:27
[2017-12-17] MEDS ORDERED: DIATRIZOATE MEGLUM/DIATRIZOATE SOD 9 ML CUP PO ONE (13:00)
[2017-12-17] MEDS ORDERED: IOHEXOL 350 MG/ML 10 ML VIAL (for RAD DIAG) IVCONTRAST ONE (15:57)
--- NOTE | 2017-12-17 16:33 | RADRPT ---
EXAM DATE/TIME: 12/17/2017 15:44 [facility] COMPARISON: No previous studies available for comparison. INDICATIONS : Elevated liver function tests IV CONTRAST: 93 cc Omnipaque 350 (iohexol) IV ORAL CONTRAST: Prescribed oral contrast ingested. RADIATION DOSE: 11.75 CTDIvol (mGy) MEDICAL HISTORY : Diabetes mellitus type 1. SURGICAL HISTORY : None. ENCOUNTER: Initial ACUITY: 1 day PAIN SCALE: Non-responsive LOCATION: abdomen TECHNIQUE: Volumetric scanning of the abdomen and pelvis was performed. Using automated exposure control and ad justment of the mA and/or kV according to patient size, radiation dose was kept as low as reasonably achievable to obtain optimal diagnostic quality images. DICOM format image data is available electro nically for review and comparison. FINDINGS: LOWER LUNGS: There are moderate-sized bilateral pleural effusions with associated compressive atelectasis, left la rger than right. LIVER: No liver lesion is identified. There is. Portal edema. There is diffuse gallbladder wall edema. No ca lcified stones are present. There is no dilation of the biliary tree. SPLEEN: Normal size without lesion. PANCREAS: There a few punctate calcifications. No solid mass or duct dilatation is present. KIDNEYS: Normal in size and shape. There is no mass, stone or hydronephrosis. ADRENAL GLANDS: Within normal limits. VASCULAR: There is no aortic aneurysm. BOWEL/MESENTERY: There is a G-tube within the stomach. Trace amount of free intraperitoneal air is present in the uppe r abdomen anterior to the left lobe of the liver near the stomach. Small bowel demonstrates no abnorm ality. The ascending and transverse colon are moderately distended with air and fluid. There are no s igns of obstruction. Small volume of free fluid is present within the abdomen and pelvis. ABDOMINAL WALL: There is anasarca. RETROPERITONEUM: There is no lymphadenopathy. BLADDER: Decompressed with a Méndez catheter in place. REPRODUCTIVE: Within normal limits. INGUINAL: There is no lymphadenopathy or hernia. MUSCULOSKELETAL: There are degenerative changes of the lumbar spine but no acute osseous abnormality is seen. CONCLUSION: 1. There is a trace amount of free air in the upper abdomen anterior to left lobe of the liver and ad jacent to the stomach. While nonspecific, this could be related to the G-tube. Suggest correlating wi th the clinical examination for signs of acute abdomen which would indicate a more concerning cause. 2. Moderately distended ascending and transverse colon. However, no anatomic obstruction is visualize d. 3. Signs of fluid overload including bilateral pleural effusions, anasarca, periportal edema, and sma ll volume of free fluid in the abdomen and pelvis. Uziel Troy MD on December 17, 2017 at 16:23 Board Certified Radiologist. This report was verified electronically.
[2017-12-17] MEDS: cefTRIAXone INJ 2,000 MG in SODIUM CHLORIDE 0.9% INJ 100 ML IV SCH (17:30)
--- NOTE | 2017-12-17 18:24 | HHI.IDPN ---
Subjective Subjective Remarks pt remains severely encephalopathic, not waking up off sedation essentially unresponsive remains on vent afebrile BP stable Antibiotics fluconazol cefepime Lines cvl discontinued piv in each arm Allergies: Coded Allergies: No Known Allergies (Unverified Allergy, Unknown, 11/28/17) Objective . Vital Signs Date Time Temp Pulse Resp B/P (MAP) Pulse Ox O2 Delivery O2 Flow Rate FiO2 12/17/17 16:00 98.2 85 23 137/72 (93) 98 12/17/17 16:00 85 12/17/17 16:00 35 12/17/17 15:30 96 40 12/17/17 15:00 87 19 128/78 (95) 98 12/17/17 15:00 87 12/17/17 14:00 84 12/17/17 14:00 84 16 136/80 (98) 97 12/17/17 13:28 96 35 12/17/17 13:00 75 13 111/61 (78) 97 12/17/17 13:00 75 12/17/17 12:00 98.1 80 23 135/65 (88) 97 12/17/17 12:00 35 12/17/17 12:00 80 12/17/17 11:00 83 14 136/75 (95) 98 12/17/17 11:00 83 12/17/17 10:17 97 35 12/17/17 10:00 77 12/17/17 10:00 77 17 136/64 (88) 98 12/17/17 09:30 80 13 121/68 (85) 97 12/17/17 09:15 74 13 124/65 (84) 98 12/17/17 09:15 35 12/17/17 09:00 77 12/17/17 09:00 77 12 133/69 (90) 98 12/17/17 08:55 98 35 12/17/17 08:55 35 12/17/17 08:45 81 12 128/67 (87) 97 12/17/17 08:30 84 13 132/67 (88) 97 12/17/17 08:15 80 12 122/65 (84) 97 12/17/17 08:00 82 12/17/17 08:00 99.2 82 14 122/67 (85) 98 12/17/17 07:56 99 35 12/17/17 07:45 76 12 123/65 (84) 98 12/17/17 07:30 83 12 125/63 (83) 97 12/17/17 07:15 75 12 128/65 (86) 98 12/17/17 07:00 84 12/17/17 07:00 84 13 129/67 (87) 98 12/17/17 06:53 98 35 12/17/17 06:00 80 12/17/17 04:00 35 12/17/17 04:00 98.9 85 13 130/67 (88) 96 12/17/17 04:00 85 12/17/17 02:04 97 35 12/17/17 02:00 82 12/17/17 00:00 98.7 74 12 137/66 (89) 99 12/17/17 00:00 74 12/17/17 00:00 35 12/16/17 22:00 91 12/16/17 20:00 74 12/16/17 20:00 98.7 74 12 144/73 (96) 98 12/16/17 20:00 35 12/16/17 19:25 97 35 12/16/17 18:00 75 . Laboratory Tests Test 12/16/17 06:24 12/17/17 05:22 White Blood Count 9.5 TH/MM3 9.1 TH/MM3 Red Blood Count 2.83 MIL/MM3 2.93 MIL/MM3 Hemoglobin 9.5 GM/DL 9.8 GM/DL Hematocrit 27.6 % 28.7 % Mean Corpuscular Volume 97.7 FL 98.1 FL Mean Corpuscular Hemoglobin 33.7 PG 33.5 PG Mean Corpuscular Hemoglobin Concent 34.5 % 34.1 % Red Cell Distribution Width 15.1 % 15.4 % Platelet Count 559 TH/MM3 530 TH/MM3 Mean Platelet Volume 9.3 FL 9.3 FL Neutrophils (%) (Auto) 75.7 % Lymphocytes (%) (Auto) 11.9 % Monocytes (%) (Auto) 10.0 % Eosinophils (%) (Auto) 1.5 % Basophils (%) (Auto) 0.9 % Neutrophils # (Auto) 6.9 TH/MM3 Lymphocytes # (Auto) 1.1 TH/MM3 Monocytes # (Auto) 0.9 TH/MM3 Eosinophils # (Auto) 0.1 TH/MM3 Basophils # (Auto) 0.1 TH/MM3 CBC Comment DIFF FINAL Differential Comment Laboratory Tests Test 12/16/17 06:34 12/17/17 05:22 Blood Urea Nitrogen 17 MG/DL 15 MG/DL Creatinine 0.61 MG/DL 0.59 MG/DL Random Glucose 246 MG/DL 137 MG/DL Total Protein 6.3 GM/DL 6.4 GM/DL Albumin 2.1 GM/DL 2.1 GM/DL Calcium Level 8.5 MG/DL 8.2 MG/DL Alkaline Phosphatase 1195 U/L 1025 U/L Aspartate Amino Transf (AST/SGOT) 200 U/L 114 U/L Alanine Aminotransferase (ALT/SGPT) 243 U/L 206 U/L Total Bilirubin 0.3 MG/DL 0.2 MG/DL Direct Bilirubin 0.1 MG/DL Sodium Level 135 MEQ/L 138 MEQ/L Potassium Level 4.6 MEQ/L 4.7 MEQ/L Chloride Level 99 MEQ/L 103 MEQ/L Carbon Dioxide Level 27.1 MEQ/L 24.3 MEQ/L Anion Gap 9 MEQ/L 11 MEQ/L Estimat Glomerular Filtration Rate 99 ML/MIN 103 ML/MIN Indirect Bilirubin 0.2 MG/DL Phosphorus Level 3.0 MG/DL Magnesium Level 2.0 MG/DL Imaging Last Impressions Abdomen/Pelvis CT 12/17/17 0000 Signed Impressions: Service Date/Time: Sunday, December 17, 2017 15:44 - CONCLUSION: 1. There is a trace amount of free air in the upper abdomen anterior to left lobe of the liver and adjacent to the stomach. While nonspecific, this could be related to the G-tube. Suggest correlating with the clinical examination for signs of acute abdomen which would indicate a more concerning cause. 2. Moderately distended ascending and transverse colon. However, no anatomic obstruction is visualized. 3. Signs of fluid overload including bilateral pleural effusions, anasarca, periportal edema, and small volume of free fluid in the abdomen and pelvis. Uziel Troy MD Chest X-Ray 12/16/17 0600 Signed Impressions: Service Date/Time: Saturday, December 16, 2017 04:05 - CONCLUSION: 1. Stable left basilar consolidation/effusion. Possible posterior layering effusion on the right, unchanged. 2. Stable position of life support tubes Dani Titus MD Upper Extremity Ultrasound 4/29/18 0000 Signed Impressions: Service Date/Time: Friday, December 15, 2017 13:57 - CONCLUSION: Nonocclusive thrombus within left internal jugular vein. The remaining venous structures in the left upper extremity appear patent. Uziel Thomas MD Liver Ultrasound 12/12/17 0000 Signed Impressions: Service Date/Time: November 13:20 - CONCLUSION: 1. Marked gallbladder wall thickening with minimal pericholecystic fluid. No stones or sludge. 2. Small bilateral pleural effusions. Dani Titus MD Neck CTA 12/11/17 0000 Signed Impressions: Service Date/Time: Monday, December 11, 2017 23:08 - CONCLUSION: No carotid stenosis. Ac Davis MD Head CTA 12/11/17 0000 Signed Impressions: Service Date/Time: Monday, December 11, 2017 23:08 - CONCLUSION: 1. No large vessel stenosis or aneurysm. Ac Davis MD Brain MRI 12/11/17 0000 Signed Impressions: Service Date/Time: Monday, December 11, 2017 11:12 - CONCLUSION: 1. Faint diffusion restriction predominately along the high right parietal convexity with minimal diffusion restriction on the left. Pattern is somewhat unusual for anoxia with the asymmetry. Possible embolic event. CTA of the cervical and intracranial vessels to be performed for further characterization. 2. Chronic changes with some periventricular small vessel ischemic demyelination. 3. Mild ventricular prominence. In the appropriate clinical setting, findings could represent normal pressure hydrocephalus. 4. Bilateral mastoiditis. Mild chronic sinus disease in the sphenoid bilaterally. Dani Titus MD Gall Bladder Ultrasound 12/03/17 0000 Signed Impressions: Service Date/Time: Sunday, December 03, 2017 07:59 - CONCLUSION: 1. Ascites and bilateral pleural effusions. 2. Mildly distended gallbladder without evidence of wall thickening or cholelithiasis. 3. Otherwise unremarkable exam. Boo Cartwright MD Lumbar Puncture Fluoroscopy 12/02/17 0000 Signed Impressions: Service Date/Time: Saturday, December 02, 2017 15:28 - CONCLUSION: Uncomplicated fluoroscopically guided lumbar puncture. Aly Leigh MD Renal Ultrasound 11/29/17 1656 Signed Impressions: Service Date/Time: Wednesday, November 29, 2017 13:16 - CONCLUSION: 1. Both kidneys are sonographically normal without hydronephrosis or nephrolithiasis. 2. Very abnormal appearance of the gallbladder with mural thickening and minimal pericholecystic fluid Dani Titus MD Head CT 11/28/17 0000 Signed Impressions: Service Date/Time: November 15:46 - CONCLUSION: 1. Ventriculomegaly suggesting central cerebral atrophy versus hydrocephalus. Clinical correlation is recommended. 2. No acute infarct, acute hemorrhage, midline shift or extra-axial fluid collections. Dev Christopher MD Physical Exam CONSTITUTIONAL/GENERAL: This is an adequately nourished patient, in no apparent distress. TUBES/LINES/DRAINS: SKIN: No jaundice, rashes, or lesions. Skin temperature appropriate. Not diaphoretic. CARDIOVASCULAR: Regular rate and rhythm without murmurs, gallops, or rubs. No JVD. Peripheral pulses symmetric. RESPIRATORY/CHEST: Symmetric, unlabored respirations. Clear to auscultation. Breath sounds equal bilaterally. No wheezes, rales, or rhonchi. GASTROINTESTINAL: Abdomen soft, moderately distended, no reaction to palpation. No hepato-splenomegaly, or palpable masses. No guarding. Bowel sounds present. PEG in place GENITOURINARY: Without palpable bladder distension. Méndez catheter in place with clear yellow urine MUSCULOSKELETAL: Extremities without clubbing, cyanosis, or edema. No joint tenderness or effusion noted. No calf tenderness. No mottling or clubbing. LYMPHATICS: No palpable cervical or supraclavicular adenopathy. NEUROLOGICAL: Unresponsive. 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 Anh Childs MD December 17, 2017 18:24
[2017-12-18] VITALS (21 sets, daily range): BP systolic 129–150; BP diastolic 65–74; PULSE 67–85; RESP 12–13; TEMP 97.9–98.6; O2SAT 93–99
[2017-12-18] MEDS: INSULIN ASPART SUPPLEMENTAL SCALE SQ SCH ×6 (01:36→20:00)
[2017-12-18] MEDS: HEPARIN SODIUM - SQ 10,000 UNITS/ML VIAL SQ SCH ×3 (01:37→18:47)
[2017-12-18] MEDS: CHLORHEXIDINE GLUCONATE 2 % 1 PACK (2 CLOTHS) TOP SCH (04:00)
[2017-12-18 07:06] LABS: AUTOMATED NEUTROPHIL # 5.8 TH/MM3 (1.8-7.7); BASOPHIL # 0.1 TH/MM3 (0-0.2); BASOPHIL % 0.9 % (0.0-2.0); EOSINOPHIL # 0.2 TH/MM3 (0-0.4); EOSINOPHIL % 2.9 % (0.0-4.0); HEMOGLOBIN 9.3 GM/DL (11.6-15.3); LYMPH % 12.6 % (9.0-44.0); MEAN CORPUSCULAR HEMOGLOBIN 33.4 PG (27.0-34.0); MEAN CORPUSCULAR HGB CONC 34.4 % (32.0-36.0); MEAN PLATELET VOLUME 8.9 FL (7.0-11.0); MONO % 10.6 % (0.0-8.0); MONOCYTE # 0.8 TH/MM3 (0-0.9); PLATELET COUNT 458 TH/MM3 (150-450); RED BLOOD COUNT 2.78 MIL/MM3 (4.00-5.30); RED CELL DISTRIBUTION WIDTH 15.6 % (11.6-17.2); WHITE BLOOD COUNT 7.9 TH/MM3 (4.0-11.0)
[2017-12-18 07:32] LABS: ALBUMIN 1.9 GM/DL (3.4-5.0); ALT (GPT) 244 U/L (10-53); AST (GOT) 225 U/L (15-37); BICARBONATE 24.1 MEQ/L (21.0-32.0); BLOOD UREA NITROGEN 14 MG/DL (7-18); CHLORIDE 102 MEQ/L (98-107); CREATININE 0.52 MG/DL (0.50-1.00); GLOMERULAR FILTRATION RATE 119 ML/MIN (>89); GLUCOSE,RANDOM 161 MG/DL (74-106); SODIUM (NA) 134 MEQ/L (136-145)
[2017-12-18 07:48] LABS: ALKALINE PHOSPHATASE 1264 U/L (45-117); TOTAL BILIRUBIN ADULT 0.2 MG/DL (0.2-1.0); TOTAL PROTEIN 5.8 GM/DL (6.4-8.2)
--- NOTE | 2017-12-18 09:02 | HHI.CCPN ---
Subjective Remarks/Hospital Course This is a 51-year-old female. Date of admission 11/28/2017. Past medical history includes diabetes mellitus type 1 uncontrolled insulin- dependent with retinopathy on home insulin pump, hypertension, allergic rhinitis and chronic benzodiazepine use. She also has history of breast cancer on raloxifene she originally presented to [facility] ED During the workup, patient was noted to have a blood sugar of 808. Elevated acetone. Sodium 135. Potassium 6.0. Ferritin 2.1. Leukocytosis 25,000. Macrocytic anemia. UA negative for infectious etiology. She was bolused with 3 L of 0.9% NaCl IV fluid bolus. She is received 3 ampules of sodium bicarbonate and 1 g calcium gluconate. Chest x-ray post procedure revealed the CT scan of the head is read by the radiologist as ventriculomegaly but otherwise no acute findings. 11/29: Patient had nonrebreather off all night. PTX now 8 mm. Yells "Help me " "I don't know" Gap has closed, will transition back to SQ insulin if able to pass swallow. Replacing lytes. 11/30: Patient opens eyes to voice. Leftward gaze. Frequent blinking. Withdraws to stimulation bilateral lower extremities. T-max 99.5. Remains on norepinephrine and phenylephrine drips. MRI brain revealed ventriculomegaly. No acute signs of CVA. Echocardiogram EF 40%. 12/01: Afebrile. Patient remains off sedation approximately 24 hours nonresponsive. EEG in process. BAL revealed gram-negative rods the patient continues on Zosyn. The patient remains on vasopressors norepinephrine, vasopressin, and phenylephrine. Versed infusion restarted secondary to seizure activity noted on repeat EEG this a.m.. 12/02: Afebrile. The patient is scheduled for lumbar puncture this a.m., INR 1.0 patient has been off subcu heparin approximately 3 days. The patient continues on Versed and fentanyl infusions to maintain ventilator synchrony and avoidance of subclinical seizures which were noted on the EEG yesterday. The patient continues on multiple vasopressors to include norepinephrine and phenylephrine and vasopressin. Vasopressin currently being weaned off. The patient continues to have persistent leukocytosis though it is slightly downtrending plan for ID consult today appreciate recommendations. Bronchial washings resulted E. coli, currently patient continues on Zosyn. Patient was noted to have a positive fluid balance yesterday the patient received 20 mg of Lasix with adequate diuresis the patient noted to have a sodium level slightly decreased at 135 IV fluids mixed in 0.9 normal saline. 12/03: No acute events overnight lumbar puncture performed yesterday results pending. Dilantin level therapeutic. Phenobarbital level pending. Patient off vasopressin 24 hours. Phenylephrine currently being weaned off. Patient noted to be anemic 1 unit packed cells will be transfused today no pneumothorax chest tube now placed to waterseal today. 12/04: T-max 99.4. Repeat EEG performed today. Patient now withdrawing to pain 4 extremities, and open eyes to painful stimulus. Patient noted to move bilateral lower extremities 1 this shift. Patient tolerating tube feeds, overbreathing vent will begin CPAP trials in the a.m. if clinically stable. Phenylephrine completely discontinued overnight. Norepinephrine has been decreased to 3 mics/min. hemoglobin stable. 12/05: Afebrile. Patient was weaned off of norepinephrine last p.m.. The patient has been off sedation for greater than 48 hours, no change in neurological status opens eyes to deep stimulation, moves extremities 4 withdrawing to painful stimuli. CPAP trials initiated this a.m. the patient tolerated CPAP for approximately 6.5 hours. Chest x-ray remains unchanged no pneumo thorax, plan for removal of chest tube this evening. 12/06 No events overnight. On no sedation. Afebrile. unresponsive s/p removal chest tube yesterday.. 12/07 versed drip off since 12/04.. Eyes open to noxious stimuli, spontaneously moved R hand, withdraws x4. Temp max 99.3. WBC 11.2 today. Remains off pressors. On CPAP 05/23 and tolerating Subjective: 12/08. Temp max 100.4 overnight. Blood, urine, sputum cultures were sent. White blood cell count 13 this morning. Blood pressure was down to 84/46 with map of 56 this morning. Diuresed nearly 4 L yesterday with Lasix 40 IV q12, creatinine increased today. Tolerating tube feeds. Liquid stool x3 overnight. Apneic during multiple attempts at CPAP this morning. No neuro change. EEG bilateral slowing. Bihemispheric abnormalities. No epileptiform features 12/09: Remains encephalopathic, orally intubated on mechanical ventilation. Tolerating tube feeds. Not on any sedation. 12/10: Remains encephalopathic, orally intubated on mechanical ventilation. Tolerating tube feeds. Minimal eye opening with painful stimuli however extremely poor gag response. 12/11: Remains encephalopathic, orally intubated on mechanical ventilation. Tolerating tube feeds. Awaiting MRI/ EEG. 12/12: Remains encephalopathic, orally intubated on mechanical ventilation. No significant improvement in neurologic status noted. Tolerating tube feeds. EEG very abnormal more on the right. MRI brain done yesterday with high parietal lobe ischemic changes however CTA with no major vessel stenosis or aneurysm. 12/13 No events overnight. Remains intubated unresponsive. Afebrile. On no drips. 12/14: Remains encephalopathic, orally intubated on mechanical ventilation. 12/15:The patient tolerated CPAP trials for approximately 6 hours yesterday. The patient still remains encephalopathic. Tentative plan for possible PEG placement and tracheostomy, pending family decision. 12/16 Patient was transferred from PO yesterday for trach and PEG tube placement today. Afebrile. 12/17 Patient s/p trach and PEG tube placement yesterday. Afebrile. On no sedation. 12/18 No events overnight. Afebrile, for HIDA scan today.Tolerated CPAP all day yesterday Objective Vital Signs Date Time Temp Pulse Resp B/P (MAP) Pulse Ox O2 Delivery O2 Flow Rate FiO2 12/18/17 06:00 85 12/18/17 04:17 94 35 12/18/17 04:00 98.6 12 132/72 (92) 12/15/17 19:00 Mechanical Ventilator Intake and Output 12/18/17 12/18/17 12/19/17 08:00 16:00 00:00 Intake Total 555 ml Output Total 450 ml Balance 105 ml Result Diagram: 12/18/17 0642 12/18/17 0642 Other Results Laboratory Tests Test 12/18/17 06:42 White Blood Count 7.9 TH/MM3 Red Blood Count 2.78 MIL/MM3 Hemoglobin 9.3 GM/DL Hematocrit 27.0 % Mean Corpuscular Volume 97.0 FL Mean Corpuscular Hemoglobin 33.4 PG Mean Corpuscular Hemoglobin Concent 34.4 % Red Cell Distribution Width 15.6 % Platelet Count 458 TH/MM3 Mean Platelet Volume 8.9 FL Neutrophils (%) (Auto) 73.0 % Lymphocytes (%) (Auto) 12.6 % Monocytes (%) (Auto) 10.6 % Eosinophils (%) (Auto) 2.9 % Basophils (%) (Auto) 0.9 % Neutrophils # (Auto) 5.8 TH/MM3 Lymphocytes # (Auto) 1.0 TH/MM3 Monocytes # (Auto) 0.8 TH/MM3 Eosinophils # (Auto) 0.2 TH/MM3 Basophils # (Auto) 0.1 TH/MM3 CBC Comment DIFF FINAL Differential Comment Blood Urea Nitrogen 14 MG/DL Creatinine 0.52 MG/DL Random Glucose 161 MG/DL Total Protein 5.8 GM/DL Albumin 1.9 GM/DL Calcium Level 8.0 MG/DL Alkaline Phosphatase 1264 U/L Aspartate Amino Transf (AST/SGOT) 225 U/L Alanine Aminotransferase (ALT/SGPT) 244 U/L Total Bilirubin 0.2 MG/DL Sodium Level 134 MEQ/L Potassium Level 4.2 MEQ/L Chloride Level 102 MEQ/L Carbon Dioxide Level 24.1 MEQ/L Anion Gap 8 MEQ/L Estimat Glomerular Filtration Rate 119 ML/MIN Imaging Last Impressions Abdomen/Pelvis CT 12/17/17 0000 Signed Impressions: Service Date/Time: Sunday, December 17, 2017 15:44 - CONCLUSION: 1. There is a trace amount of free air in the upper abdomen anterior to left lobe of the liver and adjacent to the stomach. While nonspecific, this could be related to the G-tube. Suggest correlating with the clinical examination for signs of acute abdomen which would indicate a more concerning cause. 2. Moderately distended ascending and transverse colon. However, no anatomic obstruction is visualized. 3. Signs of fluid overload including bilateral pleural effusions, anasarca, periportal edema, and small volume of free fluid in the abdomen and pelvis. Uziel Troy MD Chest X-Ray 12/16/17 0600 Signed Impressions: Service Date/Time: Saturday, December 16, 2017 04:05 - CONCLUSION: 1. Stable left basilar consolidation/effusion. Possible posterior layering effusion on the right, unchanged. 2. Stable position of life support tubes Dani Titus MD Upper Extremity Ultrasound 12/15/17 0000 Signed Impressions: Service Date/Time: Friday, December 15, 2017 13:57 - CONCLUSION: Nonocclusive thrombus within left internal jugular vein. The remaining venous structures in the left upper extremity appear patent. Uziel Thomas MD Liver Ultrasound 12/12/17 0000 Signed Impressions: Service Date/Time: November 13:20 - CONCLUSION: 1. Marked gallbladder wall thickening with minimal pericholecystic fluid. No stones or sludge. 2. Small bilateral pleural effusions. Dani Titus MD Neck CTA 12/11/17 0000 Signed Impressions: Service Date/Time: Monday, December 11, 2017 23:08 - CONCLUSION: No carotid stenosis. Ac Davis MD Head CTA 12/11/17 0000 Signed Impressions: Service Date/Time: Monday, December 11, 2017 23:08 - CONCLUSION: 1. No large vessel stenosis or aneurysm. Ac Davis MD Brain MRI 12/11/17 0000 Signed Impressions: Service Date/Time: Monday, December 11, 2017 11:12 - CONCLUSION: 1. Faint diffusion restriction predominately along the high right parietal convexity with minimal diffusion restriction on the left. Pattern is somewhat unusual for anoxia with the asymmetry. Possible embolic event. CTA of the cervical and intracranial vessels to be performed for further characterization. 2. Chronic changes with some periventricular small vessel ischemic demyelination. 3. Mild ventricular prominence. In the appropriate clinical setting, findings could represent normal pressure hydrocephalus. 4. Bilateral mastoiditis. Mild chronic sinus disease in the sphenoid bilaterally. Dani Titus MD Gall Bladder Ultrasound 12/03/17 0000 Signed Impressions: Service Date/Time: Sunday, December 03, 2017 07:59 - CONCLUSION: 1. Ascites and bilateral pleural effusions. 2. Mildly distended gallbladder without evidence of wall thickening or cholelithiasis. 3. Otherwise unremarkable exam. Boo Cartwright MD Lumbar Puncture Fluoroscopy 12/02/17 0000 Signed Impressions: Service Date/Time: Saturday, December 02, 2017 15:28 - CONCLUSION: Uncomplicated fluoroscopically guided lumbar puncture. Aly Leigh MD Renal Ultrasound 11/29/17 1656 Signed Impressions: Service Date/Time: Wednesday, November 29, 2017 13:16 - CONCLUSION: 1. Both kidneys are sonographically normal without hydronephrosis or nephrolithiasis. 2. Very abnormal appearance of the gallbladder with mural thickening and minimal pericholecystic fluid Dani Titus MD Head CT 11/28/17 0000 Signed Impressions: Service Date/Time: November 15:46 - CONCLUSION: 1. Ventriculomegaly suggesting central cerebral atrophy versus hydrocephalus. Clinical correlation is recommended. 2. No acute infarct, acute hemorrhage, midline shift or extra-axial fluid collections. Dev Christopher MD Procedures 12/02- lumbar puncture Objective Remarks GENERAL: 61-year-old female on ventilator via trach SKIN: Warm and dry. No rash HEAD: Atraumatic. Normocephalic. EYES: Gaze conjugate. Pupils equal and round about 4 mm and reactive to 2 mm bilaterally. No scleral icterus. No injection. Scleral edema improved. ENT: No nasal bleeding or discharge. Mucous membranes pink and moist NECK: Trachea midline. No JVD. CARDIOVASCULAR: RRR. . No murmur RESPIRATORY: B/L equal air entry GASTROINTESTINAL: NGT L nare with tube feeds running. Abdomen soft, non-tender, nondistended. Bowel sounds present.+PEG tube MUSCULOSKELETAL: Edema improved, ~ 1+ of hands and ble. NEUROLOGICAL: Pupils reactive as per above + cough + gag. Eyes open to deep central noxious stimuli. Withdraws with all extremities. Date of Insertion: Nov 28, 2017 Line: Central Venous Catheter Side: Left Location: Internal, Jugular A/P Assessment and Plan Neuro/Psych: Acute encephalopathy secondary to diabetic ketoacidosis Anxiety disorder NOS Benzodiazepine use Off sedation since 12/04. Neurology Dr. Neville Acetaminophen 650 mg by tube every 6 hours as needed fever CT brain 11/28 revealed Ventriculomegaly suggesting central cerebral atrophy versus hydrocephalus. Clinical correlation is recommended. No acute infarct, acute hemorrhage, midline shift or extra-axial fluid collections. UDS negative MRI brain 11/29 revealed mild to moderate ventriculomegaly. EEG - 12/07 bihemispheric slowing. No epileptiform features. EEG 11/28- bihemispheric slowing with some left frontocentral sharp waves and phase reversal suggesting an epileptiform abnormality and possible structural lesion in this region. No ictal pattern present. Neurology -Dr. Neville, on Cerebyx 200mg Q12. 12/02 Ophthalmology -no eye infection Lacri-Lube applied for scleral edema 12/02-lumbar puncture-negative. CSF HSV negative 12/03-cortisol level 17 ammonia level 22 12/11 EEG consistent with a severe encephalopathy. There is more prominent slowing over the right hemisphere. MRI brain done on 12/11 with ischemic changes high left parietal lobe however CTA brain with no major vessel stenosis or aneurysm. . CV: History of hypertension Shock, resolved Elevated troponin Acute systolic heart failure ejection fraction 40% NSTEMI cardiomyopathy Monitor HR and BP keep MAP>65mmHg Atorvastatin 10 mg by tube daily on hold for elevated LFT's Continue aspirin 81 mg by tube daily 2D echocardiogram revealed EF around 40%. LV increased size. Septal hypokinesis. 12/03- Cardiology has signed off Resp: Acute hypoxemic respiratory failure Hemoptysis-resolved Tobacco abuse/ongoing Iatrogenic PTX status post chest tube placement PRVC12 /450/1/, Ventilator bundle. s/p trach on 12/16 Albuterol/ipratropium aerosols every 6 hours with albuterol aerosols every 2 hours as needed dyspnea 12/03 Right chest tube in placed to waterseal 11/29 Status post chest tube placement see documentation, removed 12/05. Status post bronchoscopy 11/29. GI: Moderate protein energy malnutrition Elevated LFT's Resume tube feeds- Glucerna 1.5 with goal rate to 40 mL/h on hold for HIDA scan famotidine for GI prophylaxis s/p PEG tube placement 12/16 Docusate sodium/senna 1 tablet twice daily for bowel regimen 12/17 CT abdomen/pelvis from today showed trace amount of free air in the upper abdomen anterior to left lobe of the liver and adjacent to the stomach. this could be related to the G-tube. Moderately distended ascending and transverse colon. No obstruction. 12/12 US Liver: Marked gallbladder wall thickening with minimal pericholecystic fluid. No stones or sludge. Small bilateral pleural effusions. 12/03 gallbladder ultrasound -gallbladder mildly distended without evidence of wall thickening or cholelithiasis. There is ascites and pleural effusions. GI eval noted. Continue multivitamin/thiamine. thiamine via og FEN/RENAL: BRIELLE- resolved Hyponatremia Monitor renal function, I/O's, electrolytes replacement per protocol. d/c IVF Renal ultrasound revealed no medical renal disease. Endo: Insulin-dependent diabetes mellitus type 1 uncontrolled Diabetic ketoacidosis - resolved Originally, patient received 3 L normal saline in the ED along with 3 refills and bicarbonate, 1 ampule of calcium gluconate. Beta hydroxybutyrate cleared 11/29 Insulin pump was disconnected 11/28. According to sister Evelyn Obrien, patient had received a new insulin pump within the past 48 hours [employer]. She has no history of DKA in the past to her knowledge TSH 0.38 Continue SSI Novulog medium protocol with accucheck every 4 hours maintain euglycemia Levemir 7 q12 Heme: Leukocytosis- Resolved Macrocytic anemia Monitor CBC daily. 12/03 transfused 1 unit of packed red blood cells ID: Community-acquired versus aspiration BC x2, UA (-) inf A/B negative 11/29 S/P bronchoscopy with sample sent from left lower lobe 11/29 Sputum (BAL)-E.coli, pansensitive ID is following, Dr. Childs On Rocephin/ oral fluconazole Vancomycin has been discontinued 12/06 per ID 12/02-lumbar puncture-negative Access PIV in place Prophylaxis -GI -famotidine for stress ulcer prophylaxis -DVT -SCD/continue heparin SQ Doppler US UE: Non-occlusive thrombus left IJ vein Palliative care is following Level 3 Edouard Mayo MD December 18, 2017 09:02
[2017-12-18] MEDS: CHLORHEXIDINE 0.12% (ORAL KIT) 15 ML CUP MT SCH ×2 (09:10→20:27)
[2017-12-18] MEDS: ASPIRIN 81 MG CHEW TAB CHEW SCH (09:11)
[2017-12-18] MEDS: FOSPHENYTOIN SODIUM 100 MG PE/2 ML VIAL IV SCH ×2 (09:11→21:24)
[2017-12-18] MEDS: THIAMINE HCL 100 MG TAB OG-TUBE SCH (09:12)
[2017-12-18] MEDS: FLUCONAZOLE 200 MG TAB PO SCH (09:12)
[2017-12-18] MEDS: FAMOTIDINE 20 MG TAB NG SCH ×2 (09:12→20:26)
[2017-12-18] MEDS: INSULIN DETEMIR 100 UNITS/ML VIAL SQ SCH ×2 (09:12→20:26)
[2017-12-18] MEDS: MULTIVITAMIN TAB PO SCH (09:12)
[2017-12-18] MEDS: SODIUM CHLORIDE 0.9% FLUSH 10 ML FLUSH IV FLUSH SCH ×3 (09:13→20:25)
[2017-12-18] MEDS: ARTIFICIAL TEARS OPTH OINT 3.5 APPLIC/3.5 GM TUBO EACH EYE SCH ×4 (10:48→20:26)
[2017-12-18] MEDS ORDERED: SINCALIDE 5 MCG/5 ML VIAL IV ONE (12:40)
--- NOTE | 2017-12-18 13:44 | RADRPT ---
EXAM DATE/TIME: 12/18/2017 10:53 This report includes an Addendum and supersedes previous reports for this exam. [facility] COMPARISON: CT ABDOMEN & PELVIS W CONTRAST, December 17, 2017, 15:44. INDICATIONS : Cholecystitis. DOSE: 4.1 mCi Tc99m Mebrofenin IV MEDICATION: 1.2 mcg Cholecystokinin IV; No symptomatic response. Cholecystokinin was administered by slow infusion over 8 minutes beginning at ? minutes. MEDICAL HISTORY : Diabetes mellitus type 2. SURGICAL HISTORY : Tracheostomy. ENCOUNTER: Initial ACUITY: 2 days PAIN SCALE: Non-responsive LOCATION: Right upper quadrant TECHNIQUE: Following the intravenous administration of radiotracer, dynamic sequential image were performed with continuous acquisition. Time-activity curves were generated. FINDINGS: HEPATIC KINETICS: There is prompt uptake of radiotracer in the liver. No focal defects are seen. There is normal rate of washout from the hepatic parenchyma. BILIARY CLEARANCE: Activity is first seen in the extrahepatic biliary system at 15 minutes. There is normal excretion i nto the small bowel. GALLBLADDER: Activity is first seen in the gallbladder at 15 minutes. POST CHOLECYSTOKININ: After Cholecystokinin administration, there is prompt emptying of the gallbladder with a 40 % ejectio n fraction. Common bile duct kinetics are normal and there is no evidence of biliary obstruction. BILIARY ENTERIC REFLUX: None observed. CLINICAL: The patient was asymptomatic after Cholecystokinin administration. CONCLUSION: 1. Normal uptake and excretion of radiotracer. Dimitri Bird MD on December 18, 2017 at 13:01 Board Certified Radiologist. This report was verified electronically. ADDENDUM: The there is a air in the report under the medication sections it should read cholecystokinin was adm inistered by slow infusion over 8 minutes beginning at the 60 minute jyoti. Dimitri Bird MD on December 19, 2017 at 9:38 Board Certified Radiologist. This report was verified electronically.
--- NOTE | 2017-12-18 13:46 | HHI.GIFU ---
Subjective Remarks Pt resting in bed, on vent. (Lanette Spears) Objective Vitals I&O Vital Signs Date Time Temp Pulse Resp B/P (MAP) Pulse Ox O2 Delivery O2 Flow Rate FiO2 12/18/17 12:46 99 35 12/18/17 08:00 35 12/18/17 06:00 85 12/18/17 04:17 94 35 12/18/17 04:00 35 12/18/17 04:00 78 12/18/17 04:00 98.6 78 12 132/72 (92) 94 12/18/17 02:00 75 12/18/17 00:46 95 35 12/18/17 00:00 98.2 81 12 132/74 (93) 93 12/18/17 00:00 35 12/18/17 00:00 81 12/17/17 22:00 87 12/17/17 20:47 95 35 12/17/17 20:00 35 12/17/17 20:00 98.8 76 16 140/74 (96) 97 12/17/17 20:00 76 12/17/17 18:00 74 12/17/17 17:48 95 35 12/17/17 17:00 82 12/17/17 16:00 98.2 85 23 137/72 (93) 98 12/17/17 16:00 85 12/17/17 16:00 35 12/17/17 15:30 96 40 12/17/17 15:00 87 19 128/78 (95) 98 12/17/17 15:00 87 12/17/17 14:00 84 12/17/17 14:00 84 16 136/80 (98) 97 I/O 12/17/17 12/17/17 12/17/17 12/18/17 12/18/17 12/18/17 07:00 15:00 23:00 07:00 15:00 23:00 Intake Total 188 ml 1787 ml 555 ml Output Total 575 ml 400 ml 450 ml Balance -387 ml 1387 ml 105 ml IV Total 68 ml 663 ml Tube Feeding 125 ml 475 ml Other 120 ml 999 ml 80 ml Output Urine Total 575 ml 400 ml 450 ml # Bowel Movements 1 0 1 Laboratory Laboratory Tests Test 12/18/17 06:42 White Blood Count 7.9 Red Blood Count 2.78 Hemoglobin 9.3 Hematocrit 27.0 Mean Corpuscular Volume 97.0 Mean Corpuscular Hemoglobin 33.4 Mean Corpuscular Hemoglobin Concent 34.4 Red Cell Distribution Width 15.6 Platelet Count 458 Mean Platelet Volume 8.9 Neutrophils (%) (Auto) 73.0 Lymphocytes (%) (Auto) 12.6 Monocytes (%) (Auto) 10.6 Eosinophils (%) (Auto) 2.9 Basophils (%) (Auto) 0.9 Neutrophils # (Auto) 5.8 Lymphocytes # (Auto) 1.0 Monocytes # (Auto) 0.8 Eosinophils # (Auto) 0.2 Basophils # (Auto) 0.1 CBC Comment DIFF FINAL Differential Comment Blood Urea Nitrogen 14 Creatinine 0.52 Random Glucose 161 Total Protein 5.8 Albumin 1.9 Calcium Level 8.0 Alkaline Phosphatase 1264 Aspartate Amino Transf (AST/SGOT) 225 Alanine Aminotransferase (ALT/SGPT) 244 Total Bilirubin 0.2 Sodium Level 134 Potassium Level 4.2 Chloride Level 102 Carbon Dioxide Level 24.1 Anion Gap 8 Estimat Glomerular Filtration Rate 119 Date/Time Source Procedure Growth Status 12/08/17 06:13 Blood Peripheral Aerobic Blood Culture - Final NO GROWTH IN 5 DAYS Complete 12/08/17 06:13 Blood Peripheral Anaerobic Blood Culture - Final NO GROWTH IN 5 DAYS Complete 12/02/17 15:29 Cerebral Spinal Fluid Lumbar Puncture Gram Stain - Final Complete 12/02/17 15:29 Cerebral Spinal Fluid Lumbar Puncture CSF Culture - Final NO GROWTH IN 72 HOURS Complete 12/08/17 06:00 Sputum Nasal Tracheal Aspirate Gram Stain - Final Complete 12/08/17 06:00 Sputum Culture - Final Escherichia Coli Complete 12/08/17 06:09 Urine Catheterized Urine Urine Culture - Final Anna Glabrata Complete Imaging Last Impressions Abdomen/Pelvis CT 12/17/17 0000 Signed Impressions: Service Date/Time: Sunday, December 17, 2017 15:44 - CONCLUSION: 1. There is a trace amount of free air in the upper abdomen anterior to left lobe of the liver and adjacent to the stomach. While nonspecific, this could be related to the G-tube. Suggest correlating with the clinical examination for signs of acute abdomen which would indicate a more concerning cause. 2. Moderately distended ascending and transverse colon. However, no anatomic obstruction is visualized. 3. Signs of fluid overload including bilateral pleural effusions, anasarca, periportal edema, and small volume of free fluid in the abdomen and pelvis. Uziel Troy MD Chest X-Ray 12/16/17 0600 Signed Impressions: Service Date/Time: Saturday, December 16, 2017 04:05 - CONCLUSION: 1. Stable left basilar consolidation/effusion. Possible posterior layering effusion on the right, unchanged. 2. Stable position of life support tubes Dani Titus MD Upper Extremity Ultrasound 12/15/17 0000 Signed Impressions: Service Date/Time: Friday, December 15, 2017 13:57 - CONCLUSION: Nonocclusive thrombus within left internal jugular vein. The remaining venous structures in the left upper extremity appear patent. Uziel Thomas MD Liver Ultrasound 12/12/17 0000 Signed Impressions: Service Date/Time: November 13:20 - CONCLUSION: 1. Marked gallbladder wall thickening with minimal pericholecystic fluid. No stones or sludge. 2. Small bilateral pleural effusions. Dani Titus MD Neck CTA 12/11/17 0000 Signed Impressions: Service Date/Time: Monday, December 11, 2017 23:08 - CONCLUSION: No carotid stenosis. Ac Davis MD Head CTA 12/11/17 0000 Signed Impressions: Service Date/Time: Monday, December 11, 2017 23:08 - CONCLUSION: 1. No large vessel stenosis or aneurysm. Ac Davis MD Brain MRI 12/11/17 0000 Signed Impressions: Service Date/Time: Monday, December 11, 2017 11:12 - CONCLUSION: 1. Faint diffusion restriction predominately along the high right parietal convexity with minimal diffusion restriction on the left. Pattern is somewhat unusual for anoxia with the asymmetry. Possible embolic event. CTA of the cervical and intracranial vessels to be performed for further characterization. 2. Chronic changes with some periventricular small vessel ischemic demyelination. 3. Mild ventricular prominence. In the appropriate clinical setting, findings could represent normal pressure hydrocephalus. 4. Bilateral mastoiditis. Mild chronic sinus disease in the sphenoid bilaterally. Dani Titus MD Gall Bladder Ultrasound 12/03/17 0000 Signed Impressions: Service Date/Time: Sunday, December 03, 2017 07:59 - CONCLUSION: 1. Ascites and bilateral pleural effusions. 2. Mildly distended gallbladder without evidence of wall thickening or cholelithiasis. 3. Otherwise unremarkable exam. Boo Cartwright MD Lumbar Puncture Fluoroscopy 12/02/17 0000 Signed Impressions: Service Date/Time: Saturday, December 02, 2017 15:28 - CONCLUSION: Uncomplicated fluoroscopically guided lumbar puncture. Aly Leigh MD Renal Ultrasound 11/29/17 1656 Signed Impressions: Service Date/Time: Wednesday, November 29, 2017 13:16 - CONCLUSION: 1. Both kidneys are sonographically normal without hydronephrosis or nephrolithiasis. 2. Very abnormal appearance of the gallbladder with mural thickening and minimal pericholecystic fluid Dani Titus MD Head CT 11/28/17 0000 Signed Impressions: Service Date/Time: November 15:46 - CONCLUSION: 1. Ventriculomegaly suggesting central cerebral atrophy versus hydrocephalus. Clinical correlation is recommended. 2. No acute infarct, acute hemorrhage, midline shift or extra-axial fluid collections. Dev Christopher MD Physical Exam HEENT:PERRL . trach CHEST : CTA CARDIAC: RRR ABDOMEN: Soft,mildly distended, tympanitic, no hepatosplenomegaly; BS faint. PEG site clean EXTREMITIES: No clubbing, cyanosis, trace edema. SKIN: Normal; no rash; no jaundice. [employer]: unresponsive (Lanette Spears ORDER DESK CALLER) Assessment and Plan Plan Elevated liver function tests, improving slowly, most likely cholecystitis antibiotic, or it could be medication related, Overall guarded prognosis Continue monitoring LFTs 12/15/2017 no significant change, liver function tests are more elevated, most likely cholecystitis or medication related, will continue monitoring If family decided to have PEG tube this can be done tomorrow 12/16/2017 liver function tests slightly improved today, PEG tube was placed IMPRESSION: Mild to moderate duodenitis otherwise normal upper endoscopy PEG tube was placed in the left upper quadrant, 20 [place]ian 1 g of Ancef was given during the procedure 12/18/17 resting in bed. s/p PEG, trach. abd mildly distended. now with elevated LFTs trending up. ?congestion vs DILI CT 12/17/17 showed moderately distended ascending and transverse colon, no obstruction, fluid overload. HIDA is pending PLAN: - await HIDA report - monitor LFTs - TF per nutrition - supportive care pt seen by myself and Dr Love and this note is on his behalf (Lanette Spears) Plan Patient was seen and examined, agree with above note, HIDA scan show normal uptake and excretion so no obstruction, possibly congestion of the liver or toxicity secondary to medication, I recommend fractionation of alkaline phosphatase to make sure that this is not coming from other source besides the liver (Verenice Love MD) Lanette Spears December 18, 2017 13:45 Verenice Love MD December 18, 2017 21:11
[2017-12-18] MEDS: cefTRIAXone INJ 2,000 MG in SODIUM CHLORIDE 0.9% INJ 100 ML IV SCH (18:47)
[2017-12-18] MEDS: DEXTROSE 50% IN WATER 50 ML VIAL(D50) IV PUSH PRN (20:24)
[2017-12-18 22:28] LABS: % SATURATION IRON PROFILE 9.6 % (20-50); IRON (FE) 23 MCG/DL (50-170); TOTAL IRON BINDING CAPACITY 241 MCG/DL (250-450)
[2017-12-19] VITALS (21 sets, daily range): BP systolic 128–147; BP diastolic 65–73; PULSE 69–85; RESP 12–16; TEMP 98.2–98.9; O2SAT 97–100
[2017-12-19] MEDS: HEPARIN SODIUM - SQ 10,000 UNITS/ML VIAL SQ SCH ×3 (02:21→18:34)
[2017-12-19] MEDS: CHLORHEXIDINE GLUCONATE 2 % 1 PACK (2 CLOTHS) TOP SCH (04:00)
[2017-12-19] MEDS: INSULIN ASPART SUPPLEMENTAL SCALE SQ SCH ×6 (04:00→21:04)
[2017-12-19] MEDS: CHLORHEXIDINE 0.12% (ORAL KIT) 15 ML CUP MT SCH ×2 (08:00→21:04)
[2017-12-19 09:27] LABS: AUTOMATED NEUTROPHIL # 6.1 TH/MM3 (1.8-7.7); BASOPHIL # 0.1 TH/MM3 (0-0.2); BASOPHIL % 0.9 % (0.0-2.0); EOSINOPHIL # 0.2 TH/MM3 (0-0.4); EOSINOPHIL % 2.9 % (0.0-4.0); HEMOGLOBIN 9.4 GM/DL (11.6-15.3); LYMPH % 10.8 % (9.0-44.0); LYMPHOCYTE # 0.9 TH/MM3 (1.0-4.8); MEAN CELL VOLUME 98.2 FL (80.0-100.0); MEAN CORPUSCULAR HEMOGLOBIN 33.2 PG (27.0-34.0); MEAN CORPUSCULAR HGB CONC 33.8 % (32.0-36.0); MEAN PLATELET VOLUME 9.1 FL (7.0-11.0); MONO % 9.7 % (0.0-8.0); MONOCYTE # 0.8 TH/MM3 (0-0.9); NEUT % 75.7 % (16.0-70.0); PLATELET COUNT 459 TH/MM3 (150-450); RED BLOOD COUNT 2.85 MIL/MM3 (4.00-5.30); RED CELL DISTRIBUTION WIDTH 15.6 % (11.6-17.2)
--- NOTE | 2017-12-19 09:43 | HHI.CCPN ---
Subjective Remarks/Hospital Course This is a 51-year-old female. Date of admission 11/28/2017. Past medical history includes diabetes mellitus type 1 uncontrolled insulin- dependent with retinopathy on home insulin pump, hypertension, allergic rhinitis and chronic benzodiazepine use. She also has history of breast cancer on raloxifene she originally presented to [facility] ED During the workup, patient was noted to have a blood sugar of 808. Elevated acetone. Sodium 135. Potassium 6.0. Ferritin 2.1. Leukocytosis 25,000. Macrocytic anemia. UA negative for infectious etiology. She was bolused with 3 L of 0.9% NaCl IV fluid bolus. She is received 3 ampules of sodium bicarbonate and 1 g calcium gluconate. Chest x-ray post procedure revealed the CT scan of the head is read by the radiologist as ventriculomegaly but otherwise no acute findings. 11/29: Patient had nonrebreather off all night. PTX now 8 mm. Yells "Help me " "I don't know" Gap has closed, will transition back to SQ insulin if able to pass swallow. Replacing lytes. 11/30: Patient opens eyes to voice. Leftward gaze. Frequent blinking. Withdraws to stimulation bilateral lower extremities. T-max 99.5. Remains on norepinephrine and phenylephrine drips. MRI brain revealed ventriculomegaly. No acute signs of CVA. Echocardiogram EF 40%. 12/01: Afebrile. Patient remains off sedation approximately 24 hours nonresponsive. EEG in process. BAL revealed gram-negative rods the patient continues on Zosyn. The patient remains on vasopressors norepinephrine, vasopressin, and phenylephrine. Versed infusion restarted secondary to seizure activity noted on repeat EEG this a.m.. 12/02: Afebrile. The patient is scheduled for lumbar puncture this a.m., INR 1.0 patient has been off subcu heparin approximately 3 days. The patient continues on Versed and fentanyl infusions to maintain ventilator synchrony and avoidance of subclinical seizures which were noted on the EEG yesterday. The patient continues on multiple vasopressors to include norepinephrine and phenylephrine and vasopressin. Vasopressin currently being weaned off. The patient continues to have persistent leukocytosis though it is slightly downtrending plan for ID consult today appreciate recommendations. Bronchial washings resulted E. coli, currently patient continues on Zosyn. Patient was noted to have a positive fluid balance yesterday the patient received 20 mg of Lasix with adequate diuresis the patient noted to have a sodium level slightly decreased at 135 IV fluids mixed in 0.9 normal saline. 12/03: No acute events overnight lumbar puncture performed yesterday results pending. Dilantin level therapeutic. Phenobarbital level pending. Patient off vasopressin 24 hours. Phenylephrine currently being weaned off. Patient noted to be anemic 1 unit packed cells will be transfused today no pneumothorax chest tube now placed to waterseal today. 12/04: T-max 99.4. Repeat EEG performed today. Patient now withdrawing to pain 4 extremities, and open eyes to painful stimulus. Patient noted to move bilateral lower extremities 1 this shift. Patient tolerating tube feeds, overbreathing vent will begin CPAP trials in the a.m. if clinically stable. Phenylephrine completely discontinued overnight. Norepinephrine has been decreased to 3 mics/min. hemoglobin stable. 12/05: Afebrile. Patient was weaned off of norepinephrine last p.m.. The patient has been off sedation for greater than 48 hours, no change in neurological status opens eyes to deep stimulation, moves extremities 4 withdrawing to painful stimuli. CPAP trials initiated this a.m. the patient tolerated CPAP for approximately 6.5 hours. Chest x-ray remains unchanged no pneumo thorax, plan for removal of chest tube this evening. 12/06 No events overnight. On no sedation. Afebrile. unresponsive s/p removal chest tube yesterday.. 12/07 versed drip off since 12/04.. Eyes open to noxious stimuli, spontaneously moved R hand, withdraws x4. Temp max 99.3. WBC 11.2 today. Remains off pressors. On CPAP 05/23 and tolerating Subjective: 12/08. Temp max 100.4 overnight. Blood, urine, sputum cultures were sent. White blood cell count 13 this morning. Blood pressure was down to 84/46 with map of 56 this morning. Diuresed nearly 4 L yesterday with Lasix 40 IV q12, creatinine increased today. Tolerating tube feeds. Liquid stool x3 overnight. Apneic during multiple attempts at CPAP this morning. No neuro change. EEG bilateral slowing. Bihemispheric abnormalities. No epileptiform features 12/09: Remains encephalopathic, orally intubated on mechanical ventilation. Tolerating tube feeds. Not on any sedation. 12/10: Remains encephalopathic, orally intubated on mechanical ventilation. Tolerating tube feeds. Minimal eye opening with painful stimuli however extremely poor gag response. 12/11: Remains encephalopathic, orally intubated on mechanical ventilation. Tolerating tube feeds. Awaiting MRI/ EEG. 12/12: Remains encephalopathic, orally intubated on mechanical ventilation. No significant improvement in neurologic status noted. Tolerating tube feeds. EEG very abnormal more on the right. MRI brain done yesterday with high parietal lobe ischemic changes however CTA with no major vessel stenosis or aneurysm. 12/13 No events overnight. Remains intubated unresponsive. Afebrile. On no drips. 12/14: Remains encephalopathic, orally intubated on mechanical ventilation. 12/15:The patient tolerated CPAP trials for approximately 6 hours yesterday. The patient still remains encephalopathic. Tentative plan for possible PEG placement and tracheostomy, pending family decision. 12/16 Patient was transferred from PO yesterday for trach and PEG tube placement today. Afebrile. 12/17 Patient s/p trach and PEG tube placement yesterday. Afebrile. On no sedation. 12/18 No events overnight. Afebrile, for HIDA scan today.Tolerated CPAP all day yesterday 12/19 Patient remains on ventilator via trach. HIDA scan yesterday unremarkable. Afebrile. Objective Vital Signs Date Time Temp Pulse Resp B/P (MAP) Pulse Ox O2 Delivery O2 Flow Rate FiO2 12/19/17 08:00 35 12/19/17 08:00 97 12/19/17 06:00 69 12/19/17 06:00 13 144/68 (93) 12/19/17 04:00 98.2 12/15/17 19:00 Mechanical Ventilator Intake and Output 12/19/17 12/19/17 12/20/17 08:00 16:00 00:00 Intake Total 468 ml Output Total 450 ml Balance 18 ml Result Diagram: 12/19/17 0827 12/18/17 0642 Other Results Laboratory Tests Test 12/19/17 06:34 12/19/17 08:27 White Blood Count 8.0 TH/MM3 Red Blood Count 2.85 MIL/MM3 Hemoglobin 9.4 GM/DL Hematocrit 28.0 % Mean Corpuscular Volume 98.2 FL Mean Corpuscular Hemoglobin 33.2 PG Mean Corpuscular Hemoglobin Concent 33.8 % Red Cell Distribution Width 15.6 % Platelet Count 459 TH/MM3 Mean Platelet Volume 9.1 FL Neutrophils (%) (Auto) 75.7 % Lymphocytes (%) (Auto) 10.8 % Monocytes (%) (Auto) 9.7 % Eosinophils (%) (Auto) 2.9 % Basophils (%) (Auto) 0.9 % Neutrophils # (Auto) 6.1 TH/MM3 Lymphocytes # (Auto) 0.9 TH/MM3 Monocytes # (Auto) 0.8 TH/MM3 Eosinophils # (Auto) 0.2 TH/MM3 Basophils # (Auto) 0.1 TH/MM3 CBC Comment DIFF FINAL Differential Comment Imaging Last Impressions Hepatobiliary Scan Nuclear Medicine 12/18/17 0000 Signed Impressions: Service Date/Time: Monday, December 18, 2017 10:53 - CONCLUSION: 1. Normal uptake and excretion of radiotracer. Dimitri Bird MD Abdomen/Pelvis CT 12/17/17 0000 Signed Impressions: Service Date/Time: Sunday, December 17, 2017 15:44 - CONCLUSION: 1. There is a trace amount of free air in the upper abdomen anterior to left lobe of the liver and adjacent to the stomach. While nonspecific, this could be related to the G-tube. Suggest correlating with the clinical examination for signs of acute abdomen which would indicate a more concerning cause. 2. Moderately distended ascending and transverse colon. However, no anatomic obstruction is visualized. 3. Signs of fluid overload including bilateral pleural effusions, anasarca, periportal edema, and small volume of free fluid in the abdomen and pelvis. Uziel Troy MD Chest X-Ray 12/16/17 0600 Signed Impressions: Service Date/Time: Saturday, December 16, 2017 04:05 - CONCLUSION: 1. Stable left basilar consolidation/effusion. Possible posterior layering effusion on the right, unchanged. 2. Stable position of life support tubes Dani Titus MD Upper Extremity Ultrasound 12/15/17 0000 Signed Impressions: Service Date/Time: Friday, December 15, 2017 13:57 - CONCLUSION: Nonocclusive thrombus within left internal jugular vein. The remaining venous structures in the left upper extremity appear patent. Uziel Thomas MD Liver Ultrasound 12/12/17 0000 Signed Impressions: Service Date/Time: November 13:20 - CONCLUSION: 1. Marked gallbladder wall thickening with minimal pericholecystic fluid. No stones or sludge. 2. Small bilateral pleural effusions. Dani Titus MD Neck CTA 12/11/17 Signed Impressions: Service Date/Time: Monday, December 11, 2017 23:08 - CONCLUSION: No carotid stenosis. Ac Davis MD Head CTA 12/11/17 Signed Impressions: Service Date/Time: Monday, December 11, 2017 23:08 - CONCLUSION: 1. No large vessel stenosis or aneurysm. Ac Davis MD Brain MRI 12/11/17 Signed Impressions: Service Date/Time: Monday, December 11, 2017 11:12 - CONCLUSION: 1. Faint diffusion restriction predominately along the high right parietal convexity with minimal diffusion restriction on the left. Pattern is somewhat unusual for anoxia with the asymmetry. Possible embolic event. CTA of the cervical and intracranial vessels to be performed for further characterization. 2. Chronic changes with some periventricular small vessel ischemic demyelination. 3. Mild ventricular prominence. In the appropriate clinical setting, findings could represent normal pressure hydrocephalus. 4. Bilateral mastoiditis. Mild chronic sinus disease in the sphenoid bilaterally. Dani Titus MD Gall Bladder Ultrasound 12/03/17 Signed Impressions: Service Date/Time: Sunday, December 03, 2017 07:59 - CONCLUSION: 1. Ascites and bilateral pleural effusions. 2. Mildly distended gallbladder without evidence of wall thickening or cholelithiasis. 3. Otherwise unremarkable exam. Boo Cartwright MD Lumbar Puncture Fluoroscopy 12/02/17 0000 Signed Impressions: Service Date/Time: Saturday, December 02, 2017 15:28 - CONCLUSION: Uncomplicated fluoroscopically guided lumbar puncture. Aly Leigh MD Renal Ultrasound 11/29/17 165 Signed Impressions: Service Date/Time: Wednesday, November 29, 2017 13:16 - CONCLUSION: 1. Both kidneys are sonographically normal without hydronephrosis or nephrolithiasis. 2. Very abnormal appearance of the gallbladder with mural thickening and minimal pericholecystic fluid Dani Titus MD Head CT 4/12/18 0000 Signed Impressions: Service Date/Time: November 15:46 - CONCLUSION: 1. Ventriculomegaly suggesting central cerebral atrophy versus hydrocephalus. Clinical correlation is recommended. 2. No acute infarct, acute hemorrhage, midline shift or extra-axial fluid collections. Dev Christopher MD Procedures 12/02- lumbar puncture Objective Remarks GENERAL: 61-year-old female on ventilator via trach SKIN: Warm and dry. No rash HEAD: Atraumatic. Normocephalic. EYES: Gaze conjugate. Pupils equal and round about 4 mm and reactive to 2 mm bilaterally. No scleral icterus. No injection. Scleral edema improved. ENT: No nasal bleeding or discharge. Mucous membranes pink and moist NECK: Trachea midline. No JVD. CARDIOVASCULAR: RRR. . No murmur RESPIRATORY: B/L equal air entry GASTROINTESTINAL: NGT L nare with tube feeds running. Abdomen soft, non-tender, nondistended. Bowel sounds present.+PEG tube MUSCULOSKELETAL: Edema improved, ~ 1+ of hands and ble. NEUROLOGICAL: Pupils reactive as per above + cough + gag. Eyes open to deep central noxious stimuli. Withdraws with all extremities. Date of Insertion: Nov 28, 2017 Line: Central Venous Catheter Side: Left Location: Internal, Jugular A/P Assessment and Plan Neuro/Psych: Acute encephalopathy secondary to diabetic ketoacidosis Anxiety disorder NOS Benzodiazepine use Off sedation since 12/04. Neurology Dr. Neville Acetaminophen 650 mg by tube every 6 hours as needed fever CT brain 11/28 revealed Ventriculomegaly suggesting central cerebral atrophy versus hydrocephalus. Clinical correlation is recommended. No acute infarct, acute hemorrhage, midline shift or extra-axial fluid collections. UDS negative MRI brain 11/29 revealed mild to moderate ventriculomegaly. EEG - 12/07 bihemispheric slowing. No epileptiform features. EEG 11/28- bihemispheric slowing with some left frontocentral sharp waves and phase reversal suggesting an epileptiform abnormality and possible structural lesion in this region. No ictal pattern present. Neurology -Dr. Neville, on Cerebyx 200mg Q12. Check Dilantin level and hold level for elevated LFT's 12/02 Ophthalmology -no eye infection Lacri-Lube applied for scleral edema 12/02-lumbar puncture-negative. CSF HSV negative 12/03-cortisol level 17 ammonia level 22 12/11 EEG consistent with a severe encephalopathy. There is more prominent slowing over the right hemisphere. MRI brain done on 12/11 with ischemic changes high left parietal lobe however CTA brain with no major vessel stenosis or aneurysm. . CV: History of hypertension Shock, resolved Elevated troponin Acute systolic heart failure ejection fraction 40% NSTEMI cardiomyopathy Monitor HR and BP keep MAP>65mmHg Atorvastatin 10 mg by tube daily on hold for elevated LFT's Continue aspirin 81 mg by tube daily 2D echocardiogram revealed EF around 40%. LV increased size. Septal hypokinesis. 12/03- Cardiology has signed off Resp: Acute hypoxemic respiratory failure Hemoptysis-resolved Tobacco abuse/ongoing Iatrogenic PTX status post chest tube placement PRVC12 /450/1/, Ventilator bundle. s/p trach on 12/16 Albuterol/ipratropium aerosols every 6 hours with albuterol aerosols every 2 hours as needed dyspnea Pulm toilet, trach care Status post bronchoscopy 11/29. GI: Moderate protein energy malnutrition Elevated LFT's On tube feeds- Glucerna 1.5 with goal rate to 40 mL/h famotidine for GI prophylaxis s/p PEG tube placement 12/16 12/18 HIDA scan: unremarkable Docusate sodium/senna 1 tablet twice daily for bowel regimen 12/17 CT abdomen/pelvis from today showed trace amount of free air in the upper abdomen anterior to left lobe of the liver and adjacent to the stomach. this could be related to the G-tube. Moderately distended ascending and transverse colon. No obstruction. 12/12 US Liver: Marked gallbladder wall thickening with minimal pericholecystic fluid. No stones or sludge. Small bilateral pleural effusions. 12/03 gallbladder ultrasound -gallbladder mildly distended without evidence of wall thickening or cholelithiasis. There is ascites and pleural effusions. GI eval noted. Continue multivitamin/thiamine. thiamine via og FEN/RENAL: BRIELLE- resolved Hyponatremia Monitor renal function, I/O's, electrolytes replacement per protocol. d/c IVF Renal ultrasound revealed no medical renal disease. Endo: Insulin-dependent diabetes mellitus type 1 uncontrolled Diabetic ketoacidosis - resolved Originally, patient received 3 L normal saline in the ED along with 3 refills and bicarbonate, 1 ampule of calcium gluconate. Beta hydroxybutyrate cleared 11/29 Insulin pump was disconnected 11/28. According to sister Evelyn Obrien, patient had received a new insulin pump within the past 48 hours [employer]. She has no history of DKA in the past to her knowledge TSH 0.38 Continue SSI Novulog medium protocol with accucheck every 4 hours maintain euglycemia Levemir 7 q12 Heme: Leukocytosis- Resolved Macrocytic anemia Monitor CBC daily. 12/03 transfused 1 unit of packed red blood cells ID: Community-acquired versus aspiration BC x2, UA (-) inf A/B negative 11/29 S/P bronchoscopy with sample sent from left lower lobe 11/29 Sputum (BAL)-E.coli, pansensitive ID is following, Dr. Childs On Rocephin/ oral fluconazole, ? d/c Diflucan for elevated LFT's. Will discuss with ID. Vancomycin has been discontinued 12/06 per ID 12/02-lumbar puncture-negative Access PIV in place Prophylaxis -GI -famotidine for stress ulcer prophylaxis -DVT -SCD/continue heparin SQ Doppler US UE: Non-occlusive thrombus left IJ vein Palliative care is following Level 3 Edouard Mayo MD December 19, 2017 09:43
--- NOTE | 2017-12-19 09:46 | HHI.PR ---
Addendum to Inpatient Note Additional Information HIDA negative AST/ALT gojn g down Alk phos up to 1200 - will dc Rocephin, fluconazol dw Anh Ruiz MD December 19, 2017 09:46
[2017-12-19] MEDS: ASPIRIN 81 MG CHEW TAB CHEW SCH (09:51)
[2017-12-19] MEDS: MULTIVITAMIN TAB PO SCH (09:51)
[2017-12-19] MEDS: FAMOTIDINE 20 MG TAB NG SCH ×2 (09:53→21:04)
[2017-12-19] MEDS: THIAMINE HCL 100 MG TAB OG-TUBE SCH (09:53)
[2017-12-19] MEDS: INSULIN DETEMIR 100 UNITS/ML VIAL SQ SCH ×2 (09:53→21:04)
[2017-12-19] MEDS: ARTIFICIAL TEARS OPTH OINT 3.5 APPLIC/3.5 GM TUBO EACH EYE SCH ×3 (09:55→21:04)
[2017-12-19] MEDS: SODIUM CHLORIDE 0.9% FLUSH 10 ML FLUSH IV FLUSH SCH ×3 (09:55→21:05)
[2017-12-19 10:04] LABS: ALBUMIN 1.8 GM/DL (3.4-5.0); ALT (GPT) 187 U/L (10-53); AST (GOT) 131 U/L (15-37); BICARBONATE 25.5 MEQ/L (21.0-32.0); CHLORIDE 100 MEQ/L (98-107); CREATININE 0.45 MG/DL (0.50-1.00); GLOMERULAR FILTRATION RATE 141 ML/MIN (>89); GLUCOSE,RANDOM 275 MG/DL (74-106); SODIUM (NA) 135 MEQ/L (136-145)
[2017-12-19 10:08] LABS: BLOOD UREA NITROGEN 13 MG/DL (7-18); TOTAL BILIRUBIN ADULT 0.2 MG/DL (0.2-1.0); TOTAL PROTEIN 5.4 GM/DL (6.4-8.2)
[2017-12-19 10:23] LABS: ALKALINE PHOSPHATASE 1179 U/L (45-117)
[2017-12-19] MEDS: RESP: ALBUTEROL 2.5 MG/IPRATROPIUM 0.5 MG NEB (SCH) NEB ×3 (12:09→20:14)
--- NOTE | 2017-12-19 12:22 | HHI.GIFU ---
Subjective Remarks Pt resting in bed, on vent. (Lanette Spears) Objective Vitals I&O Vital Signs Date Time Temp Pulse Resp B/P (MAP) Pulse Ox O2 Delivery O2 Flow Rate FiO2 12/19/17 12:10 100 35 12/19/17 08:00 35 12/19/17 08:00 97 35 12/19/17 06:00 69 12/19/17 06:00 77 13 144/68 (93) 100 12/19/17 05:00 82 15 135/72 (93) 100 12/19/17 04:08 100 35 12/19/17 04:00 75 12/19/17 04:00 98.2 80 14 144/73 (96) 100 12/19/17 04:00 35 12/19/17 03:00 76 16 97 12/19/17 02:00 77 12/19/17 02:00 77 16 138/65 (89) 98 12/19/17 01:01 84 14 140/69 (92) 97 12/19/17 00:16 99 35 12/19/17 00:00 84 12/19/17 00:00 35 12/19/17 00:00 98.2 73 12 147/67 (93) 99 12/18/17 23:00 76 12 137/71 (93) 99 12/18/17 22:00 74 12 138/68 (91) 98 12/18/17 21:00 72 13 150/73 (98) 99 12/18/17 20:00 98.0 67 12 145/65 (91) 99 12/18/17 20:00 35 12/18/17 20:00 75 12/18/17 19:58 99 35 12/18/17 18:00 75 12/18/17 17:37 97.9 67 12 129/71 (90) 98 12/18/17 16:00 82 12/18/17 15:54 98 35 12/18/17 14:00 67 12/18/17 12:46 99 35 I/O 12/18/17 12/18/17 12/18/17 12/19/17 12/19/17 12/19/17 07:00 15:00 23:00 07:00 15:00 23:00 Intake Total 555 ml 100 ml 468 ml Output Total 450 ml 400 ml 450 ml Balance 105 ml -300 ml 18 ml IV Total 100 ml Tube Feeding 475 ml 368 ml Other 80 ml 100 ml Output Urine Total 450 ml 400 ml 450 ml # Bowel Movements 1 1 Laboratory Laboratory Tests Test 12/19/17 06:34 12/19/17 08:27 White Blood Count 8.0 Red Blood Count 2.85 Hemoglobin 9.4 Hematocrit 28.0 Mean Corpuscular Volume 98.2 Mean Corpuscular Hemoglobin 33.2 Mean Corpuscular Hemoglobin Concent 33.8 Red Cell Distribution Width 15.6 Platelet Count 459 Mean Platelet Volume 9.1 Neutrophils (%) (Auto) 75.7 Lymphocytes (%) (Auto) 10.8 Monocytes (%) (Auto) 9.7 Eosinophils (%) (Auto) 2.9 Basophils (%) (Auto) 0.9 Neutrophils # (Auto) 6.1 Lymphocytes # (Auto) 0.9 Monocytes # (Auto) 0.8 Eosinophils # (Auto) 0.2 Basophils # (Auto) 0.1 CBC Comment DIFF FINAL Differential Comment Blood Urea Nitrogen 13 Creatinine 0.45 Random Glucose 275 Total Protein 5.4 Albumin 1.8 Calcium Level 8.0 Alkaline Phosphatase 1179 Aspartate Amino Transf (AST/SGOT) 131 Alanine Aminotransferase (ALT/SGPT) 187 Total Bilirubin 0.2 Sodium Level 135 Potassium Level 4.5 Chloride Level 100 Carbon Dioxide Level 25.5 Anion Gap 10 Estimat Glomerular Filtration Rate 141 Phenytoin (Dilantin) Level 13.1 Hepatitis A IgM Antibody NONREACTIVE Hepatitis B Surface Antigen NONREACTIVE Hepatitis B Core IgM Antibody NONREACTIVE Hepatitis C IgG Antibody NONREACTIVE Date/Time Source Procedure Growth Status 12/08/17 06:13 Blood Peripheral Aerobic Blood Culture - Final NO GROWTH IN 5 DAYS Complete 12/08/17 06:13 Blood Peripheral Anaerobic Blood Culture - Final NO GROWTH IN 5 DAYS Complete 12/02/17 15:29 Cerebral Spinal Fluid Lumbar Puncture Gram Stain - Final Complete 12/02/17 15:29 Cerebral Spinal Fluid Lumbar Puncture CSF Culture - Final NO GROWTH IN 72 HOURS Complete 12/08/17 06:00 Sputum Nasal Tracheal Aspirate Gram Stain - Final Complete 12/08/17 06:00 Sputum Culture - Final Escherichia Coli Complete 12/08/17 06:09 Urine Catheterized Urine Urine Culture - Final Anna Glabrata Complete Imaging Last Impressions Hepatobiliary Scan Nuclear Medicine 12/18/17 0000 Signed Impressions: Service Date/Time: Monday, December 18, 2017 10:53 - CONCLUSION: 1. Normal uptake and excretion of radiotracer. Dimitri Bird MD ADDENDUM: The there is a air in the report under the medication sections it should read cholecystokinin was administered by slow infusion over 8 minutes beginning at the 60 minute jyoti. Dimitri Bird MD Abdomen/Pelvis CT 12/17/17 0000 Signed Impressions: Service Date/Time: Sunday, December 17, 2017 15:44 - CONCLUSION: 1. There is a trace amount of free air in the upper abdomen anterior to left lobe of the liver and adjacent to the stomach. While nonspecific, this could be related to the G-tube. Suggest correlating with the clinical examination for signs of acute abdomen which would indicate a more concerning cause. 2. Moderately distended ascending and transverse colon. However, no anatomic obstruction is visualized. 3. Signs of fluid overload including bilateral pleural effusions, anasarca, periportal edema, and small volume of free fluid in the abdomen and pelvis. Uziel Troy MD Chest X-Ray 12/16/17 0600 Signed Impressions: Service Date/Time: Saturday, December 16, 2017 04:05 - CONCLUSION: 1. Stable left basilar consolidation/effusion. Possible posterior layering effusion on the right, unchanged. 2. Stable position of life support tubes Dani Titus MD Upper Extremity Ultrasound 12/15/17 0000 Signed Impressions: Service Date/Time: Friday, December 15, 2017 13:57 - CONCLUSION: Nonocclusive thrombus within left internal jugular vein. The remaining venous structures in the left upper extremity appear patent. Uziel Thomas MD Liver Ultrasound 12/12/17 0000 Signed Impressions: Service Date/Time: November 13:20 - CONCLUSION: 1. Marked gallbladder wall thickening with minimal pericholecystic fluid. No stones or sludge. 2. Small bilateral pleural effusions. Dani Titus MD Neck CTA 12/11/17 0000 Signed Impressions: Service Date/Time: Monday, December 11, 2017 23:08 - CONCLUSION: No carotid stenosis. Ac Davis MD Head CTA 12/11/17 0000 Signed Impressions: Service Date/Time: Monday, December 11, 2017 23:08 - CONCLUSION: 1. No large vessel stenosis or aneurysm. Ac Davis MD Brain MRI 12/11/17 0000 Signed Impressions: Service Date/Time: Monday, December 11, 2017 11:12 - CONCLUSION: 1. Faint diffusion restriction predominately along the high right parietal convexity with minimal diffusion restriction on the left. Pattern is somewhat unusual for anoxia with the asymmetry. Possible embolic event. CTA of the cervical and intracranial vessels to be performed for further characterization. 2. Chronic changes with some periventricular small vessel ischemic demyelination. 3. Mild ventricular prominence. In the appropriate clinical setting, findings could represent normal pressure hydrocephalus. 4. Bilateral mastoiditis. Mild chronic sinus disease in the sphenoid bilaterally. Dani Titus MD Gall Bladder Ultrasound 12/03/17 0000 Signed Impressions: Service Date/Time: Sunday, December 03, 2017 07:59 - CONCLUSION: 1. Ascites and bilateral pleural effusions. 2. Mildly distended gallbladder without evidence of wall thickening or cholelithiasis. 3. Otherwise unremarkable exam. Boo Cartwirght MD Lumbar Puncture Fluoroscopy 12/02/17 0000 Signed Impressions: Service Date/Time: Saturday, December 02, 2017 15:28 - CONCLUSION: Uncomplicated fluoroscopically guided lumbar puncture. Aly Leigh MD Renal Ultrasound 11/29/17 1656 Signed Impressions: Service Date/Time: Wednesday, November 29, 2017 13:16 - CONCLUSION: 1. Both kidneys are sonographically normal without hydronephrosis or nephrolithiasis. 2. Very abnormal appearance of the gallbladder with mural thickening and minimal pericholecystic fluid Dani Titus MD Head CT 11/28/17 0000 Signed Impressions: Service Date/Time: November 15:46 - CONCLUSION: 1. Ventriculomegaly suggesting central cerebral atrophy versus hydrocephalus. Clinical correlation is recommended. 2. No acute infarct, acute hemorrhage, midline shift or extra-axial fluid collections. Dev Christopher MD Physical Exam HEENT:normocephalic, atraumatic, trach CHEST : CTA CARDIAC: RRR ABDOMEN: Soft,mildly distended, no hepatosplenomegaly; BS faint. PEG site clean EXTREMITIES: No clubbing, cyanosis, trace edema. SKIN: Normal; no rash; no jaundice. WOOD BORER: unresponsive (Lanette Spears) Assessment and Plan Plan Plan Elevated liver function tests, improving slowly, most likely cholecystitis antibiotic, or it could be medication related, Overall guarded prognosis Continue monitoring LFTs 12/15/2017 no significant change, liver function tests are more elevated, most likely cholecystitis or medication related, will continue monitoring If family decided to have PEG tube this can be done tomorrow 12/16/2017 liver function tests slightly improved today, PEG tube was placed IMPRESSION: Mild to moderate duodenitis otherwise normal upper endoscopy PEG tube was placed in the left upper quadrant, 20 [place] 1 g of Ancef was given during the procedure 12/18/17 resting in bed. s/p PEG, trach. abd mildly distended. now with elevated LFTs trending up. ?congestion vs DILI CT 12/17/17 showed moderately distended ascending and transverse colon, no obstruction, fluid overload. HIDA is pending 12/19/17 LFTs trending down. HIDA neg. ALP iso enzymes pending. LFT elevation 2 /2 congestion vs DILI? ?fluconazole, fosphenytoin could affect liver, both were recently held. d/w RN, palliative. pt possibly having some purposeful hand squeezes. PLAN: - await ALP iso enzymes - monitor LFTs - TF per nutrition - supportive care pt seen by myself and Dr Love and this note is on his behalf (Lanette Spears) Plan Patient was seen and examined, agree with above note, labs so far negative, we will see the remaining of the labs, most likely medication related (Verenice Love MD) Lanette Spears December 19, 2017 12:21 Verenice Love MD December 19, 2017 20:30
[2017-12-20] VITALS (18 sets, daily range): BP systolic 126–152; BP diastolic 62–70; PULSE 63–92; RESP 12–19; TEMP 97.9–98.6; O2SAT 99–100
[2017-12-20] MEDS: HEPARIN SODIUM - SQ 10,000 UNITS/ML VIAL SQ SCH ×3 (02:00→17:40)
[2017-12-20] MEDS: RESP: ALBUTEROL 2.5 MG/IPRATROPIUM 0.5 MG NEB (SCH) NEB ×4 (03:50→20:11)
[2017-12-20] MEDS: CHLORHEXIDINE GLUCONATE 2 % 1 PACK (2 CLOTHS) TOP SCH (04:00)
[2017-12-20] MEDS: INSULIN ASPART SUPPLEMENTAL SCALE SQ SCH ×6 (04:00→21:21)
[2017-12-20 05:52] LABS: AUTOMATED NEUTROPHIL # 5.3 TH/MM3 (1.8-7.7); BASOPHIL % 0.5 % (0.0-2.0); EOSINOPHIL # 0.3 TH/MM3 (0-0.4); EOSINOPHIL % 3.6 % (0.0-4.0); HEMATOCRIT 28.5 % (35.0-46.0); HEMOGLOBIN 9.7 GM/DL (11.6-15.3); LYMPH % 16.5 % (9.0-44.0); LYMPHOCYTE # 1.3 TH/MM3 (1.0-4.8); MEAN CELL VOLUME 97.9 FL (80.0-100.0); MEAN CORPUSCULAR HEMOGLOBIN 33.2 PG (27.0-34.0); MEAN CORPUSCULAR HGB CONC 33.9 % (32.0-36.0); MONO % 9.7 % (0.0-8.0); MONOCYTE # 0.7 TH/MM3 (0-0.9); NEUT % 69.7 % (16.0-70.0); PLATELET COUNT 464 TH/MM3 (150-450); RED BLOOD COUNT 2.91 MIL/MM3 (4.00-5.30); RED CELL DISTRIBUTION WIDTH 15.2 % (11.6-17.2); WHITE BLOOD COUNT 7.6 TH/MM3 (4.0-11.0)
[2017-12-20 07:06] LABS: ALBUMIN 2.1 GM/DL (3.4-5.0); ALKALINE PHOSPHATASE 1350 U/L (45-117); ALT (GPT) 186 U/L (10-53); AST (GOT) 129 U/L (15-37); BICARBONATE 26.9 MEQ/L (21.0-32.0); BLOOD UREA NITROGEN 12 MG/DL (7-18); CALCIUM 8.6 MG/DL (8.5-10.1); CHLORIDE 98 MEQ/L (98-107); CREATININE 0.53 MG/DL (0.50-1.00); GLOMERULAR FILTRATION RATE 117 ML/MIN (>89); GLUCOSE,RANDOM 118 MG/DL (74-106); SODIUM (NA) 136 MEQ/L (136-145); TOTAL BILIRUBIN ADULT 0.3 MG/DL (0.2-1.0); TOTAL PROTEIN 6.2 GM/DL (6.4-8.2)
[2017-12-20] MEDS: THIAMINE HCL 100 MG TAB OG-TUBE SCH (08:35)
[2017-12-20] MEDS: MULTIVITAMIN TAB PO SCH (08:35)
[2017-12-20] MEDS: ASPIRIN 81 MG CHEW TAB CHEW SCH (08:35)
[2017-12-20] MEDS: FAMOTIDINE 20 MG TAB NG SCH ×2 (08:35→21:21)
[2017-12-20] MEDS: INSULIN DETEMIR 100 UNITS/ML VIAL SQ SCH ×2 (08:36→21:22)
[2017-12-20] MEDS: SODIUM CHLORIDE 0.9% FLUSH 10 ML FLUSH IV FLUSH SCH ×3 (08:36→21:22)
[2017-12-20] MEDS: CHLORHEXIDINE 0.12% (ORAL KIT) 15 ML CUP MT SCH ×2 (08:36→21:22)
--- NOTE | 2017-12-20 08:40 | HHI.CCPN ---
Subjective Remarks/Hospital Course This is a 51-year-old female. Date of admission 11/28/2017. Past medical history includes diabetes mellitus type 1 uncontrolled insulin- dependent with retinopathy on home insulin pump, hypertension, allergic rhinitis and chronic benzodiazepine use. She also has history of breast cancer on raloxifene she originally presented to [facility] ED During the workup, patient was noted to have a blood sugar of 808. Elevated acetone. Sodium 135. Potassium 6.0. Ferritin 2.1. Leukocytosis 25,000. Macrocytic anemia. UA negative for infectious etiology. She was bolused with 3 L of 0.9% NaCl IV fluid bolus. She is received 3 ampules of sodium bicarbonate and 1 g calcium gluconate. Chest x-ray post procedure revealed the CT scan of the head is read by the radiologist as ventriculomegaly but otherwise no acute findings. 11/29: Patient had nonrebreather off all night. PTX now 8 mm. Yells "Help me " "I don't know" Gap has closed, will transition back to SQ insulin if able to pass swallow. Replacing lytes. 11/30: Patient opens eyes to voice. Leftward gaze. Frequent blinking. Withdraws to stimulation bilateral lower extremities. T-max 99.5. Remains on norepinephrine and phenylephrine drips. MRI brain revealed ventriculomegaly. No acute signs of CVA. Echocardiogram EF 40%. 12/01: Afebrile. Patient remains off sedation approximately 24 hours nonresponsive. EEG in process. BAL revealed gram-negative rods the patient continues on Zosyn. The patient remains on vasopressors norepinephrine, vasopressin, and phenylephrine. Versed infusion restarted secondary to seizure activity noted on repeat EEG this a.m.. 12/02: Afebrile. The patient is scheduled for lumbar puncture this a.m., INR 1.0 patient has been off subcu heparin approximately 3 days. The patient continues on Versed and fentanyl infusions to maintain ventilator synchrony and avoidance of subclinical seizures which were noted on the EEG yesterday. The patient continues on multiple vasopressors to include norepinephrine and phenylephrine and vasopressin. Vasopressin currently being weaned off. The patient continues to have persistent leukocytosis though it is slightly downtrending plan for ID consult today appreciate recommendations. Bronchial washings resulted E. coli, currently patient continues on Zosyn. Patient was noted to have a positive fluid balance yesterday the patient received 20 mg of Lasix with adequate diuresis the patient noted to have a sodium level slightly decreased at 135 IV fluids mixed in 0.9 normal saline. 12/03: No acute events overnight lumbar puncture performed yesterday results pending. Dilantin level therapeutic. Phenobarbital level pending. Patient off vasopressin 24 hours. Phenylephrine currently being weaned off. Patient noted to be anemic 1 unit packed cells will be transfused today no pneumothorax chest tube now placed to waterseal today. 12/04: T-max 99.4. Repeat EEG performed today. Patient now withdrawing to pain 4 extremities, and open eyes to painful stimulus. Patient noted to move bilateral lower extremities 1 this shift. Patient tolerating tube feeds, overbreathing vent will begin CPAP trials in the a.m. if clinically stable. Phenylephrine completely discontinued overnight. Norepinephrine has been decreased to 3 mics/min. hemoglobin stable. 12/05: Afebrile. Patient was weaned off of norepinephrine last p.m.. The patient has been off sedation for greater than 48 hours, no change in neurological status opens eyes to deep stimulation, moves extremities 4 withdrawing to painful stimuli. CPAP trials initiated this a.m. the patient tolerated CPAP for approximately 6.5 hours. Chest x-ray remains unchanged no pneumo thorax, plan for removal of chest tube this evening. 12/06 No events overnight. On no sedation. Afebrile. unresponsive s/p removal chest tube yesterday.. 12/07 versed drip off since 12/04.. Eyes open to noxious stimuli, spontaneously moved R hand, withdraws x4. Temp max 99.3. WBC 11.2 today. Remains off pressors. On CPAP 05/23 and tolerating Subjective: 12/08. Temp max 100.4 overnight. Blood, urine, sputum cultures were sent. White blood cell count 13 this morning. Blood pressure was down to 84/46 with map of 56 this morning. Diuresed nearly 4 L yesterday with Lasix 40 IV q12, creatinine increased today. Tolerating tube feeds. Liquid stool x3 overnight. Apneic during multiple attempts at CPAP this morning. No neuro change. EEG bilateral slowing. Bihemispheric abnormalities. No epileptiform features 12/09: Remains encephalopathic, orally intubated on mechanical ventilation. Tolerating tube feeds. Not on any sedation. 12/10: Remains encephalopathic, orally intubated on mechanical ventilation. Tolerating tube feeds. Minimal eye opening with painful stimuli however extremely poor gag response. 12/11: Remains encephalopathic, orally intubated on mechanical ventilation. Tolerating tube feeds. Awaiting MRI/ EEG. 12/12: Remains encephalopathic, orally intubated on mechanical ventilation. No significant improvement in neurologic status noted. Tolerating tube feeds. EEG very abnormal more on the right. MRI brain done yesterday with high parietal lobe ischemic changes however CTA with no major vessel stenosis or aneurysm. 12/13 No events overnight. Remains intubated unresponsive. Afebrile. On no drips. 12/14: Remains encephalopathic, orally intubated on mechanical ventilation. 12/15:The patient tolerated CPAP trials for approximately 6 hours yesterday. The patient still remains encephalopathic. Tentative plan for possible PEG placement and tracheostomy, pending family decision. 12/16 Patient was transferred from PO yesterday for trach and PEG tube placement today. Afebrile. 12/17 Patient s/p trach and PEG tube placement yesterday. Afebrile. On no sedation. 12/18 No events overnight. Afebrile, for HIDA scan today.Tolerated CPAP all day yesterday 12/19 Patient remains on ventilator via trach. HIDA scan yesterday unremarkable. Afebrile. 12/20 No events overnight. Afebrile. Objective Vital Signs Date Time Temp Pulse Resp B/P (MAP) Pulse Ox O2 Delivery O2 Flow Rate FiO2 12/20/17 07:45 100 35 12/20/17 06:00 77 12/20/17 04:00 98.6 12 152/69 (96) Intake and Output 12/20/17 12/20/17 12/21/17 08:00 16:00 00:00 Intake Total 559 ml Output Total 450 ml Balance 109 ml Result Diagram: 12/20/17 0403 12/20/17 0403 Other Results Laboratory Tests Test 12/20/17 04:03 White Blood Count 7.6 TH/MM3 Red Blood Count 2.91 MIL/MM3 Hemoglobin 9.7 GM/DL Hematocrit 28.5 % Mean Corpuscular Volume 97.9 FL Mean Corpuscular Hemoglobin 33.2 PG Mean Corpuscular Hemoglobin Concent 33.9 % Red Cell Distribution Width 15.2 % Platelet Count 464 TH/MM3 Mean Platelet Volume 9.0 FL Neutrophils (%) (Auto) 69.7 % Lymphocytes (%) (Auto) 16.5 % Monocytes (%) (Auto) 9.7 % Eosinophils (%) (Auto) 3.6 % Basophils (%) (Auto) 0.5 % Neutrophils # (Auto) 5.3 TH/MM3 Lymphocytes # (Auto) 1.3 TH/MM3 Monocytes # (Auto) 0.7 TH/MM3 Eosinophils # (Auto) 0.3 TH/MM3 Basophils # (Auto) 0.0 TH/MM3 CBC Comment DIFF FINAL Differential Comment Blood Urea Nitrogen 12 MG/DL Creatinine 0.53 MG/DL Random Glucose 118 MG/DL Total Protein 6.2 GM/DL Albumin 2.1 GM/DL Calcium Level 8.6 MG/DL Alkaline Phosphatase 1350 U/L Aspartate Amino Transf (AST/SGOT) 129 U/L Alanine Aminotransferase (ALT/SGPT) 186 U/L Total Bilirubin 0.3 MG/DL Sodium Level 136 MEQ/L Potassium Level 4.4 MEQ/L Chloride Level 98 MEQ/L Carbon Dioxide Level 26.9 MEQ/L Anion Gap 11 MEQ/L Estimat Glomerular Filtration Rate 117 ML/MIN Imaging Last Impressions Hepatobiliary Scan Nuclear Medicine 12/18/17 0000 Signed Impressions: Service Date/Time: Monday, December 18, 2017 10:53 - CONCLUSION: 1. Normal uptake and excretion of radiotracer. Dimitri Bird MD ADDENDUM: The there is a air in the report under the medication sections it should read cholecystokinin was administered by slow infusion over 8 minutes beginning at the 60 minute jyoti. Dimitri Bird MD Abdomen/Pelvis CT 12/17/17 0000 Signed Impressions: Service Date/Time: Sunday, December 17, 2017 15:44 - CONCLUSION: 1. There is a trace amount of free air in the upper abdomen anterior to left lobe of the liver and adjacent to the stomach. While nonspecific, this could be related to the G-tube. Suggest correlating with the clinical examination for signs of acute abdomen which would indicate a more concerning cause. 2. Moderately distended ascending and transverse colon. However, no anatomic obstruction is visualized. 3. Signs of fluid overload including bilateral pleural effusions, anasarca, periportal edema, and small volume of free fluid in the abdomen and pelvis. Uziel Troy MD Chest X-Ray 12/16/17 0600 Signed Impressions: Service Date/Time: Saturday, December 16, 2017 04:05 - CONCLUSION: 1. Stable left basilar consolidation/effusion. Possible posterior layering effusion on the right, unchanged. 2. Stable position of life support tubes Dani Titus MD Upper Extremity Ultrasound 12/15/17 0000 Signed Impressions: Service Date/Time: Friday, December 15, 2017 13:57 - CONCLUSION: Nonocclusive thrombus within left internal jugular vein. The remaining venous structures in the left upper extremity appear patent. Uziel Thomas MD Liver Ultrasound 12/12/17 0000 Signed Impressions: Service Date/Time: November 13:20 - CONCLUSION: 1. Marked gallbladder wall thickening with minimal pericholecystic fluid. No stones or sludge. 2. Small bilateral pleural effusions. Dani Titus MD Neck CTA 12/11/17 0000 Signed Impressions: Service Date/Time: Monday, December 11, 2017 23:08 - CONCLUSION: No carotid stenosis. Ac Davis MD Head CTA 12/11/17 0000 Signed Impressions: Service Date/Time: Monday, December 11, 2017 23:08 - CONCLUSION: 1. No large vessel stenosis or aneurysm. Ac Davis MD Brain MRI 12/11/17 0000 Signed Impressions: Service Date/Time: Monday, December 11, 2017 11:12 - CONCLUSION: 1. Faint diffusion restriction predominately along the high right parietal convexity with minimal diffusion restriction on the left. Pattern is somewhat unusual for anoxia with the asymmetry. Possible embolic event. CTA of the cervical and intracranial vessels to be performed for further characterization. 2. Chronic changes with some periventricular small vessel ischemic demyelination. 3. Mild ventricular prominence. In the appropriate clinical setting, findings could represent normal pressure hydrocephalus. 4. Bilateral mastoiditis. Mild chronic sinus disease in the sphenoid bilaterally. Dani Titus MD Gall Bladder Ultrasound 12/03/17 0000 Signed Impressions: Service Date/Time: Sunday, December 03, 2017 07:59 - CONCLUSION: 1. Ascites and bilateral pleural effusions. 2. Mildly distended gallbladder without evidence of wall thickening or cholelithiasis. 3. Otherwise unremarkable exam. Boo Cartwright MD Lumbar Puncture Fluoroscopy 12/02/17 0000 Signed Impressions: Service Date/Time: Saturday, December 02, 2017 15:28 - CONCLUSION: Uncomplicated fluoroscopically guided lumbar puncture. Aly Leigh MD Renal Ultrasound 11/29/17 1656 Signed Impressions: Service Date/Time: Wednesday, November 29, 2017 13:16 - CONCLUSION: 1. Both kidneys are sonographically normal without hydronephrosis or nephrolithiasis. 2. Very abnormal appearance of the gallbladder with mural thickening and minimal pericholecystic fluid Dani Titus MD Head CT 11/28/17 0000 Signed Impressions: Service Date/Time: November 15:46 - CONCLUSION: 1. Ventriculomegaly suggesting central cerebral atrophy versus hydrocephalus. Clinical correlation is recommended. 2. No acute infarct, acute hemorrhage, midline shift or extra-axial fluid collections. Dev Christopher MD Procedures 12/02- lumbar puncture Objective Remarks GENERAL: 61-year-old female on ventilator via trach SKIN: Warm and dry. No rash HEAD: Atraumatic. Normocephalic. EYES: Gaze conjugate. Pupils equal and round about 4 mm and reactive to 2 mm bilaterally. No scleral icterus. No injection. Scleral edema improved. ENT: No nasal bleeding or discharge. Mucous membranes pink and moist NECK: Trachea midline. No JVD. CARDIOVASCULAR: RRR. . No murmur RESPIRATORY: B/L equal air entry GASTROINTESTINAL: NGT L nare with tube feeds running. Abdomen soft, non-tender, nondistended. Bowel sounds present.+PEG tube MUSCULOSKELETAL: Edema improved, ~ 1+ of hands and ble. NEUROLOGICAL: Pupils reactive as per above + cough + gag. Eyes open to deep central noxious stimuli. Withdraws with all extremities. Date of Insertion: Nov 28, 2017 Line: Central Venous Catheter Side: Left Location: Internal, Jugular A/P Assessment and Plan Neuro/Psych: Acute encephalopathy secondary to diabetic ketoacidosis Anxiety disorder NOS Benzodiazepine use Off sedation since 12/04. Neurology Dr. Neville Acetaminophen 650 mg by tube every 6 hours as needed fever CT brain 11/28 revealed Ventriculomegaly suggesting central cerebral atrophy versus hydrocephalus. Clinical correlation is recommended. No acute infarct, acute hemorrhage, midline shift or extra-axial fluid collections. UDS negative MRI brain 11/29 revealed mild to moderate ventriculomegaly. EEG - 12/07 bihemispheric slowing. No epileptiform features. EEG 11/28- bihemispheric slowing with some left frontocentral sharp waves and phase reversal suggesting an epileptiform abnormality and possible structural lesion in this region. No ictal pattern present. Neurology -Dr. Neville, on Cerebyx 200mg Q12. Check Dilantin level and hold level for elevated LFT's 12/02 Ophthalmology -no eye infection Lacri-Lube applied for scleral edema 12/02-lumbar puncture-negative. CSF HSV negative 12/03-cortisol level 17 ammonia level 22 12/11 EEG consistent with a severe encephalopathy. There is more prominent slowing over the right hemisphere. MRI brain done on 12/11 with ischemic changes high left parietal lobe however CTA brain with no major vessel stenosis or aneurysm. . CV: History of hypertension Shock, resolved Elevated troponin Acute systolic heart failure ejection fraction 40% NSTEMI cardiomyopathy Monitor HR and BP keep MAP>65mmHg Atorvastatin 10 mg by tube daily on hold for elevated LFT's Continue aspirin 81 mg by tube daily 2D echocardiogram revealed EF around 40%. LV increased size. Septal hypokinesis. 12/03- Cardiology has signed off Resp: Acute hypoxemic respiratory failure Hemoptysis-resolved Tobacco abuse/ongoing Iatrogenic PTX status post chest tube placement ACV 12 /450/08/23/39, Ventilator bundle. s/p trach on 12/16 Albuterol/ipratropium aerosols every 6 hours with albuterol aerosols every 2 hours as needed dyspnea Pulm toilet, trach care Status post bronchoscopy 11/29. SBT/TP's daily as harsha GI: Moderate protein energy malnutrition Elevated LFT's On tube feeds- Glucerna 1.5 @ 40 mL/h famotidine for GI prophylaxis s/p PEG tube placement 12/16 12/18 HIDA scan: unremarkable Docusate sodium/senna 1 tablet twice daily for bowel regimen 12/17 CT abdomen/pelvis from today showed trace amount of free air in the upper abdomen anterior to left lobe of the liver and adjacent to the stomach. this could be related to the G-tube. Moderately distended ascending and transverse colon. No obstruction. 12/12 US Liver: Marked gallbladder wall thickening with minimal pericholecystic fluid. No stones or sludge. Small bilateral pleural effusions. 12/03 gallbladder ultrasound -gallbladder mildly distended without evidence of wall thickening or cholelithiasis. There is ascites and pleural effusions. GI eval noted. Continue multivitamin/thiamine. thiamine via og FEN/RENAL: BRIELLE- resolved Hyponatremia Monitor renal function, I/O's, electrolytes replacement per protocol. Renal ultrasound revealed no medical renal disease. Endo: Insulin-dependent diabetes mellitus type 1 uncontrolled Diabetic ketoacidosis - resolved Originally, patient received 3 L normal saline in the ED along with 3 refills and bicarbonate, 1 ampule of calcium gluconate. Beta hydroxybutyrate cleared 11/29 Insulin pump was disconnected 11/28. According to sister Evelyn Obrien, patient had received a new insulin pump within the past 48 hours [employer]. She has no history of DKA in the past to her knowledge TSH 0.38 Continue SSI Novulog medium protocol with accucheck every 4 hours maintain euglycemia Levemir 7 q12 Heme: Leukocytosis- Resolved Macrocytic anemia Monitor CBC daily. 12/03 transfused 1 unit of packed red blood cells ID: Community-acquired versus aspiration BC x2, UA (-) inf A/B negative 11/29 S/P bronchoscopy with sample sent from left lower lobe 11/29 Sputum (BAL)-E.coli, pansensitive ID is following, Dr. Childs Off abx- monitor for signs of infections ( Fever, WBC) 12/02-lumbar puncture-negative Access PIV in place Prophylaxis -GI -famotidine for stress ulcer prophylaxis -DVT -SCD/continue heparin SQ Doppler US UE: Non-occlusive thrombus left IJ vein Palliative care is following Level 2 Edouard Mayo MD December 20, 2017 08:40
[2017-12-20] MEDS: ARTIFICIAL TEARS OPTH OINT 3.5 APPLIC/3.5 GM TUBO EACH EYE SCH ×4 (09:00→21:00)
--- NOTE | 2017-12-20 09:37 | HHI.GIFU ---
Subjective Remarks Pt remains mechanically ventilated Does not open her eyes during my exam TF- Glucerna 1.5 running at 40 mL/hr (Karina Flower) Objective Vitals I&O Vital Signs Date Time Temp Pulse Resp B/P (MAP) Pulse Ox O2 Delivery O2 Flow Rate FiO2 12/20/17 08:00 98.2 75 12 136/65 (88) 100 12/20/17 08:00 35 12/20/17 08:00 80 12/20/17 07:45 100 35 12/20/17 06:00 77 12/20/17 04:00 98.6 74 12 152/69 (96) 99 12/20/17 04:00 35 12/20/17 04:00 74 12/20/17 03:51 100 35 12/20/17 02:00 81 12/20/17 01:36 100 35 12/20/17 00:00 74 12/20/17 00:00 35 12/20/17 00:00 98.4 74 13 126/64 (84) 100 12/19/17 22:10 100 35 12/19/17 22:00 82 12/19/17 20:11 100 35 12/19/17 20:00 98.7 85 15 130/65 (86) 100 12/19/17 20:00 85 12/19/17 20:00 35 12/19/17 18:00 72 12/19/17 16:19 100 35 12/19/17 16:00 35 12/19/17 16:00 72 12/19/17 16:00 98.2 72 14 128/65 (86) 100 12/19/17 14:00 75 12/19/17 12:10 100 35 12/19/17 12:00 71 12/19/17 12:00 35 12/19/17 12:00 98.5 71 16 131/65 (87) 100 12/19/17 10:00 79 I/O 12/19/17 12/19/17 12/19/17 12/20/17 12/20/17 12/20/17 07:00 15:00 23:00 07:00 15:00 23:00 Intake Total 468 ml 1224 ml 559 ml Output Total 450 ml 950 ml 450 ml Balance 18 ml 274 ml 109 ml Tube Feeding 368 ml 984 ml 439 ml Other 100 ml 240 ml 120 ml Output Urine Total 450 ml 950 ml 450 ml # Bowel Movements 1 6 2 Laboratory Laboratory Tests Test 12/20/17 04:03 White Blood Count 7.6 Red Blood Count 2.91 Hemoglobin 9.7 Hematocrit 28.5 Mean Corpuscular Volume 97.9 Mean Corpuscular Hemoglobin 33.2 Mean Corpuscular Hemoglobin Concent 33.9 Red Cell Distribution Width 15.2 Platelet Count 464 Mean Platelet Volume 9.0 Neutrophils (%) (Auto) 69.7 Lymphocytes (%) (Auto) 16.5 Monocytes (%) (Auto) 9.7 Eosinophils (%) (Auto) 3.6 Basophils (%) (Auto) 0.5 Neutrophils # (Auto) 5.3 Lymphocytes # (Auto) 1.3 Monocytes # (Auto) 0.7 Eosinophils # (Auto) 0.3 Basophils # (Auto) 0.0 CBC Comment DIFF FINAL Differential Comment Blood Urea Nitrogen 12 Creatinine 0.53 Random Glucose 118 Total Protein 6.2 Albumin 2.1 Calcium Level 8.6 Alkaline Phosphatase 1350 Aspartate Amino Transf (AST/SGOT) 129 Alanine Aminotransferase (ALT/SGPT) 186 Total Bilirubin 0.3 Sodium Level 136 Potassium Level 4.4 Chloride Level 98 Carbon Dioxide Level 26.9 Anion Gap 11 Estimat Glomerular Filtration Rate 117 Date/Time Source Procedure Growth Status 12/08/17 06:13 Blood Peripheral Aerobic Blood Culture - Final NO GROWTH IN 5 DAYS Complete 12/08/17 06:13 Blood Peripheral Anaerobic Blood Culture - Final NO GROWTH IN 5 DAYS Complete 12/02/17 15:29 Cerebral Spinal Fluid Lumbar Puncture Gram Stain - Final Complete 12/02/17 15:29 Cerebral Spinal Fluid Lumbar Puncture CSF Culture - Final NO GROWTH IN 72 HOURS Complete 12/08/17 06:00 Sputum Nasal Tracheal Aspirate Gram Stain - Final Complete 12/08/17 06:00 Sputum Culture - Final Escherichia Coli Complete 12/08/17 06:09 Urine Catheterized Urine Urine Culture - Final Anna Glabrata Complete Imaging Last Impressions Hepatobiliary Scan Nuclear Medicine 12/18/17 0000 Signed Impressions: Service Date/Time: Monday, December 18, 2017 10:53 - CONCLUSION: 1. Normal uptake and excretion of radiotracer. Dimitri Bird MD ADDENDUM: The there is a air in the report under the medication sections it should read cholecystokinin was administered by slow infusion over 8 minutes beginning at the 60 minute jyoti. Dimitri Bird MD Abdomen/Pelvis CT 12/17/17 0000 Signed Impressions: Service Date/Time: Sunday, December 17, 2017 15:44 - CONCLUSION: 1. There is a trace amount of free air in the upper abdomen anterior to left lobe of the liver and adjacent to the stomach. While nonspecific, this could be related to the G-tube. Suggest correlating with the clinical examination for signs of acute abdomen which would indicate a more concerning cause. 2. Moderately distended ascending and transverse colon. However, no anatomic obstruction is visualized. 3. Signs of fluid overload including bilateral pleural effusions, anasarca, periportal edema, and small volume of free fluid in the abdomen and pelvis. Uziel Troy MD Chest X-Ray 12/16/17 0600 Signed Impressions: Service Date/Time: Saturday, December 16, 2017 04:05 - CONCLUSION: 1. Stable left basilar consolidation/effusion. Possible posterior layering effusion on the right, unchanged. 2. Stable position of life support tubes Dani Titus MD Upper Extremity Ultrasound 12/15/17 0000 Signed Impressions: Service Date/Time: Friday, December 15, 2017 13:57 - CONCLUSION: Nonocclusive thrombus within left internal jugular vein. The remaining venous structures in the left upper extremity appear patent. Uziel Thomas MD Liver Ultrasound 12/12/17 0000 Signed Impressions: Service Date/Time: November 13:20 - CONCLUSION: 1. Marked gallbladder wall thickening with minimal pericholecystic fluid. No stones or sludge. 2. Small bilateral pleural effusions. Dani Titus MD Neck CTA 12/11/17 0000 Signed Impressions: Service Date/Time: Monday, December 11, 2017 23:08 - CONCLUSION: No carotid stenosis. Ac Davis MD Head CTA 12/11/17 0000 Signed Impressions: Service Date/Time: Monday, December 11, 2017 23:08 - CONCLUSION: 1. No large vessel stenosis or aneurysm. Ac Davis MD Brain MRI 12/11/17 0000 Signed Impressions: Service Date/Time: Monday, December 11, 2017 11:12 - CONCLUSION: 1. Faint diffusion restriction predominately along the high right parietal convexity with minimal diffusion restriction on the left. Pattern is somewhat unusual for anoxia with the asymmetry. Possible embolic event. CTA of the cervical and intracranial vessels to be performed for further characterization. 2. Chronic changes with some periventricular small vessel ischemic demyelination. 3. Mild ventricular prominence. In the appropriate clinical setting, findings could represent normal pressure hydrocephalus. 4. Bilateral mastoiditis. Mild chronic sinus disease in the sphenoid bilaterally. Dani Titus MD Gall Bladder Ultrasound 12/03/17 0000 Signed Impressions: Service Date/Time: Sunday, December 03, 2017 07:59 - CONCLUSION: 1. Ascites and bilateral pleural effusions. 2. Mildly distended gallbladder without evidence of wall thickening or cholelithiasis. 3. Otherwise unremarkable exam. Boo Cartwright MD Lumbar Puncture Fluoroscopy 12/02/17 0000 Signed Impressions: Service Date/Time: Saturday, December 02, 2017 15:28 - CONCLUSION: Uncomplicated fluoroscopically guided lumbar puncture. Aly Leigh MD Renal Ultrasound 11/29/17 1656 Signed Impressions: Service Date/Time: Wednesday, November 29, 2017 13:16 - CONCLUSION: 1. Both kidneys are sonographically normal without hydronephrosis or nephrolithiasis. 2. Very abnormal appearance of the gallbladder with mural thickening and minimal pericholecystic fluid Dani Titus MD Head CT 11/28/17 0000 Signed Impressions: Service Date/Time: November 15:46 - CONCLUSION: 1. Ventriculomegaly suggesting central cerebral atrophy versus hydrocephalus. Clinical correlation is recommended. 2. No acute infarct, acute hemorrhage, midline shift or extra-axial fluid collections. Dev Christopher MD Physical Exam HEENT: Normocephalic, atraumatic CHEST : Respirations synchronized with vent via trach CARDIAC: RRR ABDOMEN: Mildly distended, semi-firm, bowel sounds active. PEG tube site clean and dry to TF (Glucerna 1.5) running at 40 mL/hr SKIN: Normal; no rash; no jaundice. (Karina Flower) Assessment and Plan Plan Assessment: - Elevated LFTs- normal on admission on November 28 US liver (12/12) --> Marked gallbladder wall thickening with minimal pericholecystic fluid. No stones or sludge. Small bilateral pleural effusions. CT abdomen and pelvis W IV contrast (12/17) --> There is a trace amount of free air in the upper abdomen anterior to left lobe of the liver and adjacent to the stomach. While nonspecific, this could be related to the G-tube. Suggest correlating with the clinical examination for signs of acute abdomen which would indicate a more concerning cause. Moderately distended ascending and transverse colon. However, no anatomic obstruction is visualized. Signs of fluid overload including bilateral pleural effusions, anasarca, periportal edema, and small volume of free fluid in the abdomen and pelvis. HIDA scan (12/18) --> Normal uptake and excretion of radiotracer. Currently: AST-129 ALT-186 Alk phos-1350 T bili-0.3 Given the course of liver enzyme elevation likely secondary to medication Liver JEWELL: Iron-23 TIBC-241 %sat-9.6 Hepatitis panel negative Alk phos iso enzymes pending, CARLA and ASMA pending - Uncontrolled DM- admitted with BGL over 800 in DKA (12/20) LFTs remain about the same today. No significant changes over night. Liver work up labs still pending. As mentioned above, suspect medication induced elevation. Plan: Liver JEWELL pending Avoid hepatotoxins Continue TF recommendations per nutrition Further recommendations based on pending work up Pt has been seen and examined by myself and Dr. Love and this note is written on his behalf (Karina Flower) Plan Liver enzyme is still about the same, awaiting some labs for the workup of elevated liver function tests, (Verenice Love MD) Karina Flower December 20, 2017 09:37 Verenice Love MD December 20, 2017 22:49
--- NOTE | 2017-12-20 14:12 | HHI.IDPN ---
Subjective Subjective Remarks pt remains severely encephalopathic, not waking up off sedation essentially unresponsive remains on vent afebrile BP stable off abx AP is creeping up Antibiotics fluconazol cefepime Lines cvl discontinued piv in each arm Allergies: Coded Allergies: No Known Allergies (Unverified Allergy, Unknown, 11/28/17) Objective . Vital Signs Date Time Temp Pulse Resp B/P (MAP) Pulse Ox O2 Delivery O2 Flow Rate FiO2 12/20/17 12:00 35 12/20/17 12:00 98.5 65 15 126/62 (83) 100 12/20/17 12:00 65 12/20/17 11:37 99 35 12/20/17 10:00 68 12/20/17 08:00 98.2 75 12 136/65 (88) 100 12/20/17 08:00 35 12/20/17 08:00 80 12/20/17 07:45 100 35 12/20/17 06:00 77 12/20/17 04:00 98.6 74 12 152/69 (96) 99 12/20/17 04:00 35 12/20/17 04:00 74 12/20/17 03:51 100 35 12/20/17 02:00 81 12/20/17 01:36 100 35 12/20/17 00:00 74 12/20/17 00:00 35 12/20/17 00:00 98.4 74 13 126/64 (84) 100 12/19/17 22:10 100 35 12/19/17 22:00 82 12/19/17 20:11 100 35 12/19/17 20:00 98.7 85 15 130/65 (86) 100 12/19/17 20:00 85 12/19/17 20:00 35 12/19/17 18:00 72 12/19/17 16:19 100 35 12/19/17 16:00 35 12/19/17 16:00 72 12/19/17 16:00 98.2 72 14 128/65 (86) 100 . Laboratory Tests Test 12/19/17 08:27 12/20/17 04:03 White Blood Count 8.0 TH/MM3 7.6 TH/MM3 Red Blood Count 2.85 MIL/MM3 2.91 MIL/MM3 Hemoglobin 9.4 GM/DL 9.7 GM/DL Hematocrit 28.0 % 28.5 % Mean Corpuscular Volume 98.2 FL 97.9 FL Mean Corpuscular Hemoglobin 33.2 PG 33.2 PG Mean Corpuscular Hemoglobin Concent 33.8 % 33.9 % Red Cell Distribution Width 15.6 % 15.2 % Platelet Count 459 TH/MM3 464 TH/MM3 Mean Platelet Volume 9.1 FL 9.0 FL Neutrophils (%) (Auto) 75.7 % 69.7 % Lymphocytes (%) (Auto) 10.8 % 16.5 % Monocytes (%) (Auto) 9.7 % 9.7 % Eosinophils (%) (Auto) 2.9 % 3.6 % Basophils (%) (Auto) 0.9 % 0.5 % Neutrophils # (Auto) 6.1 TH/MM3 5.3 TH/MM3 Lymphocytes # (Auto) 0.9 TH/MM3 1.3 TH/MM3 Monocytes # (Auto) 0.8 TH/MM3 0.7 TH/MM3 Eosinophils # (Auto) 0.2 TH/MM3 0.3 TH/MM3 Basophils # (Auto) 0.1 TH/MM3 0.0 TH/MM3 CBC Comment DIFF FINAL DIFF FINAL Differential Comment Laboratory Tests Test 12/19/17 06:34 12/19/17 08:27 12/20/17 04:03 Blood Urea Nitrogen 13 MG/DL 12 MG/DL Creatinine 0.45 MG/DL 0.53 MG/DL Random Glucose 275 MG/DL 118 MG/DL Total Protein 5.4 GM/DL 6.2 GM/DL Albumin 1.8 GM/DL 2.1 GM/DL Calcium Level 8.0 MG/DL 8.6 MG/DL Alkaline Phosphatase 1179 U/L 1350 U/L Aspartate Amino Transf (AST/SGOT) 131 U/L 129 U/L Alanine Aminotransferase (ALT/SGPT) 187 U/L 186 U/L Total Bilirubin 0.2 MG/DL 0.3 MG/DL Sodium Level 135 MEQ/L 136 MEQ/L Potassium Level 4.5 MEQ/L 4.4 MEQ/L Chloride Level 100 MEQ/L 98 MEQ/L Carbon Dioxide Level 25.5 MEQ/L 26.9 MEQ/L Anion Gap 10 MEQ/L 11 MEQ/L Estimat Glomerular Filtration Rate 141 ML/MIN 117 ML/MIN Imaging Last Impressions Hepatobiliary Scan Nuclear Medicine 12/18/17 0000 Signed Impressions: Service Date/Time: Monday, December 18, 2017 10:53 - CONCLUSION: 1. Normal uptake and excretion of radiotracer. Dimitri Bird MD ADDENDUM: The there is a air in the report under the medication sections it should read cholecystokinin was administered by slow infusion over 8 minutes beginning at the 60 minute jyoti. Dimitri Bird MD Abdomen/Pelvis CT 12/17/17 0000 Signed Impressions: Service Date/Time: Sunday, December 17, 2017 15:44 - CONCLUSION: 1. There is a trace amount of free air in the upper abdomen anterior to left lobe of the liver and adjacent to the stomach. While nonspecific, this could be related to the G-tube. Suggest correlating with the clinical examination for signs of acute abdomen which would indicate a more concerning cause. 2. Moderately distended ascending and transverse colon. However, no anatomic obstruction is visualized. 3. Signs of fluid overload including bilateral pleural effusions, anasarca, periportal edema, and small volume of free fluid in the abdomen and pelvis. Uziel Troy MD Chest X-Ray 12/16/17 0600 Signed Impressions: Service Date/Time: Saturday, December 16, 2017 04:05 - CONCLUSION: 1. Stable left basilar consolidation/effusion. Possible posterior layering effusion on the right, unchanged. 2. Stable position of life support tubes Dani Titus MD Upper Extremity Ultrasound 12/15/17 0000 Signed Impressions: Service Date/Time: Friday, December 15, 2017 13:57 - CONCLUSION: Nonocclusive thrombus within left internal jugular vein. The remaining venous structures in the left upper extremity appear patent. Uziel Thomas MD Liver Ultrasound 12/12/17 0000 Signed Impressions: Service Date/Time: November 13:20 - CONCLUSION: 1. Marked gallbladder wall thickening with minimal pericholecystic fluid. No stones or sludge. 2. Small bilateral pleural effusions. Dani Titus MD Neck CTA 12/11/17 0000 Signed Impressions: Service Date/Time: Monday, December 11, 2017 23:08 - CONCLUSION: No carotid stenosis. Ac Davis MD Head CTA 12/11/17 0000 Signed Impressions: Service Date/Time: Monday, December 11, 2017 23:08 - CONCLUSION: 1. No large vessel stenosis or aneurysm. Ac Davis MD Brain MRI 12/11/17 0000 Signed Impressions: Service Date/Time: Monday, December 11, 2017 11:12 - CONCLUSION: 1. Faint diffusion restriction predominately along the high right parietal convexity with minimal diffusion restriction on the left. Pattern is somewhat unusual for anoxia with the asymmetry. Possible embolic event. CTA of the cervical and intracranial vessels to be performed for further characterization. 2. Chronic changes with some periventricular small vessel ischemic demyelination. 3. Mild ventricular prominence. In the appropriate clinical setting, findings could represent normal pressure hydrocephalus. 4. Bilateral mastoiditis. Mild chronic sinus disease in the sphenoid bilaterally. Dani Titus MD Gall Bladder Ultrasound 12/03/17 0000 Signed Impressions: Service Date/Time: Sunday, December 03, 2017 07:59 - CONCLUSION: 1. Ascites and bilateral pleural effusions. 2. Mildly distended gallbladder without evidence of wall thickening or cholelithiasis. 3. Otherwise unremarkable exam. Boo Cartwright MD Lumbar Puncture Fluoroscopy 12/02/17 0000 Signed Impressions: Service Date/Time: Saturday, December 02, 2017 15:28 - CONCLUSION: Uncomplicated fluoroscopically guided lumbar puncture. Aly Leigh MD Renal Ultrasound 11/29/17 1656 Signed Impressions: Service Date/Time: Wednesday, November 29, 2017 13:16 - CONCLUSION: 1. Both kidneys are sonographically normal without hydronephrosis or nephrolithiasis. 2. Very abnormal appearance of the gallbladder with mural thickening and minimal pericholecystic fluid Dani Titus MD Head CT 11/28/17 0000 Signed Impressions: Service Date/Time: November 15:46 - CONCLUSION: 1. Ventriculomegaly suggesting central cerebral atrophy versus hydrocephalus. Clinical correlation is recommended. 2. No acute infarct, acute hemorrhage, midline shift or extra-axial fluid collections. Dev Christopher MD Physical Exam CONSTITUTIONAL/GENERAL: This is an adequately nourished patient, in no apparent distress. TUBES/LINES/DRAINS: SKIN: No jaundice, rashes, or lesions. Skin temperature appropriate. Not diaphoretic. CARDIOVASCULAR: Regular rate and rhythm without murmurs, gallops, or rubs. No JVD. Peripheral pulses symmetric. RESPIRATORY/CHEST: Symmetric, unlabored respirations. Clear to auscultation. Breath sounds equal bilaterally. No wheezes, rales, or rhonchi. GASTROINTESTINAL: Abdomen soft, moderately distended, no reaction to palpation. No hepato-splenomegaly, or palpable masses. No guarding. Bowel sounds present. PEG in place GENITOURINARY: Without palpable bladder distension. Méndez catheter in place with clear yellow urine MUSCULOSKELETAL: Extremities without clubbing, cyanosis, or edema. No joint tenderness or effusion noted. No calf tenderness. No mottling or clubbing. NEUROLOGICAL: Unresponsive. 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
--- NOTE | 2017-12-20 14:33 | HHI.HCPN ---
Reason for visit a. To assist with evaluation and management of symptoms including: dyspnea, encephalopathy, seizures. b. To assist medical decision maker(s) with: better understanding of current medical conditions; weighing benefits/burdens of medical treatment options; making medical treatment decisions. Subjective/Interval History Patient seen to follow-up on symptoms of dyspnea, encephalopathy, seizures. She remains on mechanical ventilator undergoing spontaneous breathing trials daily. Yesterday she tolerated spontaneous breathing trial from 8 AM to 10 PM and was placed back on a rate overnight. Chest rise is symmetrical with mildly rhonchorous breath sounds, eupneic respiratory rate, with adequate volumes via tracheostomy. She remains encephalopathic, does not open eyes to command. Is not squeezing with the right hand with command. Some spontaneous movement of the right hand is seen but not reproducible to direction. EEG done 12/16 continues to show severe encephalopathy with some slight asymmetries and focal waves on the left side. Cerebyx is on hold at this time. Patient remains on seizure precautions. EEG done 12/16 shows no seizure activity. . Family/friend interactions Voicemail was left with patient's sister Evelyn and son Jamin for call back to update. 15: 00 spoke with son, Prince, via telephone. Update given regarding clinical status, neurological status, test results and patient condition. He is flying down this weekend to visit his mother and is considering withdrawal of life support. He states he will make this decision in the next 1-2 weeks, based on what he sees at his visit. Current plan is to visit this weekend and return the following weekend for withdrawal if no improvement. Advance Directives Living Will: Never completed Health Care Surrogate: Never completed Durable Power of Nursing Home Aide: Never completed Advance Directive Specifics Date completed: None completed. . Health Care Surrogate(s): None available. Per [place] statutes, her son Jamin would be the healthcare proxy and is willing to serve. . Documented care wishes: No documented care wishes available. . Objective Vital Signs Date Time Temp Pulse Resp B/P (MAP) Pulse Ox O2 Delivery O2 Flow Rate FiO2 12/20/17 12:00 35 12/20/17 12:00 98.5 65 15 126/62 (83) 100 12/20/17 12:00 65 12/20/17 11:37 99 35 12/20/17 10:00 68 12/20/17 08:00 98.2 75 12 136/65 (88) 100 12/20/17 08:00 35 12/20/17 08:00 80 12/20/17 07:45 100 35 12/20/17 06:00 77 12/20/17 04:00 98.6 74 12 152/69 (96) 99 12/20/17 04:00 35 12/20/17 04:00 74 12/20/17 03:51 100 35 12/20/17 02:00 81 12/20/17 01:36 100 35 12/20/17 00:00 74 12/20/17 00:00 35 12/20/17 00:00 98.4 74 13 126/64 (84) 100 12/19/17 22:10 100 35 12/19/17 22:00 82 12/19/17 20:11 100 35 12/19/17 20:00 98.7 85 15 130/65 (86) 100 12/19/17 20:00 85 12/19/17 20:00 35 12/19/17 18:00 72 12/19/17 16:19 100 35 12/19/17 16:00 35 12/19/17 16:00 72 12/19/17 16:00 98.2 72 14 128/65 (86) 100 12/19/17 14:00 75 Intake & Output 12/20/17 12/20/17 07:00 19:00 Intake Total 559 ml Output Total 450 ml Balance 109 ml Tube Feeding 439 ml Other 120 ml Output Urine Total 450 ml # Bowel Movements 2 Physical Exam CONSTITUTIONAL/GENERAL: This is an adequately nourished patient, [facility] TUBES/LINES/DRAINS: PIV LUE x 2. Méndez catheter . ETT. PEG SKIN: No jaundice, rashes, or lesions. No wounds seen anteriorly. Skin warm/ dry HEAD: Atraumatic. Normocephalic. EYES: Pupils equal and round and reactive. No scleral icterus. No injection or drainage. Fundi not examined. ENT: Nose without bleeding or purulent drainage. No something CARDIOVASCULAR: Regular rate and rhythm without murmur. No JVD. Peripheral pulses symmetric. 1+ edema BUE, 1+ edema left foot RESPIRATORY/CHEST: Symmetric, unlabored respirations via ETT, on SBT, no further apneic episodes. Mildly distended coarse breath sounds. Breath sounds equal bilaterally. GASTROINTESTINAL: Abdomen soft, round, nondistended. No palpable masses. Bowel sounds normoactive. TF infusing. GENITOURINARY: Without palpable bladder distension. Méndez catheter in place clear, yellow urine. MUSCULOSKELETAL: Extremities without clubbing, cyanosis. 2+ edema BUE. 1+ bilat feet. No mottling or clubbing. LYMPHATICS: No palpable cervical or supraclavicular adenopathy. NEUROLOGICAL: on no sedation. Not responsive to my exam. No eye opening or grimacing to pain stimuli, + resistance to eyelid retraction . Withdraws to pain in all 4 extremities. Spontaneous movement of right hand with occasional squeeze, not to command or reproducible. PSYCHIATRIC: Not responsive. . Diagnostic Tests Laboratory Laboratory Tests Test 12/18/17 06:42 12/19/17 06:34 12/19/17 08:27 12/20/17 04:03 White Blood Count 7.9 TH/MM3 (4.0-11.0) 8.0 TH/MM3 (4.0-11.0) 7.6 TH/MM3 (4.0-11.0) Red Blood Count 2.78 MIL/MM3 (4.00-5.30) 2.85 MIL/MM3 (4.00-5.30) 2.91 MIL/MM3 (4.00-5.30) Hemoglobin 9.3 GM/DL (11.6-15.3) 9.4 GM/DL (11.6-15.3) 9.7 GM/DL (11.6-15.3) Hematocrit 27.0 % (35.0-46.0) 28.0 % (35.0-46.0) 28.5 % (35.0-46.0) Mean Corpuscular Volume 97.0 FL (80.0-100.0) 98.2 FL (80.0-100.0) 97.9 FL (80.0-100.0) Mean Corpuscular Hemoglobin 33.4 PG (27.0-34.0) 33.2 PG (27.0-34.0) 33.2 PG (27.0-34.0) Mean Corpuscular Hemoglobin Concent 34.4 % (32.0-36.0) 33.8 % (32.0-36.0) 33.9 % (32.0-36.0) Red Cell Distribution Width 15.6 % (11.6-17.2) 15.6 % (11.6-17.2) 15.2 % (11.6-17.2) Platelet Count 458 TH/MM3 (150-450) 459 TH/MM3 (150-450) 464 TH/MM3 (150-450) Mean Platelet Volume 8.9 FL (7.0-11.0) 9.1 FL (7.0-11.0) 9.0 FL (7.0-11.0) Neutrophils (%) (Auto) 73.0 % (16.0-70.0) 75.7 % (16.0-70.0) 69.7 % (16.0-70.0) Lymphocytes (%) (Auto) 12.6 % (9.0-44.0) 10.8 % (9.0-44.0) 16.5 % (9.0-44.0) Monocytes (%) (Auto) 10.6 % (0.0-8.0) 9.7 % (0.0-8.0) 9.7 % (0.0-8.0) Eosinophils (%) (Auto) 2.9 % (0.0-4.0) 2.9 % (0.0-4.0) 3.6 % (0.0-4.0) Basophils (%) (Auto) 0.9 % (0.0-2.0) 0.9 % (0.0-2.0) 0.5 % (0.0-2.0) Neutrophils # (Auto) 5.8 TH/MM3 (1.8-7.7) 6.1 TH/MM3 (1.8-7.7) 5.3 TH/MM3 (1.8-7.7) Lymphocytes # (Auto) 1.0 TH/MM3 (1.0-4.8) 0.9 TH/MM3 (1.0-4.8) 1.3 TH/MM3 (1.0-4.8) Monocytes # (Auto) 0.8 TH/MM3 (0-0.9) 0.8 TH/MM3 (0-0.9) 0.7 TH/MM3 (0-0.9) Eosinophils # (Auto) 0.2 TH/MM3 (0-0.4) 0.2 TH/MM3 (0-0.4) 0.3 TH/MM3 (0-0.4) Basophils # (Auto) 0.1 TH/MM3 (0-0.2) 0.1 TH/MM3 (0-0.2) 0.0 TH/MM3 (0-0.2) CBC Comment DIFF FINAL DIFF FINAL DIFF FINAL Differential Comment Blood Urea Nitrogen 14 MG/DL (7-18) 13 MG/DL (7-18) 12 MG/DL (7-18) Creatinine 0.52 MG/DL (0.50-1.00) 0.45 MG/DL (0.50-1.00) 0.53 MG/DL (0.50-1.00) Random Glucose 161 MG/DL (74-106) 275 MG/DL (74-106) 118 MG/DL (74-106) Total Protein 5.8 GM/DL (6.4-8.2) 5.4 GM/DL (6.4-8.2) 6.2 GM/DL (6.4-8.2) Albumin 1.9 GM/DL (3.4-5.0) 1.8 GM/DL (3.4-5.0) 2.1 GM/DL (3.4-5.0) Calcium Level 8.0 MG/DL (8.5-10.1) 8.0 MG/DL (8.5-10.1) 8.6 MG/DL (8.5-10.1) Alkaline Phosphatase 1264 U/L (45-117) 1179 U/L (45-117) 1350 U/L (45-117) Aspartate Amino Transf (AST/SGOT) 225 U/L (15-37) 131 U/L (15-37) 129 U/L (15-37) Alanine Aminotransferase (ALT/SGPT) 244 U/L (10-53) 187 U/L (10-53) 186 U/L (10-53) Total Bilirubin 0.2 MG/DL (0.2-1.0) 0.2 MG/DL (0.2-1.0) 0.3 MG/DL (0.2-1.0) Sodium Level 134 MEQ/L (136-145) 135 MEQ/L (136-145) 136 MEQ/L (136-145) Potassium Level 4.2 MEQ/L (3.5-5.1) 4.5 MEQ/L (3.5-5.1) 4.4 MEQ/L (3.5-5.1) Chloride Level 102 MEQ/L (98-107) 100 MEQ/L (98-107) 98 MEQ/L (98-107) Carbon Dioxide Level 24.1 MEQ/L (21.0-32.0) 25.5 MEQ/L (21.0-32.0) 26.9 MEQ/L (21.0-32.0) Anion Gap 8 MEQ/L (5-15) 10 MEQ/L (5-15) 11 MEQ/L (5-15) Estimat Glomerular Filtration Rate 119 ML/MIN (>89) 141 ML/MIN (>89) 117 ML/MIN (>89) Iron Level 23 MCG/DL (50-170) Total Iron Binding Capacity 241 MCG/DL (250-450) Percent Iron Saturation 9.6 % (20-50) Phenytoin (Dilantin) Level 13.1 MCG/ML (10.0-20.0) Hepatitis A IgM Antibody NONREACTIVE (NONREACTIVE) Hepatitis B Surface Antigen NONREACTIVE (NONREACTIVE) Hepatitis B Core IgM Antibody NONREACTIVE (NONREACTIVE) Hepatitis C IgG Antibody NONREACTIVE (NONREACTIVE) . Result Diagram: 12/20/17 0403 12/20/17 0403 Microbiology Microbiology Date/Time Source Procedure Growth Status 12/08/17 06:13 Blood Peripheral Aerobic Blood Culture - Final NO GROWTH IN 5 DAYS Complete 12/08/17 06:13 Blood Peripheral Anaerobic Blood Culture - Final NO GROWTH IN 5 DAYS Complete 12/02/17 15:29 Cerebral Spinal Fluid Lumbar Puncture Gram Stain - Final Complete 12/02/17 15:29 Cerebral Spinal Fluid Lumbar Puncture CSF Culture - Final NO GROWTH IN 72 HOURS Complete 12/08/17 06:00 Sputum Nasal Tracheal Aspirate Gram Stain - Final Complete 12/08/17 06:00 Sputum Culture - Final Escherichia Coli Complete 12/08/17 06:09 Urine Catheterized Urine Urine Culture - Final Anna Glabrata Complete Imaging Last Impressions Hepatobiliary Scan Nuclear Medicine 12/18/17 0000 Signed Impressions: Service Date/Time: Monday, December 18, 2017 10:53 - CONCLUSION: 1. Normal uptake and excretion of radiotracer. Dimitri Bird MD ADDENDUM: The there is a air in the report under the medication sections it should read cholecystokinin was administered by slow infusion over 8 minutes beginning at the 60 minute jyoti. Dimitri Bird MD Abdomen/Pelvis CT 12/17/17 0000 Signed Impressions: Service Date/Time: Sunday, December 17, 2017 15:44 - CONCLUSION: 1. There is a trace amount of free air in the upper abdomen anterior to left lobe of the liver and adjacent to the stomach. While nonspecific, this could be related to the G-tube. Suggest correlating with the clinical examination for signs of acute abdomen which would indicate a more concerning cause. 2. Moderately distended ascending and transverse colon. However, no anatomic obstruction is visualized. 3. Signs of fluid overload including bilateral pleural effusions, anasarca, periportal edema, and small volume of free fluid in the abdomen and pelvis. Uziel Troy MD Chest X-Ray 12/16/17 0600 Signed Impressions: Service Date/Time: Saturday, December 16, 2017 04:05 - CONCLUSION: 1. Stable left basilar consolidation/effusion. Possible posterior layering effusion on the right, unchanged. 2. Stable position of life support tubes Dani Titus MD Upper Extremity Ultrasound 12/15/17 0000 Signed Impressions: Service Date/Time: Friday, December 15, 2017 13:57 - CONCLUSION: Nonocclusive thrombus within left internal jugular vein. The remaining venous structures in the left upper extremity appear patent. Uziel Thomas MD Liver Ultrasound 12/12/17 0000 Signed Impressions: Service Date/Time: November 13:20 - CONCLUSION: 1. Marked gallbladder wall thickening with minimal pericholecystic fluid. No stones or sludge. 2. Small bilateral pleural effusions. Dani Titus MD Neck CTA 12/11/17 0000 Signed Impressions: Service Date/Time: Monday, December 11, 2017 23:08 - CONCLUSION: No carotid stenosis. Ac Davis MD Head CTA 12/11/17 0000 Signed Impressions: Service Date/Time: Monday, December 11, 2017 23:08 - CONCLUSION: 1. No large vessel stenosis or aneurysm. Ac Davis MD Brain MRI 12/11/17 0000 Signed Impressions: Service Date/Time: Monday, December 11, 2017 11:12 - CONCLUSION: 1. Faint diffusion restriction predominately along the high right parietal convexity with minimal diffusion restriction on the left. Pattern is somewhat unusual for anoxia with the asymmetry. Possible embolic event. CTA of the cervical and intracranial vessels to be performed for further characterization. 2. Chronic changes with some periventricular small vessel ischemic demyelination. 3. Mild ventricular prominence. In the appropriate clinical setting, findings could represent normal pressure hydrocephalus. 4. Bilateral mastoiditis. Mild chronic sinus disease in the sphenoid bilaterally. Dani Titus MD Gall Bladder Ultrasound 12/03/17 0000 Signed Impressions: Service Date/Time: Sunday, December 03, 2017 07:59 - CONCLUSION: 1. Ascites and bilateral pleural effusions. 2. Mildly distended gallbladder without evidence of wall thickening or cholelithiasis. 3. Otherwise unremarkable exam. Boo Cartwright MD Lumbar Puncture Fluoroscopy 12/02/17 0000 Signed Impressions: Service Date/Time: Saturday, December 02, 2017 15:28 - CONCLUSION: Uncomplicated fluoroscopically guided lumbar puncture. Aly Leigh MD Renal Ultrasound 11/29/17 1656 Signed Impressions: Service Date/Time: Wednesday, November 29, 2017 13:16 - CONCLUSION: 1. Both kidneys are sonographically normal without hydronephrosis or nephrolithiasis. 2. Very abnormal appearance of the gallbladder with mural thickening and minimal pericholecystic fluid Dani Titus MD Head CT 11/28/17 0000 Signed Impressions: Service Date/Time: November 15:46 - CONCLUSION: 1. Ventriculomegaly suggesting central cerebral atrophy versus hydrocephalus. Clinical correlation is recommended. 2. No acute infarct, acute hemorrhage, midline shift or extra-axial fluid collections. Dev Christopher MD Procedures 11/29: Orotracheal intubation 11/29: Right chest tube placement secondary to iatrogenic pneumothorax. 11/29: Bronchoscopy 11/29: Left IJ central line placement 11/30: Bronchoscopy 12/16: Bronchoscopy 12/16: Upper endoscopy with PEG tube placement . Assessment and Plan Disease Oriented Problem List: (1) Hyperkalemia (2) Acute renal failure (3) DKA (diabetic ketoacidoses) (4) Altered mental status (5) Metabolic acidosis (6) Hypotension (7) Seizure cerebral (8) Encephalopathy, metabolic (9) NSTEMI (non-ST elevated myocardial infarction) (10) UTI (urinary tract infection) (11) Type 1 diabetes (12) Leukocytosis (13) Respiratory failure (14) Hypertension Symptom Scale: (1) Encephalopathy 0-10 Scale: Unable to quantify (2) Dyspnea 0-10 Scale: Unable to quantify Pertinent Non-Medical Issues Psychosocial:Originally from [place], moved here to [place] about 3 years ago to be closer to her sister and mother. Her son Jamin lives in [place]. 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 Supported locally by her sister , and significant other León Nolanjose. Patient and her sister Evelyn take turns helping to care for their mother who is in her 90s. Spiritual:Jewish adonay, attended [employer]. Would appreciate cylinder dyer visits per significant other. Legal:Pt unable to participate due to encephalopathy, not clear she will regain ability to participate. Her sister has been involved in her care and decisions. She also is reported to have one son who lives in [place]. Not known at this time if she has advanced directives or health care surrogate designation. If she does not have advanced directives, then her son or any additional children would be appropriate legal proxy per [place] statutes ( if they wish to serve as such). Ethical issues impacting care: No ethical issues identified. Important Contacts sister Evelyn Obrien at [phone] Son Jamin (in [place]) Significant other León Robertsалександр [phone]/ [phone] . Prognosis This patient was initially admitted for altered mental status, findings of DKA. She also suffered acute renal failure, respiratory failure. She were now remains profoundly encephalopathic on mechanical vent at this time unable to medically wean. 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 It is likely she will require tracheostomy and PEG tube to continue aggressive treatment course. . Code Status: Alternative Code (Continue intubation, no CPR, shock or ACLS drugs.) Plan * Legal decision maker:Pt unable to participate due to encephalopathy, not clear she will regain ability to participate. Her son, Jamin, has traveled from [place] to assist in decision making and per [place] Statutes, in the absence of Advanced Directives, he would be the legal proxy decision maker. * Goals: Comfort oriented. Continue intubation, no cardiac resuscitation. * CODE STATUS: Alternative code, continue intubation for now, no CPR, shock or ACLS drugs. * SYMPTOMS: --Encephalopathy-admitted with DKA, altered mental status. Initial MRI, CSF etc. negative. Repeat MRI findings area of diffusion restriction on right parietal convexity with less diffusion restriction on the left. Consistent with 12/11 EEG showing severe encephalopathy with more prominent slowing over the right hemisphere. CTA of neck and brain showed no acute findings. Not withdrawing to noxious stimuli or following commands. Dr. Neville advised family to wait 3 months prior to determining whether or not encephalopathy was permanent. --Dyspnea-emergently intubated for acute respiratory failure, inability to protect airway. Remains on mechanical vent. Tolerating spontaneous breathing trials well via tracheostomy. Plan to transition to T piece for vent weaning. --Seizures-no seizure activity seen on recent EEGs. Cerebyx is on hold by neurology. Remains on seizure precautions. * Palliative care will continue to follow during hospital course as condition evolves, to assist patient/decision-maker with understanding of medical conditions, weighing benefits/burdens of treatment options, for clarification of goals of treatment. Additionally will assist with any symptoms of palliative concern . Attestation To help prompt me to consider important information that might be impacting today's encounter and assessment, information from prior notes written by myself or my colleagues may have been "brought forward" into today's note. My signature on this note, however, is an attestation that I personally performed the exam, history, and/or decision-making noted today, and, unless otherwise indicated, the interactions with patient, family, and staff as well as the review of records all occurred today. I also attest that the listed assessment and stated plan reflect my best clinical judgment today based on the combination of historical information, prior notes, and today's exam/ interactions. When time spent is documented, it refers only to time spent today by the signer, or if indicated, combined time spent today by collaborating physician/nurse practitioner. . Marii Horowitz December 20, 2017 14:33
[2017-12-21] VITALS (14 sets, daily range): BP systolic 107–143; BP diastolic 56–91; PULSE 72–129; RESP 16–21; TEMP 97.1–99.7; O2SAT 90–100
[2017-12-21] MEDS: HEPARIN SODIUM - SQ 10,000 UNITS/ML VIAL SQ SCH ×3 (02:45→18:16)
[2017-12-21] MEDS: RESP: ALBUTEROL 2.5 MG/IPRATROPIUM 0.5 MG NEB (SCH) NEB ×4 (02:56→21:00)
[2017-12-21] MEDS: CHLORHEXIDINE GLUCONATE 2 % 1 PACK (2 CLOTHS) TOP SCH (04:00)
[2017-12-21] MEDS: INSULIN ASPART SUPPLEMENTAL SCALE SQ SCH ×6 (04:00→23:14)
[2017-12-21 05:18] LABS: AUTOMATED NEUTROPHIL # 5.6 TH/MM3 (1.8-7.7); BASOPHIL # 0.1 TH/MM3 (0-0.2); BASOPHIL % 0.8 % (0.0-2.0); EOSINOPHIL # 0.3 TH/MM3 (0-0.4); HEMOGLOBIN 9.3 GM/DL (11.6-15.3); LYMPH % 19.4 % (9.0-44.0); LYMPHOCYTE # 1.6 TH/MM3 (1.0-4.8); MEAN CELL VOLUME 96.8 FL (80.0-100.0); MEAN CORPUSCULAR HEMOGLOBIN 33.4 PG (27.0-34.0); MEAN CORPUSCULAR HGB CONC 34.5 % (32.0-36.0); MEAN PLATELET VOLUME 8.8 FL (7.0-11.0); MONO % 8.5 % (0.0-8.0); MONOCYTE # 0.7 TH/MM3 (0-0.9); NEUT % 67.3 % (16.0-70.0); PLATELET COUNT 430 TH/MM3 (150-450); RED BLOOD COUNT 2.79 MIL/MM3 (4.00-5.30); RED CELL DISTRIBUTION WIDTH 15.4 % (11.6-17.2); WHITE BLOOD COUNT 8.3 TH/MM3 (4.0-11.0)
[2017-12-21 05:41] LABS: ALBUMIN 2.1 GM/DL (3.4-5.0); AST (GOT) 132 U/L (15-37); BICARBONATE 27.9 MEQ/L (21.0-32.0); BLOOD UREA NITROGEN 10 MG/DL (7-18); CALCIUM 8.9 MG/DL (8.5-10.1); CHLORIDE 100 MEQ/L (98-107); GLOMERULAR FILTRATION RATE 125 ML/MIN (>89); GLUCOSE,RANDOM 83 MG/DL (74-106); SODIUM (NA) 138 MEQ/L (136-145)
[2017-12-21 05:42] LABS: ALT (GPT) 180 U/L (10-53)
[2017-12-21 05:56] LABS: ALKALINE PHOSPHATASE 1383 U/L (45-117); TOTAL BILIRUBIN ADULT 0.2 MG/DL (0.2-1.0); TOTAL PROTEIN 6.1 GM/DL (6.4-8.2)
[2017-12-21] MEDS: CHLORHEXIDINE 0.12% (ORAL KIT) 15 ML CUP MT SCH ×2 (07:44→23:12)
[2017-12-21] MEDS: THIAMINE HCL 100 MG TAB OG-TUBE SCH (08:27)
[2017-12-21] MEDS: ASPIRIN 81 MG CHEW TAB CHEW SCH (08:27)
[2017-12-21] MEDS: SODIUM CHLORIDE 0.9% FLUSH 10 ML FLUSH IV FLUSH SCH ×3 (08:27→23:15)
[2017-12-21] MEDS: MULTIVITAMIN TAB PO SCH (08:27)
[2017-12-21] MEDS: FAMOTIDINE 20 MG TAB NG SCH ×2 (08:27→23:15)
[2017-12-21] MEDS: INSULIN DETEMIR 100 UNITS/ML VIAL SQ SCH ×2 (08:28→23:13)
[2017-12-21] MEDS: ARTIFICIAL TEARS OPTH OINT 3.5 APPLIC/3.5 GM TUBO EACH EYE SCH ×4 (09:36→23:14)
--- NOTE | 2017-12-21 10:11 | HHI.CCPN ---
Subjective Remarks/Hospital Course This is a 51-year-old female. Date of admission 11/28/2017. Past medical history includes diabetes mellitus type 1 uncontrolled insulin- dependent with retinopathy on home insulin pump, hypertension, allergic rhinitis and chronic benzodiazepine use. She also has history of breast cancer on raloxifene she originally presented to [facility] ED During the workup, patient was noted to have a blood sugar of 808. Elevated acetone. Sodium 135. Potassium 6.0. Ferritin 2.1. Leukocytosis 25,000. Macrocytic anemia. UA negative for infectious etiology. She was bolused with 3 L of 0.9% NaCl IV fluid bolus. She is received 3 ampules of sodium bicarbonate and 1 g calcium gluconate. Chest x-ray post procedure revealed the CT scan of the head is read by the radiologist as ventriculomegaly but otherwise no acute findings. 11/29: Patient had nonrebreather off all night. PTX now 8 mm. Yells "Help me " "I don't know" Gap has closed, will transition back to SQ insulin if able to pass swallow. Replacing lytes. 11/30: Patient opens eyes to voice. Leftward gaze. Frequent blinking. Withdraws to stimulation bilateral lower extremities. T-max 99.5. Remains on norepinephrine and phenylephrine drips. MRI brain revealed ventriculomegaly. No acute signs of CVA. Echocardiogram EF 40%. 12/01: Afebrile. Patient remains off sedation approximately 24 hours nonresponsive. EEG in process. BAL revealed gram-negative rods the patient continues on Zosyn. The patient remains on vasopressors norepinephrine, vasopressin, and phenylephrine. Versed infusion restarted secondary to seizure activity noted on repeat EEG this a.m.. 12/02: Afebrile. The patient is scheduled for lumbar puncture this a.m., INR 1.0 patient has been off subcu heparin approximately 3 days. The patient continues on Versed and fentanyl infusions to maintain ventilator synchrony and avoidance of subclinical seizures which were noted on the EEG yesterday. The patient continues on multiple vasopressors to include norepinephrine and phenylephrine and vasopressin. Vasopressin currently being weaned off. The patient continues to have persistent leukocytosis though it is slightly downtrending plan for ID consult today appreciate recommendations. Bronchial washings resulted E. coli, currently patient continues on Zosyn. Patient was noted to have a positive fluid balance yesterday the patient received 20 mg of Lasix with adequate diuresis the patient noted to have a sodium level slightly decreased at 135 IV fluids mixed in 0.9 normal saline. 12/03: No acute events overnight lumbar puncture performed yesterday results pending. Dilantin level therapeutic. Phenobarbital level pending. Patient off vasopressin 24 hours. Phenylephrine currently being weaned off. Patient noted to be anemic 1 unit packed cells will be transfused today no pneumothorax chest tube now placed to waterseal today. 12/04: T-max 99.4. Repeat EEG performed today. Patient now withdrawing to pain 4 extremities, and open eyes to painful stimulus. Patient noted to move bilateral lower extremities 1 this shift. Patient tolerating tube feeds, overbreathing vent will begin CPAP trials in the a.m. if clinically stable. Phenylephrine completely discontinued overnight. Norepinephrine has been decreased to 3 mics/min. hemoglobin stable. 12/05: Afebrile. Patient was weaned off of norepinephrine last p.m.. The patient has been off sedation for greater than 48 hours, no change in neurological status opens eyes to deep stimulation, moves extremities 4 withdrawing to painful stimuli. CPAP trials initiated this a.m. the patient tolerated CPAP for approximately 6.5 hours. Chest x-ray remains unchanged no pneumo thorax, plan for removal of chest tube this evening. 12/06 No events overnight. On no sedation. Afebrile. unresponsive s/p removal chest tube yesterday.. 12/07 versed drip off since 12/04.. Eyes open to noxious stimuli, spontaneously moved R hand, withdraws x4. Temp max 99.3. WBC 11.2 today. Remains off pressors. On CPAP 05/23 and tolerating Subjective: 12/08. Temp max 100.4 overnight. Blood, urine, sputum cultures were sent. White blood cell count 13 this morning. Blood pressure was down to 84/46 with map of 56 this morning. Diuresed nearly 4 L yesterday with Lasix 40 IV q12, creatinine increased today. Tolerating tube feeds. Liquid stool x3 overnight. Apneic during multiple attempts at CPAP this morning. No neuro change. EEG bilateral slowing. Bihemispheric abnormalities. No epileptiform features 12/09: Remains encephalopathic, orally intubated on mechanical ventilation. Tolerating tube feeds. Not on any sedation. 12/10: Remains encephalopathic, orally intubated on mechanical ventilation. Tolerating tube feeds. Minimal eye opening with painful stimuli however extremely poor gag response. 12/11: Remains encephalopathic, orally intubated on mechanical ventilation. Tolerating tube feeds. Awaiting MRI/ EEG. 12/12: Remains encephalopathic, orally intubated on mechanical ventilation. No significant improvement in neurologic status noted. Tolerating tube feeds. EEG very abnormal more on the right. MRI brain done yesterday with high parietal lobe ischemic changes however CTA with no major vessel stenosis or aneurysm. 12/13 No events overnight. Remains intubated unresponsive. Afebrile. On no drips. 12/14: Remains encephalopathic, orally intubated on mechanical ventilation. 12/15:The patient tolerated CPAP trials for approximately 6 hours yesterday. The patient still remains encephalopathic. Tentative plan for possible PEG placement and tracheostomy, pending family decision. 12/16 Patient was transferred from PO yesterday for trach and PEG tube placement today. Afebrile. 12/17 Patient s/p trach and PEG tube placement yesterday. Afebrile. On no sedation. 12/18 No events overnight. Afebrile, for HIDA scan today.Tolerated CPAP all day yesterday 12/19 Patient remains on ventilator via trach. HIDA scan yesterday unremarkable. Afebrile. 12/20 No events overnight. Afebrile. 12/21 Patient was placed on TP's overnight with 35% FIO2. Afebrile. Objective Vital Signs Date Time Temp Pulse Resp B/P (MAP) Pulse Ox O2 Delivery O2 Flow Rate FiO2 12/21/17 09:50 94 T-piece 8.00 35 12/21/17 08:00 79 12/21/17 08:00 98.5 17 107/56 (73) Intake and Output 12/21/17 12/21/17 12/22/17 08:00 16:00 00:00 Intake Total 640 ml Output Total 2200 ml Balance -1560 ml Result Diagram: 12/21/17 0443 12/21/17 0443 Other Results Laboratory Tests Test 12/21/17 04:43 White Blood Count 8.3 TH/MM3 Red Blood Count 2.79 MIL/MM3 Hemoglobin 9.3 GM/DL Hematocrit 27.0 % Mean Corpuscular Volume 96.8 FL Mean Corpuscular Hemoglobin 33.4 PG Mean Corpuscular Hemoglobin Concent 34.5 % Red Cell Distribution Width 15.4 % Platelet Count 430 TH/MM3 Mean Platelet Volume 8.8 FL Neutrophils (%) (Auto) 67.3 % Lymphocytes (%) (Auto) 19.4 % Monocytes (%) (Auto) 8.5 % Eosinophils (%) (Auto) 4.0 % Basophils (%) (Auto) 0.8 % Neutrophils # (Auto) 5.6 TH/MM3 Lymphocytes # (Auto) 1.6 TH/MM3 Monocytes # (Auto) 0.7 TH/MM3 Eosinophils # (Auto) 0.3 TH/MM3 Basophils # (Auto) 0.1 TH/MM3 CBC Comment DIFF FINAL Differential Comment Blood Urea Nitrogen 10 MG/DL Creatinine 0.50 MG/DL Random Glucose 83 MG/DL Total Protein 6.1 GM/DL Albumin 2.1 GM/DL Calcium Level 8.9 MG/DL Alkaline Phosphatase 1383 U/L Aspartate Amino Transf (AST/SGOT) 132 U/L Alanine Aminotransferase (ALT/SGPT) 180 U/L Total Bilirubin 0.2 MG/DL Sodium Level 138 MEQ/L Potassium Level 4.1 MEQ/L Chloride Level 100 MEQ/L Carbon Dioxide Level 27.9 MEQ/L Anion Gap 10 MEQ/L Estimat Glomerular Filtration Rate 125 ML/MIN Imaging Last Impressions Hepatobiliary Scan Nuclear Medicine 12/18/17 0000 Signed Impressions: Service Date/Time: Monday, December 18, 2017 10:53 - CONCLUSION: 1. Normal uptake and excretion of radiotracer. Dimitri Bird MD ADDENDUM: The there is a air in the report under the medication sections it should read cholecystokinin was administered by slow infusion over 8 minutes beginning at the 60 minute jyoti. Dimitri Bird MD Abdomen/Pelvis CT 12/17/17 0000 Signed Impressions: Service Date/Time: Sunday, December 17, 2017 15:44 - CONCLUSION: 1. There is a trace amount of free air in the upper abdomen anterior to left lobe of the liver and adjacent to the stomach. While nonspecific, this could be related to the G-tube. Suggest correlating with the clinical examination for signs of acute abdomen which would indicate a more concerning cause. 2. Moderately distended ascending and transverse colon. However, no anatomic obstruction is visualized. 3. Signs of fluid overload including bilateral pleural effusions, anasarca, periportal edema, and small volume of free fluid in the abdomen and pelvis. Uziel Troy MD Chest X-Ray 12/16/17 0600 Signed Impressions: Service Date/Time: Saturday, December 16, 2017 04:05 - CONCLUSION: 1. Stable left basilar consolidation/effusion. Possible posterior layering effusion on the right, unchanged. 2. Stable position of life support tubes Dani Titus MD Upper Extremity Ultrasound 12/15/17 0000 Signed Impressions: Service Date/Time: Friday, December 15, 2017 13:57 - CONCLUSION: Nonocclusive thrombus within left internal jugular vein. The remaining venous structures in the left upper extremity appear patent. Uziel Thomas MD Liver Ultrasound 12/12/17 0000 Signed Impressions: Service Date/Time: November 13:20 - CONCLUSION: 1. Marked gallbladder wall thickening with minimal pericholecystic fluid. No stones or sludge. 2. Small bilateral pleural effusions. Dani Titus MD Neck CTA 12/11/17 0000 Signed Impressions: Service Date/Time: Monday, December 11, 2017 23:08 - CONCLUSION: No carotid stenosis. Ac Davis MD Head CTA 12/11/17 0000 Signed Impressions: Service Date/Time: Monday, December 11, 2017 23:08 - CONCLUSION: 1. No large vessel stenosis or aneurysm. Ac Davis MD Brain MRI 12/11/17 0000 Signed Impressions: Service Date/Time: Monday, December 11, 2017 11:12 - CONCLUSION: 1. Faint diffusion restriction predominately along the high right parietal convexity with minimal diffusion restriction on the left. Pattern is somewhat unusual for anoxia with the asymmetry. Possible embolic event. CTA of the cervical and intracranial vessels to be performed for further characterization. 2. Chronic changes with some periventricular small vessel ischemic demyelination. 3. Mild ventricular prominence. In the appropriate clinical setting, findings could represent normal pressure hydrocephalus. 4. Bilateral mastoiditis. Mild chronic sinus disease in the sphenoid bilaterally. Dani Titus MD Gall Bladder Ultrasound 12/03/17 0000 Signed Impressions: Service Date/Time: Sunday, December 03, 2017 07:59 - CONCLUSION: 1. Ascites and bilateral pleural effusions. 2. Mildly distended gallbladder without evidence of wall thickening or cholelithiasis. 3. Otherwise unremarkable exam. Boo Cartwright MD Lumbar Puncture Fluoroscopy 12/02/17 0000 Signed Impressions: Service Date/Time: Saturday, December 02, 2017 15:28 - CONCLUSION: Uncomplicated fluoroscopically guided lumbar puncture. Aly Leigh MD Renal Ultrasound 11/29/17 1656 Signed Impressions: Service Date/Time: Wednesday, November 29, 2017 13:16 - CONCLUSION: 1. Both kidneys are sonographically normal without hydronephrosis or nephrolithiasis. 2. Very abnormal appearance of the gallbladder with mural thickening and minimal pericholecystic fluid Dani Titus MD Head CT 11/28/17 0000 Signed Impressions: Service Date/Time: November 15:46 - CONCLUSION: 1. Ventriculomegaly suggesting central cerebral atrophy versus hydrocephalus. Clinical correlation is recommended. 2. No acute infarct, acute hemorrhage, midline shift or extra-axial fluid collections. Dev Christopher MD Procedures 12/02- lumbar puncture Objective Remarks GENERAL: 61-year-old female on TP's with 35% FIO2. SKIN: Warm and dry. No rash HEAD: Atraumatic. Normocephalic. EYES: Gaze conjugate. Pupils equal and round about 4 mm and reactive to 2 mm bilaterally. No scleral icterus. No injection. Scleral edema improved. ENT: No nasal bleeding or discharge. Mucous membranes pink and moist NECK: Trachea midline. No JVD. CARDIOVASCULAR: RRR. . No murmur RESPIRATORY: B/L equal air entry GASTROINTESTINAL: NGT L nare with tube feeds running. Abdomen soft, non-tender, nondistended. Bowel sounds present.+PEG tube MUSCULOSKELETAL: Edema improved, ~ 1+ of hands and ble. NEUROLOGICAL: Pupils reactive as per above + cough + gag. Eyes open to deep central noxious stimuli. Withdraws with all extremities. Date of Insertion: Nov 28, 2017 Line: Central Venous Catheter Side: Left Location: Internal, Jugular A/P Assessment and Plan Neuro/Psych: Acute encephalopathy secondary to diabetic ketoacidosis Anxiety disorder NOS Benzodiazepine use Off sedation since 12/04. Neurology Dr. Neville Acetaminophen 650 mg by tube every 6 hours as needed fever CT brain 11/28 revealed Ventriculomegaly suggesting central cerebral atrophy versus hydrocephalus. Clinical correlation is recommended. No acute infarct, acute hemorrhage, midline shift or extra-axial fluid collections. UDS negative MRI brain 11/29 revealed mild to moderate ventriculomegaly. EEG - 12/07 bihemispheric slowing. No epileptiform features. EEG 11/28- bihemispheric slowing with some left frontocentral sharp waves and phase reversal suggesting an epileptiform abnormality and possible structural lesion in this region. No ictal pattern present. Neurology -Dr. Neville, on Cerebyx 200mg Q12. Check Dilantin level and hold level for elevated LFT's 12/02 Ophthalmology -no eye infection Lacri-Lube applied for scleral edema 12/02-lumbar puncture-negative. CSF HSV negative 12/03-cortisol level 17 ammonia level 22 12/11 EEG consistent with a severe encephalopathy. There is more prominent slowing over the right hemisphere. MRI brain done on 12/11 with ischemic changes high left parietal lobe however CTA brain with no major vessel stenosis or aneurysm. . CV: History of hypertension Shock, resolved Elevated troponin Acute systolic heart failure ejection fraction 40% NSTEMI cardiomyopathy Monitor HR and BP keep MAP>65mmHg Atorvastatin 10 mg by tube daily on hold for elevated LFT's Continue aspirin 81 mg by tube daily 2D echocardiogram revealed EF around 40%. LV increased size. Septal hypokinesis. 12/03- Cardiology has signed off Resp: Acute hypoxemic respiratory failure Hemoptysis-resolved Tobacco abuse/ongoing Iatrogenic PTX status post chest tube placement Continue with oxygen/TP's as harsha keep sats >92% Ventilator bundle. s/p trach on 12/16 Albuterol/ipratropium aerosols every 6 hours with albuterol aerosols every 2 hours as needed dyspnea Pulm toilet, trach care Status post bronchoscopy 11/29. SBT/TP's daily as harsha GI: Moderate protein energy malnutrition Elevated LFT's On tube feeds- Glucerna 1.5 @ 40 mL/h Monitor LFT's, Hep profile negative. famotidine for GI prophylaxis s/p PEG tube placement 12/16 12/18 HIDA scan: unremarkable Docusate sodium/senna 1 tablet twice daily for bowel regimen 12/17 CT abdomen/pelvis from today showed trace amount of free air in the upper abdomen anterior to left lobe of the liver and adjacent to the stomach. this could be related to the G-tube. Moderately distended ascending and transverse colon. No obstruction. 12/12 US Liver: Marked gallbladder wall thickening with minimal pericholecystic fluid. No stones or sludge. Small bilateral pleural effusions. 12/03 gallbladder ultrasound -gallbladder mildly distended without evidence of wall thickening or cholelithiasis. There is ascites and pleural effusions. GI eval noted. Continue multivitamin/thiamine. thiamine via og FEN/RENAL: BRIELLE- resolved Hyponatremia Monitor renal function, I/O's, electrolytes replacement per protocol. Renal ultrasound revealed no medical renal disease. Endo: Insulin-dependent diabetes mellitus type 1 uncontrolled Diabetic ketoacidosis - resolved Originally, patient received 3 L normal saline in the ED along with 3 refills and bicarbonate, 1 ampule of calcium gluconate. Beta hydroxybutyrate cleared 11/29 Insulin pump was disconnected 11/28. According to sister Evelyn Obrien, patient had received a new insulin pump within the past 48 hours [employer]. She has no history of DKA in the past to her knowledge TSH 0.38 Continue SSI Novulog medium protocol with accucheck every 4 hours maintain euglycemia Levemir 7 q12 Heme: Leukocytosis- Resolved Macrocytic anemia Monitor CBC daily. 12/03 transfused 1 unit of packed red blood cells ID: Community-acquired versus aspiration BC x2, UA (-) inf A/B negative 11/29 S/P bronchoscopy with sample sent from left lower lobe 11/29 Sputum (BAL)-E.coli, pansensitive ID is following, Dr. Childs Off abx- monitor for signs of infections ( Fever, WBC) 12/02-lumbar puncture-negative Access PIV in place Prophylaxis -GI -famotidine for stress ulcer prophylaxis -DVT -SCD/continue heparin SQ Doppler US UE: Non-occlusive thrombus left IJ vein Palliative care is following Level 2 Edouard Mayo MD December 21, 2017 10:11
--- NOTE | 2017-12-21 11:07 | HHI.GIFU ---
Subjective Remarks Pt does not open eyes during my exam Friends at bedside (Karina Flower) Objective Vitals I&O Vital Signs Date Time Temp Pulse Resp B/P (MAP) Pulse Ox O2 Delivery O2 Flow Rate FiO2 12/21/17 10:00 107 12/21/17 09:50 94 T-piece 8.00 35 12/21/17 08:00 79 12/21/17 08:00 98.5 79 17 107/56 (73) 95 12/21/17 07:00 T-Piece 40 Humidified 12/21/17 06:00 81 12/21/17 04:00 97.1 77 16 128/61 (83) 95 12/21/17 04:00 77 12/21/17 02:00 72 12/21/17 00:00 97.7 73 17 125/70 (88) 100 12/21/17 00:00 72 12/20/17 22:00 92 12/20/17 20:09 100 T-piece 28 12/20/17 20:00 74 12/20/17 20:00 97.9 83 19 148/70 (96) 100 12/20/17 20:00 T-Piece 40 Humidified 12/20/17 18:00 84 12/20/17 16:11 100 35 12/20/17 16:00 98.0 68 13 141/66 (91) 100 12/20/17 16:00 63 12/20/17 16:00 35 12/20/17 14:00 69 12/20/17 12:00 35 12/20/17 12:00 98.5 65 15 126/62 (83) 100 12/20/17 12:00 65 12/20/17 11:37 99 35 I/O 12/20/17 12/20/17 12/20/17 12/21/17 12/21/17 12/21/17 07:00 15:00 23:00 07:00 15:00 23:00 Intake Total 559 ml 543 ml 640 ml Output Total 450 ml 1000 ml 2200 ml Balance 109 ml -457 ml -1560 ml Intake Oral 0 ml Tube Feeding 439 ml 423 ml 440 ml Other 120 ml 120 ml 200 ml Output Urine Total 450 ml 1000 ml 2200 ml # Bowel Movements 2 2 1 Laboratory Laboratory Tests Test 12/21/17 04:43 White Blood Count 8.3 Red Blood Count 2.79 Hemoglobin 9.3 Hematocrit 27.0 Mean Corpuscular Volume 96.8 Mean Corpuscular Hemoglobin 33.4 Mean Corpuscular Hemoglobin Concent 34.5 Red Cell Distribution Width 15.4 Platelet Count 430 Mean Platelet Volume 8.8 Neutrophils (%) (Auto) 67.3 Lymphocytes (%) (Auto) 19.4 Monocytes (%) (Auto) 8.5 Eosinophils (%) (Auto) 4.0 Basophils (%) (Auto) 0.8 Neutrophils # (Auto) 5.6 Lymphocytes # (Auto) 1.6 Monocytes # (Auto) 0.7 Eosinophils # (Auto) 0.3 Basophils # (Auto) 0.1 CBC Comment DIFF FINAL Differential Comment Blood Urea Nitrogen 10 Creatinine 0.50 Random Glucose 83 Total Protein 6.1 Albumin 2.1 Calcium Level 8.9 Alkaline Phosphatase 1383 Aspartate Amino Transf (AST/SGOT) 132 Alanine Aminotransferase (ALT/SGPT) 180 Total Bilirubin 0.2 Sodium Level 138 Potassium Level 4.1 Chloride Level 100 Carbon Dioxide Level 27.9 Anion Gap 10 Estimat Glomerular Filtration Rate 125 Date/Time Source Procedure Growth Status 12/08/17 06:13 Blood Peripheral Aerobic Blood Culture - Final NO GROWTH IN 5 DAYS Complete 12/08/17 06:13 Blood Peripheral Anaerobic Blood Culture - Final NO GROWTH IN 5 DAYS Complete 12/02/17 15:29 Cerebral Spinal Fluid Lumbar Puncture Gram Stain - Final Complete 12/02/17 15:29 Cerebral Spinal Fluid Lumbar Puncture CSF Culture - Final NO GROWTH IN 72 HOURS Complete 12/08/17 06:00 Sputum Nasal Tracheal Aspirate Gram Stain - Final Complete 12/08/17 06:00 Sputum Culture - Final Escherichia Coli Complete 12/08/17 06:09 Urine Catheterized Urine Urine Culture - Final Anna Glabrata Complete Imaging Last Impressions Hepatobiliary Scan Nuclear Medicine 12/18/17 0000 Signed Impressions: Service Date/Time: Monday, December 18, 2017 10:53 - CONCLUSION: 1. Normal uptake and excretion of radiotracer. Dimitri Bird MD ADDENDUM: The there is a air in the report under the medication sections it should read cholecystokinin was administered by slow infusion over 8 minutes beginning at the 60 minute jyoti. Dimitri Bird MD Abdomen/Pelvis CT 12/17/17 0000 Signed Impressions: Service Date/Time: Sunday, December 17, 2017 15:44 - CONCLUSION: 1. There is a trace amount of free air in the upper abdomen anterior to left lobe of the liver and adjacent to the stomach. While nonspecific, this could be related to the G-tube. Suggest correlating with the clinical examination for signs of acute abdomen which would indicate a more concerning cause. 2. Moderately distended ascending and transverse colon. However, no anatomic obstruction is visualized. 3. Signs of fluid overload including bilateral pleural effusions, anasarca, periportal edema, and small volume of free fluid in the abdomen and pelvis. Uziel Troy MD Chest X-Ray 12/16/17 0600 Signed Impressions: Service Date/Time: Saturday, December 16, 2017 04:05 - CONCLUSION: 1. Stable left basilar consolidation/effusion. Possible posterior layering effusion on the right, unchanged. 2. Stable position of life support tubes Dani Titus MD Upper Extremity Ultrasound 12/15/17 0000 Signed Impressions: Service Date/Time: Friday, December 15, 2017 13:57 - CONCLUSION: Nonocclusive thrombus within left internal jugular vein. The remaining venous structures in the left upper extremity appear patent. Uziel Thomas MD Liver Ultrasound 12/12/17 0000 Signed Impressions: Service Date/Time: November 13:20 - CONCLUSION: 1. Marked gallbladder wall thickening with minimal pericholecystic fluid. No stones or sludge. 2. Small bilateral pleural effusions. Dani Titus MD Neck CTA 12/11/17 0000 Signed Impressions: Service Date/Time: Monday, December 11, 2017 23:08 - CONCLUSION: No carotid stenosis. Ac Davis MD Head CTA 12/11/17 0000 Signed Impressions: Service Date/Time: Monday, December 11, 2017 23:08 - CONCLUSION: 1. No large vessel stenosis or aneurysm. Ac Davis MD Brain MRI 12/11/17 0000 Signed Impressions: Service Date/Time: Monday, December 11, 2017 11:12 - CONCLUSION: 1. Faint diffusion restriction predominately along the high right parietal convexity with minimal diffusion restriction on the left. Pattern is somewhat unusual for anoxia with the asymmetry. Possible embolic event. CTA of the cervical and intracranial vessels to be performed for further characterization. 2. Chronic changes with some periventricular small vessel ischemic demyelination. 3. Mild ventricular prominence. In the appropriate clinical setting, findings could represent normal pressure hydrocephalus. 4. Bilateral mastoiditis. Mild chronic sinus disease in the sphenoid bilaterally. Dani Titus MD Gall Bladder Ultrasound 12/03/17 0000 Signed Impressions: Service Date/Time: Sunday, December 03, 2017 07:59 - CONCLUSION: 1. Ascites and bilateral pleural effusions. 2. Mildly distended gallbladder without evidence of wall thickening or cholelithiasis. 3. Otherwise unremarkable exam. Boo Cartwright MD Lumbar Puncture Fluoroscopy 12/02/17 0000 Signed Impressions: Service Date/Time: Saturday, December 02, 2017 15:28 - CONCLUSION: Uncomplicated fluoroscopically guided lumbar puncture. Aly Leigh MD Renal Ultrasound 11/29/17 1656 Signed Impressions: Service Date/Time: Wednesday, November 29, 2017 13:16 - CONCLUSION: 1. Both kidneys are sonographically normal without hydronephrosis or nephrolithiasis. 2. Very abnormal appearance of the gallbladder with mural thickening and minimal pericholecystic fluid Dani Titus MD Head CT 11/28/17 0000 Signed Impressions: Service Date/Time: November 15:46 - CONCLUSION: 1. Ventriculomegaly suggesting central cerebral atrophy versus hydrocephalus. Clinical correlation is recommended. 2. No acute infarct, acute hemorrhage, midline shift or extra-axial fluid collections. Dev Christopher MD Physical Exam HEENT: Normocephalic, atraumatic CHEST : Even/unlabored- T piece CARDIAC: RRR ABDOMEN: Mildly distended, semi-firm, bowel sounds active. PEG tube site clean and dry to TF (Glucerna 1.5) running at 40 mL/hr SKIN: Normal; no rash; no jaundice. (Karina Flower) Assessment and Plan Plan Assessment: - Elevated LFTs- normal on admission on November 28 US liver (12/12) --> Marked gallbladder wall thickening with minimal pericholecystic fluid. No stones or sludge. Small bilateral pleural effusions. CT abdomen and pelvis W IV contrast (12/17) --> There is a trace amount of free air in the upper abdomen anterior to left lobe of the liver and adjacent to the stomach. While nonspecific, this could be related to the G-tube. Suggest correlating with the clinical examination for signs of acute abdomen which would indicate a more concerning cause. Moderately distended ascending and transverse colon. However, no anatomic obstruction is visualized. Signs of fluid overload including bilateral pleural effusions, anasarca, periportal edema, and small volume of free fluid in the abdomen and pelvis. HIDA scan (12/18) --> Normal uptake and excretion of radiotracer. Currently: AST-129 ALT-186 Alk phos-1350 T bili-0.3 Given the course of liver enzyme elevation likely secondary to medication Liver JEWELL: Iron-23 TIBC-241 %sat-9.6 Hepatitis panel negative Alk phos iso enzymes pending, CARLA and ASMA negative - Uncontrolled DM- admitted with BGL over 800 in DKA (12/20) LFTs remain about the same today. No significant changes over night. Liver work up labs still pending. As mentioned above, suspect medication induced elevation. (12/21) No significant changes over night. LFTs remain about the same. Plan: Alk phos iso enzymes pending Avoid hepatotoxins Control of BGL Continue TF recommendations per nutrition Further recommendations based on pending work up Pt has been seen and examined by myself and Dr. Gonzalez and this note is written on her behalf (Karina Flower) Physician Comments seen, examined agree with above antimitochondrial ab , fu alp isoenzymes trial of Actigall 300 mg po tid abdominal us if no improvement and work up negative may consider liver biopsy (Latasha Gonzalez MD) Karina Flower December 21, 2017 11:07 Latasha Gonzalez MD December 21, 2017 15:16
[2017-12-21] MEDS: URSODIOL 300 MG CAP PO SCH (23:15)
[2017-12-21 23:53] LABS: ALK PHOS BONE (ISOENZYMES) 40 % (28-66); ALK PHOS INTESTINE (ISOENZYME) 0 % (1-24); ALK PHOS LIVER (ISOENZYME) 60 % (25-69); ALK PHOS PLACENTAL ISOENZYME 0 % (0)
[2017-12-22] VITALS (14 sets, daily range): BP systolic 128–144; BP diastolic 64–70; PULSE 74–115; RESP 18–64; TEMP 97.6–99.4; O2SAT 95–100
[2017-12-22] MEDS: HEPARIN SODIUM - SQ 10,000 UNITS/ML VIAL SQ SCH ×3 (02:27→17:24)
[2017-12-22] MEDS: RESP: ALBUTEROL 2.5 MG/IPRATROPIUM 0.5 MG NEB (SCH) NEB ×4 (03:56→21:32)
[2017-12-22] MEDS: INSULIN ASPART SUPPLEMENTAL SCALE SQ SCH ×6 (04:00→20:32)
[2017-12-22] MEDS: CHLORHEXIDINE GLUCONATE 2 % 1 PACK (2 CLOTHS) TOP SCH (04:00)
[2017-12-22 05:52] LABS: AUTOMATED NEUTROPHIL # 8.7 TH/MM3 (1.8-7.7); BASOPHIL # 0.1 TH/MM3 (0-0.2); BASOPHIL % 0.6 % (0.0-2.0); EOSINOPHIL # 0.2 TH/MM3 (0-0.4); HEMATOCRIT 27.8 % (35.0-46.0); HEMOGLOBIN 9.3 GM/DL (11.6-15.3); LYMPH % 12.9 % (9.0-44.0); LYMPHOCYTE # 1.5 TH/MM3 (1.0-4.8); MEAN CELL VOLUME 97.5 FL (80.0-100.0); MEAN CORPUSCULAR HEMOGLOBIN 32.6 PG (27.0-34.0); MEAN CORPUSCULAR HGB CONC 33.5 % (32.0-36.0); MEAN PLATELET VOLUME 8.5 FL (7.0-11.0); MONO % 7.8 % (0.0-8.0); MONOCYTE # 0.9 TH/MM3 (0-0.9); NEUT % 76.7 % (16.0-70.0); PLATELET COUNT 455 TH/MM3 (150-450); RED BLOOD COUNT 2.85 MIL/MM3 (4.00-5.30); RED CELL DISTRIBUTION WIDTH 15.4 % (11.6-17.2); WHITE BLOOD COUNT 11.4 TH/MM3 (4.0-11.0)
[2017-12-22 06:35] LABS: ALBUMIN 2.2 GM/DL (3.4-5.0); ALKALINE PHOSPHATASE 1272 U/L (45-117); ALT (GPT) 145 U/L (10-53); AST (GOT) 69 U/L (15-37); BICARBONATE 28.6 MEQ/L (21.0-32.0); BLOOD UREA NITROGEN 11 MG/DL (7-18); CALCIUM 8.5 MG/DL (8.5-10.1); CHLORIDE 99 MEQ/L (98-107); CREATININE 0.58 MG/DL (0.50-1.00); GLOMERULAR FILTRATION RATE 105 ML/MIN (>89); GLUCOSE,RANDOM 228 MG/DL (74-106); SODIUM (NA) 137 MEQ/L (136-145); TOTAL BILIRUBIN ADULT 0.2 MG/DL (0.2-1.0); TOTAL PROTEIN 6.3 GM/DL (6.4-8.2)
--- NOTE | 2017-12-22 07:44 | HHI.CCPN ---
Subjective Remarks/Hospital Course This is a 51-year-old female. Date of admission 11/28/2017. Past medical history includes diabetes mellitus type 1 uncontrolled insulin- dependent with retinopathy on home insulin pump, hypertension, allergic rhinitis and chronic benzodiazepine use. She also has history of breast cancer on raloxifene she originally presented to [facility] ED During the workup, patient was noted to have a blood sugar of 808. Elevated acetone. Sodium 135. Potassium 6.0. Ferritin 2.1. Leukocytosis 25,000. Macrocytic anemia. UA negative for infectious etiology. She was bolused with 3 L of 0.9% NaCl IV fluid bolus. She is received 3 ampules of sodium bicarbonate and 1 g calcium gluconate. Chest x-ray post procedure revealed the CT scan of the head is read by the radiologist as ventriculomegaly but otherwise no acute findings. 11/29: Patient had nonrebreather off all night. PTX now 8 mm. Yells "Help me " "I don't know" Gap has closed, will transition back to SQ insulin if able to pass swallow. Replacing lytes. 11/30: Patient opens eyes to voice. Leftward gaze. Frequent blinking. Withdraws to stimulation bilateral lower extremities. T-max 99.5. Remains on norepinephrine and phenylephrine drips. MRI brain revealed ventriculomegaly. No acute signs of CVA. Echocardiogram EF 40%. 12/01: Afebrile. Patient remains off sedation approximately 24 hours nonresponsive. EEG in process. BAL revealed gram-negative rods the patient continues on Zosyn. The patient remains on vasopressors norepinephrine, vasopressin, and phenylephrine. Versed infusion restarted secondary to seizure activity noted on repeat EEG this a.m.. 12/02: Afebrile. The patient is scheduled for lumbar puncture this a.m., INR 1.0 patient has been off subcu heparin approximately 3 days. The patient continues on Versed and fentanyl infusions to maintain ventilator synchrony and avoidance of subclinical seizures which were noted on the EEG yesterday. The patient continues on multiple vasopressors to include norepinephrine and phenylephrine and vasopressin. Vasopressin currently being weaned off. The patient continues to have persistent leukocytosis though it is slightly downtrending plan for ID consult today appreciate recommendations. Bronchial washings resulted E. coli, currently patient continues on Zosyn. Patient was noted to have a positive fluid balance yesterday the patient received 20 mg of Lasix with adequate diuresis the patient noted to have a sodium level slightly decreased at 135 IV fluids mixed in 0.9 normal saline. 12/03: No acute events overnight lumbar puncture performed yesterday results pending. Dilantin level therapeutic. Phenobarbital level pending. Patient off vasopressin 24 hours. Phenylephrine currently being weaned off. Patient noted to be anemic 1 unit packed cells will be transfused today no pneumothorax chest tube now placed to waterseal today. 12/04: T-max 99.4. Repeat EEG performed today. Patient now withdrawing to pain 4 extremities, and open eyes to painful stimulus. Patient noted to move bilateral lower extremities 1 this shift. Patient tolerating tube feeds, overbreathing vent will begin CPAP trials in the a.m. if clinically stable. Phenylephrine completely discontinued overnight. Norepinephrine has been decreased to 3 mics/min. hemoglobin stable. 12/05: Afebrile. Patient was weaned off of norepinephrine last p.m.. The patient has been off sedation for greater than 48 hours, no change in neurological status opens eyes to deep stimulation, moves extremities 4 withdrawing to painful stimuli. CPAP trials initiated this a.m. the patient tolerated CPAP for approximately 6.5 hours. Chest x-ray remains unchanged no pneumo thorax, plan for removal of chest tube this evening. 12/06 No events overnight. On no sedation. Afebrile. unresponsive s/p removal chest tube yesterday.. 12/07 versed drip off since 12/04.. Eyes open to noxious stimuli, spontaneously moved R hand, withdraws x4. Temp max 99.3. WBC 11.2 today. Remains off pressors. On CPAP 05/23 and tolerating Subjective: 12/08. Temp max 100.4 overnight. Blood, urine, sputum cultures were sent. White blood cell count 13 this morning. Blood pressure was down to 84/46 with map of 56 this morning. Diuresed nearly 4 L yesterday with Lasix 40 IV q12, creatinine increased today. Tolerating tube feeds. Liquid stool x3 overnight. Apneic during multiple attempts at CPAP this morning. No neuro change. EEG bilateral slowing. Bihemispheric abnormalities. No epileptiform features 12/09: Remains encephalopathic, orally intubated on mechanical ventilation. Tolerating tube feeds. Not on any sedation. 12/10: Remains encephalopathic, orally intubated on mechanical ventilation. Tolerating tube feeds. Minimal eye opening with painful stimuli however extremely poor gag response. 12/11: Remains encephalopathic, orally intubated on mechanical ventilation. Tolerating tube feeds. Awaiting MRI/ EEG. 12/12: Remains encephalopathic, orally intubated on mechanical ventilation. No significant improvement in neurologic status noted. Tolerating tube feeds. EEG very abnormal more on the right. MRI brain done yesterday with high parietal lobe ischemic changes however CTA with no major vessel stenosis or aneurysm. 12/13 No events overnight. Remains intubated unresponsive. Afebrile. On no drips. 12/14: Remains encephalopathic, orally intubated on mechanical ventilation. 12/15:The patient tolerated CPAP trials for approximately 6 hours yesterday. The patient still remains encephalopathic. Tentative plan for possible PEG placement and tracheostomy, pending family decision. 12/16 Patient was transferred from PO yesterday for trach and PEG tube placement today. Afebrile. 12/17 Patient s/p trach and PEG tube placement yesterday. Afebrile. On no sedation. 12/18 No events overnight. Afebrile, for HIDA scan today.Tolerated CPAP all day yesterday 12/19 Patient remains on ventilator via trach. HIDA scan yesterday unremarkable. Afebrile. 12/20 No events overnight. Afebrile. 12/21 Patient was placed on TP's overnight with 35% FIO2. Afebrile. 12/22 Patient is on TP's with 35% FIO2. Afebrile. For US abdomen today per GI. Objective Vital Signs Date Time Temp Pulse Resp B/P (MAP) Pulse Ox O2 Delivery O2 Flow Rate FiO2 12/22/17 07:00 98 T-Piece 8.00 35 Humidified 12/22/17 06:00 106 12/22/17 04:00 97.6 22 141/65 (90) Intake and Output 12/22/17 12/22/17 12/23/17 08:00 16:00 00:00 Intake Total 200 ml Output Total 1150 ml Balance -950 ml Result Diagram: 12/22/17 0513 12/22/17 0513 Other Results Laboratory Tests Test 12/22/17 05:13 White Blood Count 11.4 TH/MM3 Red Blood Count 2.85 MIL/MM3 Hemoglobin 9.3 GM/DL Hematocrit 27.8 % Mean Corpuscular Volume 97.5 FL Mean Corpuscular Hemoglobin 32.6 PG Mean Corpuscular Hemoglobin Concent 33.5 % Red Cell Distribution Width 15.4 % Platelet Count 455 TH/MM3 Mean Platelet Volume 8.5 FL Neutrophils (%) (Auto) 76.7 % Lymphocytes (%) (Auto) 12.9 % Monocytes (%) (Auto) 7.8 % Eosinophils (%) (Auto) 2.0 % Basophils (%) (Auto) 0.6 % Neutrophils # (Auto) 8.7 TH/MM3 Lymphocytes # (Auto) 1.5 TH/MM3 Monocytes # (Auto) 0.9 TH/MM3 Eosinophils # (Auto) 0.2 TH/MM3 Basophils # (Auto) 0.1 TH/MM3 CBC Comment DIFF FINAL Differential Comment Blood Urea Nitrogen 11 MG/DL Creatinine 0.58 MG/DL Random Glucose 228 MG/DL Total Protein 6.3 GM/DL Albumin 2.2 GM/DL Calcium Level 8.5 MG/DL Alkaline Phosphatase 1272 U/L Aspartate Amino Transf (AST/SGOT) 69 U/L Alanine Aminotransferase (ALT/SGPT) 145 U/L Total Bilirubin 0.2 MG/DL Sodium Level 137 MEQ/L Potassium Level 4.3 MEQ/L Chloride Level 99 MEQ/L Carbon Dioxide Level 28.6 MEQ/L Anion Gap 9 MEQ/L Estimat Glomerular Filtration Rate 105 ML/MIN Imaging Last Impressions Hepatobiliary Scan Nuclear Medicine 12/18/17 0000 Signed Impressions: Service Date/Time: Monday, December 18, 2017 10:53 - CONCLUSION: 1. Normal uptake and excretion of radiotracer. Dimitri Bird MD ADDENDUM: The there is a air in the report under the medication sections it should read cholecystokinin was administered by slow infusion over 8 minutes beginning at the 60 minute jyoti. Dimitri Bird MD Abdomen/Pelvis CT 12/17/17 0000 Signed Impressions: Service Date/Time: Sunday, December 17, 2017 15:44 - CONCLUSION: 1. There is a trace amount of free air in the upper abdomen anterior to left lobe of the liver and adjacent to the stomach. While nonspecific, this could be related to the G-tube. Suggest correlating with the clinical examination for signs of acute abdomen which would indicate a more concerning cause. 2. Moderately distended ascending and transverse colon. However, no anatomic obstruction is visualized. 3. Signs of fluid overload including bilateral pleural effusions, anasarca, periportal edema, and small volume of free fluid in the abdomen and pelvis. Uziel Troy MD Chest X-Ray 12/16/17 0600 Signed Impressions: Service Date/Time: Saturday, December 16, 2017 04:05 - CONCLUSION: 1. Stable left basilar consolidation/effusion. Possible posterior layering effusion on the right, unchanged. 2. Stable position of life support tubes Dani Titus MD Upper Extremity Ultrasound 12/15/17 0000 Signed Impressions: Service Date/Time: Friday, December 15, 2017 13:57 - CONCLUSION: Nonocclusive thrombus within left internal jugular vein. The remaining venous structures in the left upper extremity appear patent. Uziel Thomas MD Liver Ultrasound 12/12/17 0000 Signed Impressions: Service Date/Time: November 13:20 - CONCLUSION: 1. Marked gallbladder wall thickening with minimal pericholecystic fluid. No stones or sludge. 2. Small bilateral pleural effusions. Dani Titus MD Neck CTA 12/11/17 0000 Signed Impressions: Service Date/Time: Monday, December 11, 2017 23:08 - CONCLUSION: No carotid stenosis. Ac Davis MD Head CTA 12/11/17 0000 Signed Impressions: Service Date/Time: Monday, December 11, 2017 23:08 - CONCLUSION: 1. No large vessel stenosis or aneurysm. Ac Davis MD Brain MRI 12/11/17 0000 Signed Impressions: Service Date/Time: Monday, December 11, 2017 11:12 - CONCLUSION: 1. Faint diffusion restriction predominately along the high right parietal convexity with minimal diffusion restriction on the left. Pattern is somewhat unusual for anoxia with the asymmetry. Possible embolic event. CTA of the cervical and intracranial vessels to be performed for further characterization. 2. Chronic changes with some periventricular small vessel ischemic demyelination. 3. Mild ventricular prominence. In the appropriate clinical setting, findings could represent normal pressure hydrocephalus. 4. Bilateral mastoiditis. Mild chronic sinus disease in the sphenoid bilaterally. Dani Titus MD Gall Bladder Ultrasound 12/03/17 0000 Signed Impressions: Service Date/Time: Sunday, December 03, 2017 07:59 - CONCLUSION: 1. Ascites and bilateral pleural effusions. 2. Mildly distended gallbladder without evidence of wall thickening or cholelithiasis. 3. Otherwise unremarkable exam. Boo Cartwright MD Lumbar Puncture Fluoroscopy 12/02/17 0000 Signed Impressions: Service Date/Time: Saturday, December 02, 2017 15:28 - CONCLUSION: Uncomplicated fluoroscopically guided lumbar puncture. Aly Leigh MD Renal Ultrasound 11/29/17 1656 Signed Impressions: Service Date/Time: Wednesday, November 29, 2017 13:16 - CONCLUSION: 1. Both kidneys are sonographically normal without hydronephrosis or nephrolithiasis. 2. Very abnormal appearance of the gallbladder with mural thickening and minimal pericholecystic fluid Dani Titus MD Head CT 11/28/17 0000 Signed Impressions: Service Date/Time: November 15:46 - CONCLUSION: 1. Ventriculomegaly suggesting central cerebral atrophy versus hydrocephalus. Clinical correlation is recommended. 2. No acute infarct, acute hemorrhage, midline shift or extra-axial fluid collections. Dev Christopher MD Procedures 12/02- lumbar puncture Objective Remarks GENERAL: 61-year-old female on TP's with 35% FIO2. SKIN: Warm and dry. No rash HEAD: Atraumatic. Normocephalic. EYES: Gaze conjugate. Pupils equal and round about 4 mm and reactive to 2 mm bilaterally. No scleral icterus. No injection. Scleral edema improved. ENT: No nasal bleeding or discharge. Mucous membranes pink and moist NECK: Trachea midline. No JVD. CARDIOVASCULAR: RRR. . No murmur RESPIRATORY: B/L equal air entry GASTROINTESTINAL: NGT L nare with tube feeds running. Abdomen soft, non-tender, nondistended. Bowel sounds present.+PEG tube MUSCULOSKELETAL: Edema improved, ~ 1+ of hands and ble. NEUROLOGICAL: Pupils reactive as per above + cough + gag. Eyes open to deep central noxious stimuli. Withdraws with all extremities. Date of Insertion: Nov 28, 2017 Line: Central Venous Catheter Side: Left Location: Internal, Jugular A/P Assessment and Plan Neuro/Psych: Acute encephalopathy secondary to diabetic ketoacidosis Anxiety disorder NOS Benzodiazepine use Off sedation since 12/04. Neurology Dr. Neville Acetaminophen 650 mg by tube every 6 hours as needed fever CT brain 11/28 revealed Ventriculomegaly suggesting central cerebral atrophy versus hydrocephalus. Clinical correlation is recommended. No acute infarct, acute hemorrhage, midline shift or extra-axial fluid collections. UDS negative MRI brain 11/29 revealed mild to moderate ventriculomegaly. EEG - 12/07 bihemispheric slowing. No epileptiform features. EEG 11/28- bihemispheric slowing with some left frontocentral sharp waves and phase reversal suggesting an epileptiform abnormality and possible structural lesion in this region. No ictal pattern present. Neurology -Dr. Neville, on Cerebyx 200mg Q12. Check Dilantin level and hold level for elevated LFT's 12/02 Ophthalmology -no eye infection Lacri-Lube applied for scleral edema 12/02-lumbar puncture-negative. CSF HSV negative 12/03-cortisol level 17 ammonia level 22 12/11 EEG consistent with a severe encephalopathy. There is more prominent slowing over the right hemisphere. MRI brain done on 12/11 with ischemic changes high left parietal lobe however CTA brain with no major vessel stenosis or aneurysm. . CV: History of hypertension Shock, resolved Elevated troponin Acute systolic heart failure ejection fraction 40% NSTEMI cardiomyopathy Monitor HR and BP keep MAP>65mmHg Atorvastatin 10 mg by tube daily on hold for elevated LFT's Continue aspirin 81 mg by tube daily 2D echocardiogram revealed EF around 40%. LV increased size. Septal hypokinesis. 12/03- Cardiology has signed off Resp: Acute hypoxemic respiratory failure Hemoptysis-resolved Tobacco abuse/ongoing Iatrogenic PTX status post chest tube placement Continue with oxygen/TP's as harsha keep sats >92% Ventilator bundle. s/p trach on 12/16 Albuterol/ipratropium aerosols every 6 hours with albuterol aerosols every 2 hours as needed dyspnea Pulm toilet, trach care Status post bronchoscopy 11/29. SBT/TP's daily as harsha GI: Moderate protein energy malnutrition Elevated LFT's On tube feeds- Glucerna 1.5 @ 40 mL/h. NPO for US abdomen today Monitor LFT's, Hep profile negative. famotidine for GI prophylaxis s/p PEG tube placement 12/16 12/18 HIDA scan: unremarkable Docusate sodium/senna 1 tablet twice daily for bowel regimen 12/17 CT abdomen/pelvis from today showed trace amount of free air in the upper abdomen anterior to left lobe of the liver and adjacent to the stomach. this could be related to the G-tube. Moderately distended ascending and transverse colon. No obstruction. 12/12 US Liver: Marked gallbladder wall thickening with minimal pericholecystic fluid. No stones or sludge. Small bilateral pleural effusions. 12/03 gallbladder ultrasound -gallbladder mildly distended without evidence of wall thickening or cholelithiasis. There is ascites and pleural effusions. GI eval noted. Continue multivitamin/thiamine. thiamine via og FEN/RENAL: BRIELLE- resolved Hyponatremia Monitor renal function, I/O's, electrolytes replacement per protocol. Renal ultrasound revealed no medical renal disease. Endo: Insulin-dependent diabetes mellitus type 1 uncontrolled Diabetic ketoacidosis - resolved Originally, patient received 3 L normal saline in the ED along with 3 refills and bicarbonate, 1 ampule of calcium gluconate. Beta hydroxybutyrate cleared 11/29 Insulin pump was disconnected 11/28. According to sister Evelyn Obrien, patient had received a new insulin pump within the past 48 hours [employer]. She has no history of DKA in the past to her knowledge TSH 0.38 Continue SSI Novulog medium protocol with accucheck every 4 hours maintain euglycemia Levemir 7 q12 Heme: Leukocytosis- Resolved Macrocytic anemia Monitor CBC daily. 12/03 transfused 1 unit of packed red blood cells ID: Community-acquired versus aspiration BC x2, UA (-) inf A/B negative 11/29 S/P bronchoscopy with sample sent from left lower lobe 11/29 Sputum (BAL)-E.coli, pansensitive ID is following, Dr. Childs Off abx- monitor for signs of infections ( Fever, WBC) 12/02-lumbar puncture-negative Access PIV in place Prophylaxis -GI -famotidine for stress ulcer prophylaxis -DVT -SCD/continue heparin SQ Doppler US UE: Non-occlusive thrombus left IJ vein Palliative care is following Will sign off and transfer care to [facility] Level 2 Edouard Mayo MD December 22, 2017 07:44
[2017-12-22] MEDS: CHLORHEXIDINE 0.12% (ORAL KIT) 15 ML CUP MT SCH ×2 (08:01→20:32)
[2017-12-22] MEDS: URSODIOL 300 MG CAP PO SCH ×2 (08:02→20:31)
[2017-12-22] MEDS: MULTIVITAMIN TAB PO SCH (08:02)
[2017-12-22] MEDS: FAMOTIDINE 20 MG TAB NG SCH ×2 (08:02→20:31)
[2017-12-22] MEDS: THIAMINE HCL 100 MG TAB OG-TUBE SCH (08:02)
[2017-12-22] MEDS: ARTIFICIAL TEARS OPTH OINT 3.5 APPLIC/3.5 GM TUBO EACH EYE SCH ×4 (08:03→20:31)
[2017-12-22] MEDS: SODIUM CHLORIDE 0.9% FLUSH 10 ML FLUSH IV FLUSH SCH ×3 (08:03→20:31)
[2017-12-22] MEDS: ASPIRIN 81 MG CHEW TAB CHEW SCH (08:03)
[2017-12-22] MEDS: INSULIN DETEMIR 100 UNITS/ML VIAL SQ SCH ×2 (08:03→20:31)
--- NOTE | 2017-12-22 09:45 | HHI.GIFU ---
Subjective Remarks Pt does not open my eyes during exam TF currently turned off, having US liver done today (Karina Flower) Objective Vitals I&O Vital Signs Date Time Temp Pulse Resp B/P (MAP) Pulse Ox O2 Delivery O2 Flow Rate FiO2 12/22/17 08:00 99.3 100 18 144/70 (94) 98 12/22/17 08:00 100 12/22/17 07:00 98 T-Piece 8.00 35 Humidified 12/22/17 06:00 106 12/22/17 04:00 97.6 102 22 141/65 (90) 96 12/22/17 04:00 102 12/22/17 02:00 115 12/22/17 00:00 99 12/22/17 00:00 99.4 99 21 138/64 (88) 95 12/21/17 22:00 129 12/21/17 21:00 96 T-piece 35 12/21/17 20:00 99.7 107 19 143/67 (92) 96 12/21/17 20:00 107 12/21/17 19:00 96 T-Piece 8.00 35 Humidified 12/21/17 18:00 112 12/21/17 16:00 99.1 101 16 142/91 (108) 97 12/21/17 16:00 101 12/21/17 14:00 106 12/21/17 12:00 98.4 98 21 129/60 (83) 90 12/21/17 12:00 98 12/21/17 10:00 107 12/21/17 09:50 94 T-piece 8.00 35 I/O 12/21/17 12/21/17 12/21/17 12/22/17 12/22/17 12/22/17 07:00 15:00 23:00 07:00 15:00 23:00 Intake Total 640 ml 506 ml 200 ml Output Total 2200 ml 1300 ml 1150 ml Balance -1560 ml -794 ml -950 ml Intake Oral 0 ml Tube Feeding 440 ml 506 ml 200 ml Other 200 ml Output Urine Total 2200 ml 1300 ml 1150 ml Stool Total 0 ml # Bowel Movements 1 0 Laboratory Laboratory Tests Test 12/22/17 05:13 White Blood Count 11.4 Red Blood Count 2.85 Hemoglobin 9.3 Hematocrit 27.8 Mean Corpuscular Volume 97.5 Mean Corpuscular Hemoglobin 32.6 Mean Corpuscular Hemoglobin Concent 33.5 Red Cell Distribution Width 15.4 Platelet Count 455 Mean Platelet Volume 8.5 Neutrophils (%) (Auto) 76.7 Lymphocytes (%) (Auto) 12.9 Monocytes (%) (Auto) 7.8 Eosinophils (%) (Auto) 2.0 Basophils (%) (Auto) 0.6 Neutrophils # (Auto) 8.7 Lymphocytes # (Auto) 1.5 Monocytes # (Auto) 0.9 Eosinophils # (Auto) 0.2 Basophils # (Auto) 0.1 CBC Comment DIFF FINAL Differential Comment Blood Urea Nitrogen 11 Creatinine 0.58 Random Glucose 228 Total Protein 6.3 Albumin 2.2 Calcium Level 8.5 Alkaline Phosphatase 1272 Aspartate Amino Transf (AST/SGOT) 69 Alanine Aminotransferase (ALT/SGPT) 145 Total Bilirubin 0.2 Sodium Level 137 Potassium Level 4.3 Chloride Level 99 Carbon Dioxide Level 28.6 Anion Gap 9 Estimat Glomerular Filtration Rate 105 Date/Time Source Procedure Growth Status 12/08/17 06:13 Blood Peripheral Aerobic Blood Culture - Final NO GROWTH IN 5 DAYS Complete 12/08/17 06:13 Blood Peripheral Anaerobic Blood Culture - Final NO GROWTH IN 5 DAYS Complete 12/02/17 15:29 Cerebral Spinal Fluid Lumbar Puncture Gram Stain - Final Complete 12/02/17 15:29 Cerebral Spinal Fluid Lumbar Puncture CSF Culture - Final NO GROWTH IN 72 HOURS Complete 12/08/17 06:00 Sputum Nasal Tracheal Aspirate Gram Stain - Final Complete 12/08/17 06:00 Sputum Culture - Final Escherichia Coli Complete 12/08/17 06:09 Urine Catheterized Urine Urine Culture - Final Anna Glabrata Complete Imaging Last Impressions Hepatobiliary Scan Nuclear Medicine 12/18/17 0000 Signed Impressions: Service Date/Time: Monday, December 18, 2017 10:53 - CONCLUSION: 1. Normal uptake and excretion of radiotracer. Dimtiri Bird MD ADDENDUM: The there is a air in the report under the medication sections it should read cholecystokinin was administered by slow infusion over 8 minutes beginning at the 60 minute jyoti. Dimitri Bird MD Abdomen/Pelvis CT 12/17/17 0000 Signed Impressions: Service Date/Time: Sunday, December 17, 2017 15:44 - CONCLUSION: 1. There is a trace amount of free air in the upper abdomen anterior to left lobe of the liver and adjacent to the stomach. While nonspecific, this could be related to the G-tube. Suggest correlating with the clinical examination for signs of acute abdomen which would indicate a more concerning cause. 2. Moderately distended ascending and transverse colon. However, no anatomic obstruction is visualized. 3. Signs of fluid overload including bilateral pleural effusions, anasarca, periportal edema, and small volume of free fluid in the abdomen and pelvis. Uziel Troy MD Chest X-Ray 12/16/17 0600 Signed Impressions: Service Date/Time: Saturday, December 16, 2017 04:05 - CONCLUSION: 1. Stable left basilar consolidation/effusion. Possible posterior layering effusion on the right, unchanged. 2. Stable position of life support tubes Dani Titus MD Upper Extremity Ultrasound 12/15/17 0000 Signed Impressions: Service Date/Time: Friday, December 15, 2017 13:57 - CONCLUSION: Nonocclusive thrombus within left internal jugular vein. The remaining venous structures in the left upper extremity appear patent. Uziel Thomas MD Liver Ultrasound 12/12/17 0000 Signed Impressions: Service Date/Time: November 13:20 - CONCLUSION: 1. Marked gallbladder wall thickening with minimal pericholecystic fluid. No stones or sludge. 2. Small bilateral pleural effusions. Dani Titus MD Neck CTA 12/11/17 0000 Signed Impressions: Service Date/Time: Monday, December 11, 2017 23:08 - CONCLUSION: No carotid stenosis. Ac Davis MD Head CTA 12/11/17 0000 Signed Impressions: Service Date/Time: Monday, December 11, 2017 23:08 - CONCLUSION: 1. No large vessel stenosis or aneurysm. Ac Davis MD Brain MRI 12/11/17 0000 Signed Impressions: Service Date/Time: Monday, December 11, 2017 11:12 - CONCLUSION: 1. Faint diffusion restriction predominately along the high right parietal convexity with minimal diffusion restriction on the left. Pattern is somewhat unusual for anoxia with the asymmetry. Possible embolic event. CTA of the cervical and intracranial vessels to be performed for further characterization. 2. Chronic changes with some periventricular small vessel ischemic demyelination. 3. Mild ventricular prominence. In the appropriate clinical setting, findings could represent normal pressure hydrocephalus. 4. Bilateral mastoiditis. Mild chronic sinus disease in the sphenoid bilaterally. Dani Titus MD Gall Bladder Ultrasound 12/03/17 0000 Signed Impressions: Service Date/Time: Sunday, December 03, 2017 07:59 - CONCLUSION: 1. Ascites and bilateral pleural effusions. 2. Mildly distended gallbladder without evidence of wall thickening or cholelithiasis. 3. Otherwise unremarkable exam. Boo Cartwright MD Lumbar Puncture Fluoroscopy 12/02/17 0000 Signed Impressions: Service Date/Time: Saturday, December 02, 2017 15:28 - CONCLUSION: Uncomplicated fluoroscopically guided lumbar puncture. Aly Leigh MD Renal Ultrasound 11/29/17 1656 Signed Impressions: Service Date/Time: Wednesday, November 29, 2017 13:16 - CONCLUSION: 1. Both kidneys are sonographically normal without hydronephrosis or nephrolithiasis. 2. Very abnormal appearance of the gallbladder with mural thickening and minimal pericholecystic fluid Dani Titus MD Head CT 11/28/17 0000 Signed Impressions: Service Date/Time: November 15:46 - CONCLUSION: 1. Ventriculomegaly suggesting central cerebral atrophy versus hydrocephalus. Clinical correlation is recommended. 2. No acute infarct, acute hemorrhage, midline shift or extra-axial fluid collections. Dev Christopher MD Physical Exam HEENT: Normocephalic, atraumatic CHEST : Even/unlabored- T piece CARDIAC: RRR ABDOMEN: Mildly distended, semi-firm, bowel sounds active. PEG tube site clean and dry, clamped SKIN: Normal; no rash; no jaundice. (Karina Flower) Assessment and Plan Plan Assessment: - Elevated LFTs- normal on admission on November 28 US liver (12/12) --> Marked gallbladder wall thickening with minimal pericholecystic fluid. No stones or sludge. Small bilateral pleural effusions. CT abdomen and pelvis W IV contrast (12/17) --> There is a trace amount of free air in the upper abdomen anterior to left lobe of the liver and adjacent to the stomach. While nonspecific, this could be related to the G-tube. Suggest correlating with the clinical examination for signs of acute abdomen which would indicate a more concerning cause. Moderately distended ascending and transverse colon. However, no anatomic obstruction is visualized. Signs of fluid overload including bilateral pleural effusions, anasarca, periportal edema, and small volume of free fluid in the abdomen and pelvis. HIDA scan (12/18) --> Normal uptake and excretion of radiotracer. Currently: AST-129 ALT-186 Alk phos-1350 T bili-0.3 Given the course of liver enzyme elevation likely secondary to medication Liver JEWELL: Iron-23 TIBC-241 %sat-9.6 Hepatitis panel negative Alk phos iso enzymes pending, CARLA and ASMA negative AMA and celiac panel pending - Uncontrolled DM- admitted with BGL over 800 in DKA (12/22) Actigall added yesterday, some improvement in LFTs today. TF currently on hold, pt to have US of liver done today. Alk phos iso enzymes intestine-0 bone-40 liver-60. AMA, and celiac panel pending. Liver biopsy if rest of work up does not reveal source of elevation and LFTs do not improve. Plan: Actigall US liver pending AMA and celiac panel pending Avoid hepatotoxins Control of BGL Continue TF recommendations per nutrition Further recommendations based on pending work up Pt has been seen and examined by myself and Dr. Gonzalez and this note is written on her behalf (Karina Flower) Karina Flower December 22, 2017 09:45 Latasha Gonzalez MD December 22, 2017 14:11
--- NOTE | 2017-12-22 11:01 | RADRPT ---
EXAM DATE/TIME: 12/22/2017 09:40 [facility] COMPARISON: BILIARY QUANTITATIVE (HIDA), December 18, 2017, 10:53. CT ABDOMEN & PELVIS W CONTRAST, December 17, 2017, 15:4 4. US ABDOMEN - LIVER, December 12, 2017, 13:20. INDICATIONS : Elevated LFT's. MEDICAL HISTORY : Diabetes. SURGICAL HISTORY : Bilateral cataract surgery. Dental implants. Bunionectomy. ENCOUNTER: Subsequent ACUITY: 1 week PAIN SCORE: Nonresponsive. LOCATION: Right upper quadrant MEASUREMENTS: LIVER: 17.6 cm length COMMON DUCT: 3 mm RIGHT KIDNEY: 10.5 x 5.6 x 4.4 cm SPLEEN: 5.2 cm length FINDINGS: LIVER: Normal echotexture without focal lesion or ductal dilatation. There is trace perihepatic free fluid. COMMON DUCT: No intraluminal mass or stone visualized. GALLBLADDER: No stones and negative sonographic Bush's sign. There is trace pericholecystic fluid. Wall thicknes s is 7 mm, decreased from the prior exam. PANCREAS: The visualized portions are within normal limits. RIGHT KIDNEY: No hydronephrosis, stone or mass. SPLEEN: No focal lesion. There are bilateral pleural effusions. CONCLUSION: 1. Liver demonstrates no acute finding. However, there is a small volume of free fluid in the abdomen in a perihepatic location. 2. Persistent but overall decreased gallbladder wall thickening. 3. Bilateral pleural effusions. Uziel Troy MD on December 22, 2017 at 10:56 Board Certified Radiologist. This report was verified electronically.
[2017-12-23] VITALS (16 sets, daily range): BP systolic 131–165; BP diastolic 63–100; PULSE 76–114; RESP 13–93; TEMP 97.2–99; O2SAT 74–100
[2017-12-23] MEDS: INSULIN ASPART SUPPLEMENTAL SCALE SQ SCH ×7 (00:53→23:57)
[2017-12-23] MEDS: HEPARIN SODIUM - SQ 10,000 UNITS/ML VIAL SQ SCH ×3 (00:53→18:27)
[2017-12-23] MEDS: CHLORHEXIDINE GLUCONATE 2 % 1 PACK (2 CLOTHS) TOP SCH (04:00)
[2017-12-23] MEDS: RESP: ALBUTEROL 2.5 MG/IPRATROPIUM 0.5 MG NEB (SCH) NEB ×2 (04:39→07:27)
--- NOTE | 2017-12-23 05:10 | RADRPT ---
EXAM DATE/TIME: 12/23/2017 04:28 [facility] COMPARISON: CHEST SINGLE AP, December 16, 2017, 14:01. CHEST SINGLE AP, December 16, 2017, 4:05. INDICATIONS : Shortness of breath, possible pulmonary disease. MEDICAL HISTORY : Diabetes mellitus type II. SURGICAL HISTORY : None. ENCOUNTER: Subsequent ACUITY: 3 weeks PAIN SCORE: Non-responsive. LOCATION: Bilateral chest FINDINGS: A single view of the chest demonstrates the tracheostomy tube, bilateral lower lobe consolidations an d pleural effusions are stable. Upper lungs remain clear.. The cardiomediastinal contours are unrema rkable. Osseous structures are intact. CONCLUSION: Consolidations and pleural effusions are unchanged. Tracheostomy tube in good position. Landon Graham MD on December 23, 2017 at 5:08 Board Certified Radiologist. This report was verified electronically.
[2017-12-23 06:57] LABS: AUTOMATED NEUTROPHIL # 6.7 TH/MM3 (1.8-7.7); BASOPHIL # 0.1 TH/MM3 (0-0.2); BASOPHIL % 0.6 % (0.0-2.0); EOSINOPHIL # 0.5 TH/MM3 (0-0.4); EOSINOPHIL % 4.9 % (0.0-4.0); HEMATOCRIT 27.1 % (35.0-46.0); HEMOGLOBIN 9.3 GM/DL (11.6-15.3); LYMPH % 18.2 % (9.0-44.0); LYMPHOCYTE # 1.8 TH/MM3 (1.0-4.8); MEAN CORPUSCULAR HEMOGLOBIN 33.2 PG (27.0-34.0); MEAN CORPUSCULAR HGB CONC 34.2 % (32.0-36.0); MEAN PLATELET VOLUME 8.7 FL (7.0-11.0); MONO % 10.2 % (0.0-8.0); NEUT % 66.1 % (16.0-70.0); PLATELET COUNT 459 TH/MM3 (150-450); RED CELL DISTRIBUTION WIDTH 14.9 % (11.6-17.2); WHITE BLOOD COUNT 10.1 TH/MM3 (4.0-11.0)
[2017-12-23 07:14] LABS: ALBUMIN 2.2 GM/DL (3.4-5.0); ALT (GPT) 120 U/L (10-53); AST (GOT) 56 U/L (15-37); BICARBONATE 28.9 MEQ/L (21.0-32.0); BLOOD UREA NITROGEN 11 MG/DL (7-18); CALCIUM 8.7 MG/DL (8.5-10.1); CHLORIDE 99 MEQ/L (98-107); GLOMERULAR FILTRATION RATE 124 ML/MIN (>89); GLUCOSE,RANDOM 150 MG/DL (74-106); PHOSPHORUS 3.6 MG/DL (2.5-4.9); SODIUM (NA) 137 MEQ/L (136-145)
[2017-12-23 07:28] LABS: ALKALINE PHOSPHATASE 1062 U/L (45-117); TOTAL BILIRUBIN ADULT 0.2 MG/DL (0.2-1.0); TOTAL PROTEIN 6.2 GM/DL (6.4-8.2)
--- NOTE | 2017-12-23 07:30 | HHI.PR ---
Review/Management Diagnosis/Plan: (1) Seizure cerebral ICD Codes: I67.89 - Other cerebrovascular disease Status: Acute Plan: likely metabolic sz's severe metabolic encephalopathy 12/04 eeg reviewed csf negative. hsv pcr negative wbc 6, protein 32 f/u eeg 12/16 no sz activity mri brain with rt high cortical lesions>left. suggestive of hypoxic/hypotensive event recs moderate encephalopathy f/u eeg; dilantin and phb was stopped? GI w/u underway; elevated lft's long-term care when medically stable (2) Encephalopathy, metabolic ICD Codes: G93.41 - Metabolic encephalopathy Status: Acute Plan: 2/2 dka, renal failure, post-sz activity (3) Acute renal failure ICD Codes: N17.9 - Acute kidney failure, unspecified Status: Acute Plan: hydration/per ccm (4) DKA (diabetic ketoacidoses) ICD Codes: E13.10 - Other specified diabetes mellitus with ketoacidosis without coma Status: Resolved Plan: per ccm Subjective Subjective Comments No acute events reported Active Medications Current Medications Medications (Trade) Dose Ordered Sig/Kenna Route Start Time Stop Time Status Last Admin (NS Flush) 2 ml UNSCH PRN IV FLUSH 11/28/17 16:00 12/22/17 20:31 (NS Flush) 2 ml BID IV FLUSH 11/28/17 21:00 12/22/17 20:31 (Albuterol Neb) 2.5 mg Q2HR NEB PRN INH 11/28/17 16:00 12/13/17 02:48 (Milk Of Magnesia Liq) 30 ml Q12H PRN PO 11/28/17 16:00 (Senokot) 17.2 mg Q12H PRN PO 11/28/17 16:00 (Dulcolax Supp) 10 mg DAILY PRN RECTAL 11/28/17 16:00 (Lactulose Liq) 30 ml DAILY PRN PO 11/28/17 16:00 (Zofran Inj) 4 mg Q6H PRN IV PUSH 11/28/17 16:15 (Heparin Inj) 5,000 units Q8H SQ 11/28/17 18:00 Future hold 12/23/17 00:53 Miscellaneous Information 1 Q361D XX 11/28/17 16:15 11/28/17 16:15 (Chlorhexidine 2% Cloth) Taper DAILY@04 TOP 11/29/17 04:00 11/25/18 03:59 12/23/17 04:00 (Chlorhexidine 2% Cloth) 3 pack UNSCH PRN TOP 11/28/17 16:15 (Flonase Willem Spr) 1 spray BID EACH NARE 11/28/17 21:00 Future Hold (Theragran) 1 tab DAILY PO 11/29/17 09:00 12/22/17 08:02 (D50w (Vial) Inj) 50 ml UNSCH PRN IV PUSH 11/29/17 07:15 12/18/17 20:24 (Glucagon Inj) 1 mg UNSCH PRN OTHER 11/29/17 07:15 (Levemir Inj) 8 units BID SQ 11/29/17 09:00 Future Hold 11/29/17 22:11 Potassium Chloride 100 ml @ 50 mls/hr Q2H PRN IV 11/29/17 07:15 Potassium Chloride 100 ml @ 50 mls/hr Q2H PRN IV 11/29/17 07:15 (K-Lyte Cl Eff) 50 meq UNSCH PRN PO 11/29/17 07:15 Potassium Chloride 100 ml @ 25 mls/hr UNSCH PRN IV 11/29/17 07:15 Potassium Chloride 100 ml @ 50 mls/hr Q2H PRN IV 11/29/17 07:15 Magnesium Sulfate 4 gm/Sodium Chloride 100 ml @ 50 mls/hr UNSCH PRN IV 11/29/17 07:15 (Mag-Ox) 800 mg UNSCH PRN PO 11/29/17 07:15 Magnesium Sulfate 2 gm/Sodium Chloride 100 ml @ 50 mls/hr UNSCH PRN IV 11/29/17 07:15 (K-Phos) 2,000 mg Q4H PRN PO 11/29/17 07:15 Sodium Phosphate 30 mmol/Sodium Chloride 250 ml @ 42 mls/hr UNSCH PRN IV 11/29/17 07:15 11/30/17 05:30 (K-Phos) 2,000 mg UNSCH PRN PO/TUBE 11/29/17 07:15 Potassium Phosphate 30 mmol/ Sodium Chloride 260 ml @ 42 mls/hr UNSCH PRN IV 11/29/17 07:15 12/01/17 12:05 (Peridex 0.12% Liq) 15 ml BID@08,20 MT 11/29/17 08:00 12/22/17 20:32 (Tylenol 650 Mg/ 20 ml Liq) 650 mg Q6H PRN NG 11/29/17 10:00 12/09/17 09:24 (Brethine Inj) 1 mg UNSCH PRN SQ 11/29/17 10:00 (NovoLOG SUPPLEMENTAL SCALE) 1 Q4HR SQ 11/29/17 12:00 12/23/17 00:53 (NS Flush) DAILY IV FLUSH 11/30/17 09:00 12/22/17 08:03 (NS Flush) UNSCH PRN IV FLUSH 11/29/17 11:15 (Aspirin Chew) 81 mg DAILY CHEW 11/30/17 09:00 12/22/17 08:03 (Lipitor) 10 mg HS PO 11/29/17 21:00 Future Hold 12/12/17 22:13 (Cerebyx Inj) 200 mgpe Q12HR IV 11/30/17 21:00 Future Hold 12/18/17 21:24 (Lacrilube Opht Oint) 1 applic QID EACH EYE 12/03/17 18:00 12/22/17 20:31 (Vitamin B1) 100 mg DAILY OG-TUBE 12/08/17 09:00 12/22/17 08:02 (Levemir Inj) 7 units Q12HR SQ 12/08/17 09:00 12/22/17 20:31 (Pepcid) 20 mg BID NG 12/11/17 21:00 12/22/17 20:31 (Duoneb Neb) 1 ampule Q6HR NEB NEB 12/19/17 10:00 12/23/17 04:39 (Duoneb Neb) 1 ampule Q2HR NEB PRN NEB 12/19/17 10:00 (Actigall) 300 mg Q12HR PO 12/21/17 21:00 12/22/17 20:31 Allergies Allergies Coded Allergies No Known Allergies (Unverified Allergy, Unknown, 11/28/17) Review of Systems All other ROS: Unable to obtain Exam I&O / VS Vital Signs Date Time Temp Pulse Resp B/P (MAP) Pulse Ox O2 Delivery O2 Flow Rate FiO2 12/23/17 06:00 102 16 142/76 (98) 100 12/23/17 06:00 102 12/23/17 05:00 97 18 134/69 (90) 100 12/23/17 05:00 97 12/23/17 04:00 98.4 97 31 141/71 (94) 100 12/23/17 04:00 97 12/23/17 02:00 84 12/23/17 02:00 84 52 141/67 (91) 100 12/23/17 01:00 89 32 131/68 (89) 100 12/23/17 01:00 89 12/23/17 00:00 114 12/23/17 00:00 98.7 114 93 152/70 (97) 100 12/22/17 22:00 115 35 141/69 (93) 100 12/22/17 22:00 115 12/22/17 21:00 102 58 138/65 (89) 99 12/22/17 21:00 102 12/22/17 20:00 98.4 102 64 142/67 (92) 99 12/22/17 20:00 102 12/22/17 19:00 100 T-Piece 8.00 40 Humidified 12/22/17 18:00 110 12/22/17 16:00 99.1 86 53 128/67 (87) 100 12/22/17 16:00 86 12/22/17 14:00 74 12/22/17 12:00 91 12/22/17 10:18 100 T-piece 5.00 28 12/22/17 10:00 78 12/22/17 08:00 99.3 100 18 144/70 (94) 98 12/22/17 08:00 100 Exam Comments alert, non-verbal, not following, diminished blink to threat, spontaneous eye blinking, ou 4.5-3.5mm, eomi, grimaces to tactile on rt side of face, left facial weakness, increased tone rt ue, left spastic hemiplegia Objective Micro and Labs Laboratory Tests Test 12/23/17 06:01 White Blood Count 10.1 Red Blood Count 2.80 Hemoglobin 9.3 Hematocrit 27.1 Mean Corpuscular Volume 97.0 Mean Corpuscular Hemoglobin 33.2 Mean Corpuscular Hemoglobin Concent 34.2 Red Cell Distribution Width 14.9 Platelet Count 459 Mean Platelet Volume 8.7 Neutrophils (%) (Auto) 66.1 Lymphocytes (%) (Auto) 18.2 Monocytes (%) (Auto) 10.2 Eosinophils (%) (Auto) 4.9 Basophils (%) (Auto) 0.6 Neutrophils # (Auto) 6.7 Lymphocytes # (Auto) 1.8 Monocytes # (Auto) 1.0 Eosinophils # (Auto) 0.5 Basophils # (Auto) 0.1 CBC Comment DIFF FINAL Differential Comment Blood Urea Nitrogen 11 Creatinine 0.50 Random Glucose 150 Albumin 2.2 Calcium Level 8.7 Phosphorus Level 3.6 Magnesium Level 2.0 Aspartate Amino Transf (AST/SGOT) 56 Alanine Aminotransferase (ALT/SGPT) 120 Sodium Level 137 Potassium Level 4.4 Chloride Level 99 Carbon Dioxide Level 28.9 Anion Gap 9 Estimat Glomerular Filtration Rate 124 Date/Time Source Procedure Growth Status 12/08/17 06:13 Blood Peripheral Aerobic Blood Culture - Final NO GROWTH IN 5 DAYS Complete 12/08/17 06:13 Blood Peripheral Anaerobic Blood Culture - Final NO GROWTH IN 5 DAYS Complete 12/02/17 15:29 Cerebral Spinal Fluid Lumbar Puncture Gram Stain - Final Complete 12/02/17 15:29 Cerebral Spinal Fluid Lumbar Puncture CSF Culture - Final NO GROWTH IN 72 HOURS Complete 12/08/17 06:00 Sputum Nasal Tracheal Aspirate Gram Stain - Final Complete 12/08/17 06:00 Sputum Culture - Final Escherichia Coli Complete 12/08/17 06:09 Urine Catheterized Urine Urine Culture - Final Anna Glabrata Complete Problem Qualifiers (1) Acute renal failure: Qualified Codes: N17.9 - Acute kidney failure, unspecified (2) DKA (diabetic ketoacidoses): Qualified Codes: E10.11 - Type 1 diabetes mellitus with ketoacidosis with coma Brijesh Neville MD December 23, 2017 07:30
[2017-12-23] MEDS: MULTIVITAMIN TAB PO SCH (08:43)
[2017-12-23] MEDS: ASPIRIN 81 MG CHEW TAB CHEW SCH (08:43)
[2017-12-23] MEDS: THIAMINE HCL 100 MG TAB OG-TUBE SCH (08:43)
[2017-12-23] MEDS: FAMOTIDINE 20 MG TAB NG SCH ×2 (08:43→21:02)
[2017-12-23] MEDS: URSODIOL 300 MG CAP PO SCH ×2 (08:43→21:02)
[2017-12-23] MEDS: SODIUM CHLORIDE 0.9% FLUSH 10 ML FLUSH IV FLUSH SCH ×3 (08:44→21:01)
[2017-12-23] MEDS: INSULIN DETEMIR 100 UNITS/ML VIAL SQ SCH ×2 (08:44→21:02)
[2017-12-23] MEDS: CHLORHEXIDINE 0.12% (ORAL KIT) 15 ML CUP MT SCH ×2 (08:45→20:00)
[2017-12-23] MEDS: ARTIFICIAL TEARS OPTH OINT 3.5 APPLIC/3.5 GM TUBO EACH EYE SCH ×4 (08:45→21:01)
--- NOTE | 2017-12-23 10:51 | HHI.GIFU ---
Subjective Remarks Pt resting in bed. Trach. Unresponsive. TF running 40ml/hr (Lanette Spears) Objective Vitals I&O Vital Signs Date Time Temp Pulse Resp B/P (MAP) Pulse Ox O2 Delivery O2 Flow Rate FiO2 12/23/17 08:00 83 12/23/17 07:27 95 T-piece 6.00 28 12/23/17 07:00 100 T-Piece 8.00 40 12/23/17 06:00 102 16 142/76 (98) 100 12/23/17 06:00 102 12/23/17 05:00 97 18 134/69 (90) 100 12/23/17 05:00 97 12/23/17 04:00 98.4 97 31 141/71 (94) 100 12/23/17 04:00 97 12/23/17 02:00 84 12/23/17 02:00 84 52 141/67 (91) 100 12/23/17 01:00 89 32 131/68 (89) 100 12/23/17 01:00 89 12/23/17 00:00 114 12/23/17 00:00 98.7 114 93 152/70 (97) 100 12/22/17 22:00 115 35 141/69 (93) 100 12/22/17 22:00 115 12/22/17 21:00 102 58 138/65 (89) 99 12/22/17 21:00 102 12/22/17 20:00 98.4 102 64 142/67 (92) 99 12/22/17 20:00 102 12/22/17 19:00 100 T-Piece 8.00 40 Humidified 12/22/17 18:00 110 12/22/17 16:00 99.1 86 53 128/67 (87) 100 12/22/17 16:00 86 12/22/17 14:00 74 12/22/17 12:00 91 I/O 12/22/17 12/22/17 12/22/17 12/23/17 12/23/17 12/23/17 07:00 15:00 23:00 07:00 15:00 23:00 Intake Total 200 ml 393 ml 419 ml Output Total 1150 ml 975 ml 800 ml Balance -950 ml -582 ml -381 ml Tube Feeding 200 ml 393 ml 419 ml Output Urine Total 1150 ml 975 ml 800 ml Stool Total 0 ml # Bowel Movements 0 0 Laboratory Laboratory Tests Test 12/23/17 06:01 White Blood Count 10.1 Red Blood Count 2.80 Hemoglobin 9.3 Hematocrit 27.1 Mean Corpuscular Volume 97.0 Mean Corpuscular Hemoglobin 33.2 Mean Corpuscular Hemoglobin Concent 34.2 Red Cell Distribution Width 14.9 Platelet Count 459 Mean Platelet Volume 8.7 Neutrophils (%) (Auto) 66.1 Lymphocytes (%) (Auto) 18.2 Monocytes (%) (Auto) 10.2 Eosinophils (%) (Auto) 4.9 Basophils (%) (Auto) 0.6 Neutrophils # (Auto) 6.7 Lymphocytes # (Auto) 1.8 Monocytes # (Auto) 1.0 Eosinophils # (Auto) 0.5 Basophils # (Auto) 0.1 CBC Comment DIFF FINAL Differential Comment Blood Urea Nitrogen 11 Creatinine 0.50 Random Glucose 150 Total Protein 6.2 Albumin 2.2 Calcium Level 8.7 Phosphorus Level 3.6 Magnesium Level 2.0 Alkaline Phosphatase 1062 Aspartate Amino Transf (AST/SGOT) 56 Alanine Aminotransferase (ALT/SGPT) 120 Total Bilirubin 0.2 Sodium Level 137 Potassium Level 4.4 Chloride Level 99 Carbon Dioxide Level 28.9 Anion Gap 9 Estimat Glomerular Filtration Rate 124 Date/Time Source Procedure Growth Status 12/08/17 06:13 Blood Peripheral Aerobic Blood Culture - Final NO GROWTH IN 5 DAYS Complete 12/08/17 06:13 Blood Peripheral Anaerobic Blood Culture - Final NO GROWTH IN 5 DAYS Complete 12/02/17 15:29 Cerebral Spinal Fluid Lumbar Puncture Gram Stain - Final Complete 12/02/17 15:29 Cerebral Spinal Fluid Lumbar Puncture CSF Culture - Final NO GROWTH IN 72 HOURS Complete 12/08/17 06:00 Sputum Nasal Tracheal Aspirate Gram Stain - Final Complete 12/08/17 06:00 Sputum Culture - Final Escherichia Coli Complete 12/08/17 06:09 Urine Catheterized Urine Urine Culture - Final Anna Glabrata Complete Imaging Last Impressions Chest X-Ray 12/23/17 0600 Signed Impressions: Service Date/Time: Saturday, December 23, 2017 04:28 - CONCLUSION: Consolidations and pleural effusions are unchanged. Tracheostomy tube in good position. Landon Graham MD Liver Ultrasound 12/22/17 0000 Signed Impressions: Service Date/Time: Friday, December 22, 2017 09:40 - CONCLUSION: 1. Liver demonstrates no acute finding. However, there is a small volume of free fluid in the abdomen in a perihepatic location. 2. Persistent but overall decreased gallbladder wall thickening. 3. Bilateral pleural effusions. Uziel Troy MD Hepatobiliary Scan Nuclear Medicine 12/18/17 0000 Signed Impressions: Service Date/Time: Monday, December 18, 2017 10:53 - CONCLUSION: 1. Normal uptake and excretion of radiotracer. Dimitri Bird MD ADDENDUM: The there is a air in the report under the medication sections it should read cholecystokinin was administered by slow infusion over 8 minutes beginning at the 60 minute jyoti. Dimitri Bird MD Abdomen/Pelvis CT 12/17/17 Signed Impressions: Service Date/Time: Sunday, December 17, 2017 15:44 - CONCLUSION: 1. There is a trace amount of free air in the upper abdomen anterior to left lobe of the liver and adjacent to the stomach. While nonspecific, this could be related to the G-tube. Suggest correlating with the clinical examination for signs of acute abdomen which would indicate a more concerning cause. 2. Moderately distended ascending and transverse colon. However, no anatomic obstruction is visualized. 3. Signs of fluid overload including bilateral pleural effusions, anasarca, periportal edema, and small volume of free fluid in the abdomen and pelvis. Uziel Troy MD Upper Extremity Ultrasound 12/15/17 Signed Impressions: Service Date/Time: Friday, December 15, 2017 13:57 - CONCLUSION: Nonocclusive thrombus within left internal jugular vein. The remaining venous structures in the left upper extremity appear patent. Uziel Thomas MD Neck CTA 12/11/17 Signed Impressions: Service Date/Time: Monday, December 11, 2017 23:08 - CONCLUSION: No carotid stenosis. Ac Davis MD Head CTA 12/11/17 Signed Impressions: Service Date/Time: Monday, December 11, 2017 23:08 - CONCLUSION: 1. No large vessel stenosis or aneurysm. Ac Davis MD Brain MRI 12/11/17 Signed Impressions: Service Date/Time: Monday, December 11, 2017 11:12 - CONCLUSION: 1. Faint diffusion restriction predominately along the high right parietal convexity with minimal diffusion restriction on the left. Pattern is somewhat unusual for anoxia with the asymmetry. Possible embolic event. CTA of the cervical and intracranial vessels to be performed for further characterization. 2. Chronic changes with some periventricular small vessel ischemic demyelination. 3. Mild ventricular prominence. In the appropriate clinical setting, findings could represent normal pressure hydrocephalus. 4. Bilateral mastoiditis. Mild chronic sinus disease in the sphenoid bilaterally. Dani Titus MD Gall Bladder Ultrasound 12/03/17 0000 Signed Impressions: Service Date/Time: Sunday, December 03, 2017 07:59 - CONCLUSION: 1. Ascites and bilateral pleural effusions. 2. Mildly distended gallbladder without evidence of wall thickening or cholelithiasis. 3. Otherwise unremarkable exam. Boo Cartwright MD Lumbar Puncture Fluoroscopy 12/02/17 0000 Signed Impressions: Service Date/Time: Saturday, December 02, 2017 15:28 - CONCLUSION: Uncomplicated fluoroscopically guided lumbar puncture. Aly Leigh MD Renal Ultrasound 11/29/17 1656 Signed Impressions: Service Date/Time: Wednesday, November 29, 2017 13:16 - CONCLUSION: 1. Both kidneys are sonographically normal without hydronephrosis or nephrolithiasis. 2. Very abnormal appearance of the gallbladder with mural thickening and minimal pericholecystic fluid Dani Titus MD Head CT 11/28/17 0000 Signed Impressions: Service Date/Time: November 15:46 - CONCLUSION: 1. Ventriculomegaly suggesting central cerebral atrophy versus hydrocephalus. Clinical correlation is recommended. 2. No acute infarct, acute hemorrhage, midline shift or extra-axial fluid collections. Dev Christopher MD Physical Exam HEENT: Normocephalic, atraumatic CHEST : CTA- T piece CARDIAC: RRR ABDOMEN: Mildly distended, soft, bowel sounds active. PEG tube site clean and dry SKIN: Normal; no rash; no jaundice. (Lanette Spears) Assessment and Plan Plan Assessment: - Elevated LFTs- normal on admission on November 28 US liver (12/12) --> Marked gallbladder wall thickening with minimal pericholecystic fluid. No stones or sludge. Small bilateral pleural effusions. CT abdomen and pelvis W IV contrast (12/17) --> There is a trace amount of free air in the upper abdomen anterior to left lobe of the liver and adjacent to the stomach. While nonspecific, this could be related to the G-tube. Suggest correlating with the clinical examination for signs of acute abdomen which would indicate a more concerning cause. Moderately distended ascending and transverse colon. However, no anatomic obstruction is visualized. Signs of fluid overload including bilateral pleural effusions, anasarca, periportal edema, and small volume of free fluid in the abdomen and pelvis. HIDA scan (12/18) --> Normal uptake and excretion of radiotracer. Currently: AST-129 ALT-186 Alk phos-1350 T bili-0.3 Given the course of liver enzyme elevation likely secondary to medication Liver JEWELL: Iron-23 TIBC-241 %sat-9.6 Hepatitis panel negative Alk phos iso enzymes pending, CARLA and ASMA negative AMA and celiac panel pending - Uncontrolled DM- admitted with BGL over 800 in DKA (12/22) Actigall added yesterday, some improvement in LFTs today. TF currently on hold, pt to have US of liver done today. Alk phos iso enzymes intestine-0 bone-40 liver-60. AMA, and celiac panel pending. Liver biopsy if rest of work up does not reveal source of elevation and LFTs do not improve. 12/23/17 LFTs are trending down. ALP bone 40, liver 60. US shows persistent but improving GB wall thickening, small amt perihepatic fluid. liver w/u so far unremarkable. Plan: -continue Actigall -await AMA and celiac panel pending - TF per nutrition - consider liver bx if AMA and celiac neg and LFTs remain elevated Pt has been seen and examined by myself and Dr Newberry and this note is his behalf (Lanette Spears) Physician Comments Seen and examined with [employer]CHNICIAN, tolerating TF. Liver jewell in progress. (Brendan Newberry MD) Lanette Spears December 23, 2017 10:51 Brendan Newberry MD December 23, 2017 15:02
--- NOTE | 2017-12-23 17:28 | HHI.PR ---
Subjective Remarks patient on T puiece- 40% appears comfortable non verbal not ff commands no purposeful movement Objective Vitals Vital Signs Date Time Temp Pulse Resp B/P (MAP) Pulse Ox O2 Delivery O2 Flow Rate FiO2 12/23/17 14:00 98 12/23/17 12:00 97.2 77 14 161/70 (100) 99 12/23/17 12:00 77 12/23/17 10:00 82 12/23/17 08:00 83 12/23/17 08:00 97.8 83 14 162/74 (103) 100 12/23/17 07:27 95 T-piece 6.00 28 12/23/17 07:00 100 T-Piece 8.00 40 12/23/17 06:00 102 16 142/76 (98) 100 12/23/17 06:00 102 12/23/17 05:00 97 18 134/69 (90) 100 12/23/17 05:00 97 12/23/17 04:00 98.4 97 31 141/71 (94) 100 12/23/17 04:00 97 12/23/17 02:00 84 12/23/17 02:00 84 52 141/67 (91) 100 12/23/17 01:00 89 32 131/68 (89) 100 12/23/17 01:00 89 12/23/17 00:00 114 12/23/17 00:00 98.7 114 93 152/70 (97) 100 12/22/17 22:00 115 35 141/69 (93) 100 12/22/17 22:00 115 12/22/17 21:00 102 58 138/65 (89) 99 12/22/17 21:00 102 12/22/17 20:00 98.4 102 64 142/67 (92) 99 12/22/17 20:00 102 12/22/17 19:00 100 T-Piece 8.00 40 Humidified 12/22/17 18:00 110 I/O 12/22/17 12/22/17 12/22/17 12/23/17 12/23/17 12/23/17 07:00 15:00 23:00 07:00 15:00 23:00 Intake Total 200 ml 393 ml 419 ml Output Total 1150 ml 975 ml 800 ml Balance -950 ml -582 ml -381 ml Tube Feeding 200 ml 393 ml 419 ml Output Urine Total 1150 ml 975 ml 800 ml Stool Total 0 ml # Bowel Movements 0 0 Result Diagram: 12/23/17 0601 12/23/17600 Imaging Last Impressions Chest X-Ray 12/23/17 06 Signed Impressions: Service Date/Time: Saturday, December 23, 2017 04:28 - CONCLUSION: Consolidations and pleural effusions are unchanged. Tracheostomy tube in good position. Landon Graham MD Liver Ultrasound 12/22/17 0000 Signed Impressions: Service Date/Time: Friday, December 22, 2017 09:40 - CONCLUSION: 1. Liver demonstrates no acute finding. However, there is a small volume of free fluid in the abdomen in a perihepatic location. 2. Persistent but overall decreased gallbladder wall thickening. 3. Bilateral pleural effusions. Uziel Troy MD Hepatobiliary Scan Nuclear Medicine 12/18/17 0000 Signed Impressions: Service Date/Time: Monday, December 18, 2017 10:53 - CONCLUSION: 1. Normal uptake and excretion of radiotracer. Dimitri Bird MD ADDENDUM: The there is a air in the report under the medication sections it should read cholecystokinin was administered by slow infusion over 8 minutes beginning at the 60 minute jyoti. Dimitri Bird MD Abdomen/Pelvis CT 12/17/17 0000 Signed Impressions: Service Date/Time: Sunday, December 17, 2017 15:44 - CONCLUSION: 1. There is a trace amount of free air in the upper abdomen anterior to left lobe of the liver and adjacent to the stomach. While nonspecific, this could be related to the G-tube. Suggest correlating with the clinical examination for signs of acute abdomen which would indicate a more concerning cause. 2. Moderately distended ascending and transverse colon. However, no anatomic obstruction is visualized. 3. Signs of fluid overload including bilateral pleural effusions, anasarca, periportal edema, and small volume of free fluid in the abdomen and pelvis. Uziel Troy MD Upper Extremity Ultrasound 12/15/17 0000 Signed Impressions: Service Date/Time: Friday, December 15, 2017 13:57 - CONCLUSION: Nonocclusive thrombus within left internal jugular vein. The remaining venous structures in the left upper extremity appear patent. Uziel Thomas MD Neck CTA 12/11/17 0000 Signed Impressions: Service Date/Time: Monday, December 11, 2017 23:08 - CONCLUSION: No carotid stenosis. Ac Davis MD Head CTA 12/11/17 0000 Signed Impressions: Service Date/Time: Monday, December 11, 2017 23:08 - CONCLUSION: 1. No large vessel stenosis or aneurysm. Ac Davis MD Brain MRI 12/11/17 0000 Signed Impressions: Service Date/Time: Monday, December 11, 2017 11:12 - CONCLUSION: 1. Faint diffusion restriction predominately along the high right parietal convexity with minimal diffusion restriction on the left. Pattern is somewhat unusual for anoxia with the asymmetry. Possible embolic event. CTA of the cervical and intracranial vessels to be performed for further characterization. 2. Chronic changes with some periventricular small vessel ischemic demyelination. 3. Mild ventricular prominence. In the appropriate clinical setting, findings could represent normal pressure hydrocephalus. 4. Bilateral mastoiditis. Mild chronic sinus disease in the sphenoid bilaterally. Dani Titus MD Gall Bladder Ultrasound 12/03/17 0000 Signed Impressions: Service Date/Time: Sunday, December 03, 2017 07:59 - CONCLUSION: 1. Ascites and bilateral pleural effusions. 2. Mildly distended gallbladder without evidence of wall thickening or cholelithiasis. 3. Otherwise unremarkable exam. Boo Cartwright MD Lumbar Puncture Fluoroscopy 12/02/17 0000 Signed Impressions: Service Date/Time: Saturday, December 02, 2017 15:28 - CONCLUSION: Uncomplicated fluoroscopically guided lumbar puncture. Aly Leigh MD Renal Ultrasound 11/29/17 1656 Signed Impressions: Service Date/Time: Wednesday, November 29, 2017 13:16 - CONCLUSION: 1. Both kidneys are sonographically normal without hydronephrosis or nephrolithiasis. 2. Very abnormal appearance of the gallbladder with mural thickening and minimal pericholecystic fluid Dani Titus MD Head CT 11/28/17 0000 Signed Impressions: Service Date/Time: November 15:46 - CONCLUSION: 1. Ventriculomegaly suggesting central cerebral atrophy versus hydrocephalus. Clinical correlation is recommended. 2. No acute infarct, acute hemorrhage, midline shift or extra-axial fluid collections. Dev Christopher MD Objective Remarks + resistance when tried to raise eyelids anciteric no nuchal rigditiy no rales regular rhythm abdmen soft, good bowel sounds reyes in place no edema Procedures 12/02- lumbar puncture Urinary Catheter: Yes Assessment to: Continue Reyes insert reason: Prolonged Immobilization Date of Insertion: Nov 28, 2017 Line: Central Venous Catheter Side: Left Location: Internal, Jugular A/P Problem List: (1) Macrocytic anemia ICD Code: D53.9 - Nutritional anemia, unspecified (2) Leukocytosis ICD Code: D72.829 - Elevated white blood cell count, unspecified Status: Resolved (3) Acute kidney injury ICD Code: N17.9 - Acute kidney failure, unspecified (4) Hyponatremia ICD Code: E87.1 - Hypo-osmolality and hyponatremia (5) Hypotension ICD Code: I95.9 - Hypotension, unspecified (6) DM type 1 (diabetes mellitus, type 1) ICD Code: E10.9 - DM type 1 (diabetes mellitus, type 1) Status: Acute (7) DKA (diabetic ketoacidoses) ICD Code: E13.10 - Other specified diabetes mellitus with ketoacidosis without coma Status: Resolved (8) Acute renal failure ICD Code: N17.9 - Acute kidney failure, unspecified Status: Acute (9) Hyperkalemia ICD Code: E87.5 - Hyperkalemia Status: Acute (10) Shock ICD Code: R57.9 - Shock, unspecified Status: Acute (11) Tobacco abuse ICD Code: Z72.0 - Tobacco abuse Status: Acute Assessment and Plan Neuro/Psych: Acute encephalopathy secondary to diabetic ketoacidosis Anxiety disorder NOS Benzodiazepine use Off sedation since 12/04. Neurology Dr. Neville Acetaminophen 650 mg by tube every 6 hours as needed fever CT brain 11/28 revealed Ventriculomegaly suggesting central cerebral atrophy versus hydrocephalus. Clinical correlation is recommended. No acute infarct, acute hemorrhage, midline shift or extra-axial fluid collections. UDS negative MRI brain 11/29 revealed mild to moderate ventriculomegaly. EEG - 12/07 bihemispheric slowing. No epileptiform features. EEG 11/28- bihemispheric slowing with some left frontocentral sharp waves and phase reversal suggesting an epileptiform abnormality and possible structural lesion in this region. No ictal pattern present. Neurology -Dr. Neville, on Cerebyx 200mg Q12. Check Dilantin level and hold level for elevated LFT's 12/02 Ophthalmology -no eye infection Lacri-Lube applied for scleral edema 12/02-lumbar puncture-negative. CSF HSV negative 12/03-cortisol level 17 ammonia level 22 12/11 EEG consistent with a severe encephalopathy. There is more prominent slowing over the right hemisphere. MRI brain done on 12/11 with ischemic changes high left parietal lobe however CTA brain with no major vessel stenosis or aneurysm. . CV: History of hypertension Shock, resolved Elevated troponin Acute systolic heart failure ejection fraction 40% NSTEMI cardiomyopathy Monitor HR and BP keep MAP>65mmHg Atorvastatin 10 mg by tube daily on hold for elevated LFT's Continue aspirin 81 mg by tube daily 2D echocardiogram revealed EF around 40%. LV increased size. Septal hypokinesis. 12/03- Cardiology has signed off Resp: Acute hypoxemic respiratory failure Hemoptysis-resolved Tobacco abuse/ongoing Iatrogenic PTX status post chest tube placement Continue with oxygen/TP's as harsha keep sats >92% Ventilator bundle. s/p trach on 12/16 Albuterol/ipratropium aerosols every 6 hours with albuterol aerosols every 2 hours as needed dyspnea Pulm toilet, trach care Status post bronchoscopy 11/29. SBT/TP's daily as harsha GI: Moderate protein energy malnutrition Elevated LFT's On tube feeds- Glucerna 1.5 @ 40 mL/h. Monitor LFT's, Hep profile negative.- LFTs trending down famotidine for GI prophylaxis s/p PEG tube placement 12/16 12/18 HIDA scan: unremarkable Docusate sodium/senna 1 tablet twice daily for bowel regimen 12/17 CT abdomen/pelvis from today showed trace amount of free air in the upper abdomen anterior to left lobe of the liver and adjacent to the stomach. this could be related to the G-tube. Moderately distended ascending and transverse colon. No obstruction. 12/12 US Liver: Marked gallbladder wall thickening with minimal pericholecystic fluid. No stones or sludge. Small bilateral pleural effusions. 12/03 gallbladder ultrasound -gallbladder mildly distended without evidence of wall thickening or cholelithiasis. There is ascites and pleural effusions. GI eval noted. Continue multivitamin/thiamine. thiamine via og FEN/RENAL: BRIELLE- resolved Hyponatremia Monitor renal function, I/O's, electrolytes replacement per protocol. Renal ultrasound revealed no medical renal disease. Endo: Insulin-dependent diabetes mellitus type 1 uncontrolled Diabetic ketoacidosis - resolved Originally, patient received 3 L normal saline in the ED along with 3 refills and bicarbonate, 1 ampule of calcium gluconate. Beta hydroxybutyrate cleared 11/29 Insulin pump was disconnected 11/28. According to sister Evelyn Obrien, patient had received a new insulin pump within the past 48 hours [employer]. She has no history of DKA in the past to her knowledge TSH 0.38 Continue SSI Novulog medium protocol with accucheck every 4 hours maintain euglycemia Levemir 7 q12 - Increase to 10 units q 12 Heme: Leukocytosis- Resolved Macrocytic anemia Monitor CBC daily. 12/03 transfused 1 unit of packed red blood cells ID: Community-acquired versus aspiration BC x2, UA (-) inf A/B negative 11/29 S/P bronchoscopy with sample sent from left lower lobe 11/29 Sputum (BAL)-E.coli, pansensitive ID is following, Dr. Childs Off abx- monitor for signs of infections ( Fever, WBC) 12/02-lumbar puncture-negative Access PIV in place Prophylaxis -GI -famotidine for stress ulcer prophylaxis -DVT -SCD/continue heparin SQ Doppler US UE: Non-occlusive thrombus left IJ vein Palliative care is following transfer to medical floor if accepted patient Problem Qualifiers (1) Leukocytosis: Qualified Codes: D72.829 - Elevated white blood cell count, unspecified (2) Hypotension: Qualified Codes: I95.9 - Hypotension, unspecified (3) DM type 1 (diabetes mellitus, type 1): Qualified Codes: E10.69 - Type 1 diabetes mellitus with other specified complication; E10.65 - Type 1 diabetes mellitus with hyperglycemia (4) DKA (diabetic ketoacidoses): Qualified Codes: E10.11 - Type 1 diabetes mellitus with ketoacidosis with coma (5) Acute renal failure: Qualified Codes: N17.9 - Acute kidney failure, unspecified Tia Servin MD December 23, 2017 17:28
[2017-12-24] VITALS (12 sets, daily range): BP systolic 136–162; BP diastolic 65–85; PULSE 81–102; RESP 14–18; TEMP 97.7–99.3; O2SAT 96–98
[2017-12-24] MEDS: HEPARIN SODIUM - SQ 10,000 UNITS/ML VIAL SQ SCH ×3 (02:10→18:56)
[2017-12-24] MEDS: CHLORHEXIDINE GLUCONATE 2 % 1 PACK (2 CLOTHS) TOP SCH (04:00)
[2017-12-24] MEDS: INSULIN ASPART SUPPLEMENTAL SCALE SQ SCH ×5 (04:00→20:00)
[2017-12-24] MEDS: INSULIN DETEMIR 100 UNITS/ML VIAL SQ SCH ×2 (08:39→22:41)
[2017-12-24] MEDS: CARVEDILOL 12.5 MG TAB NG SCH ×2 (08:40→22:40)
[2017-12-24] MEDS: FAMOTIDINE 20 MG TAB NG SCH ×2 (08:41→22:41)
[2017-12-24] MEDS: MULTIVITAMIN TAB PO SCH (08:41)
[2017-12-24] MEDS: THIAMINE HCL 100 MG TAB OG-TUBE SCH (08:41)
[2017-12-24] MEDS: ASPIRIN 81 MG CHEW TAB CHEW SCH (08:41)
[2017-12-24] MEDS: URSODIOL 300 MG CAP PO SCH ×2 (08:41→22:41)
[2017-12-24] MEDS: ARTIFICIAL TEARS OPTH OINT 3.5 APPLIC/3.5 GM TUBO EACH EYE SCH ×4 (08:42→22:42)
[2017-12-24] MEDS: SODIUM CHLORIDE 0.9% FLUSH 10 ML FLUSH IV FLUSH SCH ×3 (08:43→22:43)
[2017-12-24] MEDS: CHLORHEXIDINE 0.12% (ORAL KIT) 15 ML CUP MT SCH ×2 (08:43→22:43)
--- NOTE | 2017-12-24 13:30 | HHI.GIFU ---
Subjective Remarks Pt not on sedation Does not open her eyes during exam Per boyfriend at bedside she has been moving her hands some Reviewed palliative care note which states pts son is planning on coming this weekend to decide on withdraw of care (Karina Flower) Objective Vitals I&O Vital Signs Date Time Temp Pulse Resp B/P (MAP) Pulse Ox O2 Delivery O2 Flow Rate FiO2 12/24/17 12:00 86 12/24/17 10:00 91 12/24/17 08:03 97 T-piece 5.00 28 12/24/17 08:00 97.7 98 17 154/72 (99) 96 12/24/17 08:00 98 12/24/17 07:00 96 T-Piece 8.00 40 12/24/17 06:00 94 12/24/17 04:00 99 12/24/17 04:00 98.1 99 18 162/85 (110) 97 12/24/17 02:00 102 12/24/17 00:00 83 12/24/17 00:00 99.3 83 14 141/74 (96) 97 12/23/17 22:00 100 12/23/17 20:32 95 T-piece 5.00 28 12/23/17 20:00 99.0 103 19 165/100 (121) 91 12/23/17 20:00 103 12/23/17 19:00 95 T-Piece 8.00 40 12/23/17 18:00 81 12/23/17 16:00 76 12/23/17 16:00 98.0 76 13 131/63 (85) 74 12/23/17 14:00 98 I/O 12/23/17 12/23/17 12/23/17 12/24/17 12/24/17 12/24/17 07:00 15:00 23:00 07:00 15:00 23:00 Intake Total 419 ml 452 ml 439 ml Output Total 800 ml 1100 ml 400 ml Balance -381 ml -648 ml 39 ml Tube Feeding 419 ml 452 ml 439 ml Output Urine Total 800 ml 1100 ml 400 ml # Voids 2 # Bowel Movements 0 0 0 Laboratory Date/Time Source Procedure Growth Status 12/08/17 06:13 Blood Peripheral Aerobic Blood Culture - Final NO GROWTH IN 5 DAYS Complete 12/08/17 06:13 Blood Peripheral Anaerobic Blood Culture - Final NO GROWTH IN 5 DAYS Complete 12/02/17 15:29 Cerebral Spinal Fluid Lumbar Puncture Gram Stain - Final Complete 12/02/17 15:29 Cerebral Spinal Fluid Lumbar Puncture CSF Culture - Final NO GROWTH IN 72 HOURS Complete 12/08/17 06:00 Sputum Nasal Tracheal Aspirate Gram Stain - Final Complete 12/08/17 06:00 Sputum Culture - Final Escherichia Coli Complete 12/08/17 06:09 Urine Catheterized Urine Urine Culture - Final Anna Glabrata Complete Imaging Last Impressions Chest X-Ray 12/23/17 0600 Signed Impressions: Service Date/Time: Saturday, December 23, 2017 04:28 - CONCLUSION: Consolidations and pleural effusions are unchanged. Tracheostomy tube in good position. Landon Graham MD Liver Ultrasound 12/22/17 0000 Signed Impressions: Service Date/Time: Friday, December 22, 2017 09:40 - CONCLUSION: 1. Liver demonstrates no acute finding. However, there is a small volume of free fluid in the abdomen in a perihepatic location. 2. Persistent but overall decreased gallbladder wall thickening. 3. Bilateral pleural effusions. Uziel Troy MD Hepatobiliary Scan Nuclear Medicine 12/18/17 0000 Signed Impressions: Service Date/Time: Monday, December 18, 2017 10:53 - CONCLUSION: 1. Normal uptake and excretion of radiotracer. Dimitri Bird MD ADDENDUM: The there is a air in the report under the medication sections it should read cholecystokinin was administered by slow infusion over 8 minutes beginning at the 60 minute jyoti. Dimitri Bird MD Abdomen/Pelvis CT 12/17/17 0000 Signed Impressions: Service Date/Time: Sunday, December 17, 2017 15:44 - CONCLUSION: 1. There is a trace amount of free air in the upper abdomen anterior to left lobe of the liver and adjacent to the stomach. While nonspecific, this could be related to the G-tube. Suggest correlating with the clinical examination for signs of acute abdomen which would indicate a more concerning cause. 2. Moderately distended ascending and transverse colon. However, no anatomic obstruction is visualized. 3. Signs of fluid overload including bilateral pleural effusions, anasarca, periportal edema, and small volume of free fluid in the abdomen and pelvis. Uziel Troy MD Upper Extremity Ultrasound 12/15/17 0000 Signed Impressions: Service Date/Time: Friday, December 15, 2017 13:57 - CONCLUSION: Nonocclusive thrombus within left internal jugular vein. The remaining venous structures in the left upper extremity appear patent. Uziel Thomas MD Neck CTA 12/11/17 0000 Signed Impressions: Service Date/Time: Monday, December 11, 2017 23:08 - CONCLUSION: No carotid stenosis. Ac Davis MD Head CTA 12/11/17 0000 Signed Impressions: Service Date/Time: Monday, December 11, 2017 23:08 - CONCLUSION: 1. No large vessel stenosis or aneurysm. Ac Davis MD Brain MRI 12/11/17 0000 Signed Impressions: Service Date/Time: Monday, December 11, 2017 11:12 - CONCLUSION: 1. Faint diffusion restriction predominately along the high right parietal convexity with minimal diffusion restriction on the left. Pattern is somewhat unusual for anoxia with the asymmetry. Possible embolic event. CTA of the cervical and intracranial vessels to be performed for further characterization. 2. Chronic changes with some periventricular small vessel ischemic demyelination. 3. Mild ventricular prominence. In the appropriate clinical setting, findings could represent normal pressure hydrocephalus. 4. Bilateral mastoiditis. Mild chronic sinus disease in the sphenoid bilaterally. Dani Titus MD Gall Bladder Ultrasound 12/03/17 0000 Signed Impressions: Service Date/Time: Sunday, December 03, 2017 07:59 - CONCLUSION: 1. Ascites and bilateral pleural effusions. 2. Mildly distended gallbladder without evidence of wall thickening or cholelithiasis. 3. Otherwise unremarkable exam. Boo Cartwright MD Lumbar Puncture Fluoroscopy 12/02/17 0000 Signed Impressions: Service Date/Time: Saturday, December 02, 2017 15:28 - CONCLUSION: Uncomplicated fluoroscopically guided lumbar puncture. Aly Leigh MD Renal Ultrasound 11/29/17 1656 Signed Impressions: Service Date/Time: Wednesday, November 29, 2017 13:16 - CONCLUSION: 1. Both kidneys are sonographically normal without hydronephrosis or nephrolithiasis. 2. Very abnormal appearance of the gallbladder with mural thickening and minimal pericholecystic fluid Dani Titus MD Head CT 11/28/17 0000 Signed Impressions: Service Date/Time: November 15:46 - CONCLUSION: 1. Ventriculomegaly suggesting central cerebral atrophy versus hydrocephalus. Clinical correlation is recommended. 2. No acute infarct, acute hemorrhage, midline shift or extra-axial fluid collections. Dev Christopher MD Physical Exam HEENT: Normocephalic, atraumatic CHEST : CTA- T piece CARDIAC: RRR ABDOMEN: Mildly distended, soft, bowel sounds active. PEG tube site clean and dry SKIN: Normal; no rash; no jaundice. (Karina Flower PRACTICE REPRESENTATIVE) Assessment and Plan Plan Assessment: - Elevated LFTs- normal on admission on November 28 US liver (12/12) --> Marked gallbladder wall thickening with minimal pericholecystic fluid. No stones or sludge. Small bilateral pleural effusions. CT abdomen and pelvis W IV contrast (12/17) --> There is a trace amount of free air in the upper abdomen anterior to left lobe of the liver and adjacent to the stomach. While nonspecific, this could be related to the G-tube. Suggest correlating with the clinical examination for signs of acute abdomen which would indicate a more concerning cause. Moderately distended ascending and transverse colon. However, no anatomic obstruction is visualized. Signs of fluid overload including bilateral pleural effusions, anasarca, periportal edema, and small volume of free fluid in the abdomen and pelvis. HIDA scan (12/18) --> Normal uptake and excretion of radiotracer. Currently: AST-129 ALT-186 Alk phos-1350 T bili-0.3 Given the course of liver enzyme elevation likely secondary to medication Liver JEWELL: Iron-23 TIBC-241 %sat-9.6 Hepatitis panel negative Alk phos iso enzymes pending, CARLA and ASMA negative AMA and celiac panel pending - Uncontrolled DM- admitted with BGL over 800 in DKA (12/22) Actigall added yesterday, some improvement in LFTs today. TF currently on hold, pt to have US of liver done today. Alk phos iso enzymes intestine-0 bone-40 liver-60. AMA, and celiac panel pending. Liver biopsy if rest of work up does not reveal source of elevation and LFTs do not improve. (12/23) LFTs are trending down. ALP bone 40, liver 60. US shows persistent but improving. GB wall thickening, small amt perihepatic fluid. liver w/u so far unremarkable. (12/24) LFTs continue to trend down, no significant events over night. Per palliative care notes, pts son planning on coming from [place] this weekend to decide on possible withdraw. Pts boyfriend at bedside and does not seem to be in contact with son, son is medical decisions maker. Plan: - Actigall - AMA and celiac panel pending - TF recommendations per nutrition - Palliative care following - GI will sign off, if aggressive care is sought please reconsult our service for further liver work up and possible biopsy Pt has been seen and examined by myself and Dr Newberry and this note is his behalf (Karina Flower) Physician Comments Seen and examined with LISBET, LFTs improving. GI will sign off. Reconsult as needed. Thank you (Brendan Newberry MD) Karina Flower December 24, 2017 13:30 Brendan Newberry MD December 24, 2017 17:45
--- NOTE | 2017-12-24 19:13 | HHI.PR ---
Subjective Remarks non verbal no acute distress not interactive toelrating tube feedings Objective Vitals Vital Signs Date Time Temp Pulse Resp B/P (MAP) Pulse Ox O2 Delivery O2 Flow Rate FiO2 12/24/17 16:00 97.9 85 15 136/65 (88) 98 12/24/17 16:00 85 12/24/17 16:00 98.1 12/24/17 14:00 87 12/24/17 12:00 97.8 86 17 142/67 (92) 98 12/24/17 12:00 86 12/24/17 10:00 91 12/24/17 08:03 97 T-piece 5.00 28 12/24/17 08:00 97.7 98 17 154/72 (99) 96 12/24/17 08:00 98 12/24/17 07:00 96 T-Piece 8.00 40 12/24/17 06:00 94 12/24/17 04:00 99 12/24/17 04:00 98.1 99 18 162/85 (110) 97 12/24/17 02:00 102 12/24/17 00:00 83 12/24/17 00:00 99.3 83 14 141/74 (96) 97 12/23/17 22:00 100 12/23/17 20:32 95 T-piece 5.00 28 12/23/17 20:00 99.0 103 19 165/100 (121) 91 12/23/17 20:00 103 I/O 12/23/17 12/23/17 12/23/17 12/24/17 12/24/17 12/24/17 07:00 15:00 23:00 07:00 15:00 23:00 Intake Total 419 ml 452 ml 439 ml 386 ml Output Total 800 ml 1100 ml 400 ml 700 ml Balance -381 ml -648 ml 39 ml -314 ml Tube Feeding 419 ml 452 ml 439 ml 386 ml Output Urine Total 800 ml 1100 ml 400 ml 700 ml # Voids 2 # Bowel Movements 0 0 0 0 Result Diagram: 12/23/17 0612/23/17600 Imaging Last Impressions Chest X-Ray 12/23/17 06 Signed Impressions: Service Date/Time: Saturday, December 23, 2017 04:28 - CONCLUSION: Consolidations and pleural effusions are unchanged. Tracheostomy tube in good position. Landon A. Sevigny, MD Liver Ultrasound 12/22/17 Signed Impressions: Service Date/Time: Friday, December 22, 2017 09:40 - CONCLUSION: 1. Liver demonstrates no acute finding. However, there is a small volume of free fluid in the abdomen in a perihepatic location. 2. Persistent but overall decreased gallbladder wall thickening. 3. Bilateral pleural effusions. Uziel Troy MD Hepatobiliary Scan Nuclear Medicine 12/18/17 Signed Impressions: Service Date/Time: Monday, December 18, 2017 10:53 - CONCLUSION: 1. Normal uptake and excretion of radiotracer. Dimitri Bird MD ADDENDUM: The there is a air in the report under the medication sections it should read cholecystokinin was administered by slow infusion over 8 minutes beginning at the 60 minute jyoti. Dimitri Bird MD Abdomen/Pelvis CT 12/17/17 Signed Impressions: Service Date/Time: Sunday, December 17, 2017 15:44 - CONCLUSION: 1. There is a trace amount of free air in the upper abdomen anterior to left lobe of the liver and adjacent to the stomach. While nonspecific, this could be related to the G-tube. Suggest correlating with the clinical examination for signs of acute abdomen which would indicate a more concerning cause. 2. Moderately distended ascending and transverse colon. However, no anatomic obstruction is visualized. 3. Signs of fluid overload including bilateral pleural effusions, anasarca, periportal edema, and small volume of free fluid in the abdomen and pelvis. Uziel Troy MD Upper Extremity Ultrasound 12/15/17 Signed Impressions: Service Date/Time: Friday, December 15, 2017 13:57 - CONCLUSION: Nonocclusive thrombus within left internal jugular vein. The remaining venous structures in the left upper extremity appear patent. Uziel Thomas MD Neck CTA 12/11/17 Signed Impressions: Service Date/Time: Monday, December 11, 2017 23:08 - CONCLUSION: No carotid stenosis. Ac Davis MD Head CTA 12/11/17 Signed Impressions: Service Date/Time: Monday, December 11, 2017 23:08 - CONCLUSION: 1. No large vessel stenosis or aneurysm. Ac Davis MD Brain MRI 12/11/17 0000 Signed Impressions: Service Date/Time: Monday, December 11, 2017 11:12 - CONCLUSION: 1. Faint diffusion restriction predominately along the high right parietal convexity with minimal diffusion restriction on the left. Pattern is somewhat unusual for anoxia with the asymmetry. Possible embolic event. CTA of the cervical and intracranial vessels to be performed for further characterization. 2. Chronic changes with some periventricular small vessel ischemic demyelination. 3. Mild ventricular prominence. In the appropriate clinical setting, findings could represent normal pressure hydrocephalus. 4. Bilateral mastoiditis. Mild chronic sinus disease in the sphenoid bilaterally. Dani Titus MD Gall Bladder Ultrasound 12/03/17 0000 Signed Impressions: Service Date/Time: Sunday, December 03, 2017 07:59 - CONCLUSION: 1. Ascites and bilateral pleural effusions. 2. Mildly distended gallbladder without evidence of wall thickening or cholelithiasis. 3. Otherwise unremarkable exam. Boo Cartwright MD Lumbar Puncture Fluoroscopy 12/02/17 0000 Signed Impressions: Service Date/Time: Saturday, December 02, 2017 15:28 - CONCLUSION: Uncomplicated fluoroscopically guided lumbar puncture. Aly Leigh MD Renal Ultrasound 11/29/17 1656 Signed Impressions: Service Date/Time: Wednesday, November 29, 2017 13:16 - CONCLUSION: 1. Both kidneys are sonographically normal without hydronephrosis or nephrolithiasis. 2. Very abnormal appearance of the gallbladder with mural thickening and minimal pericholecystic fluid Dani Titus MD Head CT 11/28/17 0000 Signed Impressions: Service Date/Time: November 15:46 - CONCLUSION: 1. Ventriculomegaly suggesting central cerebral atrophy versus hydrocephalus. Clinical correlation is recommended. 2. No acute infarct, acute hemorrhage, midline shift or extra-axial fluid collections. Dev Christopher MD Objective Remarks anicteric no nuchal rigditiy no rales regular rhythm abdomen soft, good bowel sounds PEG in place purwik external catheter in place no edema Procedures 12/02- lumbar puncture Date of Insertion: Nov 28, 2017 Line: Central Venous Catheter Side: Left Location: Internal, Jugular A/P Problem List: (1) Macrocytic anemia ICD Code: D53.9 - Nutritional anemia, unspecified (2) Leukocytosis ICD Code: D72.829 - Elevated white blood cell count, unspecified Status: Resolved (3) Acute kidney injury ICD Code: N17.9 - Acute kidney failure, unspecified (4) Hyponatremia ICD Code: E87.1 - Hypo-osmolality and hyponatremia (5) Hypotension ICD Code: I95.9 - Hypotension, unspecified (6) DM type 1 (diabetes mellitus, type 1) ICD Code: E10.9 - DM type 1 (diabetes mellitus, type 1) Status: Acute (7) DKA (diabetic ketoacidoses) ICD Code: E13.10 - Other specified diabetes mellitus with ketoacidosis without coma Status: Resolved (8) Acute renal failure ICD Code: N17.9 - Acute kidney failure, unspecified Status: Acute (9) Hyperkalemia ICD Code: E87.5 - Hyperkalemia Status: Acute (10) Shock ICD Code: R57.9 - Shock, unspecified Status: Acute (11) Tobacco abuse ICD Code: Z72.0 - Tobacco abuse Status: Acute Assessment and Plan Neuro/Psych: Acute encephalopathy secondary to diabetic ketoacidosis Anxiety disorder NOS Benzodiazepine use Off sedation since 12/04. Neurology Dr. Neville Acetaminophen 650 mg by tube every 6 hours as needed fever CT brain 11/28 revealed Ventriculomegaly suggesting central cerebral atrophy versus hydrocephalus. Clinical correlation is recommended. No acute infarct, acute hemorrhage, midline shift or extra-axial fluid collections. UDS negative MRI brain 11/29 revealed mild to moderate ventriculomegaly. EEG - 12/07 bihemispheric slowing. No epileptiform features. EEG 11/28- bihemispheric slowing with some left frontocentral sharp waves and phase reversal suggesting an epileptiform abnormality and possible structural lesion in this region. No ictal pattern present. Neurology -Dr. Neville, on Cerebyx 200mg Q12. Check Dilantin level and hold level for elevated LFT's 12/02 Ophthalmology -no eye infection Lacri-Lube applied for scleral edema 12/02-lumbar puncture-negative. CSF HSV negative 12/03-cortisol level 17 ammonia level 22 12/11 EEG consistent with a severe encephalopathy. There is more prominent slowing over the right hemisphere. MRI brain done on 12/11 with ischemic changes high left parietal lobe however CTA brain with no major vessel stenosis or aneurysm. . CV: History of hypertension Shock, resolved Elevated troponin Acute systolic heart failure ejection fraction 40% NSTEMI cardiomyopathy Monitor HR and BP keep MAP>65mmHg Atorvastatin 10 mg by tube daily on hold for elevated LFT's Continue aspirin 81 mg by tube daily 2D echocardiogram revealed EF around 40%. LV increased size. Septal hypokinesis. 12/03- Cardiology has signed off Resp: Acute hypoxemic respiratory failure Hemoptysis-resolved Tobacco abuse/ongoing Iatrogenic PTX status post chest tube placement Continue with oxygen/TP's as harsha keep sats >92% Ventilator bundle. s/p trach on 12/16 Albuterol/ipratropium aerosols every 6 hours with albuterol aerosols every 2 hours as needed dyspnea Pulm toilet, trach care Status post bronchoscopy 11/29. SBT/TP's daily as harsha GI: Moderate protein energy malnutrition Elevated LFT's On tube feeds- Glucerna 1.5 @ 40 mL/h. Monitor LFT's, Hep profile negative.- LFTs trending down famotidine for GI prophylaxis s/p PEG tube placement 12/16 12/18 HIDA scan: unremarkable Docusate sodium/senna 1 tablet twice daily for bowel regimen 12/17 CT abdomen/pelvis from today showed trace amount of free air in the upper abdomen anterior to left lobe of the liver and adjacent to the stomach. this could be related to the G-tube. Moderately distended ascending and transverse colon. No obstruction. 12/12 US Liver: Marked gallbladder wall thickening with minimal pericholecystic fluid. No stones or sludge. Small bilateral pleural effusions. 12/03 gallbladder ultrasound -gallbladder mildly distended without evidence of wall thickening or cholelithiasis. There is ascites and pleural effusions. GI eval noted. Continue multivitamin/thiamine. thiamine via og FEN/RENAL: BRIELLE- resolved Hyponatremia Monitor renal function, I/O's, electrolytes replacement per protocol. Renal ultrasound revealed no medical renal disease. Endo: Insulin-dependent diabetes mellitus type 1 uncontrolled Diabetic ketoacidosis - resolved Originally, patient received 3 L normal saline in the ED along with 3 refills and bicarbonate, 1 ampule of calcium gluconate. Beta hydroxybutyrate cleared 11/29 Insulin pump was disconnected 11/28. According to sister Evelyn Pollack'Avila, patient had received a new insulin pump within the past 48 hours [employer]. She has no history of DKA in the past to her knowledge TSH 0.38 Continue SSI Novulog medium protocol with accucheck every 4 hours maintain euglycemia Levemir 7 q12 - Increase to 10 units q 12 Heme: Leukocytosis- Resolved Macrocytic anemia Monitor CBC daily. 12/03 transfused 1 unit of packed red blood cells ID: Community-acquired versus aspiration BC x2, UA (-) inf A/B negative 11/29 S/P bronchoscopy with sample sent from left lower lobe 11/29 Sputum (BAL)-E.coli, pansensitive ID is following, Dr. Childs Off abx- monitor for signs of infections ( Fever, WBC) 12/02-lumbar puncture-negative Access PIV in place Prophylaxis -GI -famotidine for stress ulcer prophylaxis -DVT -SCD/continue heparin SQ Doppler US UE: Non-occlusive thrombus left IJ vein Palliative care is following transfer to medical floor Problem Qualifiers (1) Leukocytosis: Qualified Codes: D72.829 - Elevated white blood cell count, unspecified (2) Hypotension: Qualified Codes: I95.9 - Hypotension, unspecified (3) DM type 1 (diabetes mellitus, type 1): Qualified Codes: E10.69 - Type 1 diabetes mellitus with other specified complication; E10.65 - Type 1 diabetes mellitus with hyperglycemia (4) DKA (diabetic ketoacidoses): Qualified Codes: E10.11 - Type 1 diabetes mellitus with ketoacidosis with coma (5) Acute renal failure: Qualified Codes: N17.9 - Acute kidney failure, unspecified Tia Servin MD December 24, 2017 19:13
[2017-12-25] VITALS (9 sets, daily range): BP systolic 119–141; BP diastolic 65–94; PULSE 74–100; RESP 14–20; TEMP 98–100.1; O2SAT 94–98
[2017-12-25] MEDS: HEPARIN SODIUM - SQ 10,000 UNITS/ML VIAL SQ SCH ×3 (02:00→18:02)
[2017-12-25] MEDS: CHLORHEXIDINE GLUCONATE 2 % 1 PACK (2 CLOTHS) TOP SCH ×2 (04:00→22:13)
[2017-12-25] MEDS: INSULIN ASPART SUPPLEMENTAL SCALE SQ SCH ×6 (04:24→20:00)
[2017-12-25 07:53] LABS: ALBUMIN 2.2 GM/DL (3.4-5.0); ALT (GPT) 75 U/L (10-53); AST (GOT) 38 U/L (15-37); BICARBONATE 29.4 MEQ/L (21.0-32.0); BLOOD UREA NITROGEN 13 MG/DL (7-18); CALCIUM 8.6 MG/DL (8.5-10.1); CHLORIDE 103 MEQ/L (98-107); CREATININE 0.53 MG/DL (0.50-1.00); GLOMERULAR FILTRATION RATE 116 ML/MIN (>89); GLUCOSE,RANDOM 114 MG/DL (74-106); SODIUM (NA) 140 MEQ/L (136-145)
[2017-12-25 07:55] LABS: ALKALINE PHOSPHATASE 768 U/L (45-117); TOTAL BILIRUBIN ADULT 0.2 MG/DL (0.2-1.0); TOTAL PROTEIN 6.2 GM/DL (6.4-8.2)
[2017-12-25] MEDS: SODIUM CHLORIDE 0.9% FLUSH 10 ML FLUSH IV FLUSH SCH ×3 (09:00→20:47)
[2017-12-25] MEDS: URSODIOL 300 MG CAP PO SCH ×2 (09:50→21:57)
[2017-12-25] MEDS: FAMOTIDINE 20 MG TAB NG SCH ×2 (09:50→21:57)
[2017-12-25] MEDS: CHLORHEXIDINE 0.12% (ORAL KIT) 15 ML CUP MT SCH ×2 (09:50→20:00)
[2017-12-25] MEDS: CARVEDILOL 12.5 MG TAB NG SCH ×2 (09:50→21:57)
[2017-12-25] MEDS: THIAMINE HCL 100 MG TAB OG-TUBE SCH (09:50)
[2017-12-25] MEDS: MULTIVITAMIN TAB PO SCH (09:50)
[2017-12-25] MEDS: ARTIFICIAL TEARS OPTH OINT 3.5 APPLIC/3.5 GM TUBO EACH EYE SCH ×4 (09:51→20:47)
[2017-12-25] MEDS: INSULIN DETEMIR 100 UNITS/ML VIAL SQ SCH ×2 (09:51→20:48)
[2017-12-25] MEDS: ASPIRIN 81 MG CHEW TAB CHEW SCH (09:51)
--- NOTE | 2017-12-25 14:36 | HHI.PR ---
Subjective Remarks Coarse breath sounds bilaterally while on tracheostomy No facial droop, no slurred speech, patient is not responsive to any verbal commands. Does not track. Will spontaneously make smooth head movements from side to side. Objective Vital Signs Date Time Temp Pulse Resp B/P (MAP) Pulse Ox O2 Delivery O2 Flow Rate FiO2 12/25/17 09:10 97 T-piece 5.00 28 12/25/17 09:00 T-Piece 5.00 28 12/25/17 08:11 98.2 87 20 138/69 (92) 97 12/25/17 04:00 74 12/25/17 04:00 98.3 89 15 135/65 (88) 97 12/25/17 00:00 98.9 84 14 137/94 (108) 94 12/25/17 00:00 100 12/24/17 20:18 97 T-piece 5.00 28 12/24/17 20:00 90 12/24/17 20:00 T-Piece 5.00 28 12/24/17 20:00 98.8 81 15 139/71 (93) 96 12/24/17 16:00 97.9 85 15 136/65 (88) 98 12/24/17 16:00 85 12/24/17 16:00 98.1 I/O 12/24/17 12/24/17 12/24/17 12/25/17 12/25/17 12/25/17 07:00 15:00 23:00 07:00 15:00 23:00 Intake Total 439 ml 386 ml 0 ml Output Total 400 ml 700 ml 1000 ml Balance 39 ml -314 ml -1000 ml Intake Oral 0 ml Tube Feeding 439 ml 386 ml Output Urine Total 400 ml 700 ml 1000 ml # Voids 2 # Bowel Movements 0 0 Result Diagram: 12/23/17 0601 12/25/17 0705 Imaging Last Impressions Chest X-Ray 12/23/17 0600 Signed Impressions: Service Date/Time: Saturday, December 23, 2017 04:28 - CONCLUSION: Consolidations and pleural effusions are unchanged. Tracheostomy tube in good position. Landon Graham MD Liver Ultrasound 12/22/17 0000 Signed Impressions: Service Date/Time: Friday, December 22, 2017 09:40 - CONCLUSION: 1. Liver demonstrates no acute finding. However, there is a small volume of free fluid in the abdomen in a perihepatic location. 2. Persistent but overall decreased gallbladder wall thickening. 3. Bilateral pleural effusions. Uziel Troy MD Hepatobiliary Scan Nuclear Medicine 12/18/17 Signed Impressions: Service Date/Time: Monday, December 18, 2017 10:53 - CONCLUSION: 1. Normal uptake and excretion of radiotracer. Dimitri Bird MD ADDENDUM: The there is a air in the report under the medication sections it should read cholecystokinin was administered by slow infusion over 8 minutes beginning at the 60 minute jyoti. Dimitri Bird MD Abdomen/Pelvis CT 12/17/17 0000 Signed Impressions: Service Date/Time: Sunday, December 17, 2017 15:44 - CONCLUSION: 1. There is a trace amount of free air in the upper abdomen anterior to left lobe of the liver and adjacent to the stomach. While nonspecific, this could be related to the G-tube. Suggest correlating with the clinical examination for signs of acute abdomen which would indicate a more concerning cause. 2. Moderately distended ascending and transverse colon. However, no anatomic obstruction is visualized. 3. Signs of fluid overload including bilateral pleural effusions, anasarca, periportal edema, and small volume of free fluid in the abdomen and pelvis. Uziel Troy MD Upper Extremity Ultrasound 12/15/17 Signed Impressions: Service Date/Time: Friday, December 15, 2017 13:57 - CONCLUSION: Nonocclusive thrombus within left internal jugular vein. The remaining venous structures in the left upper extremity appear patent. Uziel Thomas MD Neck CTA 12/11/17 Signed Impressions: Service Date/Time: Monday, December 11, 2017 23:08 - CONCLUSION: No carotid stenosis. Ac Davis MD Head CTA 12/11/17 0000 Signed Impressions: Service Date/Time: Monday, December 11, 2017 23:08 - CONCLUSION: 1. No large vessel stenosis or aneurysm. Ac Davis MD Brain MRI 12/11/17 Signed Impressions: Service Date/Time: Monday, December 11, 2017 11:12 - CONCLUSION: 1. Faint diffusion restriction predominately along the high right parietal convexity with minimal diffusion restriction on the left. Pattern is somewhat unusual for anoxia with the asymmetry. Possible embolic event. CTA of the cervical and intracranial vessels to be performed for further characterization. 2. Chronic changes with some periventricular small vessel ischemic demyelination. 3. Mild ventricular prominence. In the appropriate clinical setting, findings could represent normal pressure hydrocephalus. 4. Bilateral mastoiditis. Mild chronic sinus disease in the sphenoid bilaterally. Dani Titus MD Gall Bladder Ultrasound 12/03/17 0000 Signed Impressions: Service Date/Time: Sunday, December 03, 2017 07:59 - CONCLUSION: 1. Ascites and bilateral pleural effusions. 2. Mildly distended gallbladder without evidence of wall thickening or cholelithiasis. 3. Otherwise unremarkable exam. Boo Cartwright MD Lumbar Puncture Fluoroscopy 12/02/17 0000 Signed Impressions: Service Date/Time: Saturday, December 02, 2017 15:28 - CONCLUSION: Uncomplicated fluoroscopically guided lumbar puncture. Aly Leigh MD Renal Ultrasound 11/29/17 1656 Signed Impressions: Service Date/Time: Wednesday, November 29, 2017 13:16 - CONCLUSION: 1. Both kidneys are sonographically normal without hydronephrosis or nephrolithiasis. 2. Very abnormal appearance of the gallbladder with mural thickening and minimal pericholecystic fluid Dani Titus MD Head CT 11/28/17 0000 Signed Impressions: Service Date/Time: November 15:46 - CONCLUSION: 1. Ventriculomegaly suggesting central cerebral atrophy versus hydrocephalus. Clinical correlation is recommended. 2. No acute infarct, acute hemorrhage, midline shift or extra-axial fluid collections. Dev Christopher MD Objective Remarks No facial droop, no slurred speech, patient is nonverbal, nonresponsive, spontaneously will rotate her head and look from side to side with her eyes closed. A/P Assessment and Plan Encephalopathy Off sedation since 12/04 still not responsive. Extensive workup negative including LP/CSF workup, cortisol level exception include; mild to moderate ventriculomegaly on MRI 11/29 and severe encephalopathy noted on 12/11 EEG. Repeat MRI on 12/11 showing ischemic changes high left parietal lobe. Neurology following. Acetaminophen 650 mg by tube every 6 hours as needed fever Elevated troponin Acute systolic heart failure ejection fraction 40% NSTEMI cardiomyopathy Atorvastatin 10 mg by tube daily on hold for elevated LFT's Continue aspirin 12/03- Cardiology has signed off Acute hypoxemic respiratory failure Iatrogenic PTX status post chest tube placement Continue with oxygen/TP's as harsha keep sats >92% Ventilator bundle. s/p trach on 12/16 Albuterol/ipratropium aerosols Pulm toilet, trach care Status post bronchoscopy 11/29. SBT/TP's daily as harsha Moderate protein energy malnutrition Elevated LFT's On tube feeds- Glucerna 1.5 @ 40 mL/h. s/p PEG tube placement 12/16 12/18 HIDA scan: unremarkable Docusate sodium/senna 1 tablet twice daily for bowel regimen 12/17 CT abdomen/pelvis from today showed trace amount of free air in the upper abdomen anterior to left lobe of the liver and adjacent to the stomach. this could be related to the G-tube. Moderately distended ascending and transverse colon. No obstruction. 12/12 US Liver: Marked gallbladder wall thickening with minimal pericholecystic fluid. No stones or sludge. Small bilateral pleural effusions. 12/03 gallbladder ultrasound -gallbladder mildly distended without evidence of wall thickening or cholelithiasis. There is ascites and pleural effusions. GI eval noted. Continue multivitamin/thiamine. thiamine via og Hyponatremia Renal ultrasound revealed no medical renal disease. Insulin-dependent diabetes mellitus type 1 uncontrolled Continue SSI Novulog medium protocol with accucheck every 4 hours maintain euglycemia Levemir 7 q12 - Increase to 10 units q 12 Community-acquired versus aspiration BC x2, UA (-) inf A/B negative 11/29 S/P bronchoscopy with sample sent from left lower lobe 11/29 Sputum (BAL)-E.coli, pansensitive ID is following, Dr. Childs Off abx- monitor for signs of infections ( Fever, WBC) DVT -SCD/continue heparin SQ -Doppler US UE: Non-occlusive thrombus left IJ vein Discharge Planning Palliative care is following son expected to make decision in next week or so for withdrawal life support decision Aleks Pepe MD December 25, 2017 14:36
[2017-12-25 15:52] LABS: ENDOMYSIAL AB SCREEN ND (NEGATIVE); ENDOMYSIAL AB TITER ND (<1:5)
[2017-12-26] VITALS (10 sets, daily range): BP systolic 107–143; BP diastolic 60–91; PULSE 78–102; RESP 16–18; TEMP 98.2–99.7; O2SAT 94–100
[2017-12-26] MEDS: INSULIN ASPART SUPPLEMENTAL SCALE SQ SCH ×6 (01:04→20:37)
[2017-12-26] MEDS: HEPARIN SODIUM - SQ 10,000 UNITS/ML VIAL SQ SCH ×3 (02:18→17:14)
[2017-12-26] MEDS: CHLORHEXIDINE 0.12% (ORAL KIT) 15 ML CUP MT SCH ×2 (08:00→20:36)
[2017-12-26] MEDS: SODIUM CHLORIDE 0.9% FLUSH 10 ML FLUSH IV FLUSH SCH ×3 (09:00→20:38)
[2017-12-26] MEDS: ARTIFICIAL TEARS OPTH OINT 3.5 APPLIC/3.5 GM TUBO EACH EYE SCH ×4 (09:00→20:37)
[2017-12-26] MEDS: URSODIOL 300 MG CAP PO SCH ×2 (09:10→20:37)
[2017-12-26] MEDS: CARVEDILOL 12.5 MG TAB NG SCH ×2 (09:10→20:37)
[2017-12-26] MEDS: ASPIRIN 81 MG CHEW TAB CHEW SCH (09:10)
[2017-12-26] MEDS: THIAMINE HCL 100 MG TAB OG-TUBE SCH (09:11)
[2017-12-26] MEDS: FAMOTIDINE 20 MG TAB NG SCH ×2 (09:11→20:37)
[2017-12-26] MEDS: INSULIN DETEMIR 100 UNITS/ML VIAL SQ SCH ×2 (09:11→20:37)
[2017-12-26] MEDS: MULTIVITAMIN TAB PO SCH (09:11)
--- NOTE | 2017-12-26 09:34 | HHI.PR ---
Subjective Remarks Nursing denies any deterioration since last night. Still no tracking, still no verbal response. Objective Vital Signs Date Time Temp Pulse Resp B/P (MAP) Pulse Ox O2 Delivery O2 Flow Rate FiO2 12/26/17 08:35 100 T-piece 5.00 28 12/26/17 04:00 99.7 87 16 125/75 (92) 98 12/26/17 01:53 99 T-piece 5.00 28 12/26/17 00:00 99.7 92 16 122/69 (86) 94 12/25/17 22:10 94 T-piece 5.00 12/25/17 20:00 100.1 88 16 141/80 (100) 97 12/25/17 19:00 T-Piece 5.00 28 12/25/17 16:03 97 T-piece 5.00 28 12/25/17 16:00 98.4 80 16 119/68 (85) 98 12/25/17 12:11 98.0 84 20 136/68 (90) 97 12/25/17 12:00 T-Piece 5.00 28 I/O 12/25/17 12/25/17 12/25/17 12/26/17 12/26/17 12/26/17 07:00 15:00 23:00 07:00 15:00 23:00 Intake Total 0 ml 0 ml Output Total 1000 ml Balance -1000 ml 0 ml Intake Oral 0 ml 0 ml Output Urine Total 1000 ml # Voids 1 2 # Bowel Movements 0 Result Diagram: 12/23/17 0601 12/25/17 0705 Objective Remarks No facial droop, no slurred speech, patient is nonverbal, nonresponsive, spontaneously will rotate her head and look from side to side with her eyes closed. A/P Assessment and Plan Encephalopathy Off sedation since 12/04 still not responsive. Extensive workup negative including LP/CSF workup and cortisol level; only pertinent positives are mild to moderate ventriculomegaly on MRI 11/29 and severe encephalopathy noted on EEG. Repeat MRI on 12/11 showing ischemic changes high left parietal lobe. Neurology following. Acetaminophen 650 mg by tube every 6 hours as needed fever Elevated troponin Acute systolic heart failure ejection fraction 40% NSTEMI cardiomyopathy Atorvastatin 10 mg by tube daily on hold for elevated LFT's Continue aspirin 12/03- Cardiology has signed off Acute hypoxemic respiratory failure Iatrogenic PTX status post chest tube placement Continue with oxygen/TP's as harsha keep sats >92% Ventilator bundle. s/p trach on 12/16 Albuterol/ipratropium aerosols Pulm toilet, trach care Status post bronchoscopy 11/29. SBT/TP's daily as harsha Moderate protein energy malnutrition Elevated LFT's On tube feeds- Glucerna 1.5 @ 40 mL/h. s/p PEG tube placement 12/16 12/18 HIDA scan: unremarkable Docusate sodium/senna 1 tablet twice daily for bowel regimen 12/17 CT abdomen/pelvis from today showed trace amount of free air in the upper abdomen anterior to left lobe of the liver and adjacent to the stomach. this could be related to the G-tube. Moderately distended ascending and transverse colon. No obstruction. 12/12 US Liver: Marked gallbladder wall thickening with minimal pericholecystic fluid. No stones or sludge. Small bilateral pleural effusions. 12/03 gallbladder ultrasound -gallbladder mildly distended without evidence of wall thickening or cholelithiasis. There is ascites and pleural effusions. GI eval noted. Continue multivitamin/thiamine. thiamine via og Hyponatremia Resolved Insulin-dependent diabetes mellitus type 1 uncontrolled Continue SSI NovoLog medium protocol with accucheck every 4 hours maintain euglycemia Levemir 10 units q 12 DVT -SCD/continue heparin SQ -Doppler US UE: Non-occlusive thrombus left IJ vein Discharge Planning Palliative care is following son expected to make decision in next week or so for withdrawal life support decision Aleks Pepe MD December 26, 2017 09:34
[2017-12-26 23:54] LABS: MITOCHONDRIAL ABS LESS THAN 20.0 U (<=20.0)
[2017-12-27] VITALS (8 sets, daily range): BP systolic 102–144; BP diastolic 55–83; PULSE 74–79; RESP 16–18; TEMP 97.8–99; O2SAT 96–99
[2017-12-27] MEDS: HEPARIN SODIUM - SQ 10,000 UNITS/ML VIAL SQ SCH ×3 (02:41→17:18)
[2017-12-27] MEDS: INSULIN ASPART SUPPLEMENTAL SCALE SQ SCH ×6 (04:00→21:15)
[2017-12-27] MEDS: CHLORHEXIDINE GLUCONATE 2 % 1 PACK (2 CLOTHS) TOP SCH (04:00)
[2017-12-27] MEDS: CHLORHEXIDINE 0.12% (ORAL KIT) 15 ML CUP MT SCH ×2 (08:00→21:15)
[2017-12-27] MEDS: SODIUM CHLORIDE 0.9% FLUSH 10 ML FLUSH IV FLUSH SCH ×3 (09:00→21:13)
[2017-12-27] MEDS: ARTIFICIAL TEARS OPTH OINT 3.5 APPLIC/3.5 GM TUBO EACH EYE SCH ×4 (09:00→21:13)
[2017-12-27] MEDS: INSULIN DETEMIR 100 UNITS/ML VIAL SQ SCH ×2 (09:00→21:11)
[2017-12-27] MEDS: CARVEDILOL 12.5 MG TAB NG SCH ×2 (09:30→21:12)
[2017-12-27] MEDS: URSODIOL 300 MG CAP PO SCH ×2 (09:30→21:12)
[2017-12-27] MEDS: MULTIVITAMIN TAB PO SCH (09:30)
[2017-12-27] MEDS: THIAMINE HCL 100 MG TAB OG-TUBE SCH (09:30)
[2017-12-27] MEDS: FAMOTIDINE 20 MG TAB NG SCH ×2 (09:30→21:12)
[2017-12-27] MEDS: ASPIRIN 81 MG CHEW TAB CHEW SCH (09:31)
--- NOTE | 2017-12-27 15:37 | HHI.PR ---
Subjective Remarks Nursing denies any deterioration since last night. She does report surprisingly that the patient actually smiled a few times and that this was unprovoked. On my exam however the patient does not follow commands, she is only minimally opens her eyes and very slowly while doing so, does not track, makes no facial expressions with me. Objective Vital Signs Date Time Temp Pulse Resp B/P (MAP) Pulse Ox O2 Delivery O2 Flow Rate FiO2 12/27/17 12:00 98.4 75 16 116/69 (85) 98 12/27/17 10:22 98 T-piece 5.00 28 12/27/17 08:00 98.5 79 16 114/66 (82) 12/27/17 07:00 T-Piece 5.00 28 12/27/17 04:00 98.4 75 16 118/66 (83) 96 12/27/17 00:00 98.7 75 16 102/55 (71) 98 12/26/17 20:24 99 T-piece 5.00 28 12/26/17 20:00 16 12/26/17 19:19 99.1 102 16 143/78 (99) 97 12/26/17 19:00 T-Piece 5.00 28 12/26/17 16:00 98.2 82 16 135/91 (106) 98 I/O 12/26/17 12/26/17 12/26/17 12/27/17 12/27/17 12/27/17 07:00 15:00 23:00 07:00 15:00 23:00 Intake Total 0 ml 480 ml 515 ml Output Total 350 ml Balance 0 ml 480 ml 165 ml Intake Oral 0 ml 0 ml Tube Feeding 480 ml 395 ml Other 120 ml Output Urine Total 350 ml # Voids 2 4 1 # Bowel Movements 0 0 Result Diagram: 12/23/17 0601 12/25/17 0705 Objective Remarks No facial droop, no slurred speech, patient is nonverbal, nonresponsive. 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 Extensive workup negative including LP/CSF workup and cortisol level; only pertinent positives are mild to moderate ventriculomegaly on MRI 11/29 and severe encephalopathy noted on EEG. Repeat MRI on 12/11 showing ischemic changes high left parietal lobe. Neurology following. Acetaminophen 650 mg by tube every 6 hours as needed fever Elevated troponin Acute systolic heart failure ejection fraction 40% NSTEMI cardiomyopathy Atorvastatin 10 mg by tube daily on hold for elevated LFT's Continue aspirin 12/03- Cardiology has signed off Acute hypoxemic respiratory failure Iatrogenic PTX status post chest tube placement Continue with oxygen/TP's as harsha keep sats >92% Ventilator bundle. s/p trach on 12/16 Albuterol/ipratropium aerosols Pulm toilet, trach care Status post bronchoscopy 11/29. SBT/TP's daily as harsha Moderate protein energy malnutrition Elevated LFT's On tube feeds- Glucerna 1.5 @ 40 mL/h. s/p PEG tube placement 12/16 12/18 HIDA scan: unremarkable Docusate sodium/senna 1 tablet twice daily for bowel regimen 12/17 CT abdomen/pelvis from today showed trace amount of free air in the upper abdomen anterior to left lobe of the liver and adjacent to the stomach. this could be related to the G-tube. Moderately distended ascending and transverse colon. No obstruction. 12/12 US Liver: Marked gallbladder wall thickening with minimal pericholecystic fluid. No stones or sludge. Small bilateral pleural effusions. 12/03 gallbladder ultrasound -gallbladder mildly distended without evidence of wall thickening or cholelithiasis. There is ascites and pleural effusions. GI eval noted. Continue multivitamin/thiamine. thiamine via og Insulin-dependent diabetes mellitus type 1 uncontrolled Continue SSI NovoLog medium protocol with accucheck every 4 hours maintain euglycemia Levemir 10 units q 12 DVT -SCD/continue heparin SQ -Doppler US UE: Non-occlusive thrombus left IJ vein Discharge Planning Palliative care is following son expected to make decision in next week or so for withdrawal life support decision Aleks Pepe MD December 27, 2017 15:37
[2017-12-28] VITALS (8 sets, daily range): BP systolic 119–145; BP diastolic 66–83; PULSE 71–89; RESP 16–18; TEMP 97.6–99.7; O2SAT 97–99
[2017-12-28] MEDS: INSULIN ASPART SUPPLEMENTAL SCALE SQ SCH ×6 (00:46→20:00)
[2017-12-28] MEDS: HEPARIN SODIUM - SQ 10,000 UNITS/ML VIAL SQ SCH ×3 (02:47→16:59)
[2017-12-28] MEDS: CHLORHEXIDINE GLUCONATE 2 % 1 PACK (2 CLOTHS) TOP SCH (03:56)
[2017-12-28] MEDS: THIAMINE HCL 100 MG TAB OG-TUBE SCH (09:00)
[2017-12-28] MEDS: URSODIOL 300 MG CAP PO SCH ×2 (09:00→21:30)
[2017-12-28] MEDS: SODIUM CHLORIDE 0.9% FLUSH 10 ML FLUSH IV FLUSH SCH ×3 (09:00→21:30)
[2017-12-28] MEDS: FAMOTIDINE 20 MG TAB NG SCH ×2 (09:00→21:30)
[2017-12-28] MEDS: CARVEDILOL 12.5 MG TAB NG SCH ×2 (09:00→21:30)
[2017-12-28] MEDS: CHLORHEXIDINE 0.12% (ORAL KIT) 15 ML CUP MT SCH ×2 (09:01→20:00)
[2017-12-28] MEDS: MULTIVITAMIN TAB PO SCH (09:01)
[2017-12-28] MEDS: ARTIFICIAL TEARS OPTH OINT 3.5 APPLIC/3.5 GM TUBO EACH EYE SCH ×4 (09:01→21:31)
[2017-12-28] MEDS: ASPIRIN 81 MG CHEW TAB CHEW SCH (09:01)
[2017-12-28] MEDS: INSULIN DETEMIR 100 UNITS/ML VIAL SQ SCH ×2 (09:05→21:00)
--- NOTE | 2017-12-28 12:08 | HHI.PR ---
Subjective Remarks Follow up visit encephalopathy, NSTEMI, hypoxemic respiratory failure, Type 1 DM. Patient seen and examined today. As per nursing no acute issues overnight. Friends visited patient and he saw her intentionally smile and provided friends with hand senior environmental consultant. Patient eyes closed. Right hand able to aviation ordnance officer when pulled. Does not follow commands on exam. Appears comfortable. Objective Vitals Vital Signs Date Time Temp Pulse Resp B/P (MAP) Pulse Ox O2 Delivery O2 Flow Rate FiO2 12/28/17 09:43 97 T-piece 5.00 28 12/28/17 08:00 98.8 82 16 131/83 (99) 97 12/28/17 07:00 97 T-Piece 5.00 28 12/28/17 03:50 97.6 71 18 143/77 (99) 99 12/28/17 00:00 99.2 77 18 129/78 (95) 97 12/27/17 20:11 99.0 76 18 144/83 (103) 99 12/27/17 20:00 99 T-Piece 5.00 28 12/27/17 19:18 99 T-piece 5.00 28 12/27/17 16:00 97.8 74 16 135/66 (89) 98 I/O 12/27/17 12/27/17 12/27/17 12/28/17 12/28/17 12/28/17 07:00 15:00 23:00 07:00 15:00 23:00 Intake Total 515 ml 480 ml 600 ml Output Total 350 ml 550 ml 400 ml Balance 165 ml -70 ml 200 ml Intake Oral 0 ml 0 ml Tube Feeding 395 ml 480 ml 400 ml Other 120 ml 200 ml Output Urine Total 350 ml 550 ml 400 ml # Voids 1 # Bowel Movements 0 0 1 Result Diagram: 12/25/17 0705 Imaging Last Impressions Chest X-Ray 12/23/17 0600 Signed Impressions: Service Date/Time: Saturday, December 23, 2017 04:28 - CONCLUSION: Consolidations and pleural effusions are unchanged. Tracheostomy tube in good position. Landon Graham MD Liver Ultrasound 12/22/17 0000 Signed Impressions: Service Date/Time: Friday, December 22, 2017 09:40 - CONCLUSION: 1. Liver demonstrates no acute finding. However, there is a small volume of free fluid in the abdomen in a perihepatic location. 2. Persistent but overall decreased gallbladder wall thickening. 3. Bilateral pleural effusions. Uziel Troy MD Hepatobiliary Scan Nuclear Medicine 12/18/17 Signed Impressions: Service Date/Time: Monday, December 18, 2017 10:53 - CONCLUSION: 1. Normal uptake and excretion of radiotracer. Dimitri Bird MD ADDENDUM: The there is a air in the report under the medication sections it should read cholecystokinin was administered by slow infusion over 8 minutes beginning at the 60 minute jyoti. Dimitri Bird MD Abdomen/Pelvis CT 12/17/17 Signed Impressions: Service Date/Time: Sunday, December 17, 2017 15:44 - CONCLUSION: 1. There is a trace amount of free air in the upper abdomen anterior to left lobe of the liver and adjacent to the stomach. While nonspecific, this could be related to the G-tube. Suggest correlating with the clinical examination for signs of acute abdomen which would indicate a more concerning cause. 2. Moderately distended ascending and transverse colon. However, no anatomic obstruction is visualized. 3. Signs of fluid overload including bilateral pleural effusions, anasarca, periportal edema, and small volume of free fluid in the abdomen and pelvis. Uziel Troy MD Upper Extremity Ultrasound 12/15/17 Signed Impressions: Service Date/Time: Friday, December 15, 2017 13:57 - CONCLUSION: Nonocclusive thrombus within left internal jugular vein. The remaining venous structures in the left upper extremity appear patent. Uziel Thomas MD Neck CTA 12/11/17 Signed Impressions: Service Date/Time: Monday, December 11, 2017 23:08 - CONCLUSION: No carotid stenosis. Ac Davis MD Head CTA 12/11/17 0000 Signed Impressions: Service Date/Time: Monday, December 11, 2017 23:08 - CONCLUSION: 1. No large vessel stenosis or aneurysm. Ac Davis MD Brain MRI 12/11/17 0000 Signed Impressions: Service Date/Time: Monday, December 11, 2017 11:12 - CONCLUSION: 1. Faint diffusion restriction predominately along the high right parietal convexity with minimal diffusion restriction on the left. Pattern is somewhat unusual for anoxia with the asymmetry. Possible embolic event. CTA of the cervical and intracranial vessels to be performed for further characterization. 2. Chronic changes with some periventricular small vessel ischemic demyelination. 3. Mild ventricular prominence. In the appropriate clinical setting, findings could represent normal pressure hydrocephalus. 4. Bilateral mastoiditis. Mild chronic sinus disease in the sphenoid bilaterally. Dani Titus MD Gall Bladder Ultrasound 12/03/17 0000 Signed Impressions: Service Date/Time: Sunday, December 03, 2017 07:59 - CONCLUSION: 1. Ascites and bilateral pleural effusions. 2. Mildly distended gallbladder without evidence of wall thickening or cholelithiasis. 3. Otherwise unremarkable exam. Boo Cartwright MD Lumbar Puncture Fluoroscopy 12/02/17 0000 Signed Impressions: Service Date/Time: Saturday, December 02, 2017 15:28 - CONCLUSION: Uncomplicated fluoroscopically guided lumbar puncture. Aly Leigh MD Renal Ultrasound 11/29/17 1656 Signed Impressions: Service Date/Time: Wednesday, November 29, 2017 13:16 - CONCLUSION: 1. Both kidneys are sonographically normal without hydronephrosis or nephrolithiasis. 2. Very abnormal appearance of the gallbladder with mural thickening and minimal pericholecystic fluid Dani Titus MD Head CT 11/28/17 0000 Signed Impressions: Service Date/Time: November 15:46 - CONCLUSION: 1. Ventriculomegaly suggesting central cerebral atrophy versus hydrocephalus. Clinical correlation is recommended. 2. No acute infarct, acute hemorrhage, midline shift or extra-axial fluid collections. Dev Christopher MD Objective Remarks GENERAL: This is a thin appearing patient, in no apparent distress. CARDIOVASCULAR: Regular rate and rhythm without murmurs, gallops, or rubs. RESPIRATORY: No wheezes, rales, or rhonchi. Diminished bases. GASTROINTESTINAL: Abdomen soft, non-tender, nondistended. Normal active bowel sounds. PEG in place. MUSCULOSKELETAL: Extremities without clubbing, cyanosis, or edema. NEURO: Eyes closed. NonVerbal. Spontaneously aviation ordnance officer with her right hand in an unprovoked fashion but will not respond to commands when prompted Procedures 12/02- lumbar puncture Date of Insertion: Nov 28, 2017 Line: Central Venous Catheter Side: Left Location: Internal, Jugular A/P Problem List: (1) Macrocytic anemia ICD Code: D53.9 - Nutritional anemia, unspecified (2) Leukocytosis ICD Code: D72.829 - Elevated white blood cell count, unspecified Status: Resolved (3) Acute kidney injury ICD Code: N17.9 - Acute kidney failure, unspecified (4) Hyponatremia ICD Code: E87.1 - Hypo-osmolality and hyponatremia (5) Hypotension ICD Code: I95.9 - Hypotension, unspecified (6) DM type 1 (diabetes mellitus, type 1) ICD Code: E10.9 - DM type 1 (diabetes mellitus, type 1) Status: Acute (7) DKA (diabetic ketoacidoses) ICD Code: E13.10 - Other specified diabetes mellitus with ketoacidosis without coma Status: Resolved (8) Acute renal failure ICD Code: N17.9 - Acute kidney failure, unspecified Status: Acute (9) Hyperkalemia ICD Code: E87.5 - Hyperkalemia Status: Acute (10) Shock ICD Code: R57.9 - Shock, unspecified Status: Acute (11) Tobacco abuse ICD Code: Z72.0 - Tobacco abuse Status: Acute Assessment and Plan 62-year-old female with primary medical history of type 1 diabetes who initially came to the hospital with diabetic ketoacidosis. Patient went into respiratory failure and shock she got intubated. Required pressor support. She had seizure activity. Patient now hemodynamically stable but remains encephalopathic. She is now on the vent unit with tracheostomy and PEG tube placed. Encephalopathy Off sedation since 12/04 still not responsive. Extensive workup negative including LP/CSF workup and cortisol level; only pertinent positives are mild to moderate ventriculomegaly on MRI 11/29. Severe encephalopathy noted on 12/11 EEG. Repeat MRI on 12/11 showing ischemic changes high left parietal lobe. Neurology following. Acetaminophen 650 mg by tube every 6 hours as needed fever Elevated troponin Acute systolic heart failure ejection fraction 40% NSTEMI Cardiomyopathy Atorvastatin 10 mg by tube daily on hold for elevated LFT's Continue aspirin 12/03- Cardiology has signed off Acute hypoxemic respiratory failure Iatrogenic PTX status post chest tube placement Continue with oxygen/TP's as tolerated keep sats >92% S/p trach on 12/16 Albuterol/ipratropium aerosols Pulmonary toilet, trach care Status post bronchoscopy 11/29. Moderate protein energy malnutrition Elevated LFT's s/p PEG tube placement 12/16. On tube feeds- Glucerna 1.5 @ 40 mL/h. 12/18 HIDA scan: unremarkable 12/17 CT abdomen/pelvis from today showed trace amount of free air in the upper abdomen anterior to left lobe of the liver and adjacent to the stomach. this could be related to the G-tube. Moderately distended ascending and transverse colon. No obstruction. Docusate sodium/senna 1 tablet twice daily for bowel regimen 12/12 US Liver: Marked gallbladder wall thickening with minimal pericholecystic fluid. No stones or sludge. Small bilateral pleural effusions. 12/03 gallbladder ultrasound -gallbladder mildly distended without evidence of wall thickening or cholelithiasis. There is ascites and pleural effusions. GI eval noted. Continue multivitamin/thiamine. Insulin-dependent diabetes mellitus type 1 uncontrolled Continue SSI NovoLog medium protocol with accucheck every 4 hours maintain euglycemia Levemir 10 units q 12 DVT SCD/continue heparin SQ Doppler US UE: Non-occlusive thrombus left IJ vein Discharge Planning Per positive care notes 12/20/17, son Prince mckinney make a decision in the next 1-2 weeks whether to withdraw life support Problem Qualifiers (1) Leukocytosis: Qualified Codes: D72.829 - Elevated white blood cell count, unspecified (2) Hypotension: Qualified Codes: I95.9 - Hypotension, unspecified (3) DM type 1 (diabetes mellitus, type 1): Qualified Codes: E10.69 - Type 1 diabetes mellitus with other specified complication; E10.65 - Type 1 diabetes mellitus with hyperglycemia (4) DKA (diabetic ketoacidoses): Qualified Codes: E10.11 - Type 1 diabetes mellitus with ketoacidosis with coma (5) Acute renal failure: Qualified Codes: N17.9 - Acute kidney failure, unspecified Tuyet Neely December 28, 2017 12:08
[2017-12-29] VITALS (8 sets, daily range): BP systolic 128–155; BP diastolic 74–86; PULSE 72–90; RESP 16–18; TEMP 98.3–98.8; O2SAT 97–100
[2017-12-29] MEDS: HEPARIN SODIUM - SQ 10,000 UNITS/ML VIAL SQ SCH ×3 (02:00→18:08)
[2017-12-29] MEDS: CHLORHEXIDINE GLUCONATE 2 % 1 PACK (2 CLOTHS) TOP SCH (04:00)
[2017-12-29] MEDS: INSULIN ASPART SUPPLEMENTAL SCALE SQ SCH ×4 (04:00→17:20)
[2017-12-29] MEDS: CHLORHEXIDINE 0.12% (ORAL KIT) 15 ML CUP MT SCH (08:00)
[2017-12-29] MEDS: SODIUM CHLORIDE 0.9% FLUSH 10 ML FLUSH IV FLUSH SCH ×3 (09:00→21:00)
[2017-12-29] MEDS ORDERED: MAGNESIUM HYDROXIDE SUSP 30 ML CUP PEG PRN (09:30)
[2017-12-29] MEDS ORDERED: SENNOSIDES 8.6 MG TAB PEG PRN (09:30)
--- NOTE | 2017-12-29 09:31 | HHI.PR ---
Subjective Remarks Follow up visit encephalopathy, NSTEMI, hypoxemic respiratory failure, Type 1 DM. Patient seen and examined today. As per RN no acute issues overnight. States that son Jamin wants to speak with providers for update. He also wants to discuss placing the patient with DO NOT RESUSCITATE. Patient appears comfortable. Bilateral lower extremity withdrawal to tactile and painful stimulus. Patient eyes opening to noxious stimulus. Right upper arm marketing reps sports and entertainment when pulled. Patient was also able to track on and off does not follow any commands. She made a smile, does not appear to be meaningful. Objective Vitals Vital Signs Date Time Temp Pulse Resp B/P (MAP) Pulse Ox O2 Delivery O2 Flow Rate FiO2 12/29/17 08:55 100 T-piece 5.00 28 12/29/17 03:47 98.5 72 16 128/78 (95) 99 12/29/17 00:26 98.5 75 16 140/74 (96) 99 12/28/17 21:06 99 T-piece 28 12/28/17 20:00 98 T-Piece 5.00 28 12/28/17 19:29 99.7 89 18 145/78 (100) 99 12/28/17 16:00 99.1 73 18 135/66 (89) 99 12/28/17 12:00 99.0 80 16 119/69 (86) 99 12/28/17 09:43 97 T-piece 5.00 28 I/O 12/28/17 12/28/17 12/28/17 12/29/17 12/29/17 12/29/17 07:00 15:00 23:00 07:00 15:00 23:00 Intake Total 600 ml 463 ml 585 ml Output Total 400 ml 500 ml 550 ml Balance 200 ml -37 ml 35 ml Tube Feeding 400 ml 373 ml 465 ml Other 200 ml 90 ml 120 ml Output Urine Total 400 ml 500 ml 550 ml # Bowel Movements 1 0 1 Result Diagram: 12/25/17 0705 Imaging Last Impressions Chest X-Ray 12/23/17 0600 Signed Impressions: Service Date/Time: Saturday, December 23, 2017 04:28 - CONCLUSION: Consolidations and pleural effusions are unchanged. Tracheostomy tube in good position. Landon Graham MD Liver Ultrasound 12/22/17 0000 Signed Impressions: Service Date/Time: Friday, December 22, 2017 09:40 - CONCLUSION: 1. Liver demonstrates no acute finding. However, there is a small volume of free fluid in the abdomen in a perihepatic location. 2. Persistent but overall decreased gallbladder wall thickening. 3. Bilateral pleural effusions. Uziel Troy MD Hepatobiliary Scan Nuclear Medicine 12/18/17 0000 Signed Impressions: Service Date/Time: Monday, December 18, 2017 10:53 - CONCLUSION: 1. Normal uptake and excretion of radiotracer. Dimitri Bird MD ADDENDUM: The there is a air in the report under the medication sections it should read cholecystokinin was administered by slow infusion over 8 minutes beginning at the 60 minute jyoti. Dimitri Bird MD Abdomen/Pelvis CT 12/17/17 Signed Impressions: Service Date/Time: Sunday, December 17, 2017 15:44 - CONCLUSION: 1. There is a trace amount of free air in the upper abdomen anterior to left lobe of the liver and adjacent to the stomach. While nonspecific, this could be related to the G-tube. Suggest correlating with the clinical examination for signs of acute abdomen which would indicate a more concerning cause. 2. Moderately distended ascending and transverse colon. However, no anatomic obstruction is visualized. 3. Signs of fluid overload including bilateral pleural effusions, anasarca, periportal edema, and small volume of free fluid in the abdomen and pelvis. Uziel Troy MD Upper Extremity Ultrasound 12/15/17 Signed Impressions: Service Date/Time: Friday, December 15, 2017 13:57 - CONCLUSION: Nonocclusive thrombus within left internal jugular vein. The remaining venous structures in the left upper extremity appear patent. Uziel Thomas MD Neck CTA 12/11/17 0000 Signed Impressions: Service Date/Time: Monday, December 11, 2017 23:08 - CONCLUSION: No carotid stenosis. Ac Davis MD Head CTA 12/11/17 0000 Signed Impressions: Service Date/Time: Monday, December 11, 2017 23:08 - CONCLUSION: 1. No large vessel stenosis or aneurysm. Ac Davis MD Brain MRI 12/11/17 0000 Signed Impressions: Service Date/Time: Monday, December 11, 2017 11:12 - CONCLUSION: 1. Faint diffusion restriction predominately along the high right parietal convexity with minimal diffusion restriction on the left. Pattern is somewhat unusual for anoxia with the asymmetry. Possible embolic event. CTA of the cervical and intracranial vessels to be performed for further characterization. 2. Chronic changes with some periventricular small vessel ischemic demyelination. 3. Mild ventricular prominence. In the appropriate clinical setting, findings could represent normal pressure hydrocephalus. 4. Bilateral mastoiditis. Mild chronic sinus disease in the sphenoid bilaterally. Dani Titus MD Gall Bladder Ultrasound 12/03/17 0000 Signed Impressions: Service Date/Time: Sunday, December 03, 2017 07:59 - CONCLUSION: 1. Ascites and bilateral pleural effusions. 2. Mildly distended gallbladder without evidence of wall thickening or cholelithiasis. 3. Otherwise unremarkable exam. Boo Cartwright MD Lumbar Puncture Fluoroscopy 12/02/17 0000 Signed Impressions: Service Date/Time: Saturday, December 02, 2017 15:28 - CONCLUSION: Uncomplicated fluoroscopically guided lumbar puncture. Aly Leigh MD Renal Ultrasound 11/29/17 1656 Signed Impressions: Service Date/Time: Wednesday, November 29, 2017 13:16 - CONCLUSION: 1. Both kidneys are sonographically normal without hydronephrosis or nephrolithiasis. 2. Very abnormal appearance of the gallbladder with mural thickening and minimal pericholecystic fluid Dani Titus MD Head CT 11/28/17 0000 Signed Impressions: Service Date/Time: November 15:46 - CONCLUSION: 1. Ventriculomegaly suggesting central cerebral atrophy versus hydrocephalus. Clinical correlation is recommended. 2. No acute infarct, acute hemorrhage, midline shift or extra-axial fluid collections. Dev Christopher MD Objective Remarks GENERAL: This is a thin appearing patient, in no apparent distress. CARDIOVASCULAR: Regular rate and rhythm without murmurs, gallops, or rubs. RESPIRATORY: No wheezes, rales, or rhonchi. Diminished bases. GASTROINTESTINAL: Abdomen soft, non-tender, nondistended. Normal active bowel sounds. PEG in place. MUSCULOSKELETAL: Extremities without clubbing, cyanosis, or edema. Bilateral foot drop. Left arm stiffness no spontaneous movement noted. Bilateral lower extremity flexion to tactile and noxious stimulus NEURO: Eyes closed. NonVerbal. Spontaneously marketing reps sports and entertainment with her right hand in an unprovoked fashion but will not respond to commands when prompted Procedures 12/02- lumbar puncture Date of Insertion: Nov 28, 2017 Line: Central Venous Catheter Side: Left Location: Internal, Jugular A/P Problem List: (1) Macrocytic anemia ICD Code: D53.9 - Nutritional anemia, unspecified (2) Leukocytosis ICD Code: D72.829 - Elevated white blood cell count, unspecified Status: Resolved (3) Acute kidney injury ICD Code: N17.9 - Acute kidney failure, unspecified (4) Hyponatremia ICD Code: E87.1 - Hypo-osmolality and hyponatremia (5) Hypotension ICD Code: I95.9 - Hypotension, unspecified (6) DM type 1 (diabetes mellitus, type 1) ICD Code: E10.9 - DM type 1 (diabetes mellitus, type 1) Status: Acute (7) DKA (diabetic ketoacidoses) ICD Code: E13.10 - Other specified diabetes mellitus with ketoacidosis without coma Status: Resolved (8) Acute renal failure ICD Code: N17.9 - Acute kidney failure, unspecified Status: Acute (9) Hyperkalemia ICD Code: E87.5 - Hyperkalemia Status: Acute (10) Shock ICD Code: R57.9 - Shock, unspecified Status: Acute (11) Tobacco abuse ICD Code: Z72.0 - Tobacco abuse Status: Acute Assessment and Plan 62-year-old female with primary medical history of type 1 diabetes who initially came to the hospital with diabetic ketoacidosis. Patient went into respiratory failure and shock she got intubated. Required pressor support. She had seizure activity. Patient now hemodynamically stable but remains encephalopathic. She is now on the vent unit with tracheostomy and PEG tube placed. Encephalopathy Off sedation since 12/04 still not responsive. Extensive workup negative including LP/CSF workup and cortisol level; only pertinent positives are mild to moderate ventriculomegaly on MRI 11/29. Severe encephalopathy noted on 12/11 EEG. Repeat MRI on 12/11 showing ischemic changes high left parietal lobe. Neurology following. Appreciate recommendations. F/U EEG 12/16 without definite seizure activity noted. Phenytoin and phenobarbital is discontinued. Acetaminophen 650 mg by tube every 6 hours as needed fever No meaningful activities. Positive care following for son to make medical decisions Phone call was placed to wilner Neville today 12/29/17 and left a message. Elevated troponin Acute systolic heart failure ejection fraction 40% NSTEMI Cardiomyopathy Atorvastatin 10 mg by tube daily on hold for elevated LFT's Continue aspirin 12/03- Cardiology has signed off Acute hypoxemic respiratory failure Iatrogenic PTX status post chest tube placement Continue with oxygen/TP's as tolerated keep sats >92% S/p trach on 12/16 Albuterol/ipratropium aerosols Pulmonary toilet, trach care Status post bronchoscopy 11/29. Moderate protein energy malnutrition Elevated LFT's s/p PEG tube placement 12/16. On tube feeds- Glucerna 1.5 @ 40 mL/h. 12/18 HIDA scan: unremarkable 12/17 CT abdomen/pelvis from today showed trace amount of free air in the upper abdomen anterior to left lobe of the liver and adjacent to the stomach. this could be related to the G-tube. Moderately distended ascending and transverse colon. No obstruction. Docusate sodium/senna 1 tablet twice daily for bowel regimen 12/12 US Liver: Marked gallbladder wall thickening with minimal pericholecystic fluid. No stones or sludge. Small bilateral pleural effusions. 12/03 gallbladder ultrasound -gallbladder mildly distended without evidence of wall thickening or cholelithiasis. There is ascites and pleural effusions. GI eval noted. Continue multivitamin/thiamine. Insulin-dependent diabetes mellitus type 1 uncontrolled Continue SSI NovoLog medium protocol with accucheck every 6hours maintain euglycemia Levemir 10 units q 12 DVT SCD/continue heparin SQ Doppler US UE: Non-occlusive thrombus left IJ vein Discharge Planning Per positive care notes 12/20/17, son Prince mckinney make a decision in the next 1-2 weeks whether to withdraw life support Problem Qualifiers (1) Leukocytosis: Qualified Codes: D72.829 - Elevated white blood cell count, unspecified (2) Hypotension: Qualified Codes: I95.9 - Hypotension, unspecified (3) DM type 1 (diabetes mellitus, type 1): Qualified Codes: E10.69 - Type 1 diabetes mellitus with other specified complication; E10.65 - Type 1 diabetes mellitus with hyperglycemia (4) DKA (diabetic ketoacidoses): Qualified Codes: E10.11 - Type 1 diabetes mellitus with ketoacidosis with coma (5) Acute renal failure: Qualified Codes: N17.9 - Acute kidney failure, unspecified Tuyet Neely December 29, 2017 9:31 am
[2017-12-29] MEDS ORDERED: FREE WATER SCH (10:00)
[2017-12-29] MEDS: URSODIOL 300 MG CAP PO SCH ×2 (10:20→21:29)
[2017-12-29] MEDS: ASPIRIN 81 MG CHEW TAB PEG SCH (10:21)
[2017-12-29] MEDS: FAMOTIDINE 20 MG TAB PEG SCH ×2 (10:21→21:30)
[2017-12-29] MEDS: CARVEDILOL 12.5 MG TAB PEG SCH ×2 (10:21→21:30)
[2017-12-29] MEDS ORDERED: ARTIFICIAL TEARS OPTH OINT 3.5 APPLIC/3.5 GM TUBO EACH EYE PRN (10:30)
[2017-12-29] MEDS: [UNRECOGNIZED DRUG - REMARK] PEG SCH ×3 (10:46→21:49)
[2017-12-29 10:51] LABS: AUTOMATED NEUTROPHIL # 7.1 TH/MM3 (1.8-7.7); BASOPHIL # 0.1 TH/MM3 (0-0.2); BASOPHIL % 0.8 % (0.0-2.0); EOSINOPHIL # 0.2 TH/MM3 (0-0.4); EOSINOPHIL % 1.9 % (0.0-4.0); HEMATOCRIT 33.6 % (35.0-46.0); HEMOGLOBIN 11.3 GM/DL (11.6-15.3); LYMPH % 15.6 % (9.0-44.0); LYMPHOCYTE # 1.6 TH/MM3 (1.0-4.8); MEAN CELL VOLUME 96.3 FL (80.0-100.0); MEAN CORPUSCULAR HEMOGLOBIN 32.3 PG (27.0-34.0); MEAN CORPUSCULAR HGB CONC 33.6 % (32.0-36.0); MEAN PLATELET VOLUME 8.7 FL (7.0-11.0); MONO % 10.6 % (0.0-8.0); MONOCYTE # 1.1 TH/MM3 (0-0.9); NEUT % 71.1 % (16.0-70.0); PLATELET COUNT 415 TH/MM3 (150-450); RED BLOOD COUNT 3.49 MIL/MM3 (4.00-5.30); RED CELL DISTRIBUTION WIDTH 14.1 % (11.6-17.2); WHITE BLOOD COUNT 9.9 TH/MM3 (4.0-11.0)
[2017-12-29 11:11] LABS: ALBUMIN 2.8 GM/DL (3.4-5.0); AST (GOT) 28 U/L (15-37); BICARBONATE 28.5 MEQ/L (21.0-32.0); BLOOD UREA NITROGEN 18 MG/DL (7-18); CALCIUM 8.9 MG/DL (8.5-10.1); CHLORIDE 99 MEQ/L (98-107); CREATININE 0.51 MG/DL (0.50-1.00); GLOMERULAR FILTRATION RATE 121 ML/MIN (>89); GLUCOSE,RANDOM 234 MG/DL (74-106); SODIUM (NA) 135 MEQ/L (136-145)
[2017-12-29 11:12] LABS: ALT (GPT) 42 U/L (10-53)
[2017-12-29 11:14] LABS: ALKALINE PHOSPHATASE 555 U/L (45-117); TOTAL BILIRUBIN ADULT 0.3 MG/DL (0.2-1.0); TOTAL PROTEIN 6.8 GM/DL (6.4-8.2)
[2017-12-29] MEDS: INSULIN DETEMIR 100 UNITS/ML VIAL SQ SCH (11:39)
--- NOTE | 2017-12-29 14:46 | HHI.PR ---
Addendum to Inpatient Note Addendum Reason: Additional Documentation Additional Information Spoke with Son Jamin. Updated with patients clinical condition, non meaning movements/retractions. States as per neurology will give "patient little more time to see any significant improvement, but we really don't know how much she would improve." Son is requests scan studies in 2 weeks to determine prognosis. States his "mother would not want this condition to be prolonged." Discussed recent lab results. Discussed code status. Son states need to change to DO NOT Resuscitate. Code status has been changed. Will continue to update son of patient condition. Tuyet Neely [facility] December 29, 2017 14:46
[2017-12-30] VITALS (8 sets, daily range): BP systolic 128–147; BP diastolic 71–87; PULSE 66–90; RESP 16–18; TEMP 97.5–99.2; O2SAT 99–100
[2017-12-30] MEDS: HEPARIN SODIUM - SQ 10,000 UNITS/ML VIAL SQ SCH ×3 (02:56→16:57)
[2017-12-30] MEDS: CHLORHEXIDINE GLUCONATE 2 % 1 PACK (2 CLOTHS) TOP SCH (04:00)
[2017-12-30] MEDS: INSULIN ASPART SUPPLEMENTAL SCALE SQ SCH ×4 (06:00→18:00)
[2017-12-30] MEDS: FAMOTIDINE 20 MG TAB PEG SCH ×2 (08:42→20:35)
[2017-12-30] MEDS: ASPIRIN 81 MG CHEW TAB PEG SCH (08:42)
[2017-12-30] MEDS: CARVEDILOL 12.5 MG TAB PEG SCH ×2 (08:42→20:35)
[2017-12-30] MEDS: URSODIOL 300 MG CAP PO SCH ×2 (08:42→20:35)
[2017-12-30] MEDS: SODIUM CHLORIDE 0.9% FLUSH 10 ML FLUSH IV FLUSH SCH ×3 (09:00→20:35)
[2017-12-30] MEDS: [UNRECOGNIZED DRUG - REMARK] PEG SCH ×3 (10:00→20:35)
--- NOTE | 2017-12-30 10:07 | HHI.PR ---
Subjective Remarks Follow up visit encephalopathy, NSTEMI, hypoxemic respiratory failure, Type 1 DM. Patient seen and examined today. As per RN no acute issues overnight. Patient was with physical therapy getting repositioned. Awake and alert. Patient is able to give a smile when asked. 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 Appears comfortable. Objective Vitals Vital Signs Date Time Temp Pulse Resp B/P (MAP) Pulse Ox O2 Delivery O2 Flow Rate FiO2 12/30/17 08:56 100 T-piece 5.00 28 12/30/17 04:00 98.3 81 18 132/87 (102) 99 12/30/17 00:00 98.0 71 18 144/75 (98) 99 12/29/17 21:59 99 T-piece 5.00 28 12/29/17 20:00 98 T-Piece 5.00 28 12/29/17 20:00 98.8 83 18 155/84 (107) 97 12/29/17 16:00 98.4 73 16 149/77 (101) 98 12/29/17 12:00 98.3 90 16 142/86 (104) 99 I/O 12/29/17 12/29/17 12/29/17 12/30/17 12/30/17 12/30/17 07:00 15:00 23:00 07:00 15:00 23:00 Intake Total 585 ml 632 ml 900 ml Output Total 550 ml 600 ml 3 ml Balance 35 ml 32 ml 897 ml Tube Feeding 465 ml 382 ml 450 ml Other 120 ml 250 ml 450 ml Output Urine Total 550 ml 600 ml 3 ml # Bowel Movements 1 1 1 Result Diagram: 12/29/1725 12/29/17 0925 Imaging Last Impressions Chest X-Ray 12/23/17 0600 Signed Impressions: Service Date/Time: Saturday, December 23, 2017 04:28 - CONCLUSION: Consolidations and pleural effusions are unchanged. Tracheostomy tube in good position. Landon Graham MD Liver Ultrasound 12/22/17 0000 Signed Impressions: Service Date/Time: Friday, December 22, 2017 09:40 - CONCLUSION: 1. Liver demonstrates no acute finding. However, there is a small volume of free fluid in the abdomen in a perihepatic location. 2. Persistent but overall decreased gallbladder wall thickening. 3. Bilateral pleural effusions. Uziel Troy MD Hepatobiliary Scan Nuclear Medicine 12/18/17 Signed Impressions: Service Date/Time: Monday, December 18, 2017 10:53 - CONCLUSION: 1. Normal uptake and excretion of radiotracer. Dimitri Bird MD ADDENDUM: The there is a air in the report under the medication sections it should read cholecystokinin was administered by slow infusion over 8 minutes beginning at the 60 minute jyoti. Dimitri Bird MD Abdomen/Pelvis CT 12/17/17 Signed Impressions: Service Date/Time: Sunday, December 17, 2017 15:44 - CONCLUSION: 1. There is a trace amount of free air in the upper abdomen anterior to left lobe of the liver and adjacent to the stomach. While nonspecific, this could be related to the G-tube. Suggest correlating with the clinical examination for signs of acute abdomen which would indicate a more concerning cause. 2. Moderately distended ascending and transverse colon. However, no anatomic obstruction is visualized. 3. Signs of fluid overload including bilateral pleural effusions, anasarca, periportal edema, and small volume of free fluid in the abdomen and pelvis. Uziel Troy MD Upper Extremity Ultrasound 12/15/17 Signed Impressions: Service Date/Time: Friday, December 15, 2017 13:57 - CONCLUSION: Nonocclusive thrombus within left internal jugular vein. The remaining venous structures in the left upper extremity appear patent. Uziel Thomas MD Neck CTA 12/11/17 Signed Impressions: Service Date/Time: Monday, December 11, 2017 23:08 - CONCLUSION: No carotid stenosis. Ac Davis MD Head CTA 12/11/17 0000 Signed Impressions: Service Date/Time: Monday, December 11, 2017 23:08 - CONCLUSION: 1. No large vessel stenosis or aneurysm. Ac Davis MD Brain MRI 12/11/17 Signed Impressions: Service Date/Time: Monday, December 11, 2017 11:12 - CONCLUSION: 1. Faint diffusion restriction predominately along the high right parietal convexity with minimal diffusion restriction on the left. Pattern is somewhat unusual for anoxia with the asymmetry. Possible embolic event. CTA of the cervical and intracranial vessels to be performed for further characterization. 2. Chronic changes with some periventricular small vessel ischemic demyelination. 3. Mild ventricular prominence. In the appropriate clinical setting, findings could represent normal pressure hydrocephalus. 4. Bilateral mastoiditis. Mild chronic sinus disease in the sphenoid bilaterally. Dani Titus MD Gall Bladder Ultrasound 12/03/17 0000 Signed Impressions: Service Date/Time: Sunday, December 03, 2017 07:59 - CONCLUSION: 1. Ascites and bilateral pleural effusions. 2. Mildly distended gallbladder without evidence of wall thickening or cholelithiasis. 3. Otherwise unremarkable exam. Boo Cartwright MD Lumbar Puncture Fluoroscopy 12/02/17 0000 Signed Impressions: Service Date/Time: Saturday, December 02, 2017 15:28 - CONCLUSION: Uncomplicated fluoroscopically guided lumbar puncture. Aly Leigh MD Renal Ultrasound 11/29/17 1656 Signed Impressions: Service Date/Time: Wednesday, November 29, 2017 13:16 - CONCLUSION: 1. Both kidneys are sonographically normal without hydronephrosis or nephrolithiasis. 2. Very abnormal appearance of the gallbladder with mural thickening and minimal pericholecystic fluid Dani Titus MD Head CT 11/28/17 0000 Signed Impressions: Service Date/Time: November 15:46 - CONCLUSION: 1. Ventriculomegaly suggesting central cerebral atrophy versus hydrocephalus. Clinical correlation is recommended. 2. No acute infarct, acute hemorrhage, midline shift or extra-axial fluid collections. Dev Christopher MD Objective Remarks GENERAL: This is a thin appearing patient, in no apparent distress. CARDIOVASCULAR: Regular rate and rhythm without murmurs, gallops, or rubs. RESPIRATORY: No wheezes, rales, or rhonchi. Diminished bases. GASTROINTESTINAL: Abdomen soft, non-tender, nondistended. Normal active bowel sounds. PEG in place. MUSCULOSKELETAL: Extremities without clubbing, cyanosis, or edema. Bilateral foot drop. Left arm stiffness no spontaneous movement noted. Bilateral lower extremity flexion to tactile and noxious stimulus NEURO: Awake. NonVerbal. 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 Able to provide a smile when asked. Procedures 12/02- lumbar puncture Date of Insertion: Nov 28, 2017 Line: Central Venous Catheter Side: Left Location: Internal, Jugular A/P Problem List: (1) Macrocytic anemia ICD Code: D53.9 - Nutritional anemia, unspecified (2) Leukocytosis ICD Code: D72.829 - Elevated white blood cell count, unspecified Status: Resolved (3) Acute kidney injury ICD Code: N17.9 - Acute kidney failure, unspecified (4) Hyponatremia ICD Code: E87.1 - Hypo-osmolality and hyponatremia (5) Hypotension ICD Code: I95.9 - Hypotension, unspecified (6) DM type 1 (diabetes mellitus, type 1) ICD Code: E10.9 - DM type 1 (diabetes mellitus, type 1) Status: Acute (7) DKA (diabetic ketoacidoses) ICD Code: E13.10 - Other specified diabetes mellitus with ketoacidosis without coma Status: Resolved (8) Acute renal failure ICD Code: N17.9 - Acute kidney failure, unspecified Status: Acute (9) Hyperkalemia ICD Code: E87.5 - Hyperkalemia Status: Acute (10) Shock ICD Code: R57.9 - Shock, unspecified Status: Acute (11) Tobacco abuse ICD Code: Z72.0 - Tobacco abuse Status: Acute Assessment and Plan 62-year-old female with primary medical history of type 1 diabetes who initially came to the hospital with diabetic ketoacidosis. Patient went into respiratory failure and shock she got intubated. Required pressor support. She had seizure activity. Patient now hemodynamically stable but remains encephalopathic. She is now on the vent unit with tracheostomy and PEG tube placed. Encephalopathy Off sedation since 12/04 still not responsive. Extensive workup negative including LP/CSF workup and cortisol level; only pertinent positives are mild to moderate ventriculomegaly on MRI 11/29. Severe encephalopathy noted on 12/11 EEG. Repeat MRI on 12/11 showing ischemic changes high left parietal lobe. Neurology following. Appreciate recommendations. F/U EEG 12/16 without definite seizure activity noted. Phenytoin and phenobarbital is discontinued. Acetaminophen 650 mg by tube every 6 hours as needed fever No meaningful activities. Palliative care following for son to make medical decisions Spoke with son yesterday 12/29/17. Patient made DNR. Son is requesting repeat imaging studies in 2 weeks to identify any worsening status or if patient remains the same without meaningful recovery. Son states that "she would not like this to be prolonged." Palliative Care will continue to follow. Elevated troponin Acute systolic heart failure ejection fraction 40% NSTEMI Cardiomyopathy Atorvastatin 10 mg by tube daily on hold for elevated LFT's Continue aspirin 12/03- Cardiology has signed off Acute hypoxemic respiratory failure Iatrogenic PTX status post chest tube placement Continue with oxygen/TP's as tolerated keep sats >92% S/p trach on 12/16 Albuterol/ipratropium aerosols Pulmonary toilet, trach care Status post bronchoscopy 11/29. Moderate protein energy malnutrition Elevated LFT's s/p PEG tube placement 12/16. On tube feeds- Glucerna 1.5 @ 40 mL/h. 12/18 HIDA scan: unremarkable 12/17 CT abdomen/pelvis from today showed trace amount of free air in the upper abdomen anterior to left lobe of the liver and adjacent to the stomach. this could be related to the G-tube. Moderately distended ascending and transverse colon. No obstruction. Docusate sodium/senna 1 tablet twice daily for bowel regimen 12/12 US Liver: Marked gallbladder wall thickening with minimal pericholecystic fluid. No stones or sludge. Small bilateral pleural effusions. 12/03 gallbladder ultrasound -gallbladder mildly distended without evidence of wall thickening or cholelithiasis. There is ascites and pleural effusions. GI eval noted. Continue multivitamin/thiamine. Insulin-dependent diabetes mellitus type 1 uncontrolled Continue SSI NovoLog medium protocol with accucheck every 6hours. Increase to Levemir 12 units q 12. Monitor for hypoglycemia DVT SCD/continue heparin SQ Doppler US UE: Non-occlusive thrombus left IJ vein Discharge Planning Active care following. SonJamin is the decision-maker. Requesting for repeat studies in 2 weeks to be able to assess whether to withdraw care or not Problem Qualifiers (1) Leukocytosis: Qualified Codes: D72.829 - Elevated white blood cell count, unspecified (2) Hypotension: Qualified Codes: I95.9 - Hypotension, unspecified (3) DM type 1 (diabetes mellitus, type 1): Qualified Codes: E10.69 - Type 1 diabetes mellitus with other specified complication; E10.65 - Type 1 diabetes mellitus with hyperglycemia (4) DKA (diabetic ketoacidoses): Qualified Codes: E10.11 - Type 1 diabetes mellitus with ketoacidosis with coma (5) Acute renal failure: Qualified Codes: N17.9 - Acute kidney failure, unspecified Eliezer Neelyn [facility] December 30, 2017 10:07
[2017-12-30] MEDS: INSULIN DETEMIR 100 UNITS/ML VIAL SQ SCH ×2 (12:00)
[2017-12-31] VITALS (10 sets, daily range): BP systolic 132–155; BP diastolic 74–89; PULSE 73–92; RESP 16; TEMP 96.9–99.2; O2SAT 95–100
[2017-12-31] MEDS: INSULIN DETEMIR 100 UNITS/ML VIAL SQ SCH ×3 (00:46→23:54)
[2017-12-31] MEDS: INSULIN ASPART SUPPLEMENTAL SCALE SQ SCH ×5 (00:47→23:55)
[2017-12-31] MEDS: HEPARIN SODIUM - SQ 10,000 UNITS/ML VIAL SQ SCH ×3 (02:14→17:24)
[2017-12-31] MEDS: [UNRECOGNIZED DRUG - REMARK] PEG SCH ×4 (04:00→22:00)
[2017-12-31] MEDS: SODIUM CHLORIDE 0.9% FLUSH 10 ML FLUSH IV FLUSH SCH ×3 (09:00→20:13)
[2017-12-31] MEDS: URSODIOL 300 MG CAP PO SCH ×2 (09:00→20:12)
[2017-12-31] MEDS: FAMOTIDINE 20 MG TAB PEG SCH ×2 (09:02→20:12)
[2017-12-31] MEDS: ASPIRIN 81 MG CHEW TAB PEG SCH (09:02)
[2017-12-31] MEDS: CARVEDILOL 12.5 MG TAB PEG SCH ×2 (09:02→20:12)
--- NOTE | 2017-12-31 10:25 | HHI.PR ---
Subjective Remarks Follow up for encephalopathy, hypoxemic respiratory failure, diabetes. The patient is nonverbal. She does smile when her name is said. Also squeezes right hand spontaneously. Discussed with RN, no acute events reported. Vitals reviewed and stable. Objective Vitals Vital Signs Date Time Temp Pulse Resp B/P (MAP) Pulse Ox O2 Delivery O2 Flow Rate FiO2 12/31/17 08:24 99 T-piece 28 12/31/17 08:00 98.6 82 16 133/76 (95) 100 12/31/17 07:00 T-Piece 5.00 28 12/31/17 04:00 98.8 90 16 143/79 (100) 99 12/31/17 00:00 99.2 90 16 144/75 (98) 99 12/30/17 20:00 99 T-Piece 5.00 28 12/30/17 19:45 99 T-piece 5.00 28 12/30/17 19:28 99.2 90 16 147/82 (103) 99 12/30/17 16:00 98.5 66 16 130/74 (92) 99 12/30/17 12:00 97.5 73 16 132/71 (91) 99 I/O 12/30/17 12/30/17 12/30/17 12/31/17 12/31/17 12/31/17 07:00 15:00 23:00 07:00 15:00 23:00 Intake Total 900 ml 980 ml 960 ml Output Total 3 ml 600 ml 200 ml Balance 897 ml 380 ml 760 ml Tube Feeding 450 ml 480 ml 460 ml Other 450 ml 500 ml 500 ml Output Urine Total 3 ml 600 ml 200 ml # Voids 2 # Bowel Movements 1 2 Result Diagram: 12/29/1725 12/29/1725 Imaging Last Impressions Chest X-Ray 12/23/17 0600 Signed Impressions: Service Date/Time: Saturday, December 23, 2017 04:28 - CONCLUSION: Consolidations and pleural effusions are unchanged. Tracheostomy tube in good position. Landon Graham MD Liver Ultrasound 12/22/17 0000 Signed Impressions: Service Date/Time: Friday, December 22, 2017 09:40 - CONCLUSION: 1. Liver demonstrates no acute finding. However, there is a small volume of free fluid in the abdomen in a perihepatic location. 2. Persistent but overall decreased gallbladder wall thickening. 3. Bilateral pleural effusions. Uziel Troy MD Hepatobiliary Scan Nuclear Medicine 12/18/17 0000 Signed Impressions: Service Date/Time: Monday, December 18, 2017 10:53 - CONCLUSION: 1. Normal uptake and excretion of radiotracer. Dimitri Bird MD ADDENDUM: The there is a air in the report under the medication sections it should read cholecystokinin was administered by slow infusion over 8 minutes beginning at the 60 minute jyoti. Dimitri Bird MD Abdomen/Pelvis CT 12/17/17 0000 Signed Impressions: Service Date/Time: Sunday, December 17, 2017 15:44 - CONCLUSION: 1. There is a trace amount of free air in the upper abdomen anterior to left lobe of the liver and adjacent to the stomach. While nonspecific, this could be related to the G-tube. Suggest correlating with the clinical examination for signs of acute abdomen which would indicate a more concerning cause. 2. Moderately distended ascending and transverse colon. However, no anatomic obstruction is visualized. 3. Signs of fluid overload including bilateral pleural effusions, anasarca, periportal edema, and small volume of free fluid in the abdomen and pelvis. Uziel Troy MD Upper Extremity Ultrasound 12/15/17 Signed Impressions: Service Date/Time: Friday, December 15, 2017 13:57 - CONCLUSION: Nonocclusive thrombus within left internal jugular vein. The remaining venous structures in the left upper extremity appear patent. Uziel Thomas MD Neck CTA 12/11/17 Signed Impressions: Service Date/Time: Monday, December 11, 2017 23:08 - CONCLUSION: No carotid stenosis. Ac Davis MD Head CTA 12/11/17 0000 Signed Impressions: Service Date/Time: Monday, December 11, 2017 23:08 - CONCLUSION: 1. No large vessel stenosis or aneurysm. Ac Davis MD Brain MRI 12/11/17 0000 Signed Impressions: Service Date/Time: Monday, December 11, 2017 11:12 - CONCLUSION: 1. Faint diffusion restriction predominately along the high right parietal convexity with minimal diffusion restriction on the left. Pattern is somewhat unusual for anoxia with the asymmetry. Possible embolic event. CTA of the cervical and intracranial vessels to be performed for further characterization. 2. Chronic changes with some periventricular small vessel ischemic demyelination. 3. Mild ventricular prominence. In the appropriate clinical setting, findings could represent normal pressure hydrocephalus. 4. Bilateral mastoiditis. Mild chronic sinus disease in the sphenoid bilaterally. Dani Titus MD Gall Bladder Ultrasound 12/03/17 0000 Signed Impressions: Service Date/Time: Sunday, December 03, 2017 07:59 - CONCLUSION: 1. Ascites and bilateral pleural effusions. 2. Mildly distended gallbladder without evidence of wall thickening or cholelithiasis. 3. Otherwise unremarkable exam. Boo Cartwright MD Lumbar Puncture Fluoroscopy 12/02/17 0000 Signed Impressions: Service Date/Time: Saturday, December 02, 2017 15:28 - CONCLUSION: Uncomplicated fluoroscopically guided lumbar puncture. Aly Leigh MD Renal Ultrasound 11/29/17 1656 Signed Impressions: Service Date/Time: Wednesday, November 29, 2017 13:16 - CONCLUSION: 1. Both kidneys are sonographically normal without hydronephrosis or nephrolithiasis. 2. Very abnormal appearance of the gallbladder with mural thickening and minimal pericholecystic fluid Dani Titus MD Head CT 11/28/17 0000 Signed Impressions: Service Date/Time: November 15:46 - CONCLUSION: 1. Ventriculomegaly suggesting central cerebral atrophy versus hydrocephalus. Clinical correlation is recommended. 2. No acute infarct, acute hemorrhage, midline shift or extra-axial fluid collections. Dev Christopher MD Objective Remarks GENERAL: Well-developed well-nourished middle aged female patient in NAD. Nonverbal. SKIN: Warm and dry. HEAD: Atraumatic. Normocephalic. EYES: Pupils equal and round. No scleral icterus. No injection or drainage. ENT: No nasal bleeding or discharge. Mucous membranes pink and moist. NECK: Trachea midline. No JVD. CARDIOVASCULAR: Regular rate and rhythm. RESPIRATORY: No accessory muscle use. Clear to auscultation. Breath sounds equal bilaterally. GASTROINTESTINAL: Abdomen soft, non-tender, nondistended. Hepatic and splenic margins not palpable. MUSCULOSKELETAL: Extremities without clubbing, cyanosis, or edema. Bilateral foot drop with BLE flexion . Left arm stiff, no spontaneous movement. Bilateral lower extremity flexion to tactile and noxious stimulus NEUROLOGICAL: Awake and alert. No obvious cranial nerve deficits. Motor grossly within normal limits. Five out of 5 muscle strength in the arms and legs. Normal speech. PSYCHIATRIC: Appropriate mood and affect; insight and judgment normal. Procedures 12/02- lumbar puncture Medications and IVs Current Medications Medications (Trade) Dose Ordered Sig/Kenna Route Start Time Stop Time Status Last Admin (NS Flush) 2 ml UNSCH PRN IV FLUSH 11/28/17 16:00 12/22/17 20:31 (NS Flush) 2 ml BID IV FLUSH 11/28/17 21:00 12/31/17 09:00 (Albuterol Neb) 2.5 mg Q2HR NEB PRN INH 11/28/17 16:00 12/13/17 02:48 (Dulcolax Supp) 10 mg DAILY PRN RECTAL 11/28/17 16:00 (Zofran Inj) 4 mg Q6H PRN IV PUSH 11/28/17 16:15 (Heparin Inj) 5,000 units Q8H SQ 11/28/17 18:00 Future hold 12/31/17 09:03 (Flonase Willem Spr) 1 spray BID EACH NARE 11/28/17 21:00 Future Hold (D50w (Vial) Inj) 50 ml UNSCH PRN IV PUSH 11/29/17 07:15 12/18/17 20:24 (Glucagon Inj) 1 mg UNSCH PRN OTHER 11/29/17 07:15 (Tylenol 650 Mg/ 20 ml Liq) 650 mg Q6H PRN NG 11/29/17 10:00 12/09/17 09:24 (NS Flush) DAILY IV FLUSH 11/30/17 09:00 12/31/17 09:00 (NS Flush) UNSCH PRN IV FLUSH 11/29/17 11:15 (Lipitor) 10 mg HS PO 11/29/17 21:00 Future Hold 12/12/17 22:13 (Cerebyx Inj) 200 mgpe Q12HR IV 11/30/17 21:00 Future Hold 12/18/17 21:24 (Duoneb Neb) 1 ampule Q2HR NEB PRN NEB 12/19/17 10:00 (Actigall) 300 mg Q12HR PO 12/21/17 21:00 12/31/17 09:00 (Coreg) 12.5 mg Q12HR PEG 12/29/17 10:00 12/31/17 09:02 (Aspirin Chew) 81 mg DAILY PEG 12/29/17 10:00 12/31/17 09:02 (Pepcid) 20 mg BID PEG 12/29/17 10:00 12/31/17 09:02 (Milk Of Magnesia Liq) 30 ml Q12H PRN PEG 12/29/17 09:30 (Senokot) 17.2 mg Q12H PRN PEG 12/29/17 09:30 (Lactulose Liq) 30 ml DAILY PRN PEG 12/29/17 09:30 (NovoLOG SUPPLEMENTAL SCALE) 1 Q6HR SQ 12/29/17 12:00 12/31/17 05:33 (Lacrilube Opht Oint) 1 applic Q6H PRN EACH EYE 12/29/17 10:30 (Free Water) 250 ml Q6H PEG 12/29/17 10:00 12/31/17 09:03 (Levemir Inj) 12 units Q12H SQ 12/30/17 12:00 12/31/17 00:46 Date of Insertion: Nov 28, 2017 Line: Central Venous Catheter Side: Left Location: Internal, Jugular A/P Problem List: (1) Macrocytic anemia ICD Code: D53.9 - Nutritional anemia, unspecified (2) Leukocytosis ICD Code: D72.829 - Elevated white blood cell count, unspecified Status: Resolved (3) Acute kidney injury ICD Code: N17.9 - Acute kidney failure, unspecified (4) Hyponatremia ICD Code: E87.1 - Hypo-osmolality and hyponatremia (5) Hypotension ICD Code: I95.9 - Hypotension, unspecified (6) DM type 1 (diabetes mellitus, type 1) ICD Code: E10.9 - DM type 1 (diabetes mellitus, type 1) Status: Acute (7) DKA (diabetic ketoacidoses) ICD Code: E13.10 - Other specified diabetes mellitus with ketoacidosis without coma Status: Resolved (8) Acute renal failure ICD Code: N17.9 - Acute kidney failure, unspecified Status: Acute (9) Hyperkalemia ICD Code: E87.5 - Hyperkalemia Status: Acute (10) Shock ICD Code: R57.9 - Shock, unspecified Status: Acute (11) Tobacco abuse ICD Code: Z72.0 - Tobacco abuse Status: Acute Assessment and Plan 62-year-old female with primary medical history of type 1 diabetes who initially came to the hospital with diabetic ketoacidosis. Patient went into respiratory failure and shock she got intubated. Required pressor support. She had seizure activity. Patient now hemodynamically stable but remains encephalopathic. She is now on the vent unit with tracheostomy and PEG tube placed. Encephalopathy Off sedation since 12/04 still not responsive. Extensive workup negative including LP/CSF workup and cortisol level; only pertinent positives are mild to moderate ventriculomegaly on MRI 11/29. Severe encephalopathy noted on 12/11 EEG. Repeat MRI on 12/11 showing ischemic changes high left parietal lobe. Neurology following. Appreciate recommendations. F/U EEG 12/16 without definite seizure activity noted. Phenytoin and phenobarbital is discontinued. Acetaminophen 650 mg by tube every 6 hours as needed fever No meaningful activities. Palliative care following for son to make medical decisions Patient is DNR. Son is requesting repeat imaging studies in 2 weeks to identify any worsening status or if patient remains the same without meaningful recovery. Son states that "she would not like this to be prolonged." Palliative Care will continue to follow. Elevated troponin Acute systolic heart failure ejection fraction 40% NSTEMI Cardiomyopathy Atorvastatin 10 mg by tube daily on hold for elevated LFT's Continue aspirin 12/03- Cardiology has signed off Acute hypoxemic respiratory failure Iatrogenic PTX status post chest tube placement Continue with oxygen/TP's as tolerated keep sats >92% S/p trach on 12/16 Albuterol/ipratropium aerosols Pulmonary toilet, trach care Status post bronchoscopy 11/29. Moderate protein energy malnutrition Elevated LFT's s/p PEG tube placement 12/16. On tube feeds- Glucerna 1.5 @ 40 mL/h. 12/18 HIDA scan: unremarkable 12/17 CT abdomen/pelvis from today showed trace amount of free air in the upper abdomen anterior to left lobe of the liver and adjacent to the stomach. this could be related to the G-tube. Moderately distended ascending and transverse colon. No obstruction. Docusate sodium/senna 1 tablet twice daily for bowel regimen 12/12 US Liver: Marked gallbladder wall thickening with minimal pericholecystic fluid. No stones or sludge. Small bilateral pleural effusions. 12/03 gallbladder ultrasound -gallbladder mildly distended without evidence of wall thickening or cholelithiasis. There is ascites and pleural effusions. GI eval noted. Continue multivitamin/thiamine. Insulin-dependent diabetes mellitus type 1 uncontrolled Continue SSI NovoLog medium protocol with accucheck every 6hours. Increase to Levemir 12 units q 12. Monitor for hypoglycemia DVT SCD/continue heparin SQ Doppler US UE: Non-occlusive thrombus left IJ vein Discharge Planning Palliative care following. SonJamin is the decision-maker. Requesting for repeat studies in 2 weeks to be able to assess whether to withdraw care or not Problem Qualifiers (1) Leukocytosis: Qualified Codes: D72.829 - Elevated white blood cell count, unspecified (2) Hypotension: Qualified Codes: I95.9 - Hypotension, unspecified (3) DM type 1 (diabetes mellitus, type 1): Qualified Codes: E10.69 - Type 1 diabetes mellitus with other specified complication; E10.65 - Type 1 diabetes mellitus with hyperglycemia (4) DKA (diabetic ketoacidoses): Qualified Codes: E10.11 - Type 1 diabetes mellitus with ketoacidosis with coma (5) Acute renal failure: Qualified Codes: N17.9 - Acute kidney failure, unspecified Dedra Elizalde PA-C December 31, 2017 10:25 am
[2018-01-01] VITALS (7 sets, daily range): BP systolic 125–167; BP diastolic 74–89; PULSE 73–103; RESP 16; TEMP 98.7–99.5; O2SAT 94–99
[2018-01-01] MEDS: HEPARIN SODIUM - SQ 10,000 UNITS/ML VIAL SQ SCH ×3 (01:37→18:13)
[2018-01-01] MEDS: [UNRECOGNIZED DRUG - REMARK] PEG SCH ×4 (04:00→22:00)
[2018-01-01] MEDS: INSULIN ASPART SUPPLEMENTAL SCALE SQ SCH ×3 (06:20→18:00)
[2018-01-01] MEDS: SODIUM CHLORIDE 0.9% FLUSH 10 ML FLUSH IV FLUSH SCH ×3 (09:00→20:30)
[2018-01-01] MEDS: FAMOTIDINE 20 MG TAB PEG SCH ×2 (09:26→20:29)
[2018-01-01] MEDS: URSODIOL 300 MG CAP PO SCH ×2 (09:26→20:29)
[2018-01-01] MEDS: CARVEDILOL 12.5 MG TAB PEG SCH ×2 (09:26→20:30)
[2018-01-01] MEDS: ASPIRIN 81 MG CHEW TAB PEG SCH (09:26)
--- NOTE | 2018-01-01 11:50 | HHI.PR ---
Subjective Remarks No acute changes overnight. Patient does not appear to be in pain and is resting comfortably. She is nonverbal and unable to participate in history. Objective Vital Signs Date Time Temp Pulse Resp B/P (MAP) Pulse Ox O2 Delivery O2 Flow Rate FiO2 01/01/18 08:00 98.9 88 16 147/75 (99) 96 01/01/18 07:00 97 T-Piece 5.00 28 01/01/18 04:00 99.0 73 16 143/74 (97) 99 01/01/18 00:20 94 T-piece 5.00 28 12/31/17 23:59 96.9 83 16 138/77 (97) 95 12/31/17 20:00 98 T-Piece 5.00 28 12/31/17 19:23 97.1 89 16 155/78 (103) 99 12/31/17 17:18 99 T-piece 6.00 28 12/31/17 16:00 98.4 73 16 132/74 (93) 99 12/31/17 12:00 98.5 92 16 155/89 (111) 99 I/O 12/31/17 12/31/17 12/31/17 01/01/18 01/01/18 01/01/18 07:00 15:00 23:00 07:00 15:00 23:00 Intake Total 960 ml 960 ml 980 ml Output Total 200 ml 200 ml 1000 ml Balance 760 ml 760 ml -20 ml Tube Feeding 460 ml 460 ml 480 ml Other 500 ml 500 ml 500 ml Output Urine Total 200 ml 200 ml 1000 ml # Voids 2 2 # Bowel Movements 2 1 0 Result Diagram: 12/29/1792412/29/17924 Objective Remarks GENERAL: NAD, A&Ox0 HEAD: Normocephalic. NECK: Supple, trachea midline. No lymphadenopathy. EYES: No scleral icterus. No injection or drainage. CARDIOVASCULAR: Regular rate and rhythm without murmurs, gallops, or rubs. RESPIRATORY: Breath sounds equal bilaterally. No accessory muscle use. GASTROINTESTINAL: Abdomen soft, non-tender, nondistended. MUSCULOSKELETAL: No cyanosis, or edema. SKIN: Warm and dry. NEURO: No focal neurological deficitis. A/P Assessment and Plan 62-year-old female with long-term tracheostomy and PEG tube secondary to encephalopathy. Etiology for encephalopathy is related to diabetic ketoacidosis related to type 1 diabetes. Respiratory failure and shock are present at admit. Encephalopathy Unimproved Likely long-term Continue monitoring neurological status Palliative care following Elevated troponin Chronic systolic heart failure NSTEMI Cardiomyopathy Continue atorvastatin Continue aspirin Most recent ejection fraction 40% Acute hypoxemic respiratory failure Tracheostomy continue oxygenation as needed Continue pulmonary toilet Continue tracheostomy care Moderate protein energy malnutrition Elevated LFT's Continue PEG tube feeds Diabetes mellitus type 1 Follow blood sugars Insulin sliding scale Diabetic diet Continue Levemir DVT prophylaxis SCD heparin SQ Discharge Planning Palliative care following. Armando is considering withdrawal of care in 2 weeks if no improvement is seen, and based on pending repeat imaging. Jamin Roberts is the decision-maker. Dimitri Peck MD January 01, 2018 11:50
[2018-01-01] MEDS: INSULIN DETEMIR 100 UNITS/ML VIAL SQ SCH (12:25)
[2018-01-02] VITALS (7 sets, daily range): BP systolic 128–149; BP diastolic 68–84; PULSE 68–93; RESP 16; TEMP 98.2–99; O2SAT 97–99
[2018-01-02] MEDS: HEPARIN SODIUM - SQ 10,000 UNITS/ML VIAL SQ SCH ×3 (03:21→18:39)
[2018-01-02] MEDS: [UNRECOGNIZED DRUG - REMARK] PEG SCH ×4 (03:21→21:38)
[2018-01-02] MEDS: INSULIN ASPART SUPPLEMENTAL SCALE SQ SCH ×4 (06:00→18:00)
[2018-01-02] MEDS: URSODIOL 300 MG CAP PO SCH ×2 (07:47→21:38)
[2018-01-02] MEDS: SODIUM CHLORIDE 0.9% FLUSH 10 ML FLUSH IV FLUSH SCH ×3 (07:48→21:39)
[2018-01-02] MEDS: CARVEDILOL 12.5 MG TAB PEG SCH ×2 (07:48→21:37)
[2018-01-02] MEDS: FAMOTIDINE 20 MG TAB PEG SCH ×2 (07:48→21:38)
[2018-01-02] MEDS: ASPIRIN 81 MG CHEW TAB PEG SCH (07:48)
--- NOTE | 2018-01-02 09:47 | HHI.PR ---
Subjective Remarks No respiratory distress or GI symptoms. No signs of pain. 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 Objective Vital Signs Date Time Temp Pulse Resp B/P (MAP) Pulse Ox O2 Delivery O2 Flow Rate FiO2 01/02/18 08:22 99 T-piece 5.00 28 01/02/18 04:00 98.8 93 16 149/82 (104) 99 01/02/18 00:00 99.0 84 16 144/78 (100) 97 01/01/18 20:00 99.5 93 16 167/83 (111) 98 01/01/18 20:00 98 T-Piece 5.00 28 01/01/18 16:00 98.9 103 16 125/75 (92) 97 01/01/18 14:16 95 T-piece 5.00 28 01/01/18 12:00 98.7 82 16 155/89 (111) 99 I/O 01/01/18 01/01/18 01/01/18 01/02/18 01/02/18 01/02/18 07:00 15:00 23:00 07:00 15:00 23:00 Intake Total 980 ml 947 ml 995 ml Output Total 1000 ml 500 ml 400 ml Balance -20 ml 447 ml 595 ml Tube Feeding 480 ml 447 ml 395 ml Other 500 ml 500 ml 600 ml Output Urine Total 1000 ml 500 ml 400 ml # Voids 3 # Bowel Movements 0 0 1 Result Diagram: 12/29/1792412/29/17924 Objective Remarks GENERAL: NAD, A&Ox0 HEAD: Normocephalic. NECK: Supple, trachea midline. No lymphadenopathy. EYES: No scleral icterus. No injection or drainage. CARDIOVASCULAR: Regular rate and rhythm without murmurs, gallops, or rubs. RESPIRATORY: Breath sounds equal bilaterally. No accessory muscle use. GASTROINTESTINAL: Abdomen soft, non-tender, nondistended. MUSCULOSKELETAL: No cyanosis, or edema. SKIN: Warm and dry. NEURO: No focal neurological deficitis. A/P Problem List: (1) Encephalopathy, metabolic ICD Code: G93.41 - Metabolic encephalopathy Status: Acute (2) Encephalopathy ICD Code: G93.40 - Encephalopathy, unspecified (3) Type 1 diabetes ICD Code: E10.9 - Type 1 diabetes mellitus without complications Status: Acute Assessment and Plan 62-year-old female with long-term tracheostomy and PEG tube secondary to encephalopathy. Etiology for encephalopathy is related to diabetic ketoacidosis related to type 1 diabetes. Respiratory failure and shock are present at admit. No acute changes overnight. Continue to monitor patient clinically. Encephalopathy Unimproved Likely long-term Continue monitoring neurological status Palliative care following Elevated troponin Chronic systolic heart failure NSTEMI Cardiomyopathy Continue atorvastatin Continue aspirin Most recent ejection fraction 40% Acute hypoxemic respiratory failure Tracheostomy continue oxygenation as needed Continue pulmonary toilet Continue tracheostomy care Moderate protein energy malnutrition Elevated LFT's Continue PEG tube feeds Diabetes mellitus type 1 Follow blood sugars Insulin sliding scale Diabetic diet Continue Levemir DVT prophylaxis SCD heparin SQ Discharge Planning Palliative care following. Son is considering withdrawal of care in 2 weeks if no improvement is seen, and based on pending repeat imaging. Jamin Roberts is the decision-maker. Dimitri Peck MD January 02, 2018 09:47
[2018-01-02] MEDS: INSULIN DETEMIR 100 UNITS/ML VIAL SQ SCH ×2 (12:00)
[2018-01-03] VITALS (8 sets, daily range): BP systolic 118–142; BP diastolic 62–84; PULSE 67–85; RESP 16–20; TEMP 98–99.3; O2SAT 97–99
[2018-01-03] MEDS: HEPARIN SODIUM - SQ 10,000 UNITS/ML VIAL SQ SCH ×3 (01:39→17:37)
[2018-01-03] MEDS: [UNRECOGNIZED DRUG - REMARK] PEG SCH ×4 (04:00→20:51)
[2018-01-03] MEDS: INSULIN ASPART SUPPLEMENTAL SCALE SQ SCH ×4 (06:00→18:00)
[2018-01-03] MEDS: URSODIOL 300 MG CAP PO SCH ×2 (09:00→20:51)
[2018-01-03] MEDS: SODIUM CHLORIDE 0.9% FLUSH 10 ML FLUSH IV FLUSH SCH ×3 (09:00→20:51)
[2018-01-03] MEDS: CARVEDILOL 12.5 MG TAB PEG SCH ×2 (10:37→20:51)
[2018-01-03] MEDS: FAMOTIDINE 20 MG TAB PEG SCH ×2 (10:37→20:51)
[2018-01-03] MEDS: ASPIRIN 81 MG CHEW TAB PEG SCH (10:38)
--- NOTE | 2018-01-03 10:40 | HHI.PR ---
Subjective Remarks No respiratory distress or GI symptoms. No signs of pain. 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 Objective Vital Signs Date Time Temp Pulse Resp B/P (MAP) Pulse Ox O2 Delivery O2 Flow Rate FiO2 01/03/18 08:05 99 T-piece 5.00 28 01/03/18 08:00 98.7 69 20 126/66 (86) 99 01/03/18 07:00 99 T-Piece 28 01/03/18 04:11 98.1 79 16 134/71 (92) 97 01/03/18 00:26 98.4 69 16 118/78 (91) 97 01/02/18 20:44 99 T-piece 5.00 28 01/02/18 20:00 97 T-Piece 5.00 28 01/02/18 19:16 98.8 77 16 142/84 (103) 99 01/02/18 12:00 98.6 68 16 133/74 (93) 99 I/O 01/02/18 01/02/18 01/02/18 01/03/18 01/03/18 01/03/18 07:00 15:00 23:00 07:00 15:00 23:00 Intake Total 995 ml 980 ml 1042 ml Output Total 400 ml 550 ml Balance 595 ml 430 ml 1042 ml Tube Feeding 395 ml 480 ml 492 ml Other 600 ml 500 ml 550 ml Output Urine Total 400 ml 550 ml # Voids 3 # Bowel Movements 1 3 2 Objective Remarks GENERAL: NAD, A&Ox0 HEAD: Normocephalic. NECK: Supple, trachea midline. No lymphadenopathy. EYES: No scleral icterus. No injection or drainage. CARDIOVASCULAR: Regular rate and rhythm without murmurs, gallops, or rubs. RESPIRATORY: Breath sounds equal bilaterally. No accessory muscle use. GASTROINTESTINAL: Abdomen soft, non-tender, nondistended. MUSCULOSKELETAL: No cyanosis, or edema. SKIN: Warm and dry. NEURO: No focal neurological deficitis. A/P Problem List: (1) Encephalopathy, metabolic ICD Code: G93.41 - Metabolic encephalopathy Status: Acute (2) Encephalopathy ICD Code: G93.40 - Encephalopathy, unspecified (3) Type 1 diabetes ICD Code: E10.9 - Type 1 diabetes mellitus without complications Status: Acute Assessment and Plan 62-year-old female with long-term tracheostomy and PEG tube secondary to encephalopathy. Etiology for encephalopathy is related to diabetic ketoacidosis related to type 1 diabetes. Respiratory failure and shock are present at admit. Patient appears stable today. No acute changes overnight. Continue to monitor patient clinically. Encephalopathy Unimproved Likely long-term Continue monitoring neurological status Palliative care following Elevated troponin Chronic systolic heart failure NSTEMI Cardiomyopathy Continue atorvastatin Continue aspirin Most recent ejection fraction 40% Acute hypoxemic respiratory failure Tracheostomy continue oxygenation as needed Continue pulmonary toilet Continue tracheostomy care Moderate protein energy malnutrition Elevated LFT's Continue PEG tube feeds Diabetes mellitus type 1 Follow blood sugars Insulin sliding scale Diabetic diet Continue Levemir DVT prophylaxis SCD heparin SQ Discharge Planning Palliative care following. Armando is considering withdrawal of care in 2 weeks if no improvement is seen, and based on pending repeat imaging. Armando Jamin is the decision-maker. Dimitri Peck MD January 03, 2018 10:40
[2018-01-03] MEDS: INSULIN DETEMIR 100 UNITS/ML VIAL SQ SCH ×2 (14:05)
[2018-01-04] VITALS (7 sets, daily range): BP systolic 112–142; BP diastolic 65–82; PULSE 76–95; RESP 16–18; TEMP 98.4–99.4; O2SAT 94–99
[2018-01-04] MEDS: INSULIN DETEMIR 100 UNITS/ML VIAL SQ SCH ×3 (00:48→23:41)
[2018-01-04] MEDS: HEPARIN SODIUM - SQ 10,000 UNITS/ML VIAL SQ SCH ×3 (02:39→17:10)
[2018-01-04] MEDS: [UNRECOGNIZED DRUG - REMARK] PEG SCH ×4 (04:00→20:38)
[2018-01-04] MEDS: INSULIN ASPART SUPPLEMENTAL SCALE SQ SCH ×5 (06:25→23:42)
[2018-01-04] MEDS: FAMOTIDINE 20 MG TAB PEG SCH ×2 (08:53→20:38)
[2018-01-04] MEDS: ASPIRIN 81 MG CHEW TAB PEG SCH (08:53)
[2018-01-04] MEDS: URSODIOL 300 MG CAP PO SCH ×2 (08:53→20:38)
[2018-01-04] MEDS: CARVEDILOL 12.5 MG TAB PEG SCH ×2 (08:53→20:38)
[2018-01-04] MEDS: SODIUM CHLORIDE 0.9% FLUSH 10 ML FLUSH IV FLUSH SCH ×3 (08:54→20:38)
--- NOTE | 2018-01-04 16:21 | HHI.PR ---
Subjective Remarks Seen in her bedroom, discussed with nurse Miss Bueno, patient non verbal. Objective Vital Signs Date Time Temp Pulse Resp B/P (MAP) Pulse Ox O2 Delivery O2 Flow Rate FiO2 01/04/18 12:00 98.5 81 16 135/82 (99) 98 01/04/18 08:00 98.7 79 16 112/65 (81) 94 01/04/18 07:00 T-Piece 28 01/04/18 04:00 99.4 95 18 142/77 (98) 94 01/04/18 00:00 98.9 80 18 142/78 (99) 98 01/03/18 21:20 98 T-piece 5.00 28 01/03/18 20:00 99.3 85 18 136/75 (95) 99 01/03/18 19:00 99 T-Piece 28 I/O 01/03/18 01/03/18 01/03/18 01/04/18 01/04/18 01/04/18 07:00 15:00 23:00 07:00 15:00 23:00 Intake Total 1042 ml 950 ml 1023 ml Output Total 300 ml 700 ml Balance 1042 ml 650 ml 323 ml Tube Feeding 492 ml 450 ml 523 ml Other 550 ml 500 ml 500 ml Output Urine Total 300 ml 700 ml # Voids 3 2 # Bowel Movements 2 3 1 Imaging Last Impressions Chest X-Ray 12/23/17 0600 Signed Impressions: Service Date/Time: Saturday, December 23, 2017 04:28 - CONCLUSION: Consolidations and pleural effusions are unchanged. Tracheostomy tube in good position. Landon Graham MD Liver Ultrasound 12/22/17 0000 Signed Impressions: Service Date/Time: Friday, December 22, 2017 09:40 - CONCLUSION: 1. Liver demonstrates no acute finding. However, there is a small volume of free fluid in the abdomen in a perihepatic location. 2. Persistent but overall decreased gallbladder wall thickening. 3. Bilateral pleural effusions. Uziel Troy MD Hepatobiliary Scan Nuclear Medicine 12/18/17 0000 Signed Impressions: Service Date/Time: Monday, December 18, 2017 10:53 - CONCLUSION: 1. Normal uptake and excretion of radiotracer. Dimitri Bird MD ADDENDUM: The there is a air in the report under the medication sections it should read cholecystokinin was administered by slow infusion over 8 minutes beginning at the 60 minute jyoti. Dimitri Bird MD Abdomen/Pelvis CT 12/17/17 Signed Impressions: Service Date/Time: Sunday, December 17, 2017 15:44 - CONCLUSION: 1. There is a trace amount of free air in the upper abdomen anterior to left lobe of the liver and adjacent to the stomach. While nonspecific, this could be related to the G-tube. Suggest correlating with the clinical examination for signs of acute abdomen which would indicate a more concerning cause. 2. Moderately distended ascending and transverse colon. However, no anatomic obstruction is visualized. 3. Signs of fluid overload including bilateral pleural effusions, anasarca, periportal edema, and small volume of free fluid in the abdomen and pelvis. Uziel Troy MD Upper Extremity Ultrasound 12/15/17 Signed Impressions: Service Date/Time: Friday, December 15, 2017 13:57 - CONCLUSION: Nonocclusive thrombus within left internal jugular vein. The remaining venous structures in the left upper extremity appear patent. Uziel Thomas MD Neck CTA 12/11/17 Signed Impressions: Service Date/Time: Monday, December 11, 2017 23:08 - CONCLUSION: No carotid stenosis. Ac Davis MD Head CTA 12/11/17 Signed Impressions: Service Date/Time: Monday, December 11, 2017 23:08 - CONCLUSION: 1. No large vessel stenosis or aneurysm. Ac Davis MD Brain MRI 12/11/17 Signed Impressions: Service Date/Time: Monday, December 11, 2017 11:12 - CONCLUSION: 1. Faint diffusion restriction predominately along the high right parietal convexity with minimal diffusion restriction on the left. Pattern is somewhat unusual for anoxia with the asymmetry. Possible embolic event. CTA of the cervical and intracranial vessels to be performed for further characterization. 2. Chronic changes with some periventricular small vessel ischemic demyelination. 3. Mild ventricular prominence. In the appropriate clinical setting, findings could represent normal pressure hydrocephalus. 4. Bilateral mastoiditis. Mild chronic sinus disease in the sphenoid bilaterally. Dani Titus MD Gall Bladder Ultrasound 12/03/17 0000 Signed Impressions: Service Date/Time: Sunday, December 03, 2017 07:59 - CONCLUSION: 1. Ascites and bilateral pleural effusions. 2. Mildly distended gallbladder without evidence of wall thickening or cholelithiasis. 3. Otherwise unremarkable exam. Boo Cartwright MD Lumbar Puncture Fluoroscopy 12/02/17 0000 Signed Impressions: Service Date/Time: Saturday, December 02, 2017 15:28 - CONCLUSION: Uncomplicated fluoroscopically guided lumbar puncture. Aly Leigh MD Renal Ultrasound 11/29/17 1656 Signed Impressions: Service Date/Time: Wednesday, November 29, 2017 13:16 - CONCLUSION: 1. Both kidneys are sonographically normal without hydronephrosis or nephrolithiasis. 2. Very abnormal appearance of the gallbladder with mural thickening and minimal pericholecystic fluid Dani Titus MD Head CT 11/28/17 0000 Signed Impressions: Service Date/Time: November 15:46 - CONCLUSION: 1. Ventriculomegaly suggesting central cerebral atrophy versus hydrocephalus. Clinical correlation is recommended. 2. No acute infarct, acute hemorrhage, midline shift or extra-axial fluid collections. Dev Christopher MD Procedures PEG tube placement Other Results Laboratory Tests Test 11/28/17 14:42 11/28/17 15:07 11/28/17 15:28 11/28/17 16:45 Blood Gas Liter Flow 4 L/M Urine Random Creatinine 25.6 MG/DL Urine Random Sodium 48 MEQ/L Total Creatine Kinase 82 U/L Amylase Level 13 U/L Lipase 63 U/L Salicylates Level 4.1 MG/DL Urine Opiates Screen NEG Urine Barbiturates Screen NEG Urine Amphetamines Screen NEG Urine Benzodiazepines Screen NEG Urine Cocaine Screen NEG Urine Cannabinoids Screen NEG Ethyl Alcohol Level LESS THAN 3 MG/DL Urine Collection Type CATH Urine Color YELLOW Urine Turbidity CLEAR Urine pH 5.0 Urine Specific Brandon 1.020 Urine Protein NEG mg/dL Urine Glucose (UA) 1000 OR GREATER mg/dL Urine Ketones 80 OR GREATER mg/dL Urine Occult Blood TRACE Urine Nitrite NEG Urine Bilirubin NEG Urine Urobilinogen 0.2 MG/DL Urine Leukocyte Esterase NEG Urine RBC 0-3 /hpf Urine Squamous Epithelial Cells 0-5 /hpf Microscopic Urinalysis Comment CULT NOT INDICATED Urine Eosinophils NONE SEEN /HPF Urine Collection Time 15:28 Venous Blood pH 7.04 Venous Blood Partial Pressure CO2 19 mmHg Venous Blood Partial Pressure O2 56 mmHg Venous Blood HCO3 5 mmol/L Venous Blood Oxygen Saturation 76 % Venous Blood Oxygen Content 12.0 Vol % Venous Blood Base Excess -23.9 mmol/L Test 11/28/17 18:55 11/29/17 07:05 11/29/17 10:30 11/29/17 17:00 Thyroid Stimulating Hormone 3rd Gen 0.383 uIU/ML Acetaminophen Level 4.9 MCG/ML Nasal Screen MRSA (PCR) MRSA NOT DETECTED Bronchoalveolar Lavage WBC 58 /MM3 Bronchoalveolar Lavage RBC 1616 /MM3 Bronchoalveolar Lavage Neutrophils 82 % Bronchoalveolar Lavage Lymphocytes 17 % Bronchoalveolar Lavage Histiocytes 1 % Lavage Fluid Total Volume 14.0 ML Lavage Fluid Total WBC Count 0.800 MILLION B-Hydroxybutyrate 0.23 MMOL/L Test 11/30/17 04:55 12/01/17 05:17 12/02/17 04:10 12/02/17 15:29 Hemoglobin A1c 7.9 % Troponin I 2.80 NG/ML Triglycerides Level 50 MG/DL Cholesterol Level 95 MG/DL LDL Cholesterol 10 MG/DL HDL Cholesterol 75.3 MG/DL Cholesterol/HDL Ratio 1.26 RATIO Lactic Acid Level 1.9 mmol/L Differential Total Cells Counted 100 Neutrophils % (Manual) 78 % Band Neutrophils % 5 % Lymphocytes % 13 % Monocytes % 3 % Eosinophils % 1 % Neutrophils # (Manual) 12.0 TH/MM3 Platelet Estimate LOW Platelet Morphology Comment NORMAL Red Cell Morphology Comment NORMAL Activated Partial Thromboplast Time 27.7 SEC CSF Volume (Tube 1) 2.5 ML CSF Supernatant Color (tube 1) CLEAR CSF Gross Blood (Tube 1) 0 CSF Volume (Tube 2) 2.8 ML CSF Supernatant Color (tube 2) CLEAR CSF Gross Blood (Tube 2) 0 CSF Volume (Tube 3) 3.0 ML CSF Supernatant Color (tube 3) CLEAR CSF Gross Blood (Tube 3) 0 CSF Volume (Tube 4) 2.5 ML CSF Supernatant Color (tube 4) CLEAR CSF Gross Blood (Tube 4) 0 CSF WBC (Tube 4) 6 /MM3 CSF RBC (Tube 4) 28 /MM3 CSF Neutrophils 2 % CSF Lymphocytes 96 % CSF Monocytes 2 % CSF Glucose 124 MG/DL CSF Total Protein 32.1 MG/DL CSF Myelin Basic Protein LESS THAN 2.0 mcg/L CSF Angiotensin Converting Enzyme LESS THAN 5 U/L CSF VDRL NON-REACTIVE CSF Cryptococcus Antigen NOT DETECTED CSF Cryptococcus Antigen Confirm Herpes Simplex Virus I DNA (PCR) Negative Herpes Simplex Virus II DNA (PCR) Negative Test 12/03/17 08:30 12/04/17 04:55 12/06/17 08:30 12/08/17 11:50 Random Cortisol 17.5 MCG/DL Protein Corrected Calcium 8.5 MG/DL Ammonia 22 MCMOL/L Vancomycin Level Trough 9.4 MCG/ML Stool C. difficile Toxin (PCR) NEGATIVE Stl C. difficile Toxin Epiderm 027 PRESUMPTIVE NEGATIVE Test 12/09/17 04:20 12/13/17 07:55 12/16/17 06:34 12/17/17 05:22 Phenobarbital Level 24.1 MCG/ML Blood Gas Puncture Site RT RADIAL Blood Gas Patient Temperature 37.0 Blood Gas HCO3 27 mmol/L Blood Gas Base Excess 3.5 mmol/L Blood Gas Oxygen Saturation 97 % Arterial Blood pH 7.46 Arterial Blood Partial Pressure CO2 38 mmHg Arterial Blood Partial Pressure O2 139 mmHg Arterial Blood Oxygen Content 17.5 Vol % Arterial Blood Carboxyhemoglobin 1.1 % Arterial Blood Methemoglobin 1.1 % Blood Gas Hemoglobin 12.7 G/DL Oxygen Delivery Device VENTILATOR Blood Gas Ventilator Setting 12/450/PEEP 5 Blood Gas Inspired Oxygen 40 % Blood Urea Nitrogen 17 MG/DL Creatinine 0.61 MG/DL Random Glucose 246 MG/DL Total Protein 6.3 GM/DL Albumin 2.1 GM/DL Calcium Level 8.5 MG/DL Alkaline Phosphatase 1195 U/L Aspartate Amino Transf (AST/SGOT) 200 U/L Alanine Aminotransferase (ALT/SGPT) 243 U/L Total Bilirubin 0.3 MG/DL Direct Bilirubin 0.1 MG/DL Sodium Level 135 MEQ/L Potassium Level 4.6 MEQ/L Chloride Level 99 MEQ/L Carbon Dioxide Level 27.1 MEQ/L Indirect Bilirubin 0.2 MG/DL Prothrombin Time 10.5 SEC Prothromb Time International Ratio 1.0 RATIO Test 12/18/17 06:42 12/19/17 06:34 12/19/17 08:27 12/22/17 05:13 Iron Level 23 MCG/DL Total Iron Binding Capacity 241 MCG/DL Percent Iron Saturation 9.6 % Total Alkaline Phosphatase 1264 U/L Alkaline Phosphatase Iso-Intestine 0 % Alkaline Phosphatase Iso-Bone 40 % Alkaline Phosphatase Iso-Liver 60 % Alkaline Phosph Iso-Macro Hepatic % Alkaline Phos Isoenzymes Interpret Phenytoin (Dilantin) Level 13.1 MCG/ML Anti-Nuclear Antibody Screen NEG Anti-Smooth Muscle Antibody Negative Hepatitis A IgM Antibody NONREACTIVE Hepatitis B Surface Antigen NONREACTIVE Hepatitis B Core IgM Antibody NONREACTIVE Hepatitis C IgG Antibody NONREACTIVE Immunoglobulin A 207 mg/dL Mitochondria M2 Antibody LESS THAN 20.0 U Endomysial Antibody Titer Endomysial IgA Antibody Tissue Transglutaminase IgG Ab U/mL Tissue Transglutaminase IgA Ab LESS THAN 1 U/mL Celiac Disease Interpretation Test 12/23/17 06:01 12/29/17 09:25 Blood Urea Nitrogen 11 MG/DL 18 MG/DL Creatinine 0.50 MG/DL 0.51 MG/DL Random Glucose 150 MG/DL 234 MG/DL Total Protein 6.2 GM/DL 6.8 GM/DL Albumin 2.2 GM/DL 2.8 GM/DL Calcium Level 8.7 MG/DL 8.9 MG/DL Phosphorus Level 3.6 MG/DL Magnesium Level 2.0 MG/DL Alkaline Phosphatase 1062 U/L 555 U/L Aspartate Amino Transf (AST/SGOT) 56 U/L 28 U/L Alanine Aminotransferase (ALT/SGPT) 120 U/L 42 U/L Total Bilirubin 0.2 MG/DL 0.3 MG/DL Sodium Level 137 MEQ/L 135 MEQ/L Potassium Level 4.4 MEQ/L 4.3 MEQ/L Chloride Level 99 MEQ/L 99 MEQ/L Carbon Dioxide Level 28.9 MEQ/L 28.5 MEQ/L White Blood Count 9.9 TH/MM3 Red Blood Count 3.49 MIL/MM3 Hemoglobin 11.3 GM/DL Hematocrit 33.6 % Mean Corpuscular Volume 96.3 FL Mean Corpuscular Hemoglobin 32.3 PG Mean Corpuscular Hemoglobin Concent 33.6 % Red Cell Distribution Width 14.1 % Platelet Count 415 TH/MM3 Mean Platelet Volume 8.7 FL Neutrophils (%) (Auto) 71.1 % Lymphocytes (%) (Auto) 15.6 % Monocytes (%) (Auto) 10.6 % Eosinophils (%) (Auto) 1.9 % Basophils (%) (Auto) 0.8 % Neutrophils # (Auto) 7.1 TH/MM3 Lymphocytes # (Auto) 1.6 TH/MM3 Monocytes # (Auto) 1.1 TH/MM3 Eosinophils # (Auto) 0.2 TH/MM3 Basophils # (Auto) 0.1 TH/MM3 CBC Comment DIFF FINAL Differential Comment Anion Gap 8 MEQ/L Estimat Glomerular Filtration Rate 121 ML/MIN Objective Remarks GENERAL: NAD, A&Ox0 HEAD: Normocephalic. NECK: Supple, trachea midline. No lymphadenopathy. EYES: No scleral icterus. No injection or drainage. CARDIOVASCULAR: Regular rate and rhythm without murmurs, gallops, or rubs. RESPIRATORY: Breath sounds equal bilaterally. No accessory muscle use. GASTROINTESTINAL: Abdomen soft, non-tender, nondistended. MUSCULOSKELETAL: No cyanosis, or edema. SKIN: Warm and dry. NEURO: No focal neurological deficits Medications and IVs Current Medications Medications (Trade) Dose Ordered Sig/Kenna Route Start Time Stop Time Status Last Admin (NS Flush) 2 ml UNSCH PRN IV FLUSH 11/28/17 16:00 12/22/17 20:31 (NS Flush) 2 ml BID IV FLUSH 11/28/17 21:00 01/04/18 08:54 (Albuterol Neb) 2.5 mg Q2HR NEB PRN INH 11/28/17 16:00 12/13/17 02:48 (Dulcolax Supp) 10 mg DAILY PRN RECTAL 11/28/17 16:00 (Zofran Inj) 4 mg Q6H PRN IV PUSH 11/28/17 16:15 (Heparin Inj) 5,000 units Q8H SQ 11/28/17 18:00 Future hold 01/04/18 08:54 (Flonase Willem Spr) 1 spray BID EACH NARE 11/28/17 21:00 Future Hold (D50w (Vial) Inj) 50 ml UNSCH PRN IV PUSH 11/29/17 07:15 12/18/17 20:24 (Glucagon Inj) 1 mg UNSCH PRN OTHER 11/29/17 07:15 (Tylenol 650 Mg/ 20 ml Liq) 650 mg Q6H PRN NG 11/29/17 10:00 12/09/17 09:24 (NS Flush) DAILY IV FLUSH 11/30/17 09:00 01/04/18 09:00 (NS Flush) UNSCH PRN IV FLUSH 11/29/17 11:15 (Lipitor) 10 mg HS PO 11/29/17 21:00 Future Hold 12/12/17 22:13 (Cerebyx Inj) 200 mgpe Q12HR IV 11/30/17 21:00 Future Hold 12/18/17 21:24 (Duoneb Neb) 1 ampule Q2HR NEB PRN NEB 12/19/17 10:00 (Actigall) 300 mg Q12HR PO 12/21/17 21:00 01/04/18 08:53 (Coreg) 12.5 mg Q12HR PEG 12/29/17 10:00 01/04/18 08:53 (Aspirin Chew) 81 mg DAILY PEG 12/29/17 10:00 01/04/18 08:53 (Pepcid) 20 mg BID PEG 12/29/17 10:00 01/04/18 08:53 (Milk Of Magnesia Liq) 30 ml Q12H PRN PEG 12/29/17 09:30 (Senokot) 17.2 mg Q12H PRN PEG 12/29/17 09:30 (Lactulose Liq) 30 ml DAILY PRN PEG 12/29/17 09:30 (NovoLOG SUPPLEMENTAL SCALE) 1 Q6HR SQ 12/29/17 12:00 01/04/18 12:00 (Lacrilube Opht Oint) 1 applic Q6H PRN EACH EYE 12/29/17 10:30 (Free Water) 250 ml Q6H PEG 12/29/17 10:00 01/04/18 08:55 (Levemir Inj) 12 units Q12H SQ 12/30/17 12:00 01/04/18 12:00 A/P Assessment and Plan (1) Encephalopathy, metabolic ICD Code: G93.41 - Metabolic encephalopathy Status: Acute (2) Encephalopathy ICD Code: G93.40 - Encephalopathy, unspecified (3) Type 1 diabetes ICD Code: E10.9 - Type 1 diabetes mellitus without complications Status: Acute 62-year-old female with long-term tracheostomy and PEG tube secondary to encephalopathy. Etiology for encephalopathy is related to diabetic ketoacidosis related to type 1 diabetes. Respiratory failure and shock are present at admit. Patient appears stable today. No acute changes overnight. Continue to monitor patient clinically. Encephalopathy Unimproved Likely long-term Continue monitoring neurological status Palliative care following Elevated troponin Chronic systolic heart failure NSTEMI Cardiomyopathy Continue atorvastatin Continue aspirin Most recent ejection fraction 40% Acute hypoxemic respiratory failure Tracheostomy continue oxygenation as needed Continue pulmonary toilet Continue tracheostomy care Moderate protein energy malnutrition Elevated LFT's Continue PEG tube feeds Diabetes mellitus type 1 Follow blood sugars Insulin sliding scale Diabetic diet Continue Levemir DVT prophylaxis SCD heparin SQ Discharge Planning Palliative care following. Son is considering withdrawal of care in 2 weeks if no improvement is seen, and based on pending repeat imaging. Jamin Roberts is the decision-maker. Yovanny Kessler MD January 04, 2018 16:21
[2018-01-05] VITALS (7 sets, daily range): BP systolic 133–150; BP diastolic 73–84; PULSE 61–89; RESP 16–20; TEMP 97.6–98.9; O2SAT 98–99
[2018-01-05] MEDS: HEPARIN SODIUM - SQ 10,000 UNITS/ML VIAL SQ SCH ×3 (00:34→17:16)
[2018-01-05] MEDS: [UNRECOGNIZED DRUG - REMARK] PEG SCH ×4 (04:00→21:38)
[2018-01-05] MEDS: INSULIN ASPART SUPPLEMENTAL SCALE SQ SCH ×3 (06:00→17:17)
[2018-01-05] MEDS: SODIUM CHLORIDE 0.9% FLUSH 10 ML FLUSH IV FLUSH SCH ×3 (09:00→21:37)
[2018-01-05] MEDS: URSODIOL 300 MG CAP PO SCH ×2 (09:03→21:38)
[2018-01-05] MEDS: ASPIRIN 81 MG CHEW TAB PEG SCH (09:03)
[2018-01-05] MEDS: FAMOTIDINE 20 MG TAB PEG SCH ×2 (09:04→21:38)
[2018-01-05] MEDS: CARVEDILOL 12.5 MG TAB PEG SCH ×2 (09:04→21:38)
[2018-01-05] MEDS: INSULIN DETEMIR 100 UNITS/ML VIAL SQ SCH (12:00)
--- NOTE | 2018-01-05 17:32 | HHI.PR ---
Subjective Remarks Patient in her bedroom, no changes to anterior assessment, do not follow commands. no complaint by nurse Miss Bueno. Objective Vital Signs Date Time Temp Pulse Resp B/P (MAP) Pulse Ox O2 Delivery O2 Flow Rate FiO2 01/05/18 16:00 97.8 61 16 140/75 (96) 99 01/05/18 12:00 97.7 74 16 133/73 (93) 98 01/05/18 12:00 99 Trach Collar 5.00 28 01/05/18 08:00 97.6 89 16 148/84 (105) 99 01/05/18 07:00 98 T-Piece 5.00 28 01/05/18 04:09 97.9 76 16 150/79 (102) 98 01/05/18 00:08 99 Trach Collar 5.00 28 01/05/18 00:02 98.7 78 16 141/79 (99) 98 01/04/18 19:30 98.9 88 16 141/76 (97) 99 I/O 01/04/18 01/04/18 01/04/18 01/05/18 01/05/18 01/05/18 07:00 15:00 23:00 07:00 15:00 23:00 Intake Total 1023 ml 980 ml 980 ml Output Total 700 ml 500 ml 800 ml Balance 323 ml 480 ml 180 ml Tube Feeding 523 ml 480 ml 480 ml Other 500 ml 500 ml 500 ml Output Urine Total 700 ml 500 ml 800 ml # Bowel Movements 1 1 Imaging Last Impressions Chest X-Ray 12/23/17 0600 Signed Impressions: Service Date/Time: Saturday, December 23, 2017 04:28 - CONCLUSION: Consolidations and pleural effusions are unchanged. Tracheostomy tube in good position. Landon Graham MD Liver Ultrasound 12/22/17 0000 Signed Impressions: Service Date/Time: Friday, December 22, 2017 09:40 - CONCLUSION: 1. Liver demonstrates no acute finding. However, there is a small volume of free fluid in the abdomen in a perihepatic location. 2. Persistent but overall decreased gallbladder wall thickening. 3. Bilateral pleural effusions. Uziel Troy MD Hepatobiliary Scan Nuclear Medicine 12/18/17 0000 Signed Impressions: Service Date/Time: Monday, December 18, 2017 10:53 - CONCLUSION: 1. Normal uptake and excretion of radiotracer. Dimitri Bird MD ADDENDUM: The there is a air in the report under the medication sections it should read cholecystokinin was administered by slow infusion over 8 minutes beginning at the 60 minute jyoti. Dimitri Bird MD Abdomen/Pelvis CT 12/17/17 0000 Signed Impressions: Service Date/Time: Sunday, December 17, 2017 15:44 - CONCLUSION: 1. There is a trace amount of free air in the upper abdomen anterior to left lobe of the liver and adjacent to the stomach. While nonspecific, this could be related to the G-tube. Suggest correlating with the clinical examination for signs of acute abdomen which would indicate a more concerning cause. 2. Moderately distended ascending and transverse colon. However, no anatomic obstruction is visualized. 3. Signs of fluid overload including bilateral pleural effusions, anasarca, periportal edema, and small volume of free fluid in the abdomen and pelvis. Uziel Troy MD Upper Extremity Ultrasound 12/15/17 0000 Signed Impressions: Service Date/Time: Friday, December 15, 2017 13:57 - CONCLUSION: Nonocclusive thrombus within left internal jugular vein. The remaining venous structures in the left upper extremity appear patent. Uziel Thomas MD Neck CTA 12/11/17 0000 Signed Impressions: Service Date/Time: Monday, December 11, 2017 23:08 - CONCLUSION: No carotid stenosis. Ac Davis MD Head CTA 12/11/17 0000 Signed Impressions: Service Date/Time: Monday, December 11, 2017 23:08 - CONCLUSION: 1. No large vessel stenosis or aneurysm. Ac Davis MD Brain MRI 12/11/17 0000 Signed Impressions: Service Date/Time: Monday, December 11, 2017 11:12 - CONCLUSION: 1. Faint diffusion restriction predominately along the high right parietal convexity with minimal diffusion restriction on the left. Pattern is somewhat unusual for anoxia with the asymmetry. Possible embolic event. CTA of the cervical and intracranial vessels to be performed for further characterization. 2. Chronic changes with some periventricular small vessel ischemic demyelination. 3. Mild ventricular prominence. In the appropriate clinical setting, findings could represent normal pressure hydrocephalus. 4. Bilateral mastoiditis. Mild chronic sinus disease in the sphenoid bilaterally. Dani Titus MD Gall Bladder Ultrasound 4/17/18 0000 Signed Impressions: Service Date/Time: Sunday, December 03, 2017 07:59 - CONCLUSION: 1. Ascites and bilateral pleural effusions. 2. Mildly distended gallbladder without evidence of wall thickening or cholelithiasis. 3. Otherwise unremarkable exam. Boo Cartwright MD Lumbar Puncture Fluoroscopy 12/02/17 0000 Signed Impressions: Service Date/Time: Saturday, December 02, 2017 15:28 - CONCLUSION: Uncomplicated fluoroscopically guided lumbar puncture. Aly Legih MD Renal Ultrasound 11/29/17 1656 Signed Impressions: Service Date/Time: Wednesday, November 29, 2017 13:16 - CONCLUSION: 1. Both kidneys are sonographically normal without hydronephrosis or nephrolithiasis. 2. Very abnormal appearance of the gallbladder with mural thickening and minimal pericholecystic fluid Dani Titus MD Head CT 11/28/17 0000 Signed Impressions: Service Date/Time: November 15:46 - CONCLUSION: 1. Ventriculomegaly suggesting central cerebral atrophy versus hydrocephalus. Clinical correlation is recommended. 2. No acute infarct, acute hemorrhage, midline shift or extra-axial fluid collections. Dev Christopher MD Procedures PEG tube placement Other Results Laboratory Tests Test 11/28/17 14:42 11/28/17 15:07 11/28/17 15:28 11/28/17 16:45 Blood Gas Liter Flow 4 L/M Urine Random Creatinine 25.6 MG/DL Urine Random Sodium 48 MEQ/L Total Creatine Kinase 82 U/L Amylase Level 13 U/L Lipase 63 U/L Salicylates Level 4.1 MG/DL Urine Opiates Screen NEG Urine Barbiturates Screen NEG Urine Amphetamines Screen NEG Urine Benzodiazepines Screen NEG Urine Cocaine Screen NEG Urine Cannabinoids Screen NEG Ethyl Alcohol Level LESS THAN 3 MG/DL Urine Collection Type CATH Urine Color YELLOW Urine Turbidity CLEAR Urine pH 5.0 Urine Specific [place] 1.020 Urine Protein NEG mg/dL Urine Glucose (UA) 1000 OR GREATER mg/dL Urine Ketones 80 OR GREATER mg/dL Urine Occult Blood TRACE Urine Nitrite NEG Urine Bilirubin NEG Urine Urobilinogen 0.2 MG/DL Urine Leukocyte Esterase NEG Urine RBC 0-3 /hpf Urine Squamous Epithelial Cells 0-5 /hpf Microscopic Urinalysis Comment CULT NOT INDICATED Urine Eosinophils NONE SEEN /HPF Urine Collection Time 15:28 Venous Blood pH 7.04 Venous Blood Partial Pressure CO2 19 mmHg Venous Blood Partial Pressure O2 56 mmHg Venous Blood HCO3 5 mmol/L Venous Blood Oxygen Saturation 76 % Venous Blood Oxygen Content 12.0 Vol % Venous Blood Base Excess -23.9 mmol/L Test 11/28/17 18:55 11/29/17 07:05 11/29/17 10:30 11/29/17 17:00 Thyroid Stimulating Hormone 3rd Gen 0.383 uIU/ML Acetaminophen Level 4.9 MCG/ML Nasal Screen MRSA (PCR) MRSA NOT DETECTED Bronchoalveolar Lavage WBC 58 /MM3 Bronchoalveolar Lavage RBC 1616 /MM3 Bronchoalveolar Lavage Neutrophils 82 % Bronchoalveolar Lavage Lymphocytes 17 % Bronchoalveolar Lavage Histiocytes 1 % Lavage Fluid Total Volume 14.0 ML Lavage Fluid Total WBC Count 0.800 MILLION B-Hydroxybutyrate 0.23 MMOL/L Test 11/30/17 04:55 12/01/17 05:17 12/02/17 04:10 12/02/17 15:29 Hemoglobin A1c 7.9 % Troponin I 2.80 NG/ML Triglycerides Level 50 MG/DL Cholesterol Level 95 MG/DL LDL Cholesterol 10 MG/DL HDL Cholesterol 75.3 MG/DL Cholesterol/HDL Ratio 1.26 RATIO Lactic Acid Level 1.9 mmol/L Differential Total Cells Counted 100 Neutrophils % (Manual) 78 % Band Neutrophils % 5 % Lymphocytes % 13 % Monocytes % 3 % Eosinophils % 1 % Neutrophils # (Manual) 12.0 TH/MM3 Platelet Estimate LOW Platelet Morphology Comment NORMAL Red Cell Morphology Comment NORMAL Activated Partial Thromboplast Time 27.7 SEC CSF Volume (Tube 1) 2.5 ML CSF Supernatant Color (tube 1) CLEAR CSF Gross Blood (Tube 1) 0 CSF Volume (Tube 2) 2.8 ML CSF Supernatant Color (tube 2) CLEAR CSF Gross Blood (Tube 2) 0 CSF Volume (Tube 3) 3.0 ML CSF Supernatant Color (tube 3) CLEAR CSF Gross Blood (Tube 3) 0 CSF Volume (Tube 4) 2.5 ML CSF Supernatant Color (tube 4) CLEAR CSF Gross Blood (Tube 4) 0 CSF WBC (Tube 4) 6 /MM3 CSF RBC (Tube 4) 28 /MM3 CSF Neutrophils 2 % CSF Lymphocytes 96 % CSF Monocytes 2 % CSF Glucose 124 MG/DL CSF Total Protein 32.1 MG/DL CSF Myelin Basic Protein LESS THAN 2.0 mcg/L CSF Angiotensin Converting Enzyme LESS THAN 5 U/L CSF VDRL NON-REACTIVE CSF Cryptococcus Antigen NOT DETECTED CSF Cryptococcus Antigen Confirm Herpes Simplex Virus I DNA (PCR) Negative Herpes Simplex Virus II DNA (PCR) Negative Test 12/03/17 08:30 12/04/17 04:55 12/06/17 08:30 12/08/17 11:50 Random Cortisol 17.5 MCG/DL Protein Corrected Calcium 8.5 MG/DL Ammonia 22 MCMOL/L Vancomycin Level Trough 9.4 MCG/ML Stool C. difficile Toxin (PCR) NEGATIVE Stl C. difficile Toxin Epiderm 027 PRESUMPTIVE NEGATIVE Test 12/09/17 04:20 12/13/17 07:55 12/16/17 06:34 12/17/17 05:22 Phenobarbital Level 24.1 MCG/ML Blood Gas Puncture Site RT RADIAL Blood Gas Patient Temperature 37.0 Blood Gas HCO3 27 mmol/L Blood Gas Base Excess 3.5 mmol/L Blood Gas Oxygen Saturation 97 % Arterial Blood pH 7.46 Arterial Blood Partial Pressure CO2 38 mmHg Arterial Blood Partial Pressure O2 139 mmHg Arterial Blood Oxygen Content 17.5 Vol % Arterial Blood Carboxyhemoglobin 1.1 % Arterial Blood Methemoglobin 1.1 % Blood Gas Hemoglobin 12.7 G/DL Oxygen Delivery Device VENTILATOR Blood Gas Ventilator Setting 12/450/PEEP 5 Blood Gas Inspired Oxygen 40 % Blood Urea Nitrogen 17 MG/DL Creatinine 0.61 MG/DL Random Glucose 246 MG/DL Total Protein 6.3 GM/DL Albumin 2.1 GM/DL Calcium Level 8.5 MG/DL Alkaline Phosphatase 1195 U/L Aspartate Amino Transf (AST/SGOT) 200 U/L Alanine Aminotransferase (ALT/SGPT) 243 U/L Total Bilirubin 0.3 MG/DL Direct Bilirubin 0.1 MG/DL Sodium Level 135 MEQ/L Potassium Level 4.6 MEQ/L Chloride Level 99 MEQ/L Carbon Dioxide Level 27.1 MEQ/L Indirect Bilirubin 0.2 MG/DL Prothrombin Time 10.5 SEC Prothromb Time International Ratio 1.0 RATIO Test 12/18/17 06:42 12/19/17 06:34 12/19/17 08:27 12/22/17 05:13 Iron Level 23 MCG/DL Total Iron Binding Capacity 241 MCG/DL Percent Iron Saturation 9.6 % Total Alkaline Phosphatase 1264 U/L Alkaline Phosphatase Iso-Intestine 0 % Alkaline Phosphatase Iso-Bone 40 % Alkaline Phosphatase Iso-Liver 60 % Alkaline Phosph Iso-Macro Hepatic % Alkaline Phos Isoenzymes Interpret Phenytoin (Dilantin) Level 13.1 MCG/ML Anti-Nuclear Antibody Screen NEG Anti-Smooth Muscle Antibody Negative Hepatitis A IgM Antibody NONREACTIVE Hepatitis B Surface Antigen NONREACTIVE Hepatitis B Core IgM Antibody NONREACTIVE Hepatitis C IgG Antibody NONREACTIVE Immunoglobulin A 207 mg/dL Mitochondria M2 Antibody LESS THAN 20.0 U Endomysial Antibody Titer Endomysial IgA Antibody Tissue Transglutaminase IgG Ab U/mL Tissue Transglutaminase IgA Ab LESS THAN 1 U/mL Celiac Disease Interpretation Test 12/23/17 06:01 12/29/17 09:25 Blood Urea Nitrogen 11 MG/DL 18 MG/DL Creatinine 0.50 MG/DL 0.51 MG/DL Random Glucose 150 MG/DL 234 MG/DL Total Protein 6.2 GM/DL 6.8 GM/DL Albumin 2.2 GM/DL 2.8 GM/DL Calcium Level 8.7 MG/DL 8.9 MG/DL Phosphorus Level 3.6 MG/DL Magnesium Level 2.0 MG/DL Alkaline Phosphatase 1062 U/L 555 U/L Aspartate Amino Transf (AST/SGOT) 56 U/L 28 U/L Alanine Aminotransferase (ALT/SGPT) 120 U/L 42 U/L Total Bilirubin 0.2 MG/DL 0.3 MG/DL Sodium Level 137 MEQ/L 135 MEQ/L Potassium Level 4.4 MEQ/L 4.3 MEQ/L Chloride Level 99 MEQ/L 99 MEQ/L Carbon Dioxide Level 28.9 MEQ/L 28.5 MEQ/L White Blood Count 9.9 TH/MM3 Red Blood Count 3.49 MIL/MM3 Hemoglobin 11.3 GM/DL Hematocrit 33.6 % Mean Corpuscular Volume 96.3 FL Mean Corpuscular Hemoglobin 32.3 PG Mean Corpuscular Hemoglobin Concent 33.6 % Red Cell Distribution Width 14.1 % Platelet Count 415 TH/MM3 Mean Platelet Volume 8.7 FL Neutrophils (%) (Auto) 71.1 % Lymphocytes (%) (Auto) 15.6 % Monocytes (%) (Auto) 10.6 % Eosinophils (%) (Auto) 1.9 % Basophils (%) (Auto) 0.8 % Neutrophils # (Auto) 7.1 TH/MM3 Lymphocytes # (Auto) 1.6 TH/MM3 Monocytes # (Auto) 1.1 TH/MM3 Eosinophils # (Auto) 0.2 TH/MM3 Basophils # (Auto) 0.1 TH/MM3 CBC Comment DIFF FINAL Differential Comment Anion Gap 8 MEQ/L Estimat Glomerular Filtration Rate 121 ML/MIN Objective Remarks GENERAL: NAD, A&Ox0 HEAD: Normocephalic. NECK: Supple, tracheostomy in place. EYES: No scleral icterus. No injection or drainage. CARDIOVASCULAR: Regular rate and rhythm without murmurs, gallops, or rubs. RESPIRATORY: Breath sounds equal bilaterally. No accessory muscle use. GASTROINTESTINAL: Abdomen soft, PEG tube in place. MUSCULOSKELETAL: No cyanosis, or edema. SKIN: Warm and dry. NEURO: Not following commands. Medications and IVs Current Medications Medications (Trade) Dose Ordered Sig/Kenna Route Start Time Stop Time Status Last Admin (NS Flush) 2 ml UNSCH PRN IV FLUSH 11/28/17 16:00 12/22/17 20:31 (NS Flush) 2 ml BID IV FLUSH 11/28/17 21:00 01/05/18 09:00 (Albuterol Neb) 2.5 mg Q2HR NEB PRN INH 11/28/17 16:00 12/13/17 02:48 (Dulcolax Supp) 10 mg DAILY PRN RECTAL 11/28/17 16:00 (Zofran Inj) 4 mg Q6H PRN IV PUSH 11/28/17 16:15 (Heparin Inj) 5,000 units Q8H SQ 11/28/17 18:00 Future hold 01/05/18 17:16 (Flonase Willem Spr) 1 spray BID EACH NARE 11/28/17 21:00 Future Hold (D50w (Vial) Inj) 50 ml UNSCH PRN IV PUSH 11/29/17 07:15 12/18/17 20:24 (Glucagon Inj) 1 mg UNSCH PRN OTHER 11/29/17 07:15 (Tylenol 650 Mg/ 20 ml Liq) 650 mg Q6H PRN NG 11/29/17 10:00 12/09/17 09:24 (NS Flush) DAILY IV FLUSH 11/30/17 09:00 01/04/18 09:00 (NS Flush) UNSCH PRN IV FLUSH 11/29/17 11:15 (Lipitor) 10 mg HS PO 11/29/17 21:00 Future Hold 12/12/17 22:13 (Cerebyx Inj) 200 mgpe Q12HR IV 11/30/17 21:00 Future Hold 12/18/17 21:24 (Duoneb Neb) 1 ampule Q2HR NEB PRN NEB 12/19/17 10:00 (Actigall) 300 mg Q12HR PO 12/21/17 21:00 01/05/18 09:03 (Coreg) 12.5 mg Q12HR PEG 12/29/17 10:00 01/05/18 09:04 (Aspirin Chew) 81 mg DAILY PEG 12/29/17 10:00 01/05/18 09:03 (Pepcid) 20 mg BID PEG 12/29/17 10:00 01/05/18 09:04 (Milk Of Magnesia Liq) 30 ml Q12H PRN PEG 12/29/17 09:30 (Senokot) 17.2 mg Q12H PRN PEG 12/29/17 09:30 (Lactulose Liq) 30 ml DAILY PRN PEG 12/29/17 09:30 (NovoLOG SUPPLEMENTAL SCALE) 1 Q6HR SQ 12/29/17 12:00 01/05/18 12:00 (Lacrilube Opht Oint) 1 applic Q6H PRN EACH EYE 12/29/17 10:30 (Free Water) 250 ml Q6H PEG 12/29/17 10:00 01/05/18 16:00 (Levemir Inj) 12 units Q12H SQ 12/30/17 12:00 01/05/18 12:00 A/P Assessment and Plan (1) Encephalopathy, metabolic ICD Code: G93.41 - Metabolic encephalopathy Status: Acute (2) Encephalopathy ICD Code: G93.40 - Encephalopathy, unspecified (3) Type 1 diabetes ICD Code: E10.9 - Type 1 diabetes mellitus without complications Status: Acute 62-year-old female with long-term tracheostomy and PEG tube secondary to encephalopathy. Etiology for encephalopathy is related to diabetic ketoacidosis related to type 1 diabetes. Respiratory failure and shock are present at admit. Patient appears stable today. No acute changes overnight. Continue to monitor patient clinically. 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 Unimproved Likely long-term Continue monitoring neurological status Palliative care following Elevated troponin Chronic systolic heart failure NSTEMI Cardiomyopathy Continue atorvastatin Continue aspirin Most recent ejection fraction 40% Acute hypoxemic respiratory failure Tracheostomy continue oxygenation as needed Continue pulmonary toilet Moderate protein energy malnutrition Elevated LFT's Continue PEG tube feeds Diabetes mellitus type 1 status post DKA. Follow blood sugars Insulin sliding scale Diabetic diet Continue Levemir DVT prophylaxis SCD heparin SQ No changes to anterior assessment. Discharge Planning Palliative care following. her Son Jamin is decision maker. Yovanny Kessler MD January 05, 2018 17:32
[2018-01-06] VITALS (9 sets, daily range): BP systolic 106–152; BP diastolic 56–92; PULSE 76–87; RESP 16–22; TEMP 97.3–99.6; O2SAT 98–100
[2018-01-06] MEDS: HEPARIN SODIUM - SQ 10,000 UNITS/ML VIAL SQ SCH ×3 (01:12→18:00)
[2018-01-06] MEDS: INSULIN DETEMIR 100 UNITS/ML VIAL SQ SCH ×2 (01:12→12:00)
[2018-01-06] MEDS: INSULIN ASPART SUPPLEMENTAL SCALE SQ SCH ×4 (01:12→18:00)
[2018-01-06] MEDS: [UNRECOGNIZED DRUG - REMARK] PEG SCH ×4 (04:00→21:18)
[2018-01-06] MEDS: SODIUM CHLORIDE 0.9% FLUSH 10 ML FLUSH IV FLUSH SCH ×3 (09:00→21:18)
[2018-01-06] MEDS: URSODIOL 300 MG CAP PO SCH ×2 (11:25→21:18)
[2018-01-06] MEDS: ASPIRIN 81 MG CHEW TAB PEG SCH (11:25)
[2018-01-06] MEDS: CARVEDILOL 12.5 MG TAB PEG SCH ×2 (11:25→21:18)
[2018-01-06] MEDS: FAMOTIDINE 20 MG TAB PEG SCH ×2 (11:25→21:18)
--- NOTE | 2018-01-06 13:52 | HHI.PR ---
Subjective Remarks Patient in her bedroom, no changes to anterior assessment, do not follow commands. Discussed with nurse and with her Sister in the room, continue present care, no changes. Objective Vital Signs Date Time Temp Pulse Resp B/P (MAP) Pulse Ox O2 Delivery O2 Flow Rate FiO2 01/06/18 08:34 99 Trach Collar 28 01/06/18 04:00 98.6 80 20 145/92 (109) 99 01/06/18 01:16 99 Trach Collar 5.00 28 01/06/18 00:00 97.3 76 20 137/74 (95) 99 01/05/18 20:00 98.9 84 20 146/76 (99) 99 01/05/18 19:00 100 T-Piece 5.00 28 01/05/18 16:00 97.8 61 16 140/75 (96) 99 I/O 01/05/18 01/05/18 01/05/18 01/06/18 01/06/18 01/06/18 07:00 15:00 23:00 07:00 15:00 23:00 Intake Total 980 ml 980 ml 940 ml Output Total 800 ml 400 ml 600 ml Balance 180 ml 580 ml 340 ml Intake Oral 0 ml Tube Feeding 480 ml 480 ml 440 ml Other 500 ml 500 ml 500 ml Output Urine Total 800 ml 400 ml 600 ml # Voids 2 # Bowel Movements 1 2 Imaging Last Impressions Chest X-Ray 12/23/17 0600 Signed Impressions: Service Date/Time: Saturday, December 23, 2017 04:28 - CONCLUSION: Consolidations and pleural effusions are unchanged. Tracheostomy tube in good position. Landon Graham MD Liver Ultrasound 12/22/17 0000 Signed Impressions: Service Date/Time: Friday, December 22, 2017 09:40 - CONCLUSION: 1. Liver demonstrates no acute finding. However, there is a small volume of free fluid in the abdomen in a perihepatic location. 2. Persistent but overall decreased gallbladder wall thickening. 3. Bilateral pleural effusions. Uziel Troy MD Hepatobiliary Scan Nuclear Medicine 12/18/17 0000 Signed Impressions: Service Date/Time: Monday, December 18, 2017 10:53 - CONCLUSION: 1. Normal uptake and excretion of radiotracer. Dimitri Bird MD ADDENDUM: The there is a air in the report under the medication sections it should read cholecystokinin was administered by slow infusion over 8 minutes beginning at the 60 minute jyoti. Dimitri Bird MD Abdomen/Pelvis CT 12/17/17 0000 Signed Impressions: Service Date/Time: Sunday, December 17, 2017 15:44 - CONCLUSION: 1. There is a trace amount of free air in the upper abdomen anterior to left lobe of the liver and adjacent to the stomach. While nonspecific, this could be related to the G-tube. Suggest correlating with the clinical examination for signs of acute abdomen which would indicate a more concerning cause. 2. Moderately distended ascending and transverse colon. However, no anatomic obstruction is visualized. 3. Signs of fluid overload including bilateral pleural effusions, anasarca, periportal edema, and small volume of free fluid in the abdomen and pelvis. Uziel Troy MD Upper Extremity Ultrasound 12/15/17 0000 Signed Impressions: Service Date/Time: Friday, December 15, 2017 13:57 - CONCLUSION: Nonocclusive thrombus within left internal jugular vein. The remaining venous structures in the left upper extremity appear patent. Uziel Thomas MD Neck CTA 12/11/17 0000 Signed Impressions: Service Date/Time: Monday, December 11, 2017 23:08 - CONCLUSION: No carotid stenosis. Ac Davis MD Head CTA 12/11/17 0000 Signed Impressions: Service Date/Time: Monday, December 11, 2017 23:08 - CONCLUSION: 1. No large vessel stenosis or aneurysm. Ac Davis MD Brain MRI 12/11/17 0000 Signed Impressions: Service Date/Time: Monday, December 11, 2017 11:12 - CONCLUSION: 1. Faint diffusion restriction predominately along the high right parietal convexity with minimal diffusion restriction on the left. Pattern is somewhat unusual for anoxia with the asymmetry. Possible embolic event. CTA of the cervical and intracranial vessels to be performed for further characterization. 2. Chronic changes with some periventricular small vessel ischemic demyelination. 3. Mild ventricular prominence. In the appropriate clinical setting, findings could represent normal pressure hydrocephalus. 4. Bilateral mastoiditis. Mild chronic sinus disease in the sphenoid bilaterally. Dani Titus MD Gall Bladder Ultrasound 12/03/17 0000 Signed Impressions: Service Date/Time: Sunday, December 03, 2017 07:59 - CONCLUSION: 1. Ascites and bilateral pleural effusions. 2. Mildly distended gallbladder without evidence of wall thickening or cholelithiasis. 3. Otherwise unremarkable exam. Boo Cartwright MD Lumbar Puncture Fluoroscopy 12/02/17 0000 Signed Impressions: Service Date/Time: Saturday, December 02, 2017 15:28 - CONCLUSION: Uncomplicated fluoroscopically guided lumbar puncture. Aly Leigh MD Renal Ultrasound 11/29/17 1656 Signed Impressions: Service Date/Time: Wednesday, November 29, 2017 13:16 - CONCLUSION: 1. Both kidneys are sonographically normal without hydronephrosis or nephrolithiasis. 2. Very abnormal appearance of the gallbladder with mural thickening and minimal pericholecystic fluid Dani Titus MD Head CT 11/28/17 0000 Signed Impressions: Service Date/Time: November 15:46 - CONCLUSION: 1. Ventriculomegaly suggesting central cerebral atrophy versus hydrocephalus. Clinical correlation is recommended. 2. No acute infarct, acute hemorrhage, midline shift or extra-axial fluid collections. Dev Christopher MD Procedures PEG tube placement Tracheostomy Other Results Laboratory Tests Test 11/28/17 14:42 11/28/17 15:07 11/28/17 15:28 11/28/17 16:45 Blood Gas Liter Flow 4 L/M Urine Random Creatinine 25.6 MG/DL Urine Random Sodium 48 MEQ/L Total Creatine Kinase 82 U/L Amylase Level 13 U/L Lipase 63 U/L Salicylates Level 4.1 MG/DL Urine Opiates Screen NEG Urine Barbiturates Screen NEG Urine Amphetamines Screen NEG Urine Benzodiazepines Screen NEG Urine Cocaine Screen NEG Urine Cannabinoids Screen NEG Ethyl Alcohol Level LESS THAN 3 MG/DL Urine Collection Type CATH Urine Color YELLOW Urine Turbidity CLEAR Urine pH 5.0 Urine Specific [place] 1.020 Urine Protein NEG mg/dL Urine Glucose (UA) 1000 OR GREATER mg/dL Urine Ketones 80 OR GREATER mg/dL Urine Occult Blood TRACE Urine Nitrite NEG Urine Bilirubin NEG Urine Urobilinogen 0.2 MG/DL Urine Leukocyte Esterase NEG Urine RBC 0-3 /hpf Urine Squamous Epithelial Cells 0-5 /hpf Microscopic Urinalysis Comment CULT NOT INDICATED Urine Eosinophils NONE SEEN /HPF Urine Collection Time 15:28 Venous Blood pH 7.04 Venous Blood Partial Pressure CO2 19 mmHg Venous Blood Partial Pressure O2 56 mmHg Venous Blood HCO3 5 mmol/L Venous Blood Oxygen Saturation 76 % Venous Blood Oxygen Content 12.0 Vol % Venous Blood Base Excess -23.9 mmol/L Test 11/28/17 18:55 11/29/17 07:05 11/29/17 10:30 11/29/17 17:00 Thyroid Stimulating Hormone 3rd Gen 0.383 uIU/ML Acetaminophen Level 4.9 MCG/ML Nasal Screen MRSA (PCR) MRSA NOT DETECTED Bronchoalveolar Lavage WBC 58 /MM3 Bronchoalveolar Lavage RBC 1616 /MM3 Bronchoalveolar Lavage Neutrophils 82 % Bronchoalveolar Lavage Lymphocytes 17 % Bronchoalveolar Lavage Histiocytes 1 % Lavage Fluid Total Volume 14.0 ML Lavage Fluid Total WBC Count 0.800 MILLION B-Hydroxybutyrate 0.23 MMOL/L Test 11/30/17 04:55 12/01/17 05:17 12/02/17 04:10 12/02/17 15:29 Hemoglobin A1c 7.9 % Troponin I 2.80 NG/ML Triglycerides Level 50 MG/DL Cholesterol Level 95 MG/DL LDL Cholesterol 10 MG/DL HDL Cholesterol 75.3 MG/DL Cholesterol/HDL Ratio 1.26 RATIO Lactic Acid Level 1.9 mmol/L Differential Total Cells Counted 100 Neutrophils % (Manual) 78 % Band Neutrophils % 5 % Lymphocytes % 13 % Monocytes % 3 % Eosinophils % 1 % Neutrophils # (Manual) 12.0 TH/MM3 Platelet Estimate LOW Platelet Morphology Comment NORMAL Red Cell Morphology Comment NORMAL Activated Partial Thromboplast Time 27.7 SEC CSF Volume (Tube 1) 2.5 ML CSF Supernatant Color (tube 1) CLEAR CSF Gross Blood (Tube 1) 0 CSF Volume (Tube 2) 2.8 ML CSF Supernatant Color (tube 2) CLEAR CSF Gross Blood (Tube 2) 0 CSF Volume (Tube 3) 3.0 ML CSF Supernatant Color (tube 3) CLEAR CSF Gross Blood (Tube 3) 0 CSF Volume (Tube 4) 2.5 ML CSF Supernatant Color (tube 4) CLEAR CSF Gross Blood (Tube 4) 0 CSF WBC (Tube 4) 6 /MM3 CSF RBC (Tube 4) 28 /MM3 CSF Neutrophils 2 % CSF Lymphocytes 96 % CSF Monocytes 2 % CSF Glucose 124 MG/DL CSF Total Protein 32.1 MG/DL CSF Myelin Basic Protein LESS THAN 2.0 mcg/L CSF Angiotensin Converting Enzyme LESS THAN 5 U/L CSF VDRL NON-REACTIVE CSF Cryptococcus Antigen NOT DETECTED CSF Cryptococcus Antigen Confirm Herpes Simplex Virus I DNA (PCR) Negative Herpes Simplex Virus II DNA (PCR) Negative Test 12/03/17 08:30 12/04/17 04:55 12/06/17 08:30 12/08/17 11:50 Random Cortisol 17.5 MCG/DL Protein Corrected Calcium 8.5 MG/DL Ammonia 22 MCMOL/L Vancomycin Level Trough 9.4 MCG/ML Stool C. difficile Toxin (PCR) NEGATIVE Stl C. difficile Toxin Epiderm 027 PRESUMPTIVE NEGATIVE Test 12/09/17 04:20 12/13/17 07:55 12/16/17 06:34 12/17/17 05:22 Phenobarbital Level 24.1 MCG/ML Blood Gas Puncture Site RT RADIAL Blood Gas Patient Temperature 37.0 Blood Gas HCO3 27 mmol/L Blood Gas Base Excess 3.5 mmol/L Blood Gas Oxygen Saturation 97 % Arterial Blood pH 7.46 Arterial Blood Partial Pressure CO2 38 mmHg Arterial Blood Partial Pressure O2 139 mmHg Arterial Blood Oxygen Content 17.5 Vol % Arterial Blood Carboxyhemoglobin 1.1 % Arterial Blood Methemoglobin 1.1 % Blood Gas Hemoglobin 12.7 G/DL Oxygen Delivery Device VENTILATOR Blood Gas Ventilator Setting 12/450/PEEP 5 Blood Gas Inspired Oxygen 40 % Blood Urea Nitrogen 17 MG/DL Creatinine 0.61 MG/DL Random Glucose 246 MG/DL Total Protein 6.3 GM/DL Albumin 2.1 GM/DL Calcium Level 8.5 MG/DL Alkaline Phosphatase 1195 U/L Aspartate Amino Transf (AST/SGOT) 200 U/L Alanine Aminotransferase (ALT/SGPT) 243 U/L Total Bilirubin 0.3 MG/DL Direct Bilirubin 0.1 MG/DL Sodium Level 135 MEQ/L Potassium Level 4.6 MEQ/L Chloride Level 99 MEQ/L Carbon Dioxide Level 27.1 MEQ/L Indirect Bilirubin 0.2 MG/DL Prothrombin Time 10.5 SEC Prothromb Time International Ratio 1.0 RATIO Test 12/18/17 06:42 12/19/17 06:34 12/19/17 08:27 12/22/17 05:13 Iron Level 23 MCG/DL Total Iron Binding Capacity 241 MCG/DL Percent Iron Saturation 9.6 % Total Alkaline Phosphatase 1264 U/L Alkaline Phosphatase Iso-Intestine 0 % Alkaline Phosphatase Iso-Bone 40 % Alkaline Phosphatase Iso-Liver 60 % Alkaline Phosph Iso-Macro Hepatic % Alkaline Phos Isoenzymes Interpret Phenytoin (Dilantin) Level 13.1 MCG/ML Anti-Nuclear Antibody Screen NEG Anti-Smooth Muscle Antibody Negative Hepatitis A IgM Antibody NONREACTIVE Hepatitis B Surface Antigen NONREACTIVE Hepatitis B Core IgM Antibody NONREACTIVE Hepatitis C IgG Antibody NONREACTIVE Immunoglobulin A 207 mg/dL Mitochondria M2 Antibody LESS THAN 20.0 U Endomysial Antibody Titer Endomysial IgA Antibody Tissue Transglutaminase IgG Ab U/mL Tissue Transglutaminase IgA Ab LESS THAN 1 U/mL Celiac Disease Interpretation Test 12/23/17 06:01 12/29/17 09:25 Blood Urea Nitrogen 11 MG/DL 18 MG/DL Creatinine 0.50 MG/DL 0.51 MG/DL Random Glucose 150 MG/DL 234 MG/DL Total Protein 6.2 GM/DL 6.8 GM/DL Albumin 2.2 GM/DL 2.8 GM/DL Calcium Level 8.7 MG/DL 8.9 MG/DL Phosphorus Level 3.6 MG/DL Magnesium Level 2.0 MG/DL Alkaline Phosphatase 1062 U/L 555 U/L Aspartate Amino Transf (AST/SGOT) 56 U/L 28 U/L Alanine Aminotransferase (ALT/SGPT) 120 U/L 42 U/L Total Bilirubin 0.2 MG/DL 0.3 MG/DL Sodium Level 137 MEQ/L 135 MEQ/L Potassium Level 4.4 MEQ/L 4.3 MEQ/L Chloride Level 99 MEQ/L 99 MEQ/L Carbon Dioxide Level 28.9 MEQ/L 28.5 MEQ/L White Blood Count 9.9 TH/MM3 Red Blood Count 3.49 MIL/MM3 Hemoglobin 11.3 GM/DL Hematocrit 33.6 % Mean Corpuscular Volume 96.3 FL Mean Corpuscular Hemoglobin 32.3 PG Mean Corpuscular Hemoglobin Concent 33.6 % Red Cell Distribution Width 14.1 % Platelet Count 415 TH/MM3 Mean Platelet Volume 8.7 FL Neutrophils (%) (Auto) 71.1 % Lymphocytes (%) (Auto) 15.6 % Monocytes (%) (Auto) 10.6 % Eosinophils (%) (Auto) 1.9 % Basophils (%) (Auto) 0.8 % Neutrophils # (Auto) 7.1 TH/MM3 Lymphocytes # (Auto) 1.6 TH/MM3 Monocytes # (Auto) 1.1 TH/MM3 Eosinophils # (Auto) 0.2 TH/MM3 Basophils # (Auto) 0.1 TH/MM3 CBC Comment DIFF FINAL Differential Comment Anion Gap 8 MEQ/L Estimat Glomerular Filtration Rate 121 ML/MIN Objective Remarks GENERAL: NAD, A&Ox0 HEAD: Normocephalic. NECK: Supple, tracheostomy in place. EYES: No scleral icterus. No injection or drainage. CARDIOVASCULAR: Regular rate and rhythm without murmurs, gallops, or rubs. RESPIRATORY: Breath sounds equal bilaterally. No accessory muscle use. GASTROINTESTINAL: Abdomen soft, PEG tube in place. MUSCULOSKELETAL: No cyanosis, or edema. SKIN: Warm and dry. NEURO: Not following commands. Medications and IVs Current Medications Medications (Trade) Dose Ordered Sig/Kenna Route Start Time Stop Time Status Last Admin (NS Flush) 2 ml UNSCH PRN IV FLUSH 11/28/17 16:00 12/22/17 20:31 (NS Flush) 2 ml BID IV FLUSH 11/28/17 21:00 01/06/18 09:00 (Albuterol Neb) 2.5 mg Q2HR NEB PRN INH 11/28/17 16:00 12/13/17 02:48 (Dulcolax Supp) 10 mg DAILY PRN RECTAL 11/28/17 16:00 (Zofran Inj) 4 mg Q6H PRN IV PUSH 11/28/17 16:15 (Heparin Inj) 5,000 units Q8H SQ 11/28/17 18:00 Future hold 01/06/18 11:25 (Flonase Willem Spr) 1 spray BID EACH NARE 11/28/17 21:00 Future Hold (D50w (Vial) Inj) 50 ml UNSCH PRN IV PUSH 11/29/17 07:15 12/18/17 20:24 (Glucagon Inj) 1 mg UNSCH PRN OTHER 11/29/17 07:15 (Tylenol 650 Mg/ 20 ml Liq) 650 mg Q6H PRN NG 11/29/17 10:00 12/09/17 09:24 (NS Flush) DAILY IV FLUSH 11/30/17 09:00 01/06/18 09:00 (NS Flush) UNSCH PRN IV FLUSH 11/29/17 11:15 (Lipitor) 10 mg HS PO 11/29/17 21:00 Future Hold 12/12/17 22:13 (Cerebyx Inj) 200 mgpe Q12HR IV 11/30/17 21:00 Future Hold 12/18/17 21:24 (Duoneb Neb) 1 ampule Q2HR NEB PRN NEB 12/19/17 10:00 (Actigall) 300 mg Q12HR PO 12/21/17 21:00 01/06/18 11:25 (Coreg) 12.5 mg Q12HR PEG 12/29/17 10:00 01/06/18 11:25 (Aspirin Chew) 81 mg DAILY PEG 12/29/17 10:00 01/06/18 11:25 (Pepcid) 20 mg BID PEG 12/29/17 10:00 01/06/18 11:25 (Milk Of Magnesia Liq) 30 ml Q12H PRN PEG 12/29/17 09:30 (Senokot) 17.2 mg Q12H PRN PEG 12/29/17 09:30 (Lactulose Liq) 30 ml DAILY PRN PEG 12/29/17 09:30 (NovoLOG SUPPLEMENTAL SCALE) 1 Q6HR SQ 12/29/17 12:00 01/06/18 13:16 (Lacrilube Opht Oint) 1 applic Q6H PRN EACH EYE 12/29/17 10:30 (Free Water) 250 ml Q6H PEG 12/29/17 10:00 01/06/18 10:00 (Levemir Inj) 12 units Q12H SQ 12/30/17 12:00 01/06/18 12:00 A/P Assessment and Plan (1) Encephalopathy, metabolic ICD Code: G93.41 - Metabolic encephalopathy Status: Acute (2) Encephalopathy ICD Code: G93.40 - Encephalopathy, unspecified (3) Type 1 diabetes ICD Code: E10.9 - Type 1 diabetes mellitus without complications Status: Acute 62-year-old female with long-term tracheostomy and PEG tube secondary to encephalopathy. Etiology for encephalopathy is related to diabetic ketoacidosis related to type 1 diabetes. Respiratory failure and shock are present at admit. 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 Unimproved Likely long-term Continue monitoring neurological status Palliative care following Elevated troponin Chronic systolic heart failure NSTEMI Cardiomyopathy Continue atorvastatin Continue aspirin Most recent ejection fraction 40% Acute hypoxemic respiratory failure Tracheostomy continue oxygenation as needed Continue pulmonary toilet Moderate protein energy malnutrition Elevated LFT's Continue PEG tube feeds Diabetes mellitus type 1 status post DKA. Follow blood sugars Insulin sliding scale Diabetic diet Continue Levemir DVT prophylaxis SCD heparin SQ No changes to anterior assessment. Discharge Planning Palliative care following. her Son Jamin is decision maker. Yovanny Kessler MD January 06, 2018 13:52
--- NOTE | 2018-01-06 17:23 | HHI.HCPN ---
Reason for visit a. To assist with evaluation and management of symptoms including: Weakness , encephalopathy b. To assist medical decision maker(s) with: better understanding of current medical conditions; weighing benefits/burdens of medical treatment options; making medical treatment decisions. Subjective/Interval History Patient seen to follow-up on symptoms of weakness, encephalopathy. Patient is awake and alert today. She makes eye contact, tracks examiner and smiles. Left mouth droop noted. She mouth the word "hello". Her son is at bedside. She will squeeze on command with her right hand but does not follow commands with the remaining 3 extremities. She was noted to have moderate encephalopathy when seen by neurology on 12/23. It is difficult to further assess , as she remains on trach collar and is not speaking at this time. She is noted to have bilateral foot drop and does not follow commands with left arm or bilateral legs. She is unable to maintain trunk control when sitting up and requires stretcher chair. She is seen to use her right hand to position her left hand. Appears to have beginning contractures in the left arm. . Family/friend interactions Spoke with her son at bedside who is happy at her improving mentation but again concerned about her physical disabilities. He states that he would feel better if he could hear her speak and gain some concept of her mentation. He remains committed to keeping her a DO NOT RESUSCITATE status but is not certain, given her improvement in mentation, whether he would proceed with withdrawal of care prior to assessing her mental status better. . Advance Directives Living Will: Never completed Health Care Surrogate: Never completed Durable Power of Utility Mechanic Supervisor: Never completed Advance Directive Specifics Date completed: None completed. . Health Care Surrogate(s): None available. Per [place] statutes, her son Jamin would be the healthcare proxy and is willing to serve. . Documented care wishes: No documented care wishes available. . Objective Vital Signs Date Time Temp Pulse Resp B/P (MAP) Pulse Ox O2 Delivery O2 Flow Rate FiO2 01/06/18 08:34 99 Trach Collar 28 01/06/18 07:00 100 T-Piece 5.00 28 01/06/18 04:00 98.6 80 20 145/92 (109) 99 01/06/18 01:16 99 Trach Collar 5.00 28 01/06/18 00:00 97.3 76 20 137/74 (95) 99 01/05/18 20:00 98.9 84 20 146/76 (99) 99 01/05/18 19:00 100 T-Piece 5.00 28 Intake & Output 01/06/18 01/06/18 07:00 19:00 Intake Total 940 ml Output Total 600 ml Balance 340 ml Intake Oral 0 ml Tube Feeding 440 ml Other 500 ml Output Urine Total 600 ml # Voids 2 # Bowel Movements 2 Physical Exam CONSTITUTIONAL/GENERAL: This is an adequately nourished patient, awake, somewhat interactive on trach collar. TUBES/LINES/DRAINS: PIV Méndez catheter . Trach, PEG SKIN: No jaundice, rashes, or lesions. No wounds seen anteriorly. Skin warm/ dry HEAD: Atraumatic. Normocephalic. EYES: Pupils equal and round and reactive. No scleral icterus. No injection or drainage. Fundi not examined. ENT: Nose without bleeding or purulent drainage. Left mouth droop noted CARDIOVASCULAR: Regular rate and rhythm without murmur. No JVD. Peripheral pulses symmetric. RESPIRATORY/CHEST: Symmetric, unlabored respirations via trach. No wheezes, rhonchi or crackles. GASTROINTESTINAL: Abdomen soft, round, nondistended. No palpable masses. Bowel sounds normoactive. TF infusing. GENITOURINARY: Without palpable bladder distension. Méndez catheter in place clear, yellow urine. MUSCULOSKELETAL: Extremities without clubbing, cyanosis. No mottling or clubbing. LYMPHATICS: No palpable cervical or supraclavicular adenopathy. NEUROLOGICAL: Awake, smiles, tracks examiner, moves right arm, no spontaneous movement from remaining 3 extremities. PSYCHIATRIC: Calm . Diagnostic Tests Procedures 11/29: Orotracheal intubation 11/29: Right chest tube placement secondary to iatrogenic pneumothorax. 11/29: Bronchoscopy 11/29: Left IJ central line placement 11/30: Bronchoscopy 12/16: Bronchoscopy 12/16: Upper endoscopy with PEG tube placement . Assessment and Plan Disease Oriented Problem List: (1) Hyperkalemia (2) Acute renal failure (3) DKA (diabetic ketoacidoses) (4) Altered mental status (5) Metabolic acidosis (6) Hypotension (7) Seizure cerebral (8) Encephalopathy, metabolic (9) NSTEMI (non-ST elevated myocardial infarction) (10) UTI (urinary tract infection) (11) Type 1 diabetes (12) Leukocytosis (13) Respiratory failure (14) Hypertension Symptom Scale: (1) Encephalopathy 0-10 Scale: Unable to quantify (2) Dyspnea 0-10 Scale: Unable to quantify Pertinent Non-Medical Issues Psychosocial:Originally from [facility], moved here to [place] about 3 years ago to be closer to her sister and mother. Her son Jamin lives in [place]. 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 Supported locally by her sister , and significant other León De León. Patient and her sister Evelyn take turns helping to care for their mother who is in her 90s. Spiritual:Restorationist adonay, attended [employer]. Would appreciate alternative energy technician visits per significant other. Legal:Pt unable to participate due to encephalopathy, not clear she will regain ability to participate. Her sister has been involved in her care and decisions. She also is reported to have one son who lives in [place]. Not known at this time if she has advanced directives or health care surrogate designation. If she does not have advanced directives, then her son or any additional children would be appropriate legal proxy per [place] statutes ( if they wish to serve as such). Ethical issues impacting care: No ethical issues identified. Important Contacts sister Evelyn Obrien at [phone] Son Jamin (in [place]) Significant other León De León [phone]/ [phone] . Prognosis This patient was initially admitted for altered mental status, findings of DKA. She also suffered acute renal failure, respiratory failure. She were now remains profoundly encephalopathic on mechanical vent at this time unable to medically wean. 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 It is likely she will require tracheostomy and PEG tube to continue aggressive treatment course. . Code Status: No Code Plan * Legal decision maker:Pt unable to participate due to encephalopathy, not clear she will regain ability to participate. Her son, Jamin, has traveled from [place] to assist in decision making and per [place] Statutes, in the absence of Advanced Directives, he would be the legal proxy decision maker. * Goals: Comfort oriented. Continue intubation, no cardiac resuscitation. * CODE STATUS: Alternative code, continue intubation for now, no CPR, shock or ACLS drugs. * SYMPTOMS: --Encephalopathy-admitted with DKA, altered mental status. Initial MRI, CSF etc. negative. Repeat MRI findings area of diffusion restriction on right parietal convexity with less diffusion restriction on the left. Consistent with 12/11 EEG showing severe encephalopathy with more prominent slowing over the right hemisphere. CTA of neck and brain showed no acute findings. Now awake, following ome commands with right hand only. Recommend attempting Passy- Sharmin valve to more accurately assess mental status. --Weakness-not moving left arm or bilateral legs. It is uncertain whether this is related to extended bedbound course versus hypoxic/anoxic injury from DKA on admission. There is concern for contracture in the left upper extremity. Recommend OT to address left arm for possible contracture * Palliative care will continue to follow during hospital course as condition evolves, to assist patient/decision-maker with understanding of medical conditions, weighing benefits/burdens of treatment options, for clarification of goals of treatment. Additionally will assist with any symptoms of palliative concern . Attestation To help prompt me to consider important information that might be impacting today's encounter and assessment, information from prior notes written by myself or my colleagues may have been "brought forward" into today's note. My signature on this note, however, is an attestation that I personally performed the exam, history, and/or decision-making noted today, and, unless otherwise indicated, the interactions with patient, family, and staff as well as the review of records all occurred today. I also attest that the listed assessment and stated plan reflect my best clinical judgment today based on the combination of historical information, prior notes, and today's exam/ interactions. When time spent is documented, it refers only to time spent today by the signer, or if indicated, combined time spent today by collaborating physician/nurse practitioner. . Marii Horowitz January 06, 2018 17:23
[2018-01-07] VITALS (7 sets, daily range): BP systolic 121–146; BP diastolic 68–82; PULSE 72–85; RESP 18–22; TEMP 98.3–99.1; O2SAT 97–99
[2018-01-07] MEDS: INSULIN ASPART SUPPLEMENTAL SCALE SQ SCH ×5 (00:58→23:11)
[2018-01-07] MEDS: INSULIN DETEMIR 100 UNITS/ML VIAL SQ SCH ×3 (00:58→23:14)
[2018-01-07] MEDS: HEPARIN SODIUM - SQ 10,000 UNITS/ML VIAL SQ SCH ×3 (02:30→17:43)
[2018-01-07] MEDS: [UNRECOGNIZED DRUG - REMARK] PEG SCH ×4 (04:00→21:23)
[2018-01-07] MEDS: ASPIRIN 81 MG CHEW TAB PEG SCH (08:24)
[2018-01-07] MEDS: FAMOTIDINE 20 MG TAB PEG SCH ×2 (08:24→20:22)
[2018-01-07] MEDS: CARVEDILOL 12.5 MG TAB PEG SCH ×2 (08:25→20:22)
[2018-01-07] MEDS: URSODIOL 300 MG CAP PO SCH ×2 (08:26→20:22)
[2018-01-07] MEDS: SODIUM CHLORIDE 0.9% FLUSH 10 ML FLUSH IV FLUSH SCH ×3 (09:53→20:28)
--- NOTE | 2018-01-07 14:11 | HHI.PR ---
Subjective Remarks Discussed with nurse Miss Ortega no new issues, continue present care, No nausea, vomit or diarrhea, vital signs stable. Objective Vital Signs Date Time Temp Pulse Resp B/P (MAP) Pulse Ox O2 Delivery O2 Flow Rate FiO2 01/07/18 09:41 97 Trach Collar 28 01/07/18 08:00 99.1 85 20 132/82 (99) 97 01/07/18 07:00 98 T-Piece 5.00 28 01/07/18 04:00 98.6 84 18 142/79 (100) 98 01/07/18 00:00 99.1 76 18 146/81 (102) 99 01/06/18 22:26 99 Trach Collar 5.00 28 01/06/18 20:00 100 T-Piece 5.00 28 01/06/18 19:54 99.6 86 16 152/91 (111) 99 01/06/18 16:00 98.4 83 22 140/85 (103) 100 I/O 01/06/18 01/06/18 01/06/18 01/07/18 01/07/18 01/07/18 07:00 15:00 23:00 07:00 15:00 23:00 Intake Total 940 ml 984 ml 971 ml Output Total 600 ml Balance 340 ml 984 ml 971 ml Intake Oral 0 ml Tube Feeding 440 ml 484 ml 471 ml Other 500 ml 500 ml 500 ml Output Urine Total 600 ml # Voids 2 2 3 # Bowel Movements 2 1 1 Imaging Last Impressions Chest X-Ray 12/23/17 0600 Signed Impressions: Service Date/Time: Saturday, December 23, 2017 04:28 - CONCLUSION: Consolidations and pleural effusions are unchanged. Tracheostomy tube in good position. Landon Graham MD Liver Ultrasound 12/22/17 0000 Signed Impressions: Service Date/Time: Friday, December 22, 2017 09:40 - CONCLUSION: 1. Liver demonstrates no acute finding. However, there is a small volume of free fluid in the abdomen in a perihepatic location. 2. Persistent but overall decreased gallbladder wall thickening. 3. Bilateral pleural effusions. Uziel Troy MD Hepatobiliary Scan Nuclear Medicine 12/18/17 0000 Signed Impressions: Service Date/Time: Monday, December 18, 2017 10:53 - CONCLUSION: 1. Normal uptake and excretion of radiotracer. Dimitri Bird MD ADDENDUM: The there is a air in the report under the medication sections it should read cholecystokinin was administered by slow infusion over 8 minutes beginning at the 60 minute jyoti. Dimitri Bird MD Abdomen/Pelvis CT 12/17/17 0000 Signed Impressions: Service Date/Time: Sunday, December 17, 2017 15:44 - CONCLUSION: 1. There is a trace amount of free air in the upper abdomen anterior to left lobe of the liver and adjacent to the stomach. While nonspecific, this could be related to the G-tube. Suggest correlating with the clinical examination for signs of acute abdomen which would indicate a more concerning cause. 2. Moderately distended ascending and transverse colon. However, no anatomic obstruction is visualized. 3. Signs of fluid overload including bilateral pleural effusions, anasarca, periportal edema, and small volume of free fluid in the abdomen and pelvis. Uziel Troy MD Upper Extremity Ultrasound 12/15/17 0000 Signed Impressions: Service Date/Time: Friday, December 15, 2017 13:57 - CONCLUSION: Nonocclusive thrombus within left internal jugular vein. The remaining venous structures in the left upper extremity appear patent. Uziel Thomas MD Neck CTA 12/11/17 0000 Signed Impressions: Service Date/Time: Monday, December 11, 2017 23:08 - CONCLUSION: No carotid stenosis. Ac Davis MD Head CTA 12/11/17 0000 Signed Impressions: Service Date/Time: Monday, December 11, 2017 23:08 - CONCLUSION: 1. No large vessel stenosis or aneurysm. Ac Davis MD Brain MRI 12/11/17 0000 Signed Impressions: Service Date/Time: Monday, December 11, 2017 11:12 - CONCLUSION: 1. Faint diffusion restriction predominately along the high right parietal convexity with minimal diffusion restriction on the left. Pattern is somewhat unusual for anoxia with the asymmetry. Possible embolic event. CTA of the cervical and intracranial vessels to be performed for further characterization. 2. Chronic changes with some periventricular small vessel ischemic demyelination. 3. Mild ventricular prominence. In the appropriate clinical setting, findings could represent normal pressure hydrocephalus. 4. Bilateral mastoiditis. Mild chronic sinus disease in the sphenoid bilaterally. Dani Titus MD Gall Bladder Ultrasound 12/03/17 0000 Signed Impressions: Service Date/Time: Sunday, December 03, 2017 07:59 - CONCLUSION: 1. Ascites and bilateral pleural effusions. 2. Mildly distended gallbladder without evidence of wall thickening or cholelithiasis. 3. Otherwise unremarkable exam. Boo Cartwright MD Lumbar Puncture Fluoroscopy 12/02/17 0000 Signed Impressions: Service Date/Time: Saturday, December 02, 2017 15:28 - CONCLUSION: Uncomplicated fluoroscopically guided lumbar puncture. Aly Leigh MD Renal Ultrasound 11/29/17 1656 Signed Impressions: Service Date/Time: Wednesday, November 29, 2017 13:16 - CONCLUSION: 1. Both kidneys are sonographically normal without hydronephrosis or nephrolithiasis. 2. Very abnormal appearance of the gallbladder with mural thickening and minimal pericholecystic fluid Dani Titus MD Head CT 11/28/17 0000 Signed Impressions: Service Date/Time: November 15:46 - CONCLUSION: 1. Ventriculomegaly suggesting central cerebral atrophy versus hydrocephalus. Clinical correlation is recommended. 2. No acute infarct, acute hemorrhage, midline shift or extra-axial fluid collections. Dev Christopher MD Procedures PEG tube placement Tracheostomy Other Results Laboratory Tests Test 11/28/17 14:42 11/28/17 15:07 11/28/17 15:28 11/28/17 16:45 Blood Gas Liter Flow 4 L/M Urine Random Creatinine 25.6 MG/DL Urine Random Sodium 48 MEQ/L Total Creatine Kinase 82 U/L Amylase Level 13 U/L Lipase 63 U/L Salicylates Level 4.1 MG/DL Urine Opiates Screen NEG Urine Barbiturates Screen NEG Urine Amphetamines Screen NEG Urine Benzodiazepines Screen NEG Urine Cocaine Screen NEG Urine Cannabinoids Screen NEG Ethyl Alcohol Level LESS THAN 3 MG/DL Urine Collection Type CATH Urine Color YELLOW Urine Turbidity CLEAR Urine pH 5.0 Urine Specific [place] 1.020 Urine Protein NEG mg/dL Urine Glucose (UA) 1000 OR GREATER mg/dL Urine Ketones 80 OR GREATER mg/dL Urine Occult Blood TRACE Urine Nitrite NEG Urine Bilirubin NEG Urine Urobilinogen 0.2 MG/DL Urine Leukocyte Esterase NEG Urine RBC 0-3 /hpf Urine Squamous Epithelial Cells 0-5 /hpf Microscopic Urinalysis Comment CULT NOT INDICATED Urine Eosinophils NONE SEEN /HPF Urine Collection Time 15:28 Venous Blood pH 7.04 Venous Blood Partial Pressure CO2 19 mmHg Venous Blood Partial Pressure O2 56 mmHg Venous Blood HCO3 5 mmol/L Venous Blood Oxygen Saturation 76 % Venous Blood Oxygen Content 12.0 Vol % Venous Blood Base Excess -23.9 mmol/L Test 11/28/17 18:55 11/29/17 07:05 11/29/17 10:30 11/29/17 17:00 Thyroid Stimulating Hormone 3rd Gen 0.383 uIU/ML Acetaminophen Level 4.9 MCG/ML Nasal Screen MRSA (PCR) MRSA NOT DETECTED Bronchoalveolar Lavage WBC 58 /MM3 Bronchoalveolar Lavage RBC 1616 /MM3 Bronchoalveolar Lavage Neutrophils 82 % Bronchoalveolar Lavage Lymphocytes 17 % Bronchoalveolar Lavage Histiocytes 1 % Lavage Fluid Total Volume 14.0 ML Lavage Fluid Total WBC Count 0.800 MILLION B-Hydroxybutyrate 0.23 MMOL/L Test 11/30/17 04:55 12/01/17 05:17 12/02/17 04:10 12/02/17 15:29 Hemoglobin A1c 7.9 % Troponin I 2.80 NG/ML Triglycerides Level 50 MG/DL Cholesterol Level 95 MG/DL LDL Cholesterol 10 MG/DL HDL Cholesterol 75.3 MG/DL Cholesterol/HDL Ratio 1.26 RATIO Lactic Acid Level 1.9 mmol/L Differential Total Cells Counted 100 Neutrophils % (Manual) 78 % Band Neutrophils % 5 % Lymphocytes % 13 % Monocytes % 3 % Eosinophils % 1 % Neutrophils # (Manual) 12.0 TH/MM3 Platelet Estimate LOW Platelet Morphology Comment NORMAL Red Cell Morphology Comment NORMAL Activated Partial Thromboplast Time 27.7 SEC CSF Volume (Tube 1) 2.5 ML CSF Supernatant Color (tube 1) CLEAR CSF Gross Blood (Tube 1) 0 CSF Volume (Tube 2) 2.8 ML CSF Supernatant Color (tube 2) CLEAR CSF Gross Blood (Tube 2) 0 CSF Volume (Tube 3) 3.0 ML CSF Supernatant Color (tube 3) CLEAR CSF Gross Blood (Tube 3) 0 CSF Volume (Tube 4) 2.5 ML CSF Supernatant Color (tube 4) CLEAR CSF Gross Blood (Tube 4) 0 CSF WBC (Tube 4) 6 /MM3 CSF RBC (Tube 4) 28 /MM3 CSF Neutrophils 2 % CSF Lymphocytes 96 % CSF Monocytes 2 % CSF Glucose 124 MG/DL CSF Total Protein 32.1 MG/DL CSF Myelin Basic Protein LESS THAN 2.0 mcg/L CSF Angiotensin Converting Enzyme LESS THAN 5 U/L CSF VDRL NON-REACTIVE CSF Cryptococcus Antigen NOT DETECTED CSF Cryptococcus Antigen Confirm Herpes Simplex Virus I DNA (PCR) Negative Herpes Simplex Virus II DNA (PCR) Negative Test 12/03/17 08:30 12/04/17 04:55 12/06/17 08:30 12/08/17 11:50 Random Cortisol 17.5 MCG/DL Protein Corrected Calcium 8.5 MG/DL Ammonia 22 MCMOL/L Vancomycin Level Trough 9.4 MCG/ML Stool C. difficile Toxin (PCR) NEGATIVE Stl C. difficile Toxin Epiderm 027 PRESUMPTIVE NEGATIVE Test 12/09/17 04:20 12/13/17 07:55 12/16/17 06:34 12/17/17 05:22 Phenobarbital Level 24.1 MCG/ML Blood Gas Puncture Site RT RADIAL Blood Gas Patient Temperature 37.0 Blood Gas HCO3 27 mmol/L Blood Gas Base Excess 3.5 mmol/L Blood Gas Oxygen Saturation 97 % Arterial Blood pH 7.46 Arterial Blood Partial Pressure CO2 38 mmHg Arterial Blood Partial Pressure O2 139 mmHg Arterial Blood Oxygen Content 17.5 Vol % Arterial Blood Carboxyhemoglobin 1.1 % Arterial Blood Methemoglobin 1.1 % Blood Gas Hemoglobin 12.7 G/DL Oxygen Delivery Device VENTILATOR Blood Gas Ventilator Setting 12/450/PEEP 5 Blood Gas Inspired Oxygen 40 % Blood Urea Nitrogen 17 MG/DL Creatinine 0.61 MG/DL Random Glucose 246 MG/DL Total Protein 6.3 GM/DL Albumin 2.1 GM/DL Calcium Level 8.5 MG/DL Alkaline Phosphatase 1195 U/L Aspartate Amino Transf (AST/SGOT) 200 U/L Alanine Aminotransferase (ALT/SGPT) 243 U/L Total Bilirubin 0.3 MG/DL Direct Bilirubin 0.1 MG/DL Sodium Level 135 MEQ/L Potassium Level 4.6 MEQ/L Chloride Level 99 MEQ/L Carbon Dioxide Level 27.1 MEQ/L Indirect Bilirubin 0.2 MG/DL Prothrombin Time 10.5 SEC Prothromb Time International Ratio 1.0 RATIO Test 12/18/17 06:42 12/19/17 06:34 12/19/17 08:27 12/22/17 05:13 Iron Level 23 MCG/DL Total Iron Binding Capacity 241 MCG/DL Percent Iron Saturation 9.6 % Total Alkaline Phosphatase 1264 U/L Alkaline Phosphatase Iso-Intestine 0 % Alkaline Phosphatase Iso-Bone 40 % Alkaline Phosphatase Iso-Liver 60 % Alkaline Phosph Iso-Macro Hepatic % Alkaline Phos Isoenzymes Interpret Phenytoin (Dilantin) Level 13.1 MCG/ML Anti-Nuclear Antibody Screen NEG Anti-Smooth Muscle Antibody Negative Hepatitis A IgM Antibody NONREACTIVE Hepatitis B Surface Antigen NONREACTIVE Hepatitis B Core IgM Antibody NONREACTIVE Hepatitis C IgG Antibody NONREACTIVE Immunoglobulin A 207 mg/dL Mitochondria M2 Antibody LESS THAN 20.0 U Endomysial Antibody Titer Endomysial IgA Antibody Tissue Transglutaminase IgG Ab U/mL Tissue Transglutaminase IgA Ab LESS THAN 1 U/mL Celiac Disease Interpretation Test 12/23/17 06:01 12/29/17 09:25 Blood Urea Nitrogen 11 MG/DL 18 MG/DL Creatinine 0.50 MG/DL 0.51 MG/DL Random Glucose 150 MG/DL 234 MG/DL Total Protein 6.2 GM/DL 6.8 GM/DL Albumin 2.2 GM/DL 2.8 GM/DL Calcium Level 8.7 MG/DL 8.9 MG/DL Phosphorus Level 3.6 MG/DL Magnesium Level 2.0 MG/DL Alkaline Phosphatase 1062 U/L 555 U/L Aspartate Amino Transf (AST/SGOT) 56 U/L 28 U/L Alanine Aminotransferase (ALT/SGPT) 120 U/L 42 U/L Total Bilirubin 0.2 MG/DL 0.3 MG/DL Sodium Level 137 MEQ/L 135 MEQ/L Potassium Level 4.4 MEQ/L 4.3 MEQ/L Chloride Level 99 MEQ/L 99 MEQ/L Carbon Dioxide Level 28.9 MEQ/L 28.5 MEQ/L White Blood Count 9.9 TH/MM3 Red Blood Count 3.49 MIL/MM3 Hemoglobin 11.3 GM/DL Hematocrit 33.6 % Mean Corpuscular Volume 96.3 FL Mean Corpuscular Hemoglobin 32.3 PG Mean Corpuscular Hemoglobin Concent 33.6 % Red Cell Distribution Width 14.1 % Platelet Count 415 TH/MM3 Mean Platelet Volume 8.7 FL Neutrophils (%) (Auto) 71.1 % Lymphocytes (%) (Auto) 15.6 % Monocytes (%) (Auto) 10.6 % Eosinophils (%) (Auto) 1.9 % Basophils (%) (Auto) 0.8 % Neutrophils # (Auto) 7.1 TH/MM3 Lymphocytes # (Auto) 1.6 TH/MM3 Monocytes # (Auto) 1.1 TH/MM3 Eosinophils # (Auto) 0.2 TH/MM3 Basophils # (Auto) 0.1 TH/MM3 CBC Comment DIFF FINAL Differential Comment Anion Gap 8 MEQ/L Estimat Glomerular Filtration Rate 121 ML/MIN Objective Remarks GENERAL: NAD, A&Ox0 HEAD: Normocephalic. NECK: Supple, tracheostomy in place. EYES: No scleral icterus. No injection or drainage. CARDIOVASCULAR: Regular rate and rhythm without murmurs, gallops, or rubs. RESPIRATORY: Breath sounds equal bilaterally. No accessory muscle use. GASTROINTESTINAL: Abdomen soft, PEG tube in place. MUSCULOSKELETAL: No cyanosis, or edema. SKIN: Warm and dry. NEURO: Not following commands. Medications and IVs Current Medications Medications (Trade) Dose Ordered Sig/Kenna Route Start Time Stop Time Status Last Admin (NS Flush) 2 ml UNSCH PRN IV FLUSH 11/28/17 16:00 12/22/17 20:31 (NS Flush) 2 ml BID IV FLUSH 11/28/17 21:00 01/07/18 09:53 (Albuterol Neb) 2.5 mg Q2HR NEB PRN INH 11/28/17 16:00 12/13/17 02:48 (Dulcolax Supp) 10 mg DAILY PRN RECTAL 11/28/17 16:00 (Zofran Inj) 4 mg Q6H PRN IV PUSH 11/28/17 16:15 (Heparin Inj) 5,000 units Q8H SQ 11/28/17 18:00 Future hold 01/07/18 09:52 (Flonase Willem Spr) 1 spray BID EACH NARE 11/28/17 21:00 Future Hold (D50w (Vial) Inj) 50 ml UNSCH PRN IV PUSH 11/29/17 07:15 12/18/17 20:24 (Glucagon Inj) 1 mg UNSCH PRN OTHER 11/29/17 07:15 (Tylenol 650 Mg/ 20 ml Liq) 650 mg Q6H PRN NG 11/29/17 10:00 12/09/17 09:24 (NS Flush) DAILY IV FLUSH 11/30/17 09:00 01/07/18 09:56 (NS Flush) UNSCH PRN IV FLUSH 11/29/17 11:15 (Lipitor) 10 mg HS PO 11/29/17 21:00 Future Hold 12/12/17 22:13 (Cerebyx Inj) 200 mgpe Q12HR IV 11/30/17 21:00 Future Hold 12/18/17 21:24 (Duoneb Neb) 1 ampule Q2HR NEB PRN NEB 12/19/17 10:00 (Actigall) 300 mg Q12HR PO 12/21/17 21:00 01/07/18 08:26 (Coreg) 12.5 mg Q12HR PEG 12/29/17 10:00 01/07/18 08:25 (Aspirin Chew) 81 mg DAILY PEG 12/29/17 10:00 01/07/18 08:24 (Pepcid) 20 mg BID PEG 12/29/17 10:00 01/07/18 08:24 (Milk Of Magnesia Liq) 30 ml Q12H PRN PEG 12/29/17 09:30 (Senokot) 17.2 mg Q12H PRN PEG 12/29/17 09:30 (Lactulose Liq) 30 ml DAILY PRN PEG 12/29/17 09:30 (NovoLOG SUPPLEMENTAL SCALE) 1 Q6HR SQ 12/29/17 12:00 01/07/18 12:24 (Lacrilube Opht Oint) 1 applic Q6H PRN EACH EYE 12/29/17 10:30 (Free Water) 250 ml Q6H PEG 12/29/17 10:00 01/07/18 09:53 (Levemir Inj) 12 units Q12H SQ 12/30/17 12:00 01/07/18 12:23 A/P Assessment and Plan (1) Encephalopathy, metabolic ICD Code: G93.41 - Metabolic encephalopathy Status: Acute (2) Encephalopathy ICD Code: G93.40 - Encephalopathy, unspecified (3) Type 1 diabetes ICD Code: E10.9 - Type 1 diabetes mellitus without complications Status: Acute 62-year-old female with long-term tracheostomy and PEG tube secondary to encephalopathy. Etiology for encephalopathy is related to diabetic ketoacidosis related to type 1 diabetes. Respiratory failure and shock are present at admit. 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 Unimproved Likely long-term Continue monitoring neurological status Palliative care following Elevated troponin Chronic systolic heart failure NSTEMI Cardiomyopathy Continue atorvastatin Continue aspirin Most recent ejection fraction 40% Acute hypoxemic respiratory failure Tracheostomy continue oxygenation as needed Continue pulmonary toilet Moderate protein energy malnutrition Elevated LFT's Continue PEG tube feeds Diabetes mellitus type 1 status post DKA. Follow blood sugars Insulin sliding scale Diabetic diet Continue Levemir DVT prophylaxis SCD heparin SQ No changes to anterior assessment. Discharge Planning Palliative care following. her Son Jamin is decision maker. Yovanny Kessler MD January 07, 2018 14:11
[2018-01-08] VITALS (8 sets, daily range): BP systolic 121–152; BP diastolic 67–84; PULSE 72–89; RESP 14–18; TEMP 98.1–99; O2SAT 97–99
[2018-01-08] MEDS: HEPARIN SODIUM - SQ 10,000 UNITS/ML VIAL SQ SCH ×3 (01:42→17:09)
[2018-01-08] MEDS: [UNRECOGNIZED DRUG - REMARK] PEG SCH ×4 (03:53→20:43)
[2018-01-08] MEDS: INSULIN ASPART SUPPLEMENTAL SCALE SQ SCH ×3 (05:26→18:00)
[2018-01-08] MEDS: SODIUM CHLORIDE 0.9% FLUSH 10 ML FLUSH IV FLUSH SCH ×3 (09:00→20:43)
[2018-01-08] MEDS: CARVEDILOL 12.5 MG TAB PEG SCH ×2 (09:09→20:43)
[2018-01-08] MEDS: URSODIOL 300 MG CAP PO SCH ×2 (09:09→20:43)
[2018-01-08] MEDS: FAMOTIDINE 20 MG TAB PEG SCH ×2 (09:09→20:43)
[2018-01-08] MEDS: ASPIRIN 81 MG CHEW TAB PEG SCH (09:09)
[2018-01-08] MEDS: INSULIN DETEMIR 100 UNITS/ML VIAL SQ SCH (12:16)
[2018-01-08] MEDS ORDERED: INSULIN HUMAN REGULAR 1,000 UNITS/10 ML VIAL IV PUSH ONE (13:00)
--- NOTE | 2018-01-08 13:15 | HHI.PR ---
Subjective Remarks Discussed with nurse Miss Ortega today no nausea, vomit or diarrhea but her blood sugar is uncontrolled, given by nurse 12 units Subcutaneous and now her blood sugar increased over 422 mg/dl will give additional 10 units IV and following. continue Long lasting insulin. Objective Vital Signs Date Time Temp Pulse Resp B/P (MAP) Pulse Ox O2 Delivery O2 Flow Rate FiO2 01/08/18 12:00 98.7 74 14 149/72 (97) 98 01/08/18 11:31 100 T-Piece 5.00 28 01/08/18 08:00 98.8 72 14 134/82 (99) 98 01/08/18 03:58 99.0 78 18 137/67 (90) 99 01/08/18 00:00 98.1 72 18 152/81 (104) 99 01/07/18 20:20 99 Humidified 4.00 28 01/07/18 19:27 98.3 72 18 128/70 (89) 99 01/07/18 16:00 99.1 85 18 146/79 (101) 98 I/O 01/07/18 01/07/18 01/07/18 01/08/18 01/08/18 01/08/18 07:00 15:00 23:00 07:00 15:00 23:00 Intake Total 971 ml 950 ml 425 ml Output Total 700 ml 700 ml Balance 971 ml 250 ml -275 ml Tube Feeding 471 ml 450 ml 425 ml Other 500 ml 500 ml Output Urine Total 700 ml 700 ml # Voids 3 1 # Bowel Movements 1 1 2 Imaging Last Impressions Chest X-Ray 12/23/17 0600 Signed Impressions: Service Date/Time: Saturday, December 23, 2017 04:28 - CONCLUSION: Consolidations and pleural effusions are unchanged. Tracheostomy tube in good position. Landon Graham MD Liver Ultrasound 12/22/17 0000 Signed Impressions: Service Date/Time: Friday, December 22, 2017 09:40 - CONCLUSION: 1. Liver demonstrates no acute finding. However, there is a small volume of free fluid in the abdomen in a perihepatic location. 2. Persistent but overall decreased gallbladder wall thickening. 3. Bilateral pleural effusions. Uziel Troy MD Hepatobiliary Scan Nuclear Medicine 12/18/17 0000 Signed Impressions: Service Date/Time: Monday, December 18, 2017 10:53 - CONCLUSION: 1. Normal uptake and excretion of radiotracer. Dimitri Bird MD ADDENDUM: The there is a air in the report under the medication sections it should read cholecystokinin was administered by slow infusion over 8 minutes beginning at the 60 minute jyoti. Dimitri Bird MD Abdomen/Pelvis CT 12/17/17 0000 Signed Impressions: Service Date/Time: Sunday, December 17, 2017 15:44 - CONCLUSION: 1. There is a trace amount of free air in the upper abdomen anterior to left lobe of the liver and adjacent to the stomach. While nonspecific, this could be related to the G-tube. Suggest correlating with the clinical examination for signs of acute abdomen which would indicate a more concerning cause. 2. Moderately distended ascending and transverse colon. However, no anatomic obstruction is visualized. 3. Signs of fluid overload including bilateral pleural effusions, anasarca, periportal edema, and small volume of free fluid in the abdomen and pelvis. Uziel Troy MD Upper Extremity Ultrasound 12/15/17 Signed Impressions: Service Date/Time: Friday, December 15, 2017 13:57 - CONCLUSION: Nonocclusive thrombus within left internal jugular vein. The remaining venous structures in the left upper extremity appear patent. Uziel Thomas MD Neck CTA 12/11/17 Signed Impressions: Service Date/Time: Monday, December 11, 2017 23:08 - CONCLUSION: No carotid stenosis. Ac Davis MD Head CTA 12/11/17 0000 Signed Impressions: Service Date/Time: Monday, December 11, 2017 23:08 - CONCLUSION: 1. No large vessel stenosis or aneurysm. Ac Davis MD Brain MRI 12/11/17 0000 Signed Impressions: Service Date/Time: Monday, December 11, 2017 11:12 - CONCLUSION: 1. Faint diffusion restriction predominately along the high right parietal convexity with minimal diffusion restriction on the left. Pattern is somewhat unusual for anoxia with the asymmetry. Possible embolic event. CTA of the cervical and intracranial vessels to be performed for further characterization. 2. Chronic changes with some periventricular small vessel ischemic demyelination. 3. Mild ventricular prominence. In the appropriate clinical setting, findings could represent normal pressure hydrocephalus. 4. Bilateral mastoiditis. Mild chronic sinus disease in the sphenoid bilaterally. Dani Titus MD Gall Bladder Ultrasound 12/03/17 0000 Signed Impressions: Service Date/Time: Sunday, December 03, 2017 07:59 - CONCLUSION: 1. Ascites and bilateral pleural effusions. 2. Mildly distended gallbladder without evidence of wall thickening or cholelithiasis. 3. Otherwise unremarkable exam. Boo Cartwright MD Lumbar Puncture Fluoroscopy 12/02/17 0000 Signed Impressions: Service Date/Time: Saturday, December 02, 2017 15:28 - CONCLUSION: Uncomplicated fluoroscopically guided lumbar puncture. Aly Leigh MD Renal Ultrasound 11/29/17 1656 Signed Impressions: Service Date/Time: Wednesday, November 29, 2017 13:16 - CONCLUSION: 1. Both kidneys are sonographically normal without hydronephrosis or nephrolithiasis. 2. Very abnormal appearance of the gallbladder with mural thickening and minimal pericholecystic fluid Dani Titus MD Head CT 11/28/17 0000 Signed Impressions: Service Date/Time: November 15:46 - CONCLUSION: 1. Ventriculomegaly suggesting central cerebral atrophy versus hydrocephalus. Clinical correlation is recommended. 2. No acute infarct, acute hemorrhage, midline shift or extra-axial fluid collections. Dev Christopher MD Procedures PEG tube placement Tracheostomy Other Results Laboratory Tests Test 11/28/17 14:42 11/28/17 15:07 11/28/17 15:28 11/28/17 16:45 Blood Gas Liter Flow 4 L/M Urine Random Creatinine 25.6 MG/DL Urine Random Sodium 48 MEQ/L Total Creatine Kinase 82 U/L Amylase Level 13 U/L Lipase 63 U/L Salicylates Level 4.1 MG/DL Urine Opiates Screen NEG Urine Barbiturates Screen NEG Urine Amphetamines Screen NEG Urine Benzodiazepines Screen NEG Urine Cocaine Screen NEG Urine Cannabinoids Screen NEG Ethyl Alcohol Level LESS THAN 3 MG/DL Urine Collection Type CATH Urine Color YELLOW Urine Turbidity CLEAR Urine pH 5.0 Urine Specific [place] 1.020 Urine Protein NEG mg/dL Urine Glucose (UA) 1000 OR GREATER mg/dL Urine Ketones 80 OR GREATER mg/dL Urine Occult Blood TRACE Urine Nitrite NEG Urine Bilirubin NEG Urine Urobilinogen 0.2 MG/DL Urine Leukocyte Esterase NEG Urine RBC 0-3 /hpf Urine Squamous Epithelial Cells 0-5 /hpf Microscopic Urinalysis Comment CULT NOT INDICATED Urine Eosinophils NONE SEEN /HPF Urine Collection Time 15:28 Venous Blood pH 7.04 Venous Blood Partial Pressure CO2 19 mmHg Venous Blood Partial Pressure O2 56 mmHg Venous Blood HCO3 5 mmol/L Venous Blood Oxygen Saturation 76 % Venous Blood Oxygen Content 12.0 Vol % Venous Blood Base Excess -23.9 mmol/L Test 11/28/17 18:55 11/29/17 07:05 11/29/17 10:30 11/29/17 17:00 Thyroid Stimulating Hormone 3rd Gen 0.383 uIU/ML Acetaminophen Level 4.9 MCG/ML Nasal Screen MRSA (PCR) MRSA NOT DETECTED Bronchoalveolar Lavage WBC 58 /MM3 Bronchoalveolar Lavage RBC 1616 /MM3 Bronchoalveolar Lavage Neutrophils 82 % Bronchoalveolar Lavage Lymphocytes 17 % Bronchoalveolar Lavage Histiocytes 1 % Lavage Fluid Total Volume 14.0 ML Lavage Fluid Total WBC Count 0.800 MILLION B-Hydroxybutyrate 0.23 MMOL/L Test 11/30/17 04:55 12/01/17 05:17 12/02/17 04:10 12/02/17 15:29 Hemoglobin A1c 7.9 % Troponin I 2.80 NG/ML Triglycerides Level 50 MG/DL Cholesterol Level 95 MG/DL LDL Cholesterol 10 MG/DL HDL Cholesterol 75.3 MG/DL Cholesterol/HDL Ratio 1.26 RATIO Lactic Acid Level 1.9 mmol/L Differential Total Cells Counted 100 Neutrophils % (Manual) 78 % Band Neutrophils % 5 % Lymphocytes % 13 % Monocytes % 3 % Eosinophils % 1 % Neutrophils # (Manual) 12.0 TH/MM3 Platelet Estimate LOW Platelet Morphology Comment NORMAL Red Cell Morphology Comment NORMAL Activated Partial Thromboplast Time 27.7 SEC CSF Volume (Tube 1) 2.5 ML CSF Supernatant Color (tube 1) CLEAR CSF Gross Blood (Tube 1) 0 CSF Volume (Tube 2) 2.8 ML CSF Supernatant Color (tube 2) CLEAR CSF Gross Blood (Tube 2) 0 CSF Volume (Tube 3) 3.0 ML CSF Supernatant Color (tube 3) CLEAR CSF Gross Blood (Tube 3) 0 CSF Volume (Tube 4) 2.5 ML CSF Supernatant Color (tube 4) CLEAR CSF Gross Blood (Tube 4) 0 CSF WBC (Tube 4) 6 /MM3 CSF RBC (Tube 4) 28 /MM3 CSF Neutrophils 2 % CSF Lymphocytes 96 % CSF Monocytes 2 % CSF Glucose 124 MG/DL CSF Total Protein 32.1 MG/DL CSF Myelin Basic Protein LESS THAN 2.0 mcg/L CSF Angiotensin Converting Enzyme LESS THAN 5 U/L CSF VDRL NON-REACTIVE CSF Cryptococcus Antigen NOT DETECTED CSF Cryptococcus Antigen Confirm Herpes Simplex Virus I DNA (PCR) Negative Herpes Simplex Virus II DNA (PCR) Negative Test 12/03/17 08:30 12/04/17 04:55 12/06/17 08:30 12/08/17 11:50 Random Cortisol 17.5 MCG/DL Protein Corrected Calcium 8.5 MG/DL Ammonia 22 MCMOL/L Vancomycin Level Trough 9.4 MCG/ML Stool C. difficile Toxin (PCR) NEGATIVE Stl C. difficile Toxin Epiderm 027 PRESUMPTIVE NEGATIVE Test 12/09/17 04:20 12/13/17 07:55 12/16/17 06:34 12/17/17 05:22 Phenobarbital Level 24.1 MCG/ML Blood Gas Puncture Site RT RADIAL Blood Gas Patient Temperature 37.0 Blood Gas HCO3 27 mmol/L Blood Gas Base Excess 3.5 mmol/L Blood Gas Oxygen Saturation 97 % Arterial Blood pH 7.46 Arterial Blood Partial Pressure CO2 38 mmHg Arterial Blood Partial Pressure O2 139 mmHg Arterial Blood Oxygen Content 17.5 Vol % Arterial Blood Carboxyhemoglobin 1.1 % Arterial Blood Methemoglobin 1.1 % Blood Gas Hemoglobin 12.7 G/DL Oxygen Delivery Device VENTILATOR Blood Gas Ventilator Setting 12/450/PEEP 5 Blood Gas Inspired Oxygen 40 % Blood Urea Nitrogen 17 MG/DL Creatinine 0.61 MG/DL Random Glucose 246 MG/DL Total Protein 6.3 GM/DL Albumin 2.1 GM/DL Calcium Level 8.5 MG/DL Alkaline Phosphatase 1195 U/L Aspartate Amino Transf (AST/SGOT) 200 U/L Alanine Aminotransferase (ALT/SGPT) 243 U/L Total Bilirubin 0.3 MG/DL Direct Bilirubin 0.1 MG/DL Sodium Level 135 MEQ/L Potassium Level 4.6 MEQ/L Chloride Level 99 MEQ/L Carbon Dioxide Level 27.1 MEQ/L Indirect Bilirubin 0.2 MG/DL Prothrombin Time 10.5 SEC Prothromb Time International Ratio 1.0 RATIO Test 12/18/17 06:42 12/19/17 06:34 12/19/17 08:27 12/22/17 05:13 Iron Level 23 MCG/DL Total Iron Binding Capacity 241 MCG/DL Percent Iron Saturation 9.6 % Total Alkaline Phosphatase 1264 U/L Alkaline Phosphatase Iso-Intestine 0 % Alkaline Phosphatase Iso-Bone 40 % Alkaline Phosphatase Iso-Liver 60 % Alkaline Phosph Iso-Macro Hepatic % Alkaline Phos Isoenzymes Interpret Phenytoin (Dilantin) Level 13.1 MCG/ML Anti-Nuclear Antibody Screen NEG Anti-Smooth Muscle Antibody Negative Hepatitis A IgM Antibody NONREACTIVE Hepatitis B Surface Antigen NONREACTIVE Hepatitis B Core IgM Antibody NONREACTIVE Hepatitis C IgG Antibody NONREACTIVE Immunoglobulin A 207 mg/dL Mitochondria M2 Antibody LESS THAN 20.0 U Endomysial Antibody Titer Endomysial IgA Antibody Tissue Transglutaminase IgG Ab U/mL Tissue Transglutaminase IgA Ab LESS THAN 1 U/mL Celiac Disease Interpretation Test 12/23/17 06:01 12/29/17 09:25 Blood Urea Nitrogen 11 MG/DL 18 MG/DL Creatinine 0.50 MG/DL 0.51 MG/DL Random Glucose 150 MG/DL 234 MG/DL Total Protein 6.2 GM/DL 6.8 GM/DL Albumin 2.2 GM/DL 2.8 GM/DL Calcium Level 8.7 MG/DL 8.9 MG/DL Phosphorus Level 3.6 MG/DL Magnesium Level 2.0 MG/DL Alkaline Phosphatase 1062 U/L 555 U/L Aspartate Amino Transf (AST/SGOT) 56 U/L 28 U/L Alanine Aminotransferase (ALT/SGPT) 120 U/L 42 U/L Total Bilirubin 0.2 MG/DL 0.3 MG/DL Sodium Level 137 MEQ/L 135 MEQ/L Potassium Level 4.4 MEQ/L 4.3 MEQ/L Chloride Level 99 MEQ/L 99 MEQ/L Carbon Dioxide Level 28.9 MEQ/L 28.5 MEQ/L White Blood Count 9.9 TH/MM3 Red Blood Count 3.49 MIL/MM3 Hemoglobin 11.3 GM/DL Hematocrit 33.6 % Mean Corpuscular Volume 96.3 FL Mean Corpuscular Hemoglobin 32.3 PG Mean Corpuscular Hemoglobin Concent 33.6 % Red Cell Distribution Width 14.1 % Platelet Count 415 TH/MM3 Mean Platelet Volume 8.7 FL Neutrophils (%) (Auto) 71.1 % Lymphocytes (%) (Auto) 15.6 % Monocytes (%) (Auto) 10.6 % Eosinophils (%) (Auto) 1.9 % Basophils (%) (Auto) 0.8 % Neutrophils # (Auto) 7.1 TH/MM3 Lymphocytes # (Auto) 1.6 TH/MM3 Monocytes # (Auto) 1.1 TH/MM3 Eosinophils # (Auto) 0.2 TH/MM3 Basophils # (Auto) 0.1 TH/MM3 CBC Comment DIFF FINAL Differential Comment Anion Gap 8 MEQ/L Estimat Glomerular Filtration Rate 121 ML/MIN Objective Remarks GENERAL: NAD, A&Ox0 HEAD: Normocephalic. NECK: Supple, tracheostomy in place. EYES: No scleral icterus. No injection or drainage. CARDIOVASCULAR: Regular rate and rhythm without murmurs, gallops, or rubs. RESPIRATORY: Breath sounds equal bilaterally. No accessory muscle use. GASTROINTESTINAL: Abdomen soft, PEG tube in place. MUSCULOSKELETAL: No cyanosis, or edema. SKIN: Warm and dry. NEURO: Not following commands. Medications and IVs Current Medications Medications (Trade) Dose Ordered Sig/Kenna Route Start Time Stop Time Status Last Admin (NS Flush) 2 ml UNSCH PRN IV FLUSH 11/28/17 16:00 12/22/17 20:31 (NS Flush) 2 ml BID IV FLUSH 11/28/17 21:00 01/08/18 09:00 (Albuterol Neb) 2.5 mg Q2HR NEB PRN INH 11/28/17 16:00 12/13/17 02:48 (Dulcolax Supp) 10 mg DAILY PRN RECTAL 11/28/17 16:00 (Zofran Inj) 4 mg Q6H PRN IV PUSH 11/28/17 16:15 (Heparin Inj) 5,000 units Q8H SQ 11/28/17 18:00 Future hold 01/08/18 09:10 (Flonase Willem Spr) 1 spray BID EACH NARE 11/28/17 21:00 Future Hold (D50w (Vial) Inj) 50 ml UNSCH PRN IV PUSH 11/29/17 07:15 12/18/17 20:24 (Glucagon Inj) 1 mg UNSCH PRN OTHER 11/29/17 07:15 (Tylenol 650 Mg/ 20 ml Liq) 650 mg Q6H PRN NG 11/29/17 10:00 12/09/17 09:24 (NS Flush) DAILY IV FLUSH 11/30/17 09:00 01/08/18 09:00 (NS Flush) UNSCH PRN IV FLUSH 11/29/17 11:15 (Lipitor) 10 mg HS PO 11/29/17 21:00 Future Hold 12/12/17 22:13 (Cerebyx Inj) 200 mgpe Q12HR IV 11/30/17 21:00 Future Hold 12/18/17 21:24 (Duoneb Neb) 1 ampule Q2HR NEB PRN NEB 12/19/17 10:00 (Actigall) 300 mg Q12HR PO 12/21/17 21:00 01/08/18 09:09 (Coreg) 12.5 mg Q12HR PEG 12/29/17 10:00 01/08/18 09:09 (Aspirin Chew) 81 mg DAILY PEG 12/29/17 10:00 01/08/18 09:09 (Pepcid) 20 mg BID PEG 12/29/17 10:00 01/08/18 09:09 (Milk Of Magnesia Liq) 30 ml Q12H PRN PEG 12/29/17 09:30 (Senokot) 17.2 mg Q12H PRN PEG 12/29/17 09:30 (Lactulose Liq) 30 ml DAILY PRN PEG 12/29/17 09:30 (NovoLOG SUPPLEMENTAL SCALE) 1 Q6HR SQ 12/29/17 12:00 01/08/18 12:17 (Lacrilube Opht Oint) 1 applic Q6H PRN EACH EYE 12/29/17 10:30 (Free Water) 250 ml Q6H PEG 12/29/17 10:00 01/08/18 09:10 (Levemir Inj) 12 units Q12H SQ 12/30/17 12:00 01/08/18 12:16 A/P Assessment and Plan (1) Encephalopathy, metabolic ICD Code: G93.41 - Metabolic encephalopathy Status: Acute (2) Encephalopathy ICD Code: G93.40 - Encephalopathy, unspecified (3) Type 1 diabetes ICD Code: E10.9 - Type 1 diabetes mellitus without complications Status: Acute 62-year-old female with long-term tracheostomy and PEG tube secondary to encephalopathy. Etiology for encephalopathy is related to diabetic ketoacidosis related to type 1 diabetes. Respiratory failure and shock are present at admit. 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 Unimproved Likely long-term Continue monitoring neurological status Palliative care following Elevated troponin Chronic systolic heart failure NSTEMI Cardiomyopathy Continue atorvastatin Continue aspirin Most recent ejection fraction 40% Acute hypoxemic respiratory failure Tracheostomy continue oxygenation as needed Continue pulmonary toilet Moderate protein energy malnutrition Elevated LFT's Continue PEG tube feeds Diabetes mellitus type 1 status post DKA. has Levemir scheduled every 12 hours receiving at 12 PM and Midnight, also at this time uncontrolled she has sliding scale every six hours, received 12 units of Regular insulin SQ and will give 10 units IV for blood sugar in 422 mg/dl. and following. DVT prophylaxis SCD heparin SQ Discharge Planning Palliative care following. her Son Jamin is decision maker. Yovanny Kessler MD January 08, 2018 13:15
[2018-01-08 15:56] LABS: BICARBONATE 27.4 MEQ/L (21.0-32.0); CALCIUM 9.8 MG/DL (8.5-10.1); CREATININE 0.92 MG/DL (0.50-1.00)
[2018-01-09] VITALS: BP 129/72; PULSE 90; RESP 19; TEMP 98.6; O2SAT 97
[2018-01-09] MEDS: HEPARIN SODIUM - SQ 10,000 UNITS/ML VIAL SQ SCH ×3 (02:18→18:10)
[2018-01-09 04:00] VITALS: BP 153/76; PULSE 76; RESP 18; TEMP 98.8; O2SAT 98
[2018-01-09] MEDS: [UNRECOGNIZED DRUG - REMARK] PEG SCH ×4 (04:00→21:55)
[2018-01-09] MEDS: INSULIN ASPART SUPPLEMENTAL SCALE SQ SCH ×3 (06:00→12:00)
[2018-01-09 08:00] VITALS: BP 139/78; PULSE 71; RESP 16; TEMP 99; O2SAT 99
[2018-01-09] MEDS: URSODIOL 300 MG CAP PO SCH ×2 (08:45→21:54)
[2018-01-09] MEDS: FAMOTIDINE 20 MG TAB PEG SCH ×2 (08:45→21:54)
[2018-01-09] MEDS: ASPIRIN 81 MG CHEW TAB PEG SCH (08:45)
[2018-01-09] MEDS: CARVEDILOL 12.5 MG TAB PEG SCH ×2 (08:45→21:54)
[2018-01-09] MEDS: SODIUM CHLORIDE 0.9% FLUSH 10 ML FLUSH IV FLUSH SCH ×3 (08:46→21:55)
[2018-01-09 12:00] VITALS: BP 130/68; PULSE 78; RESP 16; TEMP 98.6; O2SAT 98
[2018-01-09] MEDS: INSULIN DETEMIR 100 UNITS/ML VIAL SQ SCH ×2 (12:00)
--- NOTE | 2018-01-09 14:45 | HHI.PR ---
Subjective Remarks Nursing denies any deterioration since last night. Patient will occasionally smile per nursing. Otherwise no new issues. Tolerating tube feeds well. Objective Vital Signs Date Time Temp Pulse Resp B/P (MAP) Pulse Ox O2 Delivery O2 Flow Rate FiO2 01/09/18 04:00 98.8 76 18 153/76 (101) 98 01/09/18 00:00 98.6 90 19 129/72 (91) 97 01/08/18 21:06 97 T-piece 28 01/08/18 20:00 98.6 78 16 121/71 (88) 99 01/08/18 20:00 100 Humidified 5.00 28 01/08/18 16:41 99 Trach Collar 5.00 28 01/08/18 16:00 98.7 89 14 136/84 (101) 99 I/O 01/08/18 01/08/18 01/08/18 01/09/18 01/09/18 01/09/18 07:00 15:00 23:00 07:00 15:00 23:00 Intake Total 425 ml 1050 ml 964 ml Output Total 700 ml Balance -275 ml 1050 ml 964 ml Tube Feeding 425 ml 450 ml 464 ml Other 600 ml 500 ml Output Urine Total 700 ml # Voids 3 3 # Bowel Movements 2 1 1 Result Diagram: 01/08/18 1435 Procedures PEG tube placement Tracheostomy Objective Remarks Patient will occasionally smile and turn her face when her name is called but she does not make direct eye contact. She does not follow commands with her hands. Tracheostomy in place, trachea is uncapped A/P Assessment and Plan 62-year-old female with long-term tracheostomy and PEG tube secondary to encephalopathy. Etiology for encephalopathy is related to diabetic ketoacidosis related to type 1 diabetes. Respiratory failure and shock are present at admit. 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 Unimproved Likely long-term Continue monitoring neurological status Palliative care following Elevated troponin Chronic systolic heart failure NSTEMI Cardiomyopathy Continue atorvastatin Continue aspirin Most recent ejection fraction 40% Acute hypoxemic respiratory failure Tracheostomy continue oxygenation as needed Continue pulmonary toilet Moderate protein energy malnutrition Elevated LFT's Continue PEG tube feeds Diabetes mellitus type 1 status post DKA. Better controlled, continue Levemir every 12 hours, continue sliding scale every 6 hours for supplemental coverage DVT prophylaxis SCD heparin SQ Discharge Planning Palliative care is following son expected to make decision in next week or so for withdrawal life support decision Aleks Pepe MD January 09, 2018 14:45
[2018-01-09 16:00] VITALS: BP 143/84; PULSE 68; RESP 16; TEMP 98.8; O2SAT 100
[2018-01-09 21:43] VITALS: BP 141/78; PULSE 71; RESP 16; TEMP 98.6; O2SAT 99
[2018-01-10] VITALS (10 sets, daily range): BP systolic 137–162; BP diastolic 74–99; PULSE 68–89; RESP 16–20; TEMP 98.1–99.6; O2SAT 97–100
[2018-01-10] MEDS: INSULIN DETEMIR 100 UNITS/ML VIAL SQ SCH ×3 (00:57→23:54)
[2018-01-10] MEDS: INSULIN ASPART SUPPLEMENTAL SCALE SQ SCH ×5 (00:57→23:54)
[2018-01-10] MEDS: HEPARIN SODIUM - SQ 10,000 UNITS/ML VIAL SQ SCH ×3 (01:00→17:45)
[2018-01-10] MEDS: [UNRECOGNIZED DRUG - REMARK] PEG SCH ×4 (03:57→21:20)
[2018-01-10] MEDS: SODIUM CHLORIDE 0.9% FLUSH 10 ML FLUSH IV FLUSH SCH ×3 (09:00→21:20)
[2018-01-10] MEDS: URSODIOL 300 MG CAP PO SCH ×2 (09:17→21:20)
[2018-01-10] MEDS: FAMOTIDINE 20 MG TAB PEG SCH ×2 (09:18→21:20)
[2018-01-10] MEDS: CARVEDILOL 12.5 MG TAB PEG SCH ×2 (09:18→21:20)
[2018-01-10] MEDS: ASPIRIN 81 MG CHEW TAB PEG SCH (09:18)
--- NOTE | 2018-01-10 10:04 | HHI.PR ---
Subjective Remarks More interactive recently. No distress. 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 Objective Vital Signs Date Time Temp Pulse Resp B/P (MAP) Pulse Ox O2 Delivery O2 Flow Rate FiO2 01/10/18 08:24 97 Trach Collar 28 01/10/18 08:00 98.4 75 20 162/99 (120) 98 01/10/18 07:00 100 Trach Collar 5.00 28 01/10/18 04:29 98.9 89 16 153/85 (107) 99 01/10/18 00:27 98.1 73 16 137/83 (101) 100 01/10/18 00:20 98 Trach Collar 5.00 28 01/09/18 21:43 98.6 71 16 141/78 (99) 99 01/09/18 20:30 99 Trach Collar 5.00 28 Humidified 01/09/18 16:00 98.8 68 16 143/84 (103) 100 01/09/18 12:00 98.6 78 16 130/68 (88) 98 I/O 01/09/18 01/09/18 01/09/18 01/10/18 01/10/18 01/10/18 07:00 15:00 23:00 07:00 15:00 23:00 Intake Total 964 ml 980 ml 980 ml Output Total 500 ml 900 ml Balance 964 ml 480 ml 80 ml Tube Feeding 464 ml 480 ml 480 ml Other 500 ml 500 ml 500 ml Output Urine Total 500 ml 900 ml # Voids 3 1 # Bowel Movements 1 1 Result Diagram: 01/08/18 1435 Procedures PEG tube placement Tracheostomy Objective Remarks GENERAL: NAD, A&Ox0 HEAD: Normocephalic. NECK: Supple, trachea midline. No lymphadenopathy. EYES: No scleral icterus. No injection or drainage. CARDIOVASCULAR: Regular rate and rhythm without murmurs, gallops, or rubs. RESPIRATORY: Breath sounds equal bilaterally. No accessory muscle use. GASTROINTESTINAL: Abdomen soft, non-tender, nondistended. MUSCULOSKELETAL: No cyanosis, or edema. SKIN: Warm and dry. NEURO: No focal neurological deficitis. A/P Problem List: (1) Encephalopathy, metabolic ICD Code: G93.41 - Metabolic encephalopathy Status: Acute (2) Encephalopathy ICD Code: G93.40 - Encephalopathy, unspecified (3) Type 1 diabetes ICD Code: E10.9 - Type 1 diabetes mellitus without complications Status: Acute Assessment and Plan 62-year-old female with long-term tracheostomy and PEG tube secondary to encephalopathy. Etiology for encephalopathy is related to diabetic ketoacidosis related to type 1 diabetes. Respiratory failure and shock are present at admit. Patient appears stable today. No acute changes overnight. Continue to monitor patient clinically. Advance tracheostomy as tolerated. Encephalopathy Unimproved Likely long-term Continue monitoring neurological status Palliative care following Elevated troponin Chronic systolic heart failure NSTEMI Cardiomyopathy Continue atorvastatin Continue aspirin Most recent ejection fraction 40% Acute hypoxemic respiratory failure Tracheostomy continue oxygenation as needed Continue pulmonary toilet Continue tracheostomy care Moderate protein energy malnutrition Elevated LFT's Continue PEG tube feeds Diabetes mellitus type 1 Follow blood sugars Insulin sliding scale Diabetic diet Continue Levemir DVT prophylaxis SCD heparin SQ Discharge Planning Palliative care following. Armando is considering withdrawal of care in 2 weeks if no improvement is seen, and based on pending repeat imaging. Jamin Roberts is the decision-maker. Dimitri Peck MD January 10, 2018 10:04
[2018-01-10] MEDS ORDERED: MORPHINE SULFATE 4 MG/ML INJ IV PUSH PRN (21:00)
[2018-01-11] VITALS (8 sets, daily range): BP systolic 124–161; BP diastolic 69–90; PULSE 69–95; RESP 16–20; TEMP 98.3–99.3; O2SAT 95–99
[2018-01-11] MEDS: HEPARIN SODIUM - SQ 10,000 UNITS/ML VIAL SQ SCH ×3 (02:11→18:00)
[2018-01-11] MEDS: [UNRECOGNIZED DRUG - REMARK] PEG SCH ×4 (03:01→21:37)
[2018-01-11] MEDS: INSULIN ASPART SUPPLEMENTAL SCALE SQ SCH ×3 (05:24→18:00)
[2018-01-11] MEDS: FAMOTIDINE 20 MG TAB PEG SCH ×2 (09:00→21:36)
[2018-01-11] MEDS: SODIUM CHLORIDE 0.9% FLUSH 10 ML FLUSH IV FLUSH SCH ×3 (09:00→21:00)
[2018-01-11] MEDS: ASPIRIN 81 MG CHEW TAB PEG SCH (09:00)
[2018-01-11] MEDS: CARVEDILOL 12.5 MG TAB PEG SCH ×2 (09:00→21:36)
--- NOTE | 2018-01-11 09:31 | HHI.PR ---
Subjective Remarks Gradual weight loss has been observed for the past 3 weeks. Plan for tracheostomy revision today. Patient is not in pain. Objective Vital Signs Date Time Temp Pulse Resp B/P (MAP) Pulse Ox O2 Delivery O2 Flow Rate FiO2 01/11/18 08:06 99 Trach Collar 28 01/11/18 08:00 98.3 78 16 161/90 (113) 99 01/11/18 07:00 100 Trach Collar 5.00 28 01/11/18 04:22 99.3 69 16 138/71 (93) 99 01/11/18 00:00 98.8 81 16 137/73 (94) 98 01/10/18 20:00 16 01/10/18 19:44 99.6 84 16 158/89 (112) 99 01/10/18 19:25 99 Trach Collar 5.00 28 01/10/18 19:00 100 Trach Collar 5.00 28 01/10/18 16:00 99.0 68 16 139/74 (95) 99 01/10/18 12:00 99.0 88 16 155/88 (110) 99 I/O 01/10/18 01/10/18 01/10/18 01/11/18 01/11/18 01/11/18 07:00 15:00 23:00 07:00 15:00 23:00 Intake Total 980 ml 980 ml 989 ml Output Total 900 ml 800 ml 800 ml Balance 80 ml 180 ml 189 ml Tube Feeding 480 ml 480 ml 489 ml Other 500 ml 500 ml 500 ml Output Urine Total 900 ml 800 ml 800 ml Stool Total 0 ml 0 ml Result Diagram: 01/08/18 1435 Procedures PEG tube placement Tracheostomy Objective Remarks GENERAL: NAD, A&Ox1 HEAD: Normocephalic. NECK: Supple, trachea midline. No lymphadenopathy. EYES: No scleral icterus. No injection or drainage. CARDIOVASCULAR: Regular rate and rhythm without murmurs, gallops, or rubs. RESPIRATORY: Breath sounds equal bilaterally. No accessory muscle use. GASTROINTESTINAL: Abdomen soft, non-tender, nondistended. MUSCULOSKELETAL: No cyanosis, or edema. SKIN: Warm and dry. NEURO: No focal neurological deficitis. A/P Problem List: (1) Encephalopathy, metabolic ICD Code: G93.41 - Metabolic encephalopathy Status: Acute (2) Encephalopathy ICD Code: G93.40 - Encephalopathy, unspecified (3) Type 1 diabetes ICD Code: E10.9 - Type 1 diabetes mellitus without complications Status: Acute Assessment and Plan 62-year-old female with long-term tracheostomy and PEG tube secondary to encephalopathy. Etiology for encephalopathy is related to diabetic ketoacidosis related to type 1 diabetes. Respiratory failure and shock are present at admit. Morphine as needed for tracheostomy revision today. Feeding rate increased and 40 mL/h to 50 mL/h. Continue to monitor her weight. Patient appears stable today. No acute changes overnight. Continue to monitor patient clinically. Advance tracheostomy as tolerated. Encephalopathy Unimproved Likely long-term Continue monitoring neurological status Palliative care following Elevated troponin Chronic systolic heart failure NSTEMI Cardiomyopathy Continue atorvastatin Continue aspirin Most recent ejection fraction 40% Acute hypoxemic respiratory failure Tracheostomy continue oxygenation as needed Continue pulmonary toilet Continue tracheostomy care Moderate protein energy malnutrition Elevated LFT's Continue PEG tube feeds Diabetes mellitus type 1 Follow blood sugars Insulin sliding scale Diabetic diet Continue Levemir DVT prophylaxis SCD heparin SQ Discharge Planning Palliative care following. Armando is considering withdrawal of care in 2 weeks if no improvement is seen, and based on pending repeat imaging. Jamin Roberts is the decision-maker. Dimitri Peck MD January 11, 2018 09:31
[2018-01-11] MEDS: URSODIOL 300 MG CAP PO SCH ×2 (11:20→21:36)
[2018-01-11] MEDS: INSULIN DETEMIR 100 UNITS/ML VIAL SQ SCH (12:00)
[2018-01-11] MEDS ORDERED: DEXTROSE 50% IN WATER 50 ML SYRINGE ONE (19:25)
[2018-01-12] VITALS (7 sets, daily range): BP systolic 147–159; BP diastolic 76–90; PULSE 82–96; RESP 18–20; TEMP 98.7–99.8; O2SAT 97–100
[2018-01-12] MEDS: INSULIN DETEMIR 100 UNITS/ML VIAL SQ SCH ×2 (00:08→12:32)
[2018-01-12] MEDS: HEPARIN SODIUM - SQ 10,000 UNITS/ML VIAL SQ SCH ×3 (01:55→17:19)
[2018-01-12] MEDS: [UNRECOGNIZED DRUG - REMARK] PEG SCH ×4 (03:36→20:15)
[2018-01-12] MEDS: INSULIN ASPART SUPPLEMENTAL SCALE SQ SCH ×4 (06:22→17:19)
[2018-01-12] MEDS: SODIUM CHLORIDE 0.9% FLUSH 10 ML FLUSH IV FLUSH SCH ×3 (09:00→20:16)
[2018-01-12] MEDS: CARVEDILOL 12.5 MG TAB PEG SCH ×2 (09:46→20:15)
[2018-01-12] MEDS: FAMOTIDINE 20 MG TAB PEG SCH ×2 (09:46→20:15)
[2018-01-12] MEDS: ASPIRIN 81 MG CHEW TAB PEG SCH (09:46)
[2018-01-12] MEDS: URSODIOL 300 MG CAP PO SCH ×2 (09:46→20:15)
--- NOTE | 2018-01-12 10:20 | HHI.PR ---
Subjective Remarks Nursing denies any deterioration since last night. Patient much more visually responsive today when her name is called out, still does not track. Objective Vital Signs Date Time Temp Pulse Resp B/P (MAP) Pulse Ox O2 Delivery O2 Flow Rate FiO2 01/12/18 04:00 98.9 89 18 155/85 (108) 99 01/12/18 00:00 98.7 84 20 159/78 (105) 99 01/11/18 21:46 99 Trach Collar 5.00 28 01/11/18 20:00 98.9 89 18 144/70 (94) 98 01/11/18 19:00 98 Trach Collar 5.00 28 01/11/18 16:00 98.8 95 20 134/69 (90) 99 01/11/18 12:00 98.9 74 16 124/70 (88) 95 I/O 01/11/18 01/11/18 01/11/18 01/12/18 01/12/18 01/12/18 07:00 15:00 23:00 07:00 15:00 23:00 Intake Total 989 ml 800 ml 1066 ml Output Total 800 ml 450 ml Balance 189 ml 800 ml 616 ml Tube Feeding 489 ml 550 ml 566 ml Tube Irrigant 250 ml Other 500 ml 500 ml Output Urine Total 800 ml 450 ml Stool Total 0 ml # Bowel Movements 0 Result Diagram: 01/08/18 1435 Procedures PEG tube placement Tracheostomy Objective Remarks Patient turns her face and responds more probably today with smiling. Still nonverbal otherwise. Does not track with the fingers. Does not follow commands. A/P Assessment and Plan 62-year-old female with long-term tracheostomy and PEG tube secondary to encephalopathy. Etiology for encephalopathy is related to diabetic ketoacidosis related to type 1 diabetes. Respiratory failure and shock are present at admit. Patient appears stable today. No acute changes overnight. Continue to monitor patient clinically. Encephalopathy Unimproved Likely long-term Continue monitoring neurological status Palliative care following Elevated troponin Chronic systolic heart failure NSTEMI Cardiomyopathy Continue atorvastatin Continue aspirin Most recent ejection fraction 40% Acute hypoxemic respiratory failure Tracheostomy continue oxygenation as needed Continue pulmonary toilet Continue tracheostomy care Moderate protein energy malnutrition Elevated LFT's Continue PEG tube feeds Diabetes mellitus type 1 Follow blood sugars Insulin sliding scale Diabetic diet Continue Levemir DVT prophylaxis SCD heparin SQ Discharge Planning Palliative care following. Son is considering withdrawal of care in 2 weeks if no improvement is seen, and based on pending repeat imaging. SonJamin is the decision-maker. Discharge Planning Palliative care is following son expected to make decision in next week or so for withdrawal life support decision Aleks Pepe MD January 12, 2018 10:20
[2018-01-13] VITALS (8 sets, daily range): BP systolic 137–154; BP diastolic 70–97; PULSE 74–102; RESP 16–20; TEMP 98.2–99; O2SAT 98–100
[2018-01-13] MEDS: INSULIN DETEMIR 100 UNITS/ML VIAL SQ SCH ×2 (00:53→12:00)
[2018-01-13] MEDS: INSULIN ASPART SUPPLEMENTAL SCALE SQ SCH ×4 (00:54→18:00)
[2018-01-13] MEDS: HEPARIN SODIUM - SQ 10,000 UNITS/ML VIAL SQ SCH ×3 (00:55→18:03)
[2018-01-13] MEDS: [UNRECOGNIZED DRUG - REMARK] PEG SCH ×4 (04:00→22:00)
[2018-01-13] MEDS: FAMOTIDINE 20 MG TAB PEG SCH ×2 (08:38→21:07)
[2018-01-13] MEDS: ASPIRIN 81 MG CHEW TAB PEG SCH (08:38)
[2018-01-13] MEDS: URSODIOL 300 MG CAP PO SCH ×2 (08:38→21:07)
[2018-01-13] MEDS: CARVEDILOL 12.5 MG TAB PEG SCH ×2 (08:38→21:07)
[2018-01-13] MEDS: SODIUM CHLORIDE 0.9% FLUSH 10 ML FLUSH IV FLUSH SCH ×3 (09:00→21:07)
--- NOTE | 2018-01-13 09:30 | HHI.PR ---
Subjective Remarks Nursing denies any deterioration since last night. Patient again wakes up when stimulated and smiles, but does not verbalize at all. Objective Vital Signs Date Time Temp Pulse Resp B/P (MAP) Pulse Ox O2 Delivery O2 Flow Rate FiO2 01/13/18 04:00 98.7 102 18 143/91 (108) 98 01/13/18 04:00 98 Trach Collar 5.00 28 01/13/18 00:00 98.8 86 20 150/70 (96) 98 01/13/18 00:00 98 Trach Collar 5.00 28 01/13/18 00:00 98 Trach Collar 28 01/12/18 19:52 100 Trach Collar 5.00 28 01/12/18 19:52 99.8 96 18 159/90 (113) 100 01/12/18 16:00 99.4 95 18 147/79 (101) 98 01/12/18 15:58 5.00 28 01/12/18 12:00 99.2 82 18 156/84 (108) 99 I/O 01/12/18 01/12/18 01/12/18 01/13/18 01/13/18 01/13/18 07:00 15:00 23:00 07:00 15:00 23:00 Intake Total 1066 ml 1100 ml Output Total 450 ml 600 ml 600 ml Balance 616 ml 500 ml -600 ml Tube Feeding 566 ml 600 ml Other 500 ml 500 ml Output Urine Total 450 ml 600 ml 600 ml # Bowel Movements 0 0 Procedures PEG tube placement Tracheostomy Objective Remarks Sleeping, easily awoken, appears to make some eye contact today and smiles but does not verbalize anything. A/P Assessment and Plan 62-year-old female with long-term tracheostomy and PEG tube secondary to encephalopathy. Etiology for encephalopathy is related to diabetic ketoacidosis related to type 1 diabetes. Respiratory failure and shock are present at admit. Patient appears stable today. No acute changes since yesterday Encephalopathy Mild improvement given that the patient now awakens to her name/voice Likely long-term Continue monitoring neurological status Palliative care following Elevated troponin Chronic systolic heart failure NSTEMI Cardiomyopathy Continue atorvastatin Continue aspirin Most recent ejection fraction 40% Acute hypoxemic respiratory failure Tracheostomy continue oxygenation as needed Continue pulmonary toilet Continue tracheostomy care Moderate protein energy malnutrition Elevated LFT's Continue PEG tube feeds Diabetes mellitus type 1 Follow blood sugars Insulin sliding scale Diabetic diet Continue Levemir DVT prophylaxis SCD heparin SQ Discharge Planning Palliative care following. Son is considering withdrawal of care in 2 weeks if no improvement is seen, and based on pending repeat imaging. SonJamin is the decision-maker. Discharge Planning Palliative care is following son expected to make decision in next week or so for withdrawal life support decision Aleks Pepe MD January 13, 2018 09:30
[2018-01-14] VITALS (8 sets, daily range): BP systolic 103–154; BP diastolic 57–90; PULSE 78–96; RESP 16–18; TEMP 98.5–99.1; O2SAT 94–100
[2018-01-14] MEDS: INSULIN DETEMIR 100 UNITS/ML VIAL SQ SCH ×2 (00:24→12:00)
[2018-01-14] MEDS: HEPARIN SODIUM - SQ 10,000 UNITS/ML VIAL SQ SCH ×3 (02:46→18:00)
[2018-01-14] MEDS: [UNRECOGNIZED DRUG - REMARK] PEG SCH ×4 (04:00→22:00)
[2018-01-14] MEDS: INSULIN ASPART SUPPLEMENTAL SCALE SQ SCH ×4 (05:37→18:00)
[2018-01-14] MEDS: SODIUM CHLORIDE 0.9% FLUSH 10 ML FLUSH IV FLUSH SCH ×3 (09:00→20:22)
[2018-01-14] MEDS: ASPIRIN 81 MG CHEW TAB PEG SCH (09:00)
[2018-01-14] MEDS: FAMOTIDINE 20 MG TAB PEG SCH ×2 (09:00→20:22)
[2018-01-14] MEDS: URSODIOL 300 MG CAP PO SCH ×2 (09:00→20:22)
[2018-01-14] MEDS: CARVEDILOL 12.5 MG TAB PEG SCH ×2 (09:00→20:21)
--- NOTE | 2018-01-14 09:39 | HHI.PR ---
Subjective Remarks Nursing denies any deterioration since last night. Patient again wakes up when stimulated and smiles, but does not verbalize at all. Appears actually track today Objective Vital Signs Date Time Temp Pulse Resp B/P (MAP) Pulse Ox O2 Delivery O2 Flow Rate FiO2 01/14/18 08:30 99 Trach Collar 6.00 28 01/14/18 08:30 6.00 28 01/14/18 07:00 98 Trach Collar 5.00 28 01/14/18 04:00 98.8 83 16 150/86 (107) 99 01/14/18 01:40 100 Trach Collar 5.00 28 01/14/18 00:00 99.1 78 16 126/75 (92) 99 01/13/18 22:00 99 Trach Collar 28 01/13/18 20:00 98.2 83 18 150/85 (106) 98 01/13/18 19:00 98 Trach Collar 5.00 28 01/13/18 16:00 98.8 98 16 151/79 (103) 100 01/13/18 12:00 98.8 74 16 154/97 (116) 100 01/13/18 10:20 99 Trach Collar 28 01/13/18 10:20 Aerosol Mask 28 I/O 01/13/18 01/13/18 01/13/18 01/14/18 01/14/18 01/14/18 07:00 15:00 23:00 07:00 15:00 23:00 Intake Total 1100 ml 855 ml Output Total 600 ml 500.0 ml 950 ml Balance -600 ml 600.0 ml -95 ml Tube Feeding 600 ml 355 ml Other 500 ml 500 ml Output Urine Total 600 ml 500 ml 950 ml Tube Feeding Residual Discard 0 ml # Bowel Movements 0 Procedures PEG tube placement Tracheostomy Objective Remarks Sleeping, easily awoken, appears to make some eye contact today and smiles but does not verbalize anything. Tracking my face today, does not follow simple motor commands still A/P Assessment and Plan 62-year-old female with long-term tracheostomy and PEG tube secondary to encephalopathy. Etiology for encephalopathy is related to diabetic ketoacidosis related to type 1 diabetes. Respiratory failure and shock are present at admit. Patient appears stable today. No acute changes since yesterday Encephalopathy Mild very gradual improvement given that the patient now awakens to her name/ voice and is not visually tracking Likely long-term Continue monitoring neurological status Palliative care following Elevated troponin Chronic systolic heart failure NSTEMI Cardiomyopathy Continue atorvastatin Continue aspirin Most recent ejection fraction 40% Acute hypoxemic respiratory failure Tracheostomy continue oxygenation as needed Continue pulmonary toilet Continue tracheostomy care Moderate protein energy malnutrition Elevated LFT's Continue PEG tube feeds Diabetes mellitus type 1 Follow blood sugars Insulin sliding scale Diabetic diet Continue Levemir DVT prophylaxis SCD heparin SQ Discharge Planning Palliative care following. Son is considering withdrawal of care in 2 weeks if no improvement is seen, and based on pending repeat imaging. ArmandoJamin is the decision-maker. Discharge Planning Palliative care is following son expected to make decision in next week or so for withdrawal life support decision Aleks Pepe MD January 14, 2018 09:39
[2018-01-15] VITALS (7 sets, daily range): BP systolic 112–149; BP diastolic 64–78; PULSE 73–98; RESP 16–18; TEMP 98.1–99; O2SAT 98–100
[2018-01-15] MEDS: HEPARIN SODIUM - SQ 10,000 UNITS/ML VIAL SQ SCH ×3 (01:26→17:25)
[2018-01-15] MEDS: [UNRECOGNIZED DRUG - REMARK] PEG SCH ×4 (04:00→22:00)
[2018-01-15] MEDS: INSULIN ASPART SUPPLEMENTAL SCALE SQ SCH ×4 (05:55→17:25)
[2018-01-15] MEDS: FAMOTIDINE 20 MG TAB PEG SCH ×2 (09:00→22:44)
[2018-01-15] MEDS: SODIUM CHLORIDE 0.9% FLUSH 10 ML FLUSH IV FLUSH SCH ×3 (09:00→21:00)
--- NOTE | 2018-01-15 09:02 | HHI.PR ---
Subjective Remarks No events overnight. Tracking . VSS Objective Vitals Vital Signs Date Time Temp Pulse Resp B/P (MAP) Pulse Ox O2 Delivery O2 Flow Rate FiO2 01/15/18 08:59 Aerosol Mask 5.00 28 01/15/18 08:51 99 Trach Collar 5.00 28 01/15/18 04:00 98.7 79 16 128/64 (85) 99 01/15/18 00:00 98.6 74 18 149/73 (98) 99 01/14/18 21:10 94 Trach Collar 5.00 28 01/14/18 20:00 98.5 96 18 154/90 (111) 99 01/14/18 19:00 98 Trach Collar 5.00 28 01/14/18 12:00 98.8 83 16 106/69 (81) 99 I/O 01/14/18 01/14/18 01/14/18 01/15/18 01/15/18 01/15/18 07:00 15:00 23:00 07:00 15:00 23:00 Intake Total 855 ml 1146 ml Output Total 950 ml 550 ml Balance -95 ml 596 ml Tube Feeding 355 ml 646 ml Other 500 ml 500 ml Output Urine Total 950 ml 550 ml # Voids 2 # Bowel Movements 0 0 Imaging Last Impressions Chest X-Ray 12/23/17 0600 Signed Impressions: Service Date/Time: Saturday, December 23, 2017 04:28 - CONCLUSION: Consolidations and pleural effusions are unchanged. Tracheostomy tube in good position. Landon Graham MD Liver Ultrasound 12/22/17 0000 Signed Impressions: Service Date/Time: Friday, December 22, 2017 09:40 - CONCLUSION: 1. Liver demonstrates no acute finding. However, there is a small volume of free fluid in the abdomen in a perihepatic location. 2. Persistent but overall decreased gallbladder wall thickening. 3. Bilateral pleural effusions. Uziel Troy MD Hepatobiliary Scan Nuclear Medicine 12/18/17 0000 Signed Impressions: Service Date/Time: Monday, December 18, 2017 10:53 - CONCLUSION: 1. Normal uptake and excretion of radiotracer. Dimitri Bird MD ADDENDUM: The there is a air in the report under the medication sections it should read cholecystokinin was administered by slow infusion over 8 minutes beginning at the 60 minute jyoti. Dimitri Bird MD Abdomen/Pelvis CT 12/17/17 Signed Impressions: Service Date/Time: Sunday, December 17, 2017 15:44 - CONCLUSION: 1. There is a trace amount of free air in the upper abdomen anterior to left lobe of the liver and adjacent to the stomach. While nonspecific, this could be related to the G-tube. Suggest correlating with the clinical examination for signs of acute abdomen which would indicate a more concerning cause. 2. Moderately distended ascending and transverse colon. However, no anatomic obstruction is visualized. 3. Signs of fluid overload including bilateral pleural effusions, anasarca, periportal edema, and small volume of free fluid in the abdomen and pelvis. Uziel Troy MD Upper Extremity Ultrasound 12/15/17 Signed Impressions: Service Date/Time: Friday, December 15, 2017 13:57 - CONCLUSION: Nonocclusive thrombus within left internal jugular vein. The remaining venous structures in the left upper extremity appear patent. Uziel Thomas MD Neck CTA 12/11/17 Signed Impressions: Service Date/Time: Monday, December 11, 2017 23:08 - CONCLUSION: No carotid stenosis. Ac Davis MD Head CTA 12/11/17 Signed Impressions: Service Date/Time: Monday, December 11, 2017 23:08 - CONCLUSION: 1. No large vessel stenosis or aneurysm. Ac Davis MD Brain MRI 12/11/17 Signed Impressions: Service Date/Time: Monday, December 11, 2017 11:12 - CONCLUSION: 1. Faint diffusion restriction predominately along the high right parietal convexity with minimal diffusion restriction on the left. Pattern is somewhat unusual for anoxia with the asymmetry. Possible embolic event. CTA of the cervical and intracranial vessels to be performed for further characterization. 2. Chronic changes with some periventricular small vessel ischemic demyelination. 3. Mild ventricular prominence. In the appropriate clinical setting, findings could represent normal pressure hydrocephalus. 4. Bilateral mastoiditis. Mild chronic sinus disease in the sphenoid bilaterally. Dani Titus MD Gall Bladder Ultrasound 12/03/17 0000 Signed Impressions: Service Date/Time: Sunday, December 03, 2017 07:59 - CONCLUSION: 1. Ascites and bilateral pleural effusions. 2. Mildly distended gallbladder without evidence of wall thickening or cholelithiasis. 3. Otherwise unremarkable exam. Boo Cartwright MD Lumbar Puncture Fluoroscopy 12/02/17 0000 Signed Impressions: Service Date/Time: Saturday, December 02, 2017 15:28 - CONCLUSION: Uncomplicated fluoroscopically guided lumbar puncture. Aly Leigh MD Renal Ultrasound 11/29/17 1656 Signed Impressions: Service Date/Time: Wednesday, November 29, 2017 13:16 - CONCLUSION: 1. Both kidneys are sonographically normal without hydronephrosis or nephrolithiasis. 2. Very abnormal appearance of the gallbladder with mural thickening and minimal pericholecystic fluid Dani Titus MD Head CT 11/28/17 0000 Signed Impressions: Service Date/Time: November 15:46 - CONCLUSION: 1. Ventriculomegaly suggesting central cerebral atrophy versus hydrocephalus. Clinical correlation is recommended. 2. No acute infarct, acute hemorrhage, midline shift or extra-axial fluid collections. Dev Christopher MD Objective Remarks GENERAL: Nonverbal, tracking. chronically ill patient. On trach. SKIN: Trach in place NECK: Trachea midline. No JVD. CARDIOVASCULAR: Regular rate and rhythm. RESPIRATORY: Trach in place. No accessory muscle use. Clear to auscultation. Breath sounds equal bilaterally. GASTROINTESTINAL: Abdomen soft, non-tender, nondistended. Hepatic and splenic margins not palpable. NEUROLOGICAL: Tracking. Contracted. Procedures 12/02- lumbar puncture Date of Insertion: Nov 28, 2017 Line: Central Venous Catheter Side: Left Location: Internal, Jugular A/P Problem List: (1) Macrocytic anemia ICD Code: D53.9 - Nutritional anemia, unspecified (2) Leukocytosis ICD Code: D72.829 - Elevated white blood cell count, unspecified Status: Resolved (3) Acute kidney injury ICD Code: N17.9 - Acute kidney failure, unspecified (4) Hyponatremia ICD Code: E87.1 - Hypo-osmolality and hyponatremia (5) Hypotension ICD Code: I95.9 - Hypotension, unspecified (6) DM type 1 (diabetes mellitus, type 1) ICD Code: E10.9 - DM type 1 (diabetes mellitus, type 1) Status: Acute (7) DKA (diabetic ketoacidoses) ICD Code: E13.10 - Other specified diabetes mellitus with ketoacidosis without coma Status: Resolved (8) Acute renal failure ICD Code: N17.9 - Acute kidney failure, unspecified Status: Acute (9) Hyperkalemia ICD Code: E87.5 - Hyperkalemia Status: Acute (10) Shock ICD Code: R57.9 - Shock, unspecified Status: Acute (11) Tobacco abuse ICD Code: Z72.0 - Tobacco abuse Status: Acute Assessment and Plan 62-year-old female with long-term tracheostomy and PEG tube secondary to encephalopathy. Etiology for encephalopathy is related to diabetic ketoacidosis related to type 1 diabetes. Respiratory failure and shock are present at admit. Patient appears stable at this time. Encephalopathy Mild very gradual improvement given that the patient now awakens to her name/ voice and is not visually tracking Likely long-term Continue monitoring neurological status Palliative care following Elevated troponin Chronic systolic heart failure NSTEMI Cardiomyopathy Continue atorvastatin Continue aspirin Most recent ejection fraction 40% Acute hypoxemic respiratory failure Tracheostomy continue oxygenation as needed Continue pulmonary toilet Continue tracheostomy care Moderate protein energy malnutrition Elevated LFT's Continue PEG tube feeds Diabetes mellitus type 1 Follow blood sugars Insulin sliding scale Diabetic diet Continue Levemir DVT prophylaxis SCD heparin SQ Discharge Planning Palliative care following. Son is considering withdrawal of care in 2 weeks if no improvement is seen, and based on pending repeat imaging. Jamin Roberts is the decision-maker. Discharge Planning Palliative care is following Son expected to make decision in next week or so for withdrawal life support decision Problem Qualifiers (1) Leukocytosis: Qualified Codes: D72.829 - Elevated white blood cell count, unspecified (2) Hypotension: Qualified Codes: I95.9 - Hypotension, unspecified (3) DM type 1 (diabetes mellitus, type 1): Qualified Codes: E10.69 - Type 1 diabetes mellitus with other specified complication; E10.65 - Type 1 diabetes mellitus with hyperglycemia (4) DKA (diabetic ketoacidoses): Qualified Codes: E10.11 - Type 1 diabetes mellitus with ketoacidosis with coma (5) Acute renal failure: Qualified Codes: N17.9 - Acute kidney failure, unspecified Allie Davis MD January 15, 2018 09:02
[2018-01-15] MEDS: ASPIRIN 81 MG CHEW TAB PEG SCH (09:29)
[2018-01-15] MEDS: CARVEDILOL 12.5 MG TAB PEG SCH ×2 (09:29→22:10)
[2018-01-15] MEDS: URSODIOL 300 MG CAP PO SCH ×2 (09:29→22:10)
[2018-01-15] MEDS: INSULIN DETEMIR 100 UNITS/ML VIAL SQ SCH ×2 (12:00)
[2018-01-16] VITALS (7 sets, daily range): BP systolic 117–154; BP diastolic 60–92; PULSE 64–90; RESP 16–18; TEMP 97.9–98.8; O2SAT 97–100
[2018-01-16] MEDS: INSULIN DETEMIR 100 UNITS/ML VIAL SQ SCH ×2 (00:50→12:23)
[2018-01-16] MEDS: HEPARIN SODIUM - SQ 10,000 UNITS/ML VIAL SQ SCH ×3 (02:17→18:14)
[2018-01-16] MEDS: [UNRECOGNIZED DRUG - REMARK] PEG SCH ×4 (04:00→22:34)
[2018-01-16] MEDS: INSULIN ASPART SUPPLEMENTAL SCALE SQ SCH ×4 (06:10→18:00)
[2018-01-16] MEDS: URSODIOL 300 MG CAP PO SCH ×2 (08:49→20:27)
[2018-01-16] MEDS: FAMOTIDINE 20 MG TAB PEG SCH ×2 (08:49→20:27)
[2018-01-16] MEDS: ASPIRIN 81 MG CHEW TAB PEG SCH (08:49)
[2018-01-16] MEDS: CARVEDILOL 12.5 MG TAB PEG SCH ×2 (08:50→20:27)
[2018-01-16] MEDS: SODIUM CHLORIDE 0.9% FLUSH 10 ML FLUSH IV FLUSH SCH ×3 (08:50→20:27)
--- NOTE | 2018-01-16 10:17 | HHI.PR ---
Subjective Remarks Passed swallow eval diet change per ST.Disussed with ST Patient follows some commands. In bed appears in nad. Per nurse was able to say some words. Improving. Objective Vitals Vital Signs Date Time Temp Pulse Resp B/P (MAP) Pulse Ox O2 Delivery O2 Flow Rate FiO2 01/16/18 09:23 28 01/16/18 09:21 97 Trach Collar 5.00 28 01/16/18 04:00 98.2 81 18 141/76 (97) 100 01/16/18 00:00 98.2 77 18 117/60 (79) 99 01/15/18 20:00 98.4 90 18 132/75 (94) 99 01/15/18 19:00 99 5.00 28 01/15/18 16:00 98.1 89 16 128/72 (90) 100 01/15/18 12:00 99.0 98 16 135/78 (97) 99 I/O 01/15/18 01/15/18 01/15/18 01/16/18 01/16/18 01/16/18 06:59 14:59 22:59 06:59 14:59 22:59 Intake Total 1146 ml 1100 ml 971 ml Output Total 550 ml 600 ml 800 ml Balance 596 ml 500 ml 171 ml Tube Feeding 646 ml 600 ml 471 ml Other 500 ml 500 ml 500 ml Output Urine Total 550 ml 600 ml 800 ml # Voids 2 # Bowel Movements 0 0 0 Imaging Last Impressions Chest X-Ray 12/23/17 0600 Signed Impressions: Service Date/Time: Saturday, December 23, 2017 04:28 - CONCLUSION: Consolidations and pleural effusions are unchanged. Tracheostomy tube in good position. Landon Graham MD Liver Ultrasound 12/22/17 0000 Signed Impressions: Service Date/Time: Friday, December 22, 2017 09:40 - CONCLUSION: 1. Liver demonstrates no acute finding. However, there is a small volume of free fluid in the abdomen in a perihepatic location. 2. Persistent but overall decreased gallbladder wall thickening. 3. Bilateral pleural effusions. Uziel Troy MD Hepatobiliary Scan Nuclear Medicine 12/18/17 0000 Signed Impressions: Service Date/Time: Monday, December 18, 2017 10:53 - CONCLUSION: 1. Normal uptake and excretion of radiotracer. Dimitri Bird MD ADDENDUM: The there is a air in the report under the medication sections it should read cholecystokinin was administered by slow infusion over 8 minutes beginning at the 60 minute jyoti. Dimitri Bird MD Abdomen/Pelvis CT 12/17/17 0000 Signed Impressions: Service Date/Time: Sunday, December 17, 2017 15:44 - CONCLUSION: 1. There is a trace amount of free air in the upper abdomen anterior to left lobe of the liver and adjacent to the stomach. While nonspecific, this could be related to the G-tube. Suggest correlating with the clinical examination for signs of acute abdomen which would indicate a more concerning cause. 2. Moderately distended ascending and transverse colon. However, no anatomic obstruction is visualized. 3. Signs of fluid overload including bilateral pleural effusions, anasarca, periportal edema, and small volume of free fluid in the abdomen and pelvis. Uziel Troy MD Upper Extremity Ultrasound 12/15/17 0000 Signed Impressions: Service Date/Time: Friday, December 15, 2017 13:57 - CONCLUSION: Nonocclusive thrombus within left internal jugular vein. The remaining venous structures in the left upper extremity appear patent. Uziel Thomas MD Neck CTA 12/11/17 0000 Signed Impressions: Service Date/Time: Monday, December 11, 2017 23:08 - CONCLUSION: No carotid stenosis. Ac Davis MD Head CTA 12/11/17 0000 Signed Impressions: Service Date/Time: Monday, December 11, 2017 23:08 - CONCLUSION: 1. No large vessel stenosis or aneurysm. Ac Davis MD Brain MRI 12/11/17 0000 Signed Impressions: Service Date/Time: Monday, December 11, 2017 11:12 - CONCLUSION: 1. Faint diffusion restriction predominately along the high right parietal convexity with minimal diffusion restriction on the left. Pattern is somewhat unusual for anoxia with the asymmetry. Possible embolic event. CTA of the cervical and intracranial vessels to be performed for further characterization. 2. Chronic changes with some periventricular small vessel ischemic demyelination. 3. Mild ventricular prominence. In the appropriate clinical setting, findings could represent normal pressure hydrocephalus. 4. Bilateral mastoiditis. Mild chronic sinus disease in the sphenoid bilaterally. Dani Titus MD Gall Bladder Ultrasound 12/03/17 0000 Signed Impressions: Service Date/Time: Sunday, December 03, 2017 07:59 - CONCLUSION: 1. Ascites and bilateral pleural effusions. 2. Mildly distended gallbladder without evidence of wall thickening or cholelithiasis. 3. Otherwise unremarkable exam. Boo Cartwright MD Lumbar Puncture Fluoroscopy 12/02/17 0000 Signed Impressions: Service Date/Time: Saturday, December 02, 2017 15:28 - CONCLUSION: Uncomplicated fluoroscopically guided lumbar puncture. Aly Leigh MD Renal Ultrasound 11/29/17 1656 Signed Impressions: Service Date/Time: Wednesday, November 29, 2017 13:16 - CONCLUSION: 1. Both kidneys are sonographically normal without hydronephrosis or nephrolithiasis. 2. Very abnormal appearance of the gallbladder with mural thickening and minimal pericholecystic fluid Dani Titus MD Head CT 11/28/17 0000 Signed Impressions: Service Date/Time: November 15:46 - CONCLUSION: 1. Ventriculomegaly suggesting central cerebral atrophy versus hydrocephalus. Clinical correlation is recommended. 2. No acute infarct, acute hemorrhage, midline shift or extra-axial fluid collections. Dev Christopher MD Objective Remarks GENERAL: Nonverbal, chronically ill patient, appears in nad. . On trach. SKIN: Trach in place NECK: Trachea midline. No JVD. CARDIOVASCULAR: Regular rate and rhythm. RESPIRATORY: Trach in place. No accessory muscle use. Clear to auscultation. Breath sounds equal bilaterally. GASTROINTESTINAL: Abdomen soft, non-tender, nondistended. Hepatic and splenic margins not palpable. NEUROLOGICAL: More awake and alert. Tracking, follows some commands. Contracted. Procedures 12/02- lumbar puncture Date of Insertion: Nov 28, 2017 Line: Central Venous Catheter Side: Left Location: Internal, Jugular A/P Problem List: (1) Macrocytic anemia ICD Code: D53.9 - Nutritional anemia, unspecified (2) Leukocytosis ICD Code: D72.829 - Elevated white blood cell count, unspecified Status: Resolved (3) Acute kidney injury ICD Code: N17.9 - Acute kidney failure, unspecified (4) Hyponatremia ICD Code: E87.1 - Hypo-osmolality and hyponatremia (5) Hypotension ICD Code: I95.9 - Hypotension, unspecified (6) DM type 1 (diabetes mellitus, type 1) ICD Code: E10.9 - DM type 1 (diabetes mellitus, type 1) Status: Acute (7) DKA (diabetic ketoacidoses) ICD Code: E13.10 - Other specified diabetes mellitus with ketoacidosis without coma Status: Resolved (8) Acute renal failure ICD Code: N17.9 - Acute kidney failure, unspecified Status: Acute (9) Hyperkalemia ICD Code: E87.5 - Hyperkalemia Status: Acute (10) Shock ICD Code: R57.9 - Shock, unspecified Status: Acute (11) Tobacco abuse ICD Code: Z72.0 - Tobacco abuse Status: Acute Assessment and Plan 62-year-old female with long-term tracheostomy and PEG tube secondary to encephalopathy. Etiology for encephalopathy is related to diabetic ketoacidosis related to type 1 diabetes. Respiratory failure and shock are present at admit. Patient appears stable at this time. Encephalopathy, improving Mild very gradual improvement given that the patient now awakens to her name/ voice and is not visually tracking Likely long-term Continue monitoring neurological status Palliative care following Elevated troponin Chronic systolic heart failure NSTEMI Cardiomyopathy Continue atorvastatin Continue aspirin Most recent ejection fraction 40% Acute hypoxemic respiratory failure Tracheostomy continue oxygenation as needed Continue pulmonary toilet Continue tracheostomy care Consult pulm Moderate protein energy malnutrition Elevated LFT's Continue PEG tube feeds ST consulted for evaluation Change diet per ST Diabetes mellitus type 1 Follow blood sugars Insulin sliding scale Diabetic diet Continue Levemir DVT prophylaxis SCD heparin SQ Discharge Planning Palliative care following. Son is considering withdrawal of care in 2 weeks if no improvement is seen, and based on pending repeat imaging. Jamin Roberts is the decision-maker. Discharge Planning Palliative care is following Son expected to make decision in next week or so for withdrawal life support decision Patien timprpved some Pulm ff for trach Also ST for eval change diet per ST indications. Discussed with the nurse Problem Qualifiers (1) Leukocytosis: Qualified Codes: D72.829 - Elevated white blood cell count, unspecified (2) Hypotension: Qualified Codes: I95.9 - Hypotension, unspecified (3) DM type 1 (diabetes mellitus, type 1): Qualified Codes: E10.69 - Type 1 diabetes mellitus with other specified complication; E10.65 - Type 1 diabetes mellitus with hyperglycemia (4) DKA (diabetic ketoacidoses): Qualified Codes: E10.11 - Type 1 diabetes mellitus with ketoacidosis with coma (5) Acute renal failure: Qualified Codes: N17.9 - Acute kidney failure, unspecified Allie Davis MD January 16, 2018 10:17
--- NOTE | 2018-01-16 19:40 | MB ---
cc: Lalo Green MD, Dany A MD DATE: 01/16/2018 REASON FOR CONSULTATION: Trach care. HISTORY OF PRESENT ILLNESS: The patient is a 62-year-old female who came in with mental status change. The patient is status post trach and PEG. The patient is currently on a Passy-Sharmin valve. The patient is awake, trach #6 and no secretions. She does have good cough according to the nurses. The patient is on room air. No issues with respiratory problems. PAST MEDICAL HISTORY: Reviewed in detail. MEDICATIONS: Reviewed as well. The patient does not give any good history. REVIEW OF SYSTEMS: Not possible. PHYSICAL EXAMINATION: GENERAL: The patient appears comfortable in bed. VITAL SIGNS: Temperature 98.2, pulse 83, respiratory rate 18, blood pressure 144/84. She is sating 97%, 28% FiO2. HEAD: Atraumatic, normocephalic. Trach in place. No secretions. LUNGS: Clear. HEART: S1, S2. ABDOMEN: Soft. EXTREMITIES: No edema. NEUROLOGIC: The patient is awake. She does not follow any commands. LABORATORY DATA: Her last labs are reviewed. Last hemoglobin from 12/29 is 11.3. IMAGING STUDIES: Her last chest x-ray from 12/23 was reviewed as well. They did show evidence of consolidation, pleural effusions and trach was in good place. ASSESSMENT AND PLAN: 1. Status post tracheostomy. 2. Encephalopathy. I do believe overall she is doing well. I do believe she is a good candidate for decannulation, thus, I would do a capping trial. I will ask for the patient to be capped and, if the patient needs to be uncapped, I would like that to be documented. If she does well being capped for 24 to 48 hours, we will go ahead and decannulate the patient. Thank you for this consultation. MD YOANDY Tamayo/ , 07:06 PM , 07:38 PM
[2018-01-17] VITALS (8 sets, daily range): BP systolic 117–140; BP diastolic 62–85; PULSE 74–88; RESP 16; TEMP 97.9–99; O2SAT 98–99
[2018-01-17] MEDS: INSULIN DETEMIR 100 UNITS/ML VIAL SQ SCH ×3 (00:17→23:39)
[2018-01-17] MEDS: HEPARIN SODIUM - SQ 10,000 UNITS/ML VIAL SQ SCH ×3 (01:34→18:00)
[2018-01-17] MEDS: LACTULOSE SYRUP 20 GM/30 ML CUP PEG PRN (03:13)
[2018-01-17] MEDS: [UNRECOGNIZED DRUG - REMARK] PEG SCH ×4 (03:18→20:27)
[2018-01-17] MEDS: INSULIN ASPART SUPPLEMENTAL SCALE SQ SCH ×5 (06:20→23:39)
--- NOTE | 2018-01-17 07:56 | HHI.PR ---
Subjective Remarks Feels much better. She is more awake and alert. Trach was capped.. Falls asleep easily. Objective Vitals Vital Signs Date Time Temp Pulse Resp B/P (MAP) Pulse Ox O2 Delivery O2 Flow Rate FiO2 01/17/18 07:00 99 Trach Collar 5.00 28 01/17/18 04:00 97.9 88 16 140/85 (103) 99 01/17/18 00:00 98.6 79 16 135/70 (91) 99 01/16/18 20:00 98.6 84 16 141/73 (95) 99 01/16/18 19:00 99 Trach Collar 5.00 28 01/16/18 16:00 98.2 83 18 144/84 (104) 97 01/16/18 12:00 97.9 89 18 128/92 (104) 100 01/16/18 09:23 28 01/16/18 09:21 97 Trach Collar 5.00 28 01/16/18 08:00 98.8 64 18 154/92 (112) 100 01/16/18 08:00 99 Trach Collar 5.00 28 I/O 01/16/18 01/16/18 01/16/18 01/17/18 01/17/18 01/17/18 07:00 15:00 23:00 07:00 15:00 23:00 Intake Total 971 ml 1025 ml 1093 ml Output Total 800 ml 800.0 ml 550 ml Balance 171 ml 225.0 ml 543 ml Tube Feeding 471 ml 525 ml 593 ml Other 500 ml 500 ml 500 ml Output Urine Total 800 ml 800 ml 550 ml Tube Feeding Residual Discard 0 ml # Bowel Movements 0 0 0 Objective Remarks GENERAL: Nonverbal, chronically ill patient, appears in nad. trach is capped SKIN: Trach is capped. NECK: Trachea midline. No JVD. CARDIOVASCULAR: Regular rate and rhythm. RESPIRATORY: Trach capped. No accessory muscle use. Clear to auscultation. Breath sounds equal bilaterally. GASTROINTESTINAL: Abdomen soft, non-tender, nondistended. Hepatic and splenic margins not palpable. NEUROLOGICAL: More awake and alert. Tracking, follows some commands. Contracted. Procedures 12/02- lumbar puncture Date of Insertion: Nov 28, 2017 Line: Central Venous Catheter Side: Left Location: Internal, Jugular A/P Problem List: (1) Macrocytic anemia ICD Code: D53.9 - Nutritional anemia, unspecified (2) Leukocytosis ICD Code: D72.829 - Elevated white blood cell count, unspecified Status: Resolved (3) Acute kidney injury ICD Code: N17.9 - Acute kidney failure, unspecified (4) Hyponatremia ICD Code: E87.1 - Hypo-osmolality and hyponatremia (5) Hypotension ICD Code: I95.9 - Hypotension, unspecified (6) DM type 1 (diabetes mellitus, type 1) ICD Code: E10.9 - DM type 1 (diabetes mellitus, type 1) Status: Acute (7) DKA (diabetic ketoacidoses) ICD Code: E13.10 - Other specified diabetes mellitus with ketoacidosis without coma Status: Resolved (8) Acute renal failure ICD Code: N17.9 - Acute kidney failure, unspecified Status: Acute (9) Hyperkalemia ICD Code: E87.5 - Hyperkalemia Status: Acute (10) Shock ICD Code: R57.9 - Shock, unspecified Status: Acute (11) Tobacco abuse ICD Code: Z72.0 - Tobacco abuse Status: Acute Assessment and Plan 62-year-old female with long-term tracheostomy and PEG tube secondary to encephalopathy. Etiology for encephalopathy is related to diabetic ketoacidosis related to type 1 diabetes. Respiratory failure and shock are present at admit. Improving. Patient appears stable at this time. Trach is capped. Encephalopathy, improving Mild very gradual improvement given that the patient now awakens to her name/ voice and is not visually tracking Likely long-term Continue monitoring neurological status Palliative care following Elevated troponin Chronic systolic heart failure NSTEMI Cardiomyopathy Continue atorvastatin Continue aspirin Most recent ejection fraction 40% Acute hypoxemic respiratory failure Tracheostomy continue oxygenation as needed Continue pulmonary toilet Continue tracheostomy care Consult pulm Moderate protein energy malnutrition Elevated LFT's Continue PEG tube feeds ST consulted for evaluation Change diet per ST Diabetes mellitus type 1 Follow blood sugars Insulin sliding scale Diabetic diet Continue Levemir DVT prophylaxis SCD heparin SQ Discharge Planning Palliative care following. Son is considering withdrawal of care in 2 weeks if no improvement is seen, and based on pending repeat imaging. Jamin Roberts is the decision-maker. Discharge Planning Palliative care is following Son expected to make decision in next week or so for withdrawal life support decision Patient imprpved some Pulm ff for trach. Trach is capped ST eval diet change per ST indications. Discussed with the nurse Problem Qualifiers (1) Leukocytosis: Qualified Codes: D72.829 - Elevated white blood cell count, unspecified (2) Hypotension: Qualified Codes: I95.9 - Hypotension, unspecified (3) DM type 1 (diabetes mellitus, type 1): Qualified Codes: E10.69 - Type 1 diabetes mellitus with other specified complication; E10.65 - Type 1 diabetes mellitus with hyperglycemia (4) DKA (diabetic ketoacidoses): Qualified Codes: E10.11 - Type 1 diabetes mellitus with ketoacidosis with coma (5) Acute renal failure: Qualified Codes: N17.9 - Acute kidney failure, unspecified Allie Davis MD Jan 17, 2018 07:56
[2018-01-17] MEDS: ASPIRIN 81 MG CHEW TAB PEG SCH (07:58)
[2018-01-17] MEDS: FAMOTIDINE 20 MG TAB PEG SCH ×2 (07:58→20:27)
[2018-01-17] MEDS: URSODIOL 300 MG CAP PO SCH ×2 (07:58→20:27)
[2018-01-17] MEDS: SODIUM CHLORIDE 0.9% FLUSH 10 ML FLUSH IV FLUSH SCH ×3 (07:58→20:28)
[2018-01-17] MEDS: CARVEDILOL 12.5 MG TAB PEG SCH ×2 (07:58→20:27)
[2018-01-18] VITALS (8 sets, daily range): BP systolic 116–150; BP diastolic 66–90; PULSE 75–110; RESP 14–20; TEMP 97.7–99; O2SAT 93–99
[2018-01-18] MEDS: [UNRECOGNIZED DRUG - REMARK] PEG SCH ×4 (02:20→20:53)
[2018-01-18] MEDS: HEPARIN SODIUM - SQ 10,000 UNITS/ML VIAL SQ SCH ×3 (02:44→17:58)
[2018-01-18] MEDS: INSULIN ASPART SUPPLEMENTAL SCALE SQ SCH ×3 (05:32→18:00)
[2018-01-18] MEDS: CARVEDILOL 12.5 MG TAB PEG SCH ×2 (08:37→20:51)
[2018-01-18] MEDS: FAMOTIDINE 20 MG TAB PEG SCH ×2 (08:37→20:51)
[2018-01-18] MEDS: ASPIRIN 81 MG CHEW TAB PEG SCH (08:37)
[2018-01-18] MEDS: URSODIOL 300 MG CAP PO SCH ×2 (08:37→20:51)
[2018-01-18] MEDS: SODIUM CHLORIDE 0.9% FLUSH 10 ML FLUSH IV FLUSH SCH ×3 (09:00→20:52)
--- NOTE | 2018-01-18 09:34 | HHI.PR ---
Subjective Remarks More awake and alert she is downsized to #8 Lantus. No secretions. Tracking and nods yes/no. Does not appear in acute distress at this time. Objective Vitals Vital Signs Date Time Temp Pulse Resp B/P (MAP) Pulse Ox O2 Delivery O2 Flow Rate FiO2 01/18/18 09:04 96 21 01/18/18 04:00 98.1 82 16 117/66 (83) 99 01/18/18 00:00 98.8 89 16 116/67 (83) 93 01/17/18 21:54 99 21 01/17/18 20:00 98.7 85 16 140/66 (90) 98 01/17/18 20:00 Room Air 01/17/18 16:00 98.0 85 16 121/63 (82) 99 01/17/18 12:00 99.0 74 16 117/68 (84) 98 I/O 01/17/18 01/17/18 01/17/18 01/18/18 01/18/18 01/18/18 07:00 15:00 23:00 07:00 15:00 23:00 Intake Total 1093 ml 974 ml 1104 ml Output Total 550 ml 0 ml 400 ml 700 ml Balance 543 ml 0 ml 574 ml 404 ml Tube Feeding 593 ml 474 ml 604 ml Tube Irrigant 500 ml Other 500 ml 500 ml Output Urine Total 550 ml 400 ml 700 ml Tube Feeding Residual Discard 0 ml # Voids 1 # Bowel Movements 0 0 Imaging Last Impressions Chest X-Ray 12/23/17 0600 Signed Impressions: Service Date/Time: Saturday, December 23, 2017 04:28 - CONCLUSION: Consolidations and pleural effusions are unchanged. Tracheostomy tube in good position. Landon Graham MD Liver Ultrasound 12/22/17 0000 Signed Impressions: Service Date/Time: Friday, December 22, 2017 09:40 - CONCLUSION: 1. Liver demonstrates no acute finding. However, there is a small volume of free fluid in the abdomen in a perihepatic location. 2. Persistent but overall decreased gallbladder wall thickening. 3. Bilateral pleural effusions. Uziel Troy MD Hepatobiliary Scan Nuclear Medicine 12/18/17 0000 Signed Impressions: Service Date/Time: Monday, December 18, 2017 10:53 - CONCLUSION: 1. Normal uptake and excretion of radiotracer. Dimitri Bird MD ADDENDUM: The there is a air in the report under the medication sections it should read cholecystokinin was administered by slow infusion over 8 minutes beginning at the 60 minute jyoti. Dimitri Bird MD Abdomen/Pelvis CT 12/17/17 0000 Signed Impressions: Service Date/Time: Sunday, December 17, 2017 15:44 - CONCLUSION: 1. There is a trace amount of free air in the upper abdomen anterior to left lobe of the liver and adjacent to the stomach. While nonspecific, this could be related to the G-tube. Suggest correlating with the clinical examination for signs of acute abdomen which would indicate a more concerning cause. 2. Moderately distended ascending and transverse colon. However, no anatomic obstruction is visualized. 3. Signs of fluid overload including bilateral pleural effusions, anasarca, periportal edema, and small volume of free fluid in the abdomen and pelvis. Uziel Troy MD Upper Extremity Ultrasound 12/15/17 0000 Signed Impressions: Service Date/Time: Friday, December 15, 2017 13:57 - CONCLUSION: Nonocclusive thrombus within left internal jugular vein. The remaining venous structures in the left upper extremity appear patent. Uziel Thomas MD Neck CTA 12/11/17 0000 Signed Impressions: Service Date/Time: Monday, December 11, 2017 23:08 - CONCLUSION: No carotid stenosis. Ac Davis MD Head CTA 12/11/17 0000 Signed Impressions: Service Date/Time: Monday, December 11, 2017 23:08 - CONCLUSION: 1. No large vessel stenosis or aneurysm. Ac Davis MD Brain MRI 12/11/17 0000 Signed Impressions: Service Date/Time: Monday, December 11, 2017 11:12 - CONCLUSION: 1. Faint diffusion restriction predominately along the high right parietal convexity with minimal diffusion restriction on the left. Pattern is somewhat unusual for anoxia with the asymmetry. Possible embolic event. CTA of the cervical and intracranial vessels to be performed for further characterization. 2. Chronic changes with some periventricular small vessel ischemic demyelination. 3. Mild ventricular prominence. In the appropriate clinical setting, findings could represent normal pressure hydrocephalus. 4. Bilateral mastoiditis. Mild chronic sinus disease in the sphenoid bilaterally. Dani Titus MD Gall Bladder Ultrasound 12/03/17 0000 Signed Impressions: Service Date/Time: Sunday, December 03, 2017 07:59 - CONCLUSION: 1. Ascites and bilateral pleural effusions. 2. Mildly distended gallbladder without evidence of wall thickening or cholelithiasis. 3. Otherwise unremarkable exam. Boo Cartwright MD Lumbar Puncture Fluoroscopy 12/02/17 0000 Signed Impressions: Service Date/Time: Saturday, December 02, 2017 15:28 - CONCLUSION: Uncomplicated fluoroscopically guided lumbar puncture. Aly Leigh MD Renal Ultrasound 11/29/17 1656 Signed Impressions: Service Date/Time: Wednesday, November 29, 2017 13:16 - CONCLUSION: 1. Both kidneys are sonographically normal without hydronephrosis or nephrolithiasis. 2. Very abnormal appearance of the gallbladder with mural thickening and minimal pericholecystic fluid Dani Titus MD Head CT 11/28/17 0000 Signed Impressions: Service Date/Time: November 15:46 - CONCLUSION: 1. Ventriculomegaly suggesting central cerebral atrophy versus hydrocephalus. Clinical correlation is recommended. 2. No acute infarct, acute hemorrhage, midline shift or extra-axial fluid collections. Dev Christopher MD Objective Remarks GENERAL: Nonverbal, nods/yes/no to questions, chronically ill patient, appears in nad. Trach is capped SKIN: Trach is capped. NECK: Trachea midline. No JVD. CARDIOVASCULAR: Regular rate and rhythm. RESPIRATORY: Trach capped. No secretions. No accessory muscle use. Clear to auscultation. Breath sounds equal bilaterally. GASTROINTESTINAL: Abdomen soft, non-tender, nondistended. Hepatic and splenic margins not palpable. NEUROLOGICAL: More awake and alert. Tracking, follows some commands. Contracted. Procedures 12/02- lumbar puncture Date of Insertion: Nov 28, 2017 Line: Central Venous Catheter Side: Left Location: Internal, Jugular A/P Problem List: (1) Macrocytic anemia ICD Code: D53.9 - Nutritional anemia, unspecified (2) Leukocytosis ICD Code: D72.829 - Elevated white blood cell count, unspecified Status: Resolved (3) Acute kidney injury ICD Code: N17.9 - Acute kidney failure, unspecified (4) Hyponatremia ICD Code: E87.1 - Hypo-osmolality and hyponatremia (5) Hypotension ICD Code: I95.9 - Hypotension, unspecified (6) DM type 1 (diabetes mellitus, type 1) ICD Code: E10.9 - DM type 1 (diabetes mellitus, type 1) Status: Acute (7) DKA (diabetic ketoacidoses) ICD Code: E13.10 - Other specified diabetes mellitus with ketoacidosis without coma Status: Resolved (8) Acute renal failure ICD Code: N17.9 - Acute kidney failure, unspecified Status: Acute (9) Hyperkalemia ICD Code: E87.5 - Hyperkalemia Status: Acute (10) Shock ICD Code: R57.9 - Shock, unspecified Status: Acute (11) Tobacco abuse ICD Code: Z72.0 - Tobacco abuse Status: Acute Assessment and Plan 62-year-old female with long-term tracheostomy and PEG tube secondary to encephalopathy. Etiology for encephalopathy is related to diabetic ketoacidosis related to type 1 diabetes. Respiratory failure and shock are present at admit. Improving. Trach is capped. More awake and alert. Nods yes/no . Patient appears stable at this time. Encephalopathy, improving Mild very gradual improvement given that the patient now awakens to her name/ voice and is not visually tracking Likely long-term Continue monitoring neurological status Palliative care following Elevated troponin Chronic systolic heart failure NSTEMI Cardiomyopathy Continue atorvastatin Continue aspirin Most recent ejection fraction 40% Acute hypoxemic respiratory failure Tracheostomy continue oxygenation as needed Continue pulmonary toilet Continue tracheostomy care Consult pulm Moderate protein energy malnutrition Elevated LFT's Continue PEG tube feeds ST consulted for evaluation Change diet per ST Diabetes mellitus type 1 Follow blood sugars Insulin sliding scale Diabetic diet Continue Levemir DVT prophylaxis SCD heparin SQ Discharge Planning Palliative care following. Son is considering withdrawal of care in 2 weeks if no improvement is seen, and based on pending repeat imaging. Jamin Roberts is the decision-maker. Discharge Planning Palliative care is following Son expected to make decision in next week or so for withdrawal life support decision Patient imprpved some Pulm ff for trach. Trach is capped ST eval diet change per ST indications. Discussed with the nurse Problem Qualifiers (1) Leukocytosis: Qualified Codes: D72.829 - Elevated white blood cell count, unspecified (2) Hypotension: Qualified Codes: I95.9 - Hypotension, unspecified (3) DM type 1 (diabetes mellitus, type 1): Qualified Codes: E10.69 - Type 1 diabetes mellitus with other specified complication; E10.65 - Type 1 diabetes mellitus with hyperglycemia (4) DKA (diabetic ketoacidoses): Qualified Codes: E10.11 - Type 1 diabetes mellitus with ketoacidosis with coma (5) Acute renal failure: Qualified Codes: N17.9 - Acute kidney failure, unspecified Allie Davis MD Jan 18, 2018 09:34
[2018-01-18] MEDS: INSULIN DETEMIR 100 UNITS/ML VIAL SQ SCH (12:00)
[2018-01-18] MEDS: RESP: ALBUTEROL 2.5 MG/IPRATROPIUM 0.5 MG NEB (PRN) NEB (19:28)
[2018-01-19] VITALS (11 sets, daily range): BP systolic 125–149; BP diastolic 63–95; PULSE 82–99; RESP 16; TEMP 98.5–98.8; O2SAT 86–99
[2018-01-19] MEDS: INSULIN DETEMIR 100 UNITS/ML VIAL SQ SCH ×2 (00:23→12:00)
[2018-01-19] MEDS: INSULIN ASPART SUPPLEMENTAL SCALE SQ SCH ×4 (00:23→18:00)
[2018-01-19] MEDS: HEPARIN SODIUM - SQ 10,000 UNITS/ML VIAL SQ SCH ×3 (01:47→18:00)
[2018-01-19] MEDS: [UNRECOGNIZED DRUG - REMARK] PEG SCH ×4 (04:04→22:29)
[2018-01-19] MEDS: RESP: ALBUTEROL 2.5 MG/IPRATROPIUM 0.5 MG NEB (PRN) NEB ×2 (06:40→09:27)
--- NOTE | 2018-01-19 08:45 | HHI.PR ---
Subjective Remarks In the bed/chair, smiling, nods. yes/no. Follows some commands. No events overnighr. Noted with more secretions in the morning today. Pulm is ff. Objective Vitals Vital Signs Date Time Temp Pulse Resp B/P (MAP) Pulse Ox O2 Delivery O2 Flow Rate FiO2 01/19/18 04:19 98.5 82 16 130/71 (90) 99 01/19/18 00:07 98.7 86 16 125/77 (93) 86 01/18/18 20:01 97.7 89 14 135/78 (97) 98 01/18/18 20:01 98 Room Air 5.00 21 01/18/18 19:30 97 21 01/18/18 16:00 99.0 75 16 150/90 (110) 98 01/18/18 12:00 98.7 89 16 131/78 (95) 97 01/18/18 09:04 96 21 I/O 01/18/18 01/18/18 01/18/18 01/19/18 01/19/18 01/19/18 06:59 14:59 22:59 06:59 14:59 22:59 Intake Total 1104 ml 1100 ml Output Total 700 ml 500 ml 900 ml Balance 404 ml 600 ml -900 ml Tube Feeding 604 ml 600 ml Tube Irrigant 500 ml Other 500 ml Output Urine Total 700 ml 500 ml 900 ml Imaging Last Impressions Chest X-Ray 12/23/17 0600 Signed Impressions: Service Date/Time: Saturday, December 23, 2017 04:28 - CONCLUSION: Consolidations and pleural effusions are unchanged. Tracheostomy tube in good position. Landon Graham MD Liver Ultrasound 12/22/17 0000 Signed Impressions: Service Date/Time: Friday, December 22, 2017 09:40 - CONCLUSION: 1. Liver demonstrates no acute finding. However, there is a small volume of free fluid in the abdomen in a perihepatic location. 2. Persistent but overall decreased gallbladder wall thickening. 3. Bilateral pleural effusions. Uziel Troy MD Hepatobiliary Scan Nuclear Medicine 12/18/17 0000 Signed Impressions: Service Date/Time: Monday, December 18, 2017 10:53 - CONCLUSION: 1. Normal uptake and excretion of radiotracer. Dimitri Bird MD ADDENDUM: The there is a air in the report under the medication sections it should read cholecystokinin was administered by slow infusion over 8 minutes beginning at the 60 minute jyoti. Dimitri Bird MD Abdomen/Pelvis CT 12/17/17 Signed Impressions: Service Date/Time: Sunday, December 17, 2017 15:44 - CONCLUSION: 1. There is a trace amount of free air in the upper abdomen anterior to left lobe of the liver and adjacent to the stomach. While nonspecific, this could be related to the G-tube. Suggest correlating with the clinical examination for signs of acute abdomen which would indicate a more concerning cause. 2. Moderately distended ascending and transverse colon. However, no anatomic obstruction is visualized. 3. Signs of fluid overload including bilateral pleural effusions, anasarca, periportal edema, and small volume of free fluid in the abdomen and pelvis. Uziel Troy MD Upper Extremity Ultrasound 12/15/17 0000 Signed Impressions: Service Date/Time: Friday, December 15, 2017 13:57 - CONCLUSION: Nonocclusive thrombus within left internal jugular vein. The remaining venous structures in the left upper extremity appear patent. Uziel Thomas MD Neck CTA 12/11/17 0000 Signed Impressions: Service Date/Time: Monday, December 11, 2017 23:08 - CONCLUSION: No carotid stenosis. Ac Davis MD Head CTA 12/11/17 0000 Signed Impressions: Service Date/Time: Monday, December 11, 2017 23:08 - CONCLUSION: 1. No large vessel stenosis or aneurysm. Ac Davis MD Brain MRI 12/11/17 0000 Signed Impressions: Service Date/Time: Monday, December 11, 2017 11:12 - CONCLUSION: 1. Faint diffusion restriction predominately along the high right parietal convexity with minimal diffusion restriction on the left. Pattern is somewhat unusual for anoxia with the asymmetry. Possible embolic event. CTA of the cervical and intracranial vessels to be performed for further characterization. 2. Chronic changes with some periventricular small vessel ischemic demyelination. 3. Mild ventricular prominence. In the appropriate clinical setting, findings could represent normal pressure hydrocephalus. 4. Bilateral mastoiditis. Mild chronic sinus disease in the sphenoid bilaterally. Dani Titus MD Gall Bladder Ultrasound 12/03/17 0000 Signed Impressions: Service Date/Time: Sunday, December 03, 2017 07:59 - CONCLUSION: 1. Ascites and bilateral pleural effusions. 2. Mildly distended gallbladder without evidence of wall thickening or cholelithiasis. 3. Otherwise unremarkable exam. Boo Cartwright MD Lumbar Puncture Fluoroscopy 12/02/17 0000 Signed Impressions: Service Date/Time: Saturday, December 02, 2017 15:28 - CONCLUSION: Uncomplicated fluoroscopically guided lumbar puncture. Aly Leigh MD Renal Ultrasound 11/29/17 1656 Signed Impressions: Service Date/Time: Wednesday, November 29, 2017 13:16 - CONCLUSION: 1. Both kidneys are sonographically normal without hydronephrosis or nephrolithiasis. 2. Very abnormal appearance of the gallbladder with mural thickening and minimal pericholecystic fluid Dani Titus MD Head CT 11/28/17 0000 Signed Impressions: Service Date/Time: November 15:46 - CONCLUSION: 1. Ventriculomegaly suggesting central cerebral atrophy versus hydrocephalus. Clinical correlation is recommended. 2. No acute infarct, acute hemorrhage, midline shift or extra-axial fluid collections. Dev Christopher MD Objective Remarks GENERAL: Nonverbal, nods/yes/no to questions, chronically ill patient, appears in nad. Trach is capped SKIN: Trach is capped. NECK: Trachea midline. No JVD. CARDIOVASCULAR: Regular rate and rhythm. RESPIRATORY: Trach capped. No secretions. No accessory muscle use. Clear to auscultation. Breath sounds equal bilaterally. GASTROINTESTINAL: Abdomen soft, non-tender, nondistended. Hepatic and splenic margins not palpable. NEUROLOGICAL: More awake and alert. Tracking, follows some commands. Contracted. Procedures 12/02- lumbar puncture Date of Insertion: Nov 28, 2017 Line: Central Venous Catheter Side: Left Location: Internal, Jugular A/P Problem List: (1) Macrocytic anemia ICD Code: D53.9 - Nutritional anemia, unspecified (2) Leukocytosis ICD Code: D72.829 - Elevated white blood cell count, unspecified Status: Resolved (3) Acute kidney injury ICD Code: N17.9 - Acute kidney failure, unspecified (4) Hyponatremia ICD Code: E87.1 - Hypo-osmolality and hyponatremia (5) Hypotension ICD Code: I95.9 - Hypotension, unspecified (6) DM type 1 (diabetes mellitus, type 1) ICD Code: E10.9 - DM type 1 (diabetes mellitus, type 1) Status: Acute (7) DKA (diabetic ketoacidoses) ICD Code: E13.10 - Other specified diabetes mellitus with ketoacidosis without coma Status: Resolved (8) Acute renal failure ICD Code: N17.9 - Acute kidney failure, unspecified Status: Acute (9) Hyperkalemia ICD Code: E87.5 - Hyperkalemia Status: Acute (10) Shock ICD Code: R57.9 - Shock, unspecified Status: Acute (11) Tobacco abuse ICD Code: Z72.0 - Tobacco abuse Status: Acute Assessment and Plan 62-year-old female with long-term tracheostomy and PEG tube secondary to encephalopathy. Etiology for encephalopathy is related to diabetic ketoacidosis related to type 1 diabetes. Respiratory failure and shock are present at admit. Improving. Trach is capped, however noted with more secretions today. More awake and alert. Nods yes/no . Patient appears stable at this time. Encephalopathy, improving Mild very gradual improvement given that the patient now awakens to her name/ voice and is not visually tracking Likely long-term Continue monitoring neurological status Palliative care following Elevated troponin Chronic systolic heart failure NSTEMI Cardiomyopathy Continue atorvastatin Continue aspirin Most recent ejection fraction 40% Acute hypoxemic respiratory failure Tracheostomy continue oxygenation as needed Continue pulmonary toilet Continue tracheostomy care Consult pulm Moderate protein energy malnutrition Elevated LFT's Continue PEG tube feeds ST consulted for evaluation Change diet per ST Diabetes mellitus type 1 Follow blood sugars Insulin sliding scale Diabetic diet Continue Levemir DVT prophylaxis SCD heparin SQ Discharge Planning Palliative care following. Son is considering withdrawal of care in 2 weeks if no improvement is seen, and based on pending repeat imaging. Jamin Robetrs is the decision-maker. Discharge Planning Palliative care is following Son expected to make decision in next week or so for withdrawal life support decision Patient imprpved some Pulm ff for trach. Trach is capped ST eval diet change per ST indications. Discussed with the nurse, respiratory therapist Problem Qualifiers (1) Leukocytosis: Qualified Codes: D72.829 - Elevated white blood cell count, unspecified (2) Hypotension: Qualified Codes: I95.9 - Hypotension, unspecified (3) DM type 1 (diabetes mellitus, type 1): Qualified Codes: E10.69 - Type 1 diabetes mellitus with other specified complication; E10.65 - Type 1 diabetes mellitus with hyperglycemia (4) DKA (diabetic ketoacidoses): Qualified Codes: E10.11 - Type 1 diabetes mellitus with ketoacidosis with coma (5) Acute renal failure: Qualified Codes: N17.9 - Acute kidney failure, unspecified Allie Davis MD Jan 19, 2018 08:45
[2018-01-19] MEDS: SODIUM CHLORIDE 0.9% FLUSH 10 ML FLUSH IV FLUSH SCH ×3 (09:00→22:29)
[2018-01-19] MEDS: ASPIRIN 81 MG CHEW TAB PEG SCH (10:23)
[2018-01-19] MEDS: FAMOTIDINE 20 MG TAB PEG SCH ×2 (10:23→22:29)
[2018-01-19] MEDS: URSODIOL 300 MG CAP PO SCH ×2 (10:23→22:29)
[2018-01-19] MEDS: CARVEDILOL 12.5 MG TAB PEG SCH ×2 (10:24→22:29)
[2018-01-20] VITALS (9 sets, daily range): BP systolic 102–132; BP diastolic 60–76; PULSE 69–113; RESP 16–18; TEMP 97.1–98.9; O2SAT 96–99
[2018-01-20] MEDS: DEXTROSE 50% IN WATER 50 ML VIAL(D50) IV PUSH PRN (00:35)
[2018-01-20] MEDS: INSULIN DETEMIR 100 UNITS/ML VIAL SQ SCH ×3 (00:49→23:30)
[2018-01-20] MEDS: HEPARIN SODIUM - SQ 10,000 UNITS/ML VIAL SQ SCH ×3 (02:30→18:00)
[2018-01-20] MEDS: [UNRECOGNIZED DRUG - REMARK] PEG SCH ×4 (04:00→21:17)
[2018-01-20] MEDS: INSULIN ASPART SUPPLEMENTAL SCALE SQ SCH ×4 (06:00→18:00)
--- NOTE | 2018-01-20 08:10 | HHI.PR ---
Subjective Remarks Appears in nad Trach capped sattig well No events overnight. VSS Objective Vitals Vital Signs Date Time Temp Pulse Resp B/P (MAP) Pulse Ox O2 Delivery O2 Flow Rate FiO2 01/20/18 07:15 Room Air 01/20/18 04:00 97.1 100 16 132/76 (94) 99 01/20/18 00:00 98.1 69 16 102/60 (74) 97 01/19/18 20:13 98 21 01/19/18 20:00 98.5 99 16 149/95 (113) 94 01/19/18 19:00 Room Air 01/19/18 16:53 97 21 01/19/18 16:00 98.8 90 16 146/87 (106) 99 01/19/18 12:00 98.5 90 16 132/63 (86) 99 01/19/18 09:36 96 Trach Collar 5.00 28 01/19/18 09:20 96 21 I/O 01/19/18 01/19/18 01/19/18 01/20/18 01/20/18 01/20/18 07:00 15:00 23:00 07:00 15:00 23:00 Intake Total 1100 ml 1093 ml Output Total 900 ml 500.0 ml 850 ml Balance -900 ml 600.0 ml 243 ml Tube Feeding 600 ml 593 ml Other 500 ml 500 ml Output Urine Total 900 ml 500 ml 850 ml Tube Feeding Residual Discard 0 ml # Bowel Movements 0 0 Imaging Last Impressions Chest X-Ray 12/23/17 0600 Signed Impressions: Service Date/Time: Saturday, December 23, 2017 04:28 - CONCLUSION: Consolidations and pleural effusions are unchanged. Tracheostomy tube in good position. Landon Graham MD Liver Ultrasound 12/22/17 0000 Signed Impressions: Service Date/Time: Friday, December 22, 2017 09:40 - CONCLUSION: 1. Liver demonstrates no acute finding. However, there is a small volume of free fluid in the abdomen in a perihepatic location. 2. Persistent but overall decreased gallbladder wall thickening. 3. Bilateral pleural effusions. Uziel Troy MD Hepatobiliary Scan Nuclear Medicine 12/18/17 0000 Signed Impressions: Service Date/Time: Monday, December 18, 2017 10:53 - CONCLUSION: 1. Normal uptake and excretion of radiotracer. Dimitri Bird MD ADDENDUM: The there is a air in the report under the medication sections it should read cholecystokinin was administered by slow infusion over 8 minutes beginning at the 60 minute joyti. Dimitri Bird MD Abdomen/Pelvis CT 12/17/17 0000 Signed Impressions: Service Date/Time: Sunday, December 17, 2017 15:44 - CONCLUSION: 1. There is a trace amount of free air in the upper abdomen anterior to left lobe of the liver and adjacent to the stomach. While nonspecific, this could be related to the G-tube. Suggest correlating with the clinical examination for signs of acute abdomen which would indicate a more concerning cause. 2. Moderately distended ascending and transverse colon. However, no anatomic obstruction is visualized. 3. Signs of fluid overload including bilateral pleural effusions, anasarca, periportal edema, and small volume of free fluid in the abdomen and pelvis. Uziel Troy MD Upper Extremity Ultrasound 12/15/17 Signed Impressions: Service Date/Time: Friday, December 15, 2017 13:57 - CONCLUSION: Nonocclusive thrombus within left internal jugular vein. The remaining venous structures in the left upper extremity appear patent. Uziel Thomas MD Neck CTA 12/11/17 0000 Signed Impressions: Service Date/Time: Monday, December 11, 2017 23:08 - CONCLUSION: No carotid stenosis. Ac Davis MD Head CTA 12/11/17 0000 Signed Impressions: Service Date/Time: Monday, December 11, 2017 23:08 - CONCLUSION: 1. No large vessel stenosis or aneurysm. Ac Davis MD Brain MRI 12/11/17 0000 Signed Impressions: Service Date/Time: Monday, December 11, 2017 11:12 - CONCLUSION: 1. Faint diffusion restriction predominately along the high right parietal convexity with minimal diffusion restriction on the left. Pattern is somewhat unusual for anoxia with the asymmetry. Possible embolic event. CTA of the cervical and intracranial vessels to be performed for further characterization. 2. Chronic changes with some periventricular small vessel ischemic demyelination. 3. Mild ventricular prominence. In the appropriate clinical setting, findings could represent normal pressure hydrocephalus. 4. Bilateral mastoiditis. Mild chronic sinus disease in the sphenoid bilaterally. Dani Titus MD Gall Bladder Ultrasound 12/03/17 0000 Signed Impressions: Service Date/Time: Sunday, December 03, 2017 07:59 - CONCLUSION: 1. Ascites and bilateral pleural effusions. 2. Mildly distended gallbladder without evidence of wall thickening or cholelithiasis. 3. Otherwise unremarkable exam. Boo Cartwright MD Lumbar Puncture Fluoroscopy 12/02/17 0000 Signed Impressions: Service Date/Time: Saturday, December 02, 2017 15:28 - CONCLUSION: Uncomplicated fluoroscopically guided lumbar puncture. Aly Leigh MD Renal Ultrasound 11/29/17 1656 Signed Impressions: Service Date/Time: Wednesday, November 29, 2017 13:16 - CONCLUSION: 1. Both kidneys are sonographically normal without hydronephrosis or nephrolithiasis. 2. Very abnormal appearance of the gallbladder with mural thickening and minimal pericholecystic fluid Dani Titus MD Head CT 11/28/17 0000 Signed Impressions: Service Date/Time: November 15:46 - CONCLUSION: 1. Ventriculomegaly suggesting central cerebral atrophy versus hydrocephalus. Clinical correlation is recommended. 2. No acute infarct, acute hemorrhage, midline shift or extra-axial fluid collections. Dev Christopher MD Objective Remarks GENERAL: Nonverbal, nods/yes/no to questions, chronically ill patient, appears in nad. Trach is capped SKIN: Trach is capped. NECK: Trachea midline. No JVD. CARDIOVASCULAR: Regular rate and rhythm. RESPIRATORY: Trach capped. No secretions. No accessory muscle use. Clear to auscultation. Breath sounds equal bilaterally. GASTROINTESTINAL: Abdomen soft, non-tender, nondistended. Hepatic and splenic margins not palpable. NEUROLOGICAL: More awake and alert. Tracking, follows some commands. Contracted. Procedures 12/02- lumbar puncture Date of Insertion: Nov 28, 2017 Line: Central Venous Catheter Side: Left Location: Internal, Jugular A/P Problem List: (1) Macrocytic anemia ICD Code: D53.9 - Nutritional anemia, unspecified (2) Leukocytosis ICD Code: D72.829 - Elevated white blood cell count, unspecified Status: Resolved (3) Acute kidney injury ICD Code: N17.9 - Acute kidney failure, unspecified (4) Hyponatremia ICD Code: E87.1 - Hypo-osmolality and hyponatremia (5) Hypotension ICD Code: I95.9 - Hypotension, unspecified (6) DM type 1 (diabetes mellitus, type 1) ICD Code: E10.9 - DM type 1 (diabetes mellitus, type 1) Status: Acute (7) DKA (diabetic ketoacidoses) ICD Code: E13.10 - Other specified diabetes mellitus with ketoacidosis without coma Status: Resolved (8) Acute renal failure ICD Code: N17.9 - Acute kidney failure, unspecified Status: Acute (9) Hyperkalemia ICD Code: E87.5 - Hyperkalemia Status: Acute (10) Shock ICD Code: R57.9 - Shock, unspecified Status: Acute (11) Tobacco abuse ICD Code: Z72.0 - Tobacco abuse Status: Acute Assessment and Plan 62-year-old female with long-term tracheostomy and PEG tube secondary to encephalopathy. Etiology for encephalopathy is related to diabetic ketoacidosis related to type 1 diabetes. Respiratory failure and shock are present at admit. Improving. Trach is capped satting well. Patient appears stable at this time. Encephalopathy, improving Mild very gradual improvement given that the patient now awakens to her name/ voice and is not visually tracking Likely long-term Continue monitoring neurological status Palliative care following Elevated troponin Chronic systolic heart failure NSTEMI Cardiomyopathy Continue atorvastatin Continue aspirin Most recent ejection fraction 40% Acute hypoxemic respiratory failure Tracheostomy continue oxygenation as needed Continue pulmonary toilet Continue tracheostomy care Consult pulm Moderate protein energy malnutrition Elevated LFT's Continue PEG tube feeds ST consulted for evaluation Change diet per ST Diabetes mellitus type 1 Follow blood sugars Insulin sliding scale Diabetic diet Continue Levemir DVT prophylaxis SCD heparin SQ Discharge Planning Palliative care following. Son is considering withdrawal of care in 2 weeks if no improvement is seen, and based on pending repeat imaging. Jamin Roberts is the decision-maker. Discharge Planning Palliative care is following Son expected to make decision in next week or so for withdrawal life support decision Patient imprpved some Pulm ff for trach. Trach is capped ST eval diet change per ST indications. Discussed with the nurse, respiratory therapist Problem Qualifiers (1) Leukocytosis: Qualified Codes: D72.829 - Elevated white blood cell count, unspecified (2) Hypotension: Qualified Codes: I95.9 - Hypotension, unspecified (3) DM type 1 (diabetes mellitus, type 1): Qualified Codes: E10.69 - Type 1 diabetes mellitus with other specified complication; E10.65 - Type 1 diabetes mellitus with hyperglycemia (4) DKA (diabetic ketoacidoses): Qualified Codes: E10.11 - Type 1 diabetes mellitus with ketoacidosis with coma (5) Acute renal failure: Qualified Codes: N17.9 - Acute kidney failure, unspecified Allie Davis MD Jan 20, 2018 08:10
[2018-01-20] MEDS: FAMOTIDINE 20 MG TAB PEG SCH ×2 (10:00→21:17)
[2018-01-20] MEDS: SODIUM CHLORIDE 0.9% FLUSH 10 ML FLUSH IV FLUSH SCH ×3 (10:00→21:17)
[2018-01-20] MEDS: URSODIOL 300 MG CAP PO SCH ×2 (10:00→21:17)
[2018-01-20] MEDS: ASPIRIN 81 MG CHEW TAB PEG SCH (10:00)
[2018-01-20] MEDS: CARVEDILOL 12.5 MG TAB PEG SCH ×2 (10:00→21:16)
--- NOTE | 2018-01-20 16:55 | HHI.HCPN ---
Reason for visit a. To assist with evaluation and management of symptoms including: Weakness , encephalopathy b. To assist medical decision maker(s) with: better understanding of current medical conditions; weighing benefits/burdens of medical treatment options; making medical treatment decisions. Subjective/Interval History Patient seen to follow-up on symptoms of weakness, encephalopathy. Patient is awake and alert today. She makes eye contact, tracks examiner and smiles. Left mouth droop noted. She is sitting up in a stretcher chair, left flaccidity remains 0/5 since admision. She is drinking a milkshake through a straw with no signs or symptoms of overt aspiration. She is able now to lift her head partially, make eye contact and is speaking more often with stronger voice. Her mother and son are at bedside and she makes eye contact, interacts, follows direction and smiles at jokes. She appears to understand questions and attempts to answer. Cognition and alertness appear to be improving since visit last week. She continues to have good strength in her right hand and uses it to reposition her left hand, grasp a cup and reposition herself. She is not seen to move her lower extremities and does appear to have some level of foot drop. . Family/friend interactions Patient's mother and son are at bedside. They are interested in pursuing therapy at [facility], who has evaluated the patient but feels she needs a little bit more time to maximize her ability to participate in therapy. Family is considering final placement discharge options and would prefer that patient return home if at all possible. She has a very supportive local family who could provide some assistance. . Advance Directives Living Will: Never completed Health Care Surrogate: Never completed Durable Power of Overhauler Helper: Never completed Advance Directive Specifics Date completed: None completed. . Health Care Surrogate(s): None available. Per [place] statutes, her son Jamin would be the healthcare proxy and is willing to serve. . Documented care wishes: No documented care wishes available. . Objective Vital Signs Date Time Temp Pulse Resp B/P (MAP) Pulse Ox O2 Delivery O2 Flow Rate FiO2 01/20/18 12:00 98.0 92 18 107/73 (84) 99 01/20/18 08:00 98.0 87 18 116/69 (85) 99 01/20/18 07:15 Room Air 01/20/18 04:00 97.1 100 16 132/76 (94) 99 01/20/18 00:00 98.1 69 16 102/60 (74) 97 01/19/18 20:13 98 21 01/19/18 20:00 98.5 99 16 149/95 (113) 94 01/19/18 19:00 Room Air 01/19/18 16:53 97 21 Intake & Output 01/20/18 01/20/18 07:00 19:00 Intake Total 1093 ml Output Total 850 ml 0 ml Balance 243 ml 0 ml Tube Feeding 593 ml Other 500 ml Output Urine Total 850 ml Tube Feeding Residual Discard 0 ml 0 ml # Bowel Movements 0 Physical Exam CONSTITUTIONAL/GENERAL: This is an adequately nourished patient, awake, up in stretcher chair, smiling, interactive, drinking a milkshake through a straw. TUBES/LINES/DRAINS: PIV Méndez catheter . Trach, PEG SKIN: No jaundice, rashes, or lesions. No wounds seen anteriorly. Skin warm/ dry HEAD: Atraumatic. Normocephalic. EYES: Pupils equal and round and reactive. No scleral icterus. No injection or drainage. Fundi not examined. ENT: Nose without bleeding or purulent drainage. Left mouth droop noted CARDIOVASCULAR: Regular rate and rhythm without murmur. No JVD. Peripheral pulses symmetric. RESPIRATORY/CHEST: Symmetric, unlabored respirations via trach. No wheezes, rhonchi or crackles. GASTROINTESTINAL: Abdomen soft, round, nondistended. No palpable masses. Bowel sounds normoactive. TF infusing. GENITOURINARY: Without palpable bladder distension. Méndez catheter in place clear, yellow urine. MUSCULOSKELETAL: Extremities without clubbing, cyanosis. No mottling or clubbing. Left arm flaccid, bilateral lower extremities with foot drop, extreme weakness. LYMPHATICS: No palpable cervical or supraclavicular adenopathy. NEUROLOGICAL: Awake, smiles, tracks examiner, moves right arm, no spontaneous movement from remaining 3 extremities. PSYCHIATRIC: Calm, appropriate . Diagnostic Tests Procedures 11/29: Orotracheal intubation 11/29: Right chest tube placement secondary to iatrogenic pneumothorax. 11/29: Bronchoscopy 11/29: Left IJ central line placement 11/30: Bronchoscopy 12/16: Bronchoscopy 12/16: Upper endoscopy with PEG tube placement . Assessment and Plan Disease Oriented Problem List: (1) Hyperkalemia (2) Acute renal failure (3) DKA (diabetic ketoacidoses) (4) Altered mental status (5) Metabolic acidosis (6) Hypotension (7) Seizure cerebral (8) Encephalopathy, metabolic (9) NSTEMI (non-ST elevated myocardial infarction) (10) UTI (urinary tract infection) (11) Type 1 diabetes (12) Leukocytosis (13) Respiratory failure (14) Hypertension Symptom Scale: (1) Encephalopathy 0-10 Scale: Unable to quantify (2) Dyspnea 0-10 Scale: Unable to quantify Pertinent Non-Medical Issues Psychosocial:Originally from [facility], moved here to [place] about 3 years ago to be closer to her sister and mother. Her son Jamin lives in [place]. 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 Supported locally by her sister , and significant other León De León. Patient and her sister Evelyn take turns helping to care for their mother who is in her 90s. Spiritual:[employer], attended [employer]. Would appreciate health care sanitary technician visits per significant other. Legal:Pt unable to participate due to encephalopathy, not clear she will regain ability to participate. Her sister has been involved in her care and decisions. She also is reported to have one son who lives in [place]. Not known at this time if she has advanced directives or health care surrogate designation. If she does not have advanced directives, then her son or any additional children would be appropriate legal proxy per [place] statutes ( if they wish to serve as such). Ethical issues impacting care: No ethical issues identified. Important Contacts sister Evelyn Obrien at [phone] Son Jamin (in [place]) Significant other León De León [phone]/ [phone] . Prognosis This patient was initially admitted for altered mental status, findings of DKA. She also suffered acute renal failure, respiratory failure. She were now remains profoundly encephalopathic on mechanical vent at this time unable to medically wean. 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 It is likely she will require tracheostomy and PEG tube to continue aggressive treatment course. . Code Status: No Code Plan * Legal decision maker:Pt unable to participate due to encephalopathy, not clear she will regain ability to participate. Her son, Jamin, has traveled from [place] to assist in decision making and per [place] Statutes, in the absence of Advanced Directives, he would be the legal proxy decision maker. * Goals: Comfort oriented. * CODE STATUS: DO NOT RESUSCITATE * SYMPTOMS: --Encephalopathy-admitted with DKA, altered mental status. Initial MRI, CSF etc. negative. Repeat MRI findings area of diffusion restriction on right parietal convexity with less diffusion restriction on the left. Consistent with 12/11 EEG showing severe encephalopathy with more prominent slowing over the right hemisphere. CTA of neck and brain showed no acute findings. Now awake, showing significantly more alertness, improved cognition, following commands with right hand. Now beginning to speak on [place] valve. Would recommend PT/OT every day to facilitate transfer to rehab as soon as possible. --Weakness-not moving left arm or bilateral legs. It is uncertain whether this is related to extended bedbound course versus hypoxic/anoxic injury from DKA on admission. There is concern for contracture in the left upper extremity. Recommend OT to address left arm for possible contracture * Palliative care will continue to follow during hospital course as condition evolves, to assist patient/decision-maker with understanding of medical conditions, weighing benefits/burdens of treatment options, for clarification of goals of treatment. Additionally will assist with any symptoms of palliative concern . Attestation To help prompt me to consider important information that might be impacting today's encounter and assessment, information from prior notes written by myself or my colleagues may have been "brought forward" into today's note. My signature on this note, however, is an attestation that I personally performed the exam, history, and/or decision-making noted today, and, unless otherwise indicated, the interactions with patient, family, and staff as well as the review of records all occurred today. I also attest that the listed assessment and stated plan reflect my best clinical judgment today based on the combination of historical information, prior notes, and today's exam/ interactions. When time spent is documented, it refers only to time spent today by the signer, or if indicated, combined time spent today by collaborating physician/nurse practitioner. . Marii Horowitz Jan 20, 2018 16:55
[2018-01-20] MEDS: LACTULOSE SYRUP 20 GM/30 ML CUP PEG PRN (21:17)
[2018-01-20] MEDS: RESP: ALBUTEROL 2.5 MG/IPRATROPIUM 0.5 MG NEB (PRN) NEB (21:22)
[2018-01-21] VITALS (7 sets, daily range): BP systolic 100–144; BP diastolic 55–70; PULSE 88–112; RESP 16–24; TEMP 98.5–99.8; O2SAT 97–100
[2018-01-21] MEDS: HEPARIN SODIUM - SQ 10,000 UNITS/ML VIAL SQ SCH ×3 (01:48→17:40)
[2018-01-21] MEDS: [UNRECOGNIZED DRUG - REMARK] PEG SCH ×4 (03:28→22:00)
[2018-01-21] MEDS: INSULIN ASPART SUPPLEMENTAL SCALE SQ SCH ×3 (06:00→17:39)
[2018-01-21] MEDS: CARVEDILOL 12.5 MG TAB PEG SCH ×2 (08:01→20:39)
[2018-01-21] MEDS: FAMOTIDINE 20 MG TAB PEG SCH ×2 (08:01→20:40)
[2018-01-21] MEDS: ASPIRIN 81 MG CHEW TAB PEG SCH (08:01)
[2018-01-21] MEDS: SODIUM CHLORIDE 0.9% FLUSH 10 ML FLUSH IV FLUSH SCH ×3 (08:01→20:40)
[2018-01-21] MEDS: URSODIOL 300 MG CAP PO SCH ×2 (08:02→20:40)
--- NOTE | 2018-01-21 11:17 | HHI.PR ---
Subjective Remarks The patient was resting in bed. Her friend was at the bedside. She was trying to talk with her trach capped. She denied any acute complaints. Discussed with nursing. Objective Vitals Vital Signs Date Time Temp Pulse Resp B/P (MAP) Pulse Ox O2 Delivery O2 Flow Rate FiO2 01/21/18 08:04 99 Trach Collar 21 01/21/18 08:00 99.8 90 20 115/68 (84) 100 01/21/18 07:00 Room Air 01/21/18 04:00 98.9 107 16 109/55 (73) 100 01/21/18 00:00 99.1 93 18 100/57 (71) 99 01/20/18 21:41 5.00 21 01/20/18 21:23 96 21 01/20/18 20:00 98.9 113 18 124/63 (83) 97 01/20/18 19:00 Room Air 01/20/18 18:00 111 18 132/66 (88) 97 01/20/18 17:39 97 CAPPED 21 01/20/18 16:00 98.6 112 16 130/65 (86) 98 01/20/18 12:00 98.0 92 18 107/73 (84) 99 I/O 01/20/18 01/20/18 01/20/18 01/21/18 01/21/18 01/21/18 07:00 15:00 23:00 07:00 15:00 23:00 Intake Total 1093 ml 750 ml 1094 ml Output Total 850 ml 0 ml 600.0 ml 700 ml 0 ml Balance 243 ml 0 ml 150.0 ml 394 ml 0 ml Tube Feeding 593 ml 250 ml 594 ml Other 500 ml 500 ml 500 ml Output Urine Total 850 ml 600 ml 700 ml Tube Feeding Residual Discard 0 ml 0 ml 0 ml # Bowel Movements 0 0 0 Imaging Last Impressions Chest X-Ray 12/23/17 0600 Signed Impressions: Service Date/Time: Saturday, December 23, 2017 04:28 - CONCLUSION: Consolidations and pleural effusions are unchanged. Tracheostomy tube in good position. Landon Graham MD Liver Ultrasound 12/22/17 0000 Signed Impressions: Service Date/Time: Friday, December 22, 2017 09:40 - CONCLUSION: 1. Liver demonstrates no acute finding. However, there is a small volume of free fluid in the abdomen in a perihepatic location. 2. Persistent but overall decreased gallbladder wall thickening. 3. Bilateral pleural effusions. Uziel Troy MD Hepatobiliary Scan Nuclear Medicine 12/18/17 Signed Impressions: Service Date/Time: Monday, December 18, 2017 10:53 - CONCLUSION: 1. Normal uptake and excretion of radiotracer. Dimitri Bird MD ADDENDUM: The there is a air in the report under the medication sections it should read cholecystokinin was administered by slow infusion over 8 minutes beginning at the 60 minute jyoti. Dimitri Bird MD Abdomen/Pelvis CT 12/17/17 Signed Impressions: Service Date/Time: Sunday, December 17, 2017 15:44 - CONCLUSION: 1. There is a trace amount of free air in the upper abdomen anterior to left lobe of the liver and adjacent to the stomach. While nonspecific, this could be related to the G-tube. Suggest correlating with the clinical examination for signs of acute abdomen which would indicate a more concerning cause. 2. Moderately distended ascending and transverse colon. However, no anatomic obstruction is visualized. 3. Signs of fluid overload including bilateral pleural effusions, anasarca, periportal edema, and small volume of free fluid in the abdomen and pelvis. Uziel Troy MD Upper Extremity Ultrasound 12/15/17 Signed Impressions: Service Date/Time: Friday, December 15, 2017 13:57 - CONCLUSION: Nonocclusive thrombus within left internal jugular vein. The remaining venous structures in the left upper extremity appear patent. Uziel Thomas MD Neck CTA 12/11/17 Signed Impressions: Service Date/Time: Monday, December 11, 2017 23:08 - CONCLUSION: No carotid stenosis. cA Davis MD Head CTA 12/11/17 Signed Impressions: Service Date/Time: Monday, December 11, 2017 23:08 - CONCLUSION: 1. No large vessel stenosis or aneurysm. Ac Davis MD Brain MRI 12/11/17 Signed Impressions: Service Date/Time: Monday, December 11, 2017 11:12 - CONCLUSION: 1. Faint diffusion restriction predominately along the high right parietal convexity with minimal diffusion restriction on the left. Pattern is somewhat unusual for anoxia with the asymmetry. Possible embolic event. CTA of the cervical and intracranial vessels to be performed for further characterization. 2. Chronic changes with some periventricular small vessel ischemic demyelination. 3. Mild ventricular prominence. In the appropriate clinical setting, findings could represent normal pressure hydrocephalus. 4. Bilateral mastoiditis. Mild chronic sinus disease in the sphenoid bilaterally. Dani Titus MD Gall Bladder Ultrasound 12/03/17 0000 Signed Impressions: Service Date/Time: Sunday, December 03, 2017 07:59 - CONCLUSION: 1. Ascites and bilateral pleural effusions. 2. Mildly distended gallbladder without evidence of wall thickening or cholelithiasis. 3. Otherwise unremarkable exam. Boo Cartwright MD Lumbar Puncture Fluoroscopy 12/02/17 0000 Signed Impressions: Service Date/Time: Saturday, December 02, 2017 15:28 - CONCLUSION: Uncomplicated fluoroscopically guided lumbar puncture. Aly Leigh MD Renal Ultrasound 11/29/17 1656 Signed Impressions: Service Date/Time: Wednesday, November 29, 2017 13:16 - CONCLUSION: 1. Both kidneys are sonographically normal without hydronephrosis or nephrolithiasis. 2. Very abnormal appearance of the gallbladder with mural thickening and minimal pericholecystic fluid Dani Titus MD Head CT 11/28/17 0000 Signed Impressions: Service Date/Time: November 15:46 - CONCLUSION: 1. Ventriculomegaly suggesting central cerebral atrophy versus hydrocephalus. Clinical correlation is recommended. 2. No acute infarct, acute hemorrhage, midline shift or extra-axial fluid collections. Dev Christopher MD Objective Remarks GENERAL: No distress. SKIN: Trach is capped. NECK: Trachea midline. No JVD. CARDIOVASCULAR: Regular rate and rhythm. RESPIRATORY: No secretions. No accessory muscle use. Clear to auscultation. Breath sounds equal bilaterally. GASTROINTESTINAL: Abdomen soft, non-tender, nondistended. Hepatic and splenic margins not palpable. NEUROLOGICAL: More awake and alert. Tracking, follows some commands. Contracted. Able to say one word at a time. Procedures 12/02- lumbar puncture Date of Insertion: Nov 28, 2017 Line: Central Venous Catheter Side: Left Location: Internal, Jugular A/P Problem List: (1) Macrocytic anemia ICD Code: D53.9 - Nutritional anemia, unspecified (2) Leukocytosis ICD Code: D72.829 - Elevated white blood cell count, unspecified Status: Resolved (3) Acute kidney injury ICD Code: N17.9 - Acute kidney failure, unspecified (4) Hyponatremia ICD Code: E87.1 - Hypo-osmolality and hyponatremia (5) Hypotension ICD Code: I95.9 - Hypotension, unspecified (6) DM type 1 (diabetes mellitus, type 1) ICD Code: E10.9 - DM type 1 (diabetes mellitus, type 1) Status: Acute (7) DKA (diabetic ketoacidoses) ICD Code: E13.10 - Other specified diabetes mellitus with ketoacidosis without coma Status: Resolved (8) Acute renal failure ICD Code: N17.9 - Acute kidney failure, unspecified Status: Acute (9) Hyperkalemia ICD Code: E87.5 - Hyperkalemia Status: Acute (10) Shock ICD Code: R57.9 - Shock, unspecified Status: Acute (11) Tobacco abuse ICD Code: Z72.0 - Tobacco abuse Status: Acute Assessment and Plan 62-year-old female with long-term tracheostomy and PEG tube secondary to encephalopathy. Etiology for encephalopathy is related to diabetic ketoacidosis related to type 1 diabetes. Respiratory failure and shock are present at admit. 01/21: Trach is capped, satting well. Able to speak a word at a time. No concerns from nursing. Encephalopathy, improving Mild very gradual improvement given that the patient now awakens to her name/ voice and is not visually tracking Likely long-term Continue monitoring neurological status Palliative care following Elevated troponin Chronic systolic heart failure NSTEMI Cardiomyopathy Continue atorvastatin Continue aspirin Most recent ejection fraction 40% Acute hypoxemic respiratory failure Tracheostomy continue oxygenation as needed Continue pulmonary toilet Continue tracheostomy care Pulmonology following Moderate protein energy malnutrition Elevated LFT's Continue PEG tube feeds ST consulted for evaluation. Change diet per ST Diabetes mellitus type 1 Follow blood sugars Insulin sliding scale Diabetic diet Continue Levemir. Decrease HS dose as has been hypoglycemic in the AM. DVT prophylaxis SCD heparin SQ Problem Qualifiers (1) Leukocytosis: Qualified Codes: D72.829 - Elevated white blood cell count, unspecified (2) Hypotension: Qualified Codes: I95.9 - Hypotension, unspecified (3) DM type 1 (diabetes mellitus, type 1): Qualified Codes: E10.69 - Type 1 diabetes mellitus with other specified complication; E10.65 - Type 1 diabetes mellitus with hyperglycemia (4) DKA (diabetic ketoacidoses): Qualified Codes: E10.11 - Type 1 diabetes mellitus with ketoacidosis with coma (5) Acute renal failure: Qualified Codes: N17.9 - Acute kidney failure, unspecified Shaquille Bell DO Jan 21, 2018 11:17
[2018-01-21] MEDS: INSULIN DETEMIR 100 UNITS/ML VIAL SQ SCH (21:31)
[2018-01-22] VITALS (10 sets, daily range): BP systolic 110–125; BP diastolic 55–69; PULSE 89–98; RESP 20–24; TEMP 97.4–98.7; O2SAT 97–100
[2018-01-22] MEDS: INSULIN ASPART SUPPLEMENTAL SCALE SQ SCH ×5 (00:18→23:29)
[2018-01-22] MEDS: HEPARIN SODIUM - SQ 10,000 UNITS/ML VIAL SQ SCH ×3 (01:37→17:10)
[2018-01-22] MEDS: [UNRECOGNIZED DRUG - REMARK] PEG SCH ×4 (04:00→20:11)
[2018-01-22] MEDS: ASPIRIN 81 MG CHEW TAB PEG SCH (08:22)
[2018-01-22] MEDS: SODIUM CHLORIDE 0.9% FLUSH 10 ML FLUSH IV FLUSH SCH ×3 (08:22→20:11)
[2018-01-22] MEDS: CARVEDILOL 12.5 MG TAB PEG SCH ×2 (08:23→20:11)
[2018-01-22] MEDS: FAMOTIDINE 20 MG TAB PEG SCH ×2 (08:23→20:11)
[2018-01-22] MEDS: URSODIOL 300 MG CAP PO SCH ×2 (08:23→20:11)
[2018-01-22] MEDS ORDERED: INSULIN DETEMIR 100 UNITS/ML VIAL SQ SCH (09:00)
[2018-01-22] MEDS ORDERED: INSULIN DETEMIR 100 UNITS/ML VIAL SQ ONE (11:00)
--- NOTE | 2018-01-22 11:26 | HHI.PR ---
Subjective Remarks The patient was resting comfortably in bed. Nursing was at the bedside. She reported she had to suction earlier on today but otherwise no acute concerns. The pt had a large bowel movement. Patient did not seem to have any acute complaints. Discussed with case management. Objective Vitals Vital Signs Date Time Temp Pulse Resp B/P (MAP) Pulse Ox O2 Delivery O2 Flow Rate FiO2 01/22/18 08:00 98.7 95 22 122/65 (84) 100 01/22/18 07:00 100 Room Air 01/22/18 04:44 100 01/22/18 04:00 97.4 98 24 116/69 (85) 100 01/22/18 00:10 99 01/22/18 00:00 97.8 97 24 125/67 (86) 100 01/21/18 20:00 98.7 112 24 127/69 (88) 97 01/21/18 20:00 97 Room Air Trach Collar 01/21/18 16:00 98.9 99 20 144/70 (94) 100 01/21/18 12:00 99.6 92 18 122/68 (86) 100 I/O 01/21/18 01/21/18 01/21/18 01/22/18 01/22/18 01/22/18 07:00 15:00 23:00 07:00 15:00 23:00 Intake Total 1094 ml 494 ml 1130 ml Output Total 700 ml 0 ml 400 ml 150 ml 0 ml Balance 394 ml 0 ml 94 ml 980 ml 0 ml Tube Feeding 594 ml 464 ml 600 ml Tube Irrigant 30 ml Other 500 ml 30 ml 500 ml Output Urine Total 700 ml 400 ml 150 ml Tube Feeding Residual Discard 0 ml 0 ml # Voids 2 2 # Bowel Movements 0 Objective Remarks GENERAL: No distress. SKIN: Trach is capped. NECK: Trachea midline. No JVD. CARDIOVASCULAR: Regular rate and rhythm. RESPIRATORY: No secretions. No accessory muscle use. Clear to auscultation. Breath sounds equal bilaterally. GASTROINTESTINAL: Abdomen soft, non-tender, nondistended. Hepatic and splenic margins not palpable. NEUROLOGICAL: More awake and alert. Tracking, follows some commands. Contracted. Able to say one word at a time. Procedures 12/02- lumbar puncture Date of Insertion: Nov 28, 2017 Line: Central Venous Catheter Side: Left Location: Internal, Jugular A/P Problem List: (1) Macrocytic anemia ICD Code: D53.9 - Nutritional anemia, unspecified (2) Leukocytosis ICD Code: D72.829 - Elevated white blood cell count, unspecified Status: Resolved (3) Acute kidney injury ICD Code: N17.9 - Acute kidney failure, unspecified (4) Hyponatremia ICD Code: E87.1 - Hypo-osmolality and hyponatremia (5) Hypotension ICD Code: I95.9 - Hypotension, unspecified (6) DM type 1 (diabetes mellitus, type 1) ICD Code: E10.9 - DM type 1 (diabetes mellitus, type 1) Status: Acute (7) DKA (diabetic ketoacidoses) ICD Code: E13.10 - Other specified diabetes mellitus with ketoacidosis without coma Status: Resolved (8) Acute renal failure ICD Code: N17.9 - Acute kidney failure, unspecified Status: Acute (9) Hyperkalemia ICD Code: E87.5 - Hyperkalemia Status: Acute (10) Shock ICD Code: R57.9 - Shock, unspecified Status: Acute (11) Tobacco abuse ICD Code: Z72.0 - Tobacco abuse Status: Acute Assessment and Plan 62-year-old female with long-term tracheostomy and PEG tube secondary to encephalopathy. Etiology for encephalopathy is related to diabetic ketoacidosis related to type 1 diabetes. Respiratory failure and shock are present at admit. 01/22: Trach is capped, satting well. Able to speak a word at a time. No concerns from nursing. Discussed with case management who stated we have an accepting facility. Will reconsult pulmonology to attempt decannulation prior to discharge. Encephalopathy, improving Mild very gradual improvement given that the patient now awakens to her name/ voice and is not visually tracking Likely long-term Continue monitoring neurological status Palliative care following Elevated troponin Chronic systolic heart failure NSTEMI Cardiomyopathy Continue atorvastatin Continue aspirin Most recent ejection fraction 40% Acute hypoxemic respiratory failure Tracheostomy continue oxygenation as needed Continue pulmonary toilet Continue tracheostomy care Pulmonology following. Will reconsult to assess for decannulation prior to discharge. Moderate protein energy malnutrition Elevated LFT's Continue PEG tube feeds ST consulted for evaluation. Change diet per ST Diabetes mellitus type 1 Follow blood sugars Insulin sliding scale Diabetic diet Continue Levemir. Decrease HS dose as has been hypoglycemic in the AM. Increase AM dose. DVT prophylaxis SCD heparin SQ Discharge Planning Await pulm re-eval then d/c to SNF Problem Qualifiers (1) Leukocytosis: Qualified Codes: D72.829 - Elevated white blood cell count, unspecified (2) Hypotension: Qualified Codes: I95.9 - Hypotension, unspecified (3) DM type 1 (diabetes mellitus, type 1): Qualified Codes: E10.69 - Type 1 diabetes mellitus with other specified complication; E10.65 - Type 1 diabetes mellitus with hyperglycemia (4) DKA (diabetic ketoacidoses): Qualified Codes: E10.11 - Type 1 diabetes mellitus with ketoacidosis with coma (5) Acute renal failure: Qualified Codes: N17.9 - Acute kidney failure, unspecified Shaquille Bell DO Jan 22, 2018 11:26
[2018-01-22] MEDS: INSULIN DETEMIR 100 UNITS/ML VIAL SQ SCH (20:11)
[2018-01-23] VITALS (7 sets, daily range): BP systolic 102–133; BP diastolic 53–94; PULSE 81–107; RESP 16–22; TEMP 97.8–98.8; O2SAT 96–100
[2018-01-23] MEDS: [UNRECOGNIZED DRUG - REMARK] PEG SCH ×4 (03:05→22:00)
[2018-01-23] MEDS: HEPARIN SODIUM - SQ 10,000 UNITS/ML VIAL SQ SCH ×3 (03:05→17:59)
[2018-01-23 05:00] LABS: HEMATOCRIT 39.4 % (35.0-46.0); HEMOGLOBIN 13.3 GM/DL (11.6-15.3); MEAN CELL VOLUME 96.3 FL (80.0-100.0); MEAN CORPUSCULAR HEMOGLOBIN 32.4 PG (27.0-34.0); MEAN CORPUSCULAR HGB CONC 33.7 % (32.0-36.0); MEAN PLATELET VOLUME 8.3 FL (7.0-11.0); PLATELET COUNT 337 TH/MM3 (150-450); RED BLOOD COUNT 4.09 MIL/MM3 (4.00-5.30); RED CELL DISTRIBUTION WIDTH 13.9 % (11.6-17.2); WHITE BLOOD COUNT 6.4 TH/MM3 (4.0-11.0)
[2018-01-23 05:31] LABS: BICARBONATE 26.7 MEQ/L (21.0-32.0); CREATININE 0.65 MG/DL (0.50-1.00); MAGNESIUM 2.2 MG/DL (1.5-2.5)
[2018-01-23] MEDS: INSULIN ASPART SUPPLEMENTAL SCALE SQ SCH ×3 (05:45→18:00)
[2018-01-23] MEDS: FAMOTIDINE 20 MG TAB PEG SCH (08:38)
[2018-01-23] MEDS: ASPIRIN 81 MG CHEW TAB PEG SCH (08:38)
[2018-01-23] MEDS: CARVEDILOL 12.5 MG TAB PEG SCH (08:38)
[2018-01-23] MEDS: URSODIOL 300 MG CAP PO SCH (08:38)
[2018-01-23] MEDS: INSULIN DETEMIR 100 UNITS/ML VIAL SQ SCH (08:39)
[2018-01-23] MEDS: SODIUM CHLORIDE 0.9% FLUSH 10 ML FLUSH IV FLUSH SCH ×3 (09:00→21:30)
--- NOTE | 2018-01-23 17:27 | HHI.PR ---
Subjective Remarks The pt was smiling and resting comfortably. Discussed with nursing at the bedside. No acute complaints. Transferred back from [facility] today. Objective Vitals Vital Signs Date Time Temp Pulse Resp B/P (MAP) Pulse Ox O2 Delivery O2 Flow Rate FiO2 01/23/18 13:50 21 01/23/18 12:00 97.8 81 16 102/53 (69) 96 01/23/18 08:00 98.8 91 16 133/65 (87) 100 01/23/18 07:53 98 01/23/18 07:00 100 Room Air 21 01/23/18 04:00 98.4 107 20 132/94 (107) 96 01/23/18 00:00 97.8 89 22 128/94 (105) 98 01/22/18 22:10 97 21 01/22/18 20:00 98.4 96 20 119/66 (83) 98 01/22/18 19:00 100 Room Air I/O 01/22/18 01/22/18 01/22/18 01/23/18 01/23/18 01/23/18 07:00 15:00 23:00 07:00 15:00 23:00 Intake Total 1130 ml 1188 ml 502 ml Output Total 150 ml 0 ml 300.0 ml Balance 980 ml 0 ml 888.0 ml 502 ml Tube Feeding 600 ml 638 ml 502 ml Tube Irrigant 30 ml 50 ml Other 500 ml 500 ml Output Urine Total 150 ml 300 ml Tube Feeding Residual Discard 0 ml 0 ml # Voids 2 2 4 # Bowel Movements 2 Result Diagram: 01/23/18 0428 01/23/18 0428 Imaging Last Impressions Chest X-Ray 12/23/17 0600 Signed Impressions: Service Date/Time: Saturday, December 23, 2017 04:28 - CONCLUSION: Consolidations and pleural effusions are unchanged. Tracheostomy tube in good position. Landon Graham MD Liver Ultrasound 12/22/17 0000 Signed Impressions: Service Date/Time: Friday, December 22, 2017 09:40 - CONCLUSION: 1. Liver demonstrates no acute finding. However, there is a small volume of free fluid in the abdomen in a perihepatic location. 2. Persistent but overall decreased gallbladder wall thickening. 3. Bilateral pleural effusions. Uziel Troy MD Hepatobiliary Scan Nuclear Medicine 12/18/17 0000 Signed Impressions: Service Date/Time: Monday, December 18, 2017 10:53 - CONCLUSION: 1. Normal uptake and excretion of radiotracer. Dimitri Bird MD ADDENDUM: The there is a air in the report under the medication sections it should read cholecystokinin was administered by slow infusion over 8 minutes beginning at the 60 minute jyoti. Dimitri Bird MD Abdomen/Pelvis CT 12/17/17 0000 Signed Impressions: Service Date/Time: Sunday, December 17, 2017 15:44 - CONCLUSION: 1. There is a trace amount of free air in the upper abdomen anterior to left lobe of the liver and adjacent to the stomach. While nonspecific, this could be related to the G-tube. Suggest correlating with the clinical examination for signs of acute abdomen which would indicate a more concerning cause. 2. Moderately distended ascending and transverse colon. However, no anatomic obstruction is visualized. 3. Signs of fluid overload including bilateral pleural effusions, anasarca, periportal edema, and small volume of free fluid in the abdomen and pelvis. Uziel Troy MD Upper Extremity Ultrasound 12/15/17 Signed Impressions: Service Date/Time: Friday, December 15, 2017 13:57 - CONCLUSION: Nonocclusive thrombus within left internal jugular vein. The remaining venous structures in the left upper extremity appear patent. Uziel Thomas MD Neck CTA 12/11/17 Signed Impressions: Service Date/Time: Monday, December 11, 2017 23:08 - CONCLUSION: No carotid stenosis. Ac Davis MD Head CTA 12/11/17 Signed Impressions: Service Date/Time: Monday, December 11, 2017 23:08 - CONCLUSION: 1. No large vessel stenosis or aneurysm. Ac Davis MD Brain MRI 12/11/17 0000 Signed Impressions: Service Date/Time: Monday, December 11, 2017 11:12 - CONCLUSION: 1. Faint diffusion restriction predominately along the high right parietal convexity with minimal diffusion restriction on the left. Pattern is somewhat unusual for anoxia with the asymmetry. Possible embolic event. CTA of the cervical and intracranial vessels to be performed for further characterization. 2. Chronic changes with some periventricular small vessel ischemic demyelination. 3. Mild ventricular prominence. In the appropriate clinical setting, findings could represent normal pressure hydrocephalus. 4. Bilateral mastoiditis. Mild chronic sinus disease in the sphenoid bilaterally. Dani Titus MD Gall Bladder Ultrasound 12/03/17 0000 Signed Impressions: Service Date/Time: Sunday, December 03, 2017 07:59 - CONCLUSION: 1. Ascites and bilateral pleural effusions. 2. Mildly distended gallbladder without evidence of wall thickening or cholelithiasis. 3. Otherwise unremarkable exam. Boo Cartwright MD Lumbar Puncture Fluoroscopy 12/02/17 0000 Signed Impressions: Service Date/Time: Saturday, December 02, 2017 15:28 - CONCLUSION: Uncomplicated fluoroscopically guided lumbar puncture. Aly Leigh MD Renal Ultrasound 11/29/17 1656 Signed Impressions: Service Date/Time: Wednesday, November 29, 2017 13:16 - CONCLUSION: 1. Both kidneys are sonographically normal without hydronephrosis or nephrolithiasis. 2. Very abnormal appearance of the gallbladder with mural thickening and minimal pericholecystic fluid Dani Titus MD Head CT 11/28/17 0000 Signed Impressions: Service Date/Time: November 15:46 - CONCLUSION: 1. Ventriculomegaly suggesting central cerebral atrophy versus hydrocephalus. Clinical correlation is recommended. 2. No acute infarct, acute hemorrhage, midline shift or extra-axial fluid collections. Dev Christopher MD Objective Remarks GENERAL: No distress. SKIN: Trach is capped. NECK: Trachea midline. No JVD. CARDIOVASCULAR: Regular rate and rhythm. RESPIRATORY: No secretions. No accessory muscle use. Mild wheezing. GASTROINTESTINAL: Abdomen soft, non-tender, nondistended. Hepatic and splenic margins not palpable. NEUROLOGICAL: More awake and alert. Tracking, follows some commands. Contracted. Able to speak minimally at times. Procedures 12/02- lumbar puncture Date of Insertion: Nov 28, 2017 Line: Central Venous Catheter Side: Left Location: Internal, Jugular A/P Problem List: (1) Macrocytic anemia ICD Code: D53.9 - Nutritional anemia, unspecified (2) Leukocytosis ICD Code: D72.829 - Elevated white blood cell count, unspecified Status: Resolved (3) Acute kidney injury ICD Code: N17.9 - Acute kidney failure, unspecified (4) Hyponatremia ICD Code: E87.1 - Hypo-osmolality and hyponatremia (5) Hypotension ICD Code: I95.9 - Hypotension, unspecified (6) DM type 1 (diabetes mellitus, type 1) ICD Code: E10.9 - DM type 1 (diabetes mellitus, type 1) Status: Acute (7) DKA (diabetic ketoacidoses) ICD Code: E13.10 - Other specified diabetes mellitus with ketoacidosis without coma Status: Resolved (8) Acute renal failure ICD Code: N17.9 - Acute kidney failure, unspecified Status: Acute (9) Hyperkalemia ICD Code: E87.5 - Hyperkalemia Status: Acute (10) Shock ICD Code: R57.9 - Shock, unspecified Status: Acute (11) Tobacco abuse ICD Code: Z72.0 - Tobacco abuse Status: Acute Assessment and Plan 62-year-old female with long-term tracheostomy and PEG tube secondary to encephalopathy. Etiology for encephalopathy is related to diabetic ketoacidosis related to type 1 diabetes. Respiratory failure and shock are present at admit. 01/23: Transferred back from [facility]. No concerns from nursing. Still awaiting pulmonology reconsult to assess decannulation prior to discharge. Encephalopathy, improving Mild very gradual improvement given that the patient now awakens to her name/ voice and is not visually tracking Likely long-term Continue monitoring neurological status Palliative care following Elevated troponin Chronic systolic heart failure NSTEMI Cardiomyopathy Continue atorvastatin Continue aspirin Most recent ejection fraction 40% Acute hypoxemic respiratory failure Tracheostomy continue oxygenation as needed Continue pulmonary toilet Continue tracheostomy care Pulmonology following. Will reconsult to assess for decannulation prior to discharge. Moderate protein energy malnutrition Elevated LFT's Continue PEG tube feeds ST consulted for evaluation. Change diet per ST Diabetes mellitus type 1 Follow blood sugars Insulin sliding scale Diabetic diet Continue Levemir. Decrease HS dose as has been hypoglycemic in the AM. Increase AM dose. DVT prophylaxis SCD heparin SQ Discharge Planning Await pulm re-eval then d/c to SNF Problem Qualifiers (1) Leukocytosis: Qualified Codes: D72.829 - Elevated white blood cell count, unspecified (2) Hypotension: Qualified Codes: I95.9 - Hypotension, unspecified (3) DM type 1 (diabetes mellitus, type 1): Qualified Codes: E10.69 - Type 1 diabetes mellitus with other specified complication; E10.65 - Type 1 diabetes mellitus with hyperglycemia (4) DKA (diabetic ketoacidoses): Qualified Codes: E10.11 - Type 1 diabetes mellitus with ketoacidosis with coma (5) Acute renal failure: Qualified Codes: N17.9 - Acute kidney failure, unspecified Shaquille Bell DO Jan 23, 2018 17:27
[2018-01-23] MEDS ORDERED: INSULIN DETEMIR 100 UNITS/ML VIAL SQ SCH (21:00)
[2018-01-24] VITALS: BP 122/68; PULSE 97; RESP 16; TEMP 98.4; O2SAT 96
[2018-01-24] MEDS: URSODIOL 300 MG CAP PO SCH ×2 (00:29→09:46)
[2018-01-24] MEDS: FAMOTIDINE 20 MG TAB PEG SCH ×2 (00:29→09:46)
[2018-01-24] MEDS: CARVEDILOL 12.5 MG TAB PEG SCH ×2 (00:29→09:46)
[2018-01-24] MEDS: INSULIN ASPART SUPPLEMENTAL SCALE SQ SCH ×4 (00:30→17:14)
[2018-01-24] MEDS: HEPARIN SODIUM - SQ 10,000 UNITS/ML VIAL SQ SCH ×3 (01:00→17:15)
[2018-01-24 04:00] VITALS: BP 147/80; PULSE 95; RESP 16; O2SAT 95
[2018-01-24] MEDS: [UNRECOGNIZED DRUG - REMARK] PEG SCH ×3 (04:00→15:32)
[2018-01-24 08:00] VITALS: BP 145/85; PULSE 88; RESP 16; TEMP 98.4; O2SAT 100
[2018-01-24] MEDS: INSULIN DETEMIR 100 UNITS/ML VIAL SQ SCH (09:00)
[2018-01-24] MEDS: SODIUM CHLORIDE 0.9% FLUSH 10 ML FLUSH IV FLUSH SCH ×2 (09:00→09:47)
[2018-01-24] MEDS: ASPIRIN 81 MG CHEW TAB PEG SCH (09:00)
--- NOTE | 2018-01-24 09:35 | HHI.DS ---
Discharge Summary Admission Date Nov 28, 2017 at 15:50 Discharge Date: Jan 24, 2018 Admitting Diagnosis DKA, altered mental status, hyperkalemia, acute renal failure (1) Macrocytic anemia ICD Code: D53.9 - Nutritional anemia, unspecified Diagnosis: Secondary (2) Leukocytosis ICD Code: D72.829 - Elevated white blood cell count, unspecified Diagnosis: Principal Status: Resolved (3) Acute kidney injury ICD Code: N17.9 - Acute kidney failure, unspecified Diagnosis: Principal (4) Hyponatremia ICD Code: E87.1 - Hypo-osmolality and hyponatremia Diagnosis: Secondary (5) Hypotension ICD Code: I95.9 - Hypotension, unspecified Diagnosis: Principal (6) DM type 1 (diabetes mellitus, type 1) ICD Code: E10.9 - DM type 1 (diabetes mellitus, type 1) Diagnosis: Principal Status: Acute (7) DKA (diabetic ketoacidoses) ICD Code: E13.10 - Other specified diabetes mellitus with ketoacidosis without coma Diagnosis: Principal Status: Resolved (8) Acute renal failure ICD Code: N17.9 - Acute kidney failure, unspecified Diagnosis: Principal Status: Acute (9) Hyperkalemia ICD Code: E87.5 - Hyperkalemia Diagnosis: Principal Status: Acute (10) Shock ICD Code: R57.9 - Shock, unspecified Diagnosis: Principal Status: Acute (11) Tobacco abuse ICD Code: Z72.0 - Tobacco abuse Diagnosis: Secondary Status: Acute Procedures 12/02- lumbar puncture Brief History - From Admission This is a 51-year-old female. Date of admission 11/28/2017. Past medical history includes diabetes mellitus type 1 uncontrolled insulin- dependent with retinopathy on home insulin pump, hypertension, allergic rhinitis and chronic benzodiazepine use. She also has history of breast cancer on raloxifene she originally presented to [facility] ED During the workup, patient was noted to have a blood sugar of 808. Elevated acetone. Sodium 135. Potassium 6.0. Ferritin 2.1. Leukocytosis 25,000. Macrocytic anemia. UA negative for infectious etiology. She was bolused with 3 L of 0.9% NaCl IV fluid bolus. She is received 3 ampules of sodium bicarbonate and 1 g calcium gluconate. Chest x-ray post procedure revealed the CT scan of the head is read by the radiologist as ventriculomegaly but otherwise no acute findings. CBC/BMP: 01/23/18 0428 01/23/18 0428 Significant Findings Laboratory Tests Test 01/23/18 04:28 Blood Urea Nitrogen 22 MG/DL (7-18) Random Glucose 250 MG/DL (74-106) Imaging Last Impressions Chest X-Ray 12/23/17 0600 Signed Impressions: Service Date/Time: Saturday, December 23, 2017 04:28 - CONCLUSION: Consolidations and pleural effusions are unchanged. Tracheostomy tube in good position. Landon Graham MD Liver Ultrasound 12/22/17 0000 Signed Impressions: Service Date/Time: Friday, December 22, 2017 09:40 - CONCLUSION: 1. Liver demonstrates no acute finding. However, there is a small volume of free fluid in the abdomen in a perihepatic location. 2. Persistent but overall decreased gallbladder wall thickening. 3. Bilateral pleural effusions. Uziel Troy MD Hepatobiliary Scan Nuclear Medicine 12/18/17 0000 Signed Impressions: Service Date/Time: Monday, December 18, 2017 10:53 - CONCLUSION: 1. Normal uptake and excretion of radiotracer. Dimitri Bird MD ADDENDUM: The there is a air in the report under the medication sections it should read cholecystokinin was administered by slow infusion over 8 minutes beginning at the 60 minute jyoti. Dimitri Bird MD Abdomen/Pelvis CT 12/17/17 0000 Signed Impressions: Service Date/Time: Sunday, December 17, 2017 15:44 - CONCLUSION: 1. There is a trace amount of free air in the upper abdomen anterior to left lobe of the liver and adjacent to the stomach. While nonspecific, this could be related to the G-tube. Suggest correlating with the clinical examination for signs of acute abdomen which would indicate a more concerning cause. 2. Moderately distended ascending and transverse colon. However, no anatomic obstruction is visualized. 3. Signs of fluid overload including bilateral pleural effusions, anasarca, periportal edema, and small volume of free fluid in the abdomen and pelvis. Uziel Troy MD Upper Extremity Ultrasound 12/15/17 0000 Signed Impressions: Service Date/Time: Friday, December 15, 2017 13:57 - CONCLUSION: Nonocclusive thrombus within left internal jugular vein. The remaining venous structures in the left upper extremity appear patent. Uziel Thomas MD Neck CTA 12/11/17 0000 Signed Impressions: Service Date/Time: Monday, December 11, 2017 23:08 - CONCLUSION: No carotid stenosis. Ac Davis MD Head CTA 12/11/17 0000 Signed Impressions: Service Date/Time: Monday, December 11, 2017 23:08 - CONCLUSION: 1. No large vessel stenosis or aneurysm. Ac Davis MD Brain MRI 12/11/17 0000 Signed Impressions: Service Date/Time: Monday, December 11, 2017 11:12 - CONCLUSION: 1. Faint diffusion restriction predominately along the high right parietal convexity with minimal diffusion restriction on the left. Pattern is somewhat unusual for anoxia with the asymmetry. Possible embolic event. CTA of the cervical and intracranial vessels to be performed for further characterization. 2. Chronic changes with some periventricular small vessel ischemic demyelination. 3. Mild ventricular prominence. In the appropriate clinical setting, findings could represent normal pressure hydrocephalus. 4. Bilateral mastoiditis. Mild chronic sinus disease in the sphenoid bilaterally. Dani Titus MD Gall Bladder Ultrasound 12/03/17 0000 Signed Impressions: Service Date/Time: Sunday, December 03, 2017 07:59 - CONCLUSION: 1. Ascites and bilateral pleural effusions. 2. Mildly distended gallbladder without evidence of wall thickening or cholelithiasis. 3. Otherwise unremarkable exam. Boo Cartwright MD Lumbar Puncture Fluoroscopy 12/02/17 0000 Signed Impressions: Service Date/Time: Saturday, December 02, 2017 15:28 - CONCLUSION: Uncomplicated fluoroscopically guided lumbar puncture. Aly Leigh MD Renal Ultrasound 11/29/17 1656 Signed Impressions: Service Date/Time: Wednesday, November 29, 2017 13:16 - CONCLUSION: 1. Both kidneys are sonographically normal without hydronephrosis or nephrolithiasis. 2. Very abnormal appearance of the gallbladder with mural thickening and minimal pericholecystic fluid Dani Titus MD Head CT 11/28/17 0000 Signed Impressions: Service Date/Time: November 15:46 - CONCLUSION: 1. Ventriculomegaly suggesting central cerebral atrophy versus hydrocephalus. Clinical correlation is recommended. 2. No acute infarct, acute hemorrhage, midline shift or extra-axial fluid collections. Dev Christopher MD PE at Discharge GENERAL: No distress. SKIN: Trach is capped. NECK: Trachea midline. No JVD. CARDIOVASCULAR: Regular rate and rhythm. RESPIRATORY: No secretions. No accessory muscle use. Mild wheezing. GASTROINTESTINAL: Abdomen soft, non-tender, nondistended. Hepatic and splenic margins not palpable. NEUROLOGICAL: More awake and alert. Tracking, follows some commands. Contracted. Able to speak minimally at times. Pt update on day of discharge The pt was sitting up in a chair. She looked comfortable and was smiling. Discussed with nursing and pulmonology. Hospital Course Encephalopathy Neurology was consulted. Off sedation since 12/04. Extensive workup negative including LP/CSF workup and cortisol level; only pertinent positives are mild to moderate ventriculomegaly on MRI 11/29. Severe encephalopathy noted on 12/11 EEG. Repeat MRI on 12/11 showing ischemic changes high left parietal lobe. F/U EEG 12/16 without definite seizure activity noted. Phenytoin and phenobarbital were discontinued. Palliative care was following. The pt was made DNR. Her mental status slowly improved. She continued to work with PT, OT and ST. Case management assisted with SNF placement. Acute hypoxemic respiratory failure Iatrogenic PTX status post chest tube placement. She required tracheostomy placement on 12/16/17. She received albuterol/ipratropium aerosols, pulmonary toilet, trach care. Pulmonology was consulted. Status post bronchoscopy 11/29. Sputum (BAL)-E.coli, pansensitive. ID was consulted. The pt's trach was capped and eventually decannulated. She will follow up with pulmonology as an outpt. Malnutrition/ Elevated LFT's GI was consulted. The pt is s/p PEG tube placement and was started on tube feeds. 12/18 HIDA scan: unremarkable. 12/17 CT abdomen/pelvis showed trace amount of free air in the upper abdomen anterior to left lobe of the liver and adjacent to the stomach. this could be related to the G-tube; Moderately distended ascending and transverse colon; No obstruction. 12/12 US Liver: Marked gallbladder wall thickening with minimal pericholecystic fluid; No stones or sludge; Small bilateral pleural effusions. 12/03 gallbladder ultrasound -gallbladder mildly distended without evidence of wall thickening or cholelithiasis; There is ascites and pleural effusions. Her elevated LFTs improved. The pt continued to tolerate tube feeds and was tolerating a pureed diet. She will continue to work with speech therapy. NSTEMI/ Acute systolic heart failure Ejection fraction 40%; LV increased size; Septal hypokinesis. Cardiology was consulted. She was continued on a cardiac regimen. Insulin-dependent diabetes mellitus type 1 Initially she was treated for DKA in the ICU. She was continued on SSI with accucheck every 6hours. Her Levemir was adjusted. She will resume her current dose of Levemir upon discharge. She will follow up with her PCP. Pt Condition on Discharge: Stable Discharge Disposition: Discharge to SNF Discharge Time: > 30 minutes Discharge Instructions DIET: Follow Instructions for: On Tube Feeding, Pureed Diet Additional Diet Instructions: Glucerna 1.5 at 50 ml/hr Activities you can perform: Continue Bedrest Follow up Referrals: PCP Follow-up - 1 Week Pulmonology - 2 Weeks with Lalo Green MD New Medications: Aspirin (Tgt Aspirin) 81 Mg Chw 81 MG PEG DAILY for As directed, #30 EA Atorvastatin (Lipitor) 10 Mg Tab 10 MG PO HS for Cholesterol Management, #30 TAB Carvedilol (Coreg) 12.5 Mg Tab 12.5 MG PEG Q12HR for Blood Pressure Management, #60 TAB Famotidine (Famotidine) 20 Mg Tab 20 MG PEG BID for Stomach, #60 TAB Insulin Detemir Inj (Levemir Inj) 1,000 unit/ 10 ML Vial 8 UNITS SQ HS for Blood Sugar Management, #30 INJECTION Do not mix with any other Insulin. Insulin Detemir Inj (Levemir Inj) 1,000 unit/ 10 ML Vial 15 UNITS SQ DAILY for Blood Sugar Management for 30 Days, #30 INJECTION Do not mix with any other Insulin. [Albuterol-Ipratropium Neb] () 1 AMPULE NEBU 1 AMPULE NEB Q2HR NEB PRN for SHORTNESS OF BREATH, #14 [Free Water] () 1 ML FLUSH 250 ML PEG Q6H for Tube feeds [Ursodiol] () 300 MG CAP 300 MG PO Q12HR for Stomach, #60 Continued Medications: Fluticasone Nasal [place] (Fluticasone Nasal [place]) 50 Mcg/Act Naspr 50 MCG EACH NARE BID for Allergy Management, #1 BOTTLE 0 Refills 50 mcg/spray Insulin Aspart Inj (Novolog Inj) 1,000 Unit/10 Ml Vial 0 SQ DIRECTED for Blood Sugar Management, #10 ML 0 Refills INSULIN PUMP; SLIDING SCALE Multiple Vitamin (Multi-Vitamin Daily) 1 Tab Tab 1 TAB PO DAILY for Nutritional Supplement, TAB 0 Refills Discontinued Medications: Amitriptyline (Amitriptyline) 10 Mg Tab 10 MG PO HS for Control Depression, #90 TAB 0 Refills Estradiol Vaginal (Estrace Vaginal) 0.01% Cream 42.5 GM VAGINAL HS for Estrogen Supplements, #1 TUBE 0 Refills Irbesartan (Irbesartan) 150 Mg Tab 150 MG PO DAILY for Blood Pressure Management, #90 TAB 1 Refill Raloxifene (Raloxifene) 60 Mg Tab 60 MG PO DAILY for Chemotherapy Management, #90 TAB 0 Refills Shaquille Bell DO Jan 24, 2018 09:35
[2018-01-24] MEDS ORDERED: LEVEMIR SQ ×2 (09:41)
[2018-01-24] MEDS ORDERED: Ursodiol PO (09:41)
[2018-01-24] MEDS ORDERED: CARV12.5 PEG (09:41)
[2018-01-24] MEDS ORDERED: ASPI81 PEG (09:41)
[2018-01-24] MEDS ORDERED: FAMO20TA2 PEG (09:41)
[2018-01-24] MEDS ORDERED: Free Water PEG (09:41)
[2018-01-24] MEDS ORDERED: Albuterol-Ipratropium Neb NEB (09:41)
[2018-01-24] MEDS ORDERED: LIPI10TA PO (09:41)
--- NOTE | 2018-01-24 09:56 | HHI.DCPOC ---
Discharge Care Plan Diagnosis: (1) DM type 1 (diabetes mellitus, type 1) (2) Encephalopathy (3) DKA (diabetic ketoacidoses) (4) Hypotension (5) Respiratory failure (6) NSTEMI (non-ST elevated myocardial infarction) Goals to Promote Your Health * To prevent worsening of your condition and complications * To maintain your health at the optimal level Directions to Meet Your Goals Take your medications as prescribed Follow your dietary instruction Follow activity as directed Keep your appointments as scheduled Take your immunizations and boosters as scheduled If your symptoms worsen call your PCP, if no PCP go to Urgent Care Center or Emergency Room Smoking is Dangerous to Your Health. Avoid second hand smoke Call the 24-hour hour crisis hotline for domestic abuse at Shaquille Bell DO Jan 24, 2018 09:56
[2018-01-24 12:00] VITALS: BP 133/73; PULSE 88; RESP 16; TEMP 98.4; O2SAT 98
[2018-01-24 13:15] VITALS: O2SAT 97
[2018-01-24 16:00] VITALS: BP 132/68; PULSE 89; RESP 16; TEMP 98.8; O2SAT 98
== END 2018-01-24 17:15 | DRG 4 ==
LOC: PHED 14:24 → PHEDA 15:50 → PHICU 17:32 → HIMN 12-15 15:25 → N04A 12-24 17:47 → H4EN 12-25 16:39 → N03B 01-20 13:46 → H4EN 01-23 14:52
PROVIDERS: ADMIT Hospitalist; ATTEND Hospitalist
PROC: 02HV33Z Insertion of Infusion Device into Superior Vena Cava, Percutaneous Approach (ICD-10-PCS; 2017-11-28)
PROC: 5A1955Z Respiratory Ventilation, Greater than 96 Consecutive Hours (ICD-10-PCS; 2017-11-29)
PROC: 0B948ZZ Drainage of Right Upper Lobe Bronchus, Via Natural or Artificial Opening Endoscopic (ICD-10-PCS; 2017-11-29)
PROC: 0BH17EZ Insertion of Endotracheal Airway into Trachea, Via Natural or Artificial Opening (ICD-10-PCS; 2017-11-29)
PROC: 0W9930Z Drainage of Right Pleural Cavity with Drainage Device, Percutaneous Approach (ICD-10-PCS; 2017-11-29)
PROC: 0B9B8ZZ Drainage of Left Lower Lobe Bronchus, Via Natural or Artificial Opening Endoscopic (ICD-10-PCS; 2017-11-29)
PROC: 0B988ZZ Drainage of Left Upper Lobe Bronchus, Via Natural or Artificial Opening Endoscopic (ICD-10-PCS; 2017-11-29)
PROC: 0B958ZZ Drainage of Right Middle Lobe Bronchus, Via Natural or Artificial Opening Endoscopic (ICD-10-PCS; 2017-11-29)
PROC: 0B968ZZ Drainage of Right Lower Lobe Bronchus, Via Natural or Artificial Opening Endoscopic (ICD-10-PCS; 2017-11-29)
PROC: 02HV33Z Insertion of Infusion Device into Superior Vena Cava, Percutaneous Approach (ICD-10-PCS; 2017-11-29)
PROC: 0B9B8ZZ Drainage of Left Lower Lobe Bronchus, Via Natural or Artificial Opening Endoscopic (ICD-10-PCS; 2017-11-30)
PROC: 0B948ZZ Drainage of Right Upper Lobe Bronchus, Via Natural or Artificial Opening Endoscopic (ICD-10-PCS; 2017-11-30)
PROC: 0B988ZZ Drainage of Left Upper Lobe Bronchus, Via Natural or Artificial Opening Endoscopic (ICD-10-PCS; 2017-11-30)
PROC: 0B958ZZ Drainage of Right Middle Lobe Bronchus, Via Natural or Artificial Opening Endoscopic (ICD-10-PCS; 2017-11-30)
PROC: 0B968ZZ Drainage of Right Lower Lobe Bronchus, Via Natural or Artificial Opening Endoscopic (ICD-10-PCS; 2017-11-30)
PROC: 3E0F8GC Introduction of Other Therapeutic Substance into Respiratory Tract, Via Natural or Artificial Opening Endoscopic (ICD-10-PCS; 2017-11-30)
PROC: 009U3ZX Drainage of Spinal Canal, Percutaneous Approach, Diagnostic (ICD-10-PCS; 2017-12-02)
PROC: 30233N1 Transfusion of Nonautologous Red Blood Cells into Peripheral Vein, Percutaneous Approach (ICD-10-PCS; 2017-12-03)
PROC: 0DH63UZ Insertion of Feeding Device into Stomach, Percutaneous Approach (ICD-10-PCS; 2017-12-16)
PROC: 0BJ08ZZ Inspection of Tracheobronchial Tree, Via Natural or Artificial Opening Endoscopic (ICD-10-PCS; 2017-12-16)
PROC: 0B113F4 Bypass Trachea to Cutaneous with Tracheostomy Device, Percutaneous Approach (ICD-10-PCS; principal; 2017-12-16 11:50)
DX: E10.10 Type 1 diabetes mellitus with ketoacidosis without coma (principal); R57.9 Shock, unspecified; I21.4 Non-ST elevation (NSTEMI) myocardial infarction; A41.9 Sepsis, unspecified organism; I50.23 Acute on chronic systolic (congestive) heart failure; G93.41 Metabolic encephalopathy; J15.5 Pneumonia due to Escherichia coli; I11.0 Hypertensive heart disease with heart failure; J96.01 Acute respiratory failure with hypoxia; N17.9 Acute kidney failure, unspecified; Z68.1 Body mass index [BMI] 19.9 or less, adult; E87.1 Hypo-osmolality and hyponatremia; I42.9 Cardiomyopathy, unspecified; E44.0 Moderate protein-calorie malnutrition; R04.2 Hemoptysis; G40.89 Other seizures; R18.8 Other ascites; N39.0 Urinary tract infection, site not specified; J95.811 Postprocedural pneumothorax; E10.649 Type 1 diabetes mellitus with hypoglycemia without coma; E87.5 Hyperkalemia; E10.319 Type 1 diabetes mellitus with unspecified diabetic retinopathy without macular edema; Z96.41 Presence of insulin pump (external) (internal); D53.9 Nutritional anemia, unspecified; F17.200 Nicotine dependence, unspecified, uncomplicated; M81.0 Age-related osteoporosis without current pathological fracture; M19.90 Unspecified osteoarthritis, unspecified site; F41.9 Anxiety disorder, unspecified; R00.0 Tachycardia, unspecified; E86.9 Volume depletion, unspecified; E86.0 Dehydration; K29.80 Duodenitis without bleeding; E83.51 Hypocalcemia; H11.423 Conjunctival edema, bilateral; R94.01 Abnormal electroencephalogram [EEG]; Z66 Do not resuscitate; R13.10 Dysphagia, unspecified; R79.89 Other specified abnormal findings of blood chemistry; E83.39 Other disorders of phosphorus metabolism; Z85.3 Personal history of malignant neoplasm of breast; Z79.82 Long term (current) use of aspirin; Z79.4 Long term (current) use of insulin
CPT/HCPCS: 31500; 31600; 31624; 36430; 36556; 36600; 62270; 70450; 70496; 70498; 70551; 71045; 74177; 76705; 76775; 76937; 77001; 78227; 80048; 80053; 80061; 80074; 80076; 80184; 80185; 80202; 80307; 81001; 82010; 82140; 82150; 82164; 82248; 82533; 82550; 82570; 82784; 82805; 82945; 82947; 82948; 83036; 83516; 83520; 83540; 83550; 83605; 83690; 83735; 83873; 84080; 84100; 84132; 84155; 84157; 84300; 84443; 84484; 85007; 85025; 85027; 85610; 85730; 86038; 86255; 86403; 86592; 86850; 86900; 86901; 86920; 87015; 87040; 87070; 87077; 87086; 87102; 87116; 87186; 87205; 87206; 87493; 87529; 87641; 87804; 89051; 93005; 93306; 93971; 94002; 94003; 94640; 94664; 94667; 95819; 96361; 96374; 96375; 99292; A7520; A7521; A9537; C9113; J0131; J0133; J0171; J0290; J0610; J0690; J0692; J0696; J1644; J1815; J1817; J1940; J1953; J2250; J2270; J2370; J2405; J2543; J2560; J2805; J3010; J3370; J3411; J3475; J3480; J7030; J7040; J7042; J7050; J7060; J7613; P9016; Q2009; Q9963; Q9967